=== PATIENT | female | born 1965 | race Caucasian/White ===

== ENCOUNTER 2020-09-29 18:24 | Emergency (ER) | payer MEDICAID, SELFPAY ==
[2020-09-29 18:51] VITALS: BP 117/81; PULSE 90; RESP 16; TEMP 37.1; O2SAT 99; BMI 25.9
--- NOTE | 2020-09-29 19:07 | ED.EXTPRO ---
HPI - Extremity Problem General Chief complaint: Extremity Injury, Upper Stated complaint: HAND PAIN Time Seen by Provider: 09/29/20 18:53 Source: patient Mode of arrival: ambulatory Limitations: no limitations History of Present Illness HPI Narrative: patient has history of arthritis no history of trauma noticed pain in the right wrist since yesterday with slight swelling similar to in the past when she had arthritis flare up Complaint: extremity pain Onset (ago): day(s) Pain Consistency: constant Location: right Severity scale (1-10): 4 Quality: aching Related Data Previous Rx's Medication Instructions Recorded diclofenac sodium 50 mg PO BID #20 tab 09/29/20 prednisone 40 mg PO DAILY #10 tab 09/29/20 Allergies Allergy/AdvReac Type Severity Reaction Status Date / Time Penicillins Allergy Intermediate RASH Unverified 08/12/20 15:12 aspirin [Aspirin] Allergy Mild EYES Unverified 08/12/20 15:12 SWELLING citalopram Allergy Unknown chest pain Verified 07/07/20 00:00 penicillin V Allergy Unknown Verified 07/07/20 00:00 Diltiazem HCl Allergy Unknown Uncoded 07/07/20 00:00 Review of Systems Review of Systems: REVIEW OF SYSTEMS: Pertinent positives and negatives are stated above in the history. GEN: no fevers, chills, fatigue HEENT: no nasal congestion, sore throat, ear pain NEURO: no headache, dizziness, focal weakness PULM: no cough, shortness of breath CV: no chest pain, palpitations, LE edema ABD: no abdominal pain, nausea, vomiting, diarrhea : no dysuria, urgency, frequency SKIN: no rash ROS otherwise negative x 10 PMFSH Past Medical History Medical History Acute anxiety Arthritis Depression Diabetic acidosis, type II GERD (gastroesophageal reflux disease) HTN (hypertension) Right knee injury Social History Social History Alcohol intake: never Smoking Status: Current every day smoker Smoked in Last 30 Days: Yes Use of substances other than those prescribed or required for medical reasons: No Advance Directives: No Advance Directives Information Provided: Yes Physical Exam Vital Signs: Vital Signs: Vital Signs Temp Pulse Resp BP Pulse Ox 09/29/20 18:51 98.7 F 90 16 117/81 99 Body Mass Index 25.9 Appearance: Alert. Oriented X3. No acute distress. Eyes: Pupils equal, round and reactive to light. ENT: Pharynx normal. Neck: Normal inspection. Neck supple. CVS: Normal heart rate and rhythm. Pulses normal. Respiratory: No respiratory distress. Breath sounds normal. Abdomen: Soft and nontender. Skin: Skin warm and dry. N Extremities: right wrist slightly swollen and tender no signs of infection Neuro: Oriented X 3. No motor deficit. No sensory deficit. Course Course Course Narrative: patient with arthritis of right wrist x-ray negative for any significant change. Will apply the wrist pain and give the diclofenec sodium along with prednisone for inflammation Discharge Plan Discharge Clinical Impression: Arthritis of right wrist Patient Disposition: Home, Self-Care Instructions: Arthritis (ED) Additional Instructions: wear the splint for support, take pain medication and prednisone as prescribed. Follow-up with primary care doctor Prescriptions: New prednisone 20 mg tablet 40 mg PO DAILY Qty: 10 RF: 0 diclofenac sodium 50 mg tablet,delayed release (DR/EC) 50 mg PO BID Qty: 20 RF: 0
--- NOTE | 2020-09-29 19:09 | XR_ITS ---
EXAMINATION: RIGHT HAND-WRIST CLINICAL INFORMATION: Severe pain. COMPARISON: None TECHNIQUE: 4 views of the hand and wrist FINDINGS: There is no fracture. No dislocation. No focal bone lesion or abnormal periosteal reaction. Mild degenerative change of the first metacarpal carpal joint of joint narrowing and subchondral osteosclerosis. No soft tissue calcifications. XR/XR hand wrist RT IMPRESSION: 1. No acute abnormality. 2. Degenerative joint disease of the first metacarpal carpal joint.
[2020-09-29] MEDS: predniSONE 20 MG TABLET 40 MG PO (19:19)
[2020-09-29] MEDS: oxyCODONE HCl Immed Release 5 MG TABLET 10 MG PO (19:20)
== END 2020-09-29 20:00 | disposition home or self-care (01) ==
PROVIDERS: Emergency Provider Internal Medicine; PCP Family Medicine
DX: M19.031 Primary osteoarthritis, right wrist (principal); M25.532 Pain in left wrist; M25.531 Pain in right wrist; Z79.899 Other long term (current) drug therapy; F17.210 Nicotine dependence, cigarettes, uncomplicated; Z71.6 Tobacco abuse counseling
CPT/HCPCS: 73110; 73130; 99283; 99284

== ENCOUNTER 2020-10-10 11:17 | Emergency (ER) | payer MEDICAID, SELFPAY ==
--- NOTE | 2020-10-10 | XR_ITS ---
EXAMINATION: XR RIBS, LEFT CLINICAL INFORMATION: Fall with left-sided rib pain COMPARISON: Chest x-ray 12/23/2019 TECHNIQUE: 3 views of the left ribs were obtained. FINDINGS: Cardiac silhouette is normal in size. The lungs are well aerated. No lobar consolidation, pleural effusion or pneumothorax. No left-sided rib fracture. XR/XR ribs LT min 3V w CXR1V IMPRESSION: No left-sided rib fractures.
[2020-10-10 11:23] VITALS: BP 112/79; PULSE 100; RESP 18; TEMP 36.4; O2SAT 100; BMI 25.6
--- NOTE | 2020-10-10 11:51 | ED.BACK ---
HPI - Back Pain/Injury General Chief Complaint: Back Pain/Injury Stated Complaint: FLANK PAIN Time Seen by Provider: 10/10/20 11:51 Source: patient Mode of arrival: ambulatory Limitations: no limitations History of Present Illness HPI Narrative: 55 y/o female presenting with left sided rib pain and middle back pain after a slip and fall on her stairs at home 2 days ago. She states the pain is worse with movement and with deep breaths and is all along her left side. She denies shortness of breath or difficulty breathing. She has not been taking any medications for the pain. MD elicited complaint: fall Pertinent past history: recent trauma Onset (ago): day(s) (2) Timing: constant Severity: moderate Pain scale (0-10): 8 Similar Symptoms Previously: No Quality: sharp and aching Location: left flank Radiation: none Exacerbating factors: movement, deep breaths and coughing/sneezing Relieving factors: immobilization Context: fall Associated symptoms: denies other symptoms Work related injury: No Related Data Previous Rx's Medication Instructions Recorded diclofenac sodium 50 mg PO BID #20 tab 09/29/20 prednisone 40 mg PO DAILY #10 tab 09/29/20 cyclobenzaprine 5 mg PO TID PRN #14 tab 10/10/20 hydrocodone-acetaminophen [[place]] 1 tab PO Q8H PRN #6 tab 10/10/20 lidocaine [Lidoderm] 1 patch TOPICAL DAILY #15 ea 10/10/20 naproxen 500 mg PO BID PRN #20 tab 10/10/20 Allergies Allergy/AdvReac Type Severity Reaction Status Date / Time Penicillins Allergy Intermediate RASH Unverified 08/12/20 15:12 aspirin [Aspirin] Allergy Mild EYES Unverified 08/12/20 15:12 SWELLING citalopram Allergy Unknown chest pain Verified 07/07/20 00:00 penicillin V Allergy Unknown Verified 07/07/20 00:00 Diltiazem HCl Allergy Unknown Uncoded 07/07/20 00:00 Review of Systems Review of Systems: Constitutional: No Fever, No Chills Cardiovascular: No Chest Pain, No SOB, No Orthopnea, No Edema Respiratory: No Cough, No Sputum, No Wheezing, No dyspnea Gastrointestinal: No Nausea, No Vomiting, No Diarrhea, No abdominal Pain Genitourinary: No Dysuria, No Urinary Frequency, No Hematuria Musculoskeletal: + joint pain, + Myalgias Skin: No Skin Lesions, No rash Neuro: No Weakness, No Numbness, No Dizziness, No Headache Psych: No Anxiety/Panic, No Depression Heme/Lymph: No Bruising PMFSH Past Medical History Attestation statement: The following information was validated with the patient. Medical History Acute anxiety Arthritis Depression Diabetic acidosis, type II GERD (gastroesophageal reflux disease) HTN (hypertension) Right knee injury Social History Social History Alcohol intake: never Smoking Status: Current every day smoker Advance Directives: No Advance Directives Information Provided: Yes Physical Exam Vital Signs: Vital Signs: Last Vital Signs Temp 97.6 F 10/10/20 11:23 Pulse 100 10/10/20 11:23 Resp 18 10/10/20 11:23 BP 112/79 10/10/20 11:23 Pulse Ox 100 10/10/20 11:23 Body Mass Index 25.6 Appearance: Alert. Oriented X3. Appears uncomfortable. HEENT: normal inspection CVS: Normal heart rate and rhythm. Pulses normal. Respiratory: No respiratory distress. Lung sounds are clear bilaterally. Skin: Skin warm and dry. Normal skin color. Normal skin turgor. No rashes. Back: no ecchymosis of left flank, significant tenderness to posterior/lateral ribs, soft tissue tenderness of latitimus dorsi and infraspinatous Extremities: normal left shoulder, elbow and wrist inspection and palpation. Full ROM. Neuro: Oriented X 3. No motor deficit. No sensory deficit. Course Course Course Narrative: 55 y/o with left sided lateral/posterior rib pain and middle back pain after she fell down stairs 2 days ago. No deformity or bruising. She is not on anticoagulation, did not hit her head or lose consciousness. XR pending to assess for possible rib fracture. Reevaluation(s) Reevaluation #1: Spoke with [facility] - error in sending results - they were discussed over the phone. No acute abnormality was seen, including no PTX, no rib fractures. Results were discussed with patient. Will treat for contusion. Stable for d/c. Encouraged to f/u with PCP this week. Discharge Plan Discharge Clinical Impression: Contusion of back wall of thorax Qualifiers: Encounter type: initial encounter Thoracic wall location detail: left Qualified Code(s): S20.222A - Contusion of left back wall of thorax, initial encounter Patient Disposition: Home, Self-Care Instructions: Contusion in Adults (ED) Additional Instructions: Rest. Use ice and/or heat to the area several times per day to help with pain and discomfort. Follow up with your doctor this week. Take the medications as prescribed as needed for pain. If you develop shortness of breath, difficulty breathing or chest pain call 911 or come back to the ER for further evaluation. Prescriptions: New lidocaine [Lidoderm] 5 % adhesive patch,medicated 1 patch topical DAILY Qty: 15 RF: 0 naproxen 500 mg tablet 500 mg PO BID PRN (Reason: pain) Qty: 20 RF: 0 cyclobenzaprine 5 mg tablet 5 mg PO TID PRN (Reason: muscle spasm) Qty: 14 RF: 0 hydrocodone-acetaminophen [[place]] 5-325 mg tablet 1 tab PO Q8H PRN (Reason: pain) Qty: 6 RF: 0 No Action prednisone 20 mg tablet 40 mg PO DAILY Qty: 10 RF: 0 diclofenac sodium 50 mg tablet,delayed release (DR/EC) 50 mg PO BID Qty: 20 RF: 0
[2020-10-10] MEDS: Ibuprofen 600 MG TABLET PO (12:07)
[2020-10-10] MEDS: HYDROcodone Bit/Acetam 5/325 TABLET 1 TAB PO (12:08)
== END 2020-10-10 13:30 | disposition home or self-care (01) ==
PROVIDERS: Emergency Provider Emergency Medicine; PCP Family Medicine
DX: S20.222A Contusion of left back wall of thorax, initial encounter (principal); S30.0XXA Contusion of lower back and pelvis, initial encounter; M54.5 Low back pain; F17.200 Nicotine dependence, unspecified, uncomplicated; W10.9XXA Fall (on) (from) unspecified stairs and steps, initial encounter; Y93.9 Activity, unspecified; Y92.9 Unspecified place or not applicable; Y99.9 Unspecified external cause status; Z71.6 Tobacco abuse counseling; Z79.899 Other long term (current) drug therapy
CPT/HCPCS: 71101; 99283

== ENCOUNTER 2020-11-22 11:32 | Outpatient (REF) | payer MEDICAID, SELFPAY | END 2020-11-22 11:33 | disposition home or self-care (01) | LOC: HO.LAB 11:32 | PROVIDERS: Visit Provider Internal Medicine | DX: Z20.828 Contact with and (suspected) exposure to other viral communicable diseases (principal) | CPT/HCPCS: C9803; U0003 ==

== ENCOUNTER 2021-05-03 12:47 | Outpatient (REF) | payer OTHER, SELFPAY ==
--- NOTE | ~2021-05-03 | MM_ITS ---
EXAMINATION: MM SCREENING DIGITAL BREAST TOMOSYNTHESIS, BILATERAL CLINICAL INFORMATION: Screening. Asymptomatic. The lifetime risk of breast cancer based on the Tyrer-Cuzick Model is 7%. COMPARISON: Mammography: 11/04/2015, 08/26/2014 TECHNIQUE: Digital breast tomosynthesis is performed in both the craniocaudal and mediolateral oblique views along with computer-aided detection (CAD). Synthesized 2D images are generated from the tomosynthesis. FINDINGS: There are scattered areas of fibroglandular density (ACR BI-RADS breast composition Category b). Parenchymal pattern is similar to prior studies. There is no significant mass or architectural abnormality or developing density. No abnormal calcifications. The axilla and skin contours are unremarkable. No significant changes. MM/MM tomosynthesis screening BI IMPRESSION: No mammographic evidence of malignancy. ASSESSMENT: BI-RADS 1: Negative RECOMMENDATION: Routine annual mammography screening. This patient's information was entered into a reminder system with a target due date for their next mammogram.
== END 2021-05-03 12:48 | disposition home or self-care (01) ==
LOC: HO.MAMMO 12:47
PROVIDERS: PCP Family Medicine; Visit Provider Family Medicine
DX: Z12.31 Encounter for screening mammogram for malignant neoplasm of breast (principal)
CPT/HCPCS: 77063; 77067

== ENCOUNTER 2021-07-08 19:57 | Emergency (ER) | payer MEDICAID, SELFPAY ==
--- NOTE | ~2021-07-08 | XR_ITS ---
EXAMINATION: XR KNEE, RIGHT CLINICAL INFORMATION: Pain and swelling status post fall COMPARISON: 12/23/2019 TECHNIQUE: Four views of the right knee. FINDINGS: No fracture or subluxation. Moderate lateral compartment joint space narrowing. Tricompartmental marginal osteophytes are present. Moderate joint effusion. XR/XR knee RT 4V IMPRESSION: Moderate joint effusion. Moderate tricompartment degenerative change. No acute fracture
[2021-07-08 20:05] VITALS: BP 123/81; PULSE 104; RESP 16; TEMP 36.5; O2SAT 98; BMI 25.6
--- NOTE | 2021-07-08 22:19 | ED_ITS ---
HPI - Extremity Injury (Lower) General Chief Complaint: Extremity Injury, Lower Stated Complaint: fall Time Seen by Provider: 07/08/21 22:18 Source: patient Mode of arrival: ambulatory History of Present Illness HPI Narrative: 55-year-old female with a past medical history of anxiety, arthritis, depression, diabetes, GERD, hypertension, presenting to the ED complaining of right knee pain and swelling s/p trip and fall on stairs 3 days ago. Reports fell on buttock/twisted knee, denies head trauma or LOC. Reports pain with ambulation/movement. Denies numbness, tingling, weakness MD complaint: knee injury Related Data Previous Rx's Medication Instructions Recorded diclofenac sodium 50 mg 50 mg PO BID #20 tab 09/29/20 tablet,delayed release prednisone 20 mg tablet 40 mg PO DAILY #10 tab 09/29/20 cyclobenzaprine 5 mg tablet 5 mg PO TID PRN #14 tab 10/10/20 hydrocodone 5 mg-acetaminophen 325 1 tab PO Q8H PRN #6 tab 10/10/20 mg tablet ([place]) lidocaine 5 % topical patch 1 patch TOPICAL DAILY #15 ea 10/10/20 (Lidoderm) naproxen 500 mg tablet 500 mg PO BID PRN #20 tab 10/10/20 acetaminophen 500 mg tablet 500 mg PO Q6H PRN #20 tab 07/08/21 (Tylenol Extra Strength) naproxen 500 mg tablet 500 mg PO BID PRN 10 Days #20 tab 07/08/21 Allergies Allergy/AdvReac Type Severity Reaction Status Date / Time Penicillins Allergy Intermediate RASH Unverified 08/12/20 15:12 aspirin [Aspirin] Allergy Mild EYES Unverified 08/12/20 15:12 SWELLING citalopram Allergy Unknown chest pain Verified 07/07/20 00:00 penicillin V Allergy Unknown Verified 07/07/20 00:00 Diltiazem HCl Allergy Unknown Uncoded 07/07/20 00:00 Review of Systems Review of Systems: Constitutional: No Fever, No Chills Musculoskeletal: + joint pain, No Myalgias, + Joint Swelling Skin: No Skin Lesions, No rash Neuro: No Weakness, No Numbness, No Paresthesias, no head trauma, no LOC Yes all other systems are reviewed and are negative PMFSH Past Medical History Attestation statement: The following information was validated with the patient. Medical History Acute anxiety Arthritis Depression Diabetic acidosis, type II GERD (gastroesophageal reflux disease) HTN (hypertension) Right knee injury Social History Social History Alcohol intake: never Advance Directives: No Advance Directives Information Provided: Yes Patient : No Physical Exam Vital Signs: Vital Signs: Last Vital Signs Temp 97.7 F 07/08/21 20:05 Pulse 104 H 07/08/21 20:05 Resp 16 07/08/21 20:05 BP 123/81 07/08/21 20:05 Pulse Ox 98 07/08/21 20:05 Body Mass Index 25.6 Const: General: cooperative and healthy appearing Orientation/consciousness: patient oriented x3 Limitations: no limitations HENMT: Head: Yes normal to inspection and Yes atraumatic Ears: hearing grossly normal bilaterally General nose exam: Normal external nose present Face and sinus: Yes normal facial exam Eyes: General: appearance normal, both eyes and all related structures EOM: EOMs intact bilaterally Neck: Neck: Yes normal visual inspection Resp: Effort & Inspection: normal respiratory effort and no respiratory distress Cardio: Rate: regular rate Peripheral pulses: dorsalis pedis present Skin: Rashes: no rashes Wounds: no wounds Neuro: General: patient oriented x3 and tone normal Extrem: Other: Right knee with notable swelling/effusion > medial aspect. Tender to palpation. Decreased flexion secondary to pain. Sensation intact to light touch. NV intact Course Course Course Narrative: XR knee RT 4V IMPRESSION: Moderate joint effusion. Moderate tricompartment degenerative change. No acute fracture ?>> results discussed with patient. Luis wrap applied. Discussion needs to follow-up with orthopedics/PCP for likely MRI MDM - Extremity Injury (Lower) MDM Narrative Medical decision making narrative: ?55-year-old female with a past medical history of anxiety, arthritis, depression, diabetes, GERD, hypertension, presenting to the ED complaining of right knee pain and swelling s/p trip and fall on stairs 3 days ago. On exam mildly tachycardic likely from pain, physical exam as above. Concern for ligamental/tendon or meniscal injury vs fracture. Will obtain x-rays Medical Records Attestation: I reviewed the patient's medical records. Lab Data Attestation: I reviewed the patient's lab results. Discharge Plan Discharge Clinical Impression: Joint effusion Qualifiers: Effusion of joint location: knee Laterality: right Qualified Code(s): M25.461 - Effusion, right knee Patient Disposition: Home, Self-Care Instructions: Swollen Knee Joint (ED) Additional Instructions: Your x-ray showed a moderate joint effusion, you likely have a ligamental, tendon, or meniscal injury, you will likely need MRI outpatient Follow-up with her primary care doctor or Orthopedics Wear Luis about home for comfort/debility Ice and elevate her knee Naproxen as an anti-inflammatory/pain medication, take with food In addition take Tylenol If pain becomes unbearable return to the ED Prescriptions: New acetaminophen [Tylenol Extra Strength] 500 mg tablet 500 mg PO Q6H PRN (Reason: pain or fever) Qty: 20 RF: 0 naproxen 500 mg tablet 500 mg PO BID PRN (Reason: pain) 10 Days Qty: 20 RF: 0 No Action prednisone 20 mg tablet 40 mg PO DAILY Qty: 10 RF: 0 diclofenac sodium 50 mg tablet,delayed release (DR/EC) 50 mg PO BID Qty: 20 RF: 0 lidocaine [Lidoderm] 5 % adhesive patch,medicated 1 patch topical DAILY Qty: 15 RF: 0 naproxen 500 mg tablet 500 mg PO BID PRN (Reason: pain) Qty: 20 RF: 0 cyclobenzaprine 5 mg tablet 5 mg PO TID PRN (Reason: muscle spasm) Qty: 14 RF: 0 hydrocodone-acetaminophen [[place]] 5-325 mg tablet 1 tab PO Q8H PRN (Reason: pain) Qty: 6 RF: 0 Referrals: Angela Diamond PA-C [[facility]] - 5 days
[2021-07-08] MEDS: Ketorolac Tromethamine 15 MG/ML VIAL 30 MG IM (22:43)
== END 2021-07-08 22:43 | disposition home or self-care (01) ==
PROVIDERS: Emergency Provider Emergency Medicine; PCP Family Medicine
DX: M25.461 Effusion, right knee (principal); M25.561 Pain in right knee; I10 Essential (primary) hypertension; Z79.899 Other long term (current) drug therapy
CPT/HCPCS: 73564; 96372; 99283; 99284; J1885

== ENCOUNTER → 2021-08-03 08:19 | Outpatient (BNVA) | payer MEDICAID, SELFPAY | PROVIDERS: PCP Family Medicine; Referring Provider Family Medicine; Visit Provider Physician Assistant ==

== ENCOUNTER → 2021-09-20 08:10 | Day surgery (SDC) | payer MEDICAID, SELFPAY ==
[2021-09-14 12:09] VITALS: BMI 27.4
--- NOTE | 2021-09-19 08:51 | HO.ANESPROP2 ---
HPI - Anesthesia Eval Consult details Narrative: 09/20/21 - Cx'd d/t cough, tachy, low O2. Pt to go to ED or f/u with PCP 56yo F for Colonoscopy PMFSH Active Problems Active Problems: All Active Problems (Updated 09/14/21 @ 12:15 by Haley Alan, RN) Encounter for screening colonoscopy (Acute) Past Medical History Medical History (Updated 09/14/21 @ 12:15 by Haley Alan, RN) Acute anxiety Arthritis Depression Diabetic acidosis, type II GERD (gastroesophageal reflux disease) HTN (hypertension) Hx of renal calculi Right knee injury Surgical History Surgical History (Updated 09/14/21 @ 12:14 by Haley Alan, RN) History of hysterectomy Hx of arthroscopy of right knee Hx of cystoscopy Social History Social History (Updated 09/14/21 @ 12:09 by Haley Alan, RN) Household Members: Family Patient Tobacco Use Status: Never used Tobacco Are you DNR?: No Advance Directives: No Advance Directives Information Provided: No (mailed info) Advance Directives on File: No Recently lost weight without trying: No Current occupational status: employed Meds Allergies Allergy/AdvReac Type Severity Reaction Status Date / Time aspirin [Aspirin] Allergy Intermediate EYES Verified 09/14/21 12:06 SWELLING Penicillins Allergy Intermediate RASH Verified 09/14/21 12:06 citalopram Allergy Unknown chest pain Verified 09/14/21 12:06 Diltiazem HCl Allergy Unknown Unknown Uncoded 09/14/21 12:06 Home Medications Medication Instructions Recorded Confirmed Last Taken Type amitriptyline 50 mg tablet 50 mg PO DAILY 08/03/21 09/14/21 Unknown History atorvastatin 20 mg tablet 20 mg PO DAILY 08/03/21 09/14/21 Unknown History hydroxyzine HCl 25 mg tablet 25 mg PO BID PRN 08/03/21 09/14/21 Unknown History lisinopril 40 mg tablet 40 mg PO DAILY 08/03/21 09/14/21 Unknown History metformin 500 mg tablet 500 mg PO BID 08/03/21 09/14/21 Unknown History metoprolol succinate 50 mg 50 mg PO DAILY 08/03/21 09/14/21 Unknown History tablet,extended release 24 hr omeprazole 20 mg capsule,delayed 20 mg PO DAILY 08/03/21 09/14/21 Unknown History release sertraline 100 mg tablet 100 mg PO DAILY 08/03/21 09/14/21 Unknown History tramadol 50 mg tablet 50 mg PO DAILY 08/03/21 09/14/21 Unknown History ciclesonide 80 mcg/actuation 1 puff INHALATION BID 09/14/21 09/14/21 Unknown History aerosol inhaler ([place]) levalbuterol tartrate 45 2 puff PO Q6H 09/14/21 09/14/21 Unknown History mcg/actuation aerosol inhaler (Xopenex HFA) Exam Exam Date and Time: September 19, 2021 0851 Height,Weight and Vital Signs: Height 5 ft 2 in Weight 68.039 kg Assessment and Plan Assessment Anesthesia Assessment: Chart Reviewed
--- NOTE | 2021-09-20 08:41 | PC.NURSE ---
patient has nonproductive cough x2days, lungs clear, used inhaler this morning, 02 saturation between 90-94%, tachycardic 101-110. afebrile. poc 380. anesthesia aware.
[2021-09-20 08:52] LABS: Glucose, Whole Blood 357 mg/dL (60-115)
--- NOTE | 2021-09-20 08:55 | PC.NURSE ---
with interpretor, procedure cancelled. patient decided to walk to ED to see if there is a wait. she will go to her pcp today if she doesn't stay in the ED. Dr Hernandez and Dr Selby aware and agrees with plan of care.
--- NOTE | 2021-09-20 09:10 | PC.NURSE ---
patient aware of importance of following up with ED or pcp
[2021-09-20 11:15] LABS: Glucose, Whole Blood 380 mg/dL (60-115)
== END ==
PROVIDERS: PCP Family Medicine; Visit Provider Internal Medicine Gastroenterology
DX: Z12.11 Encounter for screening for malignant neoplasm of colon (principal); Z53.09 Procedure and treatment not carried out because of other contraindication; E11.10 Type 2 diabetes mellitus with ketoacidosis without coma; Z79.84 Long term (current) use of oral hypoglycemic drugs
CPT/HCPCS: 82947

== ENCOUNTER 2021-11-06 16:26 | Emergency (ER) | payer MEDICAID, SELFPAY ==
[2021-11-06 16:32] VITALS: BP 121/82; PULSE 86; RESP 18; TEMP 36.9; O2SAT 98; BMI 27.3
[2021-11-06 16:42] LABS: Glucose, Whole Blood 444 mg/dL (60-115)
--- NOTE | 2021-11-06 19:36 | ED_ITS ---
HPI - General Adult General Chief complaint: General Medical Stated complaint: blood sugar is high Time Seen by Provider: 11/06/21 19:36 Source: patient Mode of arrival: ambulatory Limitations: language barrier History of Present Illness HPI narrative: Patient diabetic for more than 7 years on oral hypoglycemic metf ormin 500 mg twice daily for last few days noted blood sugars running high her usual blood sugar is around 300 range and for last 1 week more than 400 and today was reading high. Patient denied any fever or chills no urinary complaints no cough no shortness of breath no open wounds Related Data Home Medications Medication Instructions Recorded Confirmed amitriptyline 50 mg tablet 50 mg PO DAILY 08/03/21 09/14/21 atorvastatin 20 mg tablet 20 mg PO DAILY 08/03/21 09/14/21 hydroxyzine HCl 25 mg tablet 25 mg PO BID PRN 08/03/21 09/14/21 lisinopril 40 mg tablet 40 mg PO DAILY 08/03/21 09/14/21 metformin 500 mg tablet 500 mg PO BID 08/03/21 09/14/21 metoprolol succinate 50 mg 50 mg PO DAILY 08/03/21 09/14/21 tablet,extended release 24 hr omeprazole 20 mg capsule,delayed 20 mg PO DAILY 08/03/21 09/14/21 release sertraline 100 mg tablet 100 mg PO DAILY 08/03/21 09/14/21 tramadol 50 mg tablet 50 mg PO DAILY 08/03/21 09/14/21 ciclesonide 80 mcg/actuation 1 puff INHALATION BID 09/14/21 09/14/21 aerosol inhaler (Alvesco) levalbuterol tartrate 45 2 puff PO Q6H 09/14/21 09/14/21 mcg/actuation aerosol inhaler (Xopenex HFA) Previous Rx's Medication Instructions Recorded cyclobenzaprine 5 mg tablet 5 mg PO TID PRN #14 tab 10/10/20 lidocaine 5 % topical patch 1 patch TOPICAL DAILY #15 ea 10/10/20 (Lidoderm) acetaminophen 500 mg tablet 500 mg PO Q6H PRN #20 tab 07/08/21 (Tylenol Extra Strength) bisacodyl 5 mg tablet,delayed 10 mg PO ONCE 1 Days #2 tab 09/30/21 release (Dulcolax (bisacodyl)) polyethylene glycol 3350 17 238 g PO ONCE 1 Days #238 g 09/30/21 gram/dose oral powder (Miralax) Allergies Allergy/AdvReac Type Severity Reaction Status Date / Time aspirin [Aspirin] Allergy Intermediate EYES Verified 10/24/21 16:12 SWELLING Penicillins Allergy Intermediate RASH Verified 10/24/21 16:12 citalopram Allergy Unknown chest pain Verified 10/24/21 16:12 Diltiazem HCl Allergy Unknown Unknown Uncoded 10/24/21 16:12 Review of Systems Review of Systems: Yes all other systems are reviewed and are negative [facility] Past Medical History Medical History Acute anxiety Arthritis Depression Diabetic acidosis, type II GERD (gastroesophageal reflux disease) HTN (hypertension) Hx of renal calculi On beta mariaelena at home Right knee injury Surgical History History of hysterectomy Hx of arthroscopy of right knee Hx of cystoscopy Social History Social History Household Members: Family Patient Tobacco Use Status: Never used Tobacco Advance Directives: No Advance Directives Information Provided: Yes Patient : No Current occupational status: employed Physical Exam Vital Signs: Vital Signs: Last Vital Signs Temp 97.8 F 11/06/21 22:24 Pulse 99 11/06/21 22:24 Resp 16 11/06/21 22:24 BP 118/79 11/06/21 22:24 Pulse Ox 98 11/06/21 22:24 BMI result Body Mass Index 27.3 Appearance: Alert. Oriented X3. No acute distress. Eyes: No pallor or icterus ENT: Pharynx normal. Oral Mucosa moist Neck: Normal inspection. Neck supple. CVS: Normal heart rate and rhythm. Pulses normal. Respiratory: No respiratory distress. Equal air entry bilateral, no wheezing/r ales/rhonchi Abdomen: Soft and nontender. Bowel sounds are present, no mass palpable, no CVA tenderness Skin: Skin warm and dry. Normal skin color. Normal skin turgor. Extremities: No lower extremity edema. No calf tenderness Neuro: Oriented X 3. No motor deficit. Medical Decision Making MDM Narrative Medical decision making narrative: Patient diabetic nonketotic improved after insulin will increase the dose of metformin to 1000 mg twice daily advised to follow with PCP Lab Data Result diagrams: 11/06/21 19:39 11/06/21 19:39 Labs: Lab Results 11/06/21 11/06/21 11/06/21 Range/Units 16:39 19:38 19:39 WBC 9.3 (4.8-10.8) X10*3/uL RBC 5.04 (4.20-5.50) X10*6/uL Hgb 12.5 (12.0-16.0) g/dl Hct 39.4 (37.0-47.0) % MCV 78.2 L (80.0-98.0) fL MCH 24.8 L (27.0-33.0) pg MCHC 31.7 (31.0-35.0) g/dl RDW 14.3 (11.0-16.0) % Plt Count 234 (160-400) X10*3/uL MPV 10.0 (9.4-12.3) fL Immature Gran % (Auto) 0.6 H (0.0-0.4) % Neut % (Auto) 71.2 (45-73) % Lymph % (Auto) 19.4 L (20-40) % [place] % (Auto) 4.0 (2-11) % Eos % (Auto) 4.7 H (0-4) % Baso % (Auto) 0.1 (0-2) % Lymph # (Auto) 1.8 (1.2-4.9) X10*3/uL [place] # (Auto) 0.4 (0.1-1.2) X10*3/uL Eos # (Auto) 0.4 (0.0-0.4) X10*3/uL Baso # (Auto) 0.0 (0.0-0.2) X10*3/uL Abs Immat Gran (auto) 0.06 H (0.00-0.03) X10*3/uL Absolute Neuts (auto) 6.6 (2.0-8.3) x10*3/uL Absolute Nucleated RBC 0.000 (0.0-0.012) X10*3/uL Nucleated RBC % (auto) 0.0 (0.0-0.2) /100WBC Sodium (135-145) mmol/L Potassium (3.3-5.1) mmol/L Chloride (96-108) mmol/L Carbon Dioxide (22-29) mmol/L Anion Gap (12-20) BUN (9-16) mg/dL Creatinine (0.5-1.4) mg/dL Estim Creat Clear Calc Estimated GFR POC Glucose 444 H* (60-115) mg/dL Random Glucose (60-115) mg/dL Calcium (8.4-10.2) mg/dL Phosphorus (2.7-4.5) mg/dL Magnesium (1.6-2.6) mg/dL Total Bilirubin (0.0-1.0) mg/dL AST (5-31) U/L ALT (0-31) U/L Alkaline Phosphatase (39-117) U/L Total Protein (6.5-8.0) g/dL Albumin (3.5-5.0) g/dL Urine Color Urine Appearance Urine pH (5.0-8.0) Ur Specific [place] (1.005-1.025) Urine Protein (NEG-TRACE) MG/DL Urine Glucose (UA) (NEG) MG/DL Urine Ketones (NEG) MG/DL Urine Blood (NEG) Urine Nitrite (NEG) Ur Leukocyte Esterase (NEG) Urine RBC (0) /HPF Urine WBC (0-4) /HPF Ur Squamous Epith Cells /LPF Urine Bacteria /LPF Urine Mucus /LPF Ethyl Alcohol < 10 mg/dL Acetone, Qual (Negative) 11/06/21 11/06/21 11/06/21 Range/Units 19:39 19:56 20:36 WBC (4.8-10.8) X10*3/uL RBC (4.20-5.50) X10*6/uL Hgb (12.0-16.0) g/dl Hct (37.0-47.0) % MCV (80.0-98.0) fL MCH (27.0-33.0) pg MCHC (31.0-35.0) g/dl RDW (11.0-16.0) % Plt Count (160-400) X10*3/uL MPV (9.4-12.3) fL Immature Gran % (Auto) (0.0-0.4) % Neut % (Auto) (45-73) % Lymph % (Auto) (20-40) % [place] % (Auto) (2-11) % Eos % (Auto) (0-4) % Baso % (Auto) (0-2) % Lymph # (Auto) (1.2-4.9) X10*3/uL [place] # (Auto) (0.1-1.2) X10*3/uL Eos # (Auto) (0.0-0.4) X10*3/uL Baso # (Auto) (0.0-0.2) X10*3/uL Abs Immat Gran (auto) (0.00-0.03) X10*3/uL Absolute Neuts (auto) (2.0-8.3) x10*3/uL Absolute Nucleated RBC (0.0-0.012) X10*3/uL Nucleated RBC % (auto) (0.0-0.2) /100WBC Sodium 137 (135-145) mmol/L Potassium 4.8 (3.3-5.1) mmol/L Chloride 102 (96-108) mmol/L Carbon Dioxide 25 (22-29) mmol/L Anion Gap 15 (12-20) BUN 15 (9-16) mg/dL Creatinine 1.20 (0.5-1.4) mg/dL Estim Creat Clear Calc 45.9 Estimated GFR 47 POC Glucose 144 H (60-115) mg/dL Random Glucose 292 H (60-115) mg/dL Calcium 9.7 (8.4-10.2) mg/dL Phosphorus 3.0 (2.7-4.5) mg/dL Magnesium 1.6 (1.6-2.6) mg/dL Total Bilirubin 0.6 (0.0-1.0) mg/dL AST 29 (5-31) U/L ALT 30 (0-31) U/L Alkaline Phosphatase 190 H (39-117) U/L Total Protein 7.5 (6.5-8.0) g/dL Albumin 4.1 (3.5-5.0) g/dL Urine Color YELLOW Urine Appearance CLEAR Urine pH 6.0 (5.0-8.0) Ur Specific [place] >= 1.030 H (1.005-1.025) Urine Protein NEG (NEG-TRACE) MG/DL Urine Glucose (UA) >=1000 H (NEG) MG/DL Urine Ketones NEG (NEG) MG/DL Urine Blood NEG (NEG) Urine Nitrite NEG (NEG) Ur Leukocyte Esterase NEG (NEG) Urine RBC 0-2 (0) /HPF Urine WBC 0 (0-4) /HPF Ur Squamous Epith Cells 2+ /LPF Urine Bacteria TRACE /LPF Urine Mucus 1+ /LPF Ethyl Alcohol mg/dL Acetone, Qual Negative (Negative) 11/06/21 11/06/21 Range/Units 21:37 22:04 WBC (4.8-10.8) X10*3/uL RBC (4.20-5.50) X10*6/uL Hgb (12.0-16.0) g/dl Hct (37.0-47.0) % MCV (80.0-98.0) fL MCH (27.0-33.0) pg MCHC (31.0-35.0) g/dl RDW (11.0-16.0) % Plt Count (160-400) X10*3/uL MPV (9.4-12.3) fL Immature Gran % (Auto) (0.0-0.4) % Neut % (Auto) (45-73) % Lymph % (Auto) (20-40) % [place] % (Auto) (2-11) % Eos % (Auto) (0-4) % Baso % (Auto) (0-2) % Lymph # (Auto) (1.2-4.9) X10*3/uL [place] # (Auto) (0.1-1.2) X10*3/uL Eos # (Auto) (0.0-0.4) X10*3/uL Baso # (Auto) (0.0-0.2) X10*3/uL Abs Immat Gran (auto) (0.00-0.03) X10*3/uL Absolute Neuts (auto) (2.0-8.3) x10*3/uL Absolute Nucleated RBC (0.0-0.012) X10*3/uL Nucleated RBC % (auto) (0.0-0.2) /100WBC Sodium (135-145) mmol/L Potassium (3.3-5.1) mmol/L Chloride (96-108) mmol/L Carbon Dioxide (22-29) mmol/L Anion Gap (12-20) BUN (9-16) mg/dL Creatinine (0.5-1.4) mg/dL Estim Creat Clear Calc Estimated GFR POC Glucose 68 102 (60-115) mg/dL Random Glucose (60-115) mg/dL Calcium (8.4-10.2) mg/dL Phosphorus (2.7-4.5) mg/dL Magnesium (1.6-2.6) mg/dL Total Bilirubin (0.0-1.0) mg/dL AST (5-31) U/L ALT (0-31) U/L Alkaline Phosphatase (39-117) U/L Total Protein (6.5-8.0) g/dL Albumin (3.5-5.0) g/dL Urine Color Urine Appearance Urine pH (5.0-8.0) Ur Specific [place] (1.005-1.025) Urine Protein (NEG-TRACE) MG/DL Urine Glucose (UA) (NEG) MG/DL Urine Ketones (NEG) MG/DL Urine Blood (NEG) Urine Nitrite (NEG) Ur Leukocyte Esterase (NEG) Urine RBC (0) /HPF Urine WBC (0-4) /HPF Ur Squamous Epith Cells /LPF Urine Bacteria /LPF Urine Mucus /LPF Ethyl Alcohol mg/dL Acetone, Qual (Negative) Discharge Plan Discharge Clinical Impression: Hyperglycemia due to type 2 diabetes mellitus Patient Disposition: Home, Self-Care Instructions: Diabetic Hyperglycemia (ED) Additional Instructions: Drink plenty of fluids Increase the dose of metformin to 1000 mg twice daily Follow-up with your PCP of further management Check blood sugar daily and report to the ER/PCP with higher than 400 Beber mucho l?quido Aumentar la dosis de metformina a 1000 mg dos veces al d?a. Jonny un seguimiento con peterson PCP para el manejo adicional Controle el az?car en cesilia diariamente e informe al ER / PCP con m?s de 400 Prescriptions: No Action polyethylene glycol 3350 [Miralax] 17 gram/dose powder 238 g PO ONCE 1 Days Qty: 238 RF: 0 bisacodyl [Dulcolax (bisacodyl)] 5 mg tablet,delayed release (DR/EC) 10 mg PO ONCE 1 Days Qty: 2 RF: 0 acetaminophen [Tylenol Extra Strength] 500 mg tablet 500 mg PO Q6H PRN (Reason: pain or fever) Qty: 20 RF: 0 lidocaine [Lidoderm] 5 % adhesive patch,medicated 1 patch topical DAILY Qty: 15 RF: 0 cyclobenzaprine 5 mg tablet 5 mg PO TID PRN (Reason: muscle spasm) Qty: 14 RF: 0 levalbuterol tartrate [Xopenex HFA] 45 mcg/actuation HFA aerosol inhaler 2 puff PO Q6H RF: 0 Alvesco 80 mcg/actuation HFA aerosol inhaler 1 puff inhalation BID RF: 0 lisinopril 40 mg tablet 40 mg PO DAILY RF: 0 metoprolol succinate 50 mg tablet extended release 24 hr 50 mg PO DAILY RF: 0 metformin 500 mg tablet 500 mg PO BID RF: 0 sertraline 100 mg tablet 100 mg PO DAILY RF: 0 hydroxyzine HCl 25 mg tablet 25 mg PO BID PRN (Reason: Anxiety) RF: 0 atorvastatin 20 mg tablet 20 mg PO DAILY RF: 0 amitriptyline 50 mg tablet 50 mg PO DAILY RF: 0 omeprazole 20 mg capsule,delayed release(DR/EC) 20 mg PO DAILY RF: 0 tramadol 50 mg tablet 50 mg PO DAILY RF: 0 Interventions: ED Discharge Assessment Last Done: 11/06/21 22:28 Discharge Date/Time: 11/06/21 22:30
[2021-11-06 19:44] LABS: Basophils Percent Auto 0.1 % (0-2); Eosinophils Absolute Auto 0.4 X10*3/uL (0.0-0.4); Eosinophils Percent Auto 4.7 % (0-4); Hematocrit 39.4 % (37.0-47.0); Hemoglobin 12.5 g/dl (12.0-16.0); Imm Gran Abs Auto 0.06 X10*3/uL (0.00-0.03); Imm Gran Pct Auto 0.6 % (0.0-0.4); Lymphocytes Absolute Auto 1.8 X10*3/uL (1.2-4.9); Lymphocytes Percent Auto 19.4 % (20-40); MANUAL DIFF FLAG NO; Mean Corpuscular HGB Conc 31.7 g/dl (31.0-35.0); Mean Corpuscular Hemoglobin 24.8 pg (27.0-33.0); Mean Corpuscular Volume 78.2 fL (80.0-98.0); Monocytes Absolute Auto 0.4 X10*3/uL (0.1-1.2); Neutrophils Absolute Auto 6.6 x10*3/uL (2.0-8.3); Neutrophils Percent Auto 71.2 % (45-73); Platelet Count 234 X10*3/uL (160-400); Red Blood Count 5.04 X10*6/uL (4.20-5.50); Red Cell Distribution Width 14.3 % (11.0-16.0); White Blood Count 9.3 X10*3/uL (4.8-10.8)
[2021-11-06] MEDS: Insulin Lispro 100 UNIT/ML 3 ML VIAL 14 UNIT SUBCUT (19:46)
[2021-11-06] MEDS: 0.9 % Sodium Chloride 1,000 ML 999 ML IVCONT (19:48)
[2021-11-06 19:53] VITALS: BP 124/79; PULSE 83; RESP 16; O2SAT 96
[2021-11-06 19:58] LABS: Ethanol < 10 mg/dL
[2021-11-06 20:00] LABS: Alanine Aminotransferase 30 U/L (0-31); Albumin Level 4.1 g/dL (3.5-5.0); Alkaline Phosphatase 190 U/L (39-117); Anion Gap 15 (12-20); Aspartate Amino Transferase 29 U/L (5-31); Bilirubin Total 0.6 mg/dL (0.0-1.0); Blood Urea Nitrogen 15 mg/dL (9-16); Calcium 9.7 mg/dL (8.4-10.2); Carbon Dioxide 25 mmol/L (22-29); Chloride 102 mmol/L (96-108); Creatinine Clr Calc Pharmacy 45.9; Estimated Glomerular Filt Rate 47; Glucose Random 292 mg/dL (60-115); Magnesium 1.6 mg/dL (1.6-2.6); Potassium 4.8 mmol/L (3.3-5.1); Sodium 137 mmol/L (135-145); Total Protein 7.5 g/dL (6.5-8.0)
[2021-11-06 20:05] LABS: Appearance Urine CLEAR; Color Urine YELLOW; Glucose Urine UA >=1000 MG/DL (NEG); Leukocyte Esterase Urine NEG (NEG); Nitrite Urine NEG (NEG); Specific Gravity - Urine >= 1.030 (1.005-1.025); Urine Blood NEG (NEG); Urine Ketones NEG (NEG); Urine Protein NEG (NEG-TRACE)
[2021-11-06 20:15] LABS: Mucus Urine 1+ /LPF; RBC Urine 0-2 /HPF (0); Squamous Epithelial Cell Urine 2+ /LPF; WBC Urine 0 /HPF (0-4)
[2021-11-06 20:16] LABS: Bacteria Urine TRACE /LPF
[2021-11-06 20:40] LABS: Glucose, Whole Blood 144 mg/dL (60-115)
[2021-11-06 20:50] LABS: Acetone, serum QL Negative (Negative)
[2021-11-06 21:40] LABS: Glucose, Whole Blood 68 mg/dL (60-115)
[2021-11-06 22:09] LABS: Glucose, Whole Blood 102 mg/dL (60-115)
[2021-11-06 22:24] VITALS: BP 118/79; PULSE 99; RESP 16; TEMP 36.6; O2SAT 98
== END 2021-11-06 22:30 | disposition home or self-care (01) ==
PROVIDERS: Emergency Provider Internal Medicine
DX: E11.65 Type 2 diabetes mellitus with hyperglycemia (principal); I10 Essential (primary) hypertension
CPT/HCPCS: 36415; 80053; 81001; 82009; 82077; 82947; 83735; 84100; 85025; 96360; 99284

== ENCOUNTER 2022-02-15 14:45 | Emergency (ER) | payer MEDICAID, SELFPAY ==
[2022-02-15 15:36] VITALS: BP 113/70; PULSE 80; RESP 16; TEMP 36.3; O2SAT 97; BMI 24.2
--- NOTE | 2022-02-15 15:52 | ED_ITS ---
HPI - Skin/Abscess/Foreign Bdy General Chief complaint: Skin/Abscess/Foreign Body Stated complaint: black lump on back/painful Time Seen by Provider: 02/15/22 15:51 Source: patient Mode of arrival: ambulatory History of Present Illness HPI narrative: 55-year-old female with a past medical history of anxiety, arthritis, depression, diabetes, GERD, hypertension, presenting to the ED complaining of painful abscess to upper back x2 weeks. Reports mild clear drainage. Denies fever, chills Related Data Home Medications Medication Instructions Recorded Confirmed amitriptyline 50 mg tablet 50 mg PO DAILY 08/03/21 09/14/21 atorvastatin 20 mg tablet 20 mg PO DAILY 08/03/21 09/14/21 hydroxyzine HCl 25 mg tablet 25 mg PO BID PRN 08/03/21 09/14/21 lisinopril 40 mg tablet 40 mg PO DAILY 08/03/21 09/14/21 metformin 500 mg tablet 500 mg PO BID 08/03/21 09/14/21 metoprolol succinate 50 mg 50 mg PO DAILY 08/03/21 09/14/21 tablet,extended release 24 hr omeprazole 20 mg capsule,delayed 20 mg PO DAILY 08/03/21 09/14/21 release sertraline 100 mg tablet 100 mg PO DAILY 08/03/21 09/14/21 tramadol 50 mg tablet 50 mg PO DAILY 08/03/21 09/14/21 ciclesonide 80 mcg/actuation 1 puff INHALATION BID 09/14/21 09/14/21 aerosol inhaler (Alvesco) levalbuterol tartrate 45 2 puff PO Q6H 09/14/21 09/14/21 mcg/actuation aerosol inhaler (Xopenex HFA) Previous Rx's Medication Instructions Recorded cyclobenzaprine 5 mg tablet 5 mg PO TID PRN #14 tab 10/10/20 lidocaine 5 % topical patch 1 patch TOPICAL DAILY #15 ea 10/10/20 (Lidoderm) acetaminophen 500 mg tablet 500 mg PO Q6H PRN #20 tab 07/08/21 (Tylenol Extra Strength) bisacodyl 5 mg tablet,delayed 10 mg PO ONCE 1 Days #2 tab 11/11/21 release (Dulcolax (bisacodyl)) polyethylene glycol 3350 17 238 g PO ONCE 1 Days #238 g 11/11/21 gram/dose oral powder (Miralax) cephalexin 500 mg capsule 500 mg PO QID 7 Days #28 cap 02/15/22 sulfamethoxazole 800 1 tab PO Q12H 7 Days #14 tab 02/15/22 mg-trimethoprim 160 mg tablet (Bactrim DS) Allergies Allergy/AdvReac Type Severity Reaction Status Date / Time aspirin [Aspirin] Allergy Intermediate EYES Verified 10/24/21 16:12 SWELLING Penicillins Allergy Intermediate RASH Verified 10/24/21 16:12 citalopram Allergy Unknown chest pain Verified 10/24/21 16:12 Diltiazem HCl Allergy Unknown Unknown Uncoded 10/24/21 16:12 Review of Systems Review of Systems: Constitutional: No Fever, No Chills ENT/Mouth: No Ear Pain, No Nasal Congestion, No sore throat, No Rhinorrhea Cardiovascular: No Chest Pain, No SOB Respiratory: No Cough, No Sputum, No Wheezing Gastrointestinal: No Nausea, No Vomiting, No Abdominal pain Genitourinary: No Hematuria, No Urinary Incontinence, No Flank Pain Musculoskeletal: No joint pain, No Myalgias, No Joint Swelling Skin: + Skin Lesions, No rash Neuro: No Weakness, No Numbness Yes all other systems are reviewed and are negative [facility] Past Medical History Attestation statement: The following information was validated with the patient. Medical History Acute anxiety Arthritis Depression Diabetic acidosis, type II GERD (gastroesophageal reflux disease) HTN (hypertension) Hx of renal calculi On beta mariaelena at home Right knee injury Surgical History History of hysterectomy Hx of arthroscopy of right knee Hx of cystoscopy Social History Social History Household Members: Family Patient Tobacco Use Status: Never used Tobacco Advance Directives: No Advance Directives Information Provided: No Current occupational status: employed Physical Exam Vital Signs: Vital Signs: Last Vital Signs Temp 97.3 F 02/15/22 15:36 Pulse 80 02/15/22 15:36 Resp 16 02/15/22 15:36 BP 113/70 02/15/22 15:36 Pulse Ox 97 02/15/22 15:36 BMI result Body Mass Index 24.2 Const: General: cooperative, healthy appearing, comfortable and no acute distress Orientation/consciousness: patient oriented x3 Limitations: no limitations HEENT: Head: Yes normal to inspection Ears: hearing grossly normal bilaterally General nose exam: Normal external nose present Face and sinus: Yes normal facial exam Eyes: General: appearance normal, both eyes and all related structures EOM: EOMs intact bilaterally Neck: Neck: Yes normal visual inspection and Yes no meningeal signs Resp: Effort & Inspection: normal respiratory effort and no respiratory distress Cardio: Rate: regular rate Heart sounds: S1 normal heart sound present and S2 normal heart sound present GI: Inspection: Yes normal to inspection Palpation (GI): Soft to palpation, nontender, no guarding and not rigid Skin: Other: +fluctuant abscess to right mid/upper back overlying erythema and +ttp. No active drainage or pointing or induration Rashes: no rashes Wounds: no wounds Neuro: General: patient oriented x3 and no meningeal signs Gait exam (Neuro): Normal gait present Extrem: General: Yes normal to inspection MDM - Skin/Abscess/Foreign Bdy MDM Narrative Medical decision making narrative: 55-year-old female with a past medical history of anxiety, arthritis, depression, diabetes, GERD, hypertension, presenting to the ED complaining of painful abscess to upper back x2 weeks. on exam vital signs stable, NAD/ nontoxic, fluctuant abscess noted to right midback without pointing or active drainage. + overlying erythema Plan: I&D Medical Records Attestation: I reviewed the patient's medical records. Lab Data Attestation: I reviewed the patient's lab results. Procedures Abscess I/D Site: back Side (if applicable): right Local Anesthetic: lidocaine 1% Amount of anesthesia used (mL): 5 Technique: incised with blade Sent for culture/gram staining?: No Irrigation: Yes Packing used?: none Discharge Plan Discharge Clinical Impression: Abscess of skin or subcutaneous tissue, Cellulitis Patient Disposition: Home, Self-Care Instructions: Abscess (ED), Abscess Follow-up (ED) Additional Instructions: your abscess was drained today in the emergency department. Keflex and Bactrim are antibiotics please take as prescribed. It is normal for area to drain for the next 24-48 hours, after that if it con tinues to drain, if it recollects, increasingly painful or you develop fever please return to the emergency department peterson absceso fue drenado klever en el departamento de emergencias. Los antibi?ticos Keflex y Bactrim deben tomarse seg?n lo prescrito. Es normal que el ?shiloh drene ema las pr?ximas 24 a 48 horas, despu?s de eso, si contin?a drenando, si se acumula, si aumenta el dolor o si tiene fiebre, regrese al departamento de emergencias. Prescriptions: New sulfamethoxazole-trimethoprim [Bactrim DS] 800-160 mg tablet 1 tab PO Q12H 7 Days Qty: 14 0RF cephalexin 500 mg capsule 500 mg PO QID 7 Days Qty: 28 0RF No Action bisacodyl [Dulcolax (bisacodyl)] 5 mg tablet,delayed release (DR/EC) 10 mg PO ONCE 1 Days Qty: 2 0RF Rx Instructions: Take 2 tablets by mouth at 12:00pm the day before your procedure. polyethylene glycol 3350 [Miralax] 17 gram/dose powder 238 g PO ONCE 1 Days Qty: 238 0RF Rx Instructions: Take as directed by mouth the day before your procedure. acetaminophen [Tylenol Extra Strength] 500 mg tablet 500 mg PO Q6H PRN (Reason: pain or fever) Qty: 20 0RF lidocaine [Lidoderm] 5 % adhesive patch,medicated 1 patch topical DAILY Qty: 15 0RF Rx Instructions: leave on most painful area for up to 12 hrs cyclobenzaprine 5 mg tablet 5 mg PO TID PRN (Reason: muscle spasm) Qty: 14 0RF levalbuterol tartrate [Xopenex HFA] 45 mcg/actuation HFA aerosol inhaler 2 puff PO Q6H 0RF Alvesco 80 mcg/actuation HFA aerosol inhaler 1 puff inhalation BID 0RF lisinopril 40 mg tablet 40 mg PO DAILY 0RF metoprolol succinate 50 mg tablet extended release 24 hr 50 mg PO DAILY 0RF metformin 500 mg tablet 500 mg PO BID 0RF sertraline 100 mg tablet 100 mg PO DAILY 0RF hydroxyzine HCl 25 mg tablet 25 mg PO BID PRN (Reason: Anxiety) 0RF atorvastatin 20 mg tablet 20 mg PO DAILY 0RF amitriptyline 50 mg tablet 50 mg PO DAILY 0RF omeprazole 20 mg capsule,delayed release(DR/EC) 20 mg PO DAILY 0RF tramadol 50 mg tablet 50 mg PO DAILY 0RF Referrals: Elsa Espitia MD [Primary Care Provider] - 3 days (for re-evaluation)
[2022-02-15] MEDS: Lidocaine HCl 1 % MPF 5 ML VIAL SUBCUT (16:47)
== END 2022-02-15 16:54 | disposition home or self-care (01) ==
PROVIDERS: Emergency Provider Emergency Medicine; PCP Family Medicine
DX: L02.212 Cutaneous abscess of back [any part, except buttock and flank] (principal); M54.50 Low back pain, unspecified; Z79.899 Other long term (current) drug therapy
CPT/HCPCS: 10060; 99283; 99284

== ENCOUNTER 2022-03-17 15:01 | Inpatient (IN) | payer MEDICAID, SELFPAY ==
[2022-03-17] VITALS (8 sets, daily range): BP systolic 101–111; BP diastolic 68–73; PULSE 83–109; RESP 16–20; TEMP 36.3–36.8; O2SAT 88–96; BMI 26.5
--- NOTE | 2022-03-17 | ECG_ITS ---
Test Reason : SOB Blood Pressure : / mmHG Vent. Rate : 088 BPM Atrial Rate : 088 BPM P-R Int : 164 ms QRS Dur : 082 ms QT Int : 392 ms P-R-T Axes : 046 -07 056 degrees QTc Int : 474 ms Normal sinus rhythm Normal ECG When compared with ECG of 10-JUL-2019 21:50, No significant change was found Referred By: Generic ED Physician Electronically Signed By:RICHELLE MALDONADO MD
--- NOTE | ~2022-03-17 | XR_ITS ---
EXAMINATION: XR CHEST CLINICAL INFORMATION: Lateral view COMPARISON: Chest x-ray same day earlier frontal TECHNIQUE: Lateral view of the chest was obtained. FINDINGS: Blunting of posterior costophrenic angles suggesting small pleural effusions. Questionable mild infiltrates/atelectasis at lung bases, spondylosis of dorsal spine. XR/XR chest 1V IMPRESSION: Lateral view confirms small pleural effusion obscuring costophrenic angles, probably mild infiltrate/atelectasis at lung base posteriorly.
--- NOTE | ~2022-03-17 | XR_ITS ---
EXAMINATION: XR CHEST CLINICAL INFORMATION: Asthma. COMPARISON: Chest done on 10/10/2020. TECHNIQUE: Frontal view of the chest was obtained. FINDINGS: Bibasilar linear airspace disease is noted, likely represent hypoventilatory, atelectatic changes. Minimal blunting of both lateral CP angle is noted, may represent trace effusion, thickening or combination thereof, new since prior study. The heart size is within normal limits. The visualized upper abdomen is unremarkable. XR/XR chest 1V IMPRESSION: Bibasilar linear airspace disease and bilateral likely trace pleural effusion and/or thickening or combination thereof, new since 10/10/2020.
[2022-03-17] MEDS: predniSONE 20 MG TABLET 40 MG PO (17:16)
[2022-03-17] MEDS: Benzonatate 100 MG CAPSULE 200 MG PO (17:16)
[2022-03-17] MEDS: Albuterol/Iprat 2.5/0.5MG 3 ML AMPUL.NEB INHALE ×2 (17:28→20:18)
[2022-03-17] MEDS: HYDROcodone/Homat 5/1.5/5 ML 5 ML SYRUP PO (17:46)
[2022-03-17 17:53] LABS: Strep A Nucleic Acid Negative (Negative)
[2022-03-17 18:01] LABS: Influenza A Negative (Negative); Influenza B2 Negative (Negative)
[2022-03-17 18:01] LABS: COVID-19 Test Negative (Negative); IDNOW Serial# 16C4AD1C
[2022-03-17 18:14] LABS: MANUAL DIFF FLAG NO
[2022-03-17 18:17] LABS: Basophils Percent Auto 0.1 % (0-2); Eosinophils Absolute Auto 0.4 X10*3/uL (0.0-0.4); Eosinophils Percent Auto 3.8 % (0-4); Hematocrit 40.9 % (37.0-47.0); Hemoglobin 12.7 g/dl (12.0-16.0); Imm Gran Abs Auto 0.04 X10*3/uL (0.00-0.03); Imm Gran Pct Auto 0.4 % (0.0-0.4); Lymphocytes Absolute Auto 2.2 X10*3/uL (1.2-4.9); Lymphocytes Percent Auto 21.5 % (20-40); Mean Corpuscular HGB Conc 31.1 g/dl (31.0-35.0); Mean Corpuscular Hemoglobin 24.3 pg (27.0-33.0); Mean Corpuscular Volume 78.4 fL (80.0-98.0); Mean Platelet Volume 10.1 fL (9.4-12.3); Monocytes Absolute Auto 0.5 X10*3/uL (0.1-1.2); Monocytes Percent Auto 5.3 % (2-11); Neutrophils Percent Auto 68.9 % (45-73); Platelet Count 238 X10*3/uL (160-400); Red Blood Count 5.22 X10*6/uL (4.20-5.50); Red Cell Distribution Width 15.6 % (11.0-16.0); White Blood Count 10.1 X10*3/uL (4.8-10.8)
[2022-03-17] MEDS: Albuterol Sulfate (0.083%) 2.5 MG/3 ML VIAL.NEB INHALE (18:20)
--- NOTE | 2022-03-17 18:26 | ED.ASTHMA ---
HPI - Asthma General Chief Complaint: Asthma <TIFF Moncada - Last Filed: 03/17/22 19:10> Stated Complaint: Asthma <TIFF Moncada Last Filed: 03/17/22 19:10> Time Seen by Provider: 03/17/22 16:42 <TIFF Moncada Last Filed: 03/17/22 19:10> Source: patient <TIFF Moncada Last Filed: 03/17/22 19:10> Mode of arrival: ambulatory <TIFF Moncada Last Filed: 03/17/22 19:10> History of Present Illness HPI Narrative: 56-year-old female with a past medical history anxiety, arthritis, asthma, depression, diabetes, GERD, hypertension, presenting to the ED complaining of asthma exacerbation with dry cough, SOB, and chest discomfort when coughing x1 week. Use albuterol today without relief. Denies fever, chills, pedal edema, calf pain, recent travel, sick contacts, history of blood clots <TIFF Moncada Last Filed: 03/17/22 19:10> MD complaint: asthma attack and shortness of breath <TIFF Moncada Last Filed: 03/17/22 19:10> Onset (ago): week(s) <TIFF Moncada Last Filed: 03/17/22 19:10> Related Data Home Medications: Home Medications Medication Instructions Recorded Confirmed amitriptyline 50 mg tablet 50 mg PO DAILY 08/03/21 03/17/22 lisinopril 40 mg tablet 40 mg PO DAILY 08/03/21 03/17/22 omeprazole 20 mg capsule,delayed 20 mg PO DAILY 08/03/21 03/17/22 release sertraline 100 mg tablet 100 mg PO DAILY 08/03/21 03/17/22 tramadol 50 mg tablet 50 mg PO DAILY 08/03/21 03/17/22 levalbuterol tartrate 45 2 puff PO Q6H 09/14/21 03/17/22 mcg/actuation aerosol inhaler (Xopenex HFA) clonidine HCl 0.1 mg tablet 1 tab PO BEDTIME 03/17/22 03/17/22 cyanocobalamin (vitamin B-12) 1 tab PO DAILY 03/17/22 03/17/22 1,000 mcg tablet dapagliflozin 10 mg tablet 1 tab PO DAILY 03/17/22 03/17/22 (Farxiga) ergocalciferol (vitamin D2) 1,250 1 cap PO OWENS 03/17/22 03/17/22 mcg (50,000 unit) capsule ferrous sulfate 325 mg (65 mg 1 tab PO BID 03/17/22 03/17/22 iron) tablet (FeroSul) hydroxyzine pamoate 50 mg capsule 1 cap PO BEDTIME 03/17/22 03/17/22 metformin 500 mg tablet,extended 1 tab PO BID 03/17/22 03/17/22 release 24 hr metoprolol tartrate 50 mg tablet 1 tab PO BID 03/17/22 03/17/22 Previous Rx's Medication Instructions Recorded albuterol sulfate 2.5 mg/0.5 mL 5 mg INHALATION Q4H PRN #30 ea 03/17/22 solution for nebulization albuterol sulfate 90 mcg/actuation 2 puff INHALATION Q4-6H PRN #6.7 g 03/17/22 aerosol inhaler benzonatate 200 mg capsule 200 mg PO TID PRN #16 cap 03/17/22 fluticasone propionate 50 2 spray INTRANASAL DAILY #16 g 03/17/22 mcg/actuation nasal spray,suspension (Flonase Allergy Relief) prednisone 20 mg tablet 40 mg PO DAILY 5 Days #10 tab 03/17/22 <TIFF Moncada - Last Filed: 03/17/22 19:10> Allergies/Adverse Reactions: Allergies Allergy/AdvReac Type Severity Reaction Status Date / Time aspirin [Aspirin] Allergy Intermediate EYES Verified 03/17/22 16:02 SWELLING Penicillins Allergy Intermediate RASH Verified 03/17/22 16:02 citalopram Allergy Unknown chest pain Verified 03/17/22 16:02 Diltiazem HCl Allergy Unknown Unknown Uncoded 03/17/22 16:02 <TIFF Moncada - Last Filed: 03/17/22 19:10> Review of Systems Review of Systems: Constitutional: No Fever, No Chills, No Fatigue, No Malaise ENT/Mouth: No Ear Pain, No Nasal Congestion, No Sinus Pain, No Hoarseness, No sore throat, No Rhinorrhea, No Swallowing Difficulty Eyes: No Eye Pain, No Swelling, No Redness Cardiovascular: + Chest discomfort when coughing, + SOB, No Dyspnea on Exertion, No Orthopnea, No Edema, No Palpitations Respiratory: + Cough, No Sputum, + Wheezing, No Smoke Exposure, No Dyspnea Gastrointestinal: No Nausea, No Vomiting, No Diarrhea, No Constipation, No Abdominal pain Genitourinary: No Dysuria, No Urinary Frequency, No Urinary Flow Changes Musculoskeletal: No joint pain, No Myalgias, No Joint Swelling Skin: No Skin Lesions, No rash Neuro: No Weakness, No Loss of Consciousness, No Dizziness, No Headache <TIFF Moncada - Last Filed: 03/17/22 19:10> Yes all other systems are reviewed and are negative <TIFF Moncada - Last Filed: 03/17/22 19:10> [facility] Past Medical History Attestation statement: The following information was validated with the patient. <TIFF Moncada - Last Filed: 03/17/22 19:10> Medical History: Medical History Acute anxiety Arthritis Asthma Depression Diabetic acidosis, type II GERD (gastroesophageal reflux disease) HTN (hypertension) Hx of renal calculi On beta mariaelena at home Right knee injury <TIFF Moncada - Last Filed: 03/17/22 19:10> Surgical History: Surgical History History of hysterectomy Hx of arthroscopy of right knee Hx of cystoscopy <TIFF Moncada - Last Filed: 03/17/22 19:10> Social History Social History: Social History Household Members: Family Patient Tobacco Use Status: Never used Tobacco Advance Directives: No Advance Directives Information Provided: No Current occupational status: employed <TIFF Moncada - Last Filed: 03/17/22 19:10> Physical Exam Vital Signs: Vital Signs: Last Vital Signs Temp 98.2 F 03/17/22 21:19 Pulse 102 H 03/17/22 21:48 Resp 18 03/17/22 21:48 BP 103/69 03/17/22 21:19 Pulse Ox 88 L 04/22/22 21:48 BMI result Body Mass Index 26.5 <TIFF Moncada - Last Filed: 03/17/22 19:10> Vital Signs: Last Vital Signs Temp 98.2 F 03/17/22 21:19 Pulse 102 H 03/17/22 21:48 Resp 18 03/17/22 21:48 BP 103/69 03/17/22 21:19 Pulse Ox 88 L 03/17/22 21:48 BMI result Body Mass Index 26.5 <Gabriel Falcon PA - Last Filed: 03/17/22 22:38> Const: General: cooperative, healthy appearing and no acute distress <TIFF Moncada - Last Filed: 03/17/22 19:10> Orientation/consciousness: patient oriented x3 <TIFF Moncada - Last Filed: 03/17/22 19:10> Limitations: no limitations <TIFF Moncada - Last Filed: 03/17/22 19:10> HEENT: Head: Yes normal to inspection and Yes atraumatic <TIFF Moncada - Last Filed: 03/17/22 19:10> Ears: hearing grossly normal bilaterally <TIFF Moncada - Last Filed: 03/17/22 19:10> General nose exam: Normal external nose present <TIFF Moncada - Last Filed: 03/17/22 19:10> Face and sinus: Yes normal facial exam <TIFF Moncada - Last Filed: 03/17/22 19:10> Eyes: General: appearance normal, both eyes and all related structures <TIFF Moncada - Last Filed: 03/17/22 19:10> EOM: EOMs intact bilaterally <TIFF Moncada - Last Filed: 03/17/22 19:10> Neck: Neck: Yes normal visual inspection and Yes no meningeal signs <TIFF Moncada - Last Filed: 03/17/22 19:10> Resp: Other: Coarse lung sounds bibasilarly. Talking in complete sentences <TIFF Moncada - Last Filed: 03/17/22 19:10> Effort & Inspection: normal respiratory effort, no pursed lip breathing, no respiratory distress, no stridor, not tachypneic and no tripod positioning <TIFF Moncada - Last Filed: 03/17/22 19:10> Auscultation: wheezes expiratory wheezes and lower bilaterally <Alayna Chambers PA - Last Filed: 03/17/22 19:10> Cardio: Rate: regular rate <Alayna Chambers PA - Last Filed: 03/17/22 19:10> Heart sounds: S1 normal heart sound present and S2 normal heart sound present <Alayna Chambers PA - Last Filed: 03/17/22 19:10> GI: Inspection: Yes normal to inspection <TIFF Moncada - Last Filed: 03/17/22 19:10> Palpation (GI): Soft to palpation, nontender, no guarding and not rigid <Alayna Chambers PA - Last Filed: 03/17/22 19:10> Skin: Rashes: no rashes <Alayna Chambers PA - Last Filed: 03/17/22 19:10> Wounds: no wounds <Alayna Chambers PA - Last Filed: 03/17/22 19:10> Neuro: General: patient oriented x3, tone normal and no meningeal signs <Alayna Chambers PA - Last Filed: 03/17/22 19:10> Gait exam (Neuro): Normal gait present <Alayna Chambers PA - Last Filed: 03/17/22 19:10> Extrem: General: Yes normal to inspection, Yes no pedal edema and Yes no calf tenderness <Alayna Chambers PA - Last Filed: 03/17/22 19:10> Course Course Course Narrative: -COVID-19 negative, influenza negative, rapid strep negative XR chest 1V IMPRESSION: Bibasilar linear airspace disease and bilateral likely trace pleural effusion and/or thickening or combination thereof, new since 10/10/2020. - 1820-on re-evaluation patient reports symptomatic improvement, lungs CTA. Due to CXR findings we will obtain two view CXR and labs -no leukocytosis. BUN/creatinine with slight elevation, encouraged p.o. fluids. BNP WNL -1900--ED care transferred to night team pending chest x-ray and anticipated DC home <TIFF Moncada Last Filed: 03/17/22 19:10> Reevaluation(s) Reevaluation #1: Patient breath sounds diminished bilaterally, she is saturating 91% on at this time I asked nurse to start an IV and administer magnesium, chest x-ray is concerning for a possible pneumonia for this reason patient will be given doxycycline 100 mg p.o. I will also order of an additional DuoNeb for this patient. If patient does not improve after this DuoNeb it is likely that she will require hospital admission <TIFF Cherry - Last Filed: 03/17/22 22:38> Time: 20:07 <TIFF Cherry - Last Filed: 03/17/22 22:38> Reevaluation #2: I re-evaluated patient still has diminished breath sounds, saturating 88% on room air. Placed on 2 L. At this time patient will be admitted to the hospitalist team for acute asthma exacerbation and pneumonia to <TIFF Cherry - Last Filed: 03/17/22 22:38> Time: 22:38 <TIFF Cherry Last Filed: 03/17/22 22:38> MDM - Asthma MDM Narrative Medical decision making narrative: 56-year-old female with a past medical history anxiety, arthritis, asthma, depression, diabetes, GERD, hypertension, presenting to the ED complaining of asthma exacerbation with dry cough, SOB, and chest discomfort when coughing x1 week. On exam vital signs stable, NAD, bibasilar coarse lung sounds/expiratory wheeze noted. No pedal edema or calf tenderness. Concern for asthma exacerbation vs viral illness vs bronchitis. Rule out pneumonia. Symptoms atypical for ACS/PE Plan: COVID-19/influenza testing, rapid strep, CXR, DuoNeb, p.o. prednisone <TIFF Moncada Last Filed: 03/17/22 19:10> Differential Diagnosis Differential diagnosis: Likely Acute exacerbation and Pneumonia <TIFF Moncada Last Filed: 03/17/22 19:10> Medical Records Attestation: I reviewed the patient's medical records. <TIFF Moncada Last Filed: 03/17/22 19:10> Lab Data Attestation: I reviewed the patient's lab results. <TIFF Moncada - Last Filed: 03/17/22 19:10> Result diagrams: : 03/17/22 18:11 03/17/22 18:11 <TIFF Moncada - Last Filed: 03/17/22 19:10> Labs: Lab Results 03/17/22 03/17/22 03/17/22 Range/Units 17:18 17:19 17:20 WBC (4.8-10.8) X10*3/uL RBC (4.20-5.50) X10*6/uL Hgb (12.0-16.0) g/dl Hct (37.0-47.0) % MCV (80.0-98.0) fL MCH (27.0-33.0) pg MCHC (31.0-35.0) g/dl RDW (11.0-16.0) % Plt Count (160-400) X10*3/uL MPV (9.4-12.3) fL Immature Gran % (Auto) (0.0-0.4) % Neut % (Auto) (45-73) % Lymph % (Auto) (20-40) % Chambers % (Auto) (2-11) % Eos % (Auto) (0-4) % Baso % (Auto) (0-2) % Lymph # (Auto) (1.2-4.9) X10*3/uL Chambers # (Auto) (0.1-1.2) X10*3/uL Eos # (Auto) (0.0-0.4) X10*3/uL Baso # (Auto) (0.0-0.2) X10*3/uL Abs Immat Gran (auto) (0.00-0.03) X10*3/uL Absolute Neuts (auto) (2.0-8.3) x10*3/uL Absolute Nucleated RBC (0.0-0.012) X10*3/uL Nucleated RBC % (auto) (0.0-0.2) /100WBC Sodium (135-145) mmol/L Potassium (3.3-5.1) mmol/L Chloride (96-108) mmol/L Carbon Dioxide (22-29) mmol/L Anion Gap (12-20) BUN (9-16) mg/dL Creatinine (0.5-1.4) mg/dL Estim Creat Clear Calc Estimated GFR Random Glucose (60-115) mg/dL Calcium (8.4-10.2) mg/dL Total Bilirubin (0.0-1.0) mg/dL Direct Bilirubin (0.0-0.5) mg/dL AST (5-31) U/L ALT (0-31) U/L Alkaline Phosphatase (39-117) U/L B-Natriuretic Peptide (<100) pg/mL Total Protein (6.5-8.0) g/dL Albumin (3.5-5.0) g/dL COVID-19 ([facility]CA) Negative (Negative) COVID-19 Clin Com See Note Influenza Type A (LILY) Negative (Negative) Influenza Type B (LILY) Negative (Negative) Influenza A & B Note See Note S. pyogenes GrpA LILY Negative (Negative) 03/17/22 03/17/22 03/17/22 Range/Units 18:11 18:11 18:11 WBC 10.1 (4.8-10.8) X10*3/uL RBC 5.22 (4.20-5.50) X10*6/uL Hgb 12.7 (12.0-16.0) g/dl Hct 40.9 (37.0-47.0) % MCV 78.4 L (80.0-98.0) fL MCH 24.3 L (27.0-33.0) pg MCHC 31.1 (31.0-35.0) g/dl RDW 15.6 (11.0-16.0) % Plt Count 238 (160-400) X10*3/uL MPV 10.1 (9.4-12.3) fL Immature Gran % (Auto) 0.4 (0.0-0.4) % Neut % (Auto) 68.9 (45-73) % Lymph % (Auto) 21.5 (20-40) % Chambers % (Auto) 5.3 (2-11) % Eos % (Auto) 3.8 (0-4) % Baso % (Auto) 0.1 (0-2) % Lymph # (Auto) 2.2 (1.2-4.9) X10*3/uL Chambers # (Auto) 0.5 (0.1-1.2) X10*3/uL Eos # (Auto) 0.4 (0.0-0.4) X10*3/uL Baso # (Auto) 0.0 (0.0-0.2) X10*3/uL Abs Immat Gran (auto) 0.04 H (0.00-0.03) X10*3/uL Absolute Neuts (auto) 7.0 (2.0-8.3) x10*3/uL Absolute Nucleated RBC 0.000 (0.0-0.012) X10*3/uL Nucleated RBC % (auto) 0.0 (0.0-0.2) /100WBC Sodium 136 (135-145) mmol/L Potassium 4.7 (3.3-5.1) mmol/L Chloride 104 (96-108) mmol/L Carbon Dioxide 25 (22-29) mmol/L Anion Gap 12 (12-20) BUN 21 H (9-16) mg/dL Creatinine 1.47 H (0.5-1.4) mg/dL Estim Creat Clear Calc 38.4 Estimated GFR 37 Random Glucose 270 H (60-115) mg/dL Calcium 9.7 (8.4-10.2) mg/dL Total Bilirubin 0.5 (0.0-1.0) mg/dL Direct Bilirubin 0.3 (0.0-0.5) mg/dL AST 19 (5-31) U/L ALT 26 (0-31) U/L Alkaline Phosphatase 162 H (39-117) U/L B-Natriuretic Peptide < 10 (<100) pg/mL Total Protein 7.6 (6.5-8.0) g/dL Albumin 3.9 (3.5-5.0) g/dL COVID-19 ([facility]CA) (Negative) COVID-19 Clin Com Influenza Type A (LILY) (Negative) Influenza Type B (LILY) (Negative) Influenza A & B Note S. pyogenes GrpA LILY (Negative) <TIFF Moncada - Last Filed: 03/17/22 19:10> Lab Results 03/17/22 03/17/22 03/17/22 Range/Units 17:18 17:19 17:20 WBC (4.8-10.8) X10*3/uL RBC (4.20-5.50) X10*6/uL Hgb (12.0-16.0) g/dl Hct (37.0-47.0) % MCV (80.0-98.0) fL MCH (27.0-33.0) pg MCHC (31.0-35.0) g/dl RDW (11.0-16.0) % Plt Count (160-400) X10*3/uL MPV (9.4-12.3) fL Immature Gran % (Auto) (0.0-0.4) % Neut % (Auto) (45-73) % Lymph % (Auto) (20-40) % Chambers % (Auto) (2-11) % Eos % (Auto) (0-4) % Baso % (Auto) (0-2) % Lymph # (Auto) (1.2-4.9) X10*3/uL Chambers # (Auto) (0.1-1.2) X10*3/uL Eos # (Auto) (0.0-0.4) X10*3/uL Baso # (Auto) (0.0-0.2) X10*3/uL Abs Immat Gran (auto) (0.00-0.03) X10*3/uL Absolute Neuts (auto) (2.0-8.3) x10*3/uL Absolute Nucleated RBC (0.0-0.012) X10*3/uL Nucleated RBC % (auto) (0.0-0.2) /100WBC Sodium (135-145) mmol/L Potassium (3.3-5.1) mmol/L Chloride (96-108) mmol/L Carbon Dioxide (22-29) mmol/L Anion Gap (12-20) BUN (9-16) mg/dL Creatinine (0.5-1.4) mg/dL Estim Creat Clear Calc Estimated GFR Random Glucose (60-115) mg/dL Calcium (8.4-10.2) mg/dL Total Bilirubin (0.0-1.0) mg/dL Direct Bilirubin (0.0-0.5) mg/dL AST (5-31) U/L ALT (0-31) U/L Alkaline Phosphatase (39-117) U/L B-Natriuretic Peptide (<100) pg/mL Total Protein (6.5-8.0) g/dL Albumin (3.5-5.0) g/dL COVID-19 ([facility]) Negative (Negative) COVID-19 Clin Com See Note Influenza Type A (LILY) Negative (Negative) Influenza Type B (LILY) Negative (Negative) Influenza A & B Note See Note S. pyogenes GrpA LILY Negative (Negative) 03/17/22 03/17/22 03/17/22 Range/Units 18:11 18:11 18:11 WBC 10.1 (4.8-10.8) X10*3/uL RBC 5.22 (4.20-5.50) X10*6/uL Hgb 12.7 (12.0-16.0) g/dl Hct 40.9 (37.0-47.0) % MCV 78.4 L (80.0-98.0) fL MCH 24.3 L (27.0-33.0) pg MCHC 31.1 (31.0-35.0) g/dl RDW 15.6 (11.0-16.0) % Plt Count 238 (160-400) X10*3/uL MPV 10.1 (9.4-12.3) fL Immature Gran % (Auto) 0.4 (0.0-0.4) % Neut % (Auto) 68.9 (45-73) % Lymph % (Auto) 21.5 (20-40) % Chambers % (Auto) 5.3 (2-11) % Eos % (Auto) 3.8 (0-4) % Baso % (Auto) 0.1 (0-2) % Lymph # (Auto) 2.2 (1.2-4.9) X10*3/uL Chambers # (Auto) 0.5 (0.1-1.2) X10*3/uL Eos # (Auto) 0.4 (0.0-0.4) X10*3/uL Baso # (Auto) 0.0 (0.0-0.2) X10*3/uL Abs Immat Gran (auto) 0.04 H (0.00-0.03) X10*3/uL Absolute Neuts (auto) 7.0 (2.0-8.3) x10*3/uL Absolute Nucleated RBC 0.000 (0.0-0.012) X10*3/uL Nucleated RBC % (auto) 0.0 (0.0-0.2) /100WBC Sodium 136 (135-145) mmol/L Potassium 4.7 (3.3-5.1) mmol/L Chloride 104 (96-108) mmol/L Carbon Dioxide 25 (22-29) mmol/L Anion Gap 12 (12-20) BUN 21 H (9-16) mg/dL Creatinine 1.47 H (0.5-1.4) mg/dL Estim Creat Clear Calc 38.4 Estimated GFR 37 Random Glucose 270 H (60-115) mg/dL Calcium 9.7 (8.4-10.2) mg/dL Total Bilirubin 0.5 (0.0-1.0) mg/dL Direct Bilirubin 0.3 (0.0-0.5) mg/dL AST 19 (5-31) U/L ALT 26 (0-31) U/L Alkaline Phosphatase 162 H (39-117) U/L B-Natriuretic Peptide < 10 (<100) pg/mL Total Protein 7.6 (6.5-8.0) g/dL Albumin 3.9 (3.5-5.0) g/dL COVID-19 ([facility]) (Negative) COVID-19 Clin Com Influenza Type A (LILY) (Negative) Influenza Type B (LILY) (Negative) Influenza A & B Note S. pyogenes GrpA LILY (Negative) <TIFF Cherry - Last Filed: 03/17/22 22:38> Critical Care Time Critical Care Time Critical Care Time: No <TIFF Cherry - Last Filed: 03/17/22 22:38> Discharge Plan Discharge Clinical Impression: Asthma with acute exacerbation, Pneumonia <TIFF Moncada - Last Filed: 03/17/22 19:10> Patient Disposition: Admitted As Inpatient <TIFF Moncada - Last Filed: 03/17/22 19:10> Instructions: Asthma (DC) <TIFF Moncada - Last Filed: 03/17/22 19:10> Additional Instructions: Your blood work does show some evidence of dehydration, encourage p.o. fluids Your chest x-ray showed a small amount of fluid in her lower lungs. Your blood work was reassuring. You need to follow-up with her primary care doctor Use albuterol inhaler and nebulizer machine at home. Flonase as a nasal decongestion, use as needed. In addition prednisone as an oral steroid. Test on Prozac for cough. If symptoms persist or worsen, constant worsening shortness of breath, chest pain, or fever please return to the ED Owens an?lisis de cesilia muestra alguna evidencia de deshidrataci?n, anime a p.o. fluidos Owens radiograf?a de t?rax mostr? vanessa serenity?a cantidad de l?quido en la parte inferior de scout pulmones. Owens an?lisis de cesilia fue tranquilizador. Debe hacer un seguimiento con owens m?dico de atenci?n primaria. Use el inhalador de albuterol y la m?quina nebulizadora en casa. Flonase erich descongestionante nasal, util?celo seg?n sea necesario. Adem?s prednisona erich esteroide oral. Prueba de Prozac para la tos. Si los s?ntomas persisten o empeoran, dificultad para respirar que empeora constantemente, dolor en el pecho o fiebre, regrese al servicio de urgencias. <TIFF Moncada - Last Filed: 03/17/22 19:10> Prescriptions: New prednisone 20 mg tablet 40 mg PO DAILY 5 Days Qty: 10 0RF albuterol sulfate 90 mcg/actuation HFA aerosol inhaler 2 puff inhalation Q4-6H PRN (Reason: shortness of breath or wheezing) Qty: 6.7 0RF fluticasone propionate [Flonase Allergy Relief] 50 mcg/actuation spray,suspension 2 spray intranasal DAILY Qty: 16 0RF Rx Instructions: administer into each nostril albuterol sulfate 2.5 mg/0.5 mL solution for nebulization 5 mg inhalation Q4H PRN (Reason: shortness of breath or wheezing) Qty: 30 0RF benzonatate 200 mg capsule 200 mg PO TID PRN (Reason: cough) Qty: 16 0RF No Action levalbuterol tartrate [Xopenex HFA] 45 mcg/actuation HFA aerosol inhaler 2 puff PO Q6H 0RF clonidine HCl 0.1 mg tablet 1 tab PO BEDTIME 0RF cyanocobalamin (vitamin B-12) 1,000 mcg tablet 1 tab PO DAILY 0RF hydroxyzine pamoate 50 mg capsule 1 cap PO BEDTIME 0RF ferrous sulfate [FeroSul] 325 mg (65 mg iron) tablet 1 tab PO BID 0RF metoprolol tartrate 50 mg tablet 1 tab PO BID 0RF ergocalciferol (vitamin D2) 1,250 mcg (50,000 unit) capsule 1 cap PO OWENS 0RF metformin 500 mg tablet extended release 24 hr 1 tab PO BID 0RF Farxiga 10 mg tablet 1 tab PO DAILY 0RF lisinopril 40 mg tablet 40 mg PO DAILY 0RF sertraline 100 mg tablet 100 mg PO DAILY 0RF amitriptyline 50 mg tablet 50 mg PO DAILY 0RF omeprazole 20 mg capsule,delayed release(DR/EC) 20 mg PO DAILY 0RF tramadol 50 mg tablet 50 mg PO DAILY 0RF <TIFF Moncada - Last Filed: 03/17/22 19:10> Referrals: Elsa Espitia MD [Primary Care Provider] - 2 days <TIFF Moncada - Last Filed: 03/17/22 19:10> Print Language: Georgian <TIFF Moncada - Last Filed: 03/17/22 19:10>
[2022-03-17 18:35] LABS: Alanine Aminotransferase 26 U/L (0-31); Albumin Level 3.9 g/dL (3.5-5.0); Alkaline Phosphatase 162 U/L (39-117); Anion Gap 12 (12-20); Aspartate Amino Transferase 19 U/L (5-31); Bilirubin Direct 0.3 mg/dL (0.0-0.5); Bilirubin Total 0.5 mg/dL (0.0-1.0); Blood Urea Nitrogen 21 mg/dL (9-16); Calcium 9.7 mg/dL (8.4-10.2); Carbon Dioxide 25 mmol/L (22-29); Chloride 104 mmol/L (96-108); Creatinine Clr Calc Pharmacy 38.4; Estimated Glomerular Filt Rate 37; Glucose Random 270 mg/dL (60-115); Potassium 4.7 mmol/L (3.3-5.1); Sodium 136 mmol/L (135-145); Total Protein 7.6 g/dL (6.5-8.0)
[2022-03-17 18:36] LABS: B Type Natriuretic Peptide < 10 pg/mL (<100)
[2022-03-17] MEDS: Magnesium Sulfate/H2O 2 GM/50 ML PIGGYBACK IV (20:28)
--- NOTE | 2022-03-17 21:49 | PHA.MEDREC ---
Pharmacy Consult ? Medication Reconciliation Pharmacy has completed the medication reconciliation. No remarkable issues. Marichuy Adorno, KinD
[2022-03-17] MEDS: methylPREDNISolone Sod Succ 40 MG/ML VIAL IVPUSH (23:57)
[2022-03-17] MEDS: cefTRIAXone sodium 1 GM in 0.9 % Sodium Chloride 50 ML IV (23:57)
[2022-03-17] MEDS: Heparin Sodium,Porcine 5,000 UNIT/ML VIAL 5000 UNIT SUBCUT (23:57)
[2022-03-18] VITALS (10 sets, daily range): BP systolic 112–123; BP diastolic 67–82; PULSE 88–108; RESP 16–26; TEMP 36.1–37.3; O2SAT 93–96; BMI 23.1
--- NOTE | 2022-03-18 | ECG_ITS ---
Test Reason : cp Blood Pressure : / mmHG Vent. Rate : 098 BPM Atrial Rate : 098 BPM P-R Int : 184 ms QRS Dur : 084 ms QT Int : 384 ms P-R-T Axes : 047 -05 064 degrees QTc Int : 490 ms Normal sinus rhythm Prolonged QT Abnormal ECG When compared with ECG of 17-MAR-2022 16:00, No significant change was found Referred By: Federico Andres Electronically Signed By:CECI FINNEY
[2022-03-18] MEDS: Azithromycin 500 MG in 0.9 % Sodium Chloride 250 ML 125 MG IV ×2 (00:40→23:44)
[2022-03-18] MEDS: Acetaminophen 325 MG TABLET 650 MG PO ×3 (00:43→15:18)
--- NOTE | 2022-03-18 01:00 | PC.NURSE ---
Addendum entered by Lashonda Messer 03/18/22 01:01: REPORT GIVEN TO ULI DENNIS Original Note: PT MOVED TO ROOM 21. REPORT GIVEN TO BARNEY DENNIS.
--- NOTE | 2022-03-18 05:03 | P.HPHOSP_ITS ---
History of Present Illness Date of Service: 03/17/22 Chief Complaint: Shortness of breath This is a 56-year-old female with past medical history of diabetes, hypertension, asthma, anxiety and depression, presents the hospital with complaints of shortness of breath for the past 1 week. Patient reports cough, some sputum production, no fever some chills, no chest pain, no abdominal pain, no nausea or vomiting, no diarrhea constipation, no urinary symptoms. She reports that she has been trying to use her rescue inhaler with no relief. On arrival to the ED patient noted to have a slight tachycardia, as well as hypoxic 88% on room air Labs are reviewed showed a creatinine of 1.47 from a baseline of around 1.2, COVID-19 and influenza negative Patient given multiple rounds of breathing treatment as well as IV Solu-Medrol, and magnesium with minimal relief of her symptoms, chest x-ray also showed infiltrate suspicious for pneumonia. Patient will be admitted for further management Review of Systems Review of Systems: Yes all other systems are reviewed and are negative [facility] Medical History Acute anxiety Arthritis Asthma Depression Diabetic acidosis, type II GERD (gastroesophageal reflux disease) HTN (hypertension) Hx of renal calculi On beta mariaelena at home Right knee injury Family History Other No family history of coronary artery disease Surgical History History of hysterectomy Hx of arthroscopy of right knee Hx of cystoscopy Social History Household Members: None Housing: Apartment Patient Tobacco Use Status: Never used Tobacco Tobacco use type: Cigarette Cigarettes Per Day: 4 Smoked in Last 30 Days: Yes Patient Interested in Nicotine Replacement: Yes Patient Given Instructions on How to Stop Smoking: Yes Date Education Initiated: 03/18/22 Second Hand Smoke Exposure: No Use of substances other than those prescribed or required for medical reasons: No Have you been hit, kicked, punched, or otherwise hurt by someone within the past year? If so, by whom?: No Do you feel safe in your current relationship?: No Is there a partner from a previous relationship who is making you feel unsafe now?: No Are you made to feel afraid or neglected: No Advance Directives: No Advance Directives Information Provided: No Do you have thoughts of harming others: None Do you have a plan to hurt others: No Plan Recently lost weight without trying: No Eating poorly because of decreased appetite: No Nutrition Risks: No Nutritional Risk Current occupational status: employed Meds Allergies Allergy/AdvReac Type Severity Reaction Status Date / Time aspirin [Aspirin] Allergy Intermediate EYES Verified 03/17/22 16:02 SWELLING Penicillins Allergy Intermediate RASH Verified 03/17/22 16:02 citalopram Allergy Unknown chest pain Verified 03/17/22 16:02 Diltiazem HCl Allergy Unknown Unknown Uncoded 03/17/22 16:02 Active Medications: Current Medications Acetaminophen (Acetaminophen 325 Mg Tablet) 650 mg PO Q6H PRN PRN Reason: Pain, Mild (Pain Scale 1-3) Last Admin: 03/18/22 00:43 Dose: 650 mg Documented by: Albuterol/Ipratropium (Albuterol/Iprat 2.5/0.5mg 3 Ml Ampul.Neb) 3 ml INHALE RQ4H PRN PRN Reason: Shortness of Breath/Wheezing Albuterol/Ipratropium (Albuterol/Iprat 2.5/0.5mg 3 Ml Ampul.Neb) 3 ml INHALE RQ4H WHILE AWAKE [facility] Docusate Sodium (Docusate Sodium 100 Mg Capsule) 100 mg PO DAILY PRN PRN Reason: Constipation Heparin Sodium (Porcine) (Heparin Sodium,Porcine 5,000 Unit/Ml Vial) 5,000 unit SUBCUT Q12H [facility] Last Admin: 03/17/22 23:57 Dose: 5,000 unit Documented by: Azithromycin 500 mg/ Sodium (Chloride) 250 mls @ 125 mls/hr IV Q24H [facility] Last Admin: 03/18/22 00:40 Dose: 125 mls/hr Documented by: Ceftriaxone Sodium 1 gm/ (Sodium Chloride) 50 mls @ 100 mls/hr IV Q24H [facility] Last Infusion: 03/18/22 00:30 Dose: Infused Documented by: Methylprednisolone Sodium Succinate (Methylprednisolone Sod Succ 40 Mg/Ml Vial) 40 mg IVPUSH Q12H [facility] Last Admin: 03/17/22 23:57 Dose: 40 mg Documented by: Ondansetron HCl (Ondansetron Hcl 4 Mg/2 Ml Vial) 4 mg IVPUSH Q8H PRN PRN Reason: Nausea and Vomiting Pharmacy Consult (Consult Rx Perform Med Rec) 1 each MISCELLANE ONCE PRN PRN Reason: Consult order Sodium Chloride (0.9 % Sodium Chloride Flush 3 Ml Syringe) 3 ml IVFLUSH QSHIFT [facility] Last Admin: 03/18/22 01:04 Dose: Not Given Documented by: Home Medications Medication Instructions Recorded Confirmed Last Taken Type amitriptyline 50 mg tablet 50 mg PO DAILY 08/03/21 03/17/22 03/17/22 History lisinopril 40 mg tablet 40 mg PO DAILY 08/03/21 03/17/22 03/17/22 History omeprazole 20 mg capsule,delayed 20 mg PO DAILY 08/03/21 03/17/22 03/17/22 History release sertraline 100 mg tablet 100 mg PO DAILY 08/03/21 03/17/22 03/17/22 History tramadol 50 mg tablet 50 mg PO DAILY 08/03/21 03/17/22 03/17/22 History levalbuterol tartrate 45 2 puff PO Q6H 09/14/21 03/17/22 03/17/22 History mcg/actuation aerosol inhaler (Xopenex HFA) clonidine HCl 0.1 mg tablet 1 tab PO BEDTIME 03/17/22 03/17/22 03/16/22 History cyanocobalamin (vitamin B-12) 1 tab PO DAILY 03/17/22 03/17/22 03/16/22 History 1,000 mcg tablet dapagliflozin 10 mg tablet 1 tab PO DAILY 03/17/22 03/17/22 03/17/22 History (Farxiga) ergocalciferol (vitamin D2) 1,250 1 cap PO [place] 03/17/22 03/17/22 03/12/22 History mcg (50,000 unit) capsule ferrous sulfate 325 mg (65 mg 1 tab PO BID 03/17/22 03/17/22 03/17/22 History iron) tablet (FeroSul) hydroxyzine pamoate 50 mg capsule 1 cap PO BEDTIME 03/17/22 03/17/22 03/17/22 History metformin 500 mg tablet,extended 1 tab PO BID 03/17/22 03/17/22 03/17/22 History release 24 hr metoprolol tartrate 50 mg tablet 1 tab PO BID 03/17/22 03/17/22 03/17/22 History Physical Exam Vital Signs and Narrative: Vital Signs: Last Vital Signs Temp 98.0 F 03/18/22 01:01 Pulse 108 H 03/18/22 01:01 Resp 26 H 03/18/22 01:01 BP 114/76 03/18/22 01:01 Pulse Ox 94 03/18/22 01:01 BMI result Body Mass Index 26.5 Const: General: cooperative and no acute distress Orientation/consciousness: patient oriented x3 Eyes: General: appearance normal, both eyes and all related structures Pupils: Equal, round and reactive pupils present Resp: Other: Wheezing Effort & Inspection: normal respiratory effort Cardio: Rate: regular rate Rhythm: regular rhythm GI: Palpation (GI): Soft to palpation Auscultation: normal bowel sounds Skin: General skin exam: no rashes or lesions noted Neuro: General: patient oriented x3 Cranial nerves: Yes Equal, round and reactive pupils present Cognition (Neuro): normal cognition Extrem: General: Yes normal to inspection and Yes no pedal edema Results Labs CBC and Chem 7: 03/17/22 18:11 03/17/22 18:11 Labs: Laboratory Results - last 24 hr 03/17/22 03/17/22 03/17/22 17:18 17:19 17:20 MCV MCH MCHC RDW Plt Count MPV Immature Gran % (Auto) Neut % (Auto) Lymph % (Auto) [place] % (Auto) Eos % (Auto) Baso % (Auto) Lymph # (Auto) [place] # (Auto) Eos # (Auto) Baso # (Auto) Abs Immat Gran (auto) Absolute Neuts (auto) Absolute Nucleated RBC Nucleated RBC % (auto) Anion Gap Estim Creat Clear Calc Estimated GFR Random Glucose Calcium Total Bilirubin Direct Bilirubin AST ALT Alkaline Phosphatase B-Natriuretic Peptide Total Protein Albumin COVID-19 (CUCA) Negative COVID-19 Clin Com See Note Influenza Type A (LILY) Negative Influenza Type B (LILY) Negative Influenza A & B Note See Note S. pyogenes GrpA LILY Negative 03/17/22 03/17/22 03/17/22 18:11 18:11 18:11 MCV 78.4 L MCH 24.3 L MCHC 31.1 RDW 15.6 Plt Count 238 MPV 10.1 Immature Gran % (Auto) 0.4 Neut % (Auto) 68.9 Lymph % (Auto) 21.5 [place] % (Auto) 5.3 Eos % (Auto) 3.8 Baso % (Auto) 0.1 Lymph # (Auto) 2.2 [place] # (Auto) 0.5 Eos # (Auto) 0.4 Baso # (Auto) 0.0 Abs Immat Gran (auto) 0.04 H Absolute Neuts (auto) 7.0 Absolute Nucleated RBC 0.000 Nucleated RBC % (auto) 0.0 Anion Gap 12 Estim Creat Clear Calc 38.4 Estimated GFR 37 Random Glucose 270 H Calcium 9.7 Total Bilirubin 0.5 Direct Bilirubin 0.3 AST 19 ALT 26 Alkaline Phosphatase 162 H B-Natriuretic Peptide < 10 Total Protein 7.6 Albumin 3.9 COVID-19 (CUCA) COVID-19 Clin Com Influenza Type A (LILY) Influenza Type B (LILY) Influenza A & B Note S. pyogenes GrpA LILY Imaging Radiologist's Impressions: Impressions Chest X-Ray 03/17/22 16:32 IMPRESSION: Bibasilar linear airspace disease and bilateral likely trace pleural effusion and/or thickening or combination thereof, new since 10/10/2020. Chest X-Ray 03/17/22 18:52 IMPRESSION: Lateral view confirms small pleural effusion obscuring costophrenic angles, probably mild infiltrate/atelectasis at lung base posteriorly. Assessment and Plan (1) Asthma with acute exacerbation: Status: Acute (2) Pneumonia: Status: Acute (3) Acute respiratory failure with hypoxia: Status: Acute (4) THANH (acute kidney injury): Status: Acute Plan 56-year-old female with history of asthma presents to the hospital with asthma exacerbation to have pneumonia and hypoxia # acute hypoxic respiratory failure - secondary to asthma exacerbation as well as community-acquired pneumonia - will treat with O2 as required, - Solu-Medrol, DuoNeb, antibiotics for treatment of pneumonia # acute asthma exacerbation - wheezing, cough, - will treat with IV Solu-Medrol, DuoNeb - titrate oxygen office tolerated # community-acquired pneumonia - as seen on chest x-ray - patient afebrile, no leukocytosis - will treat with IV antibiotics - follow cultures - COVID and influenza negative # THANH - likely secondary to dehydration - start IV fluids - follow BMP # diabetes - hold metformin - low-dose sliding scale insulin - diabetic diet # depression anxiety - continue mood stabilizers DVT prophylaxis: Heparin subQ Patient requires a medically necessary to night admission for management of hypoxia, asthma exacerbation, Quality Stroke Does the patient have a stroke diagnosis?: No VTE Prior VTE?: No VTE Risk Level:: Medical - moderate - high VTE Device Contraindication: Treatment Not Indicated VTE Drug Contraindication: N/A - Med Ordered
[2022-03-18] MEDS: Lactated Ringers 1,000 ML 100 ML IVCONT (05:58)
[2022-03-18 06:19] LABS: Basophils Percent Auto 0.1 % (0-2); Hemoglobin 11.9 g/dl (12.0-16.0); Imm Gran Abs Auto 0.08 X10*3/uL (0.00-0.03); Imm Gran Pct Auto 0.8 % (0.0-0.4); Lymphocytes Absolute Auto 0.6 X10*3/uL (1.2-4.9); Lymphocytes Percent Auto 6.8 % (20-40); MANUAL DIFF FLAG SCAN; Mean Corpuscular HGB Conc 31.3 g/dl (31.0-35.0); Mean Corpuscular Hemoglobin 23.9 pg (27.0-33.0); Mean Corpuscular Volume 76.5 fL (80.0-98.0); Mean Platelet Volume 10.4 fL (9.4-12.3); Monocytes Absolute Auto 0.1 X10*3/uL (0.1-1.2); Monocytes Percent Auto 0.6 % (2-11); Neutrophils Absolute Auto 8.7 x10*3/uL (2.0-8.3); Neutrophils Percent Auto 91.7 % (45-73); Platelet Count 233 X10*3/uL (160-400); Red Blood Count 4.97 X10*6/uL (4.20-5.50); Red Cell Distribution Width 15.3 % (11.0-16.0); SCAN SMEAR FLAG 1; White Blood Count 9.5 X10*3/uL (4.8-10.8)
[2022-03-18 06:54] LABS: SLIDE REVIEW VERIFIED
[2022-03-18 06:56] LABS: Anion Gap 15 (12-20); Blood Urea Nitrogen 30 mg/dL (9-16); Calcium 9.1 mg/dL (8.4-10.2); Carbon Dioxide 19 mmol/L (22-29); Chloride 102 mmol/L (96-108); Creatinine Clr Calc Pharmacy 29.5; Estimated Glomerular Filt Rate 31; Sodium 130 mmol/L (135-145)
[2022-03-18 06:59] LABS: Glucose Random 540 mg/dL (60-115)
[2022-03-18 07:30] LABS: Glucose, Whole Blood 438 mg/dL (60-115)
[2022-03-18] MEDS: Calcium Gluconate/NaCl,Iso-Osm 1 GM/50 ML PLAST..BAG IV (08:18)
[2022-03-18] MEDS: 0.9 % Sodium Chloride Flush 3 ML SYRINGE IVFLUSH ×3 (08:18→19:43)
[2022-03-18] MEDS: Sodium Zirconium Cyclosilicate 10 GM POWD.PACK PO (08:19)
[2022-03-18] MEDS: Amitriptyline HCl 50 MG TABLET PO (08:19)
[2022-03-18] MEDS: 0.9 % Sodium Chloride 500 ML 250 ML IVCONT (08:19)
[2022-03-18] MEDS: Omeprazole 20 MG CAPSULE.DR PO (08:19)
[2022-03-18] MEDS: traMADoL HCL 50 MG TABLET PO (08:19)
[2022-03-18] MEDS: Ferrous Sulfate 324 MG TABLET.DR PO ×2 (08:20→19:42)
[2022-03-18] MEDS: Metoprolol Tartrate 50 MG TABLET PO ×2 (08:20→19:42)
[2022-03-18] MEDS: Sertraline HCL 100 MG TABLET PO (08:20)
[2022-03-18] MEDS: Cyanocobalamin (Vitamin B-12) 1,000 MCG TABLET 1000 MCG PO (08:20)
[2022-03-18 08:34] LABS: Anion Gap 16 (12-20); Blood Urea Nitrogen 30 mg/dL (9-16); Calcium 9.3 mg/dL (8.4-10.2); Carbon Dioxide 19 mmol/L (22-29); Chloride 102 mmol/L (96-108); Creatinine Clr Calc Pharmacy 31.4; Estimated Glomerular Filt Rate 33; Glucose Random 495 mg/dL (60-115); Sodium 131 mmol/L (135-145)
[2022-03-18] MEDS: Insulin Regular, Human 100 UNIT/ML 3 ML VIAL 10 UNIT IVPUSH ×2 (08:38→15:18)
[2022-03-18] MEDS: Albuterol/Iprat 2.5/0.5MG 3 ML AMPUL.NEB INHALE ×4 (08:47→20:27)
[2022-03-18 09:01] LABS: Glucose, Whole Blood 352 mg/dL (60-115)
[2022-03-18 10:22] LABS: Glucose, Whole Blood 290 mg/dL (60-115)
[2022-03-18] MEDS: Heparin Sodium,Porcine 5,000 UNIT/ML VIAL 5000 UNIT SUBCUT ×2 (10:26→22:29)
[2022-03-18] MEDS: methylPREDNISolone Sod Succ 40 MG/ML VIAL IVPUSH ×2 (10:26→22:29)
[2022-03-18 11:10] LABS: Glucose, Whole Blood 356 mg/dL (60-115)
[2022-03-18] MEDS: Insulin Lispro 100 UNIT/ML 3 ML VIAL SUBCUT ×3 (11:32→19:48)
--- NOTE | 2022-03-18 11:38 | HO.PM.IMPN ---
Subjective Subjective Date of Service: 03/18/22 Interval History: No acute issues overnight. States still wheezy with mild productive cough Review of Systems Denies chest pain Admits to shortness of breath worse with exertion Denies nausea vomiting diarrhea Denies fever and chills Denies rashes Physical Exam Vital Signs: Vital Signs: Last Vital Signs Temp 97.6 F 03/18/22 07:11 Pulse 96 03/18/22 11:00 Resp 18 03/18/22 11:00 BP 123/68 03/18/22 07:11 Pulse Ox 93 03/18/22 07:11 BMI result Body Mass Index 23.1 Const: Other: Awake alert in no acute distress. Able to speak in full sentences Chest: Other: No retractions Resp: Other: Diminished throughout with dense expiratory wheezes all [place]. Scattered coarse rhonchi that clear with cough Cardio: Other: No S4; positive S1-S2; no S3 murmurs rubs or gallops GI: Other: Soft nontender nondistended normoactive bowel sounds. No overt peritoneal signs Neuro: Other: Cranial nerves 2-12 grossly intact as tested. Motor is 5/5 all extremities. Sensation is intact. Cognition is appropriate Extrem: Other: No edema bilaterally Objective Data Active Medications Acetaminophen (Acetaminophen 325 Mg Tablet) 650 mg PO Q6H PRN PRN Reason: Pain, Mild (Pain Scale 1-3) Last Admin: 03/18/22 08:20 Dose: 650 mg Documented by: COTEMA Albuterol/Ipratropium (Albuterol/Iprat 2.5/0.5mg 3 Ml Ampul.Neb) 3 ml INHALE RQ4H PRN PRN Reason: Shortness of Breath/Wheezing Albuterol/Ipratropium (Albuterol/Iprat 2.5/0.5mg 3 Ml Ampul.Neb) 3 ml INHALE RQ4H WHILE AWAKE [facility] Last Admin: 03/18/22 10:59 Dose: 3 ml Documented by: BLASCL Amitriptyline HCl (Amitriptyline Hcl 50 Mg Tablet) 50 mg PO DAILY [facility] Last Admin: 03/18/22 08:19 Dose: 50 mg Documented by: COTEMA Clonidine HCl (Clonidine Hcl 0.1 Mg Tablet) 0.1 mg PO BEDTIME [facility]; Protocol Cyanocobalamin (Cyanocobalamin (Vitamin B-12) 1,000 Mcg Tablet) 1,000 mcg PO DAILY [facility] Last Admin: 03/18/22 08:20 Dose: 1,000 mcg Documented by: RUDIEMA Dextrose (Dextrose 50 % 25 Gm/50 Ml Syringe) 25 gm IVPUSH Q15M PRN; Protocol PRN Reason: per Hypoglycemia Standing Ord. Docusate Sodium (Docusate Sodium 100 Mg Capsule) 100 mg PO DAILY PRN PRN Reason: Constipation Ergocalciferol (Ergocalciferol (Vitamin D2) 1,250 Mcg Capsule) 1,250 mcg PO [facility] Ferrous Sulfate (Ferrous Sulfate 324 Mg Tablet.) 324 mg PO BID [facility] Last Admin: 03/18/22 08:20 Dose: 324 mg Documented by: RUDIEMA Glucose (Glucose Gel 15 Gm Gel..Gram.) 15 gm PO Q15M PRN; Protocol PRN Reason: per Hypoglycemia Standing Ord. Heparin Sodium (Porcine) (Heparin Sodium,Porcine 5,000 Unit/Ml Vial) 5,000 unit SUBCUT Q12H [facility] Last Admin: 03/18/22 10:26 Dose: 5,000 unit Documented by: ANCELMO Hydroxyzine HCl (Hydroxyzine Hcl 50 Mg Tablet) 50 mg PO BEDTIME [facility] Azithromycin 500 mg/ Sodium (Chloride) 250 mls @ 125 mls/hr IV Q24H [facility] Last Infusion: 03/18/22 05:24 Dose: 0 mls/hr Documented by: CASTILM Ceftriaxone Sodium 1 gm/ (Sodium Chloride) 50 mls @ 100 mls/hr IV Q24H [facility] Last Infusion: 03/18/22 00:30 Dose: 100 mls/hr Documented by: BROCK-RYANK Insulin Human Lispro (Insulin Lispro 100 Unit/Ml 3 Ml Vial) 0 unit SUBCUT QIDACHS [facility]; Protocol Last Admin: 03/18/22 11:32 Dose: 10 unit Documented by: ANCELMO Levalbuterol HCl (Levalbuterol Hcl 1.25 Mg/0.5 Ml Vial.Neb) 1.25 mg INHALE Q4H PRN PRN Reason: Shortness of Breath Methylprednisolone Sodium Succinate (Methylprednisolone Sod Succ 40 Mg/Ml Vial) 40 mg IVPUSH Q12H [facility] Last Admin: 03/18/22 10:26 Dose: 40 mg Documented by: HO.COTEMA Metoprolol Tartrate (Metoprolol Tartrate 50 Mg Tablet) 50 mg PO BID [facility]; Protocol Last Admin: 03/18/22 08:20 Dose: 50 mg Documented by: COTEMA Omeprazole (Omeprazole 20 Mg Capsule.Dr) 20 mg PO DAILY [facility] Last Admin: 03/18/22 08:19 Dose: 20 mg Documented by: COTEMA Ondansetron HCl (Ondansetron Hcl 4 Mg/2 Ml Vial) 4 mg IVPUSH Q8H PRN PRN Reason: Nausea and Vomiting Pharmacy Consult (Consult Rx Perform Med Rec) 1 each MISCELLANE ONCE PRN PRN Reason: Consult order Sertraline HCl (Sertraline Hcl 100 Mg Tablet) 100 mg PO DAILY [facility] Last Admin: 03/18/22 08:20 Dose: 100 mg Documented by: COTEMA Sodium Chloride (0.9 % Sodium Chloride Flush 3 Ml Syringe) 3 ml IVFLUSH QSHIFT [facility] Last Admin: 03/18/22 08:18 Dose: 3 ml Documented by: COTEMA Tramadol HCl (Tramadol Hcl 50 Mg Tablet) 50 mg PO DAILY [facility] Last Admin: 03/18/22 08:19 Dose: 50 mg Documented by: ANCELMO Labs CBC & Chem 7: 03/18/22 05:14 03/18/22 07:32 Labs: Laboratory Results - last 24 hr 03/17/22 03/17/22 03/17/22 17:18 17:19 17:20 MCV MCH MCHC RDW Plt Count MPV Immature Gran % (Auto) Neut % (Auto) Lymph % (Auto) [place] % (Auto) Eos % (Auto) Baso % (Auto) Lymph # (Auto) [place] # (Auto) Eos # (Auto) Baso # (Auto) Abs Immat Gran (auto) Absolute Neuts (auto) Absolute Nucleated RBC Nucleated RBC % (auto) Smear Tech's Comments Anion Gap Estim Creat Clear Calc Estimated GFR POC Glucose Random Glucose Calcium Total Bilirubin Direct Bilirubin AST ALT Alkaline Phosphatase B-Natriuretic Peptide Total Protein Albumin COVID-19 (CUCA) Negative COVID-19 Clin Com See Note Influenza Type A (LILY) Negative Influenza Type B (LILY) Negative Influenza A & B Note See Note S. pyogenes GrpA LILY Negative 03/17/22 03/17/22 03/17/22 18:11 18:11 18:11 MCV 78.4 L MCH 24.3 L MCHC 31.1 RDW 15.6 Plt Count 238 MPV 10.1 Immature Gran % (Auto) 0.4 Neut % (Auto) 68.9 Lymph % (Auto) 21.5 [place] % (Auto) 5.3 Eos % (Auto) 3.8 Baso % (Auto) 0.1 Lymph # (Auto) 2.2 [place] # (Auto) 0.5 Eos # (Auto) 0.4 Baso # (Auto) 0.0 Abs Immat Gran (auto) 0.04 H Absolute Neuts (auto) 7.0 Absolute Nucleated RBC 0.000 Nucleated RBC % (auto) 0.0 Smear Tech's Comments Anion Gap 12 Estim Creat Clear Calc 38.4 Estimated GFR 37 POC Glucose Random Glucose 270 H Calcium 9.7 Total Bilirubin 0.5 Direct Bilirubin 0.3 AST 19 ALT 26 Alkaline Phosphatase 162 H B-Natriuretic Peptide < 10 Total Protein 7.6 Albumin 3.9 COVID-19 (CUCA) COVID-19 Clin Com Influenza Type A (LILY) Influenza Type B (LILY) Influenza A & B Note S. pyogenes GrpA LILY 03/18/22 03/18/22 03/18/22 05:14 05:14 07:16 MCV 76.5 L MCH 23.9 L MCHC 31.3 RDW 15.3 Plt Count 233 MPV 10.4 Immature Gran % (Auto) 0.8 H Neut % (Auto) 91.7 H Lymph % (Auto) 6.8 L [place] % (Auto) 0.6 L Eos % (Auto) 0.0 Baso % (Auto) 0.1 Lymph # (Auto) 0.6 L [place] # (Auto) 0.1 Eos # (Auto) 0.0 Baso # (Auto) 0.0 Abs Immat Gran (auto) 0.08 H Absolute Neuts (auto) 8.7 H Absolute Nucleated RBC 0.000 Nucleated RBC % (auto) 0.0 Smear Tech's Comments VERIFIED Anion Gap 15 Estim Creat Clear Calc 29.5 Estimated GFR 31 POC Glucose 438 H* Random Glucose 540 H* Calcium 9.1 D Total Bilirubin Direct Bilirubin AST ALT Alkaline Phosphatase B-Natriuretic Peptide Total Protein Albumin COVID-19 (CUCA) COVID-19 Clin Com Influenza Type A (LILY) Influenza Type B (LILY) Influenza A & B Note S. pyogenes GrpA LILY 03/18/22 03/18/22 03/18/22 07:32 08:57 10:18 MCV MCH MCHC RDW Plt Count MPV Immature Gran % (Auto) Neut % (Auto) Lymph % (Auto) [place] % (Auto) Eos % (Auto) Baso % (Auto) Lymph # (Auto) [place] # (Auto) Eos # (Auto) Baso # (Auto) Abs Immat Gran (auto) Absolute Neuts (auto) Absolute Nucleated RBC Nucleated RBC % (auto) Smear Tech's Comments Anion Gap 16 Estim Creat Clear Calc 31.4 Estimated GFR 33 POC Glucose 352 H* 290 H Random Glucose 495 H* Calcium 9.3 Total Bilirubin Direct Bilirubin AST ALT Alkaline Phosphatase B-Natriuretic Peptide Total Protein Albumin COVID-19 (CUCA) COVID-19 Clin Com Influenza Type A (LILY) Influenza Type B (LILY) Influenza A & B Note S. pyogenes GrpA LILY 03/18/22 11:05 MCV MCH MCHC RDW Plt Count MPV Immature Gran % (Auto) Neut % (Auto) Lymph % (Auto) [place] % (Auto) Eos % (Auto) Baso % (Auto) Lymph # (Auto) [place] # (Auto) Eos # (Auto) Baso # (Auto) Abs Immat Gran (auto) Absolute Neuts (auto) Absolute Nucleated RBC Nucleated RBC % (auto) Smear Tech's Comments Anion Gap Estim Creat Clear Calc Estimated GFR POC Glucose 356 H* Random Glucose Calcium Total Bilirubin Direct Bilirubin AST ALT Alkaline Phosphatase B-Natriuretic Peptide Total Protein Albumin COVID-19 (CUCA) COVID-19 Clin Com Influenza Type A (LILY) Influenza Type B (LILY) Influenza A & B Note S. pyogenes GrpA LILY Assessment and Plan (1) Asthma with acute exacerbation: Status: Acute (2) Pneumonia: Status: Acute (3) THANH (acute kidney injury): Status: Acute (4) Diabetes: Status: Acute Plan 56-year-old female with history of asthma presents to the hospital with asthma exacerbation to have pneumonia and hypoxia 1.Acute asthma exacerbation(secondary to CAP) -ceftriaxone/azithromycin -pulse dose steroids -still but next nebs q.4 hours p.r.n. -supplemental O2; titrate for sats greater than equal to 92% -follow-up cultures 2. THANH(w/hyponatremia...hyperkalemia) -volume repletion (hyponatremia; corrects to 137) -insulin/calcium gluconate/nebs (hyperkalemia) -follow renals/divalents 3.Diabetes II(poorly controlled) - hold metformin until creatinine normalizes - lispro correctional scale - diabetic diet 4.Depression anxiety - continue mood stabilizers Heparin subQ Full code Patient requires ongoing hospitalization for treatment of community-acquired pneumonia with IV antibiotics and steroids for asthma exacerbation. Quality Stroke Does the patient have a stroke diagnosis?: No VTE Prior VTE?: No VTE Risk Level:: Medical - moderate - high VTE Device Contraindication: Treatment Not Indicated VTE Drug Contraindication: N/A - Med Ordered
[2022-03-18 14:22] LABS: Anion Gap 13 (12-20); Blood Urea Nitrogen 29 mg/dL (9-16); Carbon Dioxide 20 mmol/L (22-29); Chloride 103 mmol/L (96-108); Creatinine Clr Calc Pharmacy 32.8; Estimated Glomerular Filt Rate 35; Glucose Random 448 mg/dL (60-115); Potassium 5.2 mmol/L (3.3-5.1); Sodium 131 mmol/L (135-145)
[2022-03-18 16:04] LABS: Glucose, Whole Blood 352 mg/dL (60-115)
--- NOTE | 2022-03-18 16:23 | MHC.CM.PN ---
PT REPORTS SHE LIVES ALONE AND IS FULLY INDEPENDENT PT HAS NO DME AND NO HOME SERVICES PT CONFIRMS HER PCP IS BRANDI JUAREZ PT DOES NOT HAVE A HCP, DOCUMENT AND INFORMATION PROVIDED SHE IS AWARE CM CAN ASSIST DURING ADMISSION IF DESIRED PT REPORTS SHE IS COVID-19 VACCINATED DC PLAN, HOME NO SERVICES PT TO ARRANGE TRANSPORT
[2022-03-18 16:25] LABS: Glucose, Whole Blood 313 mg/dL (60-115)
[2022-03-18] MEDS: Butalb/Acetamin/Caff 50/325/40 TABLET 1 TAB PO (16:31)
[2022-03-18] MEDS: hydrOXYzine HCL 50 MG TABLET PO (19:42)
[2022-03-18] MEDS: cloNIDine HCL 0.1 MG TABLET PO (19:42)
[2022-03-18 19:55] LABS: Glucose, Whole Blood 290 mg/dL (60-115)
[2022-03-18] MEDS: Benzonatate 100 MG CAPSULE 200 MG PO (20:01)
[2022-03-18] MEDS: cefTRIAXone sodium 1 GM in 0.9 % Sodium Chloride 50 ML IV (22:28)
[2022-03-19] VITALS (9 sets, daily range): BP systolic 106–135; BP diastolic 62–78; PULSE 65–100; RESP 18–20; TEMP 36.3–36.9; O2SAT 92–95
[2022-03-19 06:23] LABS: MANUAL DIFF FLAG NO
[2022-03-19 06:28] LABS: Basophils Percent Auto 0.1 % (0-2); Hematocrit 37.5 % (37.0-47.0); Hemoglobin 11.7 g/dl (12.0-16.0); Imm Gran Abs Auto 0.19 X10*3/uL (0.00-0.03); Imm Gran Pct Auto 1.5 % (0.0-0.4); Lymphocytes Percent Auto 7.4 % (20-40); Mean Corpuscular HGB Conc 31.2 g/dl (31.0-35.0); Mean Corpuscular Hemoglobin 23.9 pg (27.0-33.0); Mean Corpuscular Volume 76.7 fL (80.0-98.0); Mean Platelet Volume 10.1 fL (9.4-12.3); Monocytes Absolute Auto 0.3 X10*3/uL (0.1-1.2); Monocytes Percent Auto 2.1 % (2-11); Neutrophils Absolute Auto 11.6 x10*3/uL (2.0-8.3); Neutrophils Percent Auto 88.9 % (45-73); Platelet Count 247 X10*3/uL (160-400); Red Blood Count 4.89 X10*6/uL (4.20-5.50); Red Cell Distribution Width 15.6 % (11.0-16.0)
[2022-03-19] MEDS: Ergocalciferol (Vitamin D2) 1,250 MCG CAPSULE 1250 MCG PO (06:33)
[2022-03-19 07:25] LABS: Glucose, Whole Blood 374 mg/dL (60-115)
[2022-03-19] MEDS: Benzonatate 100 MG CAPSULE 200 MG PO ×2 (08:04→16:00)
[2022-03-19] MEDS: Insulin Lispro 100 UNIT/ML 3 ML VIAL SUBCUT ×6 (08:04→21:19)
[2022-03-19] MEDS: 0.9 % Sodium Chloride Flush 3 ML SYRINGE IVFLUSH ×3 (08:04→22:21)
[2022-03-19] MEDS: Amitriptyline HCl 50 MG TABLET PO (08:05)
[2022-03-19] MEDS: Butalb/Acetamin/Caff 50/325/40 TABLET 1 TAB PO ×3 (08:05→23:17)
[2022-03-19] MEDS: Metoprolol Tartrate 50 MG TABLET PO ×2 (08:05→21:17)
[2022-03-19] MEDS: Omeprazole 20 MG CAPSULE.DR PO (08:05)
[2022-03-19] MEDS: Sertraline HCL 100 MG TABLET PO (08:05)
[2022-03-19] MEDS: traMADoL HCL 50 MG TABLET PO (08:06)
[2022-03-19] MEDS: Ferrous Sulfate 324 MG TABLET.DR PO ×2 (08:06→21:17)
[2022-03-19] MEDS: Cyanocobalamin (Vitamin B-12) 1,000 MCG TABLET 1000 MCG PO (08:06)
[2022-03-19 09:07] LABS: Alanine Aminotransferase 24 U/L (0-31); Albumin Level 3.7 g/dL (3.5-5.0); Alkaline Phosphatase 133 U/L (39-117); Anion Gap 12 (12-20); Aspartate Amino Transferase 15 U/L (5-31); Bilirubin Total 0.3 mg/dL (0.0-1.0); Blood Urea Nitrogen 33 mg/dL (9-16); Calcium 9.1 mg/dL (8.4-10.2); Carbon Dioxide 22 mmol/L (22-29); Chloride 104 mmol/L (96-108); Creatinine Clr Calc Pharmacy 29.7; Estimated Glomerular Filt Rate 31; Glucose Fasting 422 mg/dL (60-99); Potassium 5.8 mmol/L (3.3-5.1); Sodium 132 mmol/L (135-145); Total Protein 7.1 g/dL (6.5-8.0)
[2022-03-19] MEDS: Heparin Sodium,Porcine 5,000 UNIT/ML VIAL 5000 UNIT SUBCUT ×2 (10:08→22:15)
[2022-03-19] MEDS: Sodium Zirconium Cyclosilicate 10 GM POWD.PACK PO (10:08)
[2022-03-19] MEDS: methylPREDNISolone Sod Succ 40 MG/ML VIAL IVPUSH ×2 (10:08→22:14)
[2022-03-19 11:54] LABS: Glucose, Whole Blood 186 mg/dL (60-115)
--- NOTE | 2022-03-19 14:40 | HO.PM.IMPN ---
Subjective Subjective Date of Service: 03/19/22 Interval History: Breathing somewhat improved overnight however still has oxygen requirement Review of Systems Denies chest pain Admits to shortness of breath worse with exertion Denies nausea vomiting diarrhea Denies fever and chills Denies rashes Physical Exam Vital Signs: Vital Signs: Last Vital Signs Temp 97.9 F 03/19/22 11:33 Pulse 72 03/19/22 11:33 Resp 18 03/19/22 11:33 BP 128/74 03/19/22 11:33 Pulse Ox 94 03/19/22 11:33 BMI result Body Mass Index 23.1 Const: Other: Awake alert in no acute distress. Able to speak in full sentences Chest: Other: No retractions Resp: Other: Diminished throughout with dense expiratory wheezes all faria. Scattered coarse rhonchi that clear with cough Cardio: Other: No S4; positive S1-S2; no S3 murmurs rubs or gallops GI: Other: Soft nontender nondistended normoactive bowel sounds. No overt peritoneal signs Neuro: Other: Cranial nerves 2-12 grossly intact as tested. Motor is 5/5 all extremities. Sensation is intact. Cognition is appropriate Extrem: Other: No edema bilaterally Objective Data Active Medications Acetaminophen (Acetaminophen 325 Mg Tablet) 650 mg PO Q6H PRN PRN Reason: Pain, Mild (Pain Scale 1-3) Last Admin: 03/18/22 15:18 Dose: 650 mg Documented by: COTEMA Acetaminophen/Butalbital/Caffeine (Butalb/Acetamin/Caff 50/325/40 Tablet) 1 tab PO Q4H PRN PRN Reason: Headache Last Admin: 03/19/22 08:05 Dose: 1 tab Documented by: RUDIEMA Albuterol/Ipratropium (Albuterol/Iprat 2.5/0.5mg 3 Ml Ampul.Neb) 3 ml INHALE RQ4H PRN PRN Reason: Shortness of Breath/Wheezing Albuterol/Ipratropium (Albuterol/Iprat 2.5/0.5mg 3 Ml Ampul.Neb) 3 ml INHALE RQ4H WHILE AWAKE [facility] Last Admin: 03/19/22 11:30 Dose: Not Given Documented by: MAYRA Non-Admin Reason: Patient Refused Amitriptyline HCl (Amitriptyline Hcl 50 Mg Tablet) 50 mg PO DAILY [facility] Last Admin: 03/19/22 08:05 Dose: 50 mg Documented by: COTEMA Benzonatate (Benzonatate 100 Mg Capsule) 200 mg PO TID PRN PRN Reason: cough Last Admin: 03/19/22 08:04 Dose: 200 mg Documented by: COTEMA Clonidine HCl (Clonidine Hcl 0.1 Mg Tablet) 0.1 mg PO BEDTIME [facility]; Protocol Last Admin: 03/18/22 19:42 Dose: 0.1 mg Documented by: VIKY Cyanocobalamin (Cyanocobalamin (Vitamin B-12) 1,000 Mcg Tablet) 1,000 mcg PO DAILY [facility] Last Admin: 03/19/22 08:06 Dose: 1,000 mcg Documented by: RUDIEMA Dextrose (Dextrose 50 % 25 Gm/50 Ml Syringe) 25 gm IVPUSH Q15M PRN; Protocol PRN Reason: per Hypoglycemia Standing Ord. Docusate Sodium (Docusate Sodium 100 Mg Capsule) 100 mg PO DAILY PRN PRN Reason: Constipation Ergocalciferol (Ergocalciferol (Vitamin D2) 1,250 Mcg Capsule) 1,250 mcg PO OWENS [facility] Last Admin: 03/19/22 06:33 Dose: 1,250 mcg Documented by: VIKY Ferrous Sulfate (Ferrous Sulfate 324 Mg Tablet.Dr) 324 mg PO BID [facility] Last Admin: 03/19/22 08:06 Dose: 324 mg Documented by: RUDIEMA Glucose (Glucose Gel 15 Gm Gel..Gram.) 15 gm PO Q15M PRN; Protocol PRN Reason: per Hypoglycemia Standing Ord. Heparin Sodium (Porcine) (Heparin Sodium,Porcine 5,000 Unit/Ml Vial) 5,000 unit SUBCUT Q12H [facility] Last Admin: 03/19/22 10:08 Dose: 5,000 unit Documented by: RUDIEMA Hydroxyzine HCl (Hydroxyzine Hcl 50 Mg Tablet) 50 mg PO BEDTIME [facility] Last Admin: 03/18/22 19:42 Dose: 50 mg Documented by: VIKY Ceftriaxone Sodium 1 gm/ (Sodium Chloride) 50 mls @ 100 mls/hr IV Q24H [facility] Last Infusion: 03/18/22 23:06 Dose: 0 mls/hr Documented by: VIKY Azithromycin 500 mg/ Sodium (Chloride) 250 mls @ 125 mls/hr IV Q24H [facility] Last Infusion: 03/19/22 01:50 Dose: 0 mls/hr Documented by: CASTILM Insulin Human Lispro (Insulin Lispro 100 Unit/Ml 3 Ml Vial) 0 unit SUBCUT QIDACHS [facility]; Protocol Last Admin: 03/19/22 12:13 Dose: 2 unit Documented by: COTEMA Levalbuterol HCl (Levalbuterol Hcl 1.25 Mg/0.5 Ml Vial.Neb) 1.25 mg INHALE Q4H PRN PRN Reason: Shortness of Breath Methylprednisolone Sodium Succinate (Methylprednisolone Sod Succ 40 Mg/Ml Vial) 40 mg IVPUSH Q12H [facility] Last Admin: 03/19/22 10:08 Dose: 40 mg Documented by: COTEMA Metoprolol Tartrate (Metoprolol Tartrate 50 Mg Tablet) 50 mg PO BID [facility]; Protocol Last Admin: 03/19/22 08:05 Dose: 50 mg Documented by: COTEMA Omeprazole (Omeprazole 20 Mg Capsule.) 20 mg PO DAILY [facility] Last Admin: 03/19/22 08:05 Dose: 20 mg Documented by: COTEMA Ondansetron HCl (Ondansetron Hcl 4 Mg/2 Ml Vial) 4 mg IVPUSH Q8H PRN PRN Reason: Nausea and Vomiting Pharmacy Consult (Consult Rx Perform Med Rec) 1 each MISCELLANE ONCE PRN PRN Reason: Consult order Sertraline HCl (Sertraline Hcl 100 Mg Tablet) 100 mg PO DAILY [facility] Last Admin: 03/19/22 08:05 Dose: 100 mg Documented by: RUDIEMA Sodium Chloride (0.9 % Sodium Chloride Flush 3 Ml Syringe) 3 ml IVFLUSH QSHIFT [facility] Last Admin: 03/19/22 08:04 Dose: 3 ml Documented by: COTEMA Tramadol HCl (Tramadol Hcl 50 Mg Tablet) 50 mg PO DAILY [facility] Last Admin: 03/19/22 08:06 Dose: 50 mg Documented by: ANCELMO Labs CBC & Chem 7: 03/19/22 06:07 03/19/22 06:07 Labs: Laboratory Results - last 24 hr 03/18/22 03/18/22 03/18/22 15:29 16:19 19:45 MCV MCH MCHC RDW Plt Count MPV Immature Gran % (Auto) Neut % (Auto) Lymph % (Auto) [place] % (Auto) Eos % (Auto) Baso % (Auto) Lymph # (Auto) [place] # (Auto) Eos # (Auto) Baso # (Auto) Abs Immat Gran (auto) Absolute Neuts (auto) Absolute Nucleated RBC Nucleated RBC % (auto) Anion Gap Estim Creat Clear Calc Estimated GFR POC Glucose 352 H* 313 H 290 H Fasting Glucose Calcium Total Bilirubin AST ALT Alkaline Phosphatase Total Protein Albumin 03/19/22 03/19/22 03/19/22 06:07 06:07 07:11 MCV 76.7 L MCH 23.9 L MCHC 31.2 RDW 15.6 Plt Count 247 MPV 10.1 Immature Gran % (Auto) 1.5 H Neut % (Auto) 88.9 H Lymph % (Auto) 7.4 L [place] % (Auto) 2.1 Eos % (Auto) 0.0 Baso % (Auto) 0.1 Lymph # (Auto) 1.0 L [place] # (Auto) 0.3 Eos # (Auto) 0.0 Baso # (Auto) 0.0 Abs Immat Gran (auto) 0.19 H Absolute Neuts (auto) 11.6 H Absolute Nucleated RBC 0.000 Nucleated RBC % (auto) 0.0 Anion Gap 12 Estim Creat Clear Calc 29.7 Estimated GFR 31 POC Glucose 374 H* Fasting Glucose 422 H* Calcium 9.1 Total Bilirubin 0.3 AST 15 ALT 24 Alkaline Phosphatase 133 H Total Protein 7.1 Albumin 3.7 03/19/22 11:35 MCV MCH MCHC RDW Plt Count MPV Immature Gran % (Auto) Neut % (Auto) Lymph % (Auto) [place] % (Auto) Eos % (Auto) Baso % (Auto) Lymph # (Auto) [place] # (Auto) Eos # (Auto) Baso # (Auto) Abs Immat Gran (auto) Absolute Neuts (auto) Absolute Nucleated RBC Nucleated RBC % (auto) Anion Gap Estim Creat Clear Calc Estimated GFR POC Glucose 186 H Fasting Glucose Calcium Total Bilirubin AST ALT Alkaline Phosphatase Total Protein Albumin Assessment and Plan (1) Asthma with acute exacerbation: Status: Acute (2) THANH (acute kidney injury): Status: Acute (3) Diabetes: Status: Acute Plan 56-year-old female with history of asthma presents to the hospital with asthma exacerbation to have pneumonia and hypoxia 1.Acute asthma exacerbation(secondary to CAP) -ceftriaxone/azithromycin -pulse dose steroids -nebs q.4 hours p.r.n. -supplemental O2; titrate for sats greater than equal to 92% 2. THANH(w/hyponatremia...hyperkalemia) -volume repletion (hyponatremia; corrects to 137) -insulin/calcium gluconate/nebs (hyperkalemia) -follow renals/divalents -renal consult 3.Diabetes II(poorly controlled) - hold metformin until creatinine normalizes - lispro correctional scale - diabetic diet 4.Depression anxiety - continue mood stabilizers Heparin subQ Full code Patient requires ongoing hospitalization for treatment of community-acquired pneumonia with IV antibiotics and steroids for asthma exacerbation. Quality Stroke Does the patient have a stroke diagnosis?: No VTE Prior VTE?: No VTE Risk Level:: Medical - moderate - high VTE Device Contraindication: Treatment Not Indicated VTE Drug Contraindication: N/A - Med Ordered
[2022-03-19] MEDS: Albuterol/Iprat 2.5/0.5MG 3 ML AMPUL.NEB INHALE ×2 (15:14→19:55)
[2022-03-19 16:07] LABS: Glucose, Whole Blood 371 mg/dL (60-115)
--- NOTE | 2022-03-19 17:11 | PM.CNNEP ---
History of Present Illness Reason for Consult Consult date: 03/19/22 Reason for consult: THANH, non-oliguric Chief Complaint Chief complaint: asthma exacerbation, CAP History of Present Illness Narrative: 56-year-old female with past medical history of diabetes, hypertension, asthma, anxiety and depression who presented to [facility] on 03/17 with complaints of shortness of breath for the past 1 week. Patient reports cough, some sputum production, no fever some chills, no chest pain, no abdominal pain, no nausea or vomiting, no diarrhea constipation, no urinary symptoms. She reports that she has been trying to use her rescue inhaler with no relief. On arrival to the ED patient noted to have a slight tachycardia, as well as hypoxic 88% on room air. Labs are reviewed showed a Na = 130, K = 6.0, BUN = 30, creatinine of 1.47 from a baseline of around 1.2, S-glucose = 438, COVID-19 and influenza negative. CXR performed with noted hyypoventilatory /atelectatic changes with suspected trace pleural effusions. Nephrology subsequently consulted for THANH. Review of Systems Review of Systems Yes all other systems are reviewed and are negative Constitutional: Reports as per HPI [facility] Past Medical History Medical History Acute anxiety Arthritis Asthma Depression Diabetic acidosis, type II GERD (gastroesophageal reflux disease) HTN (hypertension) Hx of renal calculi On beta mariaelena at home Right knee injury Family History Family History Other No family history of coronary artery disease Surgical History Surgical History History of hysterectomy Hx of arthroscopy of right knee Hx of cystoscopy Social History Social History Household Members: None Housing: Apartment Patient Tobacco Use Status: Never used Tobacco Tobacco use type: Cigarette Cigarettes Per Day: 4 Smoked in Last 30 Days: Yes Patient Interested in Nicotine Replacement: Yes Patient Given Instructions on How to Stop Smoking: Yes Date Education Initiated: 03/18/22 Second Hand Smoke Exposure: No Use of substances other than those prescribed or required for medical reasons: No Currently Displaying Signs/Symptoms of Drug Intoxication Withdrawal: No Have you been hit, kicked, punched, or otherwise hurt by someone within the past year? If so, by whom?: No Do you feel safe in your current relationship?: No Is there a partner from a previous relationship who is making you feel unsafe now?: No Are you made to feel afraid or neglected: No Advance Directives: No Advance Directives Information Provided: No Do you have thoughts of harming others: None Do you have a plan to hurt others: No Plan Recently lost weight without trying: No Eating poorly because of decreased appetite: No Nutrition Risks: No Nutritional Risk service: No Current occupational status: employed Meds Allergies Allergy/AdvReac Type Severity Reaction Status Date / Time aspirin [Aspirin] Allergy Intermediate EYES Verified 03/17/22 16:02 SWELLING Penicillins Allergy Intermediate RASH Verified 03/17/22 16:02 citalopram Allergy Unknown chest pain Verified 03/17/22 16:02 Diltiazem HCl Allergy Unknown Unknown Uncoded 03/17/22 16:02 Active Medications: Current Medications Acetaminophen (Acetaminophen 325 Mg Tablet) 650 mg PO Q6H PRN PRN Reason: Pain, Mild (Pain Scale 1-3) Last Admin: 03/18/22 15:18 Dose: 650 mg Documented by: Acetaminophen/Butalbital/Caffeine (Butalb/Acetamin/Caff 50/325/40 Tablet) 1 tab PO Q4H PRN PRN Reason: Headache Last Admin: 03/19/22 16:00 Dose: 1 tab Documented by: Albuterol/Ipratropium (Albuterol/Iprat 2.5/0.5mg 3 Ml Ampul.Neb) 3 ml INHALE RQ4H PRN PRN Reason: Shortness of Breath/Wheezing Albuterol/Ipratropium (Albuterol/Iprat 2.5/0.5mg 3 Ml Ampul.Neb) 3 ml INHALE RQ4H WHILE AWAKE [facility] Last Admin: 03/19/22 15:14 Dose: 3 ml Documented by: Amitriptyline HCl (Amitriptyline Hcl 50 Mg Tablet) 50 mg PO DAILY [facility] Last Admin: 03/19/22 08:05 Dose: 50 mg Documented by: Benzonatate (Benzonatate 100 Mg Capsule) 200 mg PO TID PRN PRN Reason: cough Last Admin: 03/19/22 16:00 Dose: 200 mg Documented by: Clonidine HCl (Clonidine Hcl 0.1 Mg Tablet) 0.1 mg PO BEDTIME [facility]; Protocol Last Admin: 03/18/22 19:42 Dose: 0.1 mg Documented by: Cyanocobalamin (Cyanocobalamin (Vitamin B-12) 1,000 Mcg Tablet) 1,000 mcg PO DAILY [facility] Last Admin: 03/19/22 08:06 Dose: 1,000 mcg Documented by: Dextrose (Dextrose 50 % 25 Gm/50 Ml Syringe) 25 gm IVPUSH Q15M PRN; Protocol PRN Reason: per Hypoglycemia Standing Ord. Docusate Sodium (Docusate Sodium 100 Mg Capsule) 100 mg PO DAILY PRN PRN Reason: Constipation Ergocalciferol (Ergocalciferol (Vitamin D2) 1,250 Mcg Capsule) 1,250 mcg PO OWENS [facility] Last Admin: 03/19/22 06:33 Dose: 1,250 mcg Documented by: Ferrous Sulfate (Ferrous Sulfate 324 Mg Tablet.) 324 mg PO BID [facility] Last Admin: 03/19/22 08:06 Dose: 324 mg Documented by: Glucose (Glucose Gel 15 Gm Gel..Gram.) 15 gm PO Q15M PRN; Protocol PRN Reason: per Hypoglycemia Standing Ord. Heparin Sodium (Porcine) (Heparin Sodium,Porcine 5,000 Unit/Ml Vial) 5,000 unit SUBCUT Q12H [facility] Last Admin: 03/19/22 10:08 Dose: 5,000 unit Documented by: Hydroxyzine HCl (Hydroxyzine Hcl 50 Mg Tablet) 50 mg PO BEDTIME [facility] Last Admin: 03/18/22 19:42 Dose: 50 mg Documented by: Ceftriaxone Sodium 1 gm/ (Sodium Chloride) 50 mls @ 100 mls/hr IV Q24H [facility] Last Infusion: 03/18/22 23:06 Dose: Infused Documented by: Azithromycin 500 mg/ Sodium (Chloride) 250 mls @ 125 mls/hr IV Q24H [facility] Last Infusion: 03/19/22 01:50 Dose: Infused Documented by: Insulin Human Lispro (Insulin Lispro 100 Unit/Ml 3 Ml Vial) 0 unit SUBCUT QIDACHS [facility]; Protocol Last Admin: 03/19/22 16:33 Dose: 10 unit Documented by: Levalbuterol HCl (Levalbuterol Hcl 1.25 Mg/0.5 Ml Vial.Neb) 1.25 mg INHALE Q4H PRN PRN Reason: Shortness of Breath Methylprednisolone Sodium Succinate (Methylprednisolone Sod Succ 40 Mg/Ml Vial) 40 mg IVPUSH Q12H [facility] Last Admin: 03/19/22 10:08 Dose: 40 mg Documented by: Metoprolol Tartrate (Metoprolol Tartrate 50 Mg Tablet) 50 mg PO BID [facility]; Protocol Last Admin: 03/19/22 08:05 Dose: 50 mg Documented by: Omeprazole (Omeprazole 20 Mg Capsule.) 20 mg PO DAILY [facility] Last Admin: 03/19/22 08:05 Dose: 20 mg Documented by: Ondansetron HCl (Ondansetron Hcl 4 Mg/2 Ml Vial) 4 mg IVPUSH Q8H PRN PRN Reason: Nausea and Vomiting Pharmacy Consult (Consult Rx Perform Med Rec) 1 each MISCELLANE ONCE PRN PRN Reason: Consult order Sertraline HCl (Sertraline Hcl 100 Mg Tablet) 100 mg PO DAILY [facility] Last Admin: 03/19/22 08:05 Dose: 100 mg Documented by: Sodium Chloride (0.9 % Sodium Chloride Flush 3 Ml Syringe) 3 ml IVFLUSH QSHIFT [facility] Last Admin: 03/19/22 16:00 Dose: 3 ml Documented by: Tramadol HCl (Tramadol Hcl 50 Mg Tablet) 50 mg PO DAILY [facility] Last Admin: 03/19/22 08:06 Dose: 50 mg Documented by: Home Medications Medication Instructions Recorded Confirmed Last Taken Type amitriptyline 50 mg tablet 50 mg PO DAILY 08/03/21 03/17/22 03/17/22 History lisinopril 40 mg tablet 40 mg PO DAILY 08/03/21 03/17/22 03/17/22 History omeprazole 20 mg capsule,delayed 20 mg PO DAILY 08/03/21 03/17/22 03/17/22 History release sertraline 100 mg tablet 100 mg PO DAILY 08/03/21 03/17/22 03/17/22 History tramadol 50 mg tablet 50 mg PO DAILY 08/03/21 03/17/22 03/17/22 History levalbuterol tartrate 45 2 puff PO Q6H 09/14/21 03/17/22 03/17/22 History mcg/actuation aerosol inhaler (Xopenex HFA) clonidine HCl 0.1 mg tablet 1 tab PO BEDTIME 03/17/22 03/17/22 03/16/22 History cyanocobalamin (vitamin B-12) 1 tab PO DAILY 03/17/22 03/17/22 03/16/22 History 1,000 mcg tablet dapagliflozin 10 mg tablet 1 tab PO DAILY 03/17/22 03/17/22 03/17/22 History (Farxiga) ergocalciferol (vitamin D2) 1,250 1 cap PO OWENS 03/17/22 03/17/22 03/12/22 History mcg (50,000 unit) capsule ferrous sulfate 325 mg (65 mg 1 tab PO BID 03/17/22 03/17/22 03/17/22 History iron) tablet (FeroSul) hydroxyzine pamoate 50 mg capsule 1 cap PO BEDTIME 03/17/22 03/17/22 03/17/22 History metformin 500 mg tablet,extended 1 tab PO BID 03/17/22 03/17/22 03/17/22 History release 24 hr metoprolol tartrate 50 mg tablet 1 tab PO BID 03/17/22 03/17/22 03/17/22 History Physical Exam Vital Signs: Last Vital Signs Temp 98.4 F 03/19/22 15:32 Pulse 100 03/19/22 15:32 Resp 20 03/19/22 15:32 BP 125/70 03/19/22 15:32 Pulse Ox 92 03/19/22 15:32 BMI result Body Mass Index 23.1 Const General: no acute distress Orientation/consciousness: patient oriented x3 HEENT Head: Yes normocephalic and Yes atraumatic Neck Neck: Yes no JVD Resp Auscultation: clear to auscultation bilaterally Cardio Jugular venous distension: no JVD Rate: regular rate Rhythm: regular rhythm Heart sounds: S1 normal heart sound present and S2 normal heart sound present GI Auscultation: normal bowel sounds Neuro General: patient oriented x3 Extrem General: Yes no clubbing, cyanosis or edema Results Lab Results Result Diagrams: 03/19/22 06:07 03/19/22 06:07 Lab results: Chemistry 03/17/22 03/18/22 03/18/22 18:11 05:14 07:32 Sodium 136 130 L 131 L Potassium 4.7 6.0 H* D 6.0 H* Carbon Dioxide 25 19 L 19 L Anion Gap 12 15 16 BUN 21 H 30 H 30 H Creatinine 1.47 H 1.70 H 1.60 H Calcium 9.7 9.1 D 9.3 03/18/22 03/19/22 13:16 06:07 Sodium 131 L 132 L Potassium 5.2 H 5.8 H Carbon Dioxide 20 L 22 Anion Gap 13 12 BUN 29 H 33 H Creatinine 1.53 H 1.69 H Calcium 9.0 9.1 Hematology 03/17/22 03/18/22 03/19/22 18:11 05:14 06:07 WBC 10.1 9.5 13.0 H Hgb 12.7 11.9 L 11.7 L Plt Count 238 233 247 Assessment and Plan (1) THANH (acute kidney injury): Status: Acute Plan Problem List: #HTANH, Non-oliguric: #Hyperkalemia #Hyponatremia #HAGMA Plan: THANH in setting of acute asthma exacerbation 2/2 CAP. Noted hyperkelamia likely secondary to hyperglycemia, thanh, home acei use, and diminished distal Na delivery in setting of CAP. Her BS's are elevated. Will add UA. I suspect she has significant glucosuria which is placing her at risk for osmostic diuresis and further volume depletion/pre-renal injury. Her acei use further prevented renal hemodynamic regulation in order to compensate for her diminished intravascular volume. Suggest BS control and IVF's maintenance for volume repletion. Will add lokelma 10G now. Suggest 10 Gm lokelma prn K> 5.0. Monitor I/O's renal US if S-Cr continues to rise. Avoidance of nsaids, acei/arbs, IV contrast, renal dosing abx. Procedures Date of Service Date of Service: 03/19/22
[2022-03-19 19:59] LABS: Glucose, Whole Blood 395 mg/dL (60-115)
[2022-03-19] MEDS: cloNIDine HCL 0.1 MG TABLET PO (21:17)
[2022-03-19] MEDS: hydrOXYzine HCL 50 MG TABLET PO (21:17)
[2022-03-19] MEDS: cefTRIAXone sodium 1 GM in 0.9 % Sodium Chloride 50 ML IV (22:14)
[2022-03-19] MEDS: guaiFENesin DM 100/10/5 ML 5 ML SYRUP PO (23:08)
[2022-03-19] MEDS: Azithromycin 500 MG in 0.9 % Sodium Chloride 250 ML 125 MG IV (23:08)
[2022-03-20] VITALS (9 sets, daily range): BP systolic 122–142; BP diastolic 68–89; PULSE 67–88; RESP 16–20; TEMP 36.2–36.8; O2SAT 91–98
[2022-03-20] MEDS: guaiFENesin DM 100/10/5 ML 5 ML SYRUP PO (03:31)
[2022-03-20 06:08] LABS: Basophils Percent Auto 0.2 % (0-2); Hematocrit 38.9 % (37.0-47.0); Hemoglobin 12.2 g/dl (12.0-16.0); Imm Gran Abs Auto 0.85 X10*3/uL (0.00-0.03); Imm Gran Pct Auto 6.5 % (0.0-0.4); Lymphocytes Percent Auto 7.8 % (20-40); Mean Corpuscular HGB Conc 31.4 g/dl (31.0-35.0); Mean Corpuscular Hemoglobin 24.4 pg (27.0-33.0); Mean Platelet Volume 10.7 fL (9.4-12.3); Monocytes Absolute Auto 0.4 X10*3/uL (0.1-1.2); Monocytes Percent Auto 2.8 % (2-11); Neutrophils Absolute Auto 10.9 x10*3/uL (2.0-8.3); Neutrophils Percent Auto 82.7 % (45-73); Platelet Count 257 X10*3/uL (160-400); Red Blood Count 4.99 X10*6/uL (4.20-5.50); Red Cell Distribution Width 15.7 % (11.0-16.0); SCAN SMEAR FLAG 1; White Blood Count 13.1 X10*3/uL (4.8-10.8)
[2022-03-20 06:29] LABS: Alanine Aminotransferase 19 U/L (0-31); Albumin Level 3.8 g/dL (3.5-5.0); Alkaline Phosphatase 133 U/L (39-117); Anion Gap 14 (12-20); Aspartate Amino Transferase 14 U/L (5-31); Bilirubin Total 0.5 mg/dL (0.0-1.0); Blood Urea Nitrogen 35 mg/dL (9-16); Calcium 9.2 mg/dL (8.4-10.2); Carbon Dioxide 23 mmol/L (22-29); Chloride 101 mmol/L (96-108); Estimated Glomerular Filt Rate 34; Potassium 5.7 mmol/L (3.3-5.1); Sodium 132 mmol/L (135-145); Total Protein 7.3 g/dL (6.5-8.0)
[2022-03-20 06:36] LABS: Glucose Fasting 421 mg/dL (60-99)
[2022-03-20 06:38] LABS: MANUAL DIFF FLAG SCAN
[2022-03-20 06:40] LABS: SLIDE REVIEW VERIFIED
[2022-03-20] MEDS: Albuterol/Iprat 2.5/0.5MG 3 ML AMPUL.NEB INHALE ×4 (07:02→19:14)
[2022-03-20] MEDS: Insulin Lispro 100 UNIT/ML 3 ML VIAL SUBCUT ×5 (07:10→21:39)
[2022-03-20 07:30] LABS: Glucose, Whole Blood 379 mg/dL (60-115)
[2022-03-20] MEDS: Sertraline HCL 100 MG TABLET PO (09:36)
[2022-03-20] MEDS: traMADoL HCL 50 MG TABLET PO (09:36)
[2022-03-20] MEDS: Ferrous Sulfate 324 MG TABLET.DR PO ×2 (09:36→23:14)
[2022-03-20] MEDS: Amitriptyline HCl 50 MG TABLET PO (09:36)
[2022-03-20] MEDS: Omeprazole 20 MG CAPSULE.DR PO (09:36)
[2022-03-20] MEDS: Cyanocobalamin (Vitamin B-12) 1,000 MCG TABLET 1000 MCG PO (09:36)
[2022-03-20] MEDS: Metoprolol Tartrate 50 MG TABLET PO ×2 (09:36→21:38)
[2022-03-20] MEDS: Heparin Sodium,Porcine 5,000 UNIT/ML VIAL 5000 UNIT SUBCUT ×2 (09:37→23:15)
[2022-03-20] MEDS: 0.9 % Sodium Chloride Flush 3 ML SYRINGE IVFLUSH ×2 (09:37→17:07)
[2022-03-20] MEDS: methylPREDNISolone Sod Succ 40 MG/ML VIAL IVPUSH (09:37)
--- NOTE | 2022-03-20 09:41 | P.PNIM_ITS ---
Subjective Subjective Date of Service: 03/20/22 Interval History: Still short of breath with productive cough Review of Systems Denies chest pain Admits to exertional shortness of breath; also shortness of breath at rest Denies nausea vomiting diarrhea Admits headache Denies fever chills Physical Exam Vital Signs: Vital Signs: Last Vital Signs Temp 97.2 F 03/20/22 07:13 Pulse 88 03/20/22 07:13 Resp 20 03/20/22 07:13 BP 122/73 03/20/22 07:13 Pulse Ox 91 L 03/20/22 07:13 BMI result Body Mass Index 23.1 Const: Other: Awake alert in no acute distress. Able to speak in full sentences Chest: Other: No retractions Resp: Other: Diminished throughout with dense expiratory wheezes all [place]. Scattered coarse rhonchi that clear with cough Cardio: Other: No S4; positive S1-S2; no S3 murmurs rubs or gallops GI: Other: Soft nontender nondistended normoactive bowel sounds. No overt peritoneal signs Neuro: Other: Cranial nerves 2-12 grossly intact as tested. Motor is 5/5 all extremities. Sensation is intact. Cognition is appropriate Extrem: Other: No edema bilaterally Objective Data Active Medications Acetaminophen (Acetaminophen 325 Mg Tablet) 650 mg PO Q6H PRN PRN Reason: Pain, Mild (Pain Scale 1-3) Last Admin: 03/18/22 15:18 Dose: 650 mg Documented by: COTEMA Acetaminophen/Butalbital/Caffeine (Butalb/Acetamin/Caff 50/325/40 Tablet) 1 tab PO Q4H PRN PRN Reason: Headache Last Admin: 03/19/22 23:17 Dose: 1 tab Documented by: ARJUN Albuterol/Ipratropium (Albuterol/Iprat 2.5/0.5mg 3 Ml Ampul.Neb) 3 ml INHALE RQ4H PRN PRN Reason: Shortness of Breath/Wheezing Albuterol/Ipratropium (Albuterol/Iprat 2.5/0.5mg 3 Ml Ampul.Neb) 3 ml INHALE RQ4H WHILE AWAKE [facility] Last Admin: 03/20/22 07:02 Dose: 3 ml Documented by: MAYRA Amitriptyline HCl (Amitriptyline Hcl 50 Mg Tablet) 50 mg PO DAILY [facility] Last Admin: 03/19/22 08:05 Dose: 50 mg Documented by: COTEMA Benzonatate (Benzonatate 100 Mg Capsule) 200 mg PO TID PRN PRN Reason: cough Last Admin: 03/19/22 16:00 Dose: 200 mg Documented by: ANCELMO Clonidine HCl (Clonidine Hcl 0.1 Mg Tablet) 0.1 mg PO BEDTIME [facility]; Protocol Last Admin: 03/19/22 21:17 Dose: 0.1 mg Documented by: ARJUN Cyanocobalamin (Cyanocobalamin (Vitamin B-12) 1,000 Mcg Tablet) 1,000 mcg PO DAILY [facility] Last Admin: 03/19/22 08:06 Dose: 1,000 mcg Documented by: ANCELMO Dextrose (Dextrose 50 % 25 Gm/50 Ml Syringe) 25 gm IVPUSH Q15M PRN; Protocol PRN Reason: per Hypoglycemia Standing Ord. Docusate Sodium (Docusate Sodium 100 Mg Capsule) 100 mg PO DAILY PRN PRN Reason: Constipation Ergocalciferol (Ergocalciferol (Vitamin D2) 1,250 Mcg Capsule) 1,250 mcg PO [place] [facility] Last Admin: 03/19/22 06:33 Dose: 1,250 mcg Documented by: CASTILManisha Ferrous Sulfate (Ferrous Sulfate 324 Mg Tablet.Dr) 324 mg PO BID [facility] Last Admin: 03/19/22 21:17 Dose: 324 mg Documented by: ARJUN Glucose (Glucose Gel 15 Gm Gel..Gram.) 15 gm PO Q15M PRN; Protocol PRN Reason: per Hypoglycemia Standing Ord. Guaifenesin/Dextromethorphan (Guaifenesin Dm 100/10/5 Ml 5 Ml Syrup) 5 ml PO Q4H PRN PRN Reason: cough Last Admin: 03/20/22 03:31 Dose: 5 ml Documented by: ARJUN Heparin Sodium (Porcine) (Heparin Sodium,Porcine 5,000 Unit/Ml Vial) 5,000 unit SUBCUT Q12H [facility] Last Admin: 03/19/22 22:15 Dose: 5,000 unit Documented by: ARJUN Hydroxyzine HCl (Hydroxyzine Hcl 50 Mg Tablet) 50 mg PO BEDTIME [facility] Last Admin: 03/19/22 21:17 Dose: 50 mg Documented by: ARJUN Ceftriaxone Sodium 1 gm/ (Sodium Chloride) 50 mls @ 100 mls/hr IV Q24H [facility] Last Infusion: 03/20/22 00:18 Dose: 100 mls/hr Documented by: ARJUN Azithromycin 500 mg/ Sodium (Chloride) 250 mls @ 125 mls/hr IV Q24H [facility] Last Infusion: 03/20/22 01:10 Dose: 125 mls/hr Documented by: ARJUN Insulin Human Lispro (Insulin Lispro 100 Unit/Ml 3 Ml Vial) 0 unit SUBCUT QIDACHS [facility]; Protocol Last Admin: 03/19/22 21:19 Dose: 10 unit Documented by: ARJUN Levalbuterol HCl (Levalbuterol Hcl 1.25 Mg/0.5 Ml Vial.Neb) 1.25 mg INHALE Q4H PRN PRN Reason: Shortness of Breath Methylprednisolone Sodium Succinate (Methylprednisolone Sod Succ 40 Mg/Ml Vial) 40 mg IVPUSH Q12H [facility] Last Admin: 03/19/22 22:14 Dose: 40 mg Documented by: ARJUN Metoprolol Tartrate (Metoprolol Tartrate 50 Mg Tablet) 50 mg PO BID [facility]; Protocol Last Admin: 03/19/22 21:17 Dose: 50 mg Documented by: ARJUN Omeprazole (Omeprazole 20 Mg Capsule.) 20 mg PO DAILY [facility] Last Admin: 03/19/22 08:05 Dose: 20 mg Documented by: ANCELMO Ondansetron HCl (Ondansetron Hcl 4 Mg/2 Ml Vial) 4 mg IVPUSH Q8H PRN PRN Reason: Nausea and Vomiting Pharmacy Consult (Consult Rx Perform Med Rec) 1 each MISCELLANE ONCE PRN PRN Reason: Consult order Sertraline HCl (Sertraline Hcl 100 Mg Tablet) 100 mg PO DAILY [facility] Last Admin: 03/19/22 08:05 Dose: 100 mg Documented by: ANCELMO Sodium Chloride (0.9 % Sodium Chloride Flush 3 Ml Syringe) 3 ml IVFLUSH QSHIFT [facility] Last Admin: 03/19/22 22:21 Dose: 3 ml Documented by: ARJUN Tramadol HCl (Tramadol Hcl 50 Mg Tablet) 50 mg PO DAILY [facility] Last Admin: 03/19/22 08:06 Dose: 50 mg Documented by: HO.COTEMA Labs CBC & Chem 7: 03/20/22 05:14 03/20/22 05:14 Labs: Laboratory Results - last 24 hr 03/17/22 03/18/22 03/18/22 18:11 05:14 07:32 MCV MCH MCHC RDW Plt Count MPV Immature Gran % (Auto) Neut % (Auto) Lymph % (Auto) [place] % (Auto) Eos % (Auto) Baso % (Auto) Lymph # (Auto) [place] # (Auto) Eos # (Auto) Baso # (Auto) Abs Immat Gran (auto) Absolute Neuts (auto) Absolute Nucleated RBC Nucleated RBC % (auto) Smear Tech's Comments Sodium 136 130 L 131 L Anion Gap Estim Creat Clear Calc Estimated GFR POC Glucose Fasting Glucose Calcium Total Bilirubin AST ALT Alkaline Phosphatase Total Protein Albumin 03/18/22 03/19/22 03/19/22 13:16 06:07 11:35 MCV MCH MCHC RDW Plt Count MPV Immature Gran % (Auto) Neut % (Auto) Lymph % (Auto) [place] % (Auto) Eos % (Auto) Baso % (Auto) Lymph # (Auto) [place] # (Auto) Eos # (Auto) Baso # (Auto) Abs Immat Gran (auto) Absolute Neuts (auto) Absolute Nucleated RBC Nucleated RBC % (auto) Smear Tech's Comments Sodium 131 L 132 L Anion Gap Estim Creat Clear Calc Estimated GFR POC Glucose 186 H Fasting Glucose Calcium Total Bilirubin AST ALT Alkaline Phosphatase Total Protein Albumin 03/19/22 03/19/22 03/20/22 15:38 19:40 05:14 MCV 78.0 L MCH 24.4 L MCHC 31.4 RDW 15.7 Plt Count 257 MPV 10.7 Immature Gran % (Auto) 6.5 H Neut % (Auto) 82.7 H Lymph % (Auto) 7.8 L [place] % (Auto) 2.8 Eos % (Auto) 0.0 Baso % (Auto) 0.2 Lymph # (Auto) 1.0 L [place] # (Auto) 0.4 Eos # (Auto) 0.0 Baso # (Auto) 0.0 Abs Immat Gran (auto) 0.85 H Absolute Neuts (auto) 10.9 H Absolute Nucleated RBC 0.000 Nucleated RBC % (auto) 0.0 Smear Tech's Comments VERIFIED Sodium Anion Gap Estim Creat Clear Calc Estimated GFR POC Glucose 371 H* 395 H* Fasting Glucose Calcium Total Bilirubin AST ALT Alkaline Phosphatase Total Protein Albumin 03/20/22 03/20/22 05:14 07:16 MCV MCH MCHC RDW Plt Count MPV Immature Gran % (Auto) Neut % (Auto) Lymph % (Auto) [place] % (Auto) Eos % (Auto) Baso % (Auto) Lymph # (Auto) [place] # (Auto) Eos # (Auto) Baso # (Auto) Abs Immat Gran (auto) Absolute Neuts (auto) Absolute Nucleated RBC Nucleated RBC % (auto) Smear Tech's Comments Sodium 132 L Anion Gap 14 Estim Creat Clear Calc 32.0 Estimated GFR 34 POC Glucose 379 H* Fasting Glucose 421 H* Calcium 9.2 Total Bilirubin 0.5 AST 14 ALT 19 Alkaline Phosphatase 133 H Total Protein 7.3 Albumin 3.8 Assessment and Plan (1) Asthma with acute exacerbation: Status: Acute (2) THANH (acute kidney injury): Status: Acute (3) Diabetes: Status: Acute Plan 56-year-old female with history of asthma presents to the hospital with asthma exacerbation to have pneumonia and hypoxia 1.Acute asthma exacerbation(secondary to CAP) -ceftriaxone/azithromycin -pulse dose steroids -nebs q.4 hours p.r.n. -supplemental O2; titrate for sats greater than equal to 92% -pulmonary consult 2. THANH(w/hyponatremia...hyperkalemia) -volume repletion (hyponatremia; corrects to 137) -insulin/calcium gluconate/nebs (hyperkalemia) -follow renals/divalents -renal consult 3.Diabetes II(poorly controlled) - hold metformin until creatinine normalizes - lispro correctional scale - diabetic diet 4.Depression anxiety - continue mood stabilizers Heparin subQ Full code Patient requires ongoing hospitalization for treatment of community-acquired pneumonia with IV antibiotics and steroids for asthma exacerbation. Quality Stroke Does the patient have a stroke diagnosis?: No VTE Prior VTE?: No VTE Risk Level:: Medical - moderate - high VTE Device Contraindication: Treatment Not Indicated VTE Drug Contraindication: N/A - Med Ordered
[2022-03-20 11:41] LABS: Glucose, Whole Blood 194 mg/dL (60-115)
--- NOTE | 2022-03-20 12:28 | PM.CNPUL ---
History of Present Illness History of Present Illness Consult date: 03/20/22 Chief complaint: asthma exacerbation, CAP Narrative: This is an inpatient pulmonary consultation. This is a 56-year-old female with past medical history of tobacco dependedncy,diabetes, hypertension, asthma, anxiety and depression, presents the hospital with complaints of shortness of breath for the past 1 week.? Patient reports cough, some sputum production, no fever some chills, no chest pain, no abdominal pain, no nausea or vomiting, no diarrhea constipation, no urinary symptoms.? She reports that she has been trying to use her rescue inhaler with no relief. On arrival to the ED patient noted to have a slight tachycardia, as well as hypoxic 88% on room air. COVID-19 and influenza negative. CXR personally reviewed by me with areas of patchy opacities consistent with bronchopneumonia. She has been slow to improve, still on oxygen supplementation. Review of Systems Review of Systems: Constitutional: No Fever, No Chills, No Fatigue, No Malaise ENT/Mouth: No Ear Pain, No Nasal Congestion, No Sinus Pain, No Hoarseness, No sore throat, No Rhinorrhea, No Swallowing Difficulty Eyes: No Eye Pain, No Swelling, No Redness Cardiovascular: + Chest discomfort when coughing, + SOB, No Dyspnea on Exertion, No Orthopnea, No Edema, No Palpitations Respiratory: + Cough, No Sputum, + Wheezing, No Smoke Exposure, No Dyspnea Gastrointestinal: No Nausea, No Vomiting, No Diarrhea, No Constipation, No Abdominal pain Genitourinary: No Dysuria, No Urinary Frequency, No Urinary Flow Changes Musculoskeletal: No joint pain, No Myalgias, No Joint Swelling Skin: No Skin Lesions, No rash Neuro: No Weakness, No Loss of Consciousness, No Dizziness, No Headache Yes all other systems are reviewed and are negative [facility] Past Medical History Medical History (Updated 03/20/22 @ 12:33 by Shree Gallo MD) Acute anxiety Arthritis Asthma Depression Diabetic acidosis, type II GERD (gastroesophageal reflux disease) HTN (hypertension) Hx of renal calculi On beta mariaelena at home Right knee injury Tobacco dependence Family History Family History Other No family history of coronary artery disease Surgical History Surgical History History of hysterectomy Hx of arthroscopy of right knee Hx of cystoscopy Social History Social History Household Members: None Housing: Apartment Patient Tobacco Use Status: Never used Tobacco Tobacco use type: Cigarette Cigarettes Per Day: 4 Smoked in Last 30 Days: Yes Patient Interested in Nicotine Replacement: Yes Patient Given Instructions on How to Stop Smoking: Yes Date Education Initiated: 03/18/22 Second Hand Smoke Exposure: No Use of substances other than those prescribed or required for medical reasons: No Currently Displaying Signs/Symptoms of Drug Intoxication Withdrawal: No Have you been hit, kicked, punched, or otherwise hurt by someone within the past year? If so, by whom?: No Do you feel safe in your current relationship?: No Is there a partner from a previous relationship who is making you feel unsafe now?: No Are you made to feel afraid or neglected: No Advance Directives: No Advance Directives Information Provided: No Do you have thoughts of harming others: None Do you have a plan to hurt others: No Plan Recently lost weight without trying: No Eating poorly because of decreased appetite: No Nutrition Risks: No Nutritional Risk service: No Current occupational status: employed Meds Allergies Allergy/AdvReac Type Severity Reaction Status Date / Time aspirin [Aspirin] Allergy Intermediate EYES Verified 03/17/22 16:02 SWELLING Penicillins Allergy Intermediate RASH Verified 03/17/22 16:02 citalopram Allergy Unknown chest pain Verified 03/17/22 16:02 Diltiazem HCl Allergy Unknown Unknown Uncoded 03/17/22 16:02 Active Medications: Current Medications Acetaminophen (Acetaminophen 325 Mg Tablet) 650 mg PO Q6H PRN PRN Reason: Pain, Mild (Pain Scale 1-3) Last Admin: 03/18/22 15:18 Dose: 650 mg Documented by: Acetaminophen/Butalbital/Caffeine (Butalb/Acetamin/Caff 50/325/40 Tablet) 1 tab PO Q4H PRN PRN Reason: Headache Last Admin: 03/19/22 23:17 Dose: 1 tab Documented by: Albuterol/Ipratropium (Albuterol/Iprat 2.5/0.5mg 3 Ml Ampul.Neb) 3 ml INHALE RQ4H PRN PRN Reason: Shortness of Breath/Wheezing Albuterol/Ipratropium (Albuterol/Iprat 2.5/0.5mg 3 Ml Ampul.Neb) 3 ml INHALE RQ4H WHILE AWAKE [facility] Last Admin: 03/20/22 11:06 Dose: 3 ml Documented by: Amitriptyline HCl (Amitriptyline Hcl 50 Mg Tablet) 50 mg PO DAILY [facility] Last Admin: 03/20/22 09:36 Dose: 50 mg Documented by: Benzonatate (Benzonatate 100 Mg Capsule) 200 mg PO TID PRN PRN Reason: cough Last Admin: 03/19/22 16:00 Dose: 200 mg Documented by: Clonidine HCl (Clonidine Hcl 0.1 Mg Tablet) 0.1 mg PO BEDTIME [facility]; Protocol Last Admin: 03/19/22 21:17 Dose: 0.1 mg Documented by: Cyanocobalamin (Cyanocobalamin (Vitamin B-12) 1,000 Mcg Tablet) 1,000 mcg PO DAILY [facility] Last Admin: 03/20/22 09:36 Dose: 1,000 mcg Documented by: Dextrose (Dextrose 50 % 25 Gm/50 Ml Syringe) 25 gm IVPUSH Q15M PRN; Protocol PRN Reason: per Hypoglycemia Standing Ord. Docusate Sodium (Docusate Sodium 100 Mg Capsule) 100 mg PO DAILY PRN PRN Reason: Constipation Ergocalciferol (Ergocalciferol (Vitamin D2) 1,250 Mcg Capsule) 1,250 mcg PO [place] [facility] Last Admin: 03/19/22 06:33 Dose: 1,250 mcg Documented by: Ferrous Sulfate (Ferrous Sulfate 324 Mg Tablet.Dr) 324 mg PO BID [facility] Last Admin: 03/20/22 09:36 Dose: 324 mg Documented by: Glucose (Glucose Gel 15 Gm Gel..Gram.) 15 gm PO Q15M PRN; Protocol PRN Reason: per Hypoglycemia Standing Ord. Guaifenesin/Dextromethorphan (Guaifenesin Dm 100/10/5 Ml 5 Ml Syrup) 5 ml PO Q4H PRN PRN Reason: cough Last Admin: 03/20/22 03:31 Dose: 5 ml Documented by: Guaifenesin/Dextromethorphan (Guaifenesin Dm 600/30 1 Tab Tab.Er.12h) 2 tab PO BID [facility] Heparin Sodium (Porcine) (Heparin Sodium,Porcine 5,000 Unit/Ml Vial) 5,000 unit SUBCUT Q12H [facility] Last Admin: 03/20/22 09:37 Dose: 5,000 unit Documented by: Hydroxyzine HCl (Hydroxyzine Hcl 50 Mg Tablet) 50 mg PO BEDTIME [facility] Last Admin: 03/19/22 21:17 Dose: 50 mg Documented by: Ceftriaxone Sodium 1 gm/ (Sodium Chloride) 50 mls @ 100 mls/hr IV Q24H [facility] Last Infusion: 03/20/22 00:18 Dose: Infused Documented by: Doxycycline Hyclate 100 mg/ (Sodium Chloride) 250 mls @ 166.67 mls/hr IV Q12H [facility] Insulin Human Lispro (Insulin Lispro 100 Unit/Ml 3 Ml Vial) 0 unit SUBCUT QIDACHS [facility]; Protocol Last Admin: 03/20/22 12:05 Dose: 2 unit Documented by: Levalbuterol HCl (Levalbuterol Hcl 1.25 Mg/0.5 Ml Vial.[place]) 1.25 mg INHALE Q4H PRN PRN Reason: Shortness of Breath Methylprednisolone Sodium Succinate (Methylprednisolone Sod Succ 40 Mg/Ml Vial) 60 mg IVPUSH Q8H [facility] Metoprolol Tartrate (Metoprolol Tartrate 50 Mg Tablet) 50 mg PO BID [facility]; Protocol Last Admin: 03/20/22 09:36 Dose: 50 mg Documented by: Omeprazole (Omeprazole 20 Mg Capsule.) 20 mg PO DAILY [facility] Last Admin: 03/20/22 09:36 Dose: 20 mg Documented by: Ondansetron HCl (Ondansetron Hcl 4 Mg/2 Ml Vial) 4 mg IVPUSH Q8H PRN PRN Reason: Nausea and Vomiting Pharmacy Consult (Consult Rx Perform Med Rec) 1 each MISCELLANE ONCE PRN PRN Reason: Consult order Sertraline HCl (Sertraline Hcl 100 Mg Tablet) 100 mg PO DAILY [facility] Last Admin: 03/20/22 09:36 Dose: 100 mg Documented by: Sodium Chloride (0.9 % Sodium Chloride Flush 3 Ml Syringe) 3 ml IVFLUSH QSHIFT [facility] Last Admin: 03/20/22 09:37 Dose: 3 ml Documented by: Tramadol HCl (Tramadol Hcl 50 Mg Tablet) 50 mg PO DAILY [facility] Last Admin: 03/20/22 09:36 Dose: 50 mg Documented by: Home Medications Medication Instructions Recorded Confirmed Last Taken Type amitriptyline 50 mg tablet 50 mg PO DAILY 08/03/21 03/17/22 03/17/22 History lisinopril 40 mg tablet 40 mg PO DAILY 08/03/21 03/17/22 03/17/22 History omeprazole 20 mg capsule,delayed 20 mg PO DAILY 08/03/21 03/17/22 03/17/22 History release sertraline 100 mg tablet 100 mg PO DAILY 08/03/21 03/17/22 03/17/22 History tramadol 50 mg tablet 50 mg PO DAILY 08/03/21 03/17/22 03/17/22 History levalbuterol tartrate 45 2 puff PO Q6H 09/14/21 03/17/22 03/17/22 History mcg/actuation aerosol inhaler (Xopenex HFA) clonidine HCl 0.1 mg tablet 1 tab PO BEDTIME 03/17/22 03/17/22 03/16/22 History cyanocobalamin (vitamin B-12) 1 tab PO DAILY 03/17/22 03/17/22 03/16/22 History 1,000 mcg tablet dapagliflozin 10 mg tablet 1 tab PO DAILY 03/17/22 03/17/22 03/17/22 History (Farxiga) ergocalciferol (vitamin D2) 1,250 1 cap PO [place] 03/17/22 03/17/22 03/12/22 History mcg (50,000 unit) capsule ferrous sulfate 325 mg (65 mg 1 tab PO BID 03/17/22 03/17/22 03/17/22 History iron) tablet (FeroSul) hydroxyzine pamoate 50 mg capsule 1 cap PO BEDTIME 03/17/22 03/17/22 03/17/22 History metformin 500 mg tablet,extended 1 tab PO BID 03/17/22 03/17/22 03/17/22 History release 24 hr metoprolol tartrate 50 mg tablet 1 tab PO BID 03/17/22 03/17/22 03/17/22 History Physical Exam Vital Signs: Vital Signs: Last Vital Signs Temp 97.9 F 03/20/22 11:27 Pulse 70 03/20/22 11:27 Resp 18 03/20/22 11:27 BP 130/77 03/20/22 11:27 Pulse Ox 94 03/20/22 11:27 BMI result Body Mass Index 23.1 Const: General: alert Neck: Neck: Yes normal visual inspection, Yes full ROM and Yes no lymphadenopathy Chest: Chest palpation & inspection: normal inspection of the chest Resp: Auscultation: rhonchi, wheezes and diminished lung sounds Cardio: Rate: regular rate Rhythm: regular rhythm Heart sounds: S1 normal heart sound present and S2 normal heart sound present GI: Palpation (GI): Soft to palpation and nontender Auscultation: normal bowel sounds Skin: General skin exam: rashes and/or lesions noted Results Laboratory Findings CBC and BMP: 03/20/22 05:14 03/20/22 05:14 Abnormal lab findings: Abnormal Labs 03/17/22 03/17/22 03/18/22 18:11 18:11 05:14 WBC Hgb 11.9 L MCV 78.4 L 76.5 L MCH 24.3 L 23.9 L Immature Gran % (Auto) 0.8 H Neut % (Auto) 91.7 H Lymph % (Auto) 6.8 L [place] % (Auto) 0.6 L Lymph # (Auto) 0.6 L Abs Immat Gran (auto) 0.04 H 0.08 H Absolute Neuts (auto) 8.7 H Sodium Potassium Carbon Dioxide BUN 21 H Creatinine 1.47 H POC Glucose Random Glucose 270 H Fasting Glucose Alkaline Phosphatase 162 H 03/18/22 03/18/22 03/18/22 05:14 07:16 07:32 WBC Hgb MCV MCH Immature Gran % (Auto) Neut % (Auto) Lymph % (Auto) [place] % (Auto) Lymph # (Auto) Abs Immat Gran (auto) Absolute Neuts (auto) Sodium 130 L 131 L Potassium 6.0 H* D 6.0 H* Carbon Dioxide 19 L 19 L BUN 30 H 30 H Creatinine 1.70 H 1.60 H POC Glucose 438 H* Random Glucose 540 H* 495 H* Fasting Glucose Alkaline Phosphatase 03/18/22 03/18/22 03/18/22 08:57 10:18 11:05 WBC Hgb MCV MCH Immature Gran % (Auto) Neut % (Auto) Lymph % (Auto) [place] % (Auto) Lymph # (Auto) Abs Immat Gran (auto) Absolute Neuts (auto) Sodium Potassium Carbon Dioxide BUN Creatinine POC Glucose 352 H* 290 H 356 H* Random Glucose Fasting Glucose Alkaline Phosphatase 03/18/22 03/18/22 03/18/22 13:16 15:29 16:19 WBC Hgb MCV MCH Immature Gran % (Auto) Neut % (Auto) Lymph % (Auto) [place] % (Auto) Lymph # (Auto) Abs Immat Gran (auto) Absolute Neuts (auto) Sodium 131 L Potassium 5.2 H Carbon Dioxide 20 L BUN 29 H Creatinine 1.53 H POC Glucose 352 H* 313 H Random Glucose 448 H* Fasting Glucose Alkaline Phosphatase 03/18/22 03/19/22 03/19/22 19:45 06:07 06:07 WBC 13.0 H Hgb 11.7 L MCV 76.7 L MCH 23.9 L Immature Gran % (Auto) 1.5 H Neut % (Auto) 88.9 H Lymph % (Auto) 7.4 L [place] % (Auto) Lymph # (Auto) 1.0 L Abs Immat Gran (auto) 0.19 H Absolute Neuts (auto) 11.6 H Sodium 132 L Potassium 5.8 H Carbon Dioxide BUN 33 H Creatinine 1.69 H POC Glucose 290 H Random Glucose Fasting Glucose 422 H* Alkaline Phosphatase 133 H 03/19/22 03/19/22 03/19/22 07:11 11:35 15:38 WBC Hgb MCV MCH Immature Gran % (Auto) Neut % (Auto) Lymph % (Auto) [place] % (Auto) Lymph # (Auto) Abs Immat Gran (auto) Absolute Neuts (auto) Sodium Potassium Carbon Dioxide BUN Creatinine POC Glucose 374 H* 186 H 371 H* Random Glucose Fasting Glucose Alkaline Phosphatase 03/19/22 03/20/22 03/20/22 19:40 05:14 05:14 WBC 13.1 H Hgb MCV 78.0 L MCH 24.4 L Immature Gran % (Auto) 6.5 H Neut % (Auto) 82.7 H Lymph % (Auto) 7.8 L [place] % (Auto) Lymph # (Auto) 1.0 L Abs Immat Gran (auto) 0.85 H Absolute Neuts (auto) 10.9 H Sodium 132 L Potassium 5.7 H Carbon Dioxide BUN 35 H Creatinine 1.57 H POC Glucose 395 H* Random Glucose Fasting Glucose 421 H* Alkaline Phosphatase 133 H 03/20/22 03/20/22 07:16 11:29 WBC Hgb MCV MCH Immature Gran % (Auto) Neut % (Auto) Lymph % (Auto) [place] % (Auto) Lymph # (Auto) Abs Immat Gran (auto) Absolute Neuts (auto) Sodium Potassium Carbon Dioxide BUN Creatinine POC Glucose 379 H* 194 H Random Glucose Fasting Glucose Alkaline Phosphatase Assessment and Plan (1) Asthma with acute exacerbation: Status: Acute (2) Bronchopneumonia: Status: Acute (3) Acute respiratory failure with hypoxia: Status: Acute (4) Tobacco dependence: Status: Acute Plan Start CPT with acapella Mucinex DM Continue CTX, start Doxy Increase Solumedrol 60 q8 Oxygen to keep pox >90% Procedures Date of Service Date of Service: 03/20/22
[2022-03-20] MEDS: methylPREDNISolone Sod Succ 40 MG/ML VIAL 60 MG IVPUSH ×2 (14:05→19:50)
[2022-03-20] MEDS: Doxycycline Hyclate 100 MG in 0.9 % Sodium Chloride 250 ML 166.67 MG IV (14:06)
[2022-03-20] MEDS: Butalb/Acetamin/Caff 50/325/40 TABLET 1 TAB PO ×2 (14:17→19:49)
[2022-03-20 16:46] LABS: Glucose, Whole Blood 439 mg/dL (60-115)
[2022-03-20 19:55] LABS: Glucose, Whole Blood 363 mg/dL (60-115)
[2022-03-20] MEDS: cloNIDine HCL 0.1 MG TABLET PO (21:37)
[2022-03-20] MEDS: guaiFENesin DM 600/30 1 TAB TAB.ER.12H 2 TAB PO (21:38)
[2022-03-20] MEDS: hydrOXYzine HCL 50 MG TABLET PO (21:38)
[2022-03-20] MEDS: cefTRIAXone sodium 1 GM in 0.9 % Sodium Chloride 50 ML IV (21:45)
[2022-03-20] MEDS: Benzonatate 100 MG CAPSULE 200 MG PO (23:15)
[2022-03-20 23:24] LABS: Appearance Urine CLEAR; Color Urine YELLOW; Glucose Urine UA >=1000 MG/DL (NEG); Leukocyte Esterase Urine NEG (NEG); Nitrite Urine NEG (NEG); Urine Blood NEG (NEG); Urine Ketones NEG (NEG); Urine Protein NEG (NEG-TRACE)
[2022-03-20 23:39] LABS: Bacteria Urine TRACE /LPF; RBC Urine 0-2 /HPF (0); Squamous Epithelial Cell Urine TRACE /LPF; WBC Urine 0-2 /HPF (0-4)
[2022-03-21] VITALS (11 sets, daily range): BP systolic 118–170; BP diastolic 76–97; PULSE 62–87; RESP 14–18; TEMP 36.1–36.6; O2SAT 92–99
[2022-03-21] MEDS: Doxycycline Hyclate 100 MG in 0.9 % Sodium Chloride 250 ML 166.67 MG IV ×2 (01:09→13:04)
[2022-03-21] MEDS: 0.9 % Sodium Chloride Flush 3 ML SYRINGE IVFLUSH ×4 (01:09→20:12)
[2022-03-21] MEDS: methylPREDNISolone Sod Succ 40 MG/ML VIAL 60 MG IVPUSH ×3 (05:25→20:02)
[2022-03-21 06:05] LABS: Basophils Percent Auto 0.2 % (0-2); Hematocrit 38.8 % (37.0-47.0); Hemoglobin 12.2 g/dl (12.0-16.0); Imm Gran Abs Auto 0.67 X10*3/uL (0.00-0.03); Imm Gran Pct Auto 6.3 % (0.0-0.4); Lymphocytes Absolute Auto 1.3 X10*3/uL (1.2-4.9); Lymphocytes Percent Auto 12.6 % (20-40); Mean Corpuscular HGB Conc 31.4 g/dl (31.0-35.0); Mean Corpuscular Volume 76.4 fL (80.0-98.0); Monocytes Absolute Auto 0.5 X10*3/uL (0.1-1.2); Monocytes Percent Auto 4.7 % (2-11); Neutrophils Absolute Auto 8.1 x10*3/uL (2.0-8.3); Neutrophils Percent Auto 76.2 % (45-73); Platelet Count 242 X10*3/uL (160-400); Red Blood Count 5.08 X10*6/uL (4.20-5.50); Red Cell Distribution Width 15.4 % (11.0-16.0); SCAN SMEAR FLAG 1; White Blood Count 10.6 X10*3/uL (4.8-10.8)
[2022-03-21 06:08] LABS: MANUAL DIFF FLAG SCAN
[2022-03-21 06:23] LABS: Alanine Aminotransferase 20 U/L (0-31); Albumin Level 3.8 g/dL (3.5-5.0); Alkaline Phosphatase 129 U/L (39-117); Anion Gap 13 (12-20); Aspartate Amino Transferase 16 U/L (5-31); Bilirubin Total 0.4 mg/dL (0.0-1.0); Blood Urea Nitrogen 32 mg/dL (9-16); Calcium 9.5 mg/dL (8.4-10.2); Carbon Dioxide 24 mmol/L (22-29); Chloride 100 mmol/L (96-108); Creatinine Clr Calc Pharmacy 34.6; Estimated Glomerular Filt Rate 37; Potassium 5.4 mmol/L (3.3-5.1); Sodium 132 mmol/L (135-145); Total Protein 7.2 g/dL (6.5-8.0)
[2022-03-21 06:25] LABS: SLIDE REVIEW VERIFIED
[2022-03-21 06:36] LABS: Glucose Fasting 391 mg/dL (60-99)
[2022-03-21] MEDS: Insulin Lispro 100 UNIT/ML 3 ML VIAL SUBCUT ×4 (06:41→20:02)
[2022-03-21] MEDS: Albuterol/Iprat 2.5/0.5MG 3 ML AMPUL.NEB INHALE ×4 (07:03→20:03)
[2022-03-21 08:15] LABS: Glucose, Whole Blood 316 mg/dL (60-115)
--- NOTE | 2022-03-21 09:14 | MHC.CDI.CONC ---
CDI Concurrent Query Documentation Clarification: PHYSICIAN'S DOCUMENTATION REQUEST Date of Query: 03/21/22913 Patient Name: Lakshmi Das Admit Date: 03/17/22 Dear Doctor, A review of the medical record indicates additional documentation may be needed. Please review below and update the documentation accordingly. Clinical Indicators: Risk Factors/Clinical Indicators/Treatments H&P: 03/18 - Assessment/plan: Acute hypoxic respiratory failure 2nd to asthma exacerbation/CAP. Treat with O2 as requested, RR Room air to 2 liters NC with pulse ox 94%. Steroids, nebs q. 4 hrs. p.r.n., Supplemental O2. Recognized standard criteria for respiratory failure includes: (Source: [facility] Hospitalist Sep 2013) ABGs (1 or more) Symptoms: ? PO2 <60 or RA SpO2 <91% ? Tachypnea, SOB, dyspnea ? PcO2 >50 and pH <7.35 ? Pallor or cyanosis ? pO2 decrease or pcO2 increase ? Anxiety or restlessness by 10 mm/Hg from baseline if known ? Use of accessory muscles ? Retractions (grunting in newborns) ? Unable to speak in complete sentences P/F ratio < 300 Supplemental O2 requirement of 40% or more Intubation is not required Based on the above information and the recognized standard for respiratory failure could you please verify this diagnoses is still accurate and reflective of the patient?s condition to ensure quality of the medical record. Please clarify in the Progress Notes: Consistency and clarity of documentation within the medical record: Respiratory failure is/was present and is a clinical diagnosis based on (please include this additional support in the medical record) After study respiratory failure has been ruled out Other (please specify) Unable to determine Use of terms such as suspected, likely, concern for, or probable (associated with a specific diagnosis that is being evaluated, monitored, or treated as if it exists) are acceptable and can be coded in the inpatient setting, when documented at the time of discharge. Thank you, Haritha Stoll [facility], CDIS Extension: [phone] Please use your independent medical judgment in providing your response. THIS QUERY IS PART OF THE PERMANENT MEDICAL RECORD Provider Response: Other Other Diagnosis: Acute hypoxic respiratory failure was present based on a clinical diagnosis of pneumonia
--- NOTE | 2022-03-21 09:17 | P.PNPL_ITS ---
Subjective Subjective Date of Service: 03/21/22 Interval history: The patient was seen on exam. Feeling a little better. Still coughing. Continues on the IV antibiotics and also methylprednisone. Open she is feeling better by tomorrow to be able to go home. She still on the oxygen peterson pplementation. She will have to have a titration study done to see if she needs oxygen at home. Objective Data Labs CBC & Chem 7: 03/21/22 05:16 03/21/22 05:16 Labs: Laboratory Results - last 24 hr 03/20/22 03/20/22 03/20/22 11:29 16:42 19:38 WBC RBC Hgb Hct MCV MCH MCHC RDW Plt Count MPV Immature Gran % (Auto) Neut % (Auto) Lymph % (Auto) [place] % (Auto) Eos % (Auto) Baso % (Auto) Lymph # (Auto) [place] # (Auto) Eos # (Auto) Baso # (Auto) Abs Immat Gran (auto) Absolute Neuts (auto) Absolute Nucleated RBC Nucleated RBC % (auto) Smear Tech's Comments Sodium Potassium Chloride Carbon Dioxide Anion Gap BUN Creatinine Estim Creat Clear Calc Estimated GFR POC Glucose 194 H 439 H* 363 H* Fasting Glucose Calcium Total Bilirubin AST ALT Alkaline Phosphatase Total Protein Albumin Urine Color Urine Appearance Urine pH Ur Specific [place] Urine Protein Urine Glucose (UA) Urine Ketones Urine Blood Urine Nitrite Ur Leukocyte Esterase Urine RBC Urine WBC Ur Squamous Epith Cells Urine Bacteria 03/20/22 03/21/22 03/21/22 23:19 05:16 05:16 WBC 10.6 RBC 5.08 Hgb 12.2 Hct 38.8 MCV 76.4 L MCH 24.0 L MCHC 31.4 RDW 15.4 Plt Count 242 MPV 10.0 Immature Gran % (Auto) 6.3 H Neut % (Auto) 76.2 H Lymph % (Auto) 12.6 L [place] % (Auto) 4.7 Eos % (Auto) 0.0 Baso % (Auto) 0.2 Lymph # (Auto) 1.3 [place] # (Auto) 0.5 Eos # (Auto) 0.0 Baso # (Auto) 0.0 Abs Immat Gran (auto) 0.67 H Absolute Neuts (auto) 8.1 Absolute Nucleated RBC 0.000 Nucleated RBC % (auto) 0.0 Smear Tech's Comments VERIFIED Sodium 132 L Potassium 5.4 H Chloride 100 Carbon Dioxide 24 Anion Gap 13 BUN 32 H Creatinine 1.45 H Estim Creat Clear Calc 34.6 Estimated GFR 37 POC Glucose Fasting Glucose 391 H* Calcium 9.5 Total Bilirubin 0.4 AST 16 ALT 20 Alkaline Phosphatase 129 H Total Protein 7.2 Albumin 3.8 Urine Color YELLOW Urine Appearance CLEAR Urine pH 6.0 Ur Specific [place] 1.010 Urine Protein NEG Urine Glucose (UA) >=1000 H Urine Ketones NEG Urine Blood NEG Urine Nitrite NEG Ur Leukocyte Esterase NEG Urine RBC 0-2 Urine WBC 0-2 Ur Squamous Epith Cells TRACE Urine Bacteria TRACE 03/21/22 07:27 WBC RBC Hgb Hct MCV MCH MCHC RDW Plt Count MPV Immature Gran % (Auto) Neut % (Auto) Lymph % (Auto) [place] % (Auto) Eos % (Auto) Baso % (Auto) Lymph # (Auto) [place] # (Auto) Eos # (Auto) Baso # (Auto) Abs Immat Gran (auto) Absolute Neuts (auto) Absolute Nucleated RBC Nucleated RBC % (auto) Smear Tech's Comments Sodium Potassium Chloride Carbon Dioxide Anion Gap BUN Creatinine Estim Creat Clear Calc Estimated GFR POC Glucose 316 H Fasting Glucose Calcium Total Bilirubin AST ALT Alkaline Phosphatase Total Protein Albumin Urine Color Urine Appearance Urine pH Ur Specific [place] Urine Protein Urine Glucose (UA) Urine Ketones Urine Blood Urine Nitrite Ur Leukocyte Esterase Urine RBC Urine WBC Ur Squamous Epith Cells Urine Bacteria Review of Systems Review of Systems Constitutional: No Fever, No Chills, No Fatigue, No Malaise ENT/Mouth: No Ear Pain, No Nasal Congestion, No Sinus Pain, No Hoarseness, No sore throat, No Rhinorrhea, No Swallowing Difficulty Eyes: No Eye Pain, No Swelling, No Redness Cardiovascular: + Chest discomfort when coughing, + SOB, No Dyspnea on Exertion, No Orthopnea, No Edema, No Palpitations Respiratory: + Cough, No Sputum, + Wheezing, No Smoke Exposure, No Dyspnea Gastrointestinal: No Nausea, No Vomiting, No Diarrhea, No Constipation, No Abdominal pain Genitourinary: No Dysuria, No Urinary Frequency, No Urinary Flow Changes Musculoskeletal: No joint pain, No Myalgias, No Joint Swelling Skin: No Skin Lesions, No rash Neuro: No Weakness, No Loss of Consciousness, No Dizziness, No Headache Yes all other systems are reviewed and are negative Physical Exam Vital Signs: Vital Signs: Last Vital Signs Temp 97.8 F 03/21/22 07:29 Pulse 75 03/21/22 07:29 Resp 18 03/21/22 07:29 BP 118/78 03/21/22 07:29 Pulse Ox 93 03/21/22 03:31 BMI result Body Mass Index 23.1 Const: General: alert HEENT: General nose exam: Abnormal external nose present and Nasal discharge present Chest: Chest palpation & inspection: normal inspection of the chest Resp: Auscultation: rhonchi and diminished lung sounds Cardio: Rate: regular rate Rhythm: regular rhythm Heart sounds: S1 normal heart sound present and S2 normal heart sound present GI: Palpation (GI): Soft to palpation and nontender Auscultation: normal bowel sounds Skin: General skin exam: rashes and/or lesions noted Procedures Date of Service Date of Service: 03/21/22 Assessment and Plan Assessment and plan (1) Tobacco dependence: Status: Acute (2) Bronchopneumonia: Status: Acute (3) Acute respiratory failure with hypoxia: Status: Acute (4) Asthma with acute exacerbation: Status: Acute Plan Continue IV antibiotics for 1 more day then hopefully switch over to p.o. to finish regimen at home Continue IV Solu-Medrol today switched over to p.o. tomorrow if doing better CPT with flutter valve. The patient has not had her Acapella valve delivered as of yet. Tobacco cessation Titrate the oxygen to maintain a pulse ox above 90% hopefully the patient can wean off prior to discharge I will arrange follow-up as an outpatient in our pulmonary practice. Time Spent With Patient Time: Total time spent is greater than 50% in coordination of care (as documented) at patient's floor/unit and/or counseling patient: Progress Note: Quality Stroke Does the patient have a stroke diagnosis?: No
[2022-03-21] MEDS: Cyanocobalamin (Vitamin B-12) 1,000 MCG TABLET 1000 MCG PO (09:37)
[2022-03-21] MEDS: traMADoL HCL 50 MG TABLET PO (09:37)
[2022-03-21] MEDS: Sertraline HCL 100 MG TABLET PO (09:37)
[2022-03-21] MEDS: Omeprazole 20 MG CAPSULE.DR PO (09:38)
[2022-03-21] MEDS: Amitriptyline HCl 50 MG TABLET PO (09:38)
[2022-03-21] MEDS: Metoprolol Tartrate 50 MG TABLET PO ×2 (09:38→20:02)
[2022-03-21] MEDS: Ferrous Sulfate 324 MG TABLET.DR PO ×2 (09:38→20:02)
[2022-03-21] MEDS: guaiFENesin DM 600/30 1 TAB TAB.ER.12H 2 TAB PO ×2 (09:39→20:01)
[2022-03-21] MEDS: Butalb/Acetamin/Caff 50/325/40 TABLET 1 TAB PO (10:58)
[2022-03-21] MEDS: Heparin Sodium,Porcine 5,000 UNIT/ML VIAL 5000 UNIT SUBCUT (11:00)
[2022-03-21 11:37] LABS: Glucose, Whole Blood 356 mg/dL (60-115)
--- NOTE | 2022-03-21 12:09 | P.PNIM_ITS ---
Subjective Subjective Date of Service: 03/21/22 Interval History: Still short of breath with productive cough Review of Systems Denies chest pain Admits to exertional shortness of breath; also shortness of breath at rest Denies nausea vomiting diarrhea Admits headache Denies fever chills Physical Exam Vital Signs: Vital Signs: Last Vital Signs Temp 97.2 F 03/21/22 10:51 Pulse 67 03/21/22 10:53 Resp 18 03/21/22 10:53 BP 170/86 H 03/21/22 10:51 Pulse Ox 92 03/21/22 10:51 BMI result Body Mass Index 23.1 Const: Other: Awake alert in no acute distress. Able to speak in full sentences Chest: Other: No retractions Resp: Other: Diminished throughout with dense expiratory wheezes all [place]. Scattered coarse rhonchi that clear with cough Cardio: Other: No S4; positive S1-S2; no S3 murmurs rubs or gallops GI: Other: Soft nontender nondistended normoactive bowel sounds. No overt peritoneal signs Neuro: Other: Cranial nerves 2-12 grossly intact as tested. Motor is 5/5 all extremities. Sensation is intact. Cognition is appropriate Extrem: Other: No edema bilaterally Objective Data Active Medications Acetaminophen (Acetaminophen 325 Mg Tablet) 650 mg PO Q6H PRN PRN Reason: Pain, Mild (Pain Scale 1-3) Last Admin: 03/18/22 15:18 Dose: 650 mg Documented by: COTEMA Acetaminophen/Butalbital/Caffeine (Butalb/Acetamin/Caff 50/325/40 Tablet) 1 tab PO Q4H PRN PRN Reason: Headache Last Admin: 03/21/22 10:58 Dose: 1 tab Documented by: ESTRELLA Albuterol/Ipratropium (Albuterol/Iprat 2.5/0.5mg 3 Ml Ampul.Neb) 3 ml INHALE RQ4H PRN PRN Reason: Shortness of Breath/Wheezing Albuterol/Ipratropium (Albuterol/Iprat 2.5/0.5mg 3 Ml Ampul.Neb) 3 ml INHALE RQ4H WHILE AWAKE [facility] Last Admin: 03/21/22 10:53 Dose: 3 ml Documented by: MAYRA Amitriptyline HCl (Amitriptyline Hcl 50 Mg Tablet) 50 mg PO DAILY [facility] Last Admin: 03/21/22 09:38 Dose: 50 mg Documented by: GEOFFREY Benzonatate (Benzonatate 100 Mg Capsule) 200 mg PO TID PRN PRN Reason: cough Last Admin: 03/20/22 23:15 Dose: 200 mg Documented by: ARJUN Clonidine HCl (Clonidine Hcl 0.1 Mg Tablet) 0.1 mg PO BEDTIME [facility]; Protocol Last Admin: 03/20/22 21:37 Dose: 0.1 mg Documented by: ARJUN Cyanocobalamin (Cyanocobalamin (Vitamin B-12) 1,000 Mcg Tablet) 1,000 mcg PO DAILY [facility] Last Admin: 03/21/22 09:37 Dose: 1,000 mcg Documented by: GEOFFREY Dextrose (Dextrose 50 % 25 Gm/50 Ml Syringe) 25 gm IVPUSH Q15M PRN; Protocol PRN Reason: per Hypoglycemia Standing Ord. Docusate Sodium (Docusate Sodium 100 Mg Capsule) 100 mg PO DAILY PRN PRN Reason: Constipation Ergocalciferol (Ergocalciferol (Vitamin D2) 1,250 Mcg Capsule) 1,250 mcg PO [place] [facility] Last Admin: 03/19/22 06:33 Dose: 1,250 mcg Documented by: VIKY Ferrous Sulfate (Ferrous Sulfate 324 Mg Tablet.Dr) 324 mg PO BID [facility] Last Admin: 03/21/22 09:38 Dose: 324 mg Documented by: GEOFFREY Glucose (Glucose Gel 15 Gm Gel..Gram.) 15 gm PO Q15M PRN; Protocol PRN Reason: per Hypoglycemia Standing Ord. Guaifenesin/Dextromethorphan (Guaifenesin Dm 100/10/5 Ml 5 Ml Syrup) 5 ml PO Q 4H PRN PRN Reason: cough Last Admin: 03/20/22 03:31 Dose: 5 ml Documented by: ARJUN Guaifenesin/Dextromethorphan (Guaifenesin Dm 600/30 1 Tab Tab.Er.12h) 2 tab PO BID [facility] Last Admin: 03/21/22 09:39 Dose: 2 tab Documented by: GEOFFREY Heparin Sodium (Porcine) (Heparin Sodium,Porcine 5,000 Unit/Ml Vial) 5,000 unit SUBCUT Q12H [facility] Last Admin: 03/21/22 11:00 Dose: 5,000 unit Documented by: GEOFFREY Hydroxyzine HCl (Hydroxyzine Hcl 50 Mg Tablet) 50 mg PO BEDTIME [facility] Last Admin: 03/20/22 21:38 Dose: 50 mg Documented by: ARJUN Ceftriaxone Sodium 1 gm/ (Sodium Chloride) 50 mls @ 100 mls/hr IV Q24H [facility] Last Infusion: 03/20/22 23:25 Dose: 100 mls/hr Documented by: ARJUN Doxycycline Hyclate 100 mg/ (Sodium Chloride) 250 mls @ 166.67 mls/hr IV Q12H [facility] Last Infusion: 03/21/22 02:57 Dose: 166.67 mls/hr Documented by: ARJUN Insulin Human Lispro (Insulin Lispro 100 Unit/Ml 3 Ml Vial) 0 unit SUBCUT Q IDACHS [facility]; Protocol Last Admin: 03/21/22 12:01 Dose: 10 unit Documented by: GEOFFREY Levalbuterol HCl (Levalbuterol Hcl 1.25 Mg/0.5 Ml Vial.Neb) 1.25 mg INHALE Q4H PRN PRN Reason: Shortness of Breath Methylprednisolone Sodium Succinate (Methylprednisolone Sod Succ 40 Mg/Ml Vial) 60 mg IVPUSH Q8H [facility] Last Admin: 03/21/22 05:25 Dose: 60 mg Documented by: ARJUN Metoprolol Tartrate (Metoprolol Tartrate 50 Mg Tablet) 50 mg PO BID [facility]; Protocol Last Admin: 03/21/22 09:38 Dose: 50 mg Documented by: GEOFFREY Comments: BP 137/87, HR 80 Omeprazole (Omeprazole 20 Mg Capsule.) 20 mg PO DAILY [facility] Last Admin: 03/21/22 09:38 Dose: 20 mg Documented by: GEOFFREY Ondansetron HCl (Ondansetron Hcl 4 Mg/2 Ml Vial) 4 mg IVPUSH Q8H PRN PRN Reason: Nausea and Vomiting Pharmacy Consult (Consult Rx Perform Med Rec) 1 each MISCELLANE ONCE PRN PRN Reason: Consult order Sertraline HCl (Sertraline Hcl 100 Mg Tablet) 100 mg PO DAILY [facility] Last Admin: 03/21/22 09:37 Dose: 100 mg Documented by: GEOFFREY Sodium Chloride (0.9 % Sodium Chloride Flush 3 Ml Syringe) 3 ml IVFLUSH QSHIFT [facility] Last Admin: 03/21/22 09:39 Dose: 3 ml Documented by: GEOFFREY Tramadol HCl (Tramadol Hcl 50 Mg Tablet) 50 mg PO DAILY [facility] Last Admin: 03/21/22 09:37 Dose: 50 mg Documented by: GEOFFREY Labs CBC & Chem 7: 03/21/22 05:16 03/21/22 05:16 Labs: Laboratory Results - last 24 hr 03/20/22 03/20/22 03/20/22 16:42 19:38 23:19 MCV MCH MCHC RDW Plt Count MPV Immature Gran % (Auto) Neut % (Auto) Lymph % (Auto) [place] % (Auto) Eos % (Auto) Baso % (Auto) Lymph # (Auto) [place] # (Auto) Eos # (Auto) Baso # (Auto) Abs Immat Gran (auto) Absolute Neuts (auto) Absolute Nucleated RBC Nucleated RBC % (auto) Smear Tech's Comments Anion Gap Estim Creat Clear Calc Estimated GFR POC Glucose 439 H* 363 H* Fasting Glucose Calcium Total Bilirubin AST ALT Alkaline Phosphatase Total Protein Albumin Urine Color YELLOW Urine Appearance CLEAR Urine pH 6.0 Ur Specific [place] 1.010 Urine Protein NEG Urine Glucose (UA) >=1000 H Urine Ketones NEG Urine Blood NEG Urine Nitrite NEG Ur Leukocyte Esterase NEG Urine RBC 0-2 Urine WBC 0-2 Ur Squamous Epith Cells TRACE Urine Bacteria TRACE 03/21/22 03/21/22 03/21/22 05:16 05:16 07:27 MCV 76.4 L MCH 24.0 L MCHC 31.4 RDW 15.4 Plt Count 242 MPV 10.0 Immature Gran % (Auto) 6.3 H Neut % (Auto) 76.2 H Lymph % (Auto) 12.6 L [place] % (Auto) 4.7 Eos % (Auto) 0.0 Baso % (Auto) 0.2 Lymph # (Auto) 1.3 [place] # (Auto) 0.5 Eos # (Auto) 0.0 Baso # (Auto) 0.0 Abs Immat Gran (auto) 0.67 H Absolute Neuts (auto) 8.1 Absolute Nucleated RBC 0.000 Nucleated RBC % (auto) 0.0 Smear Tech's Comments VERIFIED Anion Gap 13 Estim Creat Clear Calc 34.6 Estimated GFR 37 POC Glucose 316 H Fasting Glucose 391 H* Calcium 9.5 Total Bilirubin 0.4 AST 16 ALT 20 Alkaline Phosphatase 129 H Total Protein 7.2 Albumin 3.8 Urine Color Urine Appearance Urine pH Ur Specific [place] Urine Protein Urine Glucose (UA) Urine Ketones Urine Blood Urine Nitrite Ur Leukocyte Esterase Urine RBC Urine WBC Ur Squamous Epith Cells Urine Bacteria 03/21/22 10:49 MCV MCH MCHC RDW Plt Count MPV Immature Gran % (Auto) Neut % (Auto) Lymph % (Auto) [place] % (Auto) Eos % (Auto) Baso % (Auto) Lymph # (Auto) [place] # (Auto) Eos # (Auto) Baso # (Auto) Abs Immat Gran (auto) Absolute Neuts (auto) Absolute Nucleated RBC Nucleated RBC % (auto) Smear Tech's Comments Anion Gap Estim Creat Clear Calc Estimated GFR POC Glucose 356 H* Fasting Glucose Calcium Total Bilirubin AST ALT Alkaline Phosphatase Total Protein Albumin Urine Color Urine Appearance Urine pH Ur Specific [place] Urine Protein Urine Glucose (UA) Urine Ketones Urine Blood Urine Nitrite Ur Leukocyte Esterase Urine RBC Urine WBC Ur Squamous Epith Cells Urine Bacteria Assessment and Plan (1) Acute respiratory failure with hypoxia: Status: Acute (2) Asthma with acute exacerbation: Status: Acute (3) Bronchopneumonia: Status: Acute (4) Diabetes: Status: Acute Plan 56-year-old female with history of asthma presents to the hospital with asthma exacerbation to have pneumonia and hypoxia 1.Acute asthma exacerbation(secondary to CAP) -ceftriaxone/doxycycline -pulse dose steroids... Increased to 60 Q 8 -nebs q.4 hours p.r.n. -supplemental O2; titrate for sats greater than equal to 92% 2. THANH(w/hyponatremia...hyperkalemia) -volume repletion (hyponatremia; corrects to 137) -insulin/calcium gluconate/nebs (hyperkalemia) -follow renals/divalents 3.Diabetes II(poorly controlled) - hold metformin until creatinine normalizes - lispro correctional scale - diabetic diet 4.Depression anxiety - continue mood stabilizers Heparin subQ Full code Patient requires ongoing hospitalization for treatment of community-acquired pneumonia with IV antibiotics and steroids for asthma exacerbation. Quality Stroke Does the patient have a stroke diagnosis?: No VTE Prior VTE?: No VTE Risk Level:: Medical - moderate - high VTE Device Contraindication: Treatment Not Indicated VTE Drug Contraindication: N/A - Med Ordered
--- NOTE | 2022-03-21 14:46 | MHC.CM.PN ---
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 CONTINUES WITH IV ABX, IV STEROIDS, NEBULIZER TREATMENTS, AND SUPPLEMENTAL OXYGEN. PATIENT WILL NEED HOME OXYGEN EVALUATION AT DISCHARGE . DISCHARGE PLAN -HOME ANTICIPATED HOME NO SERVICES PCP BRANDI RICHEY TRANSPORTSTION PATIENT TO SELF ARRANGE
[2022-03-21 15:53] LABS: Glucose, Whole Blood 277 mg/dL (60-115)
[2022-03-21] MEDS: cloNIDine HCL 0.1 MG TABLET PO (20:02)
[2022-03-21] MEDS: hydrOXYzine HCL 50 MG TABLET PO (20:02)
[2022-03-21 20:04] LABS: Glucose, Whole Blood 417 mg/dL (60-115)
[2022-03-21] MEDS: Insulin Glargine,Hum.rec.anlog 100 UNIT/ML 10 ML VIAL 15 UNIT SUBCUT (20:07)
[2022-03-21] MEDS: cefTRIAXone sodium 1 GM in 0.9 % Sodium Chloride 50 ML IV (23:35)
[2022-03-22] MEDS: Doxycycline Hyclate 100 MG in 0.9 % Sodium Chloride 250 ML 166.67 MG IV ×2 (00:21→12:01)
[2022-03-22] MEDS: Heparin Sodium,Porcine 5,000 UNIT/ML VIAL 5000 UNIT SUBCUT ×2 (00:23→09:56)
[2022-03-22] MEDS: methylPREDNISolone Sod Succ 40 MG/ML VIAL 60 MG IVPUSH ×2 (03:12→12:01)
[2022-03-22 03:17] VITALS: BP 151/93; PULSE 68; RESP 14; TEMP 36.3; O2SAT 96
[2022-03-22] MEDS: Albuterol/Iprat 2.5/0.5MG 3 ML AMPUL.NEB INHALE (07:12)
[2022-03-22 07:13] VITALS: PULSE 84; RESP 16; O2SAT 98
[2022-03-22 07:29] LABS: Glucose, Whole Blood 374 mg/dL (60-115)
[2022-03-22 07:50] VITALS: BP 124/80; PULSE 77; RESP 17; TEMP 36.4; O2SAT 99
[2022-03-22] MEDS: Metoprolol Tartrate 50 MG TABLET PO (07:56)
[2022-03-22] MEDS: guaiFENesin DM 600/30 1 TAB TAB.ER.12H 2 TAB PO (07:56)
[2022-03-22] MEDS: traMADoL HCL 50 MG TABLET PO (07:56)
[2022-03-22] MEDS: Amitriptyline HCl 50 MG TABLET PO (07:56)
[2022-03-22] MEDS: Omeprazole 20 MG CAPSULE.DR PO (07:56)
[2022-03-22] MEDS: Sertraline HCL 100 MG TABLET PO (07:56)
[2022-03-22] MEDS: 0.9 % Sodium Chloride Flush 3 ML SYRINGE IVFLUSH (07:57)
[2022-03-22] MEDS: Ferrous Sulfate 324 MG TABLET.DR PO (07:57)
[2022-03-22] MEDS: Cyanocobalamin (Vitamin B-12) 1,000 MCG TABLET 1000 MCG PO (07:57)
[2022-03-22] MEDS: Insulin Lispro 100 UNIT/ML 3 ML VIAL SUBCUT ×2 (07:57→12:00)
--- NOTE | 2022-03-22 08:43 | PM.CNPUL ---
History of Present Illness History of Present Illness Consult date: 03/22/22 Chief complaint: asthma exacerbation, CAP Narrative: The patient was see and examined. She is feeling better. Breathing is better. I took her off the oxtgen, should be ok on RA. Will be getting ready to go home. Review of Systems Review of Systems: Constitutional: No Fever, No Chills, No Fatigue, No Malaise ENT/Mouth: No Ear Pain, No Nasal Congestion, No Sinus Pain, No Hoarseness, No sore throat, No Rhinorrhea, No Swallowing Difficulty Eyes: No Eye Pain, No Swelling, No Redness Cardiovascular: + Chest discomfort when coughing, + SOB, No Dyspnea on Exertion, No Orthopnea, No Edema, No Palpitations Respiratory: + Cough, No Sputum, + Wheezing, No Smoke Exposure, No Dyspnea Gastrointestinal: No Nausea, No Vomiting, No Diarrhea, No Constipation, No Abdominal pain Genitourinary: No Dysuria, No Urinary Frequency, No Urinary Flow Changes Musculoskeletal: No joint pain, No Myalgias, No Joint Swelling Skin: No Skin Lesions, No rash Neuro: No Weakness, No Loss of Consciousness, No Dizziness, No Headache Yes all other systems are reviewed and are negative [facility] Past Medical History Medical History (Updated 03/20/22 @ 12:33 by Shree Gallo MD) Acute anxiety Arthritis Asthma Depression Diabetic acidosis, type II GERD (gastroesophageal reflux disease) HTN (hypertension) Hx of renal calculi On beta mariaelena at home Right knee injury Tobacco dependence Family History Family History Other No family history of coronary artery disease Surgical History Surgical History History of hysterectomy Hx of arthroscopy of right knee Hx of cystoscopy Social History Social History Household Members: None Housing: Apartment Patient Tobacco Use Status: Never used Tobacco Tobacco use type: Cigarette Cigarettes Per Day: 4 Smoked in Last 30 Days: Yes Patient Interested in Nicotine Replacement: Yes Patient Given Instructions on How to Stop Smoking: Yes Date Education Initiated: 03/18/22 Second Hand Smoke Exposure: No Use of substances other than those prescribed or required for medical reasons: No Currently Displaying Signs/Symptoms of Drug Intoxication Withdrawal: No Have you been hit, kicked, punched, or otherwise hurt by someone within the past year? If so, by whom?: No Do you feel safe in your current relationship?: No Is there a partner from a previous relationship who is making you feel unsafe now?: No Are you made to feel afraid or neglected: No Advance Directives: No Advance Directives Information Provided: No Do you have thoughts of harming others: None Do you have a plan to hurt others: No Plan Recently lost weight without trying: No Eating poorly because of decreased appetite: No Nutrition Risks: No Nutritional Risk service: No Current occupational status: employed Meds Allergies Allergy/AdvReac Type Severity Reaction Status Date / Time aspirin [Aspirin] Allergy Intermediate EYES Verified 03/17/22 16:02 SWELLING Penicillins Allergy Intermediate RASH Verified 03/17/22 16:02 citalopram Allergy Unknown chest pain Verified 03/17/22 16:02 Diltiazem HCl Allergy Unknown Unknown Uncoded 03/17/22 16:02 Active Medications: Current Medications Acetaminophen (Acetaminophen 325 Mg Tablet) 650 mg PO Q6H PRN PRN Reason: Pain, Mild (Pain Scale 1-3) Last Admin: 03/18/22 15:18 Dose: 650 mg Documented by: Acetaminophen/Butalbital/Caffeine (Butalb/Acetamin/Caff 50/325/40 Tablet) 1 tab PO Q4H PRN PRN Reason: Headache Last Admin: 03/21/22 10:58 Dose: 1 tab Documented by: Albuterol/Ipratropium (Albuterol/Iprat 2.5/0.5mg 3 Ml Ampul.Neb) 3 ml INHALE RQ4H PRN PRN Reason: Shortness of Breath/Wheezing Albuterol/Ipratropium (Albuterol/Iprat 2.5/0.5mg 3 Ml Ampul.Neb) 3 ml INHALE RQ4H WHILE AWAKE [facility] Last Admin: 03/22/22 07:12 Dose: 3 ml Documented by: Amitriptyline HCl (Amitriptyline Hcl 50 Mg Tablet) 50 mg PO DAILY [facility] Last Admin: 03/22/22 07:56 Dose: 50 mg Documented by: Benzonatate (Benzonatate 100 Mg Capsule) 200 mg PO TID PRN PRN Reason: cough Last Admin: 03/20/22 23:15 Dose: 200 mg Documented by: Clonidine HCl (Clonidine Hcl 0.1 Mg Tablet) 0.1 mg PO BEDTIME [facility]; Protocol Last Admin: 03/21/22 20:02 Dose: 0.1 mg Documented by: Cyanocobalamin (Cyanocobalamin (Vitamin B-12) 1,000 Mcg Tablet) 1,000 mcg PO DAILY [facility] Last Admin: 03/22/22 07:57 Dose: 1,000 mcg Documented by: Dextrose (Dextrose 50 % 25 Gm/50 Ml Syringe) 25 gm IVPUSH Q15M PRN; Protocol PRN Reason: per Hypoglycemia Standing Ord. Docusate Sodium (Docusate Sodium 100 Mg Capsule) 100 mg PO DAILY PRN PRN Reason: Constipation Ergocalciferol (Ergocalciferol (Vitamin D2) 1,250 Mcg Capsule) 1,250 mcg PO OWENS [facility] Last Admin: 03/19/22 06:33 Dose: 1,250 mcg Documented by: Ferrous Sulfate (Ferrous Sulfate 324 Mg Tablet.Dr) 324 mg PO BID [facility] Last Admin: 03/22/22 07:57 Dose: 324 mg Documented by: Glucose (Glucose Gel 15 Gm Gel..Gram.) 15 gm PO Q15M PRN; Protocol PRN Reason: per Hypoglycemia Standing Ord. Guaifenesin/Dextromethorphan (Guaifenesin Dm 100/10/5 Ml 5 Ml Syrup) 5 ml PO Q4H PRN PRN Reason: cough Last Admin: 03/20/22 03:31 Dose: 5 ml Documented by: Guaifenesin/Dextromethorphan (Guaifenesin Dm 600/30 1 Tab Tab.Er.12h) 2 tab PO BID [facility] Last Admin: 03/22/22 07:56 Dose: 2 tab Documented by: Heparin Sodium (Porcine) (Heparin Sodium,Porcine 5,000 Unit/Ml Vial) 5,000 unit SUBCUT Q12H [facility] Last Admin: 03/22/22 00:23 Dose: 5,000 unit Documented by: Hydroxyzine HCl (Hydroxyzine Hcl 50 Mg Tablet) 50 mg PO BEDTIME [facility] Last Admin: 03/21/22 20:02 Dose: 50 mg Documented by: Ceftriaxone Sodium 1 gm/ (Sodium Chloride) 50 mls @ 100 mls/hr IV Q24H [facility] Last Infusion: 03/22/22 00:25 Dose: Infused Documented by: Doxycycline Hyclate 100 mg/ (Sodium Chloride) 250 mls @ 166.67 mls/hr IV Q12H [facility] Last Infusion: 03/22/22 01:52 Dose: Infused Documented by: Insulin Glargine (Insulin Glargine,Hum.Rec.Anlog 100 Unit/Ml 10 Ml Vial) 20 unit SUBCUT BEDTIME [facility] Insulin Human Lispro (Insulin Lispro 100 Unit/Ml 3 Ml Vial) 0 unit SUBCUT QIDACHS [facility]; Protocol Last Admin: 03/22/22 07:57 Dose: 18 unit Documented by: Levalbuterol HCl (Levalbuterol Hcl 1.25 Mg/0.5 Ml Vial.Neb) 1.25 mg INHALE Q4H PRN PRN Reason: Shortness of Breath Methylprednisolone Sodium Succinate (Methylprednisolone Sod Succ 40 Mg/Ml Vial) 60 mg IVPUSH Q8H [facility] Last Admin: 03/22/22 03:12 Dose: 60 mg Documented by: Metoprolol Tartrate (Metoprolol Tartrate 50 Mg Tablet) 50 mg PO BID [facility]; Protocol Last Admin: 03/22/22 07:56 Dose: 50 mg Documented by: Omeprazole (Omeprazole 20 Mg Capsule.) 20 mg PO DAILY [facility] Last Admin: 03/22/22 07:56 Dose: 20 mg Documented by: Ondansetron HCl (Ondansetron Hcl 4 Mg/2 Ml Vial) 4 mg IVPUSH Q8H PRN PRN Reason: Nausea and Vomiting Pharmacy Consult (Consult Rx Perform Med Rec) 1 each MISCELLANE ONCE PRN PRN Reason: Consult order Sertraline HCl (Sertraline Hcl 100 Mg Tablet) 100 mg PO DAILY [facility] Last Admin: 03/22/22 07:56 Dose: 100 mg Documented by: Sodium Chloride (0.9 % Sodium Chloride Flush 3 Ml Syringe) 3 ml IVFLUSH QSHIFT [facility] Last Admin: 03/22/22 07:57 Dose: 3 ml Documented by: Tramadol HCl (Tramadol Hcl 50 Mg Tablet) 50 mg PO DAILY [facility] Last Admin: 03/22/22 07:56 Dose: 50 mg Documented by: Home Medications Medication Instructions Recorded Confirmed Last Taken Type amitriptyline 50 mg tablet 50 mg PO DAILY 08/03/21 03/17/22 03/17/22 History lisinopril 40 mg tablet 40 mg PO DAILY 08/03/21 03/17/22 03/17/22 History omeprazole 20 mg capsule,delayed 20 mg PO DAILY 08/03/21 03/17/22 03/17/22 History release sertraline 100 mg tablet 100 mg PO DAILY 08/03/21 03/17/22 03/17/22 History tramadol 50 mg tablet 50 mg PO DAILY 08/03/21 03/17/22 03/17/22 History levalbuterol tartrate 45 2 puff PO Q6H 09/14/21 03/17/22 03/17/22 History mcg/actuation aerosol inhaler (Xopenex HFA) clonidine HCl 0.1 mg tablet 1 tab PO BEDTIME 03/17/22 03/17/22 03/16/22 History cyanocobalamin (vitamin B-12) 1 tab PO DAILY 03/17/22 03/17/22 03/16/22 History 1,000 mcg tablet dapagliflozin 10 mg tablet 1 tab PO DAILY 03/17/22 03/17/22 03/17/22 History (Farxiga) ergocalciferol (vitamin D2) 1,250 1 cap PO OWENS 03/17/22 03/17/22 03/12/22 History mcg (50,000 unit) capsule ferrous sulfate 325 mg (65 mg 1 tab PO BID 03/17/22 03/17/22 03/17/22 History iron) tablet (FeroSul) hydroxyzine pamoate 50 mg capsule 1 cap PO BEDTIME 03/17/22 03/17/22 03/17/22 History metformin 500 mg tablet,extended 1 tab PO BID 03/17/22 03/17/22 03/17/22 History release 24 hr metoprolol tartrate 50 mg tablet 1 tab PO BID 03/17/22 03/17/22 03/17/22 History Physical Exam Vital Signs: Vital Signs: Last Vital Signs Temp 97.6 F 03/22/22 07:50 Pulse 77 03/22/22 07:50 Resp 17 03/22/22 07:50 BP 124/80 03/22/22 07:50 Pulse Ox 99 03/22/22 07:50 BMI result Body Mass Index 23.1 Const: General: alert Neck: Neck: Yes normal visual inspection, Yes full ROM and Yes no lymphadenopathy Chest: Chest palpation & inspection: normal inspection of the chest Resp: Auscultation: diminished lung sounds Cardio: Rate: regular rate Rhythm: regular rhythm Heart sounds: S1 normal heart sound present and S2 normal heart sound present GI: Palpation (GI): Soft to palpation and nontender Auscultation: normal bowel sounds Skin: General skin exam: rashes and/or lesions noted Results Laboratory Findings CBC and BMP: 03/21/22 05:16 03/21/22 05:16 Abnormal lab findings: Abnormal Labs 03/17/22 03/17/22 03/18/22 18:11 18:11 05:14 WBC Hgb 11.9 L MCV 78.4 L 76.5 L MCH 24.3 L 23.9 L Immature Gran % (Auto) 0.8 H Neut % (Auto) 91.7 H Lymph % (Auto) 6.8 L [place] % (Auto) 0.6 L Lymph # (Auto) 0.6 L Abs Immat Gran (auto) 0.04 H 0.08 H Absolute Neuts (auto) 8.7 H Sodium Potassium Carbon Dioxide BUN 21 H Creatinine 1.47 H POC Glucose Random Glucose 270 H Fasting Glucose Alkaline Phosphatase 162 H Urine Glucose (UA) 03/18/22 03/18/22 03/18/22 05:14 07:16 07:32 WBC Hgb MCV MCH Immature Gran % (Auto) Neut % (Auto) Lymph % (Auto) [place] % (Auto) Lymph # (Auto) Abs Immat Gran (auto) Absolute Neuts (auto) Sodium 130 L 131 L Potassium 6.0 H* D 6.0 H* Carbon Dioxide 19 L 19 L BUN 30 H 30 H Creatinine 1.70 H 1.60 H POC Glucose 438 H* Random Glucose 540 H* 495 H* Fasting Glucose Alkaline Phosphatase Urine Glucose (UA) 03/18/22 03/18/22 03/18/22 08:57 10:18 11:05 WBC Hgb MCV MCH Immature Gran % (Auto) Neut % (Auto) Lymph % (Auto) [place] % (Auto) Lymph # (Auto) Abs Immat Gran (auto) Absolute Neuts (auto) Sodium Potassium Carbon Dioxide BUN Creatinine POC Glucose 352 H* 290 H 356 H* Random Glucose Fasting Glucose Alkaline Phosphatase Urine Glucose (UA) 03/18/22 03/18/22 03/18/22 13:16 15:29 16:19 WBC Hgb MCV MCH Immature Gran % (Auto) Neut % (Auto) Lymph % (Auto) [place] % (Auto) Lymph # (Auto) Abs Immat Gran (auto) Absolute Neuts (auto) Sodium 131 L Potassium 5.2 H Carbon Dioxide 20 L BUN 29 H Creatinine 1.53 H POC Glucose 352 H* 313 H Random Glucose 448 H* Fasting Glucose Alkaline Phosphatase Urine Glucose (UA) 03/18/22 03/19/22 03/19/22 19:45 06:07 06:07 WBC 13.0 H Hgb 11.7 L MCV 76.7 L MCH 23.9 L Immature Gran % (Auto) 1.5 H Neut % (Auto) 88.9 H Lymph % (Auto) 7.4 L [place] % (Auto) Lymph # (Auto) 1.0 L Abs Immat Gran (auto) 0.19 H Absolute Neuts (auto) 11.6 H Sodium 132 L Potassium 5.8 H Carbon Dioxide BUN 33 H Creatinine 1.69 H POC Glucose 290 H Random Glucose Fasting Glucose 422 H* Alkaline Phosphatase 133 H Urine Glucose (UA) 03/19/22 03/19/22 03/19/22 07:11 11:35 15:38 WBC Hgb MCV MCH Immature Gran % (Auto) Neut % (Auto) Lymph % (Auto) [place] % (Auto) Lymph # (Auto) Abs Immat Gran (auto) Absolute Neuts (auto) Sodium Potassium Carbon Dioxide BUN Creatinine POC Glucose 374 H* 186 H 371 H* Random Glucose Fasting Glucose Alkaline Phosphatase Urine Glucose (UA) 03/19/22 03/20/22 03/20/22 19:40 05:14 05:14 WBC 13.1 H Hgb MCV 78.0 L MCH 24.4 L Immature Gran % (Auto) 6.5 H Neut % (Auto) 82.7 H Lymph % (Auto) 7.8 L [place] % (Auto) Lymph # (Auto) 1.0 L Abs Immat Gran (auto) 0.85 H Absolute Neuts (auto) 10.9 H Sodium 132 L Potassium 5.7 H Carbon Dioxide BUN 35 H Creatinine 1.57 H POC Glucose 395 H* Random Glucose Fasting Glucose 421 H* Alkaline Phosphatase 133 H Urine Glucose (UA) 03/20/22 03/20/22 03/20/22 07:16 11:29 16:42 WBC Hgb MCV MCH Immature Gran % (Auto) Neut % (Auto) Lymph % (Auto) [place] % (Auto) Lymph # (Auto) Abs Immat Gran (auto) Absolute Neuts (auto) Sodium Potassium Carbon Dioxide BUN Creatinine POC Glucose 379 H* 194 H 439 H* Random Glucose Fasting Glucose Alkaline Phosphatase Urine Glucose (UA) 03/20/22 03/20/22 03/21/22 19:38 23:19 05:16 WBC Hgb MCV 76.4 L MCH 24.0 L Immature Gran % (Auto) 6.3 H Neut % (Auto) 76.2 H Lymph % (Auto) 12.6 L [place] % (Auto) Lymph # (Auto) Abs Immat Gran (auto) 0.67 H Absolute Neuts (auto) Sodium Potassium Carbon Dioxide BUN Creatinine POC Glucose 363 H* Random Glucose Fasting Glucose Alkaline Phosphatase Urine Glucose (UA) >=1000 H 03/21/22 03/21/22 03/21/22 05:16 07:27 10:49 WBC Hgb MCV MCH Immature Gran % (Auto) Neut % (Auto) Lymph % (Auto) [place] % (Auto) Lymph # (Auto) Abs Immat Gran (auto) Absolute Neuts (auto) Sodium 132 L Potassium 5.4 H Carbon Dioxide BUN 32 H Creatinine 1.45 H POC Glucose 316 H 356 H* Random Glucose Fasting Glucose 391 H* Alkaline Phosphatase 129 H Urine Glucose (UA) 03/21/22 03/21/22 03/22/22 15:30 19:46 07:17 WBC Hgb MCV MCH Immature Gran % (Auto) Neut % (Auto) Lymph % (Auto) [place] % (Auto) Lymph # (Auto) Abs Immat Gran (auto) Absolute Neuts (auto) Sodium Potassium Carbon Dioxide BUN Creatinine POC Glucose 277 H 417 H* 374 H* Random Glucose Fasting Glucose Alkaline Phosphatase Urine Glucose (UA) Assessment and Plan (1) Bronchopneumonia: Status: Acute (2) Acute respiratory failure with hypoxia: Status: Acute (3) Tobacco dependence: Status: Acute (4) Asthma with acute exacerbation: Status: Acute Plan Will go into
--- NOTE | 2022-03-22 08:58 | PM.PNPUL ---
Subjective Subjective Date of Service: 03/22/22 Interval history: Seen and examined. Feeling better. Took off oxygen. Objective Data Labs CBC & Chem 7: 03/21/22 05:16 03/21/22 05:16 Labs: Laboratory Results - last 24 hr 03/21/22 03/21/22 03/21/22 10:49 15:30 19:46 POC Glucose 356 H* 277 H 417 H* 03/22/22 07:17 POC Glucose 374 H* Review of Systems Review of Systems Constitutional: No Fever, No Chills, No Fatigue, No Malaise ENT/Mouth: No Ear Pain, No Nasal Congestion, No Sinus Pain, No Hoarseness, No sore throat, No Rhinorrhea, No Swallowing Difficulty Eyes: No Eye Pain, No Swelling, No Redness Cardiovascular: + Chest discomfort when coughing, + SOB, No Dyspnea on Exertion, No Orthopnea, No Edema, No Palpitations Respiratory: + Cough, No Sputum, + Wheezing, No Smoke Exposure, No Dyspnea Gastrointestinal: No Nausea, No Vomiting, No Diarrhea, No Constipation, No Abdominal pain Genitourinary: No Dysuria, No Urinary Frequency, No Urinary Flow Changes Musculoskeletal: No joint pain, No Myalgias, No Joint Swelling Skin: No Skin Lesions, No rash Neuro: No Weakness, No Loss of Consciousness, No Dizziness, No Headache Yes all other systems are reviewed and are negative Physical Exam Vital Signs: Vital Signs: Last Vital Signs Temp 97.6 F 03/22/22 07:50 Pulse 77 03/22/22 07:50 Resp 17 03/22/22 07:50 BP 124/80 03/22/22 07:50 Pulse Ox 99 03/22/22 07:50 BMI result Body Mass Index 23.1 Const: General: alert Neck: Neck: Yes normal visual inspection, Yes full ROM and Yes no lymphadenopathy Chest: Chest palpation & inspection: normal inspection of the chest Resp: Auscultation: diminished lung sounds Cardio: Rate: regular rate Rhythm: regular rhythm Heart sounds: S1 normal heart sound present and S2 normal heart sound present GI: Palpation (GI): Soft to palpation and nontender Auscultation: normal bowel sounds Skin: General skin exam: rashes and/or lesions noted Procedures Date of Service Date of Service: 03/22/22 Assessment and Plan Assessment and plan (1) Acute respiratory failure with hypoxia: Status: Acute (2) Bronchopneumonia: Status: Acute (3) Tobacco dependence: Status: Acute (4) Asthma with acute exacerbation: Status: Acute Plan Walking oximetry tsting complete 8 days abx Prednisone taper CPT with [facility] Will arrange pulmonary outpt f/u tobacco cessation Time Spent With Patient Time: Total time spent is greater than 50% in coordination of care (as documented) at patient's floor/unit and/or counseling patient: Progress Note: Quality Stroke Does the patient have a stroke diagnosis?: No
[2022-03-22] MEDS: Butalb/Acetamin/Caff 50/325/40 TABLET 1 TAB PO (09:56)
[2022-03-22 10:14] VITALS: PULSE 78; PULSE 86; O2SAT 96; O2SAT 97
[2022-03-22 10:14] LABS: Anion Gap 13 (12-20); Blood Urea Nitrogen 39 mg/dL (9-16); Calcium 9.6 mg/dL (8.4-10.2); Carbon Dioxide 19 mmol/L (22-29); Chloride 103 mmol/L (96-108); Creatinine Clr Calc Pharmacy 33.1; Estimated Glomerular Filt Rate 36; Glucose Random 312 mg/dL (60-115); Potassium 4.4 mmol/L (3.3-5.1); Sodium 131 mmol/L (135-145)
[2022-03-22 11:07] LABS: Estimated Average Glucose 312 mg/dL; Hemoglobin A1c % 12.5 %
[2022-03-22 11:08] LABS: Procalcitonin 0.04 ng/mL
--- NOTE | 2022-03-22 11:08 | PM.DS ---
DS: Providers Provider Date of Service: 03/22/22 Date of admission: 03/17/22 22:52 Primary care physician: Elsa Espitia MD Consults: 03/19/22 09:15 Consult to Nephrology Routine Consulting Provider: Horace Barney Reason for consultation: THANH in backdrop of poorly controlled DMII Has provider been notified: No 03/20/22 09:39 Consult to Pulmonology Routine Consulting Provider: Shree Gallo Reason for consultation: Asthma exacerbation Has provider been notified: Yes DS: Diagnosis Discharge Diagnosis (1) Acute respiratory failure with hypoxia: Status: Acute (2) Tobacco dependence: Status: Acute (3) Asthma with acute exacerbation: Status: Acute (4) THANH (acute kidney injury): Status: Acute (5) Hyperkalemia: Status: Acute (6) Pneumonia: Status: Acute (7) Uncontrolled diabetes mellitus with hyperglycemia: Status: Acute DS: Summary Hospital Course Hospital Course: from admission H+P by hospitalist Karen Veloz MD, 03/18/22: This is a 56-year-old female with past medical history of diabetes, hypertension, asthma, anxiety and depression, presents the hospital with complaints of shortness of breath for the past 1 week.? Patient reports cough, some sputum production, no fever some chills, no chest pain, no abdominal pain, no nausea or vomiting, no diarrhea constipation, no urinary symptoms.? She reports that she has been trying to use her rescue inhaler with no relief. On arrival to the ED patient noted to have a slight tachycardia, as well as hypoxic 88% on room air Labs are reviewed showed a creatinine of 1.47 from a baseline of around 1.2, COVID-19 and influenza negative Patient given multiple rounds of breathing treatment as well as IV Solu-Medrol, and magnesium with minimal relief of her symptoms, chest x-ray also showed infiltrate suspicious for pneumonia.? Patient will be admitted for further management This 56-year-old female with history of asthma presented to the hospital with hypoxia due to asthma exacerbation and community-acquired pneumonia. She was treated with IV steroids and antibiotics. She was weaned off of oxygen. Upon discharge, she was prescribed cefuroxime and doxycycline along with prednisone taper. She was also found to have acute kidney injury and hyperkalemia. Potassium normalized with insulin administration and nebulizer treatments, along with discontinuation of lisinopril. Serum creatinine stabilized around 1.5. Metformin was discontinued. Repeat BMP in 1 week was ordered. She was noted to have hyperglycemia and HbA1c of 12.5. She was prescribed Lantus 20 units qhs upon discharge. She was discharged home with VNA services and instructions to follow up with Primary Care and Pulmonology. She was prescribed nicotine gum to help her quit smoking. Time Spent with Patient Time attestation: Total time spent providing and/or coordinating discharge services: Discharge coordination time: Greater than 30 minutes Quality: Safe Use of Opioids Does Pt have an Active Cancer Diagnosis on the Problem List?: No Quality: Stroke Does the patient have a stroke diagnosis?: No Physical Exam Vital Signs: Vital Signs: Last Vital Signs Temp 97.6 F 03/22/22 07:50 Pulse 77 03/22/22 07:50 Resp 17 03/22/22 07:50 BP 124/80 03/22/22 07:50 Pulse Ox 99 03/22/22 07:50 BMI result Body Mass Index 23.1 Gen: in no acute distress HEENT: sclera anicteric, moist mucus membranes Neck: supple Lungs: clear to auscultation bilaterally Heart: regular rate and rhythm, no murmurs Abd: soft, non-tender, non-distended Ext: no edema Skin: warm/well-perfused Neuro: alert and oriented x3, no focal findings Psych: appropriate affect DS: Data Data Completed and Pending Completed studies during hospitalization [Text1]: Laboratory Results WBC 10.6 X10*3/uL (4.8-10.8) 03/21/22 05:16 RBC 5.08 X10*6/uL (4.20-5.50) 03/21/22 05:16 Hgb 12.2 g/dl (12.0-16.0) 03/21/22 05:16 Hct 38.8 % (37.0-47.0) 03/21/22 05:16 MCV 76.4 fL (80.0-98.0) L 03/21/22 05:16 MCH 24.0 pg (27.0-33.0) L 03/21/22 05:16 MCHC 31.4 g/dl (31.0-35.0) 03/21/22 05:16 RDW 15.4 % (11.0-16.0) 03/21/22 05:16 Plt Count 242 X10*3/uL (160-400) 03/21/22 05:16 MPV 10.0 fL (9.4-12.3) 03/21/22 05:16 Immature Gran % (Auto) 6.3 % (0.0-0.4) H 03/21/22 05:16 Neut % (Auto) 76.2 % (45-73) H 03/21/22 05:16 Lymph % (Auto) 12.6 % (20-40) L 03/21/22 05:16 [place] % (Auto) 4.7 % (2-11) 03/21/22 05:16 Eos % (Auto) 0.0 % (0-4) 03/21/22 05:16 Baso % (Auto) 0.2 % (0-2) 03/21/22 05:16 Lymph # (Auto) 1.3 X10*3/uL (1.2-4.9) 03/21/22 05:16 [place] # (Auto) 0.5 X10*3/uL (0.1-1.2) 03/21/22 05:16 Eos # (Auto) 0.0 X10*3/uL (0.0-0.4) 03/21/22 05:16 Baso # (Auto) 0.0 X10*3/uL (0.0-0.2) 03/21/22 05:16 Abs Immat Gran (auto) 0.67 X10*3/uL (0.00-0.03) H 03/21/22 05:16 Absolute Neuts (auto) 8.1 x10*3/uL (2.0-8.3) 03/21/22 05:16 Absolute Nucleated RBC 0.000 X10*3/uL (0.0-0.012) 03/21/22 05:16 Nucleated RBC % (auto) 0.0 /100WBC (0.0-0.2) 03/21/22 05:16 Smear Tech's Comments VERIFIED 03/21/22 05:16 Sodium 131 mmol/L (135-145) L 03/22/22 09:54 Potassium 4.4 mmol/L (3.3-5.1) 03/22/22 09:54 Chloride 103 mmol/L (96-108) 03/22/22 09:54 Carbon Dioxide 19 mmol/L (22-29) L 03/22/22 09:54 Anion Gap 13 (12-20) 03/22/22 09:54 BUN 39 mg/dL (9-16) H 03/22/22 09:54 Creatinine 1.52 mg/dL (0.5-1.4) H 03/22/22 09:54 Estim Creat Clear Calc 33.1 03/22/22 09:54 Estimated GFR 36 03/22/22 09:54 POC Glucose 374 mg/dL (60-115) H* 03/22/22 07:17 Random Glucose 312 mg/dL (60-115) H 03/22/22 09:54 Fasting Glucose 391 mg/dL (60-99) H* 03/21/22 05:16 Estimat Average Glucose 312 mg/dL 03/22/22 09:54 Hemoglobin A1c % 12.5 % 03/22/22 09:54 Calcium 9.6 mg/dL (8.4-10.2) 03/22/22 09:54 Total Bilirubin 0.4 mg/dL (0.0-1.0) 03/21/22 05:16 Direct Bilirubin 0.3 mg/dL (0.0-0.5) 03/17/22 18:11 AST 16 U/L (5-31) 03/21/22 05:16 ALT 20 U/L (0-31) 03/21/22 05:16 Alkaline Phosphatase 129 U/L (39-117) H 03/21/22 05:16 B-Natriuretic Peptide < 10 pg/mL (<100) 03/17/22 18:11 Total Protein 7.2 g/dL (6.5-8.0) 03/21/22 05:16 Albumin 3.8 g/dL (3.5-5.0) 03/21/22 05:16 Procalcitonin 0.04 ng/mL 03/22/22 09:54 Urine Color YELLOW 03/20/22 23:19 Urine Appearance CLEAR 03/20/22 23:19 Urine pH 6.0 (5.0-8.0) 03/20/22 23:19 Ur Specific [place] 1.010 (1.005-1.025) 03/20/22 23:19 Urine Protein NEG MG/DL (NEG-TRACE) 03/20/22 23:19 Urine Glucose (UA) >=1000 MG/DL (NEG) H 03/20/22 23:19 Urine Ketones NEG MG/DL (NEG) 03/20/22 23:19 Urine Blood NEG (NEG) 03/20/22 23:19 Urine Nitrite NEG (NEG) 03/20/22 23:19 Ur Leukocyte Esterase NEG (NEG) 03/20/22 23:19 Urine RBC 0-2 /HPF (0) 03/20/22 23:19 Urine WBC 0-2 /HPF (0-4) 03/20/22 23:19 Ur Squamous Epith Cells TRACE /LPF 03/20/22 23:19 Urine Bacteria TRACE /LPF 03/20/22 23:19 COVID-19 (CUCA) Negative (Negative) 03/17/22 17:19 COVID-19 Clin Com See Note 03/17/22 17:19 Influenza Type A (LILY) Negative (Negative) 03/17/22 17:18 Influenza Type B (LILY) Negative (Negative) 03/17/22 17:18 Influenza A & B Note See Note 03/17/22 17:18 S. pyogenes GrpA LILY Negative (Negative) 03/17/22 17:20 Impressions Chest X-Ray 03/17/22 18:52 IMPRESSION: Lateral view confirms small pleural effusion obscuring costophrenic angles, probably mild infiltrate/atelectasis at lung base posteriorly. Discharge Plan Discharge Patient Disposition: Home Health Service Discharge Diagnosis: pneumonia, asthma exacerbation, hyperkalemia, acute kidney injury, tobacco abuse, uncontrolled diabetes Referrals: Shree Gallo MD [Physician] - 1 Week Elsa Espitia MD [Primary Care Provider] - 2 days Discharge Medications: New albuterol sulfate 90 mcg/actuation HFA aerosol inhaler 2 puff inhalation Q4-6H PRN (Reason: shortness of breath or wheezing) Qty: 6.7 0RF fluticasone propionate [Flonase Allergy Relief] 50 mcg/actuation spray,suspension 2 spray intranasal DAILY Qty: 16 0RF Rx Instructions: administer into each nostril albuterol sulfate 2.5 mg/0.5 mL solution for nebulization 5 mg inhalation Q4H PRN (Reason: shortness of breath or wheezing) Qty: 30 0RF benzonatate 200 mg capsule 200 mg PO TID PRN (Reason: cough) Qty: 16 0RF prednisone 10 mg tablet See Rx Instructions .ROUTE .COMPLEX Qty: 14 0RF Rx Instructions: 40 mg daily x 2 days, then 20 mg daily x 2 days, then 10 mg daily x 2 days cefuroxime axetil 500 mg tablet 500 mg PO BID Qty: 6 0RF doxycycline monohydrate 100 mg tablet 100 mg PO BID Qty: 6 0RF nicotine (polacrilex) 2 mg gum 2 mg buccal Q2H PRN (Reason: nicotine cravings) Qty: 100 0RF insulin glargine 100 unit/mL (3 mL) insulin pen 20 unit subcut QPM Qty: 3 0RF (DME) pen needle, diabetic [Pen Needle] 31 gauge x 3/16 needle See Rx Instructions .Route Qty: 50 0RF Rx Instructions: As directed Continued levalbuterol tartrate [Xopenex HFA] 45 mcg/actuation HFA aerosol inhaler 2 puff PO Q6H 0RF clonidine HCl 0.1 mg tablet 1 tab PO BEDTIME 0RF cyanocobalamin (vitamin B-12) 1,000 mcg tablet 1 tab PO DAILY 0RF hydroxyzine pamoate 50 mg capsule 1 cap PO BEDTIME 0RF ferrous sulfate [FeroSul] 325 mg (65 mg iron) tablet 1 tab PO BID 0RF metoprolol tartrate 50 mg tablet 1 tab PO BID 0RF ergocalciferol (vitamin D2) 1,250 mcg (50,000 unit) capsule 1 cap PO OWENS 0RF Farxiga 10 mg tablet 1 tab PO DAILY 0RF sertraline 100 mg tablet 100 mg PO DAILY 0RF amitriptyline 50 mg tablet 50 mg PO DAILY 0RF omeprazole 20 mg capsule,delayed release(DR/EC) 20 mg PO DAILY 0RF tramadol 50 mg tablet 50 mg PO DAILY 0RF Discontinued metformin 500 mg tablet extended release 24 hr 1 tab PO BID 0RF lisinopril 40 mg tablet 40 mg PO DAILY 0RF Discharge Orders: Discharge Order (Routine); Ordered 03/22/22 Ordered By: Chuyita Duenas Diet: diabetic diet Activity on Discharge: As tolerated Stand Alone Forms: Patient Portal Discharge page Print Language: Trinidadian Other Ambulatory Orders: Basic Metabolic Panel (Routine) Timeframe: 1 Week Facility: [facility] - Location: Laboratory Ordered By: Chuyita Duenas Care Plan Goals: resolution of pneumonia and asthma exacerbation prevention of diabetic complications Health Concerns: pneumonia, asthma exacerbation, hyperkalemia, acute kidney injury, tobacco abuse, uncontrolled diabetes Plan of Treatment: Take antibiotics as prescribed for pneumonia: cefuroxime 500 mg twice daily plus doxycycline 100 mg twice daily for 3 days Take prednisone taper as prescribed for asthma: 40 mg once daily for 2 days, then 20 mg once daily for 2 days, then 10 mg once daily Drink plenty of fluids [not sugary, though] Stop lisinopril due to elevated potassium and acute kidney injury. Recheck BMP [non-fasting] in 1 week Stop metformin due to acute kidney injury. Continue Farxiga. Start Lantus pen 20 units every night. Avoid eating/drinking sugar or simple starches. Stop smoking. Use nicotine gum to help quit. See your primary care doctor in 1 week. See computer salesperson retail Dr Gallo in 1-2 weeks. Assessment: See Discharge Summary Patient Instructions: Asthma (DC)
--- NOTE | 2022-03-22 11:18 | P.F2F_ITS ---
Service Date Service Date: 03/22/22 Encounter Date of encounter: 03/22/22 Reasons for Services Signs and symptoms assessed: hyperglycemia Reason for group home: diabetic teaching, medication management, medication treatment and teach disease management MD Overseeing Care: Elsa Espitia Homebound: Leaving the home is medically contraindicated at this time without the asist of a device and/or another person due th the listed conditions above and below. Reason homebound: shortness of breath with minimal effort and weakness related to hospital stay Certification: Based on the above findings, I certify that this patient is confined to the home and needs intermittent group home care, physical therapy and/or speech therapy, or continues to need occupational therapy. The patient is under my care, and I have initiated the establishment of the plan of care. The patient will be followed by a physician who will periodically review the plan of care.
--- NOTE | 2022-03-22 11:35 | MHC.CM.PN ---
Addendum entered by Urvashi Irwin RN 03/22/22 13:38: cm board of education secretary received call from pcp, pt has been rescheduled for 03/31/22 0900. Addendum entered by Urvashi Irwin RN 03/22/22 12:06: [facility] will see pt for diabetic and new insulin teaching, soc planned for tomorrow 03/23/22. Original Note: pt medically cleared for d/c home w/new vna for uncontrolled diabetes and new to insulin, cm has also requested cm board of education secretary make follow-up w/pcp for pt, pt to arrange transport
[2022-03-22 11:43] LABS: Glucose, Whole Blood 243 mg/dL (60-115)
[2022-03-22 11:58] VITALS: BP 141/92; PULSE 82; RESP 18; TEMP 36.1; O2SAT 97
== END 2022-03-22 14:28 | disposition home health service (06) | DRG 139 ==
LOC: HO.ED 22:38 → HO.EDOVER 23:02 → HO.S3 03-18 03:47
PROVIDERS: Hospitalist; Internal Medicine; Physician Assistant; Admitting Provider Internal Medicine; Emergency Provider Emergency Medicine Emergency Medical Services; PCP Family Medicine; Visit Provider Family Medicine
DX: J18.0 Bronchopneumonia, unspecified organism (principal); J96.01 Acute respiratory failure with hypoxia; N17.9 Acute kidney failure, unspecified; E87.2 Acidosis; J45.901 Unspecified asthma with (acute) exacerbation; E87.1 Hypo-osmolality and hyponatremia; E86.0 Dehydration; F32.A Depression, unspecified; E87.5 Hyperkalemia; F41.9 Anxiety disorder, unspecified; E11.65 Type 2 diabetes mellitus with hyperglycemia; K21.9 Gastro-esophageal reflux disease without esophagitis; F17.200 Nicotine dependence, unspecified, uncomplicated; Z71.6 Tobacco abuse counseling; Z20.822 Contact with and (suspected) exposure to COVID-19; Z79.4 Long term (current) use of insulin; Z87.442 Personal history of urinary calculi; Z88.0 Allergy status to penicillin; Z88.6 Allergy status to analgesic agent; Z88.8 Allergy status to other drugs, medicaments and biological substances; Z79.51 Long term (current) use of inhaled steroids; Z79.52 Long term (current) use of systemic steroids; Z79.891 Long term (current) use of opiate analgesic; Z79.899 Other long term (current) drug therapy
CPT/HCPCS: 36415; 71045; 80048; 80053; 80076; 81001; 82947; 83036; 83880; 84145; 85025; 87502; 87635; 87651; 93005; 94640; 96365; 96366; 99285; J0456; J0610; J0696; J2920; J3475

== ENCOUNTER → 2022-04-04 11:35 | Outpatient (BNVA) | payer MEDICAID, SELFPAY | PROVIDERS: PCP Family Medicine; Visit Provider Internal Medicine Pulmonary Disease | DX: J90 Pleural effusion, not elsewhere classified (principal); J45.909 Unspecified asthma, uncomplicated | CPT/HCPCS: 99202 ==

== ENCOUNTER 2022-05-04 14:49 | Outpatient (REF) | payer MEDICAID, SELFPAY ==
--- NOTE | ~2022-05-04 | MM_ITS ---
EXAMINATION: MM SCREENING DIGITAL BREAST TOMOSYNTHESIS, BILATERAL CLINICAL INFORMATION: Screening. Asymptomatic. The lifetime risk of breast cancer based on the Tyrer-Cuzick Model is 6%. COMPARISON: Mammography: May 03, 2021 and studies dating back to June 28, 2012 TECHNIQUE: Digital breast tomosynthesis is performed in both the craniocaudal and mediolateral oblique views along with computer-aided detection (CAD). Synthesized 2D images are generated from the tomosynthesis. FINDINGS: There are scattered areas of fibroglandular density (ACR BI-RADS breast composition Category b). There are no significant masses, abnormal calcifications, or other abnormalities. MM/MM tomosynthesis screening BI IMPRESSION: There are no significant changes from prior study. ASSESSMENT: BI-RADS 1: Negative RECOMMENDATION: Routine annual mammography screening. This patient's information was entered into a reminder system with a target due date for their next mammogram.
== END 2022-05-04 14:50 | disposition home or self-care (01) ==
LOC: HO.MAMMO 14:49
PROVIDERS: Visit Provider Family Medicine
DX: Z12.31 Encounter for screening mammogram for malignant neoplasm of breast (principal)
CPT/HCPCS: 77063; 77067

== ENCOUNTER 2022-05-24 09:54 | Outpatient (REF) | payer MEDICAID, SELFPAY ==
--- NOTE | 2022-05-24 10:57 | PFT_ITS ---
Forced vital capacity 70%, FEV1 75%. FEV1/FVC ratio is 86. [id number] 89% and MVV 86%. Postbronchodilator therapy, there is no significant change. Total lung capacity 72%. Residual volume 78%. Diffusion capacity 65%. CONCLUSION: 1. There is no evidence of obstructive airway disorder. 2. Mild to moderate degree of restrictive pulmonary disease. 3. No significant response to bronchodilator therapy. MD ANTOLIN Kovacs/LIUDMILA / [id number]
== END 2022-05-24 09:55 | disposition home or self-care (01) ==
LOC: HO.RESP 09:54
PROVIDERS: PCP Family Medicine; Visit Provider Internal Medicine Pulmonary Disease
DX: J45.909 Unspecified asthma, uncomplicated (principal)
CPT/HCPCS: 94060; 94727; 94729

== ENCOUNTER → 2022-05-25 13:00 | Outpatient (BNVA) | payer MEDICAID, SELFPAY | PROVIDERS: PCP Family Medicine; Visit Provider Internal Medicine Pulmonary Disease | DX: J45.909 Unspecified asthma, uncomplicated (principal); J90 Pleural effusion, not elsewhere classified | CPT/HCPCS: 99212 ==

== ENCOUNTER 2022-06-09 13:59 | Emergency (ER) | payer MEDICAID, SELFPAY ==
[2022-06-09 14:31] VITALS: BP 110/76; PULSE 104; RESP 16; TEMP 36.7; O2SAT 95; BMI 27.1
[2022-06-09] MEDS: Acetaminophen 325 MG TABLET 650 MG PO (14:43)
[2022-06-09 15:03] LABS: MANUAL DIFF FLAG NO
[2022-06-09 15:09] LABS: Eosinophils Absolute Auto 0.5 X10*3/uL (0.0-0.4); Eosinophils Percent Auto 5.4 % (0-4); Hematocrit 44.6 % (37.0-47.0); Hemoglobin 13.4 g/dl (12.0-16.0); Imm Gran Abs Auto 0.03 X10*3/uL (0.00-0.03); Imm Gran Pct Auto 0.3 % (0.0-0.4); Lymphocytes Percent Auto 20.3 % (20-40); Mean Corpuscular Hemoglobin 23.8 pg (27.0-33.0); Mean Corpuscular Volume 79.1 fL (80.0-98.0); Mean Platelet Volume 9.3 fL (9.4-12.3); Monocytes Absolute Auto 0.5 X10*3/uL (0.1-1.2); Monocytes Percent Auto 4.9 % (2-11); Neutrophils Percent Auto 69.1 % (45-73); Platelet Count 323 X10*3/uL (160-400); Red Blood Count 5.64 X10*6/uL (4.20-5.50); Red Cell Distribution Width 14.8 % (11.0-16.0); White Blood Count 10.1 X10*3/uL (4.8-10.8)
[2022-06-09 15:28] LABS: Alanine Aminotransferase 28 U/L (0-31); Albumin Level 4.2 g/dL (3.5-5.0); Alkaline Phosphatase 233 U/L (39-117); Anion Gap 14 (12-20); Aspartate Amino Transferase 23 U/L (5-31); Bilirubin Total 0.7 mg/dL (0.0-1.0); Blood Urea Nitrogen 11 mg/dL (9-16); Calcium 9.8 mg/dL (8.4-10.2); Carbon Dioxide 29 mmol/L (22-29); Chloride 101 mmol/L (96-108); Creatinine Clr Calc Pharmacy 52.4; Estimated Glomerular Filt Rate 54; Glucose Random 125 mg/dL (60-115); Lipase 37 U/L (8-78); Potassium 4.9 mmol/L (3.3-5.1); Sodium 139 mmol/L (135-145); Total Protein 7.8 g/dL (6.5-8.0)
[2022-06-09 15:33] LABS: Troponin-I High Sensitivity 4.7 ng/L (<3.5-17.0)
--- NOTE | 2022-06-09 20:57 | ECG_ITS ---
Test Reason : EPIGASTRIC PAIN Blood Pressure : / mmHG Vent. Rate : 099 BPM Atrial Rate : 099 BPM P-R Int : 160 ms QRS Dur : 080 ms QT Int : 386 ms P-R-T Axes : 048 -10 061 degrees QTc Int : 495 ms Normal sinus rhythm Cannot rule out Anterior infarct , age undetermined Abnormal ECG When compared to the previous EKG of No significant changes seen Referred By: Siomara Elizabeth Electronically Signed By:RICHELLE MALDONADO MD
--- NOTE | 2022-06-09 21:16 | ED.ABDPAIN ---
HPI - Abdominal Pain General Chief Complaint: Abdominal Pain Stated Complaint: ABD PAIN Time Seen by Provider: 06/09/22 20:55 Source: patient Mode of arrival: ambulatory Limitations: no limitations History of Present Illness HPI narrative: Patient comes to the emergency room complaining of 3 days of epigastric pain. Patient states that is much worse when she eats, the pain started almost immediately. Patient has been diagnosed with GERD in the past, takes Prilosec daily. Patient has never had an upper endoscopy. Patient denies nausea vomiting or diarrhea, no weight loss, no URI or UTI symptoms Related Data Home Medications Medication Instructions Recorded Confirmed amitriptyline 50 mg tablet 50 mg PO DAILY 08/03/21 03/17/22 omeprazole 20 mg capsule,delayed 20 mg PO DAILY 08/03/21 03/17/22 release sertraline 100 mg tablet 100 mg PO DAILY 08/03/21 03/17/22 tramadol 50 mg tablet 50 mg PO DAILY 08/03/21 03/17/22 levalbuterol tartrate 45 2 puff PO Q6H 09/14/21 03/17/22 mcg/actuation aerosol inhaler (Xopenex HFA) clonidine HCl 0.1 mg tablet 1 tab PO BEDTIME 03/17/22 03/17/22 cyanocobalamin (vitamin B-12) 1 tab PO DAILY 03/17/22 03/17/22 1,000 mcg tablet dapagliflozin 10 mg tablet 1 tab PO DAILY 03/17/22 03/17/22 (Farxiga) ergocalciferol (vitamin D2) 1,250 1 cap PO OWENS 03/17/22 03/17/22 mcg (50,000 unit) capsule ferrous sulfate 325 mg (65 mg 1 tab PO BID 03/17/22 03/17/22 iron) tablet (FeroSul) hydroxyzine pamoate 50 mg capsule 1 cap PO BEDTIME 03/17/22 03/17/22 metoprolol tartrate 50 mg tablet 1 tab PO BID 03/17/22 03/17/22 Previous Rx's Medication Instructions Recorded albuterol sulfate 2.5 mg/0.5 mL 5 mg inhalation Q4H PRN shortness 03/17/22 solution for nebulization of breath or wheezing #30 ea albuterol sulfate 90 mcg/actuation 2 puff inhalation Q4-6H PRN 03/17/22 aerosol inhaler shortness of breath or wheezing #6.7 grams fluticasone propionate 50 2 spray intranasal DAILY #16 grams 03/17/22 mcg/actuation nasal spray,suspension (Flonase Allergy Relief) insulin glargine 100 unit/mL (3 20 unit (0.2 mL) subcut QPM #3 mL 03/22/22 mL) subcutaneous pen nicotine (polacrilex) 2 mg gum 2 mg buccal Q2H PRN nicotine 03/22/22 cravings #100 ea pen needle, diabetic 31 gauge x #50 ea 03/22/22 3/16 (Pen Needle) sucralfate 1 gram tablet 1 g PO BID #60 tabs 06/09/22 Allergies Allergy/AdvReac Type Severity Reaction Status Date / Time aspirin [Aspirin] Allergy Intermediate EYES Verified 06/09/22 14:35 SWELLING Penicillins Allergy Intermediate RASH Verified 06/09/22 14:35 citalopram Allergy Unknown chest pain Verified 06/09/22 14:35 Diltiazem HCl Allergy Unknown Unknown Uncoded 06/09/22 14:35 Review of Systems Review of Systems Constitutional : No Weight loss, No Fever, No Chills, No Night Sweats, No Fatigue, No Malaise ENT/Mouth : No Hearing loss, No Ear Pain, No Nasal Congestion, No Sinus Pain, No Hoarseness, No sore throat, No Rhinorrhea, No Swallowing Difficulty Eyes: No Eye Pain, No Swelling, No Redness, No Foreign Body, No Discharge, No Vision Changes Cardiovascular : No Chest Pain, No SOB, No Dyspnea on Exertion, No Orthopnea, No Edema, No Palpitations Respiratory : No Cough, No Sputum, No Wheezing, No Smoke Exposure, No Dyspnea Gastrointestinal : No Nausea, No Vomiting, No Diarrhea, No Constipation, complaining of epigastric burning sensation after meals Genitourinary : no irregular bleeding, No Dysuria, No Urinary Frequency, No Hematuria, No Urinary Incontinence, No Urgency, No Flank Pain, No Urinary Flow Changes, No Hesitancy Musculoskeletal : No joint pain, No Myalgias, No Joint Swelling Skin : No Skin Lesions, No rash Neuro : No Weakness, No Numbness, No Paresthesias, No Loss of Consciousness, No Dizziness, No Headache Psych : No Anxiety/Panic, No Depression, No SI/HI/AH/VH, No Social Issues, Heme/Lymph: No Bruising, No Bleeding,No Lymphadenopathy Endocrine : No Polyuria, No Polydipsia, No Temperature Intolerance [facility] Past Medical History Medical History Acute anxiety Acute respiratory failure with hypoxia THANH (acute kidney injury) Arthritis Asthma Asthma with acute exacerbation Bronchopneumonia Depression Diabetes Diabetic acidosis, type II GERD (gastroesophageal reflux disease) HTN (hypertension) Hx of renal calculi On beta mariaelena at home Pneumonia Right knee injury Tobacco dependence Surgical History History of hysterectomy Hx of arthroscopy of right knee Hx of cystoscopy Family History Family History Other No family history of coronary artery disease Social History Social History Household Members: None Housing: Apartment Patient Tobacco Use Status: Never used Tobacco Tobacco use type: Cigarette Cigarettes Per Day: 4 Second Hand Smoke Exposure: No Advance Directives: No Advance Directives Information Provided: No service: No Current occupational status: employed Physical Exam ED Vital Signs: Vital Signs - 24 hr 06/09/22 14:31 Temperature 98.1 F Pulse Rate 104 H Respiratory Rate 16 Blood Pressure 110/76 Pulse Oximetry 95 Oxygen Delivery Method Room Air BMI result Body Mass Index 27.1 Const Other: Appearance: Alert. Oriented X3. No acute distress. Eyes: Pupils equal, round and reactive to light. ENT: Pharynx normal. Neck: Normal inspection. Neck supple. No lymph nodes noted. No crepitus CVS: Normal heart rate and rhythm. Pulses normal. Normal S1 and S2 Respiratory: No respiratory distress. Breath sounds normal. No Wheezing. No rales Abdomen: Soft and nontender. No rigidity. No distention. Skin: Skin warm and dry. Normal skin color. Normal skin turgor. Extremities: No lower extremity edema. No Lacerations. No Rash Neuro: Oriented X 3. No motor deficit. No sensory deficit. Moving all extremities. No slurred speech. CN 2 through 12 grossly intact Psych: calm, cooperative, normal affect Course Course Course Narrative: Patient has very mild discomfort to palpation over the epigastric area, negative Wade sign. All discussed the labs with the patient, alk phos is elevated, chronic. I discussed with the patient that it is likely that her symptoms are secondary to GERD versus peptic ulcer versus duodenal ulcer. Patient being given 1 dose of GI cocktail Troponin and EKG within normal limits. Patient had good results with GI cocktail I discussed with the patient that she will likely benefit from an upper endoscopy, patient states she has been ears and on medication for gastritis, never had an endoscopy MDM - Abdominal Pain Lab Data Result diagrams: 06/09/22 14:57 06/09/22 14:57 Labs: Lab Results 06/09/22 06/09/22 06/09/22 Range/Units 14:57 14:57 14:57 WBC 10.1 (4.8-10.8) X10*3/uL RBC 5.64 H (4.20-5.50) X10*6/uL Hgb 13.4 (12.0-16.0) g/dl Hct 44.6 (37.0-47.0) % MCV 79.1 L (80.0-98.0) fL MCH 23.8 L (27.0-33.0) pg MCHC 30.0 L (31.0-35.0) g/dl RDW 14.8 (11.0-16.0) % Plt Count 323 D (160-400) X10*3/uL MPV 9.3 L (9.4-12.3) fL Immature Gran % (Auto) 0.3 (0.0-0.4) % Neut % (Auto) 69.1 (45-73) % Lymph % (Auto) 20.3 (20-40) % [place] % (Auto) 4.9 (2-11) % Eos % (Auto) 5.4 H (0-4) % Baso % (Auto) 0.0 (0-2) % Lymph # (Auto) 2.0 (1.2-4.9) X10*3/uL [place] # (Auto) 0.5 (0.1-1.2) X10*3/uL Eos # (Auto) 0.5 H (0.0-0.4) X10*3/uL Baso # (Auto) 0.0 (0.0-0.2) X10*3/uL Abs Immat Gran (auto) 0.03 (0.00-0.03) X10*3/uL Absolute Neuts (auto) 7.0 (2.0-8.3) x10*3/uL Absolute Nucleated RBC 0.000 (0.0-0.012) X10*3/uL Nucleated RBC % (auto) 0.0 (0.0-0.2) /100WBC Sodium 139 (135-145) mmol/L Potassium 4.9 (3.3-5.1) mmol/L Chloride 101 (96-108) mmol/L Carbon Dioxide 29 (22-29) mmol/L Anion Gap 14 (12-20) BUN 11 D (9-16) mg/dL Creatinine 1.05 (0.5-1.4) mg/dL Estim Creat Clear Calc 52.4 Estimated GFR 54 Random Glucose 125 H (60-115) mg/dL Calcium 9.8 (8.4-10.2) mg/dL Total Bilirubin 0.7 (0.0-1.0) mg/dL AST 23 D (5-31) U/L ALT 28 (0-31) U/L Alkaline Phosphatase 233 H D (39-117) U/L Troponin I High Sens 4.7 (<3.5-17.0) ng/L Total Protein 7.8 (6.5-8.0) g/dL Albumin 4.2 (3.5-5.0) g/dL Lipase 37 (8-78) U/L Discharge Plan Discharge Clinical Impression: Gastritis Patient Disposition: Home, Self-Care Instructions: Gastritis (ED), Diet for Stomach Ulcers and Gastritis (ED) Additional Instructions: Please follow-up with your primary care physician tomorrow. If you have any worsening or new symptoms, please return to the emergency room or call 911 Prescriptions: New sucralfate 1 gram tablet 1 g PO BID Qty: 60 0RF No Action levalbuterol tartrate [Xopenex HFA] 45 mcg/actuation HFA aerosol inhaler 2 puff PO Q6H albuterol sulfate 90 mcg/actuation HFA aerosol inhaler 2 puff inhalation Q4-6H PRN (Reason: shortness of breath or wheezing) Qty: 6.7 0RF fluticasone propionate [Flonase Allergy Relief] 50 mcg/actuation spray,suspension 2 spray intranasal DAILY Qty: 16 0RF Rx Instructions: administer into each nostril albuterol sulfate 2.5 mg/0.5 mL solution for nebulization 5 mg inhalation Q4H PRN (Reason: shortness of breath or wheezing) Qty: 30 0RF clonidine HCl 0.1 mg tablet 1 tab PO BEDTIME cyanocobalamin (vitamin B-12) 1,000 mcg tablet 1 tab PO DAILY hydroxyzine pamoate 50 mg capsule 1 cap PO BEDTIME ferrous sulfate [FeroSul] 325 mg (65 mg iron) tablet 1 tab PO BID metoprolol tartrate 50 mg tablet 1 tab PO BID ergocalciferol (vitamin D2) 1,250 mcg (50,000 unit) capsule 1 cap PO OWENS Farxiga 10 mg tablet 1 tab PO DAILY nicotine (polacrilex) 2 mg gum 2 mg buccal Q2H PRN (Reason: nicotine cravings) Qty: 100 0RF insulin glargine 100 unit/mL (3 mL) insulin pen 20 unit subcut QPM Qty: 3 0RF (DME) pen needle, diabetic [Pen Needle] 31 gauge x 3/16 needle See Rx Instructions .Route Qty: 50 0RF Rx Instructions: As directed sertraline 100 mg tablet 100 mg PO DAILY amitriptyline 50 mg tablet 50 mg PO DAILY omeprazole 20 mg capsule,delayed release(DR/EC) 20 mg PO DAILY tramadol 50 mg tablet 50 mg PO DAILY Referrals: Ailyn Mehta MD [Physician] - 3 days
[2022-06-09] MEDS: Lidocaine HCl Viscous 2 % 15 ML SOLUTION MUCOUS MEM (21:37)
[2022-06-09 22:39] LABS: Appearance Urine CLEAR; Color Urine YELLOW; Glucose Urine UA 500 MG/DL (NEG); Leukocyte Esterase Urine NEG (NEG); Nitrite Urine NEG (NEG); Urine Blood NEG (NEG); Urine Ketones NEG (NEG); Urine Protein NEG (NEG-TRACE)
== END 2022-06-09 22:36 | disposition home or self-care (01) ==
PROVIDERS: Emergency Provider Emergency Medicine; PCP Family Medicine
DX: K29.70 Gastritis, unspecified, without bleeding (principal); R10.13 Epigastric pain; E11.9 Type 2 diabetes mellitus without complications; K21.9 Gastro-esophageal reflux disease without esophagitis; F17.210 Nicotine dependence, cigarettes, uncomplicated; Z79.899 Other long term (current) drug therapy; Z79.4 Long term (current) use of insulin; Z79.02 Long term (current) use of antithrombotics/antiplatelets
CPT/HCPCS: 36415; 80053; 81003; 83690; 84484; 85025; 93005; 99283

== ENCOUNTER 2022-06-14 10:20 | Outpatient (REF) | payer MEDICAID, SELFPAY ==
[2022-06-14 12:03] LABS: Gamma Glutamyl Transpeptidase 547 U/L (7-33); Iron 48 mcg/dL (30-160); Percent Iron Saturation 15 % (15-50); Total Iron Binding Capacity 313 mcg/dL (228-428); Unsaturated Iron Binding 265 ug/dL
[2022-06-14 12:19] LABS: Ferritin 317 ng/mL (10-250)
== END 2022-06-14 10:21 | disposition home or self-care (01) ==
LOC: HO.WFDLDS 10:20
PROVIDERS: Visit Provider Physician Assistant
DX: R10.13 Epigastric pain (principal); Z01.818 Encounter for other preprocedural examination; R77.2 Abnormality of alphafetoprotein; D64.9 Anemia, unspecified; K52.9 Noninfective gastroenteritis and colitis, unspecified; K21.9 Gastro-esophageal reflux disease without esophagitis; R68.81 Early satiety; E11.65 Type 2 diabetes mellitus with hyperglycemia
CPT/HCPCS: 36415; 82728; 82977; 83540; 99212

== ENCOUNTER 2022-07-24 15:18 | Outpatient (REF) | payer MEDICAID, SELFPAY ==
--- NOTE | ~2022-07-24 | XR_ITS ---
EXAMINATION: XR CHEST CLINICAL INFORMATION: Pleural effusion. COMPARISON: Chest radiograph 03/17/2022. TECHNIQUE: 2 views of the chest were obtained. FINDINGS: Normal appearance of the cardiomediastinal silhouette. No focal airspace opacity, pleural effusion or pneumothorax. No acute osseous abnormalities. The imaged upper abdomen is within normal limits. XR/XR chest 2V IMPRESSION: No acute cardiopulmonary findings.
== END 2022-07-24 15:19 | disposition home or self-care (01) ==
LOC: HO.XRAY 15:18
PROVIDERS: PCP Family Medicine; Visit Provider Internal Medicine Pulmonary Disease
DX: J90 Pleural effusion, not elsewhere classified (principal)
CPT/HCPCS: 71046

== ENCOUNTER 2022-08-07 07:49 | Outpatient (REF) | payer MEDICAID, SELFPAY ==
--- NOTE | ~2022-08-07 | US_ITS ---
EXAMINATION: US ABDOMEN COMPLETE CLINICAL INFORMATION: Abnormal alpha-fetoprotein. COMPARISON: CT abdomen/pelvis 09/03/2019. TECHNIQUE: Real-time imaging of the abdominal viscera. FINDINGS: PANCREAS: Normal. ABDOMINAL AORTA: The proximal, mid, and distal segments are normal in caliber. INFERIOR VENA CAVA: Visualized portions are normal. LIVER: The liver is enlarged measuring 19 cm in length and demonstrates increased parenchymal echogenicity. Otherwise, liver contour appears smooth. No discrete focal lesion is noted. GALLBLADDER: The gallbladder wall is thickened measuring up to 0.5 cm and there is an equivocal positive Wade's sign. There is a nonspecific hyperechoic appearance of the gallbladder wall with some degree of posterior shadowing. This could be associated with calcifications or less likely air. There are a couple of polypoid lesions, largest measuring 0.7 cm. COMMON BILE DUCT: Normal in caliber measuring 3 cm in diameter. RIGHT KIDNEY: The kidney measures 11.1 cm in maximum dimension. Mild hydronephrosis. No nephrolithiasis or focal lesions. LEFT KIDNEY: The kidney measures 7.3 cm in maximum dimension. Cortical thinning. Mild hydronephrosis. Simple cyst in the upper pole measuring 1.4 cm for which no imaging follow-up is recommended. SPLEEN: There is a 0.8 cm homogeneously hyperechoic lesion in the spleen. The spleen measures 9.8 cm in maximum dimension. FREE FLUID: None. OTHER FINDINGS: Periportal lymphadenopathy measuring up to 2.4 cm. US/US abdomen complete IMPRESSION: Abnormal appearance of the gallbladder demonstrating several polyps largest measuring 0.7 cm, wall thickening and possible wall calcifications versus less likely air. Recommend clinical correlation for acute cholecystitis and also imaging correlation with a CT or MR of the abdomen to further characterize these findings. Hepatomegaly with increased parenchymal echogenicity, suggesting hepatic steatosis or hepatocellular disease. Atrophic left kidney. Mild bilateral hydronephrosis. Nonaggressive appearing echogenic lesion in the spleen could represent a hemangioma. This could be also characterized with the above recommended CT or MR. Nonspecific periportal lymphadenopathy. This critical result was discussed with Li Singer RN at 08/08/2022 3:48 PM and it was ascertained that the content and urgency of the report was understood at the time of direct communication.
== END 2022-08-07 07:50 | disposition home or self-care (01) ==
LOC: HO.US 07:49
PROVIDERS: Visit Provider Physician Assistant
DX: R77.2 Abnormality of alphafetoprotein (principal)
CPT/HCPCS: 76700

== ENCOUNTER 2022-08-09 18:24 | Emergency (ER) | payer MEDICAID, SELFPAY ==
--- NOTE | ~2022-08-09 | CT_ITS ---
EXAMINATION: CT ABDOMEN AND PELVIS WITHOUT CONTRAST CLINICAL INFORMATION: Right upper quadrant pain COMPARISON: 09/03/2019 TECHNIQUE: Multidetector volumetric imaging was performed from the superior aspect of the liver through the pubic symphysis. Sagittal and coronal reformatted images were obtained on the technologist's workstation. This CT examination was performed using dose optimization techniques as appropriate, variously including the following: *Automated exposure control *Adjustment of mA and/or kV according to patient size (this includes techniques or standardized protocols for targeted exams where dose is matched to indication/reason for exam; i.e. extremities or head) *Use of iterative reconstruction technique DLP: 435 mGy-cm FINDINGS: LUNG BASES: The visualized lung bases are unremarkable. LIVER, GALLBLADDER, AND BILIARY TREE: The liver is normal in size, shape, and attenuation. No focal hepatic lesion or biliary ductal dilatation is present. The gallbladder is contracted with no evidence of radiopaque gallstones, gallbladder wall thickening, or obvious pericholecystic inflammatory changes. PANCREAS: Unremarkable. SPLEEN: Unremarkable. ADRENAL GLANDS: Unremarkable. KIDNEYS AND URETERS: The kidneys are normal in size, shape, and attenuation. No hydronephrosis, hydroureter, or calculi seen. No perinephric stranding. 1.1 cm simple cyst at the upper pole of the left kidney. No follow-up imaging recommended. BLADDER: Unremarkable. GASTROINTESTINAL TRACT: The stomach is unremarkable. Normal caliber small bowel. No obstruction. No colonic wall thickening or inflammatory change. Moderate colonic stool burden. This is greatest in the right hemicolon. Normal appendix. ABDOMINAL WALL: No significant hernia is appreciated. LYMPH NODES: Normal. VASCULAR: Normal caliber aorta. Mild atherosclerotic calcifications. PELVIC VISCERA: Uterus not seen. No adnexal mass. OSSEOUS STRUCTURES: No acute or suspicious osseous abnormality. There is focal sclerosis seen within the L2 vertebral body. This is unchanged. CT/CT abdomen pelvis wo IV con IMPRESSION: No acute finding in the abdomen or pelvis. No inflammatory changes. Contracted gallbladder. Moderate stool burden which is greatest in the right hemicolon. Fleischner guidelines were followed.
[2022-08-09 19:04] VITALS: BP 114/77; PULSE 100; RESP 17; TEMP 36.9; O2SAT 99; BMI 26.5
[2022-08-09 19:24] LABS: MANUAL DIFF FLAG NO
[2022-08-09 19:27] LABS: Basophils Percent Auto 0.1 % (0-2); Eosinophils Absolute Auto 0.4 X10*3/uL (0.0-0.4); Eosinophils Percent Auto 4.2 % (0-4); Hematocrit 42.5 % (37.0-47.0); Hemoglobin 12.6 g/dl (12.0-16.0); Imm Gran Abs Auto 0.03 X10*3/uL (0.00-0.03); Imm Gran Pct Auto 0.3 % (0.0-0.4); Lymphocytes Absolute Auto 2.3 X10*3/uL (1.2-4.9); Lymphocytes Percent Auto 23.3 % (20-40); Mean Corpuscular HGB Conc 29.6 g/dl (31.0-35.0); Mean Corpuscular Hemoglobin 23.1 pg (27.0-33.0); Mean Corpuscular Volume 77.8 fL (80.0-98.0); Mean Platelet Volume 9.7 fL (9.4-12.3); Monocytes Absolute Auto 0.6 X10*3/uL (0.1-1.2); Monocytes Percent Auto 5.5 % (2-11); Neutrophils Absolute Auto 6.6 x10*3/uL (2.0-8.3); Neutrophils Percent Auto 66.6 % (45-73); Platelet Count 307 X10*3/uL (160-400); Red Blood Count 5.46 X10*6/uL (4.20-5.50); Red Cell Distribution Width 15.4 % (11.0-16.0)
[2022-08-09 19:44] LABS: Alanine Aminotransferase 23 U/L (0-31); Alkaline Phosphatase 215 U/L (39-117); Anion Gap 17 (12-20); Aspartate Amino Transferase 22 U/L (5-31); Bilirubin Total 0.4 mg/dL (0.0-1.0); Blood Urea Nitrogen 20 mg/dL (9-16); Calcium 9.5 mg/dL (8.4-10.2); Carbon Dioxide 25 mmol/L (22-29); Chloride 102 mmol/L (96-108); Creatinine Clr Calc Pharmacy 43.1; Estimated Glomerular Filt Rate 42; Glucose Random 126 mg/dL (60-115); Lipase 33 U/L (8-78); Potassium 4.5 mmol/L (3.3-5.1); Sodium 139 mmol/L (135-145); Total Protein 7.7 g/dL (6.5-8.0)
--- NOTE | 2022-08-10 01:41 | ED.ABDPAIN ---
HPI - Abdominal Pain General Chief Complaint: Abdominal Pain Stated Complaint: Stomach & Back Pain Time Seen by Provider: 08/10/22 01:40 Source: patient Mode of arrival: ambulatory Limitations: no limitations History of Present Illness HPI narrative: Patient with pain upper abdomen for long time had ultrasound done on 08/07 which shows several polyps measuring 0.7 cm wall thickening and possible wall calcification possible acute cholecystitis patient was called by PCP to go to the hospital for further evaluation patient has chronic pain for last few months associated with nausea and vomiting off and on no fever no chills no urinary symptoms Related Data Home Medications Medication Instructions Recorded Confirmed amitriptyline 50 mg tablet 50 mg PO DAILY 08/03/21 03/17/22 omeprazole 20 mg capsule,delayed 20 mg PO DAILY 08/03/21 03/17/22 release sertraline 100 mg tablet 100 mg PO DAILY 08/03/21 03/17/22 tramadol 50 mg tablet 50 mg PO DAILY 08/03/21 03/17/22 levalbuterol tartrate 45 2 puff PO Q6H 09/14/21 03/17/22 mcg/actuation aerosol inhaler (Xopenex HFA) clonidine HCl 0.1 mg tablet 1 tab PO BEDTIME 03/17/22 03/17/22 cyanocobalamin (vitamin B-12) 1 tab PO DAILY 03/17/22 03/17/22 1,000 mcg tablet dapagliflozin 10 mg tablet 1 tab PO DAILY 03/17/22 03/17/22 (Farxiga) ergocalciferol (vitamin D2) 1,250 1 cap PO OWENS 03/17/22 03/17/22 mcg (50,000 unit) capsule ferrous sulfate 325 mg (65 mg 1 tab PO BID 03/17/22 03/17/22 iron) tablet (FeroSul) hydroxyzine pamoate 50 mg capsule 1 cap PO BEDTIME 03/17/22 03/17/22 metoprolol tartrate 50 mg tablet 1 tab PO BID 03/17/22 03/17/22 Previous Rx's Medication Instructions Recorded albuterol sulfate 2.5 mg/0.5 mL 5 mg inhalation Q4H PRN shortness 03/17/22 solution for nebulization of breath or wheezing #30 ea albuterol sulfate 90 mcg/actuation 2 puff inhalation Q4-6H PRN 03/17/22 aerosol inhaler shortness of breath or wheezing #6.7 grams fluticasone propionate 50 2 spray intranasal DAILY #16 grams 03/17/22 mcg/actuation nasal spray,suspension (Flonase Allergy Relief) insulin glargine 100 unit/mL (3 20 unit (0.2 mL) subcut QPM #3 mL 03/22/22 mL) subcutaneous pen nicotine (polacrilex) 2 mg gum 2 mg buccal Q2H PRN nicotine 03/22/22 cravings #100 ea pen needle, diabetic 31 gauge x #50 ea 03/22/22 3/16 (Pen Needle) sucralfate 1 gram tablet 1 g PO BID #60 tabs 06/09/22 bisacodyl 5 mg tablet,delayed 10 mg PO ONCE colonoscopy prep 1 06/14/22 release (Dulcolax (bisacodyl)) day #2 tabs polyethylene glycol 3350 17 238 g PO ONCE 1 day #238 grams 06/14/22 gram/dose oral powder (Miralax) dicyclomine 20 mg tablet 20 mg PO QID PRN abdominal pain 08/10/22 #20 tabs Allergies Allergy/AdvReac Type Severity Reaction Status Date / Time aspirin [Aspirin] Allergy Intermediate EYES Verified 08/09/22 19:06 SWELLING Penicillins Allergy Intermediate RASH Verified 08/09/22 19:06 citalopram Allergy Unknown chest pain Verified 08/09/22 19:06 Diltiazem HCl Allergy Unknown Unknown Uncoded 06/09/22 14:35 Review of Systems Review of Systems Yes all other systems are reviewed and are negative [facility] Past Medical History Medical History Acute anxiety Acute respiratory failure with hypoxia THANH (acute kidney injury) Arthritis Asthma Asthma with acute exacerbation Bronchopneumonia Depression Diabetes Diabetic acidosis, type II GERD (gastroesophageal reflux disease) HTN (hypertension) Hx of renal calculi On beta mariaelena at home Pneumonia Right knee injury Tobacco dependence Surgical History History of hysterectomy Hx of arthroscopy of right knee Hx of cystoscopy Family History Family History Other No family history of coronary artery disease Social History Social History Household Members: None Housing: Apartment Patient Tobacco Use Status: Never used Tobacco Tobacco use type: Cigarette Cigarettes Per Day: 4 Second Hand Smoke Exposure: No Advance Directives: No Advance Directives Information Provided: Yes service: No Current occupational status: employed Physical Exam ED Vital Signs: Vital Signs - 24 hr 08/09/22 19:04 08/10/22 01:55 Temperature 98.5 F 98.8 F Pulse Rate 100 86 Respiratory Rate 17 18 Blood Pressure 114/77 114/68 Pulse Oximetry 99 98 Oxygen Delivery Method Room Air Room Air BMI result Body Mass Index 26.5 Appearance: Alert. Oriented X3. No acute distress. Eyes: PERRLA, No Nystagmus ENT: Pharynx normal. Oral Mucosa moist Neck: Normal inspection. Neck supple. CVS: Normal heart rate and rhythm. Pulses normal. Respiratory: No respiratory distress. Equal air entry bilateral, no wheezing/rales/rhonchi Abdomen: Soft , tenderness right upper quadrant no guarding or rebound tenderness Bowel sounds are present, no mass palpable, no CVA tenderness Skin: Skin warm and dry. Normal skin color. Normal skin turgor. Extremities: No lower extremity edema. No calf tenderness Neuro: Oriented X 3. MDM - Abdominal Pain MDM Narrative Medical decision making narrative: Patient has stable labs normal LFTs questionable gallbladder polyp sent here, To rule out cholecystitis , CT scan without any acute inflammatory findings discharge patient home on dicyclomine Medical Records Attestation: I reviewed the patient's medical records. Lab Data Attestation: I reviewed the patient's lab results. Result diagrams: 08/09/22 19:11 08/09/22 19:11 Labs: Lab Results 08/09/22 08/09/22 08/10/22 Range/Units 19:11 19:11 02:01 WBC 10.0 (4.8-10.8) X10*3/uL RBC 5.46 (4.20-5.50) X10*6/uL Hgb 12.6 (12.0-16.0) g/dl Hct 42.5 (37.0-47.0) % MCV 77.8 L (80.0-98.0) fL MCH 23.1 L (27.0-33.0) pg MCHC 29.6 L (31.0-35.0) g/dl RDW 15.4 (11.0-16.0) % Plt Count 307 (160-400) X10*3/uL MPV 9.7 (9.4-12.3) fL Immature Gran % (Auto) 0.3 (0.0-0.4) % Neut % (Auto) 66.6 (45-73) % Lymph % (Auto) 23.3 (20-40) % Mercer % (Auto) 5.5 (2-11) % Eos % (Auto) 4.2 H (0-4) % Baso % (Auto) 0.1 (0-2) % Lymph # (Auto) 2.3 (1.2-4.9) X10*3/uL Mercer # (Auto) 0.6 (0.1-1.2) X10*3/uL Eos # (Auto) 0.4 (0.0-0.4) X10*3/uL Baso # (Auto) 0.0 (0.0-0.2) X10*3/uL Abs Immat Gran (auto) 0.03 (0.00-0.03) X10*3/uL Absolute Neuts (auto) 6.6 (2.0-8.3) x10*3/uL Absolute Nucleated RBC 0.000 (0.0-0.012) X10*3/uL Nucleated RBC % (auto) 0.0 (0.0-0.2) /100WBC Sodium 139 (135-145) mmol/L Potassium 4.5 (3.3-5.1) mmol/L Chloride 102 (96-108) mmol/L Carbon Dioxide 25 (22-29) mmol/L Anion Gap 17 (12-20) BUN 20 H D (9-16) mg/dL Creatinine 1.31 (0.5-1.4) mg/dL Estim Creat Clear Calc 43.1 Estimated GFR 42 Random Glucose 126 H (60-115) mg/dL Calcium 9.5 (8.4-10.2) mg/dL Total Bilirubin 0.4 (0.0-1.0) mg/dL AST 22 (5-31) U/L ALT 23 (0-31) U/L Alkaline Phosphatase 215 H (39-117) U/L Total Protein 7.7 (6.5-8.0) g/dL Albumin 4.0 (3.5-5.0) g/dL Lipase 33 (8-78) U/L Urine Color Yellow Urine Appearance Clear Urine pH 6.0 (5.0-9.0) Ur Specific [place] 1.020 (1.005-1.025) Urine Protein Negative (Neg-Trace) mg/dL Urine Glucose (UA) >=1000 H (Negative) mg/dL Urine Ketones Negative (Negative) mg/dL Urine Blood Negative (Negative) Urine Nitrite Negative (Negative) Ur Leukocyte Esterase Trace H (Negative) Urine RBC 0-2 (0-2) /HPF Urine WBC 0-5 (0-5) /HPF Ur Squamous Epith Cells 0-2 (0-2) /HPF Urine Bacteria None Seen (None Seen) Hyaline Casts 0-2 (0-2) /LPF Discharge Plan Discharge Clinical Impression: Abdominal pain Patient Disposition: Home, Self-Care Instructions: Abdominal Pain (ED) Additional Instructions: No findings of cholecystitis seen in the CT scan take pain medication as advised and follow with PCP / gastroenterology Prescriptions: New dicyclomine 20 mg tablet 20 mg PO QID PRN (Reason: abdominal pain) Qty: 20 0RF No Action levalbuterol tartrate [Xopenex HFA] 45 mcg/actuation HFA aerosol inhaler 2 puff PO Q6H albuterol sulfate 90 mcg/actuation HFA aerosol inhaler 2 puff inhalation Q4-6H PRN (Reason: shortness of breath or wheezing) Qty: 6.7 0RF fluticasone propionate [Flonase Allergy Relief] 50 mcg/actuation spray,suspension 2 spray intranasal DAILY Qty: 16 0RF Rx Instructions: administer into each nostril albuterol sulfate 2.5 mg/0.5 mL solution for nebulization 5 mg inhalation Q4H PRN (Reason: shortness of breath or wheezing) Qty: 30 0RF clonidine HCl 0.1 mg tablet 1 tab PO BEDTIME cyanocobalamin (vitamin B-12) 1,000 mcg tablet 1 tab PO DAILY hydroxyzine pamoate 50 mg capsule 1 cap PO BEDTIME ferrous sulfate [FeroSul] 325 mg (65 mg iron) tablet 1 tab PO BID metoprolol tartrate 50 mg tablet 1 tab PO BID ergocalciferol (vitamin D2) 1,250 mcg (50,000 unit) capsule 1 cap PO OWENS Farxiga 10 mg tablet 1 tab PO DAILY nicotine (polacrilex) 2 mg gum 2 mg buccal Q2H PRN (Reason: nicotine cravings) Qty: 100 0RF insulin glargine 100 unit/mL (3 mL) insulin pen 20 unit subcut QPM Qty: 3 0RF (DME) pen needle, diabetic [Pen Needle] 31 gauge x 3/16 needle See Rx Instructions .Route Qty: 50 0RF Rx Instructions: As directed sucralfate 1 gram tablet 1 g PO BID Qty: 60 0RF sertraline 100 mg tablet 100 mg PO DAILY amitriptyline 50 mg tablet 50 mg PO DAILY omeprazole 20 mg capsule,delayed release(DR/EC) 20 mg PO DAILY tramadol 50 mg tablet 50 mg PO DAILY bisacodyl [Dulcolax (bisacodyl)] 5 mg tablet,delayed release (DR/EC) 10 mg PO ONCE 1 Days Qty: 2 0RF Rx Instructions: Take 2 tablets by mouth at 12:00pm the day before your procedure. polyethylene glycol 3350 [Miralax] 17 gram/dose powder 238 g PO ONCE 1 Days Qty: 238 0RF Rx Instructions: Take as directed by mouth the day before your procedure.
[2022-08-10 01:55] VITALS: BP 114/68; PULSE 86; RESP 18; TEMP 37.1; O2SAT 98
[2022-08-10 02:09] LABS: Appearance Urine Clear; Color Urine Yellow; Glucose Urine UA >=1000 mg/dL (Negative); Leukocyte Esterase Urine Trace (Negative); Nitrite Urine Negative (Negative); UMIC TRIGGER UACC YES; Urine Blood Negative (Negative); Urine Ketones Negative (Negative); Urine Protein Negative (Neg-Trace)
[2022-08-10 02:14] LABS: Bacteria Urine None Seen (None Seen); Hyaline Casts Urine 0-2 /LPF (0-2); RBC Urine 0-2 /HPF (0-2); Squamous Epithelial Cell Urine 0-2 /HPF (0-2); WBC Urine 0-5 /HPF (0-5)
--- NOTE | 2022-08-10 04:45 | PC.NURSE ---
Attempted to medicated and discharge pt. Pt no longer in room . Notified SONNY Geronimo.
== END 2022-08-10 04:46 | disposition home or self-care (01) ==
PROVIDERS: Emergency Provider Internal Medicine; PCP Family Medicine
DX: R10.30 Lower abdominal pain, unspecified (principal); M54.50 Low back pain, unspecified; Z79.899 Other long term (current) drug therapy; F17.210 Nicotine dependence, cigarettes, uncomplicated; Z71.6 Tobacco abuse counseling
CPT/HCPCS: 36415; 74176; 80053; 81001; 83690; 85025; 99283; 99284

== ENCOUNTER → 2022-08-17 13:37 | Outpatient (BNVA) | payer MEDICAID, SELFPAY | PROVIDERS: PCP Family Medicine; Referring Provider Family Medicine; Visit Provider Physician Assistant | DX: R74.8 Abnormal levels of other serum enzymes (principal) | CPT/HCPCS: 99212 ==

== ENCOUNTER → 2022-09-15 08:06 | Outpatient (REF) | payer MEDICAID, SELFPAY ==
--- NOTE | ~2022-09-15 | NM_ITS ---
EXAMINATION: HIDA SCAN CLINICAL INFORMATION: Abnormal levels of serum enzymes. Elevated alkaline phosphatase. Epigastric pain. COMPARISON: None TECHNIQUE: Following intravenous administration of 5 mCi of 99m technetium mebrofenin, imaging over the right upper quadrant was obtained up to 2 hours. Gallbladder is visualized by 2 hours. At 2 hrs 1.3 mcg of CCK was given and imaging over the right upper quadrant was obtained up to 30 minutes. FINDINGS: There is normal hepatic uptake without focal defect. There is prompt CBD visualization by 61 minutes and small bowel by 31 minutes. Post-CCK the gallbladder ejection fraction at 30 minutes is 86%. NM/NM hepatobiliary w pharm IMPRESSION: Normal hepatic uptake. Patent CBD. Delayed visualization of gallbladder by 2 hours. Normal gallbladder ejection fraction post CCK measuring 86% at 30 minutes.
== END ==
LOC: HO.NUCMED 08:06
PROVIDERS: Visit Provider Physician Assistant
DX: R68.81 Early satiety (principal)
CPT/HCPCS: 78227; A9537

== ENCOUNTER 2022-09-29 14:51 | Outpatient (REF) | payer MEDICAID, SELFPAY ==
--- NOTE | ~2022-09-29 | XR_ITS ---
EXAMINATION: XR LUMBOSACRAL SPINE WITH OBLIQUES CLINICAL INFORMATION: Pain COMPARISON: Previous x-ray August [address] of the abdomen and pelvis July 2022 TECHNIQUE: AP, both oblique, and lateral views of the lumbar spine. Lateral view of the lumbosacral junction. FINDINGS: There is curvature of the lower lumbar spine to the right. Mild 2 mm anterior subluxation of L4 with respect L5. Bone alignment is otherwise normal. No fracture or dislocation. Small stable sclerotic focus in the right L2 vertebral body and pedicle similar to previous exam. Degenerative disc disease at L5-S1. Lower lumbar spine facet arthritis. No pars defects seen. Calcification seen on the lateral view anterior to the L3 vertebral body. When compared previous CT this likely represents aortic calcification. XR/XR lumbar spine 4V min IMPRESSION: Degenerative changes and mild scoliosis. Stable sclerotic lesion in the right L2 vertebral body and pedicle.
== END 2022-09-29 14:52 | disposition home or self-care (01) ==
LOC: HO.XRAY 14:51
PROVIDERS: Visit Provider Family Medicine
DX: M54.9 Dorsalgia, unspecified (principal)
CPT/HCPCS: 72110

== ENCOUNTER → 2022-10-26 07:23 | Outpatient (REF) | payer MEDICAID, SELFPAY ==
--- NOTE | ~2022-10-26 | NM_ITS ---
EXAMINATION: [place] RADIONUCLIDE SOLID FOOD GASTRIC EMPTYING 4-HOUR STUDY CLINICAL INFORMATION: Early satiety. COMPARISON: None. TECHNIQUE: A meal consisting of 8 ounces of Ensure-plus Brand tagged with 930 microcuries Tc-99m Sulfur Colloid, was administered orally to the patient. This fatty supplement was used because the patient could not tolerate eggs, and has been shown to closely mimic gastric emptying of labeled eggs. Images were obtained using a dual head gamma camera in the anterior and posterior projections over of the stomach immediately post ingestion and at hourly intervals up to 4 hours post ingestion. The anterior and posterior counts at each time interval were averaged using the geometric mean and expressed as percentage of the immediate post ingestion counts. FINDINGS: There is good visualization of activity in the stomach immediately post ingestion. As the study progresses, there is delayed clearance of activity from the stomach and delayed visualization of small bowel activity. By the end of the study, there is significant retention noted in the stomach. Retention in the stomach at each time interval was: 1 hour 96% (normal 37%-90%) 2 hours 83% (normal 30%-60%) 3 hours 66% 4 hours 49% (normal 0%-10%) AZ/[place] gastric emptying study IMPRESSION: Abnormal delayed 4 hour gastric emptying study. Ensure-plus Brand supplement was used instead of radio-labeled eggs because of the patient's intolerance to eggs. This supplement has been shown to closely mimic gastric emptying of labeled eggs. (For solid meal, rapid gastric emptying is less than 30% at 60 minutes. Delayed gastric emptying criteria is more than 60% remaining at 120 minutes or more than 10% at 240 minutes. The 4-hour value is the best discriminator of a normal or abnormal result).
== END ==
LOC: HO.NUCMED 07:23
PROVIDERS: PCP Family Medicine; Visit Provider Physician Assistant
DX: R11.2 Nausea with vomiting, unspecified (principal); R68.81 Early satiety; E11.65 Type 2 diabetes mellitus with hyperglycemia
CPT/HCPCS: 78264; A9541

== ENCOUNTER 2022-11-02 11:20 | Outpatient (REF) | payer MEDICAID, SELFPAY ==
--- NOTE | 2022-11-02 09:45 | EMG_ITS ---
Right median and ulnar motor and sensory studies were performed. Right radial sensory study was performed and paraspinal muscles were tested with a needle. IMPRESSION: 1. Mild median neuropathy across carpal tunnel. 2. Mild ulnar neuropathy across cubital tunnel. MD RUEL Garces/LIUDMILA / [id number]
== END 2022-11-02 11:21 | disposition home or self-care (01) ==
LOC: HO.NEURO 11:20
PROVIDERS: Visit Provider Family Medicine
DX: G56.93 Unspecified mononeuropathy of bilateral upper limbs (principal); M22.00 Recurrent dislocation of patella, unspecified knee
CPT/HCPCS: 95886; 95909

== ENCOUNTER → 2023-05-22 10:37 | Outpatient (BNVA) | payer MEDICAID, SELFPAY | PROVIDERS: PCP Family Medicine; Visit Provider Orthopaedic Surgery | DX: M18.11 Unilateral primary osteoarthritis of first carpometacarpal joint, right hand (principal); G56.01 Carpal tunnel syndrome, right upper limb; G56.21 Lesion of ulnar nerve, right upper limb; E11.9 Type 2 diabetes mellitus without complications; R20.0 Anesthesia of skin; R20.2 Paresthesia of skin | CPT/HCPCS: 99202 ==

== ENCOUNTER → 2023-05-24 10:54 | Outpatient (BNVA) | payer MEDICAID, SELFPAY | PROVIDERS: PCP Family Medicine; Visit Provider Physician Assistant | DX: R10.13 Epigastric pain (principal); R10.11 Right upper quadrant pain; K21.9 Gastro-esophageal reflux disease without esophagitis; K82.9 Disease of gallbladder, unspecified; K58.9 Irritable bowel syndrome, unspecified; R68.81 Early satiety; R77.2 Abnormality of alphafetoprotein; R74.8 Abnormal levels of other serum enzymes | CPT/HCPCS: 99212 ==

== ENCOUNTER 2023-07-11 09:59 | Outpatient (AMB) | payer MEDICAID, SELFPAY ==
--- NOTE | 2023-07-11 09:59 | A.OFFVIS_ITS ---
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 Clark Driver Required: Yes Clark Driver Language: Radio Program Director Name: Emelina [id number] [employer] I[employer] Accompanied by: Self / Same As Patient Allergies aspirin [Aspirin] Allergy (Intermediate, Verified 07/11/23 10:02) EYES SWELLING Penicillins Allergy (Intermediate, Verified 07/11/23 10:02) RASH citalopram Allergy (Unknown, Verified 07/11/23 10:02) chest pain Diltiazem HCl Allergy (Unknown, Uncoded 07/11/23 10:02) Unknown Medication List - Last Reconciled 07/11/23 by Eduardo Dinh MD albuterol sulfate 5 mg inhalation Q4H PRN albuterol sulfate 90 mcg/actuation 2 puffs inhalation Q4-6H PRN amitriptyline 50 mg PO DAILY atorvastatin 20 mg PO BEDTIME budesonide-formoterol 160-4.5 mcg/actuation (Symbicort) 1 puff inhalation calcium carbonate 500 mg PO clonidine HCl 1 tab PO BEDTIME cyanocobalamin (vitamin B-12) 1 tab PO DAILY dapagliflozin propanediol (Farxiga) 1 tab PO DAILY dicyclomine 20 mg PO QID PRN dulaglutide (Trulicity) mg subcut QWEEK ergocalciferol (vitamin D2) 1 cap PO OWENS ferrous sulfate (FeroSul) 1 tab PO BID fluticasone propionate 50 mcg/actuation (Flonase Allergy Relief) 2 sprays intranasal DAILY gabapentin 0 mg PO hydroxyzine pamoate 1 cap PO BEDTIME insulin glargine 20 units (0.2 mL) subcut QPM lancets (TRUEplus Lancets) As directed levalbuterol tartrate 45 mcg/actuation (Xopenex HFA) 2 puffs PO Q6H lidocaine 5% (Lidoderm) 0 patches topical lisinopril 2.5 mg PO QAM metformin ER 500 mg PO methylcellulose (laxative) (Citrucel Sugar Free oral powder) 2 grams PO DAILY PRN metoclopramide HCl 5 mg PO QID metoprolol tartrate 1 tab PO BID omeprazole 20 mg PO DAILY omeprazole 40 mg (2 x 20 mg) PO DAILY 30 days pantoprazole 40 mg PO DAILY 30 days peg-electrolyte soln 420 gram 240 mL PO ONCE 1 day pen needle, diabetic (Pen Needle) As directed polyethylene glycol 3350 (Miralax) 17 grams PO DAILY sertraline 100 mg PO DAILY sucralfate 1 g PO BID tramadol 50 mg PO DAILY HPI HPI Comments History of Present Illness Details [age] year female referred to us for prolonged QT interval. She had EKG performed at primary care physician's office with QTC was 485. By her description she has carpal tunnel syndrome and will require carpal tunnel release and was being considered for that but after the abnormal during EKG she was advised not to undergo surgery and was referred to us. She has dyspnea on exertion with activities. She has history of asthma. She is a nonsmoker. She also gets some sharp noncardiac sounding chest discomfort. She has history of diabetes and hypertension. Blood pressure is borderline elevated. We performed EKG in our office and the QTC is 464 which is in the normal range at this point. She is saying 1 of her medications was cut to half dose recently. [facility] Medical History Acute anxiety Acute respiratory failure with hypoxia THANH (acute kidney injury) Arthritis Asthma Asthma with acute exacerbation Bronchopneumonia Depression Diabetes Diabetic acidosis, type II GERD (gastroesophageal reflux disease) HTN (hypertension) Hx of renal calculi On beta mariaelena at home Pneumonia Right knee injury Tobacco dependence Surgical History History of hysterectomy Hx of arthroscopy of right knee Hx of cystoscopy Family History Other No family history of coronary artery disease Social History (Updated 07/11/23 @ 10:03 by BIJU Matos) Household Members: None Housing: Apartment Alcohol intake: current Alcohol intake frequency: holidays/special occasions only Patient Tobacco Use Status: Former Tobacco user Quit Date: 2022 Years Smoked: 20 +/- Second Hand Smoke Exposure: No service: No Current occupational status: disabled Current occupation: right hand dominant Review of Systems Const Denies chills, Denies daytime sleepiness, Denies fatigue, Denies fever(s), Denies frequent falls, Denies night sweats, Denies snoring, Denies weakness, Denies weight gain and Denies weight loss Eyes Denies loss of vision ENT Denies dizziness and Denies hearing loss Card Denies chest pain, Denies chest pain with activity, Denies syncope, Denies rapid heart rate, Denies edema, Denies claudication, Denies leg edema, Denies lightheadedness, Denies palpitations, Denies dyspnea, Denies dyspnea on exertion and Denies orthopnea Resp Denies cough, Denies excessive phlegm production, Denies dyspnea, Denies dyspnea on exertion, Denies snoring and Denies wheezing GI Denies abdominal pain, Denies hematochezia, Denies change in bowel habits, Denies change in stool character, Denies heartburn, Denies nausea and Denies vomiting Denies hematuria, Denies urinary frequency and Denies dysuria Musc Denies arthralgias, Denies muscle weakness, Denies numbness and Denies tingling Skin/Breast Denies nail changes and Denies rash Neuro Denies Abnormal speech present, Denies dizziness, Denies syncope, Denies frequent falls, Denies loss of vision, Denies memory loss, Denies numbness, Denies tingling and Denies weakness Psych Denies depression and Denies memory loss Endo Denies fatigue and Denies palpitations Aller/Immun Denies wheezing Physical Exam Vital Signs: Last Vital Signs Pulse 86 07/11/23 10:01 BP 128/90 H 07/11/23 10:01 BMI result Body Mass Index 26.5 GENERAL APPEARANCE: in no acute distress, pleasant. NECK: no carotid bruit, no jugular venous distention. SKIN: no suspicious lesions, warm and dry. HEART: no murmurs, regular rate and rhythm. LUNGS: clear to auscultation bilaterally. ABDOMEN: soft, nontender. EXTREMITIES: no edema. PERIPHERAL PULSES: equal. NEUROLOGIC: No gross deficits, AAO X 3 Neuro Speech: No Abnormal speech present Office Procedures EKG Details: Sinus rhythm 86 beats per minute, normal axis, normal ECG, QTC 464 milliseconds. [id number], Complete Assessment & Plan Assessment & Plan (1) Dyspnea on exertion: Code(s): R06.09 - Other forms of dyspnea (2) Prolonged QT interval: Code(s): R94.31 - Abnormal electrocardiogram [ECG] [EKG] Plan 57-year-old female who is here for assessment of prolonged QT interval. She was due to get carpal tunnel surgery but this was canceled. Her QT interval is normal. She is on metoclopramide and hydroxyzine which can prolong the QT interval. Generally the effect on the QT prolongation is additive by multiple medications. I think Reglan should be substituted if there is concern for QT prolongation the future. I think she should have exercise stress tests before she proceeds with surgery because she has dyspnea on exertion and has risk factors for coronary disease. Continue same medications otherwise. Please substitute regular and if possible. If she goes for surgery certain inhaled anesthetic agents should be avoided as they can prolong QT interval. We will also assess how her QT interval response to exercise on treadmill. She should have once a year fasting lipid panel and being a diabetic her LDL target is less than 70. Thank you for allowing me to participate in the care of your patient. Please feel free to contact me if you have any questions. Orders: Orders CA stress test Today R06.09 - Other forms of dyspnea Coding Level of Care Code New Pt Level 4 (95689) Diagnoses Dyspnea on exertion R06.09 Prolonged QT interval R94.31 CPT Codes EKG - CPT: 17728-[id number], Complete ([id number])
[2023-07-11 10:01] VITALS: BP 128/90; PULSE 86; BMI 26.5
== END 2023-07-11 10:42 | disposition home or self-care (01) ==
LOC: HO.HCSM 10:00
PROVIDERS: PCP Family Medicine; Referring Provider Family Medicine; Visit Provider Internal Medicine Cardiovascular Disease
DX: R06.09 Other forms of dyspnea (principal); R94.31 Abnormal electrocardiogram [ECG] [EKG]
CPT/HCPCS: 93010; 99204

== ENCOUNTER → 2023-07-11 09:59 | Outpatient (BNVA) | payer MEDICAID, SELFPAY | PROVIDERS: PCP Family Medicine; Referring Provider Family Medicine; Visit Provider Internal Medicine Cardiovascular Disease | DX: R06.09 Other forms of dyspnea (principal); R94.31 Abnormal electrocardiogram [ECG] [EKG] | CPT/HCPCS: 93005; 99202 ==

== ENCOUNTER → 2023-07-23 10:37 | Outpatient (REF) | payer MEDICAID, SELFPAY ==
--- NOTE | 2023-07-23 10:39 | CA_ITS ---
Acquisition Time: 2023-07-23 10:46:42 Total Exercise Time: 00:05:01 Test Indications: CHEST PAIN Medications: SEE H Protocol: SHANEL Max HR: 146 BPM 89% of Pred: 164 BPM Max BP: 134/070 mmHG Max Work Load: 7.0 METS Exercise stress test exercise 5 min 1 sec of Shanel protocol achieving 89% of Shanel protocol with mild to moderate SOB, no chest discomfort, with isolated PVCs, with normotensive response to exercise, without EKG changes. Test reviewed with Dr. Dinh/ Referred By: Eduardo Dinh Overread By: Samara Ware
== END ==
LOC: HO.CARD 10:37
PROVIDERS: PCP Family Medicine; Visit Provider Internal Medicine Cardiovascular Disease
DX: R06.09 Other forms of dyspnea (principal)
CPT/HCPCS: 93017

== ENCOUNTER → 2023-07-23 10:39 | Outpatient (BNV) | payer MEDICAID, SELFPAY | PROVIDERS: PCP Family Medicine; Visit Provider Nurse Practitioner | DX: R07.9 Chest pain, unspecified (principal); R06.02 Shortness of breath | CPT/HCPCS: 93016; 93018 ==

== ENCOUNTER 2023-07-31 12:52 | Outpatient (REF) | payer MEDICAID, SELFPAY ==
--- NOTE | ~2023-07-31 | XR_ITS ---
EXAMINATION: XR CHEST CLINICAL INFORMATION: Unspecified asthma, uncomplicated COMPARISON: June 2022. TECHNIQUE: 2 views of the chest were obtained. FINDINGS: No airspace infiltrate or vascular congestion observed. Cardiac size appears within normal limits. There is small linear atelectatic change in the left costophrenic angle. Pleural surfaces appear to be clear. There are small thoracic spondylosis. XR/XR chest 2V IMPRESSION: Small linear atelectatic change in the left costophrenic angle. No dominant consolidations or vascular congestion.
== END 2023-07-31 12:53 | disposition home or self-care (01) ==
LOC: HO.XRAY 12:52
PROVIDERS: PCP Family Medicine; Visit Provider Internal Medicine Pulmonary Disease
DX: J45.909 Unspecified asthma, uncomplicated (principal); J90 Pleural effusion, not elsewhere classified
CPT/HCPCS: 71046; 99212

== ENCOUNTER 2023-07-31 12:52 | Outpatient (AMB) | payer MEDICAID, SELFPAY ==
--- NOTE | 2023-07-31 12:53 | A.OFFVIS_ITS ---
Intake Vital Signs 07/31/23 12:54 Height 5 ft 2 in Weight 149 lb 14.629 oz BMI 27.4 BP 110/62 Blood Pressure Location Lt brachial Position Sitting Pulse 95 Pulse Source Doppler Pulse Oximetry (%) 97 Oxygen Delivery Method Room Air Intake Visit Reasons: Asthma Allergies aspirin [Aspirin] Allergy (Intermediate, Verified 07/31/23 12:56) EYES SWELLING Penicillins Allergy (Intermediate, Verified 07/31/23 12:56) RASH citalopram Allergy (Unknown, Verified 07/31/23 12:56) chest pain Diltiazem HCl Allergy (Unknown, Uncoded 07/11/23 10:02) Unknown HPI Asthma HPI Details 57-year-old lady, former approximately 10 pack-year smoker, quit 2020, now followed for mild intermittent asthma, environmental allergies, and pleural effusion.? Patient has not completed her chest x-ray to document resolution of her prior parapneumonic effusion still.? She is minute Symbicort and albuterol MDI/nebs with suboptimal control of his symptoms today she also complains of discomfort in the area of right lower lobe. [facility] Medical History Acute anxiety Acute respiratory failure with hypoxia THANH (acute kidney injury) Arthritis Asthma Asthma with acute exacerbation Bronchopneumonia Depression Diabetes Diabetic acidosis, type II GERD (gastroesophageal reflux disease) HTN (hypertension) Hx of renal calculi On beta mariaelena at home Pneumonia Right knee injury Tobacco dependence Surgical History History of hysterectomy Hx of arthroscopy of right knee Hx of cystoscopy Family History Other No family history of coronary artery disease Social History Household Members: None Housing: Apartment Alcohol intake: current Alcohol intake frequency: holidays/special occasions only Patient Tobacco Use Status: Former Tobacco user Quit Date: 2022 Years Smoked: 20 +/- Second Hand Smoke Exposure: No service: No Current occupational status: disabled Current occupation: right hand dominant Review of Systems Const Denies daytime sleepiness, Denies excessive sweating, Denies fatigue, Denies fever(s), Denies lethargy, Denies malaise, Denies night sweats, Denies snoring and Denies weight loss Eyes Denies blurry vision and Denies itchy eyes ENT Denies nasal congestion, Denies post nasal drip, Denies sinus pain, Denies sinus pressure and Denies other ( Thrush) Card Denies chest pain, Denies pedal edema, Denies dyspnea, Reports dyspnea on exe rtion, Denies orthopnea and Denies paroxysmal nocturnal dyspnea Resp Denies cough, Denies hemoptysis, Denies excessive phlegm production, Denies dyspnea, Reports dyspnea on exertion, Denies snoring and Reports wheezing GI Denies abdominal pain and Denies heartburn Musc Denies myalgias, Denies arthralgias and Denies joint swelling Skin/Breast Denies rash Neuro Denies memory loss and Denies seizure-like activity Psych Denies abnormal sleep pattern, Denies anxiety and Denies memory loss Endo Denies excessive sweating, Denies fatigue and Denies heat intolerance Rogelio/Lymph Denies easy bruising Aller/Immun Denies itchy eyes, Denies seasonal rhinorrhea and Reports wheezing Physical Exam Vital Signs: Last Vital Signs Pulse 95 07/31/23 12:54 BP 110/62 07/31/23 12:54 Pulse Ox 97 07/31/23 12:54 Oxygen Delivery Method Room Air 07/31/23 12:54 BMI result Body Mass Index 27.4 Const General: no acute distress and alert Nutritional Appearance: not obese Orientation/consciousness: Other orientation findings ( oriented) HEENT Head: Yes atraumatic Eyes General: appearance normal, both eyes and all related structures Sclerae: sclerae normal EOM: EOMs intact bilaterally Neck Neck: Yes supple Lymphatic: no lymphadenopathy noted Resp Effort & Inspection: normal respiratory effort and no use of accessory muscles Auscultation: clear to auscultation bilaterally Cardio Rate: regular rate Rhythm: regular rhythm Heart sounds: no gallops, no murmurs and no rubs Skin General skin exam: other ( warm) Extrem General: No clubbing, No cyanosis and No edema Assessment & Plan Assessment & Plan (1) Asthma: Code(s): J45.909 - Unspecified asthma, uncomplicated Plan: Suboptimal control on Symbicort, will change to Trelegy. Continue albuterol MDI/nebs. (2) Pleural effusion: Code(s): J90 - Pleural effusion, not elsewhere classified Plan: Will obtain chest x-ray to document resolution of prior parapneumonic effusion. Orders: Orders XR chest 2V Today J45.909 - Unspecified asthma, uncomplicated Medications: New opomyvuvjpo-qzjealvxi-tdpbtkkw 200-62.5-25 mcg (Trelegy Ellipta) 1 inh inhalati on DAILY 30 days 1 ea 6RF J45.909 - Unspecified asthma, uncomplicated Coding Level of Care Code Est Pt Level 4 (19431) Diagnoses Asthma J45.909 Pleural effusion J90
[2023-07-31 12:54] VITALS: BP 110/62; PULSE 95; O2SAT 97; BMI 27.4
== END 2023-07-31 13:33 | disposition home or self-care (01) ==
PROVIDERS: PCP Family Medicine; Visit Provider Internal Medicine Pulmonary Disease
DX: J45.909 Unspecified asthma, uncomplicated (principal); J90 Pleural effusion, not elsewhere classified
CPT/HCPCS: 99214

== ENCOUNTER → 2023-08-14 19:30 | Outpatient (REF) | payer MEDICAID, SELFPAY | LOC: HO.SL 19:30 | PROVIDERS: PCP Family Medicine; Visit Provider Family Medicine | DX: G47.9 Sleep disorder, unspecified (principal); G47.61 Periodic limb movement disorder | CPT/HCPCS: 95810 ==

== ENCOUNTER → 2023-08-14 19:30 | Outpatient (BNV) | payer MEDICAID, SELFPAY | PROVIDERS: PCP Family Medicine; Visit Provider Internal Medicine | DX: G47.61 Periodic limb movement disorder (principal) | CPT/HCPCS: 95810 ==

== ENCOUNTER 2023-11-08 10:49 | Outpatient (AMB) | payer MEDICAID, SELFPAY ==
[2023-11-08 10:52] VITALS: BP 110/62; PULSE 95; O2SAT 99; BMI 25.3
--- NOTE | 2023-11-08 10:52 | MHC.OFFVIS ---
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 Patient has completed her chest x-ray that demonstrated resolution of her prior parapneumonic effusion.? She has been using Symbicort and albuterol MDI, still with suboptimal control of her symptoms as she has not received Trelegy. [facility] Medical History (Updated 11/08/23 @ 11:23 by Payam Saavedra MD) Pleural effusion Tobacco dependence Bronchopneumonia Diabetes THANH (acute kidney injury) Acute respiratory failure with hypoxia Pneumonia Asthma with acute exacerbation Asthma On beta mariaelena at home Hx of renal calculi Right knee injury Acute anxiety Depression GERD (gastroesophageal reflux disease) HTN (hypertension) Diabetic acidosis, type II Arthritis Surgical History History of hysterectomy Hx of arthroscopy of right knee Hx of cystoscopy Family History Other No family history of coronary artery disease Social History Household Members: None Housing: Apartment Alcohol intake: current Alcohol intake frequency: holidays/special occasions only Patient Tobacco Use Status: Former Tobacco user Quit Date: 2022 Years Smoked: 20 +/- Second Hand Smoke Exposure: No service: No Current occupational status: disabled Current occupation: right hand dominant Review of Systems Const Denies daytime sleepiness, Denies excessive sweating, Denies fatigue, Denies fever(s), Denies lethargy, Denies malaise, Denies night sweats, Denies snoring and Denies weight loss Eyes Denies blurry vision and Denies itchy eyes ENT Denies nasal congestion, Denies post nasal drip, Denies sinus pain, Denies sinus pressure and Denies other ( Thrush) Card Denies chest pain, Denies pedal edema, Denies dyspnea, Reports dyspnea on exertion, Denies orthopnea and Denies paroxysmal nocturnal dyspnea Resp Denies cough, Denies hemoptysis, Denies excessive phlegm production, Denies dyspnea, Reports dyspnea on exertion, Denies snoring and Reports wheezing GI Denies abdominal pain and Denies heartburn Musc Denies myalgias, Denies arthralgias and Denies joint swelling Skin/Breast Denies rash Neuro Denies memory loss and Denies seizure-like activity Psych Denies abnormal sleep pattern, Denies anxiety and Denies memory loss Endo Denies excessive sweating, Denies fatigue and Denies heat intolerance Rogelio/Lymph Denies easy bruising Aller/Immun Denies itchy eyes, Denies seasonal rhinorrhea and Reports wheezing Physical Exam Vital Signs: Last Vital Signs Pulse 95 11/08/23 10:52 BP 110/62 11/08/23 10:52 Pulse Ox 99 11/08/23 10:52 Oxygen Delivery Method Room Air 11/08/23 10:52 BMI result Body Mass Index 25.3 Const General: no acute distress and alert Nutritional Appearance: not obese Orientation/consciousness: Other orientation findings ( oriented) HEENT Head: Yes atraumatic Eyes General: appearance normal, both eyes and all related structures Sclerae: sclerae normal EOM: EOMs intact bilaterally Neck Neck: Yes supple Lymphatic: no lymphadenopathy noted Resp Effort & Inspection: normal respiratory effort and no use of accessory muscles Auscultation: clear to auscultation bilaterally Cardio Rate: regular rate Rhythm: regular rhythm Heart sounds: no gallops, no murmurs and no rubs Skin General skin exam: other ( warm) Extrem General: No clubbing, No cyanosis and No edema Assessment & Plan Assessment & Plan (1) Asthma: Code(s): J45.909 - Unspecified asthma, uncomplicated Plan: Suboptimally controlled on Symbicort, change to Trelegy. Continue albuterol MDI, if not improving, may consider immunologic therapy. Medications: Refilled nqeoxbfvfjm-aoptmwipy-gfeinykx 200-62.5-25 mcg (Trelegy Ellipta) 1 inh inhalation DAILY 1 ea 6RF 30 days J45.909 - Unspecified asthma, uncomplicated Coding Level of Care Code Est Pt Level 3 (72232) Diagnoses Asthma J45.909
== END 2023-11-08 11:28 | disposition home or self-care (01) ==
PROVIDERS: PCP Family Medicine; Visit Provider Internal Medicine Pulmonary Disease
DX: J45.909 Unspecified asthma, uncomplicated (principal)
CPT/HCPCS: 99213

== ENCOUNTER → 2023-11-08 10:49 | Outpatient (BNVA) | payer MEDICAID, SELFPAY | PROVIDERS: PCP Family Medicine; Visit Provider Internal Medicine Pulmonary Disease | DX: J45.909 Unspecified asthma, uncomplicated (principal) | CPT/HCPCS: 99212 ==

== ENCOUNTER 2023-11-16 14:38 | Outpatient (REF) | payer MEDICAID, SELFPAY ==
--- NOTE | ~2023-11-16 | US_ITS ---
EXAMINATION: US RETROPERITONEAL LIMITED (RENAL ONLY) CLINICAL INFORMATION: Right flank pain. History of kidney stone. COMPARISON: CT abdomen and pelvis 08/10/2022 and 09/03/2019. Ultrasound abdomen complete 08/07/2022. TECHNIQUE: Real-time imaging of the kidneys. FINDINGS: RIGHT KIDNEY: 11.0 x 3.7 x 4.4 cm (SAG x AP x TRV). The kidney is normal in size, contour, and echogenicity. Renal cortical thickness is normal. Cystic structure in right renal pelvis most likely a parapelvic cyst which needs no additional imaging or follow-up. Less likely isolated dilated lower pole calyx. No calculi or focal solid parenchymal lesions. No hydronephrosis. LEFT KIDNEY: 8.0 x 3.1 x 3.7 cm (SAG x AP x TRV). Kidney is small and atrophic with cortical thinning, similar to prior imaging. Renal cortical thickness is normal. No renal calculi or hydronephrosis. A benign 1.4 cm Bosniak class I renal cyst is noted which requires no additional imaging or follow up. No solid renal masses are seen. US/US renal BI IMPRESSION: 1. A cause for the patient's right flank pain has not been found. 2. Small atrophic left kidney with cortical thinning similar to prior imaging.
== END 2023-11-16 14:39 | disposition home or self-care (01) ==
LOC: HO.US 14:38
PROVIDERS: PCP Family Medicine; Visit Provider Family Medicine
DX: M54.9 Dorsalgia, unspecified (principal); Z87.442 Personal history of urinary calculi
CPT/HCPCS: 76775

== ENCOUNTER 2023-11-28 11:59 | Outpatient (AMB) | payer MEDICAID, SELFPAY ==
--- NOTE | 2023-11-28 12:12 | MHC.OFFVIS ---
Intake Vital Signs 11/28/23 12:17 Height 5 ft 2 in Weight 139 lb BMI 25.4 BP 105/63 Blood Pressure Location Lt brachial Position Sitting Pulse 88 Intake Visit Reasons: pt req follow up Intake Note: Patient follow up for constipation. Patient cc: constipation and bloating. Medical Authorization Specialist Required: Yes Medical Authorization Specialist Name: [facility] Accompanied by: Self / Same As Patient Allergies aspirin [Aspirin] Allergy (Intermediate, Verified 11/28/23 12:12) EYES SWELLING Penicillins Allergy (Intermediate, Verified 11/28/23 12:12) RASH citalopram Allergy (Unknown, Verified 11/28/23 12:12) chest pain Diltiazem HCl Allergy (Unknown, Uncoded 07/11/23 10:02) Unknown Medication List - Last Reconciled 11/28/23 by Ramandeep Sandhu PA-C albuterol sulfate 5 mg inhalation Q4H PRN albuterol sulfate 90 mcg/actuation 2 puffs inhalation Q4-6H PRN amitriptyline 50 mg PO DAILY atorvastatin 20 mg PO BEDTIME calcium carbonate 500 mg PO clonidine HCl 1 tab PO BEDTIME cyanocobalamin (vitamin B-12) 1 tab PO DAILY dapagliflozin propanediol (Farxiga) 1 tab PO DAILY dicyclomine 20 mg PO QID PRN dulaglutide (Trulicity) mg subcut QWEEK ergocalciferol (vitamin D2) 1 cap PO OWENS ferrous sulfate (FeroSul) 1 tab PO BID fluticasone propionate 50 mcg/actuation (Flonase Allergy Relief) 2 sprays intranasal DAILY [id number]-iqeuhnzjk-[id number] 200-62.5-25 mcg (Trelegy Ellipta) 1 inh inhalation DAILY 30 days gabapentin 0 mg PO hydroxyzine pamoate 1 cap PO BEDTIME insulin glargine 20 units (0.2 mL) subcut QPM lancets (TRUEplus Lancets) As directed levalbuterol tartrate 45 mcg/actuation (Xopenex HFA) 2 puffs PO Q6H lidocaine 5% (Lidoderm) 0 patches topical lisinopril 2.5 mg PO QAM metformin ER 500 mg PO methylcellulose (laxative) (Citrucel Sugar Free oral powder) 2 grams PO DAILY PRN metoclopramide HCl 5 mg PO QID metoprolol tartrate 1 tab PO BID omeprazole 40 mg (2 x 20 mg) PO DAILY 30 days peg-electrolyte soln 420 gram 240 mL PO ONCE 1 day pen needle, diabetic (Pen Needle) As directed polyethylene glycol 3350 (Miralax) 17 grams PO DAILY sertraline 100 mg PO DAILY sucralfate 1 g PO BID tramadol 50 mg PO DAILY HPI HPI Comments History of Present Illness Details A 58 y/o female seen - scheduled for EGD and colonoscopy [facility] Medical History (Updated 11/29/23 @ 14:57 by ALANNAH CookC) Elevated AFP Pleural effusion Tobacco dependence Bronchopneumonia Diabetes THANH (acute kidney injury) Acute respiratory failure with hypoxia Pneumonia Asthma with acute exacerbation Asthma On beta mariaelena at home Hx of renal calculi Right knee injury Acute anxiety Depression GERD (gastroesophageal reflux disease) HTN (hypertension) Diabetic acidosis, type II Arthritis Surgical History History of hysterectomy Hx of arthroscopy of right knee Hx of cystoscopy Family History Other No family history of coronary artery disease Social History Household Members: None Housing: Apartment Alcohol intake: current Alcohol intake frequency: holidays/special occasions only Patient Tobacco Use Status: Former Tobacco user Quit Date: 2022 Years Smoked: 20 +/- Second Hand Smoke Exposure: No service: No Current occupational status: disabled Current occupation: right hand dominant Physical Exam Vital Signs: Last Vital Signs Pulse 88 11/28/23 12:17 BP 105/63 11/28/23 12:17 BMI result Body Mass Index 25.4 Const General: cooperative and comfortable Orientation/consciousness: patient oriented x3 Resp Effort & Inspection: normal respiratory effort and able to speak in complete sentences Auscultation: clear to auscultation bilaterally, no rales, no rhonchi and no wheezes Cardio Rate: regular rate Rhythm: regular rhythm Heart sounds: S1 normal heart sound present and S2 normal heart sound present GI Palpation (GI): Soft to palpation and nontender Auscultation: normal bowel sounds Neuro General: patient oriented x3 Extrem General: Yes full ROM Psych Mental Status: mental status grossly normal Speech and movement: Clear speech present Affect: Labile affect present Attitude: cooperative Thought process: Normal thought process present Thought content: Normal thought content present Assessment & Plan Assessment & Plan (1) Diabetes: Comment: Reviewed medications Code(s): E11.9 - Type 2 diabetes mellitus without complications (2) GERD (gastroesophageal reflux disease): Comment: Compliance is questionable Code(s): K21.9 - Gastro-esophageal reflux disease without esophagitis Plan: Reflux precautions reviewed (3) Elevated alkaline phosphatase level: Code(s): R74.8 - Abnormal levels of other serum enzymes Plan: Update ultrasound Plan EGD/ colon- anesthesia consult-see Cardiology/pulmonary Discuss meds -reinforced importance of accurate medication insulin metformin Trulicity- take differrent days-!! Be sure to follow through with manager balance as schedule Orders: Orders EGD/[place] Combo - GI Use Only 11/28/23 E11.9 - Type 2 diabetes mellitus without complications, K21.9 - Gastro-esophageal reflux disease without esophagitis, R06.09 - Other forms of dyspnea, R94.31 - Abnormal electrocardiogram [ECG] [EKG], Z12.11 - Encounter for screening for malignant neoplasm of colon US abdomen complete 11/28/23 R77.2 - Abnormality of alphafetoprotein Medications: New bisacodyl (Dulcolax (bisacodyl)) Day before procedure, prep day Take 4 tablets by mouth upon awakening followed by large glass of water 20 mg (4 x 5 mg) PO ONCE 1 day 4 tabs 0RF colonoscopy prep Z12.11 - Encounter for screening for malignant neoplasm of colon polyethylene glycol 3350 (Miralax) Take as directed by mouth the day before your procedure. 238 grams PO ONCE 1 day PRN 238 grams 0RF laxative effect Discontinued swlcacduhzo-ktrfaunce-khmoxuyt 200-62.5-25 mcg (Trelegy Ellipta) Discontinued Reason: Doctor's Order 1 inh inhalation DAILY 30 days 1 ea 6RF J45.909 - Unspecified asthma, uncomplicated Patient Instructions: 58-year-old female multiple comorbidities, she is not a great historian. She is not follow-up through previously with endoscopy Schedule EGD colonoscopy Reviewed medications Discussed importance of discontinuing Trulicity does 1 week prior to procedure Evening before half dose insulin only as well as omit metformin, day of procedures no diabetes medications. Reviewed labs will get abdominal ultrasound Coding Level of Care Code Est Pt Level 4 (80050) Diagnoses Diabetes E11.9 GERD (gastroesophageal reflux disease) K21.9 Elevated alkaline phosphatase level R74.8 Time Spent (min) 35
[2023-11-28 12:17] VITALS: BP 105/63; PULSE 88; BMI 25.4
== END 2023-11-28 12:44 | disposition home or self-care (01) ==
PROVIDERS: PCP Family Medicine; Visit Provider Physician Assistant
DX: K21.9 Gastro-esophageal reflux disease without esophagitis (principal); E11.9 Type 2 diabetes mellitus without complications; R74.8 Abnormal levels of other serum enzymes
CPT/HCPCS: 99214

== ENCOUNTER → 2023-11-28 11:59 | Outpatient (BNVA) | payer MEDICAID, SELFPAY | PROVIDERS: PCP Family Medicine; Visit Provider Physician Assistant | DX: K21.9 Gastro-esophageal reflux disease without esophagitis (principal); E11.9 Type 2 diabetes mellitus without complications; R74.8 Abnormal levels of other serum enzymes | CPT/HCPCS: 99212 ==

== ENCOUNTER → 2023-12-14 13:44 | Outpatient (BNVA) | payer MEDICAID, SELFPAY | PROVIDERS: PCP Family Medicine; Visit Provider Urology ==

== ENCOUNTER 2023-12-21 08:55 | Outpatient (AMB) | payer MEDICAID, SELFPAY ==
--- NOTE | 2023-12-21 08:59 | A.OFFVIS_ITS ---
Intake Intake Visit Reasons: kidney stones Intake Note: NEW Patient presents today to established treatment for Kidney Stones: Meds- None Allergies to Antibiotic- Penicillins Blood Thinner- None Director Of Convention Services Required: Yes Director Of Convention Services Language: Photographic Plate Maker Name: BIJU Win/ALEXUS OVALLES Information Interpreted: non-clinical & clinical Accompanied by: Self / Same As Patient Allergies aspirin [Aspirin] Allergy (Intermediate, Verified 02/11/24 13:00) EYES SWELLING Penicillins Allergy (Intermediate, Verified 02/11/24 13:00) RASH citalopram Allergy (Unknown, Verified 02/11/24 13:00) chest pain Diltiazem HCl Allergy (Unknown, Uncoded 02/11/24 13:00) Unknown Medication List - Last Reconciled 12/21/23 by Foster Avendano MD albuterol sulfate 5 mg inhalation Q4H PRN albuterol sulfate 90 mcg/actuation 2 puffs inhalation Q4-6H PRN amitriptyline 50 mg PO DAILY atorvastatin 20 mg PO BEDTIME bisacodyl (Dulcolax (bisacodyl)) 20 mg (4 x 5 mg) PO ONCE 1 day calcium carbonate 500 mg PO clonidine HCl 1 tab PO BEDTIME cyanocobalamin (vitamin B-12) 1 tab PO DAILY dapagliflozin propanediol (Farxiga) 1 tab PO DAILY dicyclomine 20 mg PO QID PRN dulaglutide (Trulicity) mg subcut QWEEK ergocalciferol (vitamin D2) 1 cap PO OWENS ferrous sulfate (FeroSul) 1 tab PO BID fluticasone furoate-vilanterol 200-25 mcg/dose (Breo Ellipta) 1 inh inhalation DAILY 30 days fluticasone propionate 50 mcg/actuation (Flonase Allergy Relief) 2 sprays intranasal DAILY gabapentin 0 mg PO hydroxyzine pamoate 1 cap PO BEDTIME insulin glargine 20 units (0.2 mL) subcut QPM lancets (TRUEplus Lancets) As directed levalbuterol tartrate 45 mcg/actuation (Xopenex HFA) 2 puffs PO Q6H lidocaine 5% (Lidoderm) 0 patches topical lisinopril 2.5 mg PO QAM metformin ER 500 mg PO methylcellulose (laxative) (Citrucel Sugar Free oral powder) 2 grams PO DAILY PRN metoclopramide HCl 5 mg PO QID metoprolol tartrate 1 tab PO BID omeprazole 40 mg (2 x 20 mg) PO DAILY 30 days peg-electrolyte soln 420 gram 240 mL PO ONCE 1 day pen needle, diabetic (Pen Needle) As directed polyethylene glycol 3350 (Miralax) 17 grams PO DAILY polyethylene glycol 3350 (Miralax) 238 grams PO ONCE PRN 1 day sertraline 100 mg PO DAILY sucralfate 1 g PO BID tramadol 50 mg PO DAILY umeclidinium 62.5 mcg/actuation (Incruse Ellipta) 1 inh inhalation DAILY 30 days HPI HPI Comments History of Present Illness Details 58-year-old Czech-speaking female is h ere for evaluation complaining right flank pain. Certified pulmonary specialist present. She thinks she may have a kidney stone. The patient a renal ultrasound in October. In review the results, no calculi hydronephrosis noted. I discussed further evaluation with CT kidney stone protocol. Urinalysis no signs of infection PFSH Medical History Gallbladder polyp Elevated AFP Pleural effusion Tobacco dependence Bronchopneumonia Diabetes THANH (acute kidney injury) Acute respiratory failure with hypoxia Pneumonia Asthma with acute exacerbation Asthma On beta mariaelena at home Hx of renal calculi Right knee injury Acute anxiety Depression GERD (gastroesophageal reflux disease) HTN (hypertension) Diabetic acidosis, type II Arthritis Surgical History History of hysterectomy Hx of arthroscopy of right knee Hx of cystoscopy Family History Father No problems noted. Mother No problems noted. Other No family history of coronary artery disease Social History Household Members: None Housing: Apartment Alcohol intake: current Alcohol intake frequency: holidays/special occasions only Patient Tobacco Use Status: Former Tobacco user Quit Date: 2022 Years Smoked: 20 +/- Second Hand Smoke Exposure: No service: No Current occupational status: disabled Current occupation: right hand dominant Review of Systems Const All systems reviewed & are unremarkable except as noted in HPI and below Reports no additional complaints Eyes Reports no additional complaints ENT Reports no additional complaints Card Denies dyspnea Resp Denies cough and Denies dyspnea GI Reports no additional complaints Reports no additional complaints Musc Reports no additional complaints Skin/Breast Denies rash and Denies unusual bruising Neuro Reports no additional complaints Psych Reports no additional complaints Endo Reports no additional complaints Rogelio/Lymph Reports no additional complaints Aller/Immun Reports no additional complaints Physical Exam Const General: cooperative, healthy appearing and no acute distress Orientation/consciousness: patient oriented x3 HEENT Head: Yes normal to inspection, Yes normocephalic and Yes atraumatic Eyes Conjunctivae: conjunctivae normal Neck Neck: Yes normal visual inspection and Yes trachea midline Chest Chest palpation & inspection: normal inspection of the chest Resp Effort & Inspection: normal respiratory effort Cardio Rate: regular rate GI Inspection: Yes normal to inspection Palpation (GI): Soft to palpation Skin General skin exam: no rashes or lesions noted Neuro General: patient oriented x3 Extrem General: No edema Psych Appearance: grossly normal Results AMB Urinalysis, Automated UA Leukoctes 0 Haim/uL Last Edit by BIJU Win on 12/21/23 09:14 UA Nitrite Negative Last Edit by BIJU Win on 12/21/23 09:14 UA Urobilinogen 0.2 mg/dL Last Edit by BIJU Win on 12/21/23 09:1 4 UA Protein 0 mg/dL Last Edit by BIJU Win on 12/21/23 09:14 UA pH 0 Last Edit by BIJU Win on 12/21/23 09:14 UA Blood 6.0 Surya/uL Last Edit by BIJU Win on 12/21/23 09:14 UA Specific [place] 1.010 Last Edit by BIJU Win on 12/21/23 09: 14 UA Ketone Negative Last Edit by BIJU Win on 12/21/23 09:14 UA Bilirubin 0 mg/dL Last Edit by BIJU Win on 12/21/23 09:14 UA Glucose 100 mg/dL Last Edit by BIJU Win on 12/21/23 09:14 Results Reviewed Results Reviewed: Laboratory Last Values Urine pH (Auto) 0 12/21/23 09:12 Specific [place] (Auto) 1.010 12/21/23 09:12 Urine Protein (Auto) 0 mg/dL 12/21/23 09:12 Glucose (UA)(Auto) 100 mg/dL 12/21/23 09:12 Urine Ketones (Auto) Negative 12/21/23 09:12 Urine Blood (Auto) 6.0 Surya/uL 12/21/23 09:12 Urine Nitrite (Auto) Negative 12/21/23 09:12 Urine Bilirubin (Auto) 0 mg/dL 12/21/23 09:12 Urine Urobilinogen (Auto) 0.2 mg/dL 12/21/23 09:12 Leukocyte Esterase (Auto) 0 Haim/uL 12/21/23 09:12 Date of Service: 11/16/23 EXAMINATION: US RETROPERITONEAL LIMITED (RENAL ONLY) CLINICAL INFORMATION: Right flank pain. History of kidney stone. COMPARISON: CT abdomen and pelvis 08/10/2022 and 09/03/2019. Ultrasound abdomen complete 08/07/2022. TECHNIQUE: Real-time imaging of the kidneys. FINDINGS: RIGHT KIDNEY: 11.0 x 3.7 x 4.4 cm (SAG x AP x TRV). The kidney is normal in size, contour, and echogenicity. Renal cortical thickness is normal. Cystic structure in right renal pelvis most likely a parapelvic cyst which needs no additional imaging or follow-up. Less likely isolated dilated lower pole calyx. No calculi or focal solid parenchymal lesions. No hydronephrosis. LEFT KIDNEY: 8.0 x 3.1 x 3.7 cm (SAG x AP x TRV). Kidney is small and atrophic with cortical thinning, similar to prior imaging. Renal cortical thickness is normal. No renal calculi or hydronephrosis. A benign 1.4 cm Bosniak class I renal cyst is noted which requires no additional imaging or follow up. No solid renal masses are seen. IMPRESSION: 1. A cause for the patient's right flank pain has not been found. 2. Small atrophic left kidney with cortical thinning similar to prior imaging. Assessment & Plan Assessment & Plan (1) Kidney stones: Code(s): N20.0 - Calculus of kidney (2) Flank pain: Code(s): R10.9 - Unspecified abdominal pain Plan CT kidney stone protocol Orders: Orders CT abdomen pelvis wo IV con 12/21/23 R10.9 - Unspecified abdominal pain, N20.0 - Calculus of kidney Patient Instructions: The patient had an opportunity to ask questions regarding treatment plan. All questions were answered. Imaging, Laboratory studies and physical exam results were discussed and reviewed in detail. No major barriers to understanding were identified. The patient expressed understanding and agreement with the above treatment plan. The patient is aware they should contact our office by phone for worsening of their current condition or the appearance of new symptoms. Compliance is encouraged with any medications and followup testing that is ordered. It is a privilege to be allowed the opportunity to participate in the urologic care of your patient. If you have any questions or concerns regarding treatment for the above conditions please do not hesitate to contact me. The office telephone contact is [phone]. This note is constructed in part using voice recognition software. While every effort has been made to ensure accuracy cost accounting clerk errors may have been included. Yours sincerely, Foster Avendano MD Coding Level of Care Code New Pt Level 3 (26754) Diagnoses Kidney stones N20.0 Flank pain R10.9
== END 2023-12-21 09:29 | disposition home or self-care (01) ==
PROVIDERS: PCP Family Medicine; Visit Provider Urology
DX: N20.0 Calculus of kidney (principal); R10.9 Unspecified abdominal pain
CPT/HCPCS: 99203

== ENCOUNTER → 2023-12-21 08:55 | Outpatient (BNVA) | payer MEDICAID, SELFPAY | PROVIDERS: PCP Family Medicine; Visit Provider Urology | DX: R10.9 Unspecified abdominal pain (principal); Z87.442 Personal history of urinary calculi | CPT/HCPCS: 81003; 99202 ==

== ENCOUNTER 2023-12-26 09:26 | Outpatient (REF) | payer MEDICAID, SELFPAY ==
--- NOTE | ~2023-12-26 | US_ITS ---
EXAMINATION: US ABDOMEN COMPLETE CLINICAL INFORMATION: Abnormality of alpha-fetoprotein. COMPARISON: Renal ultrasound 11/16/2023. CT abdomen and pelvis without contrast 08/10/2022. CT abdomen and pelvis 09/03/2019 TECHNIQUE: Real-time imaging of the abdominal viscera. FINDINGS: PANCREAS: Pancreatic echotexture is mildly heterogeneous, a nonspecific finding. ABDOMINAL AORTA: Visualized aorta is normal in caliber however portions are obscured by bowel gas. INFERIOR VENA CAVA: Visualized portions are normal. LIVER: The liver is normal in size. The liver contour is normal. Moderately increased hepatic echogenicity which can be seen in the setting of hepatic steatosis or underlying liver disease. No focal hepatic lesion. There is no intrahepatic biliary duct dilatation seen. GALLBLADDER: Gallbladder polyps measuring up to 5 mm. The gallbladder is physiologically distended without evidence of stones, sludge, wall thickening or pericholecystic fluid. COMMON BILE DUCT: Normal in caliber measuring 0.3 cm in diameter. RIGHT KIDNEY: Benign-appearing renal cyst measuring 0.7 cm. No follow up imaging is recommended. No hydronephrosis or renal calculi. The kidney measures 10.9 cm in maximum dimension. LEFT KIDNEY: Benign-appearing renal cyst measuring 1.4 cm. No follow up imaging is recommended. No hydronephrosis or renal calculi. The kidney measures 7.4 cm in maximum dimension which is asymmetrically atrophic with mildly increased parenchymal echogenicity suggesting chronic medical renal disease. SPLEEN: A 6 mm hyperechoic lesion in the spleen without internal vascularity possibly a tiny hemangioma. The spleen measures 10.1 cm in maximum dimension. FREE FLUID: None. ADDITIONAL FINDINGS: A 1.3 x 0.6 x 0.8 cm jace hepatic node with normal hilar architecture not enlarged or otherwise abnormal in morphology. US/US abdomen complete IMPRESSION: * A 6 mm hyperechoic lesion in the spleen without internal vascularity, possibly a tiny hemangioma. * The right kidney is asymmetrically atrophic with mildly increased parenchymal echogenicity suggesting chronic medical renal disease. * Gallbladder polyps measuring up to 5 mm. Recommend 6 month follow-up ultrasound and annual ultrasound to document 5 years stability. * Moderately increased hepatic echogenicity which can be seen in the setting of hepatic steatosis or underlying liver disease. * Pancreatic echotexture is mildly heterogeneous, nonspecific finding.
== END 2023-12-26 09:27 | disposition home or self-care (01) ==
LOC: HO.US 09:26
PROVIDERS: PCP Family Medicine; Visit Provider Physician Assistant
DX: R77.2 Abnormality of alphafetoprotein (principal)
CPT/HCPCS: 76700

== ENCOUNTER 2024-02-01 14:48 | Outpatient (REF) | payer MEDICAID, SELFPAY ==
--- NOTE | ~2024-02-01 | CT_ITS ---
EXAMINATION: CT ABDOMEN AND PELVIS WITHOUT CONTRAST CLINICAL INFORMATION: Abdominal pain with history of kidney stones. COMPARISON: Ultrasound abdomen 12/26/2023, CT abdomen and pelvis 08/10/2022. TECHNIQUE: Multidetector volumetric imaging was performed from the superior aspect of the liver through the pubic symphysis. Sagittal and coronal reformatted images were obtained on the technologist's workstation. This CT examination was performed using dose optimization techniques as appropriate, variously including the following: *Automated exposure control *Adjustment of mA and/or kV according to patient size (this includes techniques or standardized protocols for targeted exams where dose is matched to indication/reason for exam; i.e. extremities or head) *Use of iterative reconstruction technique DLP: 303 mGy-cm FINDINGS: LUNG BASES: The visualized lung bases are unremarkable. LIVER, GALLBLADDER, AND BILIARY TREE: The liver is enlarged measuring 20.7 cm in cephalocaudad dimension. At the time of the previous study the liver was also enlarged at 22 cm. Attenuation remains normal. No focal hepatic lesion or biliary ductal dilatation is present. The gallbladder is contracted but otherwise unremarkable with no evidence of radiopaque gallstones, gallbladder wall thickening, or obvious pericholecystic inflammatory changes. PANCREAS: Unremarkable. SPLEEN: Unremarkable. ADRENAL GLANDS: Unremarkable. KIDNEYS AND URETERS: The left kidney is mildly atrophic compared with the right. No hydronephrosis, hydroureter, or calculi seen. A benign left upper pole 1.3 cm Bosniak class I renal cyst is noted which requires no additional imaging or followup. No solid renal masses are seen. BLADDER: Unremarkable. GASTROINTESTINAL TRACT: The small and large bowel are unremarkable. The appendix is unremarkable. ABDOMINAL WALL: No significant hernia is appreciated. LYMPH NODES: No retroperitoneal lymphadenopathy. VASCULAR: Calcific atherosclerotic changes are present in the aorta and iliac vessels. There is no evidence of an abdominal aortic aneurysm. PELVIC VISCERA: Uterus is not seen. In the right iliac region against the pelvic sidewall there is a 2.0 x 1.2 x 1.9 cm soft tissue mass seen which most likely represents the left ovary (3:58 and 5:61) and is unchanged when compared to the 08/10/2022 study (3:66). OSSEOUS STRUCTURES: Mild degenerative changes are present in the spine. No bony destructive lesions. CT/CT abdomen pelvis wo IV con IMPRESSION: 1. A cause for the patient's abdominal pain has not been found. 2. Incidental note made of an enlarged liver and mildly atrophic left kidney. 3. Other incidental findings as described above. Fleischner guidelines were followed.
== END 2024-02-01 14:49 | disposition home or self-care (01) ==
LOC: HO.CT 14:48
PROVIDERS: PCP Family Medicine; Visit Provider Urology
DX: R10.9 Unspecified abdominal pain (principal); N20.0 Calculus of kidney
CPT/HCPCS: 74176

== ENCOUNTER 2024-02-11 12:56 | Outpatient (AMB) | payer MEDICAID, SELFPAY ==
--- NOTE | 2024-02-11 12:57 | A.OFFVIS_ITS ---
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 The patient continues to complain of right-sided back pain. I have discussed with her that the CT abdomen and pelvis does not show any stones in either kidney. Right-sided pain may be musculoskeletal related, I have discussed that she should follow-up with her PCP regarding these symptoms. Will have her follow-up with our office. 12/21/2023-- 58-year-old Guatemalan-speaking female is here for evaluation complaining right flank pain. Certified translator and interpreter present. She thinks she may have a kidney stone. The patient a renal ultrasound in October. In review the results, no calculi hydronephrosis noted. I discussed further evaluation with CT kidney stone protocol. Urinalysis no signs of infection. 02/11/2024--PLAN: Follow-up p.r.n. [facility] Medical History Gallbladder polyp Elevated AFP Pleural effusion Tobacco dependence Bronchopneumonia Diabetes THANH (acute kidney injury) Acute respiratory failure with hypoxia Pneumonia Asthma with acute exacerbation Asthma On beta mariaelena at home Hx of renal calculi Right knee injury Acute anxiety Depression GERD (gastroesophageal reflux disease) HTN (hypertension) Diabetic acidosis, type II Arthritis Surgical History History of hysterectomy Hx of arthroscopy of right knee Hx of cystoscopy Family History Father No problems noted. Mother No problems noted. Other No family history of coronary artery disease Social History Household Members: None Housing: Apartment Alcohol intake: current Alcohol intake frequency: holidays/special occasions only Patient Tobacco Use Status: Former Tobacco user Quit Date: 2022 Years Smoked: 20 +/- Second Hand Smoke Exposure: No service: No Current occupational status: disabled Current occupation: right hand dominant Review of Systems Const All systems reviewed & are unremarkable except as noted in HPI and below Reports no additional complaints Eyes Reports no additional complaints ENT Reports no additional complaints Card Denies dyspnea Resp Denies cough and Denies dyspnea GI Reports no additional complaints Reports no additional complaints Musc Reports no additional complaints Skin/Breast Reports system reviewed and no additional complaints, except as documented Neuro Reports no additional complaints Psych Reports no additional complaints Endo Reports no additional complaints Rogelio/Lymph Reports no additional complaints Aller/Immun Reports no additional complaints Results Reviewed Results Reviewed: Date of Service: 02/01/24 EXAMINATION: CT ABDOMEN AND PELVIS WITHOUT CONTRAST CLINICAL INFORMATION: Abdominal pain with history of kidney stones. COMPARISON: Ultrasound abdomen 12/26/2023, CT abdomen and pelvis 08/10/2022. TECHNIQUE: Multidetector volumetric imaging was performed from the superior aspect of the liver through the pubic symphysis. Sagittal and coronal reformatted images were obtained on the technologist's workstation. This CT examination was performed using dose optimization techniques as appropriate, variously including the following: *Automated exposure control *Adjustment of mA and/or kV according to patient size (this includes techniques or standardized protocols for targeted exams where dose is matched to indication/reason for exam; i.e. extremities or head) *Use of iterative reconstruction technique DLP: 303 mGy-cm FINDINGS: LUNG BASES: The visualized lung bases are unremarkable. LIVER, GALLBLADDER, AND BILIARY TREE: The liver is enlarged measuring 20.7 cm in cephalocaudad dimension. At the time of the previous study the liver was also enlarged at 22 cm. Attenuation remains normal. No focal hepatic lesion or biliary ductal dilatation is present. The gallbladder is contracted but otherwise unremarkable with no evidence of radiopaque gallstones, gallbladder wall thickening, or obvious pericholecystic inflammatory changes. PANCREAS: Unremarkable. SPLEEN: Unremarkable. ADRENAL GLANDS: Unremarkable. KIDNEYS AND URETERS: The left kidney is mildly atrophic compared with the right. No hydronephrosis, hydroureter, or calculi seen. A benign left upper pole 1.3 cm Bosniak class I renal cyst is noted which requires no additional imaging or followup. No solid renal masses are seen. BLADDER: Unremarkable. GASTROINTESTINAL TRACT: The small and large bowel are unremarkable. The appendix is unremarkable. ABDOMINAL WALL: No significant hernia is appreciated. LYMPH NODES: No retroperitoneal lymphadenopathy. VASCULAR: Calcific atherosclerotic changes are present in the aorta and iliac vessels. There is no evidence of an abdominal aortic aneurysm. PELVIC VISCERA: Uterus is not seen. In the right iliac region against the pelvic sidewall there is a 2.0 x 1.2 x 1.9 cm soft tissue mass seen which most likely represents the left ovary (3:58 and 5:61) and is unchanged when compared to the 08/10/2022 study (3:66). OSSEOUS STRUCTURES: Mild degenerative changes are present in the spine. No bony destructive lesions. IMPRESSION: 1. A cause for the patient's abdominal pain has not been found. 2. Incidental note made of an enlarged liver and mildly atrophic left kidney. 3. Other incidental findings as described above. Assessment & Plan Assessment & Plan (1) Flank pain: Comment: may be musculoskeletal Code(s): R10.9 - Unspecified abdominal pain Plan prn Follow up Patient Instructions: The patient had an opportunity to ask questions regarding treatment plan. All questions were answered. Imaging, was discussed and reviewed in detail. No major barriers to understanding were identified. The patient expressed understanding and agreement with the above treatment plan. The patient is aware they should contact our office by phone for worsening of their current condition or the appearance of new symptoms. Compliance is enco uraged with any medications and followup testing that is ordered. It is a privilege to be allowed the opportunity to participate in the urologic care of your patient. If you have any questions or concerns regarding treatment for the above conditions please do not hesitate to contact me. The office telephone contact is [phone]. This note is constructed in part using voice recognition software. While every effort has been made to ensure accuracy material carrier errors may have been included. Yours sincerely, Foster Avendano MD Telehealth Telehealth Location of provider rendering services: practice address Location of patient: address on file Patient Identification confirmed using: Name, : Yes Telehealth method: voice only Patient verbally consented to treatment: Yes Patient verbally consented to billing insurance company: Yes Patient informed of any privacy concerns related to visit: Yes Minutes spent on Phone/Video with Pt.: 15 Coding Level of Care Code Tele Est Pt Level 3 (45291) Diagnoses Flank pain R10.9
== END 2024-02-11 15:32 | disposition home or self-care (01) ==
LOC: HO.HUSH 12:56
PROVIDERS: PCP Family Medicine; Visit Provider Urology
DX: R10.9 Unspecified abdominal pain (principal)
CPT/HCPCS: 99213

== ENCOUNTER → 2024-02-11 12:56 | Outpatient (BNVA) | payer MEDICAID, SELFPAY | PROVIDERS: PCP Family Medicine; Visit Provider Urology ==

== ENCOUNTER 2024-03-06 14:06 | Outpatient (REF) | payer MEDICAID, SELFPAY ==
--- NOTE | ~2024-03-06 | MM_ITS ---
EXAMINATION: MM SCREENING DIGITAL BREAST TOMOSYNTHESIS, BILATERAL CLINICAL INFORMATION: Screening. Asymptomatic. COMPARISON: Mammography: This study is compared with prior exams dating back to 2015. TECHNIQUE: Digital breast tomosynthesis is performed in both the craniocaudal and mediolateral oblique views along with computer-aided detection (CAD). Synthesized 2D images are generated from the tomosynthesis. FINDINGS: There are scattered areas of fibroglandular density (ACR BI-RADS breast composition Category b). There are no significant masses, abnormal calcifications, or other abnormalities. MM/MM tomosynthesis screening BI IMPRESSION: No mammographic evidence of malignancy. ASSESSMENT: BI-RADS BI-RADS 1 - Negative RECOMMENDATION: Routine annual mammography screening. 1 year F/U This examination should not preclude the clinical evaluation of a suspicious palpable abnormality. This patient's information was entered into a reminder system with a target due date for their next mammogram.
== END 2024-03-06 14:07 | disposition home or self-care (01) ==
LOC: HO.MAMMO 14:06
PROVIDERS: PCP Family Medicine; Visit Provider Family Medicine
DX: Z12.31 Encounter for screening mammogram for malignant neoplasm of breast (principal)
CPT/HCPCS: 77063; 77067

== ENCOUNTER → 2024-03-06 14:07 | Outpatient (BNV) | payer MEDICAID, SELFPAY | PROVIDERS: PCP Family Medicine; Visit Provider Radiology Diagnostic Radiology | DX: Z12.31 Encounter for screening mammogram for malignant neoplasm of breast (principal) | CPT/HCPCS: 77063; 77067 ==

== ENCOUNTER 2024-03-24 14:52 | Outpatient (AMB) | payer MEDICAID, SELFPAY ==
[2024-03-24 14:54] VITALS: BP 122/78; PULSE 84; O2SAT 96; BMI 25.2
--- NOTE | 2024-03-24 14:54 | A.OFFVIS_ITS ---
Vital Signs 03/24/24 14:54 Height 5 ft 2 in Weight 138 lb BMI 25.2 BP 122/78 Blood Pressure Location Lt brachial Position Sitting Pulse 84 Pulse Source Doppler Pulse Oximetry (%) 96 Oxygen Delivery Method Room Air Intake Visit Reasons: Asthma Manager Case Management Required: Yes Manager Case Management Name: Rain FitzpatrickGailSirishaGailManisha Allergies aspirin [Aspirin] Allergy (Intermediate, Verified 03/24/24 15:00) EYES SWELLING Penicillins Allergy (Intermediate, Verified 03/24/24 15:00) RASH citalopram Allergy (Unknown, Verified 03/24/24 15:00) chest pain Diltiazem HCl Allergy (Unknown, Uncoded 02/11/24 13:00) Unknown HPI HPI Asthma: Details: 58-year-old lady, former approximately 10 pack-year smoker, quit 2020, now followed for moderate to severe persistent asthma and environmental allergies. Patient has completed her chest x-ray that demonstrated resolution of her prior parapneumonic effusion.? At the last office visit she was switched to Breo/Incruse with good control of her symptoms. She also uses albuterol MDI/nebs. Today patient has complain of worsening environmental allergies secondary to seasonal exacerbation. [facility] Medical History Gallbladder polyp Elevated AFP Pleural effusion Tobacco dependence Bronchopneumonia Diabetes THANH (acute kidney injury) Acute respiratory failure with hypoxia Pneumonia Asthma with acute exacerbation Asthma On beta mariaelena at home Hx of renal calculi Right knee injury Acute anxiety Depression GERD (gastroesophageal reflux disease) HTN (hypertension) Diabetic acidosis, type II Arthritis Surgical History History of hysterectomy Hx of arthroscopy of right knee Hx of cystoscopy Family History Father No problems noted. Mother No problems noted. Other No family history of coronary artery disease Social History Household Members: None Housing: Apartment Alcohol intake: current Alcohol intake frequency: holidays/special occasions only Patient Tobacco Use Status: Former Tobacco user Quit Date: 2022 Years Smoked: 20 +/- Second Hand Smoke Exposure: No service: No Current occupational status: disabled Current occupation: right hand dominant Review of Systems Const Denies daytime sleepiness, Denies excessive sweating, Denies fatigue, Denies fever(s), Denies lethargy, Denies malaise, Denies night sweats, Denies snoring and Denies weight loss Eyes Denies blurry vision and Denies itchy eyes ENT Denies nasal congestion, Denies post nasal drip, Denies sinus pain, Denies sinus pressure and Denies other ( Thrush) Card Denies chest pain, Denies pedal edema, Denies dyspnea, Denies orthopnea and Denies paroxysmal nocturnal dyspnea Resp Denies cough, Denies hemoptysis, Denies excessive phlegm production, Denies dyspnea, Denies snoring and Denies wheezing GI Denies abdominal pain and Denies heartburn Musc Denies myalgias, Denies arthralgias and Denies joint swelling Skin/Breast Denies rash Neuro Denies memory loss and Denies seizure-like activity Psych Denies abnormal sleep pattern, Denies anxiety and Denies memory loss Endo Denies excessive sweating, Denies fatigue and Denies heat intolerance Rogelio/Lymph Denies easy bruising Aller/Immun Denies itchy eyes, Reports seasonal rhinorrhea and Denies wheezing Physical Exam Vital Signs: Last Vital Signs Pulse 84 03/24/24 14:54 BP 122/78 03/24/24 14:54 Pulse Ox 96 03/24/24 14:54 Oxygen Delivery Method Room Air 03/24/24 14:54 BMI result Body Mass Index 25.2 Const General: no acute distress and alert Nutritional Appearance: not obese Orientation/consciousness: Other orientation findings ( oriented) HEENT Head: Yes atraumatic Eyes General: appearance normal, both eyes and all related structures Sclerae: sclerae normal EOM: EOMs intact bilaterally Neck Neck: Yes supple Lymphatic: no lymphadenopathy noted Resp Effort & Inspection: normal respiratory effort and no use of accessory muscles Auscultation: clear to auscultation bilaterally Cardio Rate: regular rate Rhythm: regular rhythm Heart sounds: no gallops, no murmurs and no rubs Skin General skin exam: other ( warm) Extrem General: No clubbing, No cyanosis and No edema Assessment & Plan Assessment & Plan (1) Asthma: Code(s): J45.909 - Unspecified asthma, uncomplicated Category: Medical Plan: Well controlled on current regimen of Breo, Incruse, albuterol MDI, and albuterol neb. Continue current regimen. (2) Environmental allergies: Code(s): Z91.09 - Other allergy status, other than to drugs and biological substances Category: Medical Plan: Now with seasonal exacerbation of underlying environmental allergies. Will start on Zyrtec. Medications: New cetirizine (Zyrtec) 10 mg PO DAILY 30 tabs 4RF Coding Level of Care Code Est Pt Level 4 (09517) Diagnoses Asthma J45.909 Environmental allergies Z91.09
== END 2024-03-24 15:09 | disposition home or self-care (01) ==
PROVIDERS: PCP Family Medicine; Referring Provider Family Medicine; Visit Provider Internal Medicine Pulmonary Disease
DX: J45.909 Unspecified asthma, uncomplicated (principal); Z91.09 Other allergy status, other than to drugs and biological substances
CPT/HCPCS: 99214

== ENCOUNTER → 2024-03-24 14:52 | Outpatient (BNVA) | payer MEDICAID, SELFPAY | PROVIDERS: PCP Family Medicine; Visit Provider Internal Medicine Pulmonary Disease | DX: J45.909 Unspecified asthma, uncomplicated (principal); Z91.09 Other allergy status, other than to drugs and biological substances; Z87.891 Personal history of nicotine dependence | CPT/HCPCS: 99212 ==

== ENCOUNTER 2024-09-24 11:14 | Outpatient (AMB) | payer MEDICAID, SELFPAY ==
[2024-09-24 11:28] VITALS: BP 102/62; PULSE 91; O2SAT 96; BMI 26.9
--- NOTE | 2024-09-24 11:28 | MHC.OFFVIS ---
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 She continues on Breo, Incruse, albuterol MDI, and albuterol nebs with good baseline control of his symptoms. Today she complains of mild bronchitic exacerbation. She continues to use Zyrtec for her environmental allergies with reasonable control. [facility] Medical History Gallbladder polyp Elevated AFP Pleural effusion Tobacco dependence Bronchopneumonia Diabetes THANH (acute kidney injury) Acute respiratory failure with hypoxia Pneumonia Asthma with acute exacerbation Asthma On beta mariaelena at home Hx of renal calculi Right knee injury Acute anxiety Depression GERD (gastroesophageal reflux disease) HTN (hypertension) Diabetic acidosis, type II Arthritis Surgical History History of hysterectomy Hx of arthroscopy of right knee Hx of cystoscopy Family History Father No problems noted. Mother No problems noted. Other No family history of coronary artery disease Social History Household Members: None Housing: Apartment Alcohol intake: current Alcohol intake frequency: holidays/special occasions only Patient Tobacco Use Status: Former Tobacco user Years Smoked: 20 +/- Second Hand Smoke Exposure: No service: No Current occupational status: disabled Current occupation: right hand dominant Review of Systems Const Denies daytime sleepiness, Denies excessive sweating, Denies fatigue, Denies fever(s), Denies lethargy, Denies malaise, Denies night sweats, Denies snoring and Denies weight loss Eyes Denies blurry vision and Denies itchy eyes ENT Denies nasal congestion, Denies post nasal drip, Denies sinus pain, Denies sinus pressure and Denies other ( Thrush) Card Denies chest pain, Denies pedal edema, Denies dyspnea, Denies orthopnea and Denies paroxysmal nocturnal dyspnea Resp Denies cough, Denies hemoptysis, Denies excessive phlegm production, Denies dyspnea, Denies snoring and Denies wheezing GI Denies abdominal pain and Denies heartburn Musc Denies myalgias, Denies arthralgias and Denies joint swelling Skin/Breast Denies rash Neuro Denies memory loss and Denies seizure-like activity Psych Denies abnormal sleep pattern, Denies anxiety and Denies memory loss Endo Denies excessive sweating, Denies fatigue and Denies heat intolerance Rogelio/Lymph Denies easy bruising Aller/Immun Denies itchy eyes, Denies seasonal rhinorrhea and Denies wheezing Physical Exam Vital Signs: Last Vital Signs Pulse 91 09/24/24 11:28 BP 102/62 09/24/24 11:28 Pulse Ox 96 09/24/24 11:28 Oxygen Delivery Method Room Air 09/24/24 11:28 BMI result Body Mass Index 26.9 Const General: no acute distress and alert Nutritional Appearance: not obese Orientation/consciousness: Other orientation findings ( oriented) HEENT Head: Yes atraumatic Eyes General: appearance normal, both eyes and all related structures Sclerae: sclerae normal EOM: EOMs intact bilaterally Neck Neck: Yes supple Lymphatic: no lymphadenopathy noted Resp Effort & Inspection: normal respiratory effort and no use of accessory muscles Auscultation: clear to auscultation bilaterally Cardio Rate: regular rate Rhythm: regular rhythm Heart sounds: no gallops, no murmurs and no rubs Skin General skin exam: other ( warm) Extrem General: No clubbing, No cyanosis and No edema Assessment & Plan Assessment & Plan (1) Environmental allergies: Code(s): Z91.09 - Other allergy status, other than to drugs and biological substances Category: Medical Plan: Well controlled on Zyrtec and Flonase. Continue current regimen. (2) Asthma: Code(s): J45.909 - Unspecified asthma, uncomplicated Category: Medical Plan: Baseline well controlled on Breo, Incruse, and albuterol MDI/nebs. Continue current regimen. Will treat bronchitic exacerbation with a course of prednisone and azithromycin. Medications: New prednisone 40 mg (2 x 20 mg) PO DAILY 10 tabs 0RF azithromycin For 250 mg dose pack: take 500 mg today (day 1), then 250 mg for 4 days (days 2-5) PO 6 tabs 0RF Coding Level of Care Code Est Pt Level 4 (17955) Complex EM visit Add On G2211 Diagnoses Environmental allergies Z91.09 Asthma J45.909
== END 2024-09-24 11:47 | disposition home or self-care (01) ==
LOC: HO.HPS 11:15
PROVIDERS: PCP Family Medicine; Visit Provider Internal Medicine Pulmonary Disease
DX: Z91.09 Other allergy status, other than to drugs and biological substances (principal); J45.909 Unspecified asthma, uncomplicated
CPT/HCPCS: 99214

== ENCOUNTER → 2024-09-24 11:14 | Outpatient (BNVA) | payer MEDICAID, SELFPAY | PROVIDERS: PCP Family Medicine; Visit Provider Internal Medicine Pulmonary Disease | DX: J45.909 Unspecified asthma, uncomplicated (principal); Z91.09 Other allergy status, other than to drugs and biological substances; Z87.891 Personal history of nicotine dependence | CPT/HCPCS: 99212 ==

== ENCOUNTER 2024-10-17 08:19 | Outpatient (REF) | payer MEDICAID, SELFPAY ==
--- NOTE | ~2024-10-17 | US_ITS ---
EXAMINATION: US ABDOMEN COMPLETE CLINICAL INFORMATION: Abnormal levels of other serum enzymes. COMPARISON: CT abdomen and pelvis 02/01/2024. Ultrasound abdomen 12/26/2023. Renal ultrasound 11/16/2023. TECHNIQUE: Real-time imaging of the abdominal viscera. FINDINGS: PANCREAS: Prominent, enlarged peripancreatic lymph nodes measuring up to 1.6 cm and 1.3 cm. The visualized portion of the pancreas head and body are normal, portion of the pancreatic body and tail, not visualized are obscured by bowel gas. ABDOMINAL AORTA: The proximal, mid, and distal segments are normal in caliber. INFERIOR VENA CAVA: Visualized portions are normal. LIVER: Enlarged measuring up to 20 cm right lobe. The liver contour is normal. Increased echogenicity of the liver parenchyma, this can be seen in the setting of hepatic steatosis or liver parenchymal disease. Hypoechoic area in the liver adjacent to the gallbladder, the location is common for focal fat sparing. There is no intrahepatic biliary duct dilatation seen. GALLBLADDER: There are multiple gallstones, there are multiple echogenic structure adherent to the gallbladder wall probably polyps measuring up to 5 mm. The gallbladder is physiologically distended without evidence of pericholecystic fluid. COMMON BILE DUCT: Normal in caliber measuring 0.3 cm in diameter. RIGHT KIDNEY: Mild fullness of renal pelvis without caprice hydronephrosis. No hydronephrosis. No renal calculi or focal parenchymal lesions. The kidney measures 10.4 cm in maximum dimension. LEFT KIDNEY: Simple cyst upper pole 1 x 1 x 0.9 cm. No hydronephrosis or renal calculi. The kidney measures 11.8 cm in maximum dimension. SPLEEN: Echogenic structure in the spleen could be a hemangioma measure up to 4 x 5 x 6 mm The spleen measures 10.3 cm in maximum dimension. FREE FLUID: None. US/US abdomen complete IMPRESSION: 1. Hepatomegaly. Increased echogenicity of the liver parenchyma, this can be seen in the setting of hepatic steatosis or liver parenchymal disease. 2. Hypoechoic area in the liver adjacent to the gallbladder, the location is common for focal fat sparing. 3. Cholelithiasis without ultrasound evidence of acute cholecystitis. Multiple echogenic structures adherent to the gallbladder wall probably small polyps measuring 5 mm each. Attention to follow-up ultrasound in 6 months recommended. 4. There are 2 enlarged peripancreatic lymph nodes. Consider correlation with follow-up cross-sectional imaging CT scan or MRI, if not performed short-term follow-up ultrasound in 3 months advised.. 5. Fullness of right renal pelvis without caprice hydronephrosis. 6. Echogenic structure in the spleen 6 mm probably hemangioma. (Referring physician staff is being called, by physician staff assistance, to be alerted of the above critical findings and recommendations.) [employer] communication system 11/16/2024 11:10 AM RETAIL CUSTODIAL ASSOCIATE Electronically signed by: Wilson Blanca MD 11/16/2024 12:10 PM CHELE TIDWELL
== END 2024-10-17 08:20 | disposition home or self-care (01) ==
LOC: HO.US 08:19
PROVIDERS: PCP Family Medicine; Visit Provider Physician Assistant
DX: R74.8 Abnormal levels of other serum enzymes (principal); K82.4 Cholesterolosis of gallbladder
CPT/HCPCS: 76700

== ENCOUNTER 2024-12-23 14:49 | Outpatient (REF) | payer MEDICAID, SELFPAY ==
--- OUTSIDE RECORDS SUMMARY | 2024-12-23 15:47 | XMS_ITS | Encounter Summary ---
Author Organization [employer] Address [address] [facility] [address] 7[address] [place] [address] Care Team Providers Care Rv Servicer Name Role Phone Elsa Espitia MD Primary Care Provider [phone] Reason for Visit * Reason Comments Med Refill Encounter Details Date Type Department Care Team ([facility] st Contact Info) Description 12/08/2024 Refill [facility] [address] [place], [place] [phone] Elsa Espitia MD 230 [place], [place] [phone] Type 2 diabetes mellitus with other specified complication, with long-term current use of insulin ([facility]) Social History Tobacco Use Types Packs/Day Years Used Date Smoking Tobacco: Former Cigarettes Passive Smoke Exposure: Past Smokeless Tobacco: Never Alcohol Answer Date Recorded Frequency of Alcohol Consumption Not on file 09/18/2024 Average Number of Drinks Not on file 024 Frequency of Binge Drinking Not on file 08/27 Score 0 09/18/2024 Depression Answer Date Recorded Patient Health Questionnaire-9 Score 0 09/18/2024 Patient Health Questionnaire-9 Score 0 09/18/2024 Last PHQ-9: Questionnaire Data Not on file 1 Housing Stability Answer Date Recorded What is your housing situation today? I have amy panda 09/26/[address] you li ve. Do you have problems with any of the following? None of the above 09/26/2023 Food Insecurity Answer Date Recorded Within the past 12 months, y ou worried that your food would run out before you got money to buy more: Never True 09/18/2024 Within the past 12 months,th e food you bought just didn't last and you didn't have enough money to get more: Never True Transportation Answer Date Recorded In the past 12 months, has l ack of transportation kept you from medical appts, meetings, work or from getting things needed for daily living? No 09/18/2024 Utilities Answer Date Recorded In the past 12 months, has t he electric, gas, oil or water company threatened to shut off services in your home? No 09/26/2023 Depression Answer Date Recorded Patient Health Questionnaire-2 Score 0 09/18/2024 Internet Access Answer Date Recorded Internet Access Q1 Yes 07/28/2024 Internet Access Q2 Not on file 07/28/2024 Comments Unknown Sex and Gender Information Value Date Recorded Sex Assigned at Female 09/25/2022 10:18 AM EDT Legal Sex Female 10:18 AM EDT Gender Identity Female 09/25/2022 10:18 AM EDT Sexual Orientation Straight 09/25/2022 10 :18 AM EDT documented as of this encounter Plan of Treatment Not on file documented as of this encounter Visit Diagnoses Diagnosis Type 2 diabetes mellitus with other specified complication, with long-term current use of insulin ([facility]) documented in this encounter Additional Health Concerns Assessment Noted Time PHQ-9 Depression Total Score: 0 09/18/20 10:38 AM EDT documented as of this encounter Care Teams Rv Servicer Relationship Specialty Start Date End Date Elsa Espitia MD [address] [place] [address] PCP - General Family Medicine 04/04/19 Kath White Solar Hot Water InstallerProfessional Driver 03/06/24 documented as of this encounter
--- OUTSIDE RECORDS SUMMARY | 2024-12-23 15:47 | XMS_ITS | Clinical Summary ---
Author Organization [facility] Facility Address [address] [address] Care Team Providers Care Helicopter Dispatcher Name Role Phone Elsa Espitia MD Primary Care Provider [phone] Social History Tobacco Use Types Packs/Day Years Used Date Smoking Tobacco: Never Assessed Comments Unknown Sex and Gender Information Value Date Recorded Sex Assigned at Not on file Legal Sex Female 9:18 AM EDT Gender Identity Not on file Sexual Orientation Not on file Plan of Treatment Health Maintenance Due Date Last Done Comments Breast Cancer Screening 1966 Hepatitis B Vaccine (1 of 3 - 19+ 3-dose series) 1985 Colorectal Cancer Screening: Annual FOBT 2015 Colorectal Cancer Screening: Colonoscopy 2015 Colorectal Cancer Screening: Sigmoidoscopy 2015 Influenza Vaccine (#1) 2024 Pneumococcal Vaccine: Pediat rics (0 to 5 Years) and At-Risk Patients (6 to 64 Years) Aged Out No longer eligible b ased on patient's age to complete this topic Insurance [place] Care Teams Helicopter Dispatcher Relationship Specialty Start Date End Date Elsa Espitia MD PCP - General Family Medicine 03/20/22
--- OUTSIDE RECORDS SUMMARY | 2024-12-23 15:47 | XMS_ITS | Encounter Summary ---
Author Organization [employer] Address [address] [address] [place] [address] Care Team Providers Care Plywood Layup Line Back Feeder Name Role Phone Elsa Espitia MD Primary Care Provider [phone] Reason for Visit * Reason Comments Med Refill Encounter Details Date Type Department Care Team ([facility] st Contact Info) Description 12/10/2024 Refill [facility] MED[facility]INE 230 [place], [place] [phone] Elsa Espitia MD [address] [place], [place] [phone] Social History Tobacco Use Types Packs/Day Years [...] documented as of this encounter Visit Diagnoses Not on filedocumented in this encounter Additional Health Concerns Assessment Noted Time PHQ-9 Depression Total Score: 0 09/18/20 10:38 AM EDT documented as of this encounter Care Teams Plywood Layup Line Back Feeder Relationship Specialty Start Date End Date Elsa Espitia MD [address] [place] [address] PCP - General Family Medicine 04/04/19 Kath White Internet ArchitectChart Snatcher 03/06/24 documented as of this encounter
--- OUTSIDE RECORDS SUMMARY | 2024-12-23 15:47 | XMS_ITS | Encounter Summary ---
Author Organization [employer] Address [address] 7[address] [place] [address] Care Team Providers Care Ash Conveyor Operator Name Role Phone Elsa Espitia MD Primary Care Provider [phone] Reason for Visit * Reason Comments Med Refill Encounter Details Date Type Department Care Team ([facility] st Contact Info) Description 12/14/2024 Refill [facility] MEDICINE 230 [place], [place] [phone] Elsa Espitia MD [address] [place], [place] [phone] Type 2 diabetes mellitus with other specified complication, with long-term current use of insulin ([facility]) Social History Tobacco Use Types Packs/Day Years [...] complication, with long-term current use of insulin ([facility]) documented in this encounter Additional Health Concerns Assessment Noted Time PHQ-9 Depression Total Score: 0 09/18/20 10:38 AM EDT documented as of this encounter Care Teams Ash Conveyor Operator Relationship Specialty Start Date End Date Elsa Espitia MD [address] [place] [address] PCP - General Family Medicine 04/04/19 Kath White Sandwich Board CarrierPoiser Balance 03/06/24 documented as of this encounter
--- OUTSIDE RECORDS SUMMARY | 2024-12-23 15:47 | XMS_ITS | Encounter Summary ---
Author Organization [employer] Address [address] [facility] [address] [facility] [address] [place] [address] Care Team Providers Care Drug Discovery Informatics Specialist Name Role Phone Elsa Espitia MD Primary Care Provider [phone] Reason for Visit * Reason Onset Date Comments Med Refill 07/22/2024 Encounter Details Date Type Department Care Team ([facility] st Contact Info) Description 07/22/2024 Telephone [facility] MEDICINE 230 [place], [place] [phone] Elsa Espitia MD 230 [place], [place] [phone] Med Refill Social History Tobacco Use Types Packs/Day Years Used Date Smoking Tobacco: Former Cigarettes Passive Smoke Exposure: Past Smokeless Tobacco: Never Depression Answer Date Recorded Patient Health Questionnaire-9 Score 0 06/01/2023 Housing Stability Answer Date Recorded What is your housing situation today? I have amy panda 09/26/[address] you li ve. Do you have problems with any of the following? None of the above 09/26/2023 Food Insecurity Answer Date Recorded Within the past 12 months, y ou worried that your food would run out before you got money to buy more: Sometimes True 2023 Within the past 12 months,th e food you bought just didn't last and you didn't have enough money to get more: Sometimes True 03/06/2024 Transportation Answer Date Recorded In the past 12 months, has l ack of transportation kept you from medical appts, meetings, work or from getting things needed for daily living? Yes, it has kept me from medical appointments or getting medications. 03/06/2024 Utilities Answer Date Recorded In the past 12 months, has t he electric, gas, oil or water company threatened to shut off services in your home? No 09/26/2023 Depression Answer Date Recorded Patient Health Questionnaire-2 Score 0 06/01/2023 Comments Unknown Sex and Gender Information Value Date Recorded Sex Assigned at Female 09/25/2022 10:18 AM EDT Legal Sex Female 10:18 AM EDT Gender Identity Female 09/25/2022 10:18 AM EDT Sexual Orientation Straight 09/25/2022 10 :18 AM EDT documented as of this encounter Miscellaneous Notes * Telephone Encounter - Angel Sabino - 07/22/2024 1:43 PM EDT TC from pt requesting medication refill. Medications needing refill: traMADol (Ultram) 50 MG tablet To be sent to: [facility] documented in this encounter Plan of Treatment Not on file documented as of this encounter Visit Diagnoses Not on filedocumented in this encounter Additional Health Concerns Assessment Noted Time PHQ-9 Depression Total Score: 0 06/01/20 23 10:46 AM EDT documented as of this encounter Care Teams Drug Discovery Informatics Specialist Relationship Specialty Start Date End Date Elsa Espitia MD 230 [place] [address] PCP - General Family Medicine 04/04/19 Kath White Furnace MaintenanceCollar Tacker 03/06/24 documented as of this encounter
--- OUTSIDE RECORDS SUMMARY | 2024-12-23 15:47 | XMS_ITS | Encounter Summary ---
Author Organization [employer] Address [address] [facility] [address] [place] [address] Care Team Providers Care Ekg/Ecg Technician Name Role Phone Elsa Espitia MD Primary Care Provider [phone] Encounter Details Date Type Department Care Team (Late st Contact Info) Description 12/23/2024 3:15 PM EST Office Visit [facility] MED[facility]INE 230 [place], [place] [phone] Elsa Espitia MD 230 [place], [place] [phone] Asthma with COPD (CMS/HCC) (Primary Dx); Nocturnal hypoxemia; Essential hypertension; Type 2 diabetes mellitus with stage 3b chronic kidney disease, with long-term current use of insulin (CMS/HCC); Type 2 diabetes mellitus with stage 3 chronic kidney disease, with long-term current use of insulin, unspecified whether stage 3a or 3b CKD (CMS/HCC); Chronic low back pain, unspecified back pain laterality, unspecified whether sciatica present Social History Tobacco Use Types Packs/Day Years [...] AM EDT documented as of this encounter Last Filed Vital Signs Vital Sign Reading Time Taken Comments Blood Pressure 112/74 12/23/2024 3:16 PM EST Pulse 84 12/23/2024 3:16 PM EST Temperature 36.3 ??C (97.3 ??F) 12/23/2024 3:16 PM ES T Respiratory Rate 17 12/23/2024 3:16 PM EST Oxygen Saturation 98% 12/23/2024 3:16 PM EST Inhaled Oxygen Concentration - - Weight 64.2 kg (141 lb 9.6 oz) 12/23/2024 3:16 P M EST Height 154.4 cm (5' 0.8 ) 12/23/2024 3:16 PM EST Body Mass Index 26.94 12/23/2024 3:16 PM EST documented in this encounter Plan of Treatment Not on file documented as of this encounter Procedures Procedure Name Priority Date/Time Associated Diagnosis Comments POCT GLYCOSYLATED HEMOGLOBIN (HGB A1C) Routine 12/23/2024 3:19 PM EST Type 2 diabetes mellitus with stage 3b chronic kidney disease, with long-term current use of insulin ([facility]) POCT GLUCOSE Routine 12/23/2024 3:17 PM EST Type 2 diabetes mellitus with stage 3b chronic kidney disease, with long-term current use of insulin ([facility]) documented in this encounter Results * (ABNORMAL) POCT glycosylated hemoglobin (Hgb A1c) (12/23/2024 3:19 PM EST) Hemoglobin A1C 7.0(A) 4.0 - 6.0 % QC Media Lot # [id number] Lot# Expiration Date Blood Capillary blood specimen / Unknown 12/23/2024 3:19 PM EST Elsa Espitia MD POINT OF CARE TEST ENTER/EDIT OR DERABLES Final Result * POCT glucose manually resulted (12/23/2024 3:17 PM EST) Glucose Blood, POC 104 60 - 200 mg/dL QC Media Lot # [id number] Lot# Expiration Date Blood Capillary blood specimen / Unknown 12/23/2024 3:17 PM EST Elsa Espitia MD POINT OF CARE TEST ENTER/EDIT OR DERABLES Final Result documented in this encounter Visit Diagnoses Diagnosis Asthma with COPD ([facility])- Primary Nocturnal hypoxemia Essential hypertension Unspecified essential hypertension Type 2 diabetes mellitus with stage 3 chronic kidney disease, with long-term current use of insulin, unspecified whether stage 3a or 3b CKD ([facility]) Chronic low back pain, unspecified back pain laterality, unspecified whether sciatica present documented in this encounter Additional Health Concerns Assessment Noted Time PHQ-9 Depression Total Score: 0 09/18/ 24 10:38 AM EDT documented as of this encounter Care Teams Ekg/Ecg Technician Relationship Specialty Start Date End Date Elsa Espitia MD [address] [place] [id number] PCP - General Family Medicine 04/04/19 Kath White Propeller Layout WorkerMeat Department Manager 03/06/24 documented as of this encounter
--- OUTSIDE RECORDS SUMMARY | 2024-12-23 15:47 | XMS_ITS | Encounter Summary ---
Author Organization [employer] Address [address] [facility] [place] [address] Care Team Providers Care Crimping Machine Operator Name Role Phone Elsa Espitia MD Primary Care Provider [phone] Reason for Visit * Reason Comments Med Refill Encounter Details Date Type Department Care Team ([facility] st Contact Info) Description 12/10/2024 Refill [facility] MEDICINE 230 [place], [place] [phone] Natalie Flores MD 230 [place], [place] [phone] Gastroesophageal reflux disease, unspecified whether esophagitis present Social History Tobacco Use Types Packs/Day [...] as of this encounter Visit Diagnoses Diagnosis Gastroesophageal reflux disease, unspecified whether esophagitis present documented in this encounter Additional Health Concerns Assessment Noted Time PHQ-9 Depression Total Score: 0 09/18/20 10:38 AM EDT documented as of this encounter Care Teams Crimping Machine Operator Relationship Specialty Start Date End Date Elsa Espitia MD 230 [place] [address] PCP - General Family Medicine 04/04/19 Kath White Shelf Drier OperatorTheatre Professor 03/06/24 documented as of this encounter
--- OUTSIDE RECORDS SUMMARY | 2024-12-23 15:47 | XMS_ITS | Encounter Summary ---
Author Organization [employer] Address [address] [facility] [address] [facility] [address] 7[address] [place] [address] Care Team Providers Care Rotor Winder Name Role Phone Elsa Espitia MD Primary Care Provider [phone] Reason for Visit * Reason Onset Date Comments Medication Question 07/22/2024 Encounter Details Date Type Department Care Team ([facility] Contact Info) Description 07/22/2024 Telephone [facility] MEDICINE 230 [place], [place] [phone] Elsa Espitia MD 230 [place], [place] [phone] Medication Question Social History Tobacco Use Types Packs/Day Years Used Date Smoking Tobacco: Former Cigarettes Passive Smoke Exposure: Past Smokeless Tobacco: Never Depression Answer Date Recorded Patient Health Questionnaire-9 Score 0 06/01/2023 Housing Stability Answer Date Recorded What is your housing situation today? I have amyzoie panda 09/26/[address] you [...] encounter Miscellaneous Notes * Telephone Encounter - Dee Lawrence RN - 07/23/2024 10:50 AM EDT TC placed to pt with a Lake spinneret cleaner to inquire which prescription pt needs a refill on. Per pt, the insulin pen needle (Pentips) 32G X 4 mm is needed. Medication queued to PCP for review * Telephone Encounter - Angel Gallo - 07/22/2024 1:44 PM EDT Tc from pt requesting needles for checking blood sugar. If any questions you can contact pt at [phone]. (Malay Speaker) documented in this encounter Plan of Treatment Not on file documented as of this encounter Visit Diagnoses Not on filedocumented in this encounter Additional Health Concerns Assessment Noted Time PHQ-9 Depression Total Score: 0 06/01/20 23 10:46 AM EDT documented as of this encounter Care Teams Rotor Winder Relationship Specialty Start Date End Date Elsa Espitia MD 230 [place] [address] PCP - General Family Medicine 04/04/19 Kath White Levers Lace Machine OperatorStatement Services Representative 03/06/24 documented as of this encounter
--- OUTSIDE RECORDS SUMMARY | 2024-12-23 15:47 | XMS_ITS | Encounter Summary ---
Author Organization [employer] Address [address] [facility] [address] [place] [address] Care Team Providers Care Polisher And Buffer Name Role Phone Elsa Espitia MD Primary Care Provider [phone] Encounter Details Date Type Department Care Team (Latest Contact Info) Description 12/23/2024 Travel Social History Tobacco Use Types Packs/Day Years [...] documented as of this encounter Care Teams Polisher And Buffer Relationship Specialty Start Date End Date Elsa Espitia MD [address] [place] [address] PCP - General Family Medicine 04/04/19 Kath White Maintenance And Engineering ManagerReal Estate Processor 03/06/24 documented as of this encounter
--- OUTSIDE RECORDS SUMMARY | 2024-12-23 15:47 | XMS_ITS | Encounter Summary ---
Author Organization [employer] Address [address] [facility] [address] 7[address] [place] [address] Care Team Providers Care Recreation Therapy Teacher Name Role Phone Elsa Espitia MD Primary Care Provider [phone] Encounter Details Date Type Department Care Team ([facility] st Contact Info) Description 07/22/2024 Orders Only [facility] MEDICINE 230 [place], [place] [phone] Elsa Espitia MD [address] [place], [place] [phone] Social History Tobacco Use Types Packs/Day Years [...] documented as of this encounter Care Teams Recreation Therapy Teacher Relationship Specialty Start Date End Date Elsa Espitia MD [address] [place] [address] PCP - General Family Medicine 04/04/19 Kath White Extension ProfessorMixing Plant Dumper 03/06/24 documented as of this encounter
--- OUTSIDE RECORDS SUMMARY | 2024-12-23 15:47 | XMS_ITS | Encounter Summary ---
Author Organization [employer] Address [address] [facility] [address] 7t [place] [address] Care Team Providers Care Building Code Administrator Name Role Phone Elsa Espitia MD Primary Care Provider [phone] Reason for Visit * Reason Comments Med Refill Encounter Details Date Type Department Care Team ([facility] st Contact Info) Description 09/27/2023 Refill [facility] MEDICINE 230 [place], [place] [phone] Curt Carnes MD [address] [place], [place] [phone] Gastroesophageal reflux disease, unspecified whether esophagitis present [...] got money to buy more: Never True 09/26/2023 Within the past 12 months,th e food you bought just didn't last and you didn't have enough money to get more: Never True 11/2022 Transportation Answer Date Recorded In the past 12 months, has l ack of transportation kept you from medical appts, meetings, work or from getting things needed for daily living? No 09/26/2023 Utilities Answer Date Recorded In the past 12 months, has t he electric, gas, oil or water [email or web address] threatened to shut off services in your [...] documented as of this encounter Care Teams Building Code Administrator Relationship Specialty Start Date End Date Elsa Espitia MD 230 [place] [address] PCP - General Family Medicine 04/04/19 Kath White Cloth WasherData Collection Associate 03/06/24 documented as of this encounter
--- OUTSIDE RECORDS SUMMARY | 2024-12-23 15:47 | XMS_ITS | Encounter Summary ---
Author Organization [employer] [facility] Address [address] [facility] [address] [address] 7[address] [place] [address] Care Team Providers Care Supervisor Accounts Receivable Name Role Phone Elsa Espitia MD Primary Care Provider [phone] Reason for Visit * Reason Onset Date Comments Referral 06/15/2023 Encounter Details Date Type Department Care Team ([facility] st Contact Info) Description 06/15/2023 Telephone [facility] MEDICINE 230 [place], [place] [phone] Elsa Espitia MD 230 [place], [place] [phone] Referral Social History Tobacco Use Types Packs/Day Years Used Date Smoking Tobacco: Former Cigarettes Depression Answer Date Recorded Patient Health Questionnaire-9 Score 0 06/01/2023 Depression Answer Date Recorded Patient Health Questionnaire-2 Score 0 06/01/2023 Comments Unknown Sex and Gender Information Value Date Recorded Sex Assigned at Female 09/25/2022 10:18 AM EDT Legal Sex Female 10:18 AM EDT Gender Identity Female 09/25/2022 10:18 AM EDT Sexual Orientation Straight 09/25/2022 10 :18 AM EDT COVID-19 Exposure Response Date Recorded In the last 10 days, have yo u been in contact with someone who was confirmed or suspected to have Coronavirus/COVID-19? No / Unsure 06/01/2023 10:28 AM EDT documented as of this encounter Miscellaneous Notes * Telephone Encounter - Shala Madi - 06/15/2023 2:59 PM EDT Tc from liyah requesting for PCP to speak with pt about a referral to a kidney specialist next appointment in case pt forgets. documented in this encounter Plan of Treatment Not on file documented as of this encounter Visit Diagnoses Not on filedocumented in this encounter Additional Health Concerns Assessment Noted Time PHQ-9 Depression Total Score: 0 06/01/20 23 10:46 AM EDT documented as of this encounter Care Teams Supervisor Accounts Receivable Relationship Specialty Start Date End Date Elsa Espitia MD 230 [place] [address] PCP - General Family Medicine 04/04/19 Kath White Auto Wheel Alignment SpecialistHigh School Foreign Language Tutor 03/06/24 documented as of this encounter
--- OUTSIDE RECORDS SUMMARY | 2024-12-23 15:47 | XMS_ITS | Encounter Summary ---
Author Organization [employer] Address [address] [facility] [address] [place] [address] Care Team Providers Care Small Lot Operator Name Role Phone Elsa Espitia MD Primary Care Provider [phone] Reason for Visit * Reason Comments Med Refill Encounter Details Date Type Department Care Team ([facility] st Contact Info) Description 12/18/2024 Refill [facility] MEDICINE 230 [place], [place] [phone] Emmanuelle Miranda, ANP 230 [place] [address] Chronic low back pain, unspecified back pain [...] encounter Miscellaneous Notes * Telephone Encounter - Katie Romero RN - 12/18/2024 4:09 PM EST CLIENT SERVICES DIRECTOR checked. Pt last picked up 10 day supply of Tramadol 10/31/24. Scheduled to see PCP 12/23/24. Refill appropriate. Queued. documented in this encounter Plan of Treatment Not on file documented as of this encounter Visit Diagnoses Diagnosis Chronic low back pain, unspecified back pain laterality, unspecified whether sciatica present documented in this encounter Additional Health Concerns Assessment Noted Time PHQ-9 Depression Total Score: 0 09/18/20 10:38 AM EDT documented as of this encounter Care Teams Small Lot Operator Relationship Specialty Start Date End Date Elsa Espitia MD 230 [place] [address] PCP - General Family Medicine 04/04/19 Kath White Advanced DeveloperNutrition Services Associate 03/06/24 documented as of this encounter
--- OUTSIDE RECORDS SUMMARY | 2024-12-23 15:47 | XMS_ITS | Encounter Summary ---
Author Organization [employer] Address [address] [place] [address] Care Team Providers Care Anesthesia Attending Name Role Phone Elsa Espitia MD Primary Care Provider [phone] Reason for Visit * Reason Comments Med Refill Encounter Details Date Type Department Care Team ([facility] st Contact Info) Description 11/29/2024 Refill [facility] [address] [place], [place] [phone] Elsa Espitia MD [address] [place], [place] [phone] Social History Tobacco Use Types Packs/Day Years [...] documented as of this encounter Care Teams Anesthesia Attending Relationship Specialty Start Date End Date Elas Espitia MD [address] [place] [id number] PCP - General Family Medicine 04/04/19 Kath White [facility] [employer] 03/06/24 documented as of this encounter
--- OUTSIDE RECORDS SUMMARY | 2024-12-23 15:47 | XMS_ITS | Encounter Summary ---
Author Organization [employer] Address [address] [place] [address] Care Team Providers Care Care Manager Cna Name Role Phone Elsa Espitia MD Primary Care Provider [phone] Reason for Visit * Reason Comments Med Refill Encounter Details Date Type Department Care Team ([facility] st Contact Info) Description 10/29/2024 Refill [facility] [address] [place], [place] [phone] Elsa Espitia MD [address] [place], [place] [phone] Chronic low back pain, unspecified back pain [...] documented as of this encounter Care Teams Care Manager Cna Relationship Specialty Start Date End Date Elsa Espitia MD [address] [place] [address] PCP - General Family Medicine 04/04/19 Kath White [employer] 03/06/24 documented as of this encounter
--- OUTSIDE RECORDS SUMMARY | 2024-12-23 15:47 | XMS_ITS | Clinical Summary ---
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 gas. ABDOMINAL AORTA: The proximal, mid, and distal segments are normal in caliber. INFERIOR VENA CAVA: Visualized portions are normal. LIVER: Enlarged measuring up to 20 cm right lobe. The liver contour is normal. Increased echogenicity of the liver parenchyma, this can be seen in the setting of hepatic steatosis or liver parenchymal disease. Hypoechoic area in the liver adjacent to the gallbladder, the location is common for focal fat sparing. There is no intrahepatic biliary duct dilatation seen. GALLBLADDER: There are multiple gallstones, there are multiple echogenic structure adherent to the gallbladder wall probably polyps measuring up to 5 mm. The gallbladder is physiologically distended without evidence of pericholecystic fluid. COMMON BILE DUCT: Normal in caliber measuring 0.3 cm in diameter. RIGHT KIDNEY: Mild fullness of renal pelvis without caprice hydronephrosis. No hydronephrosis. No renal calculi or focal parenchymal lesions. The kidney measures 10.4 cm in maximum dimension. LEFT KIDNEY: Simple cyst upper pole 1 x 1 x 0.9 cm. No hydronephrosis or renal calculi. The kidney measures 11.8 cm in maximum dimension. SPLEEN: Echogenic structure in the spleen could be a hemangioma measure up to 4 x 5 x 6 mm The spleen measures 10.3 cm in maximum dimension. FREE FLUID: None. US/US abdomen complete IMPRESSION: 1. Hepatomegaly. Increased echogenicity of the liver parenchyma, this can be seen in the setting of hepatic steatosis or liver parenchymal disease. 2. Hypoechoic area in the liver adjacent to the gallbladder, the location is common for focal fat sparing. 3. Cholelithiasis without ultrasound evidence of acute cholecystitis. Multiple echogenic structures adherent to the gallbladder wall probably small polyps measuring 5 mm each. Attention to follow-up ultrasound in 6 months recommended. 4. There are 2 enlarged peripancreatic lymph nodes. Consider correlation with follow-up cross-sectional imaging CT scan or MRI, if not performed short-term follow-up ultrasound in 3 months advised.. 5. Fullness of right renal pelvis without caprice hydronephrosis. 6. Echogenic structure in the spleen 6 mm probably hemangioma. (Referring physician staff is being called, by physician staff assistance, to be alerted of the above critical findings and recommendations.) [employer] communication system 11/16/2024 11:10 AM CRITICAL CARE NURSE PRACTITIONER Electronically signed by: Wilson Blanca MD 11/16/2024 12:10 PM EST Dictated By: Wilson Blanca MD Signed By: <Electronically signed by Wilson Blanca MD in OV> 11/16/24 1210 DD/ 0902 TD/TT: 10/17/24 0935 Policy Service Coordinator: JUAN us [facility] External Provider IMG US PROCEDURES Edited Result - Final * BI Mammogram Screening Tomosynthesis Bilateral (03/06/2024 2:35 PM EDT) Anatomical Region Laterality Modality Breast Bilateral Mammography 03/06/2024 2:35 PM EDT Narrative 04/03/2024 10:00 PM EDT ? [facility] [place] ? [address] ?[place] [address] ? Mammography Report ? Signed ? Patient: Thiago Das,Lakshmi ? MR#: [id number] ? : 1965 ?Acct:[id number] ? Age/Sex: 58 / F ?ADM Date: 04/11/24 ? Loc: HO.MAMMO ? Attending Dr: Elsa Juarez MD ? Ordering Physician: Elsa Juarez MD ?Results: 1Negative ? Date of Service: 03/06/24 ?Follow Up: 1 Year From Orig ?? inal Mammogram ? Procedure(s): MM tomosynthesis screening BI ?? Accession Number(s): [id number] ? cc: Elsa Juarez MD ? EXAMINATION: ?? MM SCREENING DIGITAL BREAST TOMOSYNTHESIS, BILATERAL ? CLINICAL INFORMATION: ? Screening. Asymptomatic. ? COMPARISON: ?? Mammography: This study is compared with prior exams dating back to ?? 2014. ? TECHNIQUE: ?? Digital breast tomosynthesis is performed in both the craniocaudal and ?? mediolateral oblique views along with computer-aided detection (CAD). ?? Synthesized 2D images are generated from the tomosynthesis. ? FINDINGS: ?? There are scattered areas of fibroglandular density (ACR BI-RADS breast ?? composition Category b). ? There are no significant masses, abnormal calcifications, or other ?? abnormalities. ? MM/MM tomosynthesis screening BI ?? IMPRESSION: ?? No mammographic evidence of malignancy. ? ASSESSMENT: ? BI-RADS BI-RADS 1 - Negative ? RECOMMENDATION: ?? Routine annual mammography screening. ? 1 year F/U ? This examination should not preclude the clinical evaluation of a ?? suspicious palpable abnormality. ? This patient's information was entered into a reminder system with a ?? target due date for their next mammogram. ? Dictated By: ?Heike Ashley MD ? Signed By: ?<Electronically signed by Heike Ashley MD in OV> ? 04/03/242156 ? DD/ ? TD/TT: ? Policy Service Coordinator: ? Procedure Note Leo Chang - 04/03/2024 [facility] [address] [place] [address] Mammography Report Signed Patient: Lakshmi Avalos MR#: [id number] : 1965Acct:[id number] Age/Sex: 58 / FADM Date: 03/06/24 Loc: HO.MAMMO Attending Dr: Elsa Juarez MD Ordering Physician: Elsa Juarez MDResults: 1Negative Date of Service: 03/06/24Follow Up: 1 Year From Orig inal Mammogram Procedure(s): MM tomosynthesis screening BI Accession Number(s): [id number] cc: Elsa Juarez MD EXAMINATION: MM SCREENING DIGITAL BREAST TOMOSYNTHESIS, BILATERAL CLINICAL INFORMATION: Screening. Asymptomatic. COMPARISON: Mammography: This study is compared with prior exams dating back to 2014. TECHNIQUE: Digital breast tomosynthesis is performed in both the craniocaudal and mediolateral oblique views along with computer-aided detection (CAD). Synthesized 2D images are generated from the tomosynthesis. FINDINGS: There are scattered areas of fibroglandular density (ACR BI-RADS breast composition Category b). There are no significant masses, abnormal calcifications, or other abnormalities. MM/MM tomosynthesis screening BI IMPRESSION: No mammographic evidence of malignancy. ASSESSMENT: BI-RADS BI-RADS 1 - Negative RECOMMENDATION: Routine annual mammography screening. 1 year F/U This examination should not preclude the clinical evaluation of a suspicious palpable abnormality. This patient's information was entered into a reminder system with a target due date for their next mammogram. Dictated By: Heike Ashley MD Signed By: <Electronically signed by Heike Ashley MD in OV> 04/03/247 DD/ 1435 TD/TT: Policy Service Coordinator: Elsa Juarez MD [facility] BI PROCEDURES Edited Result - Final * (ABNORMAL) Lipid Panel with Reflex to Direct LDL (04/04/2023 1:59 PM EDT) Cholesterol, Total 181 <200 mg/dL [facility] HDL Cholesterol 61 > OR = 50 mg/dL [facility] Triglycerides 223(H) <150 mg/dL [facility] Comment: If a non-fasting specimen was collected, consider repeat triglyceride testing on a fasting specimen if clinically indicated. Ange et al. J. of Clin. Lipidol. 2015;9:129-169. LDL Cholesterol 89 mg/dL (calc) [facility] Comment: Reference range: <100 Desirable range <100 mg/dL for primary prevention; ?? <70 mg/dL for patients with CHD or diabetic patients with > or = 2 CHD risk factors. LDL-C is now calculated using the Mervin-Gabrielle calculation, which is a validated novel method providing better accuracy than the Friedewald equation in the estimation of LDL-C. Mervni SS et al. DISHA. 2013;310(19): 4032-4646 (http://education.Ynvisible/faq/OTJ541) Chol/HDLC Ratio 3.0 <5.0 (calc) [facility] Non-HDL Cholesterol 120 <130 mg/dL (calc) [facility] Comment: For patients with diabetes plus 1 major ASCVD risk factor, treating to a non-HDL-C goal of <100 mg/dL (LDL-C of <70 mg/dL) is considered a therapeutic option. 04/04/2023 1:59 PM EDT 04/04/2023 2:00 PM EDT Narrative [facility] - 04/05/2023 9:16 AM EDT FASTING:NO FASTING: NO us Elsa Juarez MD LAB BLOOD ORDERABLES Final Resul t [facility] [address], [place] [address] [facility] [address] [place] [address] * HEPATITIS C AB W/REFL TO HCV RNA, QN, PCR (03/30/2021 9:31 AM EDT) HEPATITIS C ANTIBODY NON-REACT ANA NON-REACT ANA [facility] INDEX 0.01 <1.00 [facility] Comment: ?? HCV antibody was non-reactive. There is no laboratory ?? evidence of HCV infection. ?? In most cases, no further action is required. However, if recent HCV exposure is suspected, a test for HCV RNA (test code 07451) is suggested. ?? For additional information please refer to http://TouchPal.Penguin Computing/faq/MJJ72r2 (This link is being provided for informational/ educational purposes only.) ?? 03/30/2021 9:31 AM EDT Elsa Juarez MD HISTORICAL/NON ORDERABLE LABS Fi nal Result Performing Organization Address [facility] Phone Number [facility] [address] * HIV 1/2 ANTIGEN/ANTIBODY,FOURTH GENERATION W/RFL (03/30/2021 9:31 AM EDT) HIV-1/2 ANTIGEN AND ANTIBODIES, 4TH GENERATION W/ REFLEX NON-REACT ANA NON-REACT ANA [facility] Comment: HIV-1 antigen and HIV-1/HIV-2 antibodies were not detected. There is no laboratory evidence of HIV infection. ?? PLEASE NOTE: This information has been disclosed to you from records whose confidentiality may be protected by state law. ??If your state requires such protection, then the state law prohibits you from making any further disclosure of the information without the specific written consent of the person to whom it pertains, or as otherwise permitted by law. A general authorization for the release of medical or other information is NOT sufficient for this purpose. ? For additional information please refer to http://TouchPal.Penguin Computing/faq/BFP773 (This link is being provided for informational/ educational purposes only.) ? The performance of this assay has not been clinically validated in patients less than 2 years old. ?? 03/30/2021 9:31 AM EDT Elsa Juarez MD LAB BLOOD ORDERABLES Final Resul t Performing Organization Address [facility] Co va Phone Number [facility] [address] from Last 3 Months or Most Recently Relevant to Health Maintenance Insurance [facility] Care Teams Elevator Operator Relationship Specialty Start Date End Date Elsa Juarez MD [address] [place] [address] PCP - General Family Medicine 04/04/19 Kath White Print Project ManagerPassenger Rate Clerk 03/06/24
[2024-12-23 16:40] LABS: Estimated Average Glucose 146 mg/dL; Hemoglobin A1C 166.5215 umol/L; Hemoglobin A1c % 6.7 % (<6.0); Total Hemoglobin (HGBA1C) 3379.1676 umol/L
[2024-12-23 17:01] LABS: Alanine Aminotransferase 18 U/L (0-31); Albumin Level 3.8 g/dL (3.5-5.0); Alkaline Phosphatase 114 U/L (39-117); Anion Gap 12 (12-20); Aspartate Amino Transferase 18 U/L (5-31); Bilirubin Total 0.6 mg/dL (0.0-1.0); Blood Urea Nitrogen 9 mg/dL (9-16); Calcium 9.8 mg/dL (8.4-10.2); Carbon Dioxide 30 mmol/L (22-29); Chloride 102 mmol/L (96-108); Creatinine Urine 95.12 mg/dL; Estimated Glomerular Filt Rate 60; Glucose Random 75 mg/dL (60-115); Lipase 21 U/L (8-78); Microalbumin Urine < 5.0 mg/L; Potassium 3.9 mmol/L (3.3-5.1); Sodium 140 mmol/L (135-145); Total Protein 7.7 g/dL (6.5-8.0)
[2024-12-23 17:18] LABS: TSH reflex Free T4 1.15 uIU/mL (0.32-4.0)
[2024-12-23 17:24] LABS: Folate 8.5 ng/mL (> or = 4.0); Vitamin B12 > 2000 pg/mL (200-900)
[2024-12-26 09:33] LABS: Cholesterol 174 mg/dL (<200); HDL Cholesterol 43 mg/dL (>40); LDL Cholesterol Calculated 79 mg/dL (<100); Triglycerides 263 mg/dL (<150)
[2024-12-26 10:39] LABS: Reflex LDLD? No
== END 2024-12-23 14:50 | disposition home or self-care (01) ==
LOC: HO.HHCL 14:49
PROVIDERS: Visit Provider Family Medicine
DX: R10.84 Generalized abdominal pain (principal); E11.22 Type 2 diabetes mellitus with diabetic chronic kidney disease; N18.30 Chronic kidney disease, stage 3 unspecified; Z79.4 Long term (current) use of insulin
CPT/HCPCS: 36415; 80053; 80061; 82043; 82570; 82607; 82746; 83036; 83690; 84443

== ENCOUNTER 2024-12-25 12:23 | Outpatient (REF) | payer MEDICAID, SELFPAY ==
--- NOTE | ~2024-12-25 | CT_ITS ---
EXAMINATION: CT ABDOMEN PELVIS WITH IV CONTRAST HISTORY: R59.0 - Localized enlarged lymph nodes COMPARISON: Comparison is made with the prior examination dated 02/01/2024. Correlation is also made with an abdominal ultrasound dated 10/17/2024. TECHNIQUE: CT scan of the abdomen and pelvis was performed following administration of 85 mL Omnipaque 350 using standard departmental protocol. Coronal and sagittal reformatted images were generated and reviewed. Oral contrast material was not administered at the request of the referring physician. This CT exam was performed with one or more of the following dose reduction techniques: automated exposure control, adjustment of the mA and/or kV according to patient size, use of iterative reconstruction technique. DLP: 58 mGy-cm FINDINGS: LOWER CHEST: The visualized lung bases are clear. There is no pleural effusion. CARDIOVASCULATURE: The heart is normal in size. There is no pericardial effusion. LIVER: The liver remains enlarged. No liver mass is identified. The hepatic and portal veins are patent. GALLBLADDER / BILE DUCTS: There is focal wall thickening and hyperemia of the fundus of the gallbladder. The appearance is unchanged dating back to a CT of the abdomen performed 09/03/2019. There is no intra or extrahepatic biliary ductal dilatation. SPLEEN: The spleen is normal in size. No focal splenic lesion is identified. PANCREAS: The pancreas is unremarkable in appearance. ADRENAL GLANDS: Within normal limits. KIDNEYS/RETROPERITONEUM: The left kidney is scarred and atrophic. No renal calculi are identified. There is no hydronephrosis. There is a 1.3 cm cyst at the upper pole of the left kidney. LYMPH NODES: There is a 2.2 cm jace hepatis/peripancreatic lymph node. There is no para-aortic lymphadenopathy. VASCULATURE: The abdominal aorta is normal in caliber. MESENTERY/PERITONEUM: No free fluid. No masses. There is no free intraperitoneal gas. STOMACH: The stomach is collapsed, limiting evaluation. SMALL BOWEL: The small bowel is normal in caliber. COLON: There is a moderate to large amount of stool throughout the colon. APPENDIX: Normal. URINARY BLADDER/PELVIC ORGANS: The urinary bladder is collapsed, limiting evaluation. The patient is status post hysterectomy. BONES / SOFT TISSUES: There is degenerative disc disease at the L5-S1 level. CT/CT abdomen pelvis w IV con IMPRESSION: 1. 2.2 cm jace hepatis/peripancreatic lymph node. No additional enlarged lymph nodes are identified. 2. Hepatomegaly. Focal thickening of the fundus of the gallbladder without change since 09/03/2019, which may represent adenomyomatosis. 3. Scarred and atrophic left kidney. Electronically signed by: Medhat Felix MD 12/25/2024 01:51 PM EST
[2024-12-25] MEDS: iohexoL 350 MG/ML 100 ML INFUS..BTL IV (13:32)
--- OUTSIDE RECORDS SUMMARY | 2024-12-25 16:11 | XMS_ITS | Encounter Summary ---
Author Organization [employer] Address [address] 7[address] [place] [address] Care Team Providers Care Pipe Setter Name Role Phone Elsa Espitia MD Primary Care Provider [phone] Reason for Visit * Reason Comments Med Refill Encounter Details Date Type Department Care Team ([facility] st Contact Info) Description 12/08/2024 Refill [facility] [address] [place], [place] [phone] Elsa Espitia MD 230 [place], [place] [phone] Type 2 diabetes mellitus with other specified complication, with long-term current use of insulin ([facility]) Social History Tobacco Use Types [...] complication, with long-term current use of insulin ([facility]) documented in this encounter Additional Health Concerns Assessment Noted Time PHQ-9 Depression Total Score: 0 09/18/20 10:38 AM EDT documented as of this encounter Care Teams Pipe Setter Relationship Specialty Start Date End Date Elsa Espitia MD [address] [place] [address] PCP - General Family Medicine 04/04/19 Kath White Window Shade Cloth SewerMilitary Administrative Technician 03/06/24 documented as of this encounter
--- OUTSIDE RECORDS SUMMARY | 2024-12-25 16:11 | XMS_ITS | Encounter Summary ---
Author Organization [employer] Address [address] 7[address] [place] [address] Care Team Providers Care Trapeze Artist Name Role Phone Elsa Espitia MD Primary Care Provider [phone] Reason for Visit * Reason Comments Med Refill Encounter Details Date Type Department Care Team ([facility] st Contact Info) Description 10/29/2024 Refill [facility] 230 [place], [place] [phone] Elsa Espitia MD 230 [place], [place] [phone] Chronic low back pain, unspecified back pain [...] documented as of this encounter Care Teams Trapeze Artist Relationship Specialty Start Date End Date Elsa Espitia MD [address] [place] [address] PCP - General Family Medicine 04/04/19 Kath White Sweeper Cleaner IndustrialInvasive Physician 03/06/24 documented as of this encounter
--- OUTSIDE RECORDS SUMMARY | 2024-12-25 16:11 | XMS_ITS | Clinical Summary ---
Author Organization [facility] Facility Address [address] [address] Care Team Providers Care Food Service Order Clerk Name Role Phone Elsa Espitia MD Primary Care Provider [phone] Social History Tobacco Use Types Packs/Day Years [...] age to complete this topic [place] Care Teams Food Service Order Clerk Relationship Specialty Start Date End Date Elsa Espitia MD PCP - General Family Medicine 03/20/22
--- OUTSIDE RECORDS SUMMARY | 2024-12-25 16:11 | XMS_ITS | Encounter Summary ---
Author Organization [employer] Address [address] [place] [address] Care Team Providers Care Transportation Logistics Internship Name Role Phone Elsa Espitia MD Primary Care Provider [phone] Encounter Details Date Type Department Care Team (Late st Contact Info) Description 12/23/2024 3:15 PM EST Office Visit [facility] 230 [place], [place] [phone] Elsa Espitia MD 230 [place], [place] [phone] Asthma with COPD (CMS/HCC) (Primary Dx); Nocturnal [...] disease, with long-term current use of insulin ([facility]) POCT GLUCOSE Routine 12/23/2024 3:17 PM EST Type 2 diabetes mellitus with stage 3b chronic kidney disease, with long-term current use of insulin ([facility]) documented in this encounter Results * (ABNORMAL) [...] encounter Visit Diagnoses Diagnosis Asthma with COPD ([facility])- Primary Nocturnal hypoxemia Essential hypertension Unspecified essential hypertension Type 2 diabetes mellitus with stage 3 chronic kidney disease, with long-term current use of insulin, unspecified whether stage 3a or 3b CKD ([facility]) Chronic low back pain, unspecified back pain laterality, unspecified whether sciatica present documented in this encounter Additional Health Concerns Assessment Noted Time PHQ-9 Depression Total Score: 0 09/18/ 24 10:38 AM EDT documented as of this encounter Care Teams Transportation Logistics Internship Relationship Specialty Start Date End Date Elsa Espitia MD [address] [place] [address] PCP - General Family Medicine 04/04/19 Kath White Chronic ManagerMilk Hauler 03/06/24 documented as of this encounter
--- OUTSIDE RECORDS SUMMARY | 2024-12-25 16:11 | XMS_ITS | Encounter Summary ---
Author Organization [employer] Address [address] [place] [address] Care Team Providers Care Drying Unit Felting Machine Operator Name Role Phone Elsa Espitia MD Primary Care Provider [phone] Reason for Visit * Reason Comments Med Refill Encounter Details Date Type Department Care Team ([facility] st Contact Info) Description 12/14/2024 Refill [facility]INE 230 [place], [place] [phone] Elsa Espitia MD 230 [place], [place] [phone] Type 2 diabetes mellitus with other specified complication, with long-term current use of insulin ([facility]) Social History Tobacco Use Types Packs/Day Years [...] complication, with long-term current use of insulin ([facility]) documented in this encounter Additional Health Concerns Assessment Noted Time PHQ-9 Depression Total Score: 0 09/18/20 10:38 AM EDT documented as of this encounter Care Teams Drying Unit Felting Machine Operator Relationship Specialty Start Date End Date Elsa Espitia MD [address] [place] [address] PCP - General Family Medicine 04/04/19 aKth White Steam Pipe FitterCar Retarder Operator 03/06/24 documented as of this encounter
--- OUTSIDE RECORDS SUMMARY | 2024-12-25 16:11 | XMS_ITS | Encounter Summary ---
Author Organization [employer] Address [address] [place] [address] Care Team Providers Care Executive Compensation Analyst Name Role Phone Elsa Espitia MD Primary Care Provider Reason for Visit * Reason Comments Med Refill Encounter Details Date Type Department Care Team ([facility] st Contact Info) Description 12/10/2024 Refill [facility]INE 230 [place], [place] [phone] Natalie Flores MD 230 [place], [place] [phone] Gastroesophageal reflux disease, unspecified whether esophagitis present [...] documented as of this encounter Care Teams Executive Compensation Analyst Relationship Specialty Start Date End Date Elsa Espitia MD [address] [place] [address] PCP - General Family Medicine 04/04/19 Kath White Wallboard WorkerBush And Vine Fruit Crop Farmer 03/06/24 documented as of this encounter
--- OUTSIDE RECORDS SUMMARY | 2024-12-25 16:11 | XMS_ITS | Encounter Summary ---
Author Organization [employer] Address [address] [place] [address] Care Team Providers Care Merchandise Buyer Name Role Phone Elsa Espitia MD Primary Care Provider [phone] Reason for Visit * Reason Comments Med Refill Encounter Details Date Type Department Care Team ([facility] st Contact Info) Description 11/29/2024 Refill [facility]INE 230 [place], [place] [phone] Elsa Espitia MD 230 [place], [place] [phone] Social History Tobacco Use Types Packs/Day Years [...] documented as of this encounter Care Teams Merchandise Buyer Relationship Specialty Start Date End Date Elsa Espitia MD [address] [place] [address] PCP - General Family Medicine 04/04/19 Kath White Distribution Operations ManagerEarth Science Teacher 03/06/24 documented as of this encounter
--- OUTSIDE RECORDS SUMMARY | 2024-12-25 16:11 | XMS_ITS | Encounter Summary ---
Author Organization [employer] Address [address] [place] [address] Care Team Providers Care Maxillofacial Prosthetics Dentist Name Role Phone Elsa Espitia MD Primary Care Provider [phone] Reason for Visit * Reason Comments Med Refill Encounter Details Date Type Department Care Team ([facility] st Contact Info) Description 09/27/2023 Refill [facility] 230 [place], [place] [phone] Curt Carnes MD 230 [place], [place] [phone] Gastroesophageal reflux disease, unspecified whether esophagitis present Social History Tobacco Use Types Packs/Day Years Used Date Smoking Tobacco: Former Cigarettes Passive Smoke Exposure: Past Smokeless Tobacco: Never Depression Answer Date Recorded Patient Health Questionnaire-9 Score 0 06/01/2023 Housing Stability Answer Date Recorded What is your housing situation today? I have aymzoie panda 09/26/[address] you [...] t he electric, gas, oil or water [employer] threatened to shut off services in your [...] documented as of this encounter Care Teams Maxillofacial Prosthetics Dentist Relationship Specialty Start Date End Date Elsa Espitia MD 230 [place] [address] PCP - General Family Medicine 04/04/19 Kath White Nursing SpecialistQuality Assurance Clerk 03/06/24 documented as of this encounter
--- OUTSIDE RECORDS SUMMARY | 2024-12-25 16:11 | XMS_ITS | Encounter Summary ---
Author Organization [employer] Address [address] [place] [address] Care Team Providers Care Consultant Luxury And Auto. Vice President [employer]ar Brand (Ex ) Name Role Phone Elsa Espitia MD Primary Care Provider Reason for Visit * Reason Onset Date Comments Med Refill 07/22/2024 Encounter Details Date Type Department Care Team ([facility] st Contact Info) Description 07/22/2024 Telephone [facility] MED[facility]INE 230 [place], [place] [phone] Elsa Espitia MD 230 [place], [place] [phone] Med Refill Social History Tobacco Use Types [...] 50 MG tablet To be sent to: [facility] documented in this encounter Plan of Treatment Not on file documented as of this encounter Visit Diagnoses Not on filedocumented in this encounter Additional Health Concerns Assessment Noted Time PHQ-9 Depression Total Score: 0 06/01/20 23 10:46 AM EDT documented as of this encounter Care Teams Consultant Luxury And Auto. Vice President [employer] (Ex ) Relationship Specialty Start Date End Date Elsa Espitia MD 230 [place] [address] PCP - General Family Medicine 04/04/19 Kath White Cost Recovery TechnicianAncient Art Curator 03/06/24 documented as of this encounter
--- OUTSIDE RECORDS SUMMARY | 2024-12-25 16:11 | XMS_ITS | Encounter Summary ---
Author Organization [employer] Address [address] [place] [address] Care Team Providers Care County Court Judge Name Role Phone Elsa Espitia MD Primary Care Provider [phone] Reason for Visit * Reason Comments Med Refill Encounter Details Date Type Department Care Team ([facility] st Contact Info) Description 12/18/[address] [facility] 230 [place], [place] [phone] Emmanuelle Miranda, ANP 230 [place] [address] Chronic low back pain, unspecified back pain [...] Romero RN - 12/18/2024 4:09 PM EST EXECUTIVE SECRETARY SOCIAL WELFARE checked. Pt last picked up 10 day [...] documented as of this encounter Care Teams County Court Judge Relationship Specialty Start Date End Date Elsa Espitia MD 230 [place] [address] PCP - General Family Medicine 04/04/19 Kath White Site ForemanDrapery Examiner 03/06/24 documented as of this encounter
--- OUTSIDE RECORDS SUMMARY | 2024-12-25 16:11 | XMS_ITS | Encounter Summary ---
Author Organization [employer] Address [address] [place] [address] Care Team Providers Care Supervisor Electronic Testing Name Role Phone Elsa Espitia MD Primary Care Provider [phone] Reason for Visit * Reason Onset Date Comments Medication Question 07/22/2024 Encounter Details Date Type Department Care Team ([facility] Contact Info) Description 07/22/2024 Telephone [facility] MEDICINE [address] [place], [place] [phone] Elsa Espitia MD [address] [place], [place] [phone] Medication Question Social History Tobacco Use Types [...] EDT TC placed to pt with a [employer] flake miller wheat and oats to inquire which prescription pt needs a refill on. Per pt, the insulin pen needle (Pentips) 32G X 4 mm is needed. Medication queued to PCP for review * Telephone Encounter - Angel Gallo - 07/22/2024 1:44 PM EDT Tc from pt requesting needles for checking blood sugar. If any questions you can contact pt at [phone]. (Slovenian Speaker) documented in this encounter Plan of Treatment Not on file documented as of this encounter Visit Diagnoses Not on filedocumented in this encounter Additional Health Concerns Assessment Noted Time PHQ-9 Depression Total Score: 0 06/01/20 23 10:46 AM EDT documented as of this encounter Care Teams Supervisor Electronic Testing Relationship Specialty Start Date End Date Elsa Espitia MD [address] [place] [address] PCP - General Family Medicine 04/04/19 Kath White Diabetes PhysicianElectro Optics Engineer 03/06/24 documented as of this encounter
--- OUTSIDE RECORDS SUMMARY | 2024-12-25 16:11 | XMS_ITS | Encounter Summary ---
Author Organization [employer] Address [address] [place] [address] Care Team Providers Care Gas Combustion Engineer Name Role Phone Elsa Espitia MD Primary Care Provider [phone] Encounter Details Date Type Department Care Team [...] documented as of this encounter Care Teams Gas Combustion Engineer Relationship Specialty Start Date End Date Elsa Espitia MD [address] [place] [id number] PCP - General Family Medicine 04/04/19 Kath White Geospatial Program Management OfficerAmmunition Officer 03/06/24 documented as of this encounter
--- OUTSIDE RECORDS SUMMARY | 2024-12-25 16:11 | XMS_ITS | Encounter Summary ---
Author Organization [employer] Address [address] [place] [address] Care Team Providers Care Farm Tractor Operator Name Role Phone Elsa Espitia MD Primary Care Provider [phone] Encounter Details Date Type Department Care Team ([facility] st Contact Info) Description 12/18/2024 1:30 PM EST Office Visit [facility] [address] [place] [address] [place], [place], OD [address] [place] [address] Presbyopia (Primary Dx) Social History Tobacco Use Types Packs/Day Years [...] AM EDT documented as of this encounter Progress Notes * [place] Christine OD - 12/18/2024 1:30 PM EST MH glasses were dispensed. documented in this encounter Plan of Treatment Not on file documented as of this encounter Visit Diagnoses Diagnosis Presbyopia- Primary documented in this encounter Additional Health Concerns Assessment Noted Time PHQ-9 Depression Total Score: 0 09/18/20 10:38 AM EDT documented as of this encounter Care Teams Farm Tractor Operator Relationship Specialty Start Date End Date Elsa Espitia MD [address] [place] [id number] PCP - General Family Medicine 04/04/19 Kath White Weatherization InstallerWarehouse Picker 03/06/24 documented as of this encounter
--- OUTSIDE RECORDS SUMMARY | 2024-12-25 16:11 | XMS_ITS | Encounter Summary ---
Author Organization [employer] Address [address] [place] [address] Care Team Providers Care Scientific Programmer Analyst Name Role Phone Elsa Espitia MD Primary Care Provider [phone] Encounter Details Date Type Department Care Team ([facility] st Contact Info) Description 07/22/2024 Orders Only [facility] MEDICINE [address] [place], [place] [phone] Elsa Espitia MD [address] [place], [place] [phone] Social History Tobacco Use Types Packs/Day Years [...] documented as of this encounter Care Teams Scientific Programmer Analyst Relationship Specialty Start Date End Date Elsa Espitia MD [address] [place] [address] PCP - General Family Medicine 04/04/19 Kath White 5Th Grade TeacherChronic Disease Manager 03/06/24 documented as of this encounter
--- OUTSIDE RECORDS SUMMARY | 2024-12-25 16:11 | XMS_ITS | Clinical Summary ---
Author Organization [employer] Address [address] [place] [address] Care Team Providers Care Third Cook Name Role Phone Elsa Juarez MD Primary Care Provider [phone] Allergies Active Allergy Reactions Criticality Noted Date [...] 1 Active ergocalciferol (Vitamin D2) 1.25 MG (97170 UT) capsuleIndicati ons:Vitamin D deficiency TAKE 1 CAPSULE BY MOUTH ONCE WEEKLY ON SUNDAY MORNING 12 capsule 1 Active Continuous Glucose Delimber Operator (FreeStyle Teja 2 Rogerson) device Scan sensor every 8 hours 1 [...] complication, with long-term current use of insulin (CMS/[facility]) INJECT ONE PEN (=0.75MG) SUBCUTANEOUSLY ONCE A [...] & Plan (09/18/2024 12:31 PM EDT): -current [facility] provider: [facility] -current medications: clonidine; hydroxyzine; sertraline; amitriptyline -will add trazodone 50mg at bed time for insomnia -hydroxyzine was decreased due to prolonged QT -she was able to contract her safety today Assessment & Plan (02/08/2024 5:53 PM EDT): -current [facility] provider: [facility] -current medications: clonidine; hydroxyzine; sertraline; amitriptyline -hydroxyzine was decreased due to prolonged QT -she was able to contract her safety today Assessment & Plan (07/21/2023 7:09 AM EDT): -current [facility] provider: [facility] -current medications: clonidine; hydroxyzine; sertraline; amitriptyline -hydroxyzine was decreased due to prolonged QT -she was able to contract her safety today Assessment & Plan (04/05/2023 6:21 PM EDT): -current S provider: [facility] -current medications: clonidine; hydroxyzine; sertraline; amitriptyline -incease amitriptyline to 50 mg qhs for insomnia -she was able to contract her safety today Chronic pain of right knee 04/05/2023 Assessment & Plan (09/18/2024 12:30 PM EDT): -s/p right knee arthroscopy and partial lateral meniscectomy [place] [address] Cole -Seen by [facility] in Aug 2019 -Waiting for hyaluronate [...] Nov [address] Cole -Seen by [facility] in Aug 2019 -Waiting for hyaluronate [...] Nov [address] Cole -Seen by [facility] in Aug 2019 -Waiting for hyaluronate [...] Nov [address] Cole -Seen by [facility] in Aug 2019 -Waiting for hyaluronate [...] tunnel release surgery; patient was seen for artist representative for clearance. 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 -Last exacerbation in February 2022, acute respiratory failure with pneumonia, hospitalized in [facility] -Maintenance medication: fluticasone furonate / vilanterol (Breo) and umeclidinium (Incruse) -Treatment Hx: Previously Alvesco and budesonide / formoterol (Symbicort) -Rescue medication: albuterol HFA and nebulizer -Congratulated on smoking cessation effort, encourage to continue Assessment & Plan (07/21/2023 6:58 AM EDT): Pt is following w/ sailing instructor, last seen on 05/25/22. -Last exacerbation in February 2022, acute respiratory failure with pneumonia, hospitalized in [facility] -Maintenance medication: Symbicort -Treatment Hx: Previously Alvesco -Rescue medication: albuterol HFA and nebulizer -Congratulated on smoking cessation effort, encourage to continue Assessment & Plan (04/05/2023 6:11 PM EDT): Pt is following w/ sailing instructor, last seen on 05/25/22. -Last exacerbation in February 2022, acute respiratory failure with pneumonia, hospitalized in [facility] -Maintenance medication: Previously Alvesco, but she has not had one for a while. Start Symbicort. 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 -Last exacerbation in February 2022, acute respiratory failure with pneumonia, hospitalized in [facility] -Maintenance medication: Symbicort -Rescue medication: albuterol HFA [...] - Rx Lidoderm Patch -Referred to a agriculture extension specialist in Sep 2022 Assessment & Plan [...] - Rx Lidoderm Patch -Referred to a agriculture extension specialist; consider referring her to suction roller Assessment & Plan (09/21/2024 5:28 AM EDT): [...] - Evaluated by both pain management and agriculture extension specialist, recommending injection treatment which patient no longer desires. - Currently prescribed lidocaine patch, gabapentin (for both chronic pain of knee, carpal tunnel syndrome, and chronic back pain), and tramadol. - Reviewed judicious use of medications. -Referred to a agriculture extension specialist; consider referring her to suction roller - Patient declined injection treatment referral again [...] Nov [address] Cole -Seen by [facility] orth[facility] in Aug 2019 -Waiting for hyaluronate [...] w QTC prolongation( hydroxyzine) -referred today to artist representative to further eval QTC prolongation -I called today her previous artist representative who was not concern w prolongation for surgery but last eval pt 2 years ago -I would rather have a new evaluation to confirm there are no cardiac risk associated for this nor urgent surgery.-requested referral to fabrication specialist to be done as soon as [...] Encounters Date Type Department Care Team Description 12/25/2024 Orders Only [facility] External Provider, [facility] 12/23/2024 3:15 PM EST Office Visit [facility] [address] [place] [address] Elsa Juarez MD Asthma with COPD ([facility]) (Primary Dx); Nocturnal hypoxemia; Essential hypertension; Type 2 diabetes mellitus with stage 3b chronic kidney disease, with long-term current use of insulin ([facility]); Type 2 diabetes mellitus with stage 3 chronic kidney disease, with long-term current use of insulin, unspecified whether stage 3a or 3b CKD ([facility]); Chronic low back pain, unspecified back pain laterality, unspecified whether sciatica present 12/23/2024 Travel 12/18/2024 1:30 PM EST Office Visit [facility] [address] [place] [address] Emmett, [place], OD Presbyopia (Primary Dx) 12/18/2024 Refill [facility] [address] [place] [address] Emmanuelle Miranda ANP Chronic low back pain, unspecified back pain laterality, unspecified whether sciatica present 12/14/2024 Refill [facility] [address] [place] [address] Elsa Juarez MD Type 2 diabetes mellitus with other specified complication, with long-term current use of insulin ([facility]) 12/10/2024 Refill [facility] [address] [place] [address] Natalie Flores MD Gastroesophageal reflux disease, unspecified whether esophagitis present 12/10/2024 Refill [facility] [address] [place] [address] Elsa Juarez MD 12/08/2024 Refill [facility] [address] [place] [address] Elsa Juarez MD Type 2 diabetes mellitus with other specified complication, with long-term current use of insulin (CMS/HCC) 11/29/2024 Refill [facility] [address] [place] [address] Elsa Juarez MD 11/17/2024 Refill [facility] [address] [place] [address] Elsa Juarez MD 10/29/2024 Refill [facility] [address] [place] [address] Elsa Juarez MD Chronic low back pain, unspecified back pain laterality, unspecified whether sciatica present 10/29/2024 Refill [facility] [address] [place] [address] Elsa Juarez MD Chronic low back pain, unspecified back pain laterality, unspecified whether sciatica present 10/27/2024 1:00 PM EST Office Visit [facility] [address] [place] [address] Pooja Castillo, ANNAMARIA Type 2 diabetes mellitus without complication, with long-term current use of insulin (CMS/[facility]) (Primary Dx); Combined forms of age-related cataract of both eyes; Hyperopia of both eyes 10/27/2024 Travel 10/20/2024 Telephone [facility] [address] [place] [address] Ramandeep Anthony [employer] 10/20/2024 Refill [facility] [address] [place] [address] Elsa Juarez MD Depression, unspecified depression type; Insomnia, unspecified type; Chronic pain due to trauma 10/17/2024 Orders Only [facility] External Provider, [facility] 10/15/2024 Refill [facility] [address] [place] [address] Elsa Juarez MD Depression, unspecified depression type; Insomnia, unspecified type; Chronic pain due to trauma; Gastroesophageal reflux disease, unspecified whether esophagitis present 10/09/2024 Telephone [facility] [address] [place] [address] Elsa Juarez MD 10/07/2024 2:00 PM EST Clinical Support [facility] [address] [place] [address] Lisa Medley, RN Type 2 diabetes mellitus with stage 3b chronic kidney disease, with long-term current use of insulin ([facility]) 10/07/2024 Travel 10/06/2024 Travel 09/25/2024 Telephone [facility] [address] [place] [address] Roma Barraza [employer] dme 02 09/24/2024 Telephone [facility] [address] [place] [address] Katie Romero, undercar specialist from Last 3 Months Immunizations Name Administration [...] history exists Diabetes: Hemoglobin A1C 03/23/2025 025, 12/23/2024, 09/18/2024, Additional history exists Alcohol/Substance Use Screening 09/18/2025 09/18/2024 Depression Screening 09/18/2025 09/18/2024, 09/18/20 SDOH Screening 09/18/2025 09/18/2024 Tobacco Screening 12/23/2025 12/23/2024 Mammogram 03/06/2026 03/06/2024, 06/0 07/2022, 05/03/2021 DTaP/Tdap/Td Vaccines (3 - Td or Tdap) 05/17/2026 05/17/2016, 09/25/2012, 08/11/2009 Eye Exam 10/27/2026 10/27/2024, 120 12/2023, 10/27/2024, Additional history exists RSV Patients and Patients Aged 60 years or older (1 - 1-dose 75+ series) 2041 Hepatitis B Vaccines Completed 05/17/2016, 12/21/2015, 08/18/2014 Zoster Vaccines Completed 10/11/2020, 07/19/2020 HIV Screening Completed 03/30/2021 Hepatitis C Screening Completed 03/30/2021 Influenza Vaccine Completed 09/18/2024, , 08/28/2022, Additional history exists Pneumococcal Vaccine: 50+ Years Completed 12/23/2024, 05/17/2016, 03/14/2011 Cervical Cancer Screening [...] Procedure Name Priority Date/Time Associated Diagnosis Comments CT ABDOMEN PELVIS W CONTRAST Routine 12/25/2024 1:09 PM EST POCT GLYCOSYLATED HEMOGLOBIN (HGB A1C) Routine 12/23/2024 3:19 PM EST Type 2 diabetes mellitus with stage 3b chronic kidney disease, with long-term current use of insulin (CMS/HCC) POCT GLUCOSE Routine 12/23/2024 3:17 PM EST Type 2 diabetes mellitus with stage 3b chronic kidney disease, with long-term current use of insulin (CMS/HCC) LIPASE Routine 12/23/2024 2:54 PM EST Generalized abdominal pain TSH W/REFLEX TO FT4 Routine 12/23/2024 2 :54 PM EST Type 2 diabetes mellitus with stage 3 chronic kidney disease, with long-term current use of insulin, unspecified whether stage 3a or 3b CKD (CMS/HCC) COMPREHENSIVE METABOLIC PANEL Routine 12/23/2024 2:54 PM EST Type 2 diabetes mellitus with stage 3 chronic kidney disease, with long-term current use of insulin, unspecified whether stage 3a or 3b CKD (CMS/HCC) HEMOGLOBIN A1C Routine 12/23/2024 2:54 PM EST Type 2 diabetes mellitus with stage 3 chronic kidney disease, with long-term current use of insulin, unspecified whether stage 3a or 3b CKD (CMS/HCC) ALBUMIN, RANDOM URINE W/CREATININE Routine 12/23/2024 2:54 PM EST Type 2 diabetes mellitus with stage 3 chronic kidney disease, with long-term current use of insulin, unspecified whether stage 3a or 3b CKD (CMS/HCC) VITAMIN B12/FOLATE, SERUM PANEL Routine 12/23/2024 2:54 PM EST Type 2 diabetes mellitus with stage 3 chronic kidney disease, with long-term current use of insulin, unspecified whether stage 3a or 3b CKD (CMS/HCC) US ABDOMEN COMPLETE Routine 10/17/2024 9 [...] Recently Relevant to Health Maintenance Results * CT Abdomen Pelvis w/ Contrast (12/25/2024 1:09 PM EST) Anatomical Region Laterality Modality Body, Pelvis, Abdomen Computed T omography 12/25/2024 1:09 PM EST Narrative 12/25/2024 1:53 PM EST ? [facility] ?[address] ?[place] [address] ? CT Scan Report ? Signed ? Patient: Robbie,Evangelia ? MR#: [id number] ? : 1965 ?Acct:[id number] ? Age/Sex: 59 / F ?ADM Date: 12/25/24 ? Loc: HO.CT ? Attending Dr: Nubia Mtz MD ? Ordering Physician: Nubia Mtz MD ?? Date of Service: 12/25/24 ?? Procedure(s): CT abdomen pelvis w IV con ?? Accession Number(s): [id number] ? cc: Elsa Juarez MD; Nubia Mtz MD ? Report Number: ?? [id number]: Total DLP = ??258.00 mGy-cm ?? EXAMINATION: ??CT ABDOMEN PELVIS WITH IV CONTRAST ? HISTORY: R59.0 - Localized enlarged lymph nodes ? COMPARISON: Comparison is made with the prior examination dated ?? 02/01/2024. Correlation is also made with an abdominal ultrasound dated ?? 10/17/2024. ? TECHNIQUE: CT scan of the abdomen and pelvis was performed following ?? administration of 85 mL Omnipaque 350 using standard departmental ?? protocol. ?? Coronal and sagittal reformatted images were generated and ?? reviewed. ??Oral contrast material was not administered at the request ?? of the referring physician. ? This CT exam was performed with one or more of the following dose ?? reduction techniques: automated exposure control, adjustment of the mA ?? and/or kV according to patient size, use of iterative reconstruction ?? technique. ? DLP: 58 mGy-cm ? FINDINGS: ? LOWER CHEST: The visualized lung bases are clear. There is no pleural ?? effusion. ? CARDIOVASCULATURE: The heart is normal in size. ??There is no ?? pericardial effusion. ? LIVER: ??The liver remains enlarged. ??No liver mass is identified. ??The ?? hepatic and portal veins are patent. ? GALLBLADDER / BILE DUCTS: ??There is focal wall thickening and hyperemia ?? of the fundus of the gallbladder. The appearance is unchanged dating ?? back to a CT of the abdomen performed 09/03/2019. There is no intra or ?? extrahepatic biliary ductal dilatation. ? SPLEEN: The spleen is normal in size. No focal splenic lesion is ?? identified. ? PANCREAS: The pancreas is unremarkable in appearance. ? ADRENAL GLANDS: Within normal limits. ? KIDNEYS/RETROPERITONEUM: The left kidney is scarred and atrophic. No ?? renal calculi are identified. There is no hydronephrosis. ??There is a ?? 1.3 cm cyst at the upper pole of the left kidney. ? LYMPH NODES: ??There is a 2.2 cm jace hepatis/peripancreatic lymph ?? node. There is no para-aortic lymphadenopathy. ? VASCULATURE: ??The abdominal aorta is normal in caliber. ? MESENTERY/PERITONEUM: No free fluid. No masses. ??There is no free ?? intraperitoneal gas. ? STOMACH: ??The stomach is collapsed, limiting evaluation. ? SMALL BOWEL: ?? The small bowel is normal in caliber. ? COLON: ??There is a moderate to large amount of stool throughout the ?? colon. ? APPENDIX: ??Normal. ? URINARY BLADDER/PELVIC ORGANS: The urinary bladder is collapsed, ?? limiting evaluation. ??The patient is status post hysterectomy. ? BONES / SOFT TISSUES: ??There is degenerative disc disease at the L5-S1 ?? level. ? CT/CT abdomen pelvis w IV con ?? IMPRESSION: ? 1. 2.2 cm jace hepatis/peripancreatic lymph node. No additional ?? enlarged lymph nodes are identified. ? 2. Hepatomegaly. Focal thickening of the fundus of the gallbladder ?? without change since 09/03/2019, which may represent adenomyomatosis. ? 3. Scarred and atrophic left kidney. ? Electronically signed by: ??Medhat Felix MD ??12/25/2024 01:51 PM EST ?? RP ? Dictated By: ?Medhat Felix MD ? Signed By: ?<Electronically signed by Medhat Felix MD in OV> ?12/25/ 1351 ? DD/ 1309 ? TD/TT: 12/25/ 1330 ? Turning Machine Set Up Operator: ? Procedure Note Bernardo, Image - 12/25/[address] [address] [address] Scan Report Signed Patient: Lakshmi Avalos MR#: [id number] : 1965Acct:[id number] Age/Sex: 59 / FADM Date: 12/25/24 Loc: HO.CT Attending Dr: Nubia Mtz MD Ordering Physician: Nubia Mtz MD Date of Service: 12/25/24 Procedure(s): CT abdomen pelvis w IV con Accession Number(s): [id number] cc: Elsa Juarez MD; Nubia Mtz MD Report Number: [id number]: Total DLP = 258.00 mGy-cm EXAMINATION: CT ABDOMEN PELVIS WITH IV CONTRAST HISTORY: R59.0 - Localized enlarged lymph nodes COMPARISON: Comparison is made with the prior examination dated 02/01/2024. Correlation is also made with an abdominal ultrasound dated 10/17/2024. TECHNIQUE: CT scan of the abdomen and pelvis was performed following administration of 85 mL Omnipaque 350 using standard departmental protocol. Coronal and sagittal reformatted images were generated and reviewed. Oral contrast material was not administered at the request of the referring physician. This CT exam was performed with one or more of the following dose reduction techniques: automated exposure control, adjustment of the mA and/or kV according to patient size, use of iterative reconstruction technique. DLP: 58 mGy-cm FINDINGS: LOWER CHEST: The visualized lung bases are clear. There is no pleural effusion. CARDIOVASCULATURE: The heart is normal in size. There is no pericardial effusion. LIVER: The liver remains enlarged. No liver mass is identified. The hepatic and portal veins are patent. GALLBLADDER / BILE DUCTS: There is focal wall thickening and hyperemia of the fundus of the gallbladder. The appearance is unchanged dating back to a CT of the abdomen performed 09/03/2019. There is no intra or extrahepatic biliary ductal dilatation. SPLEEN: The spleen is normal in size. No focal splenic lesion is identified. PANCREAS: The pancreas is unremarkable in appearance. ADRENAL GLANDS: Within normal limits. KIDNEYS/RETROPERITONEUM: The left kidney is scarred and atrophic. No renal calculi are identified. There is no hydronephrosis. There is a 1.3 cm cyst at the upper pole of the left kidney. LYMPH NODES: There is a 2.2 cm jace hepatis/peripancreatic lymph node. There is no para-aortic lymphadenopathy. VASCULATURE: The abdominal aorta is normal in caliber. MESENTERY/PERITONEUM: No free fluid. No masses. There is no free intraperitoneal gas. STOMACH: The stomach is collapsed, limiting evaluation. SMALL BOWEL: The small bowel is normal in caliber. COLON: There is a moderate to large amount of stool throughout the colon. APPENDIX: Normal. URINARY BLADDER/PELVIC ORGANS: The urinary bladder is collapsed, limiting evaluation. The patient is status post hysterectomy. BONES / SOFT TISSUES: There is degenerative disc disease at the L5-S1 level. CT/CT abdomen pelvis w IV con IMPRESSION: 1. 2.2 cm jace hepatis/peripancreatic lymph node. No additional enlarged lymph nodes are identified. 2. Hepatomegaly. Focal thickening of the fundus of the gallbladder without change since 09/03/2019, which may represent adenomyomatosis. 3. Scarred and atrophic left kidney. Electronically signed by: Medhat Felix MD 12/25/2024 01:51 PM EST Dictated By: Medhat Felix MD Signed By: <Electronically signed by Medhat Felix MD in OV> 12/25/24 1351 DD/ 1309 TD/TT: 12/25/24 1330 Turning Machine Set Up Operator: [facility] External Provider IMG CT PROCEDURES Final Result * (ABNORMAL) POCT glycosylated hemoglobin (Hgb A1c) (12/23/2024 3:19 PM EST) Hemoglobin A1C 7.0(A) 4.0 - 6.0 % QC Media Lot # [id number] Lot# Expiration Date ,764 Blood Capillary blood specimen / Unknown 12/23/2024 3:19 PM EST Elsa Juarez MD POINT OF CARE TEST ENTER/EDIT OR DERABLES Final Result * POCT glucose manually resulted (12/23/2024 3:17 PM EST) Glucose Blood, POC 104 60 - 200 mg/dL QC Media Lot # [id number] Lot# Expiration Date 450121 Blood Capillary blood specimen / Unknown 12/23/2024 3:17 PM EST Elsa Juarez MD POINT OF CARE TEST ENTER/EDIT OR DERABLES Final Result * (ABNORMAL) Vitamin B12/Folate, Serum Panel (12/23/2024 2:54 PM EST) Pathologist [facility] Vitamin B12 >2,000(H ) 200 - 900 pg/mL [facility] Comment:NORMAL 200-900 PG/ML INDETERMINATE 160-199 PG/ML DEFICIENT < 160 PG/ML Folate 8.5 > or = 4.0 ng/mL [facility] Comment:Reference Values:> o r = 4.0 ng/mL< 4.0 ng/mL suggests folate deficiency Methotrexate, aminopterin and folinic acid(leucovorin) are chemotherapeutic agents whose molecularstructures are similar to folate; therefore, the Architectfolate assay cannot be used for patients using these drugs. 12/23/2024 2:54 PM EST 12/23/2024 4:16 PM EST Elsa Juarez MD LAB BLOOD ORDERABLES Final Resul t [facility] [address] [place] [phone] * TSH with Reflex to Free T4 (12/23/2024 2:54 PM EST) Pathologist [facility] TSH reflex Free T4 1.15 0.32 - 4.0 uIU/mL [facility] Blood 12/23/2024 2:54 PM EST 12/23/2024 4:13 PM EST us Elsa Juarez MD LAB BLOOD ORDERABLES Final Resul t Performing Organization Address [facility] Co de Phone Number [facility] [address] [place] [phone] * Albumin, Random Urine W/Creatinine (12/23/2024 2:54 PM EST) Creatinine, Urine 95.12 mg/dL [facility] Microalbumin Urine <5.0 mg/L [facility] Microalbum Creatinine Ratio Ur TNP <30 ug/mg cr [facility] Comment:Unable to calculate albumin/creatinine ratio due to lowmicroalbumin or creatinine result. Urine 12/23/2024 2:54 PM EST 12/23/2024 4:00 PM EST us Elsa Juarez MD LAB URINE ORDERABLES Final Resul t Performing Organization Address [facility] Co de Phone Number [facility] [address] [place] [phone] * Lipase (12/23/2024 2:54 PM EST) Pathologist [facility] Lipase 21 8 - 78 U/L [facility] Blood Venous blood specimen / Unknown 12/23/2024 2:54 PM EST 12/23/2024 4:13 PM EST us Elsa Juarez MD LAB BLOOD ORDERABLES Final Resul t Performing Organization Address [facility] Co de Phone Number [facility] [address] [place] [phone] * (ABNORMAL) Hemoglobin A1c (12/23/2024 2:54 PM EST) Hemoglobin A1c 6.7(H) <6.0 % [facility] Comment:Hemoglobin A1C Refer ence Range Adults: 4.8 - 6.0 % Non diabetic: < 6.0 % Goal: < 7.0 %Additional Action Suggested: > 8.0 %Note: Hemoglobin A1c results are invalid for patients with abnormal amounts of HbF. Blood transfusions may impact the HbA1c concentration in the patient sample. Estimated Average Glucose 146 mg/dL [facility] Comment:eAG = Estimated ave rage glucose which is %A1C expressed asaverage glucose, using the formula of the V3K-XhyrhiiFfrfjnb Glucose study (ADAG), Diabetes Care, Vol.31,#8,Jun. 2007 Blood Venous blood specimen / Unknown 12/23/2024 2:54 PM EST 12/23/2024 4:13 PM EST us Elsa Juarez MD LAB BLOOD ORDERABLES Final Resul t [facility] [address] [place] [phone] * (ABNORMAL) Comprehensive Metabolic Panel (12/23/2024 2:54 PM EST) Sodium 140 135 - 145 mmol/L [facility] Potassium 3.9 3.3 - 5.1 mmol/L [facility] Chloride 102 96 - 108 mmol/L [facility] Carbon Dioxide 30(H) 22 - 29 mmol/L [facility] Anion Gap 12 12 - 20 [facility] Urea Nitrogen (BUN) 9 9 - 16 mg/dL [facility] Creatinine, Serum 0.96 0.5 - 1.4 mg/dL [facility] Estimated Glomerular Filt Rate 60 [facility] Comment:Chronic Kidney Disea se: Estimated GFR < 60 mL/min/1.55f3Azbygs Kidney Disease: Estimated GFR < 15 mL/min/1.73m2 Glucose 75 60 - 115 mg/dL [facility] Calcium 9.8 8.4 - 10.2 mg/dL [facility] Bilirubin, Total 0.6 0.0 - 1.0 mg/dL [facility] Aspartate Amino Transferase 18 5 - 31 U/L [facility] Alanine Aminotransferase 18 0 - 31 U/L [facility] Total Protein 7.7 6.5 - 8.0 g/dL [facility] Albumin Level 3.8 3.5 - 5.0 g/dL [facility] Alkaline Phosphatase 114 39 - 117 U/L [facility] Blood Venous blood specimen / Unknown 12/23/2024 2:54 PM EST 12/23/2024 4:13 PM EST us Elsa Juarez MD LAB BLOOD ORDERABLES Final Resul t [facility] [address] [place] [address] [phone] * US Abdomen Complete (10/17/2024 9:02 AM EST) Anatomical Region Laterality Modality Abdomen Ultrasound 10/17/2024 9:02 AM EST Narrative 11/16/2024 12:13 PM EST ? [facility] ?[address] ?[place] [address] ? Ultrasound Report ? Signed ? Patient: Marisol Avalosleonardokiran ? MR#: [id number] ? : 1965 ?Acct:[id number] ? Age/Sex: 59 / F ?ADM Date: 10/17/24 ? Loc: HO.US ? Attending Dr: Ramandeep Sandhu PA-C ? Ordering Physician: Ramandeep Sandhu PA-C ?? Date of Service: 10/17/24 ?? Procedure(s): US abdomen complete ?? Accession Number(s): [id number] ? cc: Ramandeep Sandhu PA-C; Elsa Juarez [...] PSA communication system ? 11/16/2024 11:10 AM CAR SWEEPER ? Electronically signed by: ??Wilson Blanca MD ??11/16/2024 12:10 PM EST ?? RP ? Dictated By: ?Wilson Blanca MD ? Signed By: ?<Electronically signed by Wilson Blanca MD in OV> ?11/16/24 1210 ? DD/ 0902 ? TD/TT: 10/17/24 0935 ? Turning Machine Set Up Operator: HS ? Procedure Note Leo Chang - 11/16/2024 [place] [address] Ultrasound Report Signed Patient: Lakshmi Avalos MR#: [id number] : 1965Acct:[id number] Age/Sex: 59 / FADM Date: 10/17/24 Loc: HO.US Attending Dr: Ramandeep Sandhu PA-C Ordering Physician: Ramandeep Sandhu PA-C Date of Service: 10/17/24 Procedure(s): US abdomen complete Accession Number(s): [id number] cc: Ramandeep Sandhu PA-C; Elsa Juarez MD [...] of the above critical findings and recommendations.) [employer] communication system 11/16/2024 11:10 AM CAR SWEEPER Electronically signed by: Wilson Blanca MD 11/16/2024 12:10 PM EST RP Dictated By: Wilson Blanca MD Signed By: <Electronically signed by Wilson Blanca MD in OV> 11/16/24 1210 DD/ 0902 TD/TT: 10/17/24 0935 Turning Machine Set Up Operator: HS [facility] External Provider IMG PROCEDURES Edited Result - Final * BI Mammogram Screening Tomosynthesis Bilateral (03/06/2024 2:35 PM EDT) Anatomical Region Laterality Modality Breast Bilateral Mammography 03/06/2024 2:35 PM EDT Narrative 04/03/2024 10:00 PM EDT ? [facility] ? [address] ?[place] [address] ? Mammography Report ? Signed ? Patient: Thiago Das,Lakshmi ? MR#: [id number] ? : 1965 ?Acct:[id number] ? Age/Sex: 58 / F ?ADM Date: 04//24 ? Loc: HO.MAMMO ? Attending Dr: Elsa Juarez MD ? Ordering Physician: Elsa Juarez MD ?Results: 1Negative ? Date of Service: 03/06/ ?Follow Up: 1 Year From Orig ?? inal Mammogram ? Procedure(s): MM tomosynthesis screening BI ?? Accession Number(s): [id number] ? cc: Elsa Juarez MD ? EXAMINATION: [...] by Heike Ashley MD in OV> ? 04/03/24 2157 ? DD/ 1435 ? TD/TT: ? Turning Machine Set Up Operator: ? Procedure Note Bernardo, Leo - 04/03/2024 [facility] [address] [place] [address] Dr. [place], [place] [address] Mammography Report Signed Patient: Lakshmi Avalos MR#: [id number] : 1965Acct:[id number] Age/Sex: 58 / FADM Date: 03/06/24 Loc: HO.MAMMO Attending Dr: Elsa Juarez MD Ordering Physician: Elsa Juarez MDResults: 1Negative Date of Service: 03/06/24Follow Up: 1 Year From Orig ina Mammogram Procedure(s): MM tomosynthesis screening BI Accession Number(s): [id number] cc: Elsa Juarez MD EXAMINATION: MM SCREENING DIGITAL BREAST TOMOSYNTHESIS, BILATERAL CLINICAL INFORMATION: Screening. Asymptomatic. COMPARISON: Mammography: This study is compared with prior exams dating back to 2015. TECHNIQUE: Digital breast tomosynthesis is performed in [...] MD in OV> 04/03/247 DD/ 1435 TD/TT: Turning Machine Set Up Operator: Elsa Juarez MD [facility] PROCEDURES Edited Result - Final * (ABNORMAL) Lipid Panel with Reflex to Direct LDL (04/04/2023 1:59 PM EDT) Cholesterol, Total 181 <200 mg/dL [facility] HDL Cholesterol 61 > OR = 50 mg/dL [employer] [facility] Triglycerides 223(H) <150 mg/dL [employer] [facility] Comment: If a non-fasting specimen was collected, consider repeat triglyceride testing on a fasting specimen if clinically indicated. Ange et al. J. of Clin. Lipidol. 2015;9:129-169. LDL Cholesterol 89 mg/dL (calc) [employer] Comment: Reference range: <100 Desirable range <100 mg/dL for primary prevention; ?? <70 mg/dL for patients with CHD or diabetic patients with > or = 2 CHD risk factors. LDL-C is now calculated using the Nikunj calculation, which is a validated novel method providing better accuracy than the Friedewald equation in the estimation of LDL-C. Mervin SS et al. DISHA. 2013;310(19): 8538-0470 (http://education.Outernet/faq/JNP963) Chol/HDLC Ratio 3.0 <5.0 (calc) [employer] Non-HDL Cholesterol 120 <130 mg/dL (calc) [employer] Comment: For patients with diabetes plus 1 major ASCVD risk factor, treating to a non-HDL-C goal of <100 mg/dL (LDL-C of <70 mg/dL) is considered a therapeutic option. 04/04/2023 1:59 PM EDT 04/04/2023 2:00 PM EDT Narrative [facility] - 04/05/2023 9:16 AM EDT FASTING:NO FASTING: NO Elsa Juarez MD LAB BLOOD ORDERABLES Final Resul t [facility] [address], [place] [address] [employer] [facility] [address] [place] [address] * HEPATITIS C AB W/REFL TO HCV RNA, QN, PCR (03/30/2021 9:31 AM EDT) HEPATITIS C ANTIBODY NON-REACT ANA NON-REACT ANA [facility] INDEX 0.01 <1.00 [facility] Comment: ?? HCV antibody was non-reactive. There is no laboratory ?? evidence of HCV infection. ?? In most cases, no further action is required. However, if recent HCV exposure is suspected, a test for HCV RNA (test code 73944) is suggested. ?? For additional information please refer to http://education.Osteogenix/faq/QLY95h5 (This link is being provided for informational/ educational purposes only.) ?? 03/30/2021 9:31 AM EDT Elsa Juarez MD HISTORICAL/NON ORDERABLE LABS Fi nal Result Performing Organization Address [facility] de Phone Number [facility] [address] * HIV 1/2 ANTIGEN/ANTIBODY,FOURTH GENERATION W/RFL (03/30/2021 9:31 AM EDT) HIV-1/2 ANTIGEN AND ANTIBODIES, 4TH GENERATION W/ REFLEX NON-REACT ANA NON-REACT ANA [facility] Comment: HIV-1 antigen [...] ? For additional information please refer to http://education.Osteogenix/faq/UNM513 (This link is being provided for informational/ educational purposes only.) ? The performance of this assay has not been clinically validated in patients less than 2 years old. ?? 03/30/2021 9:31 AM EDT Elsa Juarez MD LAB BLOOD ORDERABLES Final Resul t Performing Organization Address [facility] de Phone Number [facility] [address] from Last 3 Months or Most Recently Relevant to Health Maintenance Insurance [facility] C3 HSN FULL Care Teams Third Cook Relationship Specialty Start Date End Date Elsa Juarez MD [address] [place] [address] PCP - General Family Medicine 04/04/19 Kath White Assignment EditorFlare Man 03/06/24
--- OUTSIDE RECORDS SUMMARY | 2024-12-25 16:11 | XMS_ITS | Encounter Summary ---
Author Organization [employer] Address [address] [place] [address] Care Team Providers Care Clubhouse Attendant Name Role Phone Elsa Espitia MD Primary Care Provider [phone] Reason for Visit * Reason Comments Med Refill Encounter Details Date Type Department Care Team ([facility] st Contact Info) Description 12/10/2024 Refill [facility] [address] [place], [place] [phone] Elsa Espitia MD [address] [place], [place] [phone] Social History Tobacco Use Types Packs/Day Years [...] documented as of this encounter Care Teams Clubhouse Attendant Relationship Specialty Start Date End Date Elsa Espitia MD [address] [place] [address] PCP - General Family Medicine 04/04/19 Kath White Individual Pension AdviserDredge Deckhand 03/06/24 documented as of this encounter
--- OUTSIDE RECORDS SUMMARY | 2024-12-25 16:11 | XMS_ITS | Encounter Summary ---
Author Organization [facility] [facility] Address [address] [place] [address] Care Team Providers Care Java Lead Name Role Phone Elsa Espitia MD Primary Care Provider [phone] Reason for Visit * Reason Onset Date Comments Referral 06/15/2023 Encounter Details Date Type Department Care Team ([facility] st Contact Info) Description 06/15/2023 Telephone [facility] [address] [place], [place] [phone] Elsa Espitia MD [address] [place], [place] [phone] Referral Social History Tobacco Use Types Packs/Day [...] documented as of this encounter Care Teams Java Lead Relationship Specialty Start Date End Date Elsa Espitia MD [address] [place] [address] PCP - General Family Medicine 04/04/19 Kath White Fire Claims AdjusterLibrary Technology Instructor 03/06/24 documented as of this encounter
== END 2024-12-25 12:24 | disposition home or self-care (01) ==
LOC: HO.CT 12:23
PROVIDERS: PCP Family Medicine; Visit Provider Internal Medicine
DX: R59.0 Localized enlarged lymph nodes (principal)
CPT/HCPCS: 74177; Q9967

== ENCOUNTER → 2024-12-25 12:25 | Outpatient (BNV) | payer MEDICAID, SELFPAY | PROVIDERS: PCP Family Medicine; Visit Provider Radiology Diagnostic Radiology | DX: N26.1 Atrophy of kidney (terminal) (principal); R16.0 Hepatomegaly, not elsewhere classified | CPT/HCPCS: 74177 ==

== ENCOUNTER 2025-03-20 12:58 | Outpatient (AMB) | payer MEDICAID, SELFPAY ==
--- NOTE | 2025-03-20 13:05 | MHC.OFFVIS ---
Vital Signs 03/20/25 13:06 Height 5 ft 2 in Weight 143 lb 4.807 oz BMI 26.2 BP 102/70 Blood Pressure Location Lt brachial Position Sitting Pulse 85 Pulse Source Pulse Oximeter Pulse Oximetry (%) 97 Oxygen Delivery Method Room Air Intake Visit Reasons: Asthma Ambulatory Care Coordinator Required: Yes Ambulatory Care Coordinator Name: [id number] Allergies aspirin [Aspirin] Allergy (Intermediate, Verified 03/20/25 13:09) EYES SWELLING Penicillins Allergy (Intermediate, Verified 03/20/25 13:09) RASH citalopram Allergy (Unknown, Verified 03/20/25 13:09) chest pain Diltiazem HCl Allergy (Unknown, Uncoded 03/20/25 13:09) Unknown HPI HPI Asthma: Details: 59-year-old lady, former approximately 10 pack-year smoker, quit 2020, now followed for moderate to severe persistent asthma and environmental allergies. She continues on Breo, Incruse, albuterol MDI, and albuterol nebs with good baseline control of her symptoms. Patient had recent exacerbation treated with a course of prednisone. She also continues on Zyrtec and Flonase for underlying environmental allergies. [facility] Medical History Gallbladder polyp Elevated AFP Pleural effusion Tobacco dependence Bronchopneumonia Diabetes THANH (acute kidney injury) Acute respiratory failure with hypoxia Pneumonia Asthma with acute exacerbation Asthma On beta mariaelena at home Hx of renal calculi Right knee injury Acute anxiety Depression GERD (gastroesophageal reflux disease) HTN (hypertension) Diabetic acidosis, type II Arthritis Surgical History History of hysterectomy Hx of arthroscopy of right knee Hx of cystoscopy Family History Father No problems noted. Mother No problems noted. Other No family history of coronary artery disease Social History Household Members: None Housing: Apartment Alcohol intake: current Alcohol intake frequency: holidays/special occasions only Patient Tobacco Use Status: Former Tobacco user Years Smoked: 20 +/- Second Hand Smoke Exposure: No service: No Current occupational status: disabled Current occupation: right hand dominant Review of Systems Const Denies daytime sleepiness, Denies excessive sweating, Denies fatigue, Denies fever(s), Denies lethargy, Denies malaise, Denies night sweats, Denies snoring and Denies weight loss Eyes Denies blurry vision and Denies itchy eyes ENT Denies nasal congestion, Denies post nasal drip, Denies sinus pain, Denies sinus pressure and Denies other ( Thrush) Card Denies chest pain, Denies pedal edema, Denies dyspnea, Denies orthopnea and Denies paroxysmal nocturnal dyspnea Resp Denies cough, Denies hemoptysis, Denies excessive phlegm production, Denies dyspnea, Denies snoring and Denies wheezing GI Denies abdominal pain and Denies heartburn Musc Denies myalgias, Denies arthralgias and Denies joint swelling Skin/Breast Denies rash Neuro Denies memory loss and Denies seizure-like activity Psych Denies abnormal sleep pattern, Denies anxiety and Denies memory loss Endo Denies excessive sweating, Denies fatigue and Denies heat intolerance Rogelio/Lymph Denies easy bruising Aller/Immun Denies itchy eyes, Denies seasonal rhinorrhea and Denies wheezing Physical Exam Vital Signs: Last Vital Signs Pulse 85 03/20/25 13:06 BP 102/70 03/20/25 13:06 Pulse Ox 97 03/20/25 13:06 Oxygen Delivery Method Room Air 03/20/25 13:06 BMI result Body Mass Index 26.2 Const General: no acute distress and alert Nutritional Appearance: not obese Orientation/consciousness: Other orientation findings ( oriented) HEENT Head: Yes atraumatic Eyes General: appearance normal, both eyes and all related structures Sclerae: sclerae normal EOM: EOMs intact bilaterally Neck Neck: Yes supple Lymphatic: no lymphadenopathy noted Resp Effort & Inspection: normal respiratory effort and no use of accessory muscles Auscultation: clear to auscultation bilaterally Cardio Rate: regular rate Rhythm: regular rhythm Heart sounds: no gallops, no murmurs and no rubs Skin General skin exam: other ( warm) Extrem General: No clubbing, No cyanosis and No edema Assessment & Plan Assessment & Plan (1) Asthma: Code(s): J45.909 - Unspecified asthma, uncomplicated Category: Medical Plan: Well controlled on Incruse, Breo, albuterol MDI/nebs. Continue current regimen. (2) Environmental allergies: Code(s): Z91.09 - Other allergy status, other than to drugs and biological substances Category: Medical Plan: Well controlled on Zyrtec/Flonase. Continue current regimen. Coding Level of Care Code Est Pt Level 4 (02088) Diagnoses Asthma J45.909 Environmental allergies Z91.09
[2025-03-20 13:06] VITALS: BP 102/70; PULSE 85; O2SAT 97; BMI 26.2
--- OUTSIDE RECORDS SUMMARY | 2025-03-20 13:42 | XMS_ITS | Encounter Summary ---
Author Organization [employer] Address [address] [place] [address] Care Team Providers Care Icer Machine Name Role Phone Elsa Espitia MD Primary Care Provider [phone] Reason for Visit * Reason Onset Date Comments Medication Question 07/22/2024 Encounter Details Date Type Department Care Team ([facility] st Contact Info) Description 07/22/2024 Telephone [facility] MED[facility]INE [address] [place], [place] [phone] Elsa Espitia MD [address] [place], [place] [phone] Medication Question Social History Tobacco Use Types [...] EDT TC placed to pt with a [place] security systems administrator to inquire which prescription pt needs a refill on. Per pt, the insulin pen needle (Pentips) 32G X 4 mm is needed. Medication queued to PCP for review * Telephone Encounter - Angel Gallo - 07/22/2024 1:44 PM EDT Tc from pt requesting needles for checking blood sugar. If any questions you can contact pt at [phone]. (Japanese Speaker) documented in this encounter Plan of Treatment Upcoming Encounters Date Type Department Care Team (Late st Contact Info) Description 03/31/2025 1:00 PM EDT Office Visit [facility] [address] [place] [address] Elsa Espitia MD [address] [place] [address] documented as of this encounter Visit Diagnoses Not on filedocumented in this encounter Additional Health Concerns Assessment Noted Time PHQ-9 Depression Total Score: 0 06/01/20 23 10:46 AM EDT documented as of this encounter Care Teams Icer Machine Relationship Specialty Start Date End Date Elsa Espitia MD [address] [place] [address] PCP - General Family Medicine 04/04/19 Kath White Infant CaregiverFlare Stitcher 03/06/24 documented as of this encounter
--- OUTSIDE RECORDS SUMMARY | 2025-03-20 13:42 | XMS_ITS | Encounter Summary ---
Author Organization [employer] Address [address] [place] [address] Care Team Providers Care Senior Sql Server Database Developer Name Role Phone Elsa Espitia MD Primary Care Provider [phone] Reason for Visit * Reason Comments Med Refill Encounter Details Date Type Department Care Team ([facility] st Contact Info) Description 09/27/2023 Refill [facility] MEDICINE [address] [place], [place] [phone] Curt Carnes MD [address] [place] [address] Gastroesophageal reflux disease, unspecified whether esophagitis present Social History Tobacco Use Types Packs/Day Years Used Date Smoking Tobacco: Former Cigarettes Passive Smoke Exposure: Past Smokeless Tobacco: Never Depression Answer Date Recorded Patient Health Questionnaire-9 Score 0 06/01/2023 Housing Stability Answer Date Recorded What is your housing situation today? I have amy amarilys 09/26/[address] you li [...] as of this encounter Plan of Treatment Upcoming Encounters Date Type Department Care Team (Late st Contact Info) Description 03/31/2025 1:00 PM EDT Office Visit [facility] MEDICINE [address] [place] [address] Elsa Espitia MD [address] [place] [address] documented as of this encounter Visit Diagnoses Diagnosis Gastroesophageal reflux disease, unspecified whether esophagitis present documented in this encounter Additional Health Concerns Assessment Noted Time PHQ-9 Depression Total Score: 0 06/01/20 23 10:46 AM EDT documented as of this encounter Care Teams Senior Sql Server Database Developer Relationship Specialty Start Date End Date Elsa Espitia MD [address] [place] [address] PCP - General Family Medicine 04/04/19 Kath White Business SpecialistGeriatric Social Worker 03/06/24 documented as of this encounter
--- OUTSIDE RECORDS SUMMARY | 2025-03-20 13:42 | XMS_ITS | Encounter Summary ---
Author Organization [facility] Address [address] [place] [address] Care Team Providers Care Manager Wellness Name Role Phone Elsa Espitia MD Primary Care Provider [phone] Reason for Visit * Reason Onset Date Comments Referral 06/15/2023 Encounter Details Date Type Department Care Team ([facility] st Contact Info) Description 06/15/2023 Telephone [facility] MEDICINE [address] [place], [place] [phone] Elsa Espitia MD [address] [place], [place] [phone] Referral Social History Tobacco Use Types Packs/Day [...] Description 03/31/2025 1:00 PM EDT Office Visit [facility] MED[facility]INE [address] [place], [place] [phone] Elsa Espitia MD [address] [place], [place] [phone] documented as of this encounter Visit Diagnoses Not on filedocumented in this encounter Additional Health Concerns Assessment Noted Time PHQ-9 Depression Total Score: 0 06/01/20 23 10:46 AM EDT documented as of this encounter Care Teams Manager Wellness Relationship Specialty Start Date End Date Elsa Espitia MD [address] [place], [place] [phone] PCP - General Family Medicine 04/04/19 Kath White Sergeant At ArmsFood Production Manager 03/06/24 documented as of this encounter
--- OUTSIDE RECORDS SUMMARY | 2025-03-20 13:42 | XMS_ITS | Encounter Summary ---
Author Organization [employer] Address [address] [facility] [place] [address] Care Team Providers Care Medical Scientific Officer Name Role Phone Elsa Espitia MD Primary Care Provider [phone] Reason for Visit * Reason Onset Date Comments Med Refill 07/22/2024 Encounter Details Date Type Department Care Team ([facility] st Contact Info) Description 07/22/2024 Telephone [facility] MEDICINE [address] [place], [place] [phone] Elsa Espitia MD [address] [place], [place] [phone] Med Refill Social History Tobacco Use Types [...] 50 MG tablet To be sent to: [facility] Pharmacy documented in this encounter Plan of Treatment Upcoming Encounters Date Type Department Care Team (Late st Contact Info) Description 03/31/2025 1:00 PM EDT Office Visit [facility] MEDICINE [address] [place] [phone] Elsa Espitia MD [address] [place] [address] documented as of this encounter Visit Diagnoses Not on filedocumented in this encounter Additional Health Concerns Assessment Noted Time PHQ-9 Depression Total Score: 0 06/01/20 23 10:46 AM EDT documented as of this encounter Care Teams Medical Scientific Officer Relationship Specialty Start Date End Date Elsa Espitia MD [address] [place] [address] PCP - General Family Medicine 04/04/19 Kath White Animal TrapperDude Wrangler 03/06/24 documented as of this encounter
--- OUTSIDE RECORDS SUMMARY | 2025-03-20 13:42 | XMS_ITS | Encounter Summary ---
Author Organization [employer] Address [address] [place] [address] Care Team Providers Care Business Services Tech Name Role Phone Elsa Espitia MD Primary Care Provider [phone] Encounter Details Date Type Department Care Team (Late st Contact Info) Description 07/22/2024 Orders Only [facility] [address] [place], [place] [phone] Elsa Espitia MD [address] [place], [place] [phone] Social History Tobacco Use Types Packs/Day Years [...] the past 12 months, has t he [employer], [employer], oil or water bunkersofa threatened to shut off services in your [...] Description 03/31/2025 1:00 PM EDT Office Visit [facility] [address] [place] [address] Elsa Espitia MD [address] [place] [address] documented as of this encounter Visit Diagnoses Not on filedocumented in this encounter Additional Health Concerns Assessment Noted Time PHQ-9 Depression Total Score: 0 06/01/20 23 10:46 AM EDT documented as of this encounter Care Teams Business Services Tech Relationship Specialty Start Date End Date Elsa Espitia MD [address] [place] [address] PCP - General Family Medicine 04/04/19 Kath White Room Service WaiterConformal Pad Former 03/06/24 documented as of this encounter
--- OUTSIDE RECORDS SUMMARY | 2025-03-20 13:42 | XMS_ITS | Clinical Summary ---
Author Organization [facility] Facility Address [address] [address] Care Team Providers Care Quality Assurance Monitor Name Role Phone Elsa Espitia MD Primary Care Provider [phone] Social History Tobacco Use Types Packs/Day Years [...] (1 of 3 - 19+ 3-dose series) 08/21 Colorectal Cancer Screening: Annual FOBT 2015 Colorectal Cancer Screening: Colonoscopy 2015 Colorectal Cancer Screening: Sigmoidoscopy 2015 Pneumococcal Vaccine: 50+ Years (1 of 1 - PCV) 016 Influenza Vaccine (Season Ended) 2025 Insurance Medicaid [place] Care Teams Quality Assurance Monitor Relationship Specialty Start Date End Date Elsa Espitia MD PCP - General Family Medicine 03/20/22
--- OUTSIDE RECORDS SUMMARY | 2025-03-20 13:43 | XMS_ITS | Encounter Summary ---
Author Organization [employer] Address [address] [place] [address] Care Team Providers Care Head Refrigeration Engineer Name Role Phone Elsa Espitia MD Primary Care Provider [phone] Reason for Referral * Consultation (Routine) - Closed Specialty Diagnoses / Procedures Referred By Contac t Referred To Contact Behavioral Health Diagnoses Major depressive disorder, remission status unspecified, unspecified whether recurrent Anxiety Elsa Espitia MD [address] [place] [address] Phone: tel: fax: Referral ID Status Reason Start Date Expiration Date V isits Requested Visits Authorized [id number] Closed Specialty Services Required 02/12/2025 02/12/2026 1 1 Encounter Details Date Type Department Care Team (Late st Contact Info) Description 02/12/2025 Orders Only [facility] MEDICINE [address] [place] [address] [phone] Elsa Espitia MD [address] [place] [address] [phone] Major depressive disorder, remission status unspecified, unspecified whether recurrent (Primary Dx); Anxiety Social History Tobacco Use Types Packs/Day Years [...] Description 03/31/2025 1:00 PM EDT Office Visit [facility] MEDICINE [address] [place] [phone] Elsa Espitia MD [address] [place] [address] Scheduled Referrals Name Type Priority Associated Diagnoses Orde r Schedule Referral to Behavioral Health Outpatient Referral Routine Major depressive disorder, remission status unspecified, unspecified whether recurrent Anxiety Expected: 02/12/2025 (Approximate), Expires: 02/12/2026 documented as of this encounter Visit Diagnoses Diagnosis Major depressive disorder, remission status unspecified, unspecified whether recurrent- Primary Anxiety Anxiety state, unspecified documented in this encounter Additional Health Concerns Assessment Noted Time PHQ-9 Depression Total Score: 0 09/18/20 10:38 AM EDT documented as of this encounter Care Teams Head Refrigeration Engineer Relationship Specialty Start Date End Date Elsa Espitia MD [address] [place] [phone] PCP - General Family Medicine 04/04/19 Kath White Regulatory ManagerData Warehouse Administrator 03/06/24 documented as of this encounter
--- OUTSIDE RECORDS SUMMARY | 2025-03-20 13:43 | XMS_ITS | Encounter Summary ---
Author Organization [employer] Address [address] [place] [address] Care Team Providers Care Probate Paralegal Name Role Phone Elsa Espitia MD Primary Care Provider [phone] Reason for Visit * Reason Comments Med Refill Encounter Details Date Type Department Care Team ([facility] st Contact Info) Description 10/29/2024 Refill [facility] MEDICINE [address] [place], [place] [phone] Elsa Espitia MD [address] [place], [place] [phone] Chronic low back pain, unspecified back pain [...] Description 03/31/2025 1:00 PM EDT Office Visit [facility] [address] [place] [phone] Elsa Espitia MD [address] [place] [phone] documented as of this encounter Visit Diagnoses Diagnosis Chronic low back pain, unspecified back pain laterality, unspecified whether sciatica present documented in this encounter Additional Health Concerns Assessment Noted Time PHQ-9 Depression Total Score: 0 09/18/20 10:38 AM EDT documented as of this encounter Care Teams Probate Paralegal Relationship Specialty Start Date End Date Elsa Espitia MD [address] [place] [phone] PCP - General Family Medicine 04/04/19 Kath White Rougher Machine OperatorMake Ready Worker 03/06/24 documented as of this encounter
--- OUTSIDE RECORDS SUMMARY | 2025-03-20 13:43 | XMS_ITS | Clinical Summary ---
Author Organization [employer] Address [address] [place] [address] Care Team Providers Care Special Procedure Tech Name Role Phone Elsa Espitia MD Primary Care Provider [phone] Allergies Active Allergy Reactions Criticality Noted Date Comments Aspirin 06/23/2013 Citalopram 06/23/2013 Other reaction(s): Chest pain Diltiazem 06/23/2013 Iodinated Contrast Media Itching,Rash Low 5 Nsaids 06/23/2013 Penicillins 06/23/2013 Medications * This [...] BLOOD SUGAR TWICE DAILY 100 strip 11 023 Active insulin pen needle (Pentips) 32G x 4 mm misc USE DAILY WITH INSULIN 100 each 3 024 Active Breo Ellipta 200-25 MCG/ACT aerosol powder TAKE 1 PUFF BY MOUTH EVERY DAY FOR 30 DAYS Active Incruse Ellipta 62.5 MCG/ACT aerosol powder TAKE 1 PUFF BY MOUTH EVERY DAY Active gabapentin (Neurontin) 300 MG capsule TAKE 1 CAPSULE BY MOUTH AT BEDTIME. MAY INCREASE TO 2 CAPSULES AT BEDTIME AFTER DE 1 WEEK 60 capsule 11 Active cyanocobalamin (Vitamin B-12) 1000 MCG tablet TAKE 1 TABLET BY MOUTH EVERY MORNING 90 tablet 3 Active metoprolol tartrate (Lopressor) 50 MG tablet TAKE 1 TABLET BY MOUTH TWICE DAILY IN THE MORNING AND IN THE EVENING WITH MEALS 180 tablet 3 Active lisinopril 2.5 MG tablet TAKE 1 TABLET BY MOUTH EVERY MORNING 90 tablet 3 Active FeroSul 325 (65 Fe) MG tablet TAKE 1 TABLET BY MOUTH TWICE DAILY IN THE MORNING AND IN THE EVENING WITH ORANGE JUICE 180 tablet 3 Active cloNIDine (Catapres) 0.1 MG tablet TAKE 1 TABLET BY MOUTH AT BEDTIME 90 tablet 3 Active atorvastatin (Lipitor) 20 MG tablet TAKE 1 TABLET BY MOUTH AT BEDTIME 90 tablet 3 Active Oyster Shell Calcium 500 MG tabletIndicatio ns:Other specified personal risk factors, not elsewhere classified TAKE 1 TABLET BY MOUTH TWICE DAILY IN THE MORNING AND IN THE EVENING 180 tablet 2 Active albuterol (2.5 MG/3ML) 0.083% nebulizer solution INHALE 1 AMPULE USING A NEBULIZER THREE TIMES DAILY 90 mL 1 Active ergocalciferol (Vitamin D2) 1.25 MG (33603 UT) capsuleIndicati ons:Vitamin D deficiency TAKE 1 CAPSULE BY MOUTH ONCE WEEKLY ON SUNDAY MORNING 12 capsule 1 Active Continuous Glucose Tariff Counsel (FreeStyle Teja 2 [place]well) device Scan sensor every 8 hours 1 each Active Continuous Glucose Sensor (FreeStyle Teja 2 Sensor) misc Apply 1 sensor every 14 days 2 each Active glucose blood (FreeStyle Precision Joaquim Test) test strip Use to test blood sugar 3 times daily and as needed 100 each 024 2024 Active omeprazole (PriLOSEC) [address] capsule TAKE 1 CAPSULE BY MOUTH EVERY MORNING BEFORE BREAKFAST DO NOT BREAK, CRUSH, DISSOLVE OR CHEW 90 capsule 3 024 Active Lantus SoloStar 100 UNIT/ML pen INJECT 18 UNITS SUBCUTANEOUSLY EVERY EVENING DIRECTED 15 mL 11 025 Active Trulicity 0.75 MG/0.5ML solution auto-injectorIn dications:Type 2 diabetes mellitus with other specified complication, with long-term current use of insulin (CMS/[facility]) INJECT ONE PEN (=0.75MG) SUBCUTANEOUSLY ONCE A WEEK DIRECTED 2 mL 025 Active TRUEplus Lancets 33G [facility] TEST BLOOD SUGAR TWICE A DAY 100 each 025 Active metFORMIN XR (Glucophage-XR) 500 MG [...] 8 (eight) hours. 30 tablet 025 Active predniSONE (Deltasone) 20 MG tabletIndicatio ns:Allergic reaction, subsequent encounter 2 tabs po daily for 5 days 10 tablet 025 Active sertraline (Zoloft) 100 MG tabletIndicatio ns:Depression, unspecified depression type TAKE 1 TABLET BY MOUTH AT BEDTIME 90 tablet 3 025 Active sucralfate (Carafate) 1 g tabletIndicatio ns:Gastroesopha geal reflux disease, unspecified whether esophagitis present TAKE 1 TABLET BY MOUTH FOUR TIMES DAILY ON AN EMPTY STOMACH BEFORE MEALS AND AT BEDTIME 120 tablet 3 025 Active melatonin 3 MG tablet TAKE 1 TO 2 TABLETS BY MOUTH 2 HOURS BEFORE BEDTIME NEEDED FOR SLEEP 60 tablet 3 025 Active famotidine (Pepcid) 20 MG tablet TAKE 1 TABLET BY MOUTH AT BEDTIME 90 tablet 3 025 Active diphenhydrAMINE (Dacia-Dryl) 25 MG tabletIndicatio ns:Allergic reaction, subsequent encounter TAKE 1 OR 2 TABLETS BY MOUTH AT BEDTIME IF NEEDED FOR ITCHING OR FOR ALLERGIES 60 tablet 025 Active hydrOXYzine pamoate (Vistaril) 25 MG capsule TAKE 1 CAPSULE BY MOUTH AT BEDTIME 30 capsule 025 Active traZODone (Desyrel) 50 MG tablet TAKE 1 TABLET BY MOUTH AT BEDTIME 30 tablet 025 Active Farxiga 10 MG TAKE 1 TABLET BY MOUTH EVERY MORNING 90 tablet 025 Active amitriptyline (Elavil) 50 MG tabletIndicatio ns:Depression, unspecified depression type,Insomnia, unspecified type,Chronic pain due to trauma TAKE 1 TABLET BY MOUTH AT BEDTIME 30 tablet 025 Active hydrOXYzine pamoate (Vistaril) 25 MG capsule TAKE 1 CAPSULE BY MOUTH AT BEDTIME 90 capsule 2024 Discontinued(R eorder (will not trigger notification to Pharmacy)) Farxiga 10 MG TAKE 1 TABLET BY MOUTH EVERY MORNING 90 tablet 024 2024 Discontinued traZODone (Desyrel) 50 MG tablet TAKE 1 TABLET BY MOUTH AT BEDTIME 90 tablet 024 2024 Discontinued(R eorder (will not trigger notification to Pharmacy)) amitriptyline (Elavil) 50 MG tabletIndicatio ns:Depression, unspecified depression type,Insomnia, unspecified type,Chronic pain due to trauma TAKE 1 TABLET BY MOUTH AT BEDTIME 90 tablet 024 2024 Discontinued diphenhydrAMINE (BENADryl) 25 MG tabletIndicatio ns:Allergic reaction, subsequent encounter Take 1-2 tablets (25-50 mg) by mouth if needed at bedtime (itching or allergies). 60 tablet 1 025 2024 Discontinued Active Problems Problem Noted Date Diagnosed Date Chronic liver disease 12/29/2024 Assessment & Plan (12/29/2024 11:02 PM EST): - following with [facility] - hepatomegaly noted on US - likely MASLD - work on healthy diet - upcoming appointment for CT scan Intra-abdominal lymphadenopathy 12/29/2024 Assessment & Plan (12/29/2024 11:03 PM EST): - incidental finding on US - scheduled for CT scan Nocturnal hypoxemia 02/08/2024 Assessment & Plan (12/25/2024 11:07 PM EST): - 08/14/23 Sleep study was negative for MELANY, but patient had nocturnal hypoxemia and 1L oxygen via NC was given - patient is prescribed supplemental oxygen at nighttime Assessment & Plan (09/18/2024 12:29 PM EDT): [...] & Plan (09/18/2024 12:31 PM EDT): -current [facility] provider: [facility] -current medications: clonidine; hydroxyzine; sertraline; amitriptyline -will add trazodone 50mg at bed time for insomnia -hydroxyzine was decreased due to prolonged QT -she was able to contract her safety today Assessment & Plan (02/08/2024 5:53 PM EDT): -current [facility] provider: [facility] -current medications: clonidine; hydroxyzine; sertraline; amitriptyline -hydroxyzine was decreased due to prolonged QT -she was able to contract her safety today Assessment & Plan (07/21/2023 7:09 AM EDT): -current [facility] provider: [facility] -current medications: clonidine; hydroxyzine; sertraline; amitriptyline -hydroxyzine was decreased due to prolonged QT -she was able to contract her safety today Assessment & Plan (04/05/2023 6:21 PM EDT): -current [facility] provider: [facility] -current medications: clonidine; hydroxyzine; sertraline; amitriptyline -incease amitriptyline to 50 mg qhs for insomnia -she was able to contract her safety today Chronic pain of right knee 04/05/2023 Assessment & Plan (12/29/2024 11:03 PM EST): -s/p right knee arthroscopy and partial lateral meniscectomy [place] [address] Cole -Seen by [facility] ortho in Aug 2019 -Waiting for hyaluronate derivative injection -Limited analgesic options due to ASA allergy and Hx substance use d/o -Continue APAP prn -Judicious use of tramadol -seen by [facility] in Jul 2021, pt is expected to have total knee replacement of right knee Assessment & Plan (09/18/2024 12:30 PM EDT): -s/p right knee arthroscopy and partial lateral meniscectomy [place] [address] Cole -Seen by [facility] ortho in Aug 2019 -Waiting for hyaluronate [...] Nov [address] Cole -Seen by [facility] in Aug 2019 -Waiting for hyaluronate [...] Nov [address] Cole -Seen by [facility] ortho in Aug 2019 -Waiting for hyaluronate [...] Nov [address] Cole -Seen by [facility] ortho in Aug 2019 -Waiting for hyaluronate derivative injection -Limited analgesic options due to ASA allergy and Hx substance use d/o -Continue APAP prn -Judicious use of tramadol -seen by [facility] in Jul 2021, pt is expected to have total knee replacement of right knee Type 2 diabetes mellitus wit h kidney complication, with long-term current use of insulin 04/05/2023 Assessment & Plan (12/29/2024 11:07 PM EST): - A1C 7.0% on 12/23/24 - Continue Metformin 500 mg bid with [...] on lifestyle modifications - Last eye exam: 10/27/24 no diabetic retinopathy - Last foot exam: 12/23/24 tinea pedis -Last microalbumin test: 04/04/23 UACR nml. -Last Lipid profile: 04/04/23 TC 181; TG 223; HDL 61; LDL 89 Assessment & Plan (09/18/2024 1:48 PM EDT): [...] kidney disease (CKD) 04/05/2023 Assessment & Plan (12/29/2024 10:59 PM EST): - avoid nephrotoxic drugs - renal dose medications Assessment & Plan (09/18/2024 12:29 PM EDT): [...] tunnel release surgery; patient was seen for tissue inserter for clearance. Patient states she has not [...] Asthma with COPD 02/20/2023 Assessment & Plan (12/29/2024 11:00 PM EST): Pt is following w/ feather boner, last seen on 11/18/23. -Last exacerbation in February 2022, acute respiratory failure with pneumonia, hospitalized in [facility] -Maintenance medication: fluticasone furonate / vilanterol (Breo) and umeclidinium (Incruse) -Treatment Hx: Previously Alvesco and budesonide / formoterol (Symbicort) -Rescue medication: albuterol HFA and nebulizer -Congratulated on smoking cessation effort, encourage to continue Assessment & Plan (09/18/2024 12:28 PM EDT): Pt is following w/ feather boner, last seen on 11/18/23. -Last exacerbation in February 2022, acute respiratory failure with pneumonia, hospitalized in [facility] -Maintenance medication: fluticasone furonate / vilanterol (Breo) and umeclidinium (Incruse) -Treatment Hx: Previously Alvesco and budesonide / formoterol (Symbicort) -Rescue medication: albuterol HFA and nebulizer -Congratulated on smoking cessation effort, encourage to continue Assessment & Plan (02/08/2024 5:58 PM EDT): Pt is following w/ feather boner, last seen on 11/18/23. -Last exacerbation in February 2022, acute respiratory failure with pneumonia, hospitalized in [facility] -Maintenance medication: fluticasone furonate / vilanterol (Breo) and umeclidinium (Incruse) -Treatment Hx: Previously Alvesco and budesonide / formoterol (Symbicort) -Rescue medication: albuterol HFA and nebulizer -Congratulated on smoking cessation effort, encourage to continue Assessment & Plan (07/21/2023 6:58 AM EDT): Pt is following w/ feather boner, last seen on 05/25/22. -Last exacerbation in February 2022, acute respiratory failure with pneumonia, hospitalized in [facility] -Maintenance medication: Symbicort -Treatment Hx: Previously Alvesco -Rescue medication: albuterol HFA and nebulizer -Congratulated on smoking cessation effort, encourage to continue Assessment & Plan (04/05/2023 6:11 PM EDT): Pt is following w/ feather boner, last seen on 05/25/22. -Last exacerbation in February 2022, acute respiratory failure with pneumonia, hospitalized in [facility] -Maintenance medication: Previously Alvesco, but she has not had one for a while. Start Symbicort. -Rescue medication: albuterol HFA and nebulizer -Congratulated on smoking cessation effort, encourage to continue Assessment & Plan (02/20/2023 5:31 AM EDT): Pt is following w/ feather boner, last seen on 05/25/22. -Last exacerbation in February 2022, acute respiratory failure with pneumonia, hospitalized in [facility] -Maintenance medication: Symbicort -Rescue medication: albuterol HFA [...] recurrence Essential hypertension 09/06/2015 Assessment & Plan (12/25/2024 11:07 PM EST): -Goal BP < 140/90 per JNC-8, < [...] if any problem arises Assessment & Plan (09/18/2024 12:29 PM EDT): [...] Chronic back pain 07/17/2012 Assessment & Plan (12/25/2024 11:07 PM EST): -mainly right side, history of kidney stone, [...] - Evaluated by both pain management and cardiovascular specialist, recommending injection treatment which patient no longer desires. - Currently prescribed lidocaine patch, gabapentin (for both chronic pain of knee, carpal tunnel syndrome, and chronic back pain), and tramadol. - Reviewed judicious use of medications. -Referred to a cardiovascular specialist; consider referring her to cutter in - Patient declined injection treatment referral again and agreed to be referred to PT. Assessment & Plan (09/21/2024 5:21 AM EDT): >>ASSESSMENT AND PLAN FOR CHRONIC LOW BACK PAIN WRITTEN ON 02/20/2023 5:36 AM BY ELSA ESPITIA MD - 09/29/22 X-ray of LS spine [...] WRITTEN ON 04/05/2023 6:14 PM BY ELSA ESPITIA MD Pt had car accidnet in 2003, [...] - Rx Lidoderm Patch -Referred to a cardiovascular specialist in Sep 2022 Assessment & Plan (09/21/2024 5:21 AM EDT): >>ASSESSMENT AND PLAN FOR CHRONIC LOW BACK PAIN WRITTEN ON 02/08/2024 5:53 PM BY ELSA ESPITIA MD Pt had car accidnet in 2003, [...] - Rx Lidoderm Patch -Referred to a cardiovascular specialist; consider referring her to cutter in Assessment & Plan (09/21/2024 5:28 AM EDT): [...] - Evaluated by both pain management and cardiovascular specialist, recommending injection treatment which patient no longer desires. - Currently prescribed lidocaine patch, gabapentin (for both chronic pain of knee, carpal tunnel syndrome, and chronic back pain), and tramadol. - Reviewed judicious use of medications. -Referred to a cardiovascular specialist; consider referring her to cutter in - Patient declined injection treatment referral again and agreed to be referred to PT. Diabetes mellitus, type 2 07/17/2012 Assessment & Plan (12/29/2024 11:07 PM EST): - A1C 7.0% on 12/23/24 - Continue Metformin 500 mg bid with [...] on lifestyle modifications - Last eye exam: 10/27/24 no diabetic retinopathy - Last foot exam: 12/23/24 tinea pedis -Last microalbumin test: 04/04/23 UACR nml. -Last Lipid profile: 04/04/23 TC 181; TG 223; HDL 61; LDL 89 Assessment & Plan (09/18/2024 12:33 PM EDT): [...] Nov [address] Cole -Seen by [facility] ortho in Aug 2019 -Waiting for hyaluronate [...] w QTC prolongation( hydroxyzine) -referred today to tissue inserter to further eval QTC prolongation -I called today her previous tissue inserter who was not concern w prolongation for surgery but last eval pt 2 years ago -I would rather have a new evaluation to confirm there are no cardiac risk associated for this nor urgent surgery.-requested referral to diabetes specialist to be done as soon as [...] or persists Cannabis abuse 07/17/2012 02/20/2023 Encounters * This document contains information received from the source organization and may not represent a complete record from that organization. Date Type Department Care Team Description 03/12/2025 Refill [facility] [address] [place] [address] Natalie Flores MD Depression, unspecified depression type; Insomnia, unspecified type; Chronic pain due to trauma 03/04/2025 Refill [facility] [address], [place] [phone] Natalie Flores MD 03/04/2025 Refill [facility] [address] [place] [address] Nadja Shaffer, KALINA Allergic reaction, subsequent encounter 02/12/2025 Orders Only [facility] [address] [place] [address] Elsa Espitia MD Major depressive disorder, remission status unspecified, unspecified whether recurrent (Primary Dx); Anxiety 02/11/2025 Telephone [facility] [address] [facility] [place] [phone] Elsa Espitia MD Behavioral Health Request 02/09/2025 Refill [facility] [address] [place] [address] Elsa Espitia MD 02/06/2025 Population Health Risk Score [facility] ([facility] Department [address] [place] [phone] Provider, Population Health Generic 01/11/2025 Refill [facility] [address] [place] [address] Elsa Espitia MD Depression, unspecified depression type; Gastroesophageal reflux disease, unspecified whether esophagitis present 12/31/2024 6:20 PM EST Office Visit [facility] [address] [place] [phone] Nadja Shaffer FNP Allergic reaction, subsequent encounter (Primary Dx) 12/31/2024 Telephone [facility] [address] [place] [phone] Elsa Espitia MD Nurse Triage 12/26/[address] [phone] Katie Romero, structural analyst Orders 12/25/2024 Orders Only [facility] External Provider, [facility] 12/23/2024 3:15 PM EST Office Visit [facility] [address] [place] [phone] Elsa Espitia MD Asthma with COPD ([facility]/HCC) (Primary Dx); Nocturnal hypoxemia; Essential hypertension; Type 2 diabetes mellitus with stage 3b chronic kidney disease, with long-term current use of insulin ([facility]/HCC); Type 2 diabetes mellitus with stage 3 chronic kidney disease, with long-term current use of insulin, unspecified whether stage 3a or 3b CKD ([facility]/HCC); Chronic low back pain, unspecified back pain laterality, unspecified whether sciatica present; Stage 3a chronic kidney disease ([facility]/HCC); Chronic liver disease; Intra-abdominal lymphadenopathy; Chronic pain of right knee; Osteoarthritis of both knees, unspecified osteoarthritis type; Dietary counseling; Exercise counseling; Overweight 12/23/2024 Travel from Last 3 Months Immunizations Name Administration [...] Sign Reading Time Taken Comments Blood Pressure 143/91 12/31/2024 6:46 PM EST Pulse 80 12/31/2024 6:46 PM EST Temperature 36.8 ??C (98.2 ??F) 12/31/2024 6:46 PM ES T Respiratory Rate 20 12/31/2024 6:46 PM EST Oxygen Saturation 99% 12/31/2024 6:46 PM EST Inhaled Oxygen Concentration - - Weight 65.6 kg (144 lb 9.6 oz) 12/31/2024 6:46 P M EST Height 152.4 cm (5') 12/31/2024 6:46 PM EST Body Mass Index 28.24 12/31/2024 6:46 PM EST Plan of Treatment Upcoming Encounters Date Type Department Care Team (Late st Contact Info) Description 03/31/2025 1:00 PM EDT Office Visit [facility] [address] [place] [phone] Elsa Espitia MD [address] [place] [address] Health Maintenance Due Date Last Done Comments CT Colonography 1966 Colonoscopy 1966 Colorectal Cancer Screening 1966 FIT DNA/Cologuard 1966 FIT 1966 FOBT 1966 Sigmoidoscopy 1966 Pap Smear 1987 HPV/Cotest 1996 Hepatitis A Vaccines (2 of 3 - Hep A Twinrix risk 3-dose series) 06/14/2016 05/17/2016 COVID-19 Vaccine ( season) 2024 12/16/2021, 06/14/2021, 05/23/2021 Diabetes: Hemoglobin A1C 03/23/2025 025, 12/23/2024, 09/18/2024, Additional history exists Alcohol/Substance Use Screening 09/18/2025 09/18/2024 Depression Screening 09/18/2025 09/18/2024, 09/18/20 SDOH Screening 09/18/2025 09/18/2024 Diabetes: Foot Exam 12/23/2025 12/23/2024, 10/17/2023, 10/17/2023, Additional history exists Lipid Panel 12/23/2025 12/23/2024, 03/26, 06/27/2022, Additional history exists Tobacco Screening 12/31/2025 12/31/2024 Mammogram 03/06/2026 03/06/2024, 0607/2022, 05/03/2021 DTaP/Tdap/Td Vaccines (3 - Td or Tdap) 05/17/2026 05/17/2016, 09/25/2012, 08/11/2009 Eye Exam 10/27/2026 10/27/2024, 12/2023, 10/27/2024, Additional history exists RSV Patients [...] whether stage 3a or 3b CKD (CMS/HCC) LIPID PANEL WITH REFLEX TO DIRECT LDL Routine 12/23/2024 2:54 PM EST Type 2 [...] whether stage 3a or 3b CKD (CMS/HCC) BI MAMMOGRAM SCREENING TOMOSYNTHESIS BILATERAL Routine 03/06/2024 2:35 PM EDT Breast cancer screening by mammogram ZZZ HISTORICAL HEPATITIS C AB W/REFL TO [...] EST Narrative 12/25/2024 1:53 PM EST ? [facility] ?[address] ?[place] [address] ? CT Scan Report ? Signed ? Patient: Thiago Das,Lakshmi ? MR#: [id number] ? : 1965 ?Acct:[id number] ? Age/Sex: 59 / F ?ADM Date: /30/25 ? Loc: HO.CT ? Attending Dr: Nubia Mtz MD ? Ordering Physician: Nubia Mtz MD ?? Date of Service: 12/25/24 ?? Procedure(s): CT abdomen pelvis w IV con ?? Accession Number(s): [id number] ? cc: Elsa Espitia MD; Nubia Mtz MD ? Report Number: ?? [id number]: Total DLP = ??258.00 mGy-cm ?? EXAMINATION: [...] signed by Medhat Felix MD in OV> ?12/25/24 1351 ? DD/ 1309 ? TD/TT: 12/25/24 1330 ? Refrigerated Company Driver: ? Procedure Note Bernardo, Image - 12/25/[address] [address] [address] Scan Report Signed Patient: Lakshmi Avalos MR#: [id number] : 1965Acct:[id number] Age/Sex: 59 / FADM Date: 12/25/24 Loc: HO.CT Attending Dr: Nubia Mtz MD Ordering Physician: Nubia Mtz MD Date of Service: 12/25/24 Procedure(s): CT abdomen pelvis w IV con Accession Number(s): [id number] cc: Elsa Espitia MD; Nubia Mtz MD Report Number: [id number]: Total DLP = 258.00 mGy-cm EXAMINATION: CT [...] 12/25/24 1351 DD/ 1309 TD/TT: 12/25/24 1330 Refrigerated Company Driver: [facility] External Provider IMG CT PROCEDURES Final Result [...] Media Lot # [id number] Lot# Expiration Date 025 Blood Capillary blood specimen / Unknown 12/23/2024 3:17 PM EST Elsa Espitia MD POINT OF CARE TEST ENTER/EDIT OR DERABLES Final Result * (ABNORMAL) Vitamin B12/Folate, Serum Panel (12/23/2024 2:54 PM EST) Vitamin B12 >2,000(H ) 200 - 900 pg/mL [facility] Comment:NORMAL 200-900 PG/ML INDETERMINATE 160-199 PG/ML DEFICIENT < 160 PG/ML Folate 8.5 > or = 4.0 ng/mL [facility] Comment:Reference Values:> o r = 4.0 ng/mL< 4.0 ng/mL suggests folate deficiency Methotrexate, aminopterin and folinic acid(leucovorin) are chemotherapeutic agents whose molecularstructures are similar to folate; therefore, the Architectfolate assay cannot be used for patients using these drugs. 12/23/2024 2:54 PM EST 12/23/2024 4:16 PM EST Elsa Espitia MD LAB BLOOD ORDERABLES Final Resul t Performing Organization Address [facility]/ZIP Co de Phone Number [facility] [address] [place] [phone] * TSH with Reflex to Free T4 (12/23/2024 2:54 PM EST) TSH reflex Free T4 1.15 0.32 - 4.0 uIU/mL [facility] Blood 12/23/2024 2:54 PM EST 12/23/2024 4:13 PM EST Elsa Espitia MD LAB BLOOD ORDERABLES Final Resul t Performing Organization Address City/[facility]/ZIP Co de Phone Number [facility] [address] [place] [phone] * (ABNORMAL) Lipid Panel with Reflex to Direct LDL (12/23/2024 2:54 PM EST) Triglycerides 263(H) <150 mg/dL [facility] Comment:Desirable Triglyceri de: less than 150 mg/dLBorderline High Triglyceride 150-199 mg/dLHigh Triglyceride: 200-499 mg/dLVery High Triglyceride: greater than or equal to 5OO mg/dL Cholesterol 174 <200 mg/dL [facility] Comment:Desirable Cholestero l: less than 200 mg/dLBorderline High Cholesterol: 200-239 mg/dLHigh Cholesterol: greater than 239 mg/dL LDL Cholesterol Calculated 79 <100 mg/dL [facility] Comment:Desirable LDL: less than 100 mg/dLNear Optimal/Above Optimal LDL: 110- 129 mg/dLBorderline High LDL: 130-159 mg/dLHigh LDL: 160-189 mg/dLVery High LDL: greater than or equal to 190 mg/dL HDL Cholesterol 43 >40 mg/dL [facility] Comment:Desirable HDL: great er than 40 mg/dL Note: This HDL assay may give artificially low results in patients with liver disease. Blood 12/23/2024 2:54 PM EST 12/26/2024 9:18 AM EST Elsa Espitia MD LAB BLOOD ORDERABLES Final Resul t Performing Organization Address City/[facility]/ZIP Co de Phone Number [facility] [address] [place] [phone] * Albumin, Random Urine W/Creatinine (12/23/2024 2:54 PM EST) Creatinine, Urine 95.12 mg/dL [facility] Microalbumin Urine <5.0 mg/L [facility] Microalbum Creatinine Ratio Ur TNP <30 ug/mg cr [facility] Comment:Unable to calculate albumin/creatinine ratio due to lowmicroalbumin or creatinine result. Urine 12/23/2024 2:54 PM EST 12/23/2024 4:00 PM EST Elsa Espitia MD LAB URINE ORDERABLES Final Resul t Performing Organization Address City/[facility]/ZIP Co de Phone Number [facility] [address] [place] [phone] * Lipase (12/23/2024 2:54 PM EST) Lipase 21 8 - 78 U/L [facility] Blood Venous blood specimen / Unknown 12/23/2024 2:54 PM EST 12/23/2024 4:13 PM EST Elsa Espitia MD LAB BLOOD ORDERABLES Final Resul t Performing Organization Address [facility]/ZIP Co de Phone Number [facility] [address] [place] [phone] * (ABNORMAL) Hemoglobin A1c (12/23/2024 2:54 PM EST) Hemoglobin A1c 6.7(H) <6.0 % [facility] Comment:Hemoglobin A1C Refer ence Range Adults: 4.8 - 6.0 % Non diabetic: < 6.0 % Goal: < 7.0 %Additional Action Suggested: > 8.0 %Note: Hemoglobin A1c results are invalid for patients with abnormal amounts of HbF. Blood transfusions may impact the HbA1c concentration in the patient sample. Estimated Average Glucose 146 mg/dL [facility] Comment:eAG = Estimated ave rage glucose which is %A1C expressed asaverage glucose, using the formula of the Q7V-UmjyyybYmoupnn Glucose study (ADAG), Diabetes Care, Vol.31,#8,Aug. 2007 Blood Venous blood specimen / Unknown 12/23/2024 2:54 PM EST 12/23/2024 4:13 PM EST Elsa Espitia MD LAB BLOOD ORDERABLES Final Resul t Performing Organization Address City/[facility]/ZIP Co de Phone Number [facility] [address] [place] [phone] * (ABNORMAL) Comprehensive Metabolic Panel (12/23/2024 2:54 PM EST) Sodium 140 135 - 145 mmol/L [facility] Potassium 3.9 3.3 - 5.1 mmol/L [facility] Chloride 102 96 - 108 mmol/L [facility] Carbon Dioxide 30(H) 22 - 29 mmol/L [facility] Anion Gap 12 12 - 20 [facility] Urea Nitrogen (BUN) 9 9 - 16 mg/dL [facility] Creatinine, Serum 0.96 0.5 - 1.4 mg/dL [facility] Estimated Glomerular Filt Rate 60 [facility] Comment:Chronic Kidney Disea se: Estimated GFR < 60 mL/min/[id number] Kidney Disease: Estimated GFR < 15 mL/min/1.73m2 Glucose 75 60 - 115 mg/dL [facility] Calcium 9.8 8.4 - 10.2 mg/dL [facility] Bilirubin, Total 0.6 0.0 - 1.0 mg/dL [facility] Aspartate Amino Transferase 18 5 - 31 U/L [facility] Alanine Aminotransferase 18 0 - 31 U/L [facility] Total Protein 7.7 6.5 - 8.0 g/dL [facility] Albumin Level 3.8 3.5 - 5.0 g/dL [facility] Alkaline Phosphatase 114 39 - 117 U/L [facility] Blood Venous blood specimen / Unknown 12/23/2024 2:54 PM EST 12/23/2024 4:13 PM EST us Elsa Espitia MD LAB BLOOD ORDERABLES Final Resul t [facility] [address] [place], [place] [phone] * BI Mammogram Screening Tomosynthesis Bilateral (03/06/2024 2:35 PM EDT) Anatomical Region Laterality Modality Breast Bilateral Mammography 03/06/2024 2:35 PM EDT Narrative 04/03/2024 10:00 PM EDT ? [facility] ? [address] ?[place] [address] ? Mammography Report ? Signed ? Patient: Robbie,Evangelia ? MR#: [id number] ? : 1965 ?Acct:[id number] ? Age/Sex: 58 / F ?ADM Date: 04/11/24 ? Loc: HO.MAMMO ? Attending Dr: Elsa Espitia MD ? Ordering Physician: Elsa Espitia MD ?Results: 1Negative ? Date of Service: 03/06/24 ?Follow Up: 1 Year From Orig ?? inal Mammogram ? Procedure(s): MM tomosynthesis screening BI ?? Accession Number(s): [id number] ? cc: Elsa Espitia MD ? EXAMINATION: ?? MM SCREENING DIGITAL [...] MD in OV> ? 04/03/242156 ? DD/ 1435 ? TD/TT: ? Refrigerated Company Driver: ? Procedure Note Donotlennyinterpreter, Image - 04/03/2024 [facility] [address] [place], [place] [address] Mammography Report Signed Patient: Lakshmi Avalos MR#: [id number] : 1965Acct:[id number] Age/Sex: 58 / FADM Date: 03/06/24 Loc: [facility] Attending Dr: Elsa Espitia MD Ordering Physician: Elsa Espitia MDResults: 1Negative Date of Service: 03/06/24Follow Up: 1 Year From Orig inal Mammogram Procedure(s): MM tomosynthesis screening BI Accession Number(s): [id number] cc: Elsa Espitia MD EXAMINATION: MM SCREENING DIGITAL BREAST TOMOSYNTHESIS, [...] MD Signed By: <Electronically signed by Heike Aslhey MD in OV> 04/03/24 2157 DD/ 1435 TD/TT: Refrigerated Company Driver: Elsa Espitia MD IMG BI PROCEDURES Edited Result - Final * HEPATITIS C AB W/REFL TO HCV RNA, QN, PCR (03/30/2021 9:31 AM EDT) HEPATITIS C ANTIBODY NON-REACT ANA NON-REACT [facility] INDEX 0.01 <1.00 [facility] Comment: ?? HCV antibody was non-reactive. There is no laboratory ?? evidence of HCV infection. ?? In most cases, no further action is required. However, if recent HCV exposure is suspected, a test for HCV RNA (test code 19761) is suggested. ?? For additional information please refer to http://education.CleanSlate/faq/QUB39a3 (This link is being provided for informational/ educational purposes only.) ?? 03/30/2021 9:31 AM EDT Elsa Espitia MD HISTORICAL/NON ORDERABLE LABS Fi nal Result [facility] [address] * HIV 1/2 ANTIGEN/ANTIBODY,FOURTH GENERATION W/RFL (03/30/2021 9:31 AM EDT) HIV-1/2 ANTIGEN AND ANTIBODIES, 4TH GENERATION W/ REFLEX NON-REACT ANA NON-REACT ANA [facility] Comment: HIV-1 antigen and HIV-1/HIV-2 [...] ? For additional information please refer to http://education.CleanSlate/faq/LOK834 (This link is being provided for informational/ educational purposes only.) ? The performance of this assay has not been clinically validated in patients less than 2 years old. ?? 03/30/2021 9:31 AM EDT us Elsa Espitia MD LAB BLOOD ORDERABLES Final Resul t [facility] from Last 3 Months or Most Recently Relevant to Health Maintenance Insurance [facility] C3 HSN FULL Care Teams Special Procedure Tech Relationship Specialty Start Date End Date Elsa Espitia MD [address] [place] [phone] PCP - General Family Medicine 04/04/19 Kath White Rice Dryer MechanicEmbedded Linux Developer 03/06/24
== END 2025-03-20 13:31 | disposition home or self-care (01) ==
LOC: HO.HPS 12:59
PROVIDERS: PCP Family Medicine; Visit Provider Internal Medicine Pulmonary Disease
DX: J45.909 Unspecified asthma, uncomplicated (principal); Z91.09 Other allergy status, other than to drugs and biological substances
CPT/HCPCS: 99214

== ENCOUNTER → 2025-03-20 12:58 | Outpatient (BNVA) | payer MEDICAID, SELFPAY | PROVIDERS: PCP Family Medicine; Visit Provider Internal Medicine Pulmonary Disease | DX: J45.909 Unspecified asthma, uncomplicated (principal); Z91.09 Other allergy status, other than to drugs and biological substances; Z87.891 Personal history of nicotine dependence | CPT/HCPCS: 99212 ==

== ENCOUNTER 2025-04-06 12:00 | Outpatient (REF) | payer MEDICAID, SELFPAY ==
--- OUTSIDE RECORDS SUMMARY | 2025-04-06 12:35 | XMS_ITS | Encounter Summary ---
Author Organization [employer] Address [address] [place] [address] Care Team Providers Care Manufacturing Laborer Name Role Phone Elsa Espitia MD Primary Care Provider [phone] Reason for Visit * Reason Onset Date Comments Medication Question 07/22/2024 Encounter Details Date Type Department Care Team ([facility] Contact Info) Description 07/22/2024 Telephone [facility] [address] [place], [place] [phone] Elsa Espitia MD [address] [place], [place] [phone] Medication Question Social History Tobacco Use Types [...] EDT TC placed to pt with a [place] spanish interpreter to inquire which prescription pt needs a refill on. Per pt, the insulin pen needle (Pentips) 32G X 4 mm is needed. Medication queued to PCP for review * Telephone Encounter - Angel Gallo - 07/22/2024 1:44 PM EDT Tc from pt requesting needles for checking blood sugar. If any questions you can contact pt at [phone]. (Welsh Speaker) documented in this encounter Plan of Treatment Not on file documented as of this encounter Visit Diagnoses Not on filedocumented in this encounter Additional Health Concerns Assessment Noted Time PHQ-9 Depression Total Score: 0 06/01/20 23 10:46 AM EDT documented as of this encounter Care Teams Manufacturing Laborer Relationship Specialty Start Date End Date Elsa Espitia MD [address] [place] [address] PCP - General Family Medicine 04/04/19 Kath White Upholstery RepairerSenior Sas Programmer 03/06/24 documented as of this encounter"
--- OUTSIDE RECORDS SUMMARY | 2025-04-06 12:35 | XMS_ITS | Encounter Summary ---
Author Organization [employer] Address [address] [place] [address] Care Team Providers Care White Washer Piler Name Role Phone Elsa Espitia MD Primary Care Provider Reason for Visit * Reason Onset Date Comments Referral 06/15/2023 Encounter Details Date Type Department Care Team ([facility] st Contact Info) Description 06/15/2023 Telephone [facility] MED[facility]INE [address] [place], [place] [phone] Elsa Espitia MD [address] [place], [place] [phone] Referral Social History Tobacco Use Types Packs/Day [...] documented as of this encounter Care Teams White Washer Piler Relationship Specialty Start Date End Date Elsa Espitia MD [address] [place] [address] PCP - General Family Medicine 04/04/19 Kath White Machine Feeder Raw StockBus Mechanic 03/06/24 documented as of this encounter
--- OUTSIDE RECORDS SUMMARY | 2025-04-06 12:35 | XMS_ITS | Encounter Summary ---
Author Organization [employer] Address [address] [facility] 7t [place] [address] Care Team Providers Care Agricultural Labor Camp Manager Name Role Phone Elsa Espitia MD Primary Care Provider [phone] Reason for Referral * Consultation (Routine) - Closed Specialty Diagnoses / Procedures Referred By Contac t Referred To Contact Behavioral Health Diagnoses Major depressive disorder, remission status unspecified, unspecified whether recurrent Anxiety Elsa Espitia MD [address] [place] [phone] Phone: tel: fax: Referral ID Status Reason Start Date Expiration Date V isits Requested Visits Authorized [id number] Closed Specialty Services Required 02/12/2025 02/12/2026 1 1 Encounter Details Date Type Department Care Team (Late st Contact Info) Description 02/12/2025 Orders Only [facility] MEDICINE [address] [place] [address] [phone] Elsa Espitia MD [address] [place] [address] [phone] Major depressive disorder, remission status unspecified, unspecified [...] as of this encounter Plan of Treatment Scheduled Referrals Name Type Priority Associated Diagnoses [...] documented as of this encounter Care Teams Agricultural Labor Camp Manager Relationship Specialty Start Date End Date Elsa Espitia MD [address] [place] [address] PCP - General Family Medicine 04/04/19 Kath White Wire Communications EngineerFurniture Shampooer 03/06/24 documented as of this encounter
--- OUTSIDE RECORDS SUMMARY | 2025-04-06 12:35 | XMS_ITS | Encounter Summary ---
Author Organization [employer] Address [address] 7[address] [place] [address] Care Team Providers Care Metal Engraver Name Role Phone Elsa Espitia MD Primary Care Provider [phone] Reason for Visit * Reason Comments Med Refill Encounter Details Date Type Department Care Team ([facility] st Contact Info) Description 10/29/2024 Refill [facility] MED[facility]INE [address] [place], [place] [phone] Elsa Espitia MD [address] [place], [place] [phone] Chronic low back pain, unspecified back pain [...] documented as of this encounter Care Teams Metal Engraver Relationship Specialty Start Date End Date Elsa Espitia MD [address] [place] [address] PCP - General Family Medicine 04/04/19 Kath Whiet Government Operations ConsultantBooks Binder 03/06/24 documented as of this encounter
--- OUTSIDE RECORDS SUMMARY | 2025-04-06 12:35 | XMS_ITS | Encounter Summary ---
Author Organization [employer] Address [address] [place] [address] Care Team Providers Care Financial Center Manager Name Role Phone Elsa Espitia MD Primary Care Provider [phone] Encounter Details Date Type Department Care Team ([facility] st Contact Info) Description 07/22/2024 Orders Only [facility] MEDICINE [address] [place] [address] Elsa Espitia MD [address] [place], [place] [phone] Social History Tobacco Use Types Packs/Day Years [...] documented as of this encounter Care Teams Financial Center Manager Relationship Specialty Start Date End Date Elsa Espitia MD [address] [place] [address] PCP - General Family Medicine 04/04/19 Kath White Radial Router OperatorSolderer Electronic 03/06/24 documented as of this encounter
--- OUTSIDE RECORDS SUMMARY | 2025-04-06 12:35 | XMS_ITS | Encounter Summary ---
Author Organization [employer] Address [address] [place] [address] Care Team Providers Care Senior Sql Server Developer Name Role Phone Elsa Espitia MD Primary Care Provider [phone] Reason for Visit * Reason Comments Med Refill Encounter Details Date Type Department Care Team ([facility] st Contact Info) Description 09/27/2023 Refill [facility] MEDICINE [address] [place], [place] [phone] Curt Carnes MD [address] [place], [place] [phone] Gastroesophageal reflux disease, unspecified whether esophagitis present [...] this encounter Care Teams Senior Sql Server Developer Relationship Specialty Start Date End Date Elsa Espitia MD [address] [place] [address] PCP - General Family Medicine 04/04/19 Kath White Wheat Combine DriverTrouble Lineman 03/06/24 documented as of this encounter
--- OUTSIDE RECORDS SUMMARY | 2025-04-06 12:35 | XMS_ITS | Encounter Summary ---
Author Organization [employer] Address [address] [place] [address] Care Team Providers Care Director Specialty Name Role Phone Elsa Espitia MD Primary Care Provider [phone] Reason for Visit * Reason Onset Date Comments Med Refill 07/22/2024 Encounter Details Date Type Department Care Team ([facility] st Contact Info) Description 07/22/2024 Telephone [facility] MEDICINE [address] [place], [place] [phone] Elsa Espitia MD [address] [place], [place] [phone] Med Refill Social History Tobacco Use Types [...] 50 MG tablet To be sent to: [facility] documented in this encounter Plan of Treatment Not on file documented as of this encounter Visit Diagnoses Not on filedocumented in this encounter Additional Health Concerns Assessment Noted Time PHQ-9 Depression Total Score: 0 06/01/20 23 10:46 AM EDT documented as of this encounter Care Teams Director Specialty Relationship Specialty Start Date End Date Elsa Espitia MD [address] [place] [address] PCP - General Family Medicine 04/04/19 Kath White Metal Cabinet FinisherImmigration Specialist 03/06/24 documented as of this encounter
--- OUTSIDE RECORDS SUMMARY | 2025-04-06 12:35 | XMS_ITS | Clinical Summary ---
Author Organization [facility] Address [address] [address] Care Team Providers Care Personal Banking Advisor Name Role Phone Elsa Espitia MD Primary Care Provider [phone] Social History Tobacco Use Types Packs/Day Years [...] Insurance Medicaid [place] Medicaid [place] Care Teams Personal Banking Advisor Relationship Specialty Start Date End Date Elsa Espitia MD PCP - General Family Medicine 03/20/22
--- OUTSIDE RECORDS SUMMARY | 2025-04-06 12:35 | XMS_ITS | Clinical Summary ---
Author Organization [employer] Address [address] [facility] [address] [address] [place] [address] Care Team Providers Care Chief Diversity Officer Name Role Phone Elsa Espitia MD Primary Care Provider [phone] Allergies Active Allergy Reactions Criticality Noted Date [...] AFFECTED AREA(S) AND SURROUNDING SKIN 30 g 023 Active Breo Ellipta 200-25 MCG/ACT aerosol powder TAKE 1 PUFF BY MOUTH EVERY DAY FOR 30 DAYS Active Incruse Ellipta 62.5 MCG/ACT aerosol powder TAKE 1 PUFF BY MOUTH EVERY DAY Active gabapentin (Neurontin) 300 MG capsule TAKE 1 CAPSULE BY MOUTH AT BEDTIME. MAY INCREASE TO 2 CAPSULES AT BEDTIME AFTER DE 1 WEEK 60 capsule 11 Active lisinopril 2.5 MG tablet TAKE 1 TABLET BY MOUTH EVERY MORNING 90 tablet 3 024 Active albuterol (2.5 MG/3ML) 0.083% nebulizer solution INHALE 1 AMPULE USING A NEBULIZER THREE TIMES DAILY 90 mL 1 024 Active omeprazole (PriLOSEC) [address] capsule TAKE 1 CAPSULE BY MOUTH EVERY MORNING BEFORE BREAKFAST DO NOT BREAK, CRUSH, DISSOLVE OR CHEW 90 capsule 3 024 Active Lantus SoloStar 100 UNIT/ML pen INJECT 18 UNITS SUBCUTANEOUSLY EVERY EVENING DIRECTED 15 mL 025 Active Trulicity 0.75 MG/0.5ML solution auto-injectorIn dications:Type 2 diabetes mellitus with other specified complication, with long-term current use of insulin (CMS/HCC) INJECT ONE PEN (=0.75MG) SUBCUTANEOUSLY ONCE A WEEK DIRECTED 2 mL 11 025 Active metFORMIN XR (Glucophage-XR) 500 MG 24 hr tabletIndicatio ns:Type 2 diabetes mellitus with other specified complication, with long-term current use of insulin (CMS/HCC) TAKE 1 TABLET BY MOUTH TWICE DAILY IN THE MORNING AND IN THE EVENING WITH MEALS 180 tablet 3 025 Active predniSONE (Deltasone) 20 MG tabletIndicatio [...] FOR ITCHING OR FOR ALLERGIES 60 tablet Active hydrOXYzine pamoate (Vistaril) 25 MG capsule TAKE 1 CAPSULE BY MOUTH AT BEDTIME 30 capsule 025 Active traZODone (Desyrel) 50 MG tablet TAKE 1 TABLET BY MOUTH AT BEDTIME 30 tablet 025 Active Farxiga 10 MG TAKE 1 TABLET BY MOUTH EVERY MORNING 90 tablet Active amitriptyline (Elavil) 50 MG tabletIndicatio ns:Depression, unspecified depression type,Insomnia, unspecified type,Chronic pain due to trauma TAKE 1 TABLET BY MOUTH AT BEDTIME 30 tablet 025 Active atorvastatin (Lipitor) 20 MG tablet TAKE 1 TABLET BY MOUTH AT BEDTIME 90 tablet 3 025 Active cloNIDine (Catapres) 0.1 MG tablet TAKE 1 TABLET BY MOUTH AT BEDTIME 90 tablet 3 025 Active Ferrous Sulfate (iron) 325 (65 Fe) MG tablet TAKE 1 TABLET BY MOUTH TWICE DAILY IN THE MORNING AND IN THE EVENING WITH ORANGE JUICE 180 tablet 3 Active metoprolol tartrate (Lopressor) 50 MG tablet TAKE 1 TABLET BY MOUTH TWICE DAILY IN THE MORNING AND IN THE EVENING WITH MEALS 180 tablet 3 025 Active Oyster Shell Calcium 500 MG tabletIndicatio ns:Other specified personal risk factors, not elsewhere classified TAKE 1 TABLET BY MOUTH TWICE DAILY IN THE MORNING AND IN THE EVENING 180 tablet 2 Active Pentips Generic Pen [place] 32G X 4 MM misc USE ONCE DAILY DIRECTED 100 each 3 Active cyanocobalamin (Vitamin B-12) 1000 MCG tablet TAKE 1 TABLET BY MOUTH EVERY MORNING 90 tablet 3 Active ergocalciferol (Vitamin D2) 1.25 MG (55768 UT) capsuleIndicati ons:Vitamin D deficiency TAKE 1 CAPSULE BY MOUTH ONCE WEEKLY ON Sunday 12 capsule 1 Active traMADol (Ultram) 50 MG tabletIndicatio ns:Chronic low back pain, unspecified back pain laterality, unspecified whether sciatica present Take 1 tablet (50 mg) by mouth every 8 (eight) hours. 30 tablet Active insulin pen needle (Pentips) 32G x 4 mm misc USE DAILY WITH INSULIN 100 each 3 Active TRUEplus Lancets 33G misc TEST BLOOD SUGAR TWICE A DAY 100 each 11 Active FREESTYLE LITE test strip Check blood glucose three times daily and as needed 100 strip 11 025 Active FREESTYLE LITE test strip TEST BLOOD SUGAR TWICE DAILY 100 strip 11 023 2024 Discontinued(R eorder (will not trigger notification to Pharmacy)) insulin pen needle (Pentips) 32G x 4 mm misc USE DAILY WITH INSULIN 100 each 3 024 2024 Discontinued(R eorder (will not trigger notification to Pharmacy)) cyanocobalamin (Vitamin B-12) 1000 MCG tablet TAKE 1 TABLET BY MOUTH EVERY MORNING 90 tablet 3 024 2024 Discontinued metoprolol tartrate (Lopressor) 50 MG tablet TAKE 1 TABLET BY MOUTH TWICE DAILY IN THE MORNING AND IN THE EVENING WITH MEALS 180 tablet 3 024 2024 Discontinued FeroSul 325 (65 Fe) MG tablet TAKE 1 TABLET BY MOUTH TWICE DAILY IN THE MORNING AND IN THE EVENING WITH ORANGE JUICE 180 tablet 3 024 2024 Discontinued cloNIDine (Catapres) 0.1 MG tablet TAKE 1 TABLET BY MOUTH AT BEDTIME 90 tablet 3 024 2024 Discontinued atorvastatin (Lipitor) 20 MG tablet TAKE 1 TABLET BY MOUTH AT BEDTIME 90 tablet 3 024 2024 Discontinued Oyster Shell Calcium 500 MG tabletIndicatio ns:Other specified personal risk factors, not elsewhere classified TAKE 1 TABLET BY MOUTH TWICE DAILY IN THE MORNING AND IN THE EVENING 180 tablet 2 024 2024 Discontinued ergocalciferol (Vitamin D2) 1.25 MG (42750 UT) capsuleIndicati ons:Vitamin D deficiency TAKE 1 CAPSULE BY MOUTH ONCE WEEKLY ON SUNDAY MORNING 12 capsule 1 024 2024 Discontinued Continuous Glucose Aircraft Delivery Checker (FreeStyle Teja 2 [place]) device Scan sensor every 8 hours 1 each 2024 Discontinued(O ther) Continuous Glucose Sensor (FreeStyle Teja 2 Sensor) misc Apply 1 sensor every 14 days 2 each 11 2024 Discontinued(O ther) glucose blood (FreeStyle Precision Joaquim Test) test strip Use to test blood sugar 3 times daily and as needed 100 each 11 024 2024 Discontinued(P atient refused) Farxiga 10 MG TAKE 1 TABLET BY MOUTH EVERY MORNING 90 tablet 2024 Discontinued amitriptyline (Elavil) 50 MG tabletIndicatio ns:Depression, unspecified depression type,Insomnia, unspecified type,Chronic pain due to trauma TAKE 1 TABLET BY MOUTH AT BEDTIME 90 tablet 024 2024 Discontinued TRUEplus Lancets 33G misc TEST BLOOD SUGAR TWICE A DAY 100 each 11 025 2024 Discontinued(R eorder (will not trigger notification to Pharmacy)) traMADol (Ultram) 50 MG tabletIndicatio ns:Chronic low back pain, unspecified back pain laterality, unspecified whether sciatica present Take 1 tablet (50 mg) by mouth every 8 (eight) hours. 30 tablet 025 2024 Discontinued(R eorder (will not trigger notification to Pharmacy)) Active Problems Problem Noted Date Diagnosed Date Chronic liver disease 12/29/2024 Assessment & Plan (03/31/2025 12:56 PM EDT): - following with [facility] - hepatomegaly noted on US - likely MASLD - work on healthy diet - upcoming appointment for CT scan Assessment & Plan (12/29/2024 11:02 PM EST): - following with [facility] - hepatomegaly noted on US - [...] Major depressive disorder 04/05/2023 Assessment & Plan (03/31/2025 1:09 PM EDT): -current S provider: [facility] -current medications: clonidine; hydroxyzine; sertraline; amitriptyline -will add trazodone 50mg at bed time for insomnia -hydroxyzine was decreased due to prolonged QT -she was able to contract her safety today Assessment & Plan (09/18/2024 12:31 PM EDT): -current S provider: [facility] -current medications: clonidine; hydroxyzine; sertraline; amitriptyline -will add trazodone 50mg at bed time for insomnia -hydroxyzine was decreased due to prolonged QT -she was able to contract her safety today Assessment & Plan (02/08/2024 5:53 PM EDT): -current [facility] provider: [facility] -current medications: clonidine; hydroxyzine; sertraline; amitriptyline -hydroxyzine was decreased due to prolonged QT -she was able to contract her safety today Assessment & Plan (07/21/2023 7:09 AM EDT): -current [facility] provider: [facility] -current medications: clonidine; hydroxyzine; sertraline; amitriptyline -hydroxyzine was decreased due to prolonged QT -she was able to contract her safety today Assessment & Plan (04/05/2023 6:21 PM EDT): -current [facility] provider: [facility] -current medications: clonidine; hydroxyzine; sertraline; amitriptyline -incease amitriptyline to 50 mg qhs for insomnia -she was able to contract her safety today Chronic pain of right knee 04/05/2023 Assessment & Plan (04/06/2025 9:09 AM EDT): -s/p right knee arthroscopy and partial lateral meniscectomy [place] [address] Cole -Seen by [facility] ortho in Aug 2019 -Waiting for hyaluronate derivative injection -Limited analgesic options due to ASA allergy and Hx substance use d/o -Continue APAP prn -Judicious use of tramadol -seen by [facility] in Jul 2021, pt was suggested to have total knee replacement of right knee. -refer back to ortho Assessment & Plan (12/29/2024 11:03 PM EST): -s/p right knee arthroscopy and partial lateral meniscectomy [place] [address] Cole -Seen by [facility] ortho in Aug 2019 -Waiting for hyaluronate [...] Nov [address] Cole -Seen by [facility] orth[facility] in Aug 2019 -Waiting for hyaluronate [...] Nov [address] Cole -Seen by [facility] in Aug 2019 -Waiting for hyaluronate [...] Nov [address] Cole -Seen by [facility] ortho in Aug 2019 -Waiting for hyaluronate [...] Nov [address] Cole -Seen by [facility] ortho in Aug 2019 -Waiting for hyaluronate derivative injection -Limited analgesic options due to ASA allergy and Hx substance use d/o -Continue APAP prn -Judicious use of tramadol -seen by [facility] in Jul 2021, pt is expected to have total knee replacement of right knee Type 2 diabetes mellitus wit h kidney complication, with long-term current use of insulin 04/05/2023 Assessment & Plan (03/31/2025 1:43 PM EDT): - A1c is 7.1% on 03/31/25, slight increase from A1C 7.0% on 12/23/24 - Continue Metformin [...] exam: 12/23/24 tinea pedis -Last microalbumin test: 12/23/24 UACR nml. -Last Lipid profile: 12/23/24 Assessment & Plan (12/29/2024 11:07 PM EST): [...] kidney disease (CKD) 04/05/2023 Assessment & Plan (04/01/2025 9:57 PM EDT): - avoid nephrotoxic drugs - renal dose medications - Referral to Nephrology 03/31/25 Assessment & Plan (12/29/2024 10:59 PM EST): [...] tunnel release surgery; patient was seen for platen grinder for clearance. Patient states she has not [...] Asthma with COPD 02/20/2023 Assessment & Plan (03/31/2025 12:56 PM EDT): Pt is following w/ [facility], last seen on 11/18/23. -Last exacerbation in February 2022, acute respiratory failure with pneumonia, hospitalized in [facility] -Maintenance medication: fluticasone furonate / vilanterol (Breo) and umeclidinium (Incruse) -Treatment Hx: Previously Alvesco and budesonide / formoterol (Symbicort) -Rescue medication: albuterol HFA and nebulizer -Congratulated on smoking cessation effort, encourage to continue Assessment & Plan (12/29/2024 11:00 PM EST): Pt is following w/ [facility], last seen on 11/18/23. -Last exacerbation in February 2022, acute respiratory failure with pneumonia, hospitalized in [facility] -Maintenance medication: fluticasone furonate / vilanterol (Breo) and umeclidinium (Incruse) -Treatment Hx: Previously Alvesco and budesonide / formoterol (Symbicort) -Rescue medication: albuterol HFA and nebulizer -Congratulated on smoking cessation effort, encourage to continue Assessment & Plan (09/18/2024 12:28 PM EDT): Pt is following w/ [facility], last seen on 11/18/23. -Last exacerbation in February 2022, acute respiratory failure with pneumonia, hospitalized in [facility] -Maintenance medication: fluticasone furonate / vilanterol (Breo) and umeclidinium (Incruse) -Treatment Hx: Previously Alvesco and budesonide / formoterol (Symbicort) -Rescue medication: albuterol HFA and nebulizer -Congratulated on smoking cessation effort, encourage to continue Assessment & Plan (02/08/2024 5:58 PM EDT): Pt is following w/ [facility], last seen on 11/18/23. -Last exacerbation in February 2022, acute respiratory failure with pneumonia, hospitalized in [facility] -Maintenance medication: fluticasone furonate / vilanterol (Breo) and umeclidinium (Incruse) -Treatment Hx: Previously Alvesco and budesonide / formoterol (Symbicort) -Rescue medication: albuterol HFA and nebulizer -Congratulated on smoking cessation effort, encourage to continue Assessment & Plan (07/21/2023 6:58 AM EDT): Pt is following w/ [facility], last seen on 05/25/22. -Last exacerbation in February 2022, acute respiratory failure with pneumonia, hospitalized in [facility] -Maintenance medication: Symbicort -Treatment Hx: Previously Alvesco -Rescue medication: albuterol HFA and nebulizer -Congratulated on smoking cessation effort, encourage to continue Assessment & Plan (04/05/2023 6:11 PM EDT): Pt is following w/ [facility], last seen on 05/25/22. -Last exacerbation in February 2022, acute respiratory failure with pneumonia, hospitalized in [facility] -Maintenance medication: Previously Alvesco, but she has not had one for a while. Start Symbicort. -Rescue medication: albuterol HFA and nebulizer -Congratulated on smoking cessation effort, encourage to continue Assessment & Plan (02/20/2023 5:31 AM EDT): Pt is following w/ [facility], last seen on 05/25/22. -Last exacerbation in February 2022, acute respiratory failure with pneumonia, hospitalized in [facility] -Maintenance medication: Symbicort -Rescue medication: albuterol HFA [...] recurrence Essential hypertension 09/06/2015 Assessment & Plan (03/31/2025 12:56 PM EDT): -Goal BP < 140/90 per [...] if any problem arises Assessment & Plan (12/25/2024 11:07 PM EST): [...] Chronic back pain 07/17/2012 Assessment & Plan (03/31/2025 1:08 PM EDT): -mainly right side, history of kidney [...] - Evaluated by both pain management and mgmt specialist, recommending injection treatment which patient no longer desires. - Currently prescribed lidocaine patch, gabapentin (for both chronic pain of knee, carpal tunnel syndrome, and chronic back pain), and tramadol. - Reviewed judicious use of medications. -Referred to a mgmt specialist; consider referring her to literary agent - Patient declined injection treatment referral again and agreed to be referred to PT. Assessment & Plan (12/25/2024 11:07 PM EST): [...] - Evaluated by both pain management and mgmt specialist, recommending injection treatment which patient no longer desires. - Currently prescribed lidocaine patch, gabapentin (for both chronic pain of knee, carpal tunnel syndrome, and chronic back pain), and tramadol. - Reviewed judicious use of medications. -Referred to a mgmt specialist; consider referring her to literary agent - Patient declined injection treatment referral again [...] - Rx Lidoderm Patch -Referred to a mgmt specialist in Sep 2022 Assessment & Plan [...] - Rx Lidoderm Patch -Referred to a mgmt specialist; consider referring her to literary agent Assessment & Plan (09/21/2024 5:28 AM EDT): [...] - Evaluated by both pain management and mgmt specialist, recommending injection treatment which patient no longer desires. - Currently prescribed lidocaine patch, gabapentin (for both chronic pain of knee, carpal tunnel syndrome, and chronic back pain), and tramadol. - Reviewed judicious use of medications. -Referred to a mgmt specialist; consider referring her to literary agent - Patient declined injection treatment referral again and agreed to be referred to PT. Diabetes mellitus, type 2 07/17/2012 Assessment & Plan (04/06/2025 9:12 AM EDT): - A1c is 7.1% on 03/31/25, slight increase from A1C 7.0% on 12/23/24 - Continue Metformin [...] exam: 12/23/24 tinea pedis -Last microalbumin test: 12/23/24 UACR nml. -Last Lipid profile: 12/23/24 Assessment & Plan (12/29/2024 11:07 PM EST): [...] are up-to-date Dyslipidemia 07/17/2012 Assessment & Plan (04/06/2025 9:12 AM EDT): - current medication: atorvastatin 20 mg at bedtime - last lipid profile 12/23/24 - continue working on lifestyle modification - continue medication Assessment & Plan (09/18/2024 12:31 PM EDT): [...] Nov [address] Cole -Seen by [facility] ortho in Aug 2019 -Waiting for hyaluronate [...] w QTC prolongation( hydroxyzine) -referred today to platen grinder to further eval QTC prolongation -I called today her previous platen grinder who was not concern w prolongation for surgery but last eval pt 2 years ago -I would rather have a new evaluation to confirm there are no cardiac risk associated for this nor urgent surgery.-requested referral to consumer electronic retail specialist to be done as soon as [...] organization. Date Type Department Care Team Description 03/31/2025 1:00 PM EDT Office Visit [facility] [address] [place] [phone] Elsa Espitia MD Asthma with COPD ([facility]) (Primary Dx); Essential hypertension; Chronic liver disease; Type 2 diabetes mellitus with stage 3b chronic kidney disease, with long-term current use of insulin ([facility]); Type 2 diabetes mellitus with stage 3 chronic kidney disease, with long-term current use of insulin, unspecified whether stage 3a or 3b CKD ([facility]); Dyslipidemia; Major depressive disorder, remission status unspecified, unspecified whether recurrent; Chronic low back pain, unspecified back pain laterality, unspecified whether sciatica present; Chest pain, unspecified type; Chronic pain of right knee; Pain in right leg; Stage 3a chronic kidney disease ([facility]) 03/31/2025 Travel 03/31/2025 Refill [facility] [address] [place] [phone] Elsa Espitia MD Other specified personal risk factors, not elsewhere classified; Vitamin D deficiency 03/27/2025 Telephone [facility] [address] [place] [phone] Elsa Espitia MD chartprep 03/12/2025 Refill [facility] [address] [place] [phone] Natalie Flores MD Depression, unspecified depression type; Insomnia, unspecified type; Chronic pain due to trauma 03/04/2025 Refill [facility] [address] [place] [phone] Natalie Flores MD 03/04/2025 Refill [facility] [address] [place] [phone] Nadja Shaffer FNP Allergic reaction, subsequent encounter 02/12/2025 Orders Only [facility] [address] [place] [phone] Elsa Espitia MD Major depressive disorder, remission status unspecified, unspecified whether recurrent (Primary Dx); Anxiety 02/11/2025 Telephone [facility] [address] [place] [address] [place] [phone] Elsa Espitia MD Behavioral Health Request 02/09/2025 Refill [facility] [address] [place] [address] Elsa Espitia MD 02/06/2025 Population Health Risk Score [facility] () Department [address] [place] [phone] Provider, Population Health Generic 01/11/2025 Refill [facility] [address] [place] [address] Elsa Espitia MD Depression, unspecified depression type; Gastroesophageal reflux disease, unspecified whether esophagitis present from Last 3 Months Immunizations Name Administration [...] Sign Reading Time Taken Comments Blood Pressure 137/87 03/31/2025 1:23 PM EDT Pulse 97 03/31/2025 1:23 PM EDT Temperature 36.3 ??C (97.3 ??F) 03/31/2025 1:23 PM ED T Respiratory Rate 17 03/31/2025 1:23 PM EDT Oxygen Saturation 96% 03/31/2025 1:23 PM EDT Inhaled Oxygen Concentration - - Weight 64 kg (141 lb) 03/31/2025 1:23 PM EDT Height 152.4 cm (5') 03/31/2025 1:23 PM EDT Body Mass Index 27.54 03/31/2025 1:23 PM EDT Plan of Treatment Health Maintenance Due Date Last Done Comments CT Colonography 1966 Colonoscopy 1966 Colorectal Cancer Screening 1965 FIT DNA/Cologuard 1966 FIT 1966 FOBT 1966 Sigmoidoscopy 1966 Pap Smear 1987 HPV/Cotest 1996 Hepatitis A Vaccines (2 of 3 - Hep A Twinrix risk 3-dose series) 06/14/2016 05/17/2016 COVID-19 Vaccine ( - season) 2024 12/16/2021, 06/14/2021, 05/23/2021 Diabetes: Hemoglobin A1C 07/01/2025 025, 12/23/2024, 12/23/2024, Additional history exists Alcohol/Substance Use Screening 09/18/2025 09/18/2024 Depression Screening 09/18/2025 09/18/2024, 09/18/20 SDOH Screening 09/18/2025 09/18/2024 Diabetes: Foot Exam 12/23/2025 12/23/2024, 10/17/2023, 10/17/2023, Additional history exists Lipid Panel 12/23/2025 12/23/2024, 05/1 , 06/27/2022, Additional history exists Mammogram 03/06/2026 03/06/2024, 06/0 07/2022, 05/03/2021 Tobacco Screening 03/31/2026 03/31/2025 DTaP/Tdap/Td Vaccines (3 - Td or Tdap) [...] Name Priority Date/Time Associated Diagnosis Comments POCT GLYCATED HEMOGLOBIN, TOTAL Routine 03/31/2025 1:26 PM EDT Type 2 diabetes mellitus with stage 3b chronic kidney disease, with long-term current use of insulin (CMS/HCC) POCT GLUCOSE Routine 03/31/2025 1:25 PM EDT Type 2 diabetes mellitus with stage 3b chronic kidney disease, with long-term current use of insulin (CMS/HCC) LIPID PANEL WITH REFLEX TO DIRECT [...] to Health Maintenance Results * (ABNORMAL) POCT HGB A1C (03/31/2025 1:26 PM EDT) Hemoglobin A1C 7.1(A) 4.0 - 6.0 % QC Media Lot # [id number] Lot# Expiration Date Blood 03/31/2025 1:26 PM EDT us Elsa Espitia MD POINT OF CARE TEST ENTER/EDIT OR DERABLES Final Result * POCT Glucose (03/31/2025 1:25 PM EDT) Glucose Blood, POC 187 60 - 200 mg/dL QC Media Lot # [id number] Lot# Expiration Date Blood Capillary blood specimen / Unknown 03/31/2025 1:25 PM EDT Elsa Espitia MD POINT OF CARE TEST ENTER/EDIT OR DERABLES Final Result * (ABNORMAL) Lipid Panel with Reflex to Direct LDL (12/23/2024 2:54 PM EST) Triglycerides 263(H) <150 mg/dL [facility] Comment:Desirable Triglyceri de: less than 150 mg/dLBorderline High Triglyceride 150-199 mg/dLHigh Triglyceride: 200-499 mg/dLVery High Triglyceride: greater than or equal to 5OO mg/dL Cholesterol 174 <200 mg/dL [facility] Comment:Desirable Cholestero l: less than 200 mg/dLBorderline High Cholesterol: 200-239 mg/dLHigh Cholesterol: greater than 239 mg/dL LDL Cholesterol Calculated 79 <100 mg/dL [facility] Comment:Desirable LDL: less than 100 mg/dLNear Optimal/Above Optimal LDL: 110- 129 mg/dLBorderline High LDL: 130-159 mg/dLHigh LDL: 160-189 mg/dLVery High LDL: greater than or equal to 190 mg/dL HDL Cholesterol 43 >40 mg/dL [facility] Comment:Desirable HDL: great er than 40 mg/dL Note: This HDL assay may give artificially low results in patients with liver disease. Blood 12/23/2024 2:54 PM EST 12/26/2024 9:18 AM EST us Elsa Espitia MD LAB BLOOD ORDERABLES Final Resul t Performing Organization Address [facility]/State/ZIP Co de Phone Number [facility] [address] [place] [address] [phone] * BI Mammogram Screening Tomosynthesis Bilateral (03/06/2024 2:35 PM EDT) Anatomical Region Laterality Modality Breast Bilateral Mammography 03/06/2024 2:35 PM EDT Narrative 04/03/2024 10:00 PM EDT ? [facility] ? [address] ?[place] [id number] ? Mammography Report ? Signed ? Patient: Thiago Das,Lakshmi ? MR#: [id number] ? : 1965 ?Acct:[id number] ? Age/Sex: 58 / F ?ADM Date: 03/06/24 ? Loc: HO.MAMMO ? Attending Dr: Elsa Espitia MD ? Ordering Physician: Elsa Espitia MD ?Results: 1Negative ? Date of Service: 03/06/24 ?Follow Up: 1 Year From Orig ?? inal Mammogram ? Procedure(s): MM tomosynthesis screening BI ?? Accession Number(s): [id number] ? cc: Elsa Espitia MD ? EXAMINATION: [...] 04/03/242156 ? DD/ 1435 ? TD/TT: ? Continuity Clerk: ? Procedure Note Leo Chang - 04/03/2024 [facility] [address] [place] [address] Dr. [place], [place] [phone] Mammography Report Signed Patient: Lakshmi Avalos MR#: [id number] : 1965Acct:[id number] Age/Sex: 58 / FADM Date: 03/06/24 Loc: [facility] Attending Dr: Elsa Espitia MD Ordering Physician: Elsa Espitia MDResults: 1Negative Date of Service: 03/06/24Follow Up: 1 Year From Orig inal Mammogram Procedure(s): MM tomosynthesis screening BI Accession Number(s): [id number] cc: Elsa Espitia MD EXAMINATION: MM SCREENING [...] signed by Heike Ashley MD in OV> 04/03/24 2157 DD/ 1435 TD/TT: Continuity Clerk: Elsa Espitia MD [facility] [place] BI PROCEDURES Edited Result - Final * HEPATITIS C AB W/REFL TO HCV RNA, QN, PCR (03/30/2021 9:31 AM EDT) HEPATITIS C ANTIBODY NON-REACT [facility] NON-[facility] INDEX 0.01 <1.00 [facility] Comment: ?? HCV antibody was non-reactive. There is no laboratory ?? evidence of HCV infection. ?? In most cases, no further action is required. However, if recent HCV exposure is suspected, a test for HCV RNA (test code 57988) is suggested. ?? For additional information please refer to http://education.[employer]/faq/RNG27f9 (This link is being provided for informational/ educational purposes only.) ?? 03/30/2021 9:31 AM EDT Elsa Espitia MD HISTORICAL/NON ORDERABLE LABS Fi nal Result Performing Organization Address [facility] de Phone Number [facility] [address] * HIV 1/2 ANTIGEN/ANTIBODY,FOURTH GENERATION W/RFL [...] ? For additional information please refer to http://education.[employer]/faq/LDU093 (This link is being provided for informational/ educational purposes only.) ? The performance of this assay has not been clinically validated in patients less than 2 years old. ?? 03/30/2021 9:31 AM EDT Elsa Espitia MD LAB BLOOD ORDERABLES Final Resul t Performing Organization Address [facility] Phone Number [facility] [address] from Last 3 Months or Most Recently Relevant to Health Maintenance Insurance [facility] C3 HSN FULL Care Teams Chief Diversity Officer Relationship Specialty Start Date End Date Elsa Espitia MD [address] [place] [id number] PCP - General Family Medicine 04/04/19 Kath White Electrical Electronics EngineersNeedle Punch Machine Operator Helper 03/06/24
== END 2025-04-06 12:01 | disposition home or self-care (01) ==
LOC: HO.MAMMO 12:00
PROVIDERS: PCP Family Medicine; Visit Provider Family Medicine
DX: Z12.31 Encounter for screening mammogram for malignant neoplasm of breast (principal)
CPT/HCPCS: 77063; 77067

== ENCOUNTER → 2025-04-06 12:15 | Outpatient (BNV) | payer MEDICAID, SELFPAY | PROVIDERS: PCP Family Medicine; Visit Provider Internal Medicine | DX: Z12.31 Encounter for screening mammogram for malignant neoplasm of breast (principal) | CPT/HCPCS: 77063; 77067 ==

== ENCOUNTER 2025-04-14 13:40 | Outpatient (AMB) | payer MEDICAID, SELFPAY ==
--- NOTE | 2025-04-14 13:45 | MHC.OFFVIS ---
Vital Signs 04/14/25 13:46 Height 5 ft 2 in Weight 142 lb BMI 26.0 BP 110/69 Blood Pressure Location Lt brachial Position Sitting Pulse 90 Pulse Oximetry (%) 97 Oxygen Delivery Method Room Air Intake Visit Reasons: ramandeep pt Intake Note: Patient complex followup/Ramandeep alfredo 11/28/2023 for diarrhea. SHe was order an abdomen US on 10/19/[address] Mtz order an abdomen and pelvis CT scan on 12/25/2024 and the results are in file. Patient cc: abdominal pain with bloating on and off with constipation. Denies any other GI issues for today. Scaffold Erector Required: Yes Scaffold Erector Name: [facility] Accompanied by: Self / Same As Patient Allergies aspirin [Aspirin] Allergy (Intermediate, Verified 04/14/25 13:44) EYES SWELLING Penicillins Allergy (Intermediate, Verified 04/14/25 13:44) RASH citalopram Allergy (Unknown, Verified 04/14/25 13:44) chest pain Diltiazem HCl Allergy (Unknown, Uncoded 03/20/25 13:09) Unknown Medication List - Last Reconciled 04/14/25 by Tiana Betancourt, JENNIFER albuterol sulfate 5 mg inhalation Q4H PRN albuterol sulfate 90 mcg/actuation 2 puffs inhalation Q4-6H PRN amitriptyline 50 mg PO DAILY atorvastatin 20 mg PO BEDTIME bisacodyl (Dulcolax (bisacodyl)) 20 mg (4 x 5 mg) PO ONCE 1 day calcium carbonate 500 mg PO cetirizine (Zyrtec) 10 mg PO DAILY clonidine HCl 1 tab PO BEDTIME cyanocobalamin (vitamin B-12) 1 tab PO DAILY dapagliflozin propanediol (Farxiga) 1 tab PO DAILY dulaglutide (Trulicity) mg subcut QWEEK ergocalciferol (vitamin D2) 1 cap PO OWENS ferrous sulfate (FeroSul) 1 tab PO BID fluticasone furoate-vilanterol 200-25 mcg/dose (Breo Ellipta) 1 inh inhalation DAILY 30 days fluticasone propionate 50 mcg/actuation (Flonase Allergy Relief) 2 sprays intranasal DAILY gabapentin 0 mg PO hydroxyzine pamoate 1 cap PO BEDTIME insulin glargine 20 units (0.2 mL) subcut QPM lancets (TRUEplus Lancets) As directed lidocaine 5% (Lidoderm) 0 patches topical lisinopril 2.5 mg PO QAM metformin ER 500 mg PO metoclopramide HCl 5 mg PO QID metoprolol tartrate 1 tab PO BID omeprazole 40 mg (2 x 20 mg) PO DAILY 30 days pen needle, diabetic (Pen Needle) As directed sertraline 100 mg PO DAILY sucralfate 1 g PO BID tramadol 50 mg PO DAILY umeclidinium 62.5 mcg/actuation (Incruse Ellipta) 1 inh inhalation DAILY 30 days HPI HPI ramandeep pt: Details: Patient is a 59-year-old Angolan-speaking female with PMH of diabetes, hypertension, arthritis, asthma, depression and GERD. Last visit with TIFF Rutledge 11/28/2023 for pre endoscopy screening. The patient had difficulty with the prep for the previous upper endoscopy and colonoscopy, feeling too full to complete the required intake. They were unable to finish the prep solution, which led to the procedures not being completed. She had not any previous colon cancer screening or endoscopy. She reports ongoing abdominal bloating and constipation for the past two years. Symptoms initially started without a clear onset trigger and are primarily located in the abdomen. The bloating causes a full feeling, described as appearing almost , and sometimes involves mild to severe pain characterized by a twisting sensation. Symptoms are episodic, occurring about once a week, and can vary in severity from mild to severe. She is currently rating pain as mild . Constipation is marked by infrequent bowel movements, approximately once a week, with hard stools and the need for straining. The patient does not recall any food or drink triggers and states a decreased appetite. State she is taking the sucralfate although unsure the frequency. She is not taking the miralax due to powder formulation. She would prefer a pill. There are no hemorrhoids or blood in stools. Additionally, the patient experiences pyrosis once a week. Patient denies: fever/chills, dysphasia, unintentional wt loss or melena/hematochezia. Social History - Diet: Patient consumes meat, rice, and small plate servings, avoids vegetables and high-fiber foods. - Alcohol/Tobacco/Drug Use: Social alcohol use, stopped smoking three years ago. Exposed to secondhand marijuana smoke. - Occupation: Unspecified, no relevant occupational exposures mentioned. - family hx as below -denies personal hx of CA -tolerated anesthesia in the past without difficulty. [facility] Medical History (Updated 04/14/25 @ 16:05 by Tiana Betancourt CNP) Former smoker Colon cancer screening Gallbladder polyp Elevated AFP Pleural effusion Bronchopneumonia Diabetes THANH (acute kidney injury) Acute respiratory failure with hypoxia Pneumonia Asthma with acute exacerbation Asthma On beta mariaelena at home Hx of renal calculi Right knee injury Acute anxiety Depression GERD (gastroesophageal reflux disease) HTN (hypertension) Diabetic acidosis, type II Arthritis Surgical History History of hysterectomy Hx of arthroscopy of right knee Hx of cystoscopy Family History (Updated 04/14/25 @ 14:33 by Tiana Betancourt CNP) Father No problems noted. Mother No problems noted. Maternal Grandmother Cancer Other No family history of coronary artery disease Social History Household Members: None Housing: Apartment Alcohol intake: current Alcohol intake frequency: holidays/special occasions only Patient Tobacco Use Status: Former Tobacco user Years Smoked: 20 +/- Second Hand Smoke Exposure: No service: No Current occupational status: disabled Current occupation: right hand dominant Review of Systems Const Reports as per HPI ENT Reports as per HPI Card Reports as per HPI Resp Reports as per HPI GI Reports as per HPI Reports as per HPI Physical Exam Vital Signs: Oxygen Delivery Method Room Air 04/14/25 13:46 BMI result Body Mass Index 26.0 Const General: healthy appearing, no acute distress and well developed Nutritional Appearance: well nourished Orientation/consciousness: patient oriented x3 HEENT Head: Yes normal to inspection, Yes normocephalic and Yes atraumatic Face and sinus: Yes normal facial exam Eyes General: appearance normal, both eyes and all related structures Neck Neck: Yes normal visual inspection Resp Effort & Inspection: normal respiratory effort, able to speak in complete sentences, no tracheal deviation and symmetric chest movement Auscultation: wheezes (Otherwise CTA ) inspiratory wheezes and upper bilaterally Cardio Jugular venous distension: no JVD Rate: regular rate Rhythm: regular rhythm Heart sounds: S1 normal heart sound present, S2 normal heart sound present, no gallops and no murmurs GI Inspection: Yes normal to inspection, No distended and Yes obesity Palpation (GI): Soft to palpation, not firm, nontender and No hepatosplenomegaly present Auscultation: normal bowel sounds Neuro General: patient oriented x3 Gait exam (Neuro): Normal gait present Psych Appearance: grossly normal Mental Status: mental status grossly normal Speech and movement: Normal speech and movement present Affect: normal affect Attitude: cooperative Thought process: Normal thought process present Thought content: Normal thought content present Insight: Good insight present (Psych) Judgement: Good judgement present (Psych) Results Reviewed Results Reviewed: Date of Service: 12/25/24 Procedure(s): CT abdomen pelvis w IV con Accession Number(s): [id number] cc: Elsa Espitia MD; Nubia Mtz MD~ Report Number: [id number]: Total DLP = 258.00 mGy-cm EXAMINATION: CT ABDOMEN PELVIS WITH IV CONTRAST HISTORY: R59.0 - Localized enlarged lymph nodes COMPARISON: Comparison is made with the prior examination dated 02/01/2024. Correlation is also made with an abdominal ultrasound dated 10/17/2024. TECHNIQUE: CT scan of the abdomen and pelvis was performed following administration of 85 mL Omnipaque 350 using standard departmental protocol. Coronal and sagittal reformatted images were generated and reviewed. Oral contrast material was not administered at the request of the referring physician. This CT exam was performed with one or more of the following dose reduction techniques: automated exposure control, adjustment of the mA and/or kV according to patient size, use of iterative reconstruction technique. DLP: 58 mGy-cm FINDINGS: LOWER CHEST: The visualized lung bases are clear. There is no pleural effusion. CARDIOVASCULATURE: The heart is normal in size. There is no pericardial effusion. LIVER: The liver remains enlarged. No liver mass is identified. The hepatic and portal veins are patent. GALLBLADDER / BILE DUCTS: There is focal wall thickening and hyperemia of the fundus of the gallbladder. The appearance is unchanged dating back to a CT of the abdomen performed 09/03/2019. There is no intra or extrahepatic biliary ductal dilatation. SPLEEN: The spleen is normal in size. No focal splenic lesion is identified. PANCREAS: The pancreas is unremarkable in appearance. ADRENAL GLANDS: Within normal limits. KIDNEYS/RETROPERITONEUM: The left kidney is scarred and atrophic. No renal calculi are identified. There is no hydronephrosis. There is a 1.3 cm cyst at the upper pole of the left kidney. LYMPH NODES: There is a 2.2 cm jace hepatis/peripancreatic lymph node. There is no para-aortic lymphadenopathy. VASCULATURE: The abdominal aorta is normal in caliber. MESENTERY/PERITONEUM: No free fluid. No masses. There is no free intraperitoneal gas. STOMACH: The stomach is collapsed, limiting evaluation. SMALL BOWEL: The small bowel is normal in caliber. COLON: There is a moderate to large amount of stool throughout the colon. APPENDIX: Normal. URINARY BLADDER/PELVIC ORGANS: The urinary bladder is collapsed, limiting evaluation. The patient is status post hysterectomy. BONES / SOFT TISSUES: There is degenerative disc disease at the L5-S1 level. CT/CT abdomen pelvis w IV con IMPRESSION: 1. 2.2 cm jace hepatis/peripancreatic lymph node. No additional enlarged lymph nodes are identified. 2. Hepatomegaly. Focal thickening of the fundus of the gallbladder without change since 09/03/2019, which may represent adenomyomatosis. 3. Scarred and atrophic left kidney. Date of Service: 10/17/24 Procedure(s): US abdomen complete Accession Number(s): [id number] cc: Ramandeep Sandhu PA-C; Elsa Espitia MD~ EXAMINATION: US ABDOMEN COMPLETE CLINICAL INFORMATION: Abnormal levels of other serum enzymes. COMPARISON: CT abdomen and pelvis 02/01/2024. Ultrasound abdomen 12/26/2023. Renal ultrasound 11/16/2023. TECHNIQUE: Real-time imaging of the abdominal viscera. FINDINGS: PANCREAS: Prominent, enlarged peripancreatic lymph nodes measuring up to 1.6 cm and 1.3 cm. The visualized portion of the pancreas head and body are normal, portion of the pancreatic body and tail, not visualized are obscured by bowel gas. ABDOMINAL AORTA: The proximal, mid, and distal segments are normal in caliber. INFERIOR VENA CAVA: Visualized portions are normal. LIVER: Enlarged measuring up to 20 cm right lobe. The liver contour is normal. Increased echogenicity of the liver parenchyma, this can be seen in the setting of hepatic steatosis or liver parenchymal disease. Hypoechoic area in the liver adjacent to the gallbladder, the location is common for focal fat sparing. There is no intrahepatic biliary duct dilatation seen. GALLBLADDER: There are multiple gallstones, there are multiple echogenic structure adherent to the gallbladder wall probably polyps measuring up to 5 mm. The gallbladder is physiologically distended without evidence of pericholecystic fluid. COMMON BILE DUCT: Normal in caliber measuring 0.3 cm in diameter. RIGHT KIDNEY: Mild fullness of renal pelvis without caprice hydronephrosis. No hydronephrosis. No renal calculi or focal parenchymal lesions. The kidney measures 10.4 cm in maximum dimension. LEFT KIDNEY: Simple cyst upper pole 1 x 1 x 0.9 cm. No hydronephrosis or renal calculi. The kidney measures 11.8 cm in maximum dimension. SPLEEN: Echogenic structure in the spleen could be a hemangioma measure up to 4 x 5 x 6 mm The spleen measures 10.3 cm in maximum dimension. FREE FLUID: None. US/US abdomen complete IMPRESSION: 1. Hepatomegaly. Increased echogenicity of the liver parenchyma, this can be seen in the setting of hepatic steatosis or liver parenchymal disease. 2. Hypoechoic area in the liver adjacent to the gallbladder, the location is common for focal fat sparing. 3. Cholelithiasis without ultrasound evidence of acute cholecystitis. Multiple echogenic structures adherent to the gallbladder wall probably small polyps measuring 5 mm each. Attention to follow-up ultrasound in 6 months recommended. 4. There are 2 enlarged peripancreatic lymph nodes. Consider correlation with follow-up cross-sectional imaging CT scan or MRI, if not performed short-term follow-up ultrasound in 3 months advised.. 5. Fullness of right renal pelvis without caprice hydronephrosis. 6. Echogenic structure in the spleen 6 mm probably hemangioma. (Referring physician staff is being called, by physician staff assistance, to be alerted of the above critical findings and recommendations.) 9+ system 11/16/2024 11:10 AM BOND RUNNER Assessment & Plan Assessment & Plan (1) Epigastric pain: Code(s): R10.13 - Epigastric pain Category: Medical Plan: DDX include GERD VS constipation VS Hepatopancreatobiliary involvement. Reviewed abdominal pelvis CT from November 2024 with findings of focal thickening of gallbladder fundus and jace hepatis/peripancreatic lymph node without additional lymphadenopathy. Reassured there are no alarm symptoms. We will proceed with HIDA scan and management for constipation/GERD as below (2) Elevated alkaline phosphatase level: Code(s): R74.8 - Abnormal levels of other serum enzymes Category: Medical Plan: Consistently elevated since 2019. Repeat levels collected 12/23/2024 WNL. However, we will obtain fasting and additional screening labs given imaging findings as above. (3) GERD (gastroesophageal reflux disease): Code(s): K21.9 - Gastro-esophageal reflux disease without esophagitis Category: Medical Qualifiers: Esophagitis presence: esophagitis presence not specified Qualified Code(s): K21.9 - Gastro-esophageal reflux disease without esophagitis Plan: Chronic. Would like to complete upper endoscopy for further evaluation. However, plans to complete at time of colonoscopy. We will continue current management with the addition of breakthrough therapy as below. Medications: Continue omeprazole, consider adding famtoidine for breakthrough symptoms. Education on GERD prevention : -Advised against heavy meals; encouraged small, frequent meals instead of large ones. - Instructed to remain upright for 2?3 hours after eating. - Advised to avoid late-night meals, spicy foods, caffeine, alcohol, known dietary triggers, and tight-fitting clothing. - Emphasis placed on gradual implementation of lifestyle changes to improve adherence and symptom control. (4) Constipation: Code(s): K59.00 - Constipation, unspecified Category: Medical Qualifiers: Constipation type: unspecified constipation type Qualified Code(s): K59.00 - Constipation, unspecified Plan: Suspect drug-induced given Trulicity and amitriptyline on board. We will trial pharmacological management of senna S and fiber tablet. Reinforced lifestyle modifications to promote regularity: -higher fiber diet, examples provided -adequate hydration with water -150 minutes of moderate intensity exercise per week (5) Colon cancer screening: Code(s): Z12.11 - Encounter for screening for malignant neoplasm of colon Category: Medical Plan: Overdue for screening. She is not keen on repeating prep. However, extensive education on importance of screening. We would like constipation to improve given previous difficulty with prep before proceeding. We will discuss further at follow-up. Plan Follow-up in 4 weeks or sooner as needed Time: I spent a total of 45 minutes on the date of encounter which includes: Preparing to see the patient (reviewed previous documentation, test results and medical history) Performing a medically appropriate exam and/or evaluation Ordering medications, tests, and procedures Documenting clinical information in the health record Orders: Orders Complete Blood Count Auto Diff Today R10.13 - Epigastric pain, R74.8 - Abnormal levels of other serum enzymes DALILA Reflex Titer and Pattern Today R10.13 - Epigastric pain, R74.8 - Abnormal levels of other serum enzymes NM hepatobiliary w pharm Today R10.13 - Epigastric pain, R74.8 - Abnormal levels of other serum enzymes Comprehensive Met. Panel Today R10.13 - Epigastric pain, R74.8 - Abnormal levels of other serum enzymes Lipase Today R10.13 - Epigastric pain, R74.8 - Abnormal levels of other serum enzymes Hepatitis A,B,C Profile Today R10.13 - Epigastric pain, R74.8 - Abnormal levels of other serum enzymes Mitochondrial Antibody Today R10.13 - Epigastric pain, R74.8 - Abnormal levels of other serum enzymes Smooth Muscle Antibody Today R10.13 - Epigastric pain, R74.8 - Abnormal levels of other serum enzymes Ferritin Today R10.13 - Epigastric pain, R74.8 - Abnormal levels of other serum enzymes Prothrombin Time INR Today R10.13 - Epigastric pain, R74.8 - Abnormal levels of other serum enzymes Medications: New famotidine Take one tablet as needed for acid reflux 20 mg PO DAILY PRN 90 tabs 1RF GERD sennosides-docusate sodium 8.6-50 mg (Senna Plus) Take two tablets at bedtime 2 tab-caps (2 x 8.6-50 mg) PO BEDTIME 180 caps 1RF methylcellulose (laxative) (Citrucel) 500 mg PO DAILY 90 tabs 1RF Discontinued polyethylene glycol 3350 (Miralax) Take as directed by mouth the day before your procedure. Discontinued Reason: Patient Refused 238 grams PO ONCE 1 day 238 grams 0RF Coding Level of Care Code Established Pt Est Pt Level 4 (19783) Patient Type Established Diagnoses Epigastric pain R10.13 Elevated alkaline phosphatase level R74.8 Gastroesophageal reflux disease, unspecified whether esophagitis present K21.9 Esophagitis presence: esophagitis presence not specified Constipation, unspecified constipation type K59.00 Constipation type: unspecified constipation type Colon cancer screening Z12.11
[2025-04-14 13:46] VITALS: BP 110/69; PULSE 90; O2SAT 97; BMI 26.0
--- OUTSIDE RECORDS SUMMARY | 2025-04-14 14:53 | XMS_ITS | Encounter Summary ---
Author Organization [employer] Address [address] [facility] [place] [address] Care Team Providers Care Coke Wheeler Name Role Phone Elsa Espitia MD Primary Care Provider [phone] Reason for Referral * Consultation (Routine) - Closed Specialty Diagnoses / Procedures Referred By Contac t Referred To Contact Behavioral Health Diagnoses Major depressive disorder, remission status unspecified, unspecified whether recurrent Anxiety Elsa Espitia MD [address] [place] [phone] Phone: tel: fax: Referral ID Status Reason Start Date Expiration Date V isits Requested Visits Authorized [id number] Closed Specialty Services Required 02/12/2025 02/12/2026 1 1 Encounter Details Date Type Department Care Team (Late st Contact Info) Description 02/12/2025 Orders Only [facility] MEDICINE [address] [place] [phone] Elsa Espitia MD [address] [place] [address] [phone] Major depressive disorder, remission status unspecified, unspecified [...] documented as of this encounter Care Teams Coke Wheeler Relationship Specialty Start Date End Date Elsa Espitia MD [address] [place] [address] PCP - General Family Medicine 04/04/19 Kath White Director Medical SurgicalAssistant Vice President 03/06/24 documented as of this encounter
--- OUTSIDE RECORDS SUMMARY | 2025-04-14 14:53 | XMS_ITS | Encounter Summary ---
Author Organization [employer] Address [address] [place] [address] Care Team Providers Care Clerical Adjudicator Name Role Phone Elsa Espitia MD Primary Care Provider [phone] Reason for Visit * Reason Onset Date Comments Referral 06/15/2023 Encounter Details Date Type Department Care Team ([facility] st Contact Info) Description 06/15/[address] [facility] [address] [place], [place] [phone] Elsa Espitia MD [address] [place], [place] [phone] Referral Social History Tobacco Use Types Packs/Day [...] documented as of this encounter Care Teams Clerical Adjudicator Relationship Specialty Start Date End Date Elsa Espitia MD [address] [place] [phone] PCP - General Family Medicine 04/04/19 Kath White Genetic ScientistDirector It Project 03/06/24 documented as of this encounter
--- OUTSIDE RECORDS SUMMARY | 2025-04-14 14:53 | XMS_ITS | Encounter Summary ---
Author Organization [employer] Address [address] [place] [address] Care Team Providers Care Unemployment Specialist Name Role Phone Elsa Espitia MD Primary Care Provider [phone] Reason for Visit * Reason Onset Date Comments Medication Question 07/22/2024 Encounter Details Date Type Department Care Team ([facility] st Contact Info) Description 07/22/2024 Telephone [facility] MEDICINE [address] [place], [place] [phone] Elsa Espitia MD [address] [place], [place] [phone] Medication Question Social History Tobacco Use Types [...] EDT TC placed to pt with a [place] police [employer] precinct to inquire which prescription pt needs a refill on. Per pt, the insulin pen needle (Pentips) 32G X 4 mm is needed. Medication queued to PCP for review * Telephone Encounter - Angel Gallo - 07/22/2024 1:44 PM EDT Tc from pt requesting needles for checking blood sugar. If any questions you can contact pt at [phone]. (Tristanian Speaker) documented in this encounter Plan of Treatment Not on file documented as of this encounter Visit Diagnoses Not on filedocumented in this encounter Additional Health Concerns Assessment Noted Time PHQ-9 Depression Total Score: 0 06/01/20 23 10:46 AM EDT documented as of this encounter Care Teams Unemployment Specialist Relationship Specialty Start Date End Date Elsa Espitia MD [address] [place] [address] PCP - General Family Medicine 04/04/19 Kath White Air And Water TesterTire And Tube Repairer 03/06/24 documented as of this encounter
--- OUTSIDE RECORDS SUMMARY | 2025-04-14 14:53 | XMS_ITS | Encounter Summary ---
Author Organization [employer] Address [address] [place] [address] Care Team Providers Care Sales Representative [employer] Name Role Phone Elsa Espitia MD Primary Care Provider [phone] Reason for Visit * Reason Comments Med Refill Encounter Details Date Type Department Care Team ([facility] st Contact Info) Description 09/27/2023 Refill [facility] MEDICINE [address] [place], [place] [phone] Curt Carnes MD [address] [place], [place] [phone] Gastroesophageal reflux disease, unspecified whether esophagitis present [...] documented as of this encounter Care Teams Sales Representative [employer] Relationship Specialty Start Date End Date Elsa Espitia MD [address] [place] [id number] PCP - General Family Medicine 04/04/19 Kath White Aco CoordinatorEdge Bander Hand 03/06/24 documented as of this encounter
--- OUTSIDE RECORDS SUMMARY | 2025-04-14 14:53 | XMS_ITS | Encounter Summary ---
Author Organization [facility] [employer] [facility] Address [address] [place] [address] Care Team Providers Care Car Sales Consultant Name Role Phone Elsa Espitia MD Primary Care Provider [phone] Encounter Details Date Type Department Care Team ([facility] st Contact Info) Description 04/06/2025 Orders Only [facility] MEDICINE [address] [place] [address] Elsa Espitia MD [address] [place], [place] [phone] Social History Tobacco Use Types Packs/Day Years [...] Procedure Name Priority Date/Time Associated Diagnosis Comments BI MAMMOGRAM SCREENING TOMOSYNTHESIS BILATERAL Routine 04/06/2025 12:15 PM EDT documented in this encounter Results * BI Mammogram Screening Tomosynthesis Bilateral (04/06/2025 12:15 PM EDT) Anatomical Region Laterality Modality Breast Bilateral Mammography 04/06/2025 12:1 5 PM EDT Narrative 04/12/2025 5:29 PM EDT ? [facility] [place] ? [address] ?[place] [address] ?[phone] ? Mammography Report ? Signed ? Patient: Thiago Das,Lakshmi ? MR#: [id number] ? : 1965 ?Acct:[id number] ? Age/Sex: 59 / F ?ADM Date: 05/12/25 ? Loc: HO.MAMMO ? Attending Dr: Elsa Espitia MD ? Ordering Physician: Elsa Espitia MD ?Results: 1Negative ? Date of Service: 04/06/25 ?Follow Up: 1 Year From Orig ?? inal Mammogram ? Procedure(s): MM tomosynthesis screening BI ?? Accession Number(s): [id number] ? cc: Elsa Espitia MD ? EXAMINATION: ?? MM SCREENING DIGITAL BREAST TOMOSYNTHESIS, BILATERAL ? CLINICAL INFORMATION: ? Screening. Asymptomatic. ? COMPARISON: ?? Mammography: Comparison is made with available priors ? TECHNIQUE: ?? Digital breast mammography with tomosynthesis is performed in both the ?? craniocaudal and mediolateral oblique views along with computer-aided ?? detection (CAD). ? FINDINGS: ?? There are scattered areas [...] due date for their next mammogram. ? Electronically signed by: ??Arleen Rizvi DO ??04/12/2025 05:27 PM EDT ?? RP ? Dictated By: ?Arleen Rizvi DO ? Signed By: ?<Electronically signed by Arleen Rizvi, DO in OV> ? 04/12/25 1727 ? DD/ 1215 ? TD/TT: 04/06/25 1231 ? Laborer Rags: ? Procedure Note Donotuseinterpreter, Image - 04/13/2025 [facility] [address] [place], [place] [address] Mammography Report Signed Patient: Lakshmi Avalos MR#: [id number] : 1965Acct:[id number] Age/Sex: 59 / FADM Date: 04/06/25 Loc: HO.MAMMO Attending Dr: Elsa Espitia MD Ordering Physician: Elsa Espitia MDResults: 1Negative Date of Service: 04/06/25Follow Up: 1 Year From Orig inal Mammogram Procedure(s): MM tomosynthesis screening BI Accession Number(s): [id number] cc: Elsa Espitia MD EXAMINATION: MM SCREENING DIGITAL BREAST TOMOSYNTHESIS, BILATERAL CLINICAL INFORMATION: Screening. Asymptomatic. COMPARISON: Mammography: Comparison is made with available priors TECHNIQUE: Digital breast mammography with tomosynthesis is performed in both the craniocaudal and mediolateral oblique views along with computer-aided detection (CAD). FINDINGS: There are scattered areas of fibroglandular [...] target due date for their next mammogram. Electronically signed by: Arleen Rizvi DO 04/12/2025 05:27 PM EDT Dictated By: Arleen Rizvi DO Signed By: <Electronically signed by Arleen Rizvi DO in OV> 04/12/25 3434 DD/ 1215 TD/TT: 04/06/25 1231 Laborer Rags: Elsa Espitia MD IMG BI PROCEDURES Edited Result - Final documented in this encounter Visit Diagnoses Not on filedocumented in this encounter Additional Health Concerns Assessment Noted Time PHQ-9 Depression Total Score: 0 09/18/20 10:38 AM EDT documented as of this encounter Care Teams Car Sales Consultant Relationship Specialty Start Date End Date Elsa Espitia MD [address] [place] [phone] PCP - General Family Medicine 04/04/19 Kath White Fish CulturistService Clerk 03/06/24 documented as of this encounter
--- OUTSIDE RECORDS SUMMARY | 2025-04-14 14:53 | XMS_ITS | Clinical Summary ---
Author Organization [facility] Address [address] [address] Care Team Providers Care Scrap Handler Name Role Phone Elsa Espitia MD Primary Care Provider [phone] Social History Tobacco Use Types Packs/Day Years [...] Insurance Medicaid [place] Medicaid [place] Care Teams Scrap Handler Relationship Specialty Start Date End Date Elsa Espitia MD PCP - General Family Medicine 03/20/22
--- OUTSIDE RECORDS SUMMARY | 2025-04-14 14:53 | XMS_ITS | Clinical Summary ---
Author Organization [employer] Address [address] [facility] [address] [place] [address] Care Team Providers Care Feller Seam Operator Name Role Phone Elsa Espitia MD Primary Care Provider [phone] Allergies Active Allergy Reactions Criticality Noted Date [...] TAKE 1 PUFF BY MOUTH EVERY DAY 024 Active lisinopril 2.5 MG tablet TAKE 1 [...] MEALS AND AT BEDTIME 120 tablet 3 Active melatonin 3 MG tablet TAKE 1 TO 2 TABLETS BY MOUTH 2 HOURS BEFORE BEDTIME NEEDED FOR SLEEP 60 tablet 3 Active famotidine (Pepcid) 20 MG tablet TAKE 1 TABLET BY MOUTH AT BEDTIME 90 tablet 3 Active Farxiga 10 MG TAKE 1 TABLET BY MOUTH EVERY MORNING 90 tablet Active atorvastatin (Lipitor) 20 MG tablet TAKE 1 TABLET BY MOUTH AT BEDTIME 90 tablet 3 Active cloNIDine (Catapres) 0.1 MG tablet TAKE 1 TABLET BY MOUTH AT BEDTIME 90 tablet 3 Active Ferrous Sulfate (iron) 325 (65 Fe) MG tablet TAKE 1 TABLET BY MOUTH TWICE DAILY IN THE MORNING AND IN THE EVENING WITH ORANGE JUICE 180 tablet 3 Active metoprolol tartrate (Lopressor) 50 MG tablet TAKE 1 TABLET BY MOUTH TWICE DAILY IN THE MORNING AND IN THE EVENING WITH MEALS 180 tablet 3 Active Oyster Shell Calcium 500 MG tabletIndicatio ns:Other specified personal risk factors, not elsewhere classified TAKE 1 TABLET BY MOUTH TWICE DAILY IN THE MORNING AND IN THE EVENING 180 tablet 2 Active Pentips Generic Pen [place] 32G X 4 MM misc USE ONCE DAILY DIRECTED 100 each 3 Active cyanocobalamin (Vitamin B-12) 1000 MCG tablet TAKE 1 TABLET BY MOUTH EVERY MORNING 90 tablet 3 Active ergocalciferol (Vitamin D2) 1.25 MG (39885 UT) capsuleIndicati ons:Vitamin D deficiency TAKE 1 CAPSULE BY MOUTH ONCE WEEKLY ON SUNDAY MORNING 12 capsule 1 Active traMADol (Ultram) 50 [...] A DAY 100 each 11 025 Active FREESTYLE LITE test strip Check blood glucose three times daily and as needed 100 strip 11 025 Active gabapentin (Neurontin) 300 MG capsule TAKE 1 CAPSULE BY MOUTH AT BEDTIME. MAY INCREASE TO 2 CAPSULES AT BEDTIME AFTER 1 WEEK. 60 capsule 11 025 Active amitriptyline (Elavil) 50 MG tabletIndicatio ns:Depression, unspecified depression type,Insomnia, unspecified type,Chronic pain due to trauma Take 1 tablet (50 mg) by mouth at bedtime. 30 tablet 025 Active diphenhydrAMINE (Dacia-Dryl) 25 MG tabletIndicatio [...] MOUTH AT BEDTIME 30 tablet 025 Active FREESTYLE LITE test strip TEST BLOOD SUGAR TWICE DAILY 100 strip 11 023 2024 Discontinued(R eorder (will not trigger notification to Pharmacy)) insulin pen needle (Pentips) 32G x 4 mm misc USE DAILY WITH INSULIN 100 each 3 024 2024 Discontinued(R eorder (will not trigger notification to Pharmacy)) gabapentin (Neurontin) 300 MG capsule TAKE 1 CAPSULE BY MOUTH AT BEDTIME. MAY INCREASE TO 2 CAPSULES AT BEDTIME AFTER DE 1 WEEK 60 capsule 11 024 2024 Discontinued cyanocobalamin (Vitamin B-12) 1000 MCG tablet TAKE [...] AND IN THE EVENING 180 tablet 2 2024 Discontinued ergocalciferol (Vitamin D2) 1.25 MG (71042 UT) capsuleIndicati ons:Vitamin D deficiency TAKE 1 CAPSULE BY MOUTH ONCE WEEKLY ON SUNDAY MORNING 12 capsule 1 2024 Discontinued Continuous Glucose Director Of Brand Marketing (FreeStyle Teja 2 [place]) device Scan sensor every 8 hours 1 each 2024 Discontinued(O ther) Continuous Glucose Sensor (FreeStyle Teja 2 Sensor) [facility] [place] 1 sensor every 14 days 2 each 11 024 2024 Discontinued(O ther) glucose blood (FreeStyle Precision Joaquim Test) test strip Use to test blood sugar 3 times daily and as needed 100 each 11 024 2024 Discontinued(P atient refused) TRUEplus Lancets 33G [facility] [place] BLOOD SUGAR TWICE A DAY 100 each 11 025 2024 Discontinued(R eorder (will not trigger notification to Pharmacy)) traMADol (Ultram) 50 MG tabletIndicatio ns:Chronic low back pain, unspecified back pain laterality, unspecified whether sciatica present Take 1 tablet (50 mg) by mouth every 8 (eight) hours. 30 tablet 025 2024 Discontinued(R eorder (will not trigger notification to Pharmacy)) diphenhydrAMINE (Dacia-Dryl) 25 MG tabletIndicatio ns:Allergic reaction, subsequent encounter TAKE 1 OR 2 TABLETS BY MOUTH AT BEDTIME IF NEEDED FOR ITCHING OR FOR ALLERGIES 60 tablet 025 2024 Discontinued(R eorder (will not trigger notification to Pharmacy)) hydrOXYzine pamoate (Vistaril) 25 MG capsule TAKE 1 CAPSULE BY MOUTH AT BEDTIME 30 capsule 025 2024 Discontinued(R eorder (will not trigger notification to Pharmacy)) traZODone (Desyrel) 50 MG tablet TAKE 1 TABLET BY MOUTH AT BEDTIME 30 tablet 025 2024 Discontinued(R eorder (will not trigger notification to Pharmacy)) amitriptyline (Elavil) 50 MG tabletIndicatio ns:Depression, unspecified depression type,Insomnia, unspecified type,Chronic pain due to trauma TAKE 1 TABLET BY MOUTH AT BEDTIME 30 tablet 025 2024 Discontinued(R eorder (will not trigger notification to Pharmacy)) Active Problems Problem Noted Date Diagnosed Date Chronic liver disease 12/29/2024 Assessment & Plan (03/31/2025 12:56 PM EDT): - following with [facility] - hepatomegaly noted on US - likely MASLD - work on healthy diet - upcoming appointment for CT scan Assessment & Plan (12/29/2024 11:02 PM EST): - following with [facility] - hepatomegaly noted on US - [...] & Plan (03/31/2025 1:09 PM EDT): -current [facility] provider: [facility] -current medications: clonidine; hydroxyzine; sertraline; amitriptyline -will add trazodone 50mg at bed time for insomnia -hydroxyzine was decreased due to prolonged QT -she was able to contract her safety today Assessment & Plan (09/18/2024 12:31 PM EDT): -current [facility] provider: [facility] -current medications: clonidine; hydroxyzine; sertraline; amitriptyline -will add trazodone 50mg at bed time for insomnia -hydroxyzine was decreased due to prolonged QT -she was able to contract her safety today Assessment & Plan (02/08/2024 5:53 PM EDT): -current [facility] provider: [facility] -current medications: clonidine; hydroxyzine; sertraline; amitriptyline -hydroxyzine was decreased due to prolonged QT -she was able to contract her safety today Assessment & Plan (07/21/2023 7:09 AM EDT): -current [facility] provider: [facility] -current medications: clonidine; hydroxyzine; sertraline; amitriptyline -hydroxyzine was decreased due to prolonged QT -she was able to contract her safety today Assessment & Plan (04/05/2023 6:21 PM EDT): -current [facility] provider: [facility] -current medications: clonidine; hydroxyzine; sertraline; amitriptyline -incease amitriptyline to 50 mg qhs for insomnia -she was able to contract her safety today Chronic pain of right knee 04/05/2023 Assessment & Plan (04/06/2025 9:09 AM EDT): -s/p right knee arthroscopy and partial lateral meniscectomy [place] [address] Cole -Seen by [facility] in Aug 2019 -Waiting for hyaluronate [...] Nov [address] Cole -Seen by [facility] in Aug 2019 -Waiting for hyaluronate [...] Nov [address] Cole -Seen by [facility] in Aug 2019 -Waiting for hyaluronate [...] Nov [address] Cole -Seen by [facility] in Aug 2019 -Waiting for hyaluronate [...] Nov [address] Cole -Seen by [facility] in Aug 2019 -Waiting for hyaluronate [...] Nov [address] Cole -Seen by [facility] in Aug 2019 -Waiting for hyaluronate [...] tunnel release surgery; patient was seen for flour mixer for clearance. Patient states she has not [...] 12:56 PM EDT): Pt is following w/ coke drawer, last seen on 11/18/23. -Last exacerbation in February 2022, acute respiratory failure with pneumonia, hospitalized in [facility] -Maintenance medication: fluticasone furonate / vilanterol (Breo) and umeclidinium (Incruse) -Treatment Hx: Previously Alvesco and budesonide / formoterol (Symbicort) -Rescue medication: albuterol HFA and nebulizer -Congratulated on smoking cessation effort, encourage to continue Assessment & Plan (12/29/2024 11:00 PM EST): Pt is following w/ coke drawer, last seen on 11/18/23. -Last exacerbation in February 2022, acute respiratory failure with pneumonia, hospitalized in [facility] -Maintenance medication: fluticasone furonate / vilanterol (Breo) and umeclidinium (Incruse) -Treatment Hx: Previously Alvesco and budesonide / formoterol (Symbicort) -Rescue medication: albuterol HFA and nebulizer -Congratulated on smoking cessation effort, encourage to continue Assessment & Plan (09/18/2024 12:28 PM EDT): Pt is following w/ coke drawer, last seen on 11/18/23. -Last exacerbation in February 2022, acute respiratory failure with pneumonia, hospitalized in [facility] -Maintenance medication: fluticasone furonate / vilanterol (Breo) and umeclidinium (Incruse) -Treatment Hx: Previously Alvesco and budesonide / formoterol (Symbicort) -Rescue medication: albuterol HFA and nebulizer -Congratulated on smoking cessation effort, encourage to continue Assessment & Plan (02/08/2024 5:58 PM EDT): Pt is following w/ coke drawer, last seen on 11/18/23. -Last exacerbation in February 2022, acute respiratory failure with pneumonia, hospitalized in [facility] -Maintenance medication: fluticasone furonate / vilanterol (Breo) and umeclidinium (Incruse) -Treatment Hx: Previously Alvesco and budesonide / formoterol (Symbicort) -Rescue medication: albuterol HFA and nebulizer -Congratulated on smoking cessation effort, encourage to continue Assessment & Plan (07/21/2023 6:58 AM EDT): Pt is following w/ coke drawer, last seen on 05/25/22. -Last exacerbation in February 2022, acute respiratory failure with pneumonia, hospitalized in [facility] -Maintenance medication: Symbicort -Treatment Hx: Previously Alvesco -Rescue medication: albuterol HFA and nebulizer -Congratulated on smoking cessation effort, encourage to continue Assessment & Plan (04/05/2023 6:11 PM EDT): Pt is following w/ coke drawer, last seen on 05/25/22. -Last exacerbation in February 2022, acute respiratory failure with pneumonia, hospitalized in [facility] -Maintenance medication: Previously Alvesco, but she has not had one for a while. Start Symbicort. -Rescue medication: albuterol HFA and nebulizer -Congratulated on smoking cessation effort, encourage to continue Assessment & Plan (02/20/2023 5:31 AM EDT): Pt is following w/ coke drawer, last seen on 05/25/22. -Last exacerbation in February 2022, acute respiratory failure with pneumonia, hospitalized in [facility] -Maintenance medication: Symbicort -Rescue medication: albuterol HFA [...] - Evaluated by both pain management and grievance and appeals specialist, recommending injection treatment which patient no longer desires. - Currently prescribed lidocaine patch, gabapentin (for both chronic pain of knee, carpal tunnel syndrome, and chronic back pain), and tramadol. - Reviewed judicious use of medications. -Referred to a grievance and appeals specialist; consider referring her to community service technician - Patient declined injection treatment referral again [...] - Evaluated by both pain management and grievance and appeals specialist, recommending injection treatment which patient no longer desires. - Currently prescribed lidocaine patch, gabapentin (for both chronic pain of knee, carpal tunnel syndrome, and chronic back pain), and tramadol. - Reviewed judicious use of medications. -Referred to a grievance and appeals specialist; consider referring her to community service technician - Patient declined injection treatment referral again [...] - Rx Lidoderm Patch -Referred to a grievance and appeals specialist in Sep 2022 Assessment & Plan [...] - Rx Lidoderm Patch -Referred to a grievance and appeals specialist; consider referring her to community service technician Assessment & Plan (09/21/2024 5:28 AM EDT): [...] - Evaluated by both pain management and grievance and appeals specialist, recommending injection treatment which patient no longer desires. - Currently prescribed lidocaine patch, gabapentin (for both chronic pain of knee, carpal tunnel syndrome, and chronic back pain), and tramadol. - Reviewed judicious use of medications. -Referred to a grievance and appeals specialist; consider referring her to community service technician - Patient declined injection treatment referral again [...] Nov [address] Cole -Seen by [facility] ortho in Aug 2019 -Waiting for hyaluronate [...] w QTC prolongation( hydroxyzine) -referred today to flour mixer to further eval QTC prolongation -I called today her previous flour mixer who was not concern w prolongation for surgery but last eval pt 2 years ago -I would rather have a new evaluation to confirm there are no cardiac risk associated for this nor urgent surgery.-requested referral to patent law specialist to be done as soon as [...] organization. Date Type Department Care Team Description 04/07/2025 Refill [facility] [address] [place] [phone] Curt Carnes MD Depression, unspecified depression type; Insomnia, unspecified type; Chronic pain due to trauma 04/07/2025 Refill [facility] [address] [place] [address] Nadja Shaffer, KALINA Allergic reaction, subsequent encounter 04/07/2025 Refill [facility] [address] [place] [address] Elsa Espitia MD Depression, unspecified depression type; Insomnia, unspecified type; Chronic pain due to trauma; Allergic reaction, subsequent encounter 04/06/2025 Orders Only [facility] [address] [place] [address] Elsa Espitia MD 03/31/2025 1:00 PM EDT Office Visit [facility] [address] [place] [phone] Elsa Espitia MD Asthma with COPD (CMS/HCC) (Primary Dx); Essential hypertension; Chronic liver disease; Type 2 diabetes mellitus with stage 3b chronic kidney disease, with long-term current use of insulin ([facility]); Type 2 diabetes mellitus with stage 3 chronic kidney disease, with long-term current use of insulin, unspecified whether stage 3a or 3b CKD ([facility]); Dyslipidemia; Major depressive disorder, remission status unspecified, unspecified whether recurrent; Chronic low back pain, unspecified back pain laterality, unspecified whether sciatica present; Chest pain, unspecified type; Chronic pain of right knee; Pain in right leg; Stage 3a chronic kidney disease ([facility]) 03/31/2025 Travel 03/31/2025 Refill [facility] [address] [place] [address] Elsa Espitia MD Other specified personal risk factors, not elsewhere classified; Vitamin D deficiency 03/27/2025 Telephone [facility] [address] [place] [address] Elsa Espitia MD chartprep 03/12/2025 Refill [facility] [address] [place] [address] Natalie Flores MD Depression, unspecified depression type; Insomnia, unspecified type; Chronic pain due to trauma 03/04/2025 Refill [facility] [address] [place] [address] Natalie Flores MD 03/04/2025 Refill [facility] [address] [place] [phone] Nadja Shaffer FNP Allergic reaction, subsequent encounter 02/12/2025 Orders Only [facility] [address] [place] [address] Elsa Espitia MD Major depressive disorder, remission status unspecified, unspecified whether recurrent (Primary Dx); Anxiety 02/11/2025 Telephone [facility] [address] [place] [address] Elsa Espitia MD Behavioral Health Request 02/09/2025 Refill [facility] [address] [place] [phone] Elsa Espitia MD 02/06/2025 Population Health Risk Score Community [facility] () [address] [phone] Provider, Population Health Generic from Last 3 Months Immunizations Immunization Administration Dates Next Due Hep A / [...] 1966 FIT 1966 FOBT 1966 Sigmoidoscopy 1966 Disability Screening 1966 Pap Smear 1987 HPV/Cotest 1996 Hepatitis [...] 03/26, 06/27/2022, Additional history exists Tobacco Screening 03/31/2026 03/31/2025 DTaP/Tdap/Td Vaccines (3 - Td or Tdap) 05/17/2026 05/17/2016, 09/25/2012, 08/11/2009 Eye Exam 10/27/2026 10/27/2024, 12/2023, 10/27/2024, Additional history exists Mammogram 04/06/2027 04/06/2025, 0411/2023, 05/04/2022, Additional history exists RSV Patients and Patients [...] patient's age to complete this topic Meningococcal B Vaccine Aged Out No l onger eligible based on patient's age to complete [...] TOMOSYNTHESIS BILATERAL Routine 04/06/2025 12:15 PM EDT POCT GLYCATED HEMOGLOBIN, TOTAL Routine 03/31/2025 1:26 [...] Recently Relevant to Health Maintenance Results * BI Mammogram Screening Tomosynthesis Bilateral (04/06/2025 12:15 PM EDT) Anatomical Region Laterality Modality Breast Bilateral Mammography 04/06/2025 12:1 5 PM EDT Narrative 04/12/2025 5:29 PM EDT ? [facility] ? [address] ?[place] [address] ?[phone] ? Mammography Report ? Signed ? Patient: Robbie,Lakshmi ? MR#: [id number] ? : 1965 ?Acct:[id number] ? Age/Sex: 59 / F ?ADM Date: 05/12/25 ? Loc: HO.MAMMO ? Attending Dr: Elsa Espitia MD ? Ordering Physician: Elsa Espitia MD ?Results: 1Negative ? Date of Service: 04/06/25 ?Follow Up: 1 Year From Orig ?? inal Mammogram ? Procedure(s): MM tomosynthesis screening BI ?? Accession Number(s): [id number] ? cc: Elsa Espitia MD ? EXAMINATION: [...] Arleen Rizvi, DO in OV> ? 04/12/25 172 ? DD/ 1215 ? TD/TT: 04/06/25 1231 ? Wind Tunnel Technician: ? Procedure Note Donotlennyinterpreter, Image - 04/13/2025 [facility] [address] [place] [address] Mammography Report Signed Patient: Lakshmi Avalos MR#: [id number] : 1965Acct:[id number] Age/Sex: 59 / FADM Date: 04/06/25 Loc: [facility] Attending Dr: Elsa Espitia MD Ordering Physician: Elsa Espitia MDResults: 1Negative Date of Service: 04/06/25Follow Up: 1 Year From Orig inal Mammogram Procedure(s): MM tomosynthesis screening BI Accession Number(s): [id number] cc: Elsa Espitia MD EXAMINATION: MM SCREENING [...] Arleen Rizvi DO 04/12/2025 05:27 PM EDT RP Dictated By: Arleen Rizvi DO Signed By: <Electronically signed by Arleen Rizvi DO in OV> 04/12/25 1727 DD/ 1215 TD/TT: 04/06/25 1231 Wind Tunnel Technician: Elsa Espitia MD IMG BI PROCEDURES Edited Result - Final * (ABNORMAL) POCT HGB A1C (03/31/2025 1:26 PM EDT) Hemoglobin A1C 7.1(A) 4.0 - 6.0 % QC Media Lot # [id number] Lot# Expiration Date Blood 03/31/2025 1:26 PM EDT Elsa Espitia MD POINT OF [...] 2:54 PM EST) Triglycerides 263(H) <150 mg/dL [facility] Comment:Desirable Triglyceri de: less than 150 mg/dLBorderline High Triglyceride 150-199 mg/dLHigh Triglyceride: 200-499 mg/dLVery High Triglyceride: greater than or equal to 5OO mg/dL Cholesterol 174 <200 mg/dL [facility] Comment:Desirable Cholestero l: less than 200 mg/dLBorderline High Cholesterol: 200-239 mg/dLHigh Cholesterol: greater than 239 mg/dL LDL Cholesterol Calculated 79 <100 mg/dL [facility] Comment:Desirable LDL: less than 100 mg/dLNear Optimal/Above Optimal LDL: 110- 129 mg/dLBorderline High LDL: 130-159 mg/dLHigh LDL: 160-189 mg/dLVery High LDL: greater than or equal to 190 mg/dL HDL Cholesterol 43 >40 mg/dL [facility] Comment:Desirable HDL: great er than 40 mg/dL Note: This HDL assay may give artificially low results in patients with liver disease. Blood 12/23/2024 2:54 PM EST 12/26/2024 9:18 AM EST Elsa Espitia MD LAB BLOOD ORDERABLES Final Resul t Performing Organization Address City/[facility] Co de Phone Number [facility] [address] [place] [phone] * HEPATITIS C AB W/REFL TO HCV RNA, QN, PCR (03/30/2021 9:31 AM EDT) HEPATITIS C ANTIBODY NON-REACT ANA NON-REACT ANA [facility] INDEX 0.01 <1.00 [facility] Comment: ?? HCV antibody was non-reactive. There is no laboratory ?? evidence of HCV infection. ?? In most cases, no further action is required. However, if recent HCV exposure is suspected, a test for HCV RNA (test code 82896) is suggested. ?? For additional information please refer to http://education.[employer]OREM.[employer]/faq/YBZ80n5 (This link is being provided for informational/ educational purposes only.) ?? 03/30/2021 9:31 AM EDT Elsa Espitia MD HISTORICAL/NON ORDERABLE LABS Fi nal Result Performing Organization Address City/[facility]/ZIP Co de Phone Number [facility] [address] * HIV 1/2 ANTIGEN/ANTIBODY,FOURTH GENERATION W/RFL (03/30/2021 9:31 AM EDT) HIV-1/2 ANTIGEN AND ANTIBODIES, 4TH GENERATION W/ REFLEX NON-REACT ANA NON-REACT ANA [facility] Comment: HIV-1 antigen and HIV-1/HIV-2 [...] ? For additional information please refer to http://Spotwise.WigWag/faq/IVT317 (This link is being provided for informational/ educational purposes only.) ? The performance of this assay has not been clinically validated in patients less than 2 years old. ?? 03/30/2021 9:31 AM EDT us Elsa Espitia MD LAB BLOOD ORDERABLES Final Resul t Performing Organization Address City/State/[facility] Co de Phone Number [facility] [address] from Last 3 Months or Most Recently Relevant to Health Maintenance Insurance [facility] C3 HSN FULL Care Teams Feller Seam Operator Relationship Specialty Start Date End Date Elsa Espitia MD [address] [place] [phone] PCP - General Family Medicine 04/04/19 Kath White Rabbit DresserNewscast Producer 03/06/24
--- OUTSIDE RECORDS SUMMARY | 2025-04-14 14:53 | XMS_ITS | Encounter Summary ---
Author Organization [employer] Address [address] [facility] [facility] [address] [place] [address] Care Team Providers Care Tool And Die Inspector Name Role Phone Elsa Espitia MD Primary Care Provider [phone] Reason for Visit * Reason Onset Date Comments Med Refill 07/22/2024 Encounter Details Date Type Department Care Team ([facility] st Contact Info) Description 07/22/2024 Telephone [facility] [address] [place], [place] [phone] Elsa Espitia MD [address] [place], [place] [phone] Med Refill Social History Tobacco Use Types [...] 50 MG tablet To be sent to: [facility] Pharmacy documented in this encounter Plan of Treatment Not on file documented as of this encounter Visit Diagnoses Not on filedocumented in this encounter Additional Health Concerns Assessment Noted Time PHQ-9 Depression Total Score: 0 06/01/20 23 10:46 AM EDT documented as of this encounter Care Teams Tool And Die Inspector Relationship Specialty Start Date End Date Elsa Espitia MD [address] [place] [address] PCP - General Family Medicine 04/04/19 Kath White Hand SalterLaw Tutor 03/06/24 documented as of this encounter
--- OUTSIDE RECORDS SUMMARY | 2025-04-14 14:53 | XMS_ITS | Encounter Summary ---
Author Organization [employer] Address [address] [facility] [place] [address] Care Team Providers Care Circuit Breaker Mechanic Name Role Phone Elsa Espitia MD Primary Care Provider [phone] Reason for Visit * Reason Comments Med Refill Encounter Details Date Type Department Care Team ([facility] st Contact Info) Description 10/29/2024 Refill [facility] [address] [place], [place] [phone] Elsa Espitia MD [address] [place], [place] [phone] Chronic low back pain, unspecified back pain [...] documented as of this encounter Care Teams Circuit Breaker Mechanic Relationship Specialty Start Date End Date Elsa Espitia MD [address] [place] [address] PCP - General Family Medicine 04/04/19 Kath White Manager MulticulturalClient Delivery Manager 03/06/24 documented as of this encounter
--- OUTSIDE RECORDS SUMMARY | 2025-04-14 14:53 | XMS_ITS | Encounter Summary ---
Author Organization [employer] Address [address] [facility] [address] [place] [address] Care Team Providers Care Tmd Teacher Assistant Name Role Phone Elsa Espitia MD Primary Care Provider [phone] Encounter Details Date Type Department Care Team ([facility] st Contact Info) Description 07/22/2024 Orders Only [facility] [address] [place], [place] [phone] Elsa Espitia MD [address] [place], [place] [phone] Social History Tobacco Use Types Packs/Day Years [...] t he electric, gas, oil or water Robin threatened to shut off services in your [...] documented as of this encounter Care Teams Tmd Teacher Assistant Relationship Specialty Start Date End Date Elsa Espitia MD [address] [place] [address] PCP - General Family Medicine 04/04/19 Kath White Russian Language ProfessorScript Developer 03/06/24 documented as of this encounter
== END 2025-04-14 14:40 | disposition home or self-care (01) ==
LOC: HO.HGI 13:41
PROVIDERS: PCP Family Medicine; Visit Provider Nurse Practitioner Family
DX: R10.13 Epigastric pain (principal); R74.8 Abnormal levels of other serum enzymes; K21.9 Gastro-esophageal reflux disease without esophagitis; K59.00 Constipation, unspecified
CPT/HCPCS: 99214

== ENCOUNTER → 2025-04-14 13:40 | Outpatient (BNVA) | payer MEDICAID, SELFPAY | PROVIDERS: PCP Family Medicine; Visit Provider Nurse Practitioner Family | DX: K21.9 Gastro-esophageal reflux disease without esophagitis (principal); R10.13 Epigastric pain; R74.8 Abnormal levels of other serum enzymes; K59.00 Constipation, unspecified | CPT/HCPCS: 99212 ==

== ENCOUNTER 2025-04-17 10:30 | Outpatient (AMB) | payer MEDICAID, SELFPAY ==
--- OUTSIDE RECORDS SUMMARY | 2025-04-17 10:36 | XMS_ITS | Clinical Summary ---
Author Organization [facility] Address [address] [address] Care Team Providers Care Accounting Associate Name Role Phone Elsa Espitia MD Primary Care Provider [phone] Social History Tobacco Use Types Packs/Day Years [...] Insurance Medicaid [place] Care Teams Accounting Associate Relationship Specialty Start Date End Date Elsa Espitia MD PCP - General Family Medicine 03/20/22
--- NOTE | 2025-04-17 10:41 | HO.NEPHOV ---
Vital Signs 04/17/25 10:42 Height 5 ft 2 in Weight 143 lb BMI 26.2 BP 110/74 Blood Pressure Location Rt brachial Position Sitting Pulse 92 Pulse Source Pulse Oximeter Pulse Oximetry (%) 95 Oxygen Delivery Method Room Air Intake Visit Reasons: ENP: CKD/ Conf Feather Curling Machine Operator Required: Yes Feather Curling Machine Operator Name: [id number] Drew Accompanied by: Self / Same As Patient Allergies aspirin [Aspirin] Allergy (Intermediate, Verified 04/17/25 10:44) EYES SWELLING Penicillins Allergy (Intermediate, Verified 04/17/25 10:44) RASH citalopram Allergy (Unknown, Verified 04/17/25 10:44) chest pain Diltiazem HCl Allergy (Unknown, Uncoded 03/20/25 13:09) Unknown HPI Comments Details: 59-year-old lady with past medical history of hypertension, diabetes mellitus, COPD with CKD stage 3 is here to establish care Her blood pressures are very well controlled on lisinopril and clonidine along with metoprolol 50 mg b.i.d. Her blood sugars are well-controlled 2, HbA1c 7.1 on insulin Lantus, Trulicity and Farxiga She has a history of renal stone but not sure which side, CT abdomen and pelvis showed atrophic left kidney She complains of pain in the right flank, dull aching, no exacerbating or relieving factors, going on for some time now, pain not worse with urination. [facility] Medical History (Updated 04/17/25 @ 11:06 by Alexey Jack MD) Former smoker Colon cancer screening Gallbladder polyp Elevated AFP Pleural effusion Bronchopneumonia Diabetes THANH (acute kidney injury) Acute respiratory failure with hypoxia Pneumonia Asthma with acute exacerbation Asthma On beta mariaelena at home Hx of renal calculi Right knee injury Acute anxiety Depression GERD (gastroesophageal reflux disease) HTN (hypertension) Diabetic acidosis, type II Arthritis Surgical History History of hysterectomy Hx of arthroscopy of right knee Hx of cystoscopy Family History (Updated 04/14/25 @ 14:33 by Tiana Betancourt CNP) Father No problems noted. Mother No problems noted. Maternal Grandmother Cancer Other No family history of coronary artery disease Social History Household Members: None Housing: Apartment Alcohol intake: current Alcohol intake frequency: holidays/special occasions only Patient Tobacco Use Status: Former Tobacco user Years Smoked: 20 +/- Second Hand Smoke Exposure: No service: No Current occupational status: disabled Current occupation: right hand dominant Review of Systems Const Details: Const Denies body aches, Denies chills, Denies excessive sweating and Denies fatigue Eyes Denies blurry vision and Denies change in vision ENT Denies bleeding gums and Denies change in voice Card Denies chest pain and Denies leg ulcers Resp Denies cough and Denies excessive phlegm production GI Denies abdominal pain and Denies bloating Denies hematuria, Denies urinary frequency and Denies difficulty voiding Musc Denies abnormal gait Neuro Denies Neuro-related abnormal movements, Denies abnormal gait and Denies behavioral changes Psych Denies behavioral changes and Denies change in appetite Endo Denies change in body appearance, Denies cold intolerance, Denies excessive sweating and Denies fatigue Physical Exam General: Not in any acute distress, comfortable, sitting on the chair Nutritional Appearance: well nourished and overweight Eyes: appearance normal, both eyes and all related structures; Alignment and Position: alignment normal and position normal Neck: No lymphadenopathy, no thyromegaly Resp: bilateral air entry equal, no added sounds present Cardio: Regular rate, regular rhythm; Heart sounds: S1 normal heart sound present and S2 normal heart sound present, no edema GI: soft, nontender, no guarding, no hepatosplenomegaly : bladder normal to inspection, bladder normal to palpation, no renal angle tenderness Skin: no rashes or lesions noted and elasticity normal Neuro: oriented to person, oriented to place, oriented to time and moves all extremities Results Reviewed Nephrology Results: Sodium 140 mmol/L (135-145) 12/23/24 Potassium 3.9 mmol/L (3.3-5.1) 12/23/24 Chloride 102 mmol/L (96-108) 12/23/24 Carbon Dioxide 30 mmol/L (22-29) H 12/23/24 BUN 9 mg/dL (9-16) 12/23/24 Creatinine 0.96 mg/dL (0.5-1.4) 12/23/24 Calcium 9.8 mg/dL (8.4-10.2) 12/23/24 Urine Creatinine 95.12 mg/dL 12/23/24 Assessment & Plan Assessment & Plan (1) CKD (chronic kidney disease): Code(s): N18.9 - Chronic kidney disease, unspecified Category: Medical Plan: See below (2) Flank pain: Comment: may be musculoskeletal Code(s): R10.9 - Unspecified abdominal pain Category: Medical Plan: See below (3) Kidney stones: Code(s): N20.0 - Calculus of kidney Category: Medical Plan: See below Plan Chronic kidney disease stage III - creatinine 0.96 , GFR close to 60 , - urine protein creatinine ratio: <5 - CT kidneys showed atrophic left kidney, possibly patient is single functional kidney is currently - avoid nephrotoxic medications not limited to NSAIDs, contrast etc. - importance of diet, weight loss, adequate blood pressure control, stopped smoking we will explained to patient - continue Farxiga, lisinopril that would decrease the risk for renal disease Diabetes mellitus: - well controlled, HbA1c 7.1 - continue Lantus, Trulicity, Farxiga; can continue metformin if needed until the GFR is about 30 Hypertension: - blood pressures are well controlled - target blood pressures less than 130 systolic - continue clonidine, metoprolol, lisinopril History of renal stone: - Patient has a history of renal stone, CT showing atrophic left kidney - although the current pain does not seem like from renal stones we will get renal ultrasound to rule out nephrocalcinosis given her single kidney status. We will also get a urinalysis, previous urinalysis clean no RBCs - advised her for low-salt intake, fluid intake for at least 2-3 L, can take alot of lemonade with no sugar, advised her for weight loss. Patient has been very excellently managed by primary care Thanks for your consultation. Orders: Orders US renal BI 1 Week N20.0 - Calculus of kidney AMB Urinalysis Auto Microscop. Today N20.0 - Calculus of kidney Coding Level of Care Code New Pt Level 4 (00171) Diagnoses CKD (chronic kidney disease) N18.9 Flank pain R10.9 Kidney stones N20.0
[2025-04-17 10:42] VITALS: BP 110/74; PULSE 92; O2SAT 95; BMI 26.2
== END 2025-04-17 11:01 | disposition home or self-care (01) ==
LOC: HO.HKA 10:31
PROVIDERS: PCP Family Medicine; Referring Provider Family Medicine; Visit Provider Internal Medicine Critical Care Medicine
DX: N18.9 Chronic kidney disease, unspecified (principal); R10.9 Unspecified abdominal pain; N20.0 Calculus of kidney
CPT/HCPCS: 99204

== ENCOUNTER → 2025-04-17 10:30 | Outpatient (BNVA) | payer MEDICAID, SELFPAY | PROVIDERS: PCP Family Medicine; Referring Provider Family Medicine; Visit Provider Internal Medicine Critical Care Medicine | DX: I12.9 Hypertensive chronic kidney disease with stage 1 through stage 4 chronic kidney disease, or unspecified chronic kidney disease (principal); E11.22 Type 2 diabetes mellitus with diabetic chronic kidney disease; N18.30 Chronic kidney disease, stage 3 unspecified; R10.9 Unspecified abdominal pain; N20.0 Calculus of kidney; Z79.4 Long term (current) use of insulin | CPT/HCPCS: 99202 ==

== ENCOUNTER 2025-04-27 10:16 | Outpatient (REF) | payer MEDICAID, SELFPAY ==
--- OUTSIDE RECORDS SUMMARY | 2025-04-27 11:13 | XMS_ITS | Clinical Summary ---
Author Organization [facility] Facility Address [address] [address] Care Team Providers Care Solar Engineer Name Role Phone Elsa Espitia MD Primary Care Provider [phone] Social History Tobacco Use Types Packs/Day Years [...] Insurance Medicaid [place] Care Teams Solar Engineer Relationship Specialty Start Date End Date Elsa Espitia MD PCP - General Family Medicine 03/20/22
[2025-04-27 12:03] LABS: MANUAL DIFF FLAG NO
[2025-04-27 12:18] LABS: Basophils Percent Auto 0.1 % (0-2); Eosinophils Absolute Auto 0.4 X10*3/uL (0.0-0.4); Hematocrit 43.6 % (37.0-47.0); Hemoglobin 13.2 g/dl (12.0-16.0); Imm Gran Abs Auto 0.03 X10*3/uL (0.00-0.03); Imm Gran Pct Auto 0.3 % (0.0-0.4); Lymphocytes Absolute Auto 1.7 X10*3/uL (1.2-4.9); Lymphocytes Percent Auto 19.4 % (20-40); Mean Corpuscular HGB Conc 30.3 g/dl (31.0-35.0); Mean Corpuscular Hemoglobin 24.1 pg (27.0-33.0); Mean Corpuscular Volume 79.7 fL (80.0-98.0); Mean Platelet Volume 10.1 fL (9.4-12.3); Monocytes Absolute Auto 0.4 X10*3/uL (0.1-1.2); Monocytes Percent Auto 4.8 % (2-11); Neutrophils Absolute Auto 6.1 x10*3/uL (2.0-8.3); Neutrophils Percent Auto 70.4 % (45-73); Platelet Count 284 X10*3/uL (160-400); Red Blood Count 5.47 X10*6/uL (4.20-5.50); Red Cell Distribution Width 15.4 % (11.0-16.0); White Blood Count 8.7 X10*3/uL (4.8-10.8)
[2025-04-27 12:25] LABS: INTERNATIONAL NORM RATIO 0.9 (0.9-1.1); Prothrombin Time 10.6 SEC (10.9-12.4)
[2025-04-27 13:00] LABS: Alanine Aminotransferase 32 U/L (0-31); Albumin Level 4.2 g/dL (3.5-5.0); Alkaline Phosphatase 180 U/L (39-117); Anion Gap 13 (12-20); Aspartate Amino Transferase 27 U/L (5-31); Bilirubin Total 0.5 mg/dL (0.0-1.0); Blood Urea Nitrogen 11 mg/dL (9-16); Calcium 9.9 mg/dL (8.4-10.2); Carbon Dioxide 27 mmol/L (22-29); Chloride 104 mmol/L (96-108); Estimated Glomerular Filt Rate 50; Glucose Random 136 mg/dL (60-115); Lipase 28 U/L (8-78); Potassium 4.5 mmol/L (3.3-5.1); Sodium 139 mmol/L (135-145); Total Protein 7.7 g/dL (6.5-8.0)
[2025-04-27 13:15] LABS: Ferritin 256 ng/mL (10-250)
[2025-04-28 08:13] LABS: HBS Num1 0.72 mIU/mL (0-7.99); HBc Num1 0.18 S/CO (0.00-0.79); HBsAGNum1 0.31 S/CO (0.00-0.99); Hepatitis A Antibody IgM 0.42 Index (0-0.79); Hepatitis B Core Antibody Nonreactive (Nonreactive); Hepatitis B Surface Antigen Negative (Negative); ~HepC Num1 0.08 S/CO (0.00-0.79); ~Hepatitis A Antibody IgM Nonreactive (Nonreactive); ~Hepatitis B Surface Antibody NONREACTIVE (Nonreactive); ~Hepatitis C Antibody Nonreactive (Nonreactive)
[2025-04-30 00:17] LABS: Smooth Muscle Antibody <20 U (<20)
[2025-05-01 11:38] LABS: Mitochondrial Antibodies POSITIVE (NEGATIVE)
[2025-05-04 12:28] LABS: Anti Nuclear Antibody Screen POSITIVE (NEGATIVE)
== END 2025-04-27 10:17 | disposition home or self-care (01) ==
LOC: HO.10HDL 10:16
PROVIDERS: Visit Provider Nurse Practitioner Family
DX: Z13.89 Encounter for screening for other disorder (principal)
CPT/HCPCS: 36415; 80053; 82728; 83690; 85025; 85610; 86015; 86038; 86039; 86381; 86704; 86706; 86709; 86803; 87340

== ENCOUNTER → 2025-04-27 10:26 | Outpatient (REF) | payer MEDICAID, SELFPAY ==
--- NOTE | ~2025-04-27 | NM_ITS ---
EXAMINATION: NM HEPATOBILIARY WITH PHARM HISTORY: R74.8 - Abnormal levels of other serum enzymes. TECHNIQUE: An hepatobiliary scan was performed following the intravenous administration of 5 mCi technetium 99m-mebrofenin. Sequential images were obtained over 90 minutes. Subsequently, the patient received 1.3 microgram of IV CCK over 30 minutes and additional imaging was performed. COMPARISON: Prior abdominal CT and ultrasound examinations are not available for comparison at this time. FINDINGS: There is normal uptake and excretion of the radiopharmaceutical by the liver. Gallbladder activity is noted at 30 minutes. Common bile duct activity is seen at 44 minutes. Small bowel activity is noted at 40 minutes. After the administration of intravenous CCK, the estimated gallbladder ejection fraction is 79%, which is within normal limits (normal 35-80%). NM/NM hepatobiliary w pharm IMPRESSION: Normal hepatobiliary scan with normal gallbladder ejection fraction. Electronically signed by: Medhat Felix MD 04/27/2025 01:36 PM EDT
== END ==
LOC: HO.NUCMED 10:26
PROVIDERS: PCP Family Medicine; Visit Provider Nurse Practitioner Family
DX: R74.8 Abnormal levels of other serum enzymes (principal); R10.13 Epigastric pain
CPT/HCPCS: 78227; A9537; J2805

== ENCOUNTER → 2025-04-27 10:28 | Outpatient (BNV) | payer MEDICAID, SELFPAY | PROVIDERS: PCP Family Medicine; Visit Provider Radiology Diagnostic Radiology | DX: R74.8 Abnormal levels of other serum enzymes (principal) | CPT/HCPCS: 78227 ==

== ENCOUNTER 2025-05-19 10:00 | Outpatient (AMB) | payer MEDICAID, SELFPAY ==
--- NOTE | 2025-05-19 10:14 | MHC.OFFVIS ---
Vital Signs 05/19/25 10:17 Height 5 ft 2 in Weight 138 lb 14.259 oz BMI 25.4 BP 109/67 Pulse 89 Intake Visit Reasons: 4 wks f/u constipation, lab review Intake Note: Lakshmi presents in the office as a 4 week follow up for constipation and review labs. CC: She states that she is still having pains in her stomach and the constipation at times. Traveling Passenger Agent Required: Yes Traveling Passenger Agent Name: [id number] Allergies aspirin (Aspirin) Allergy (Intermediate, Verified 05/19/25 10:18) EYES SWELLING Penicillins Allergy (Intermediate, Verified 05/19/25 10:18) RASH citalopram Allergy (Unknown, Verified 05/19/25 10:18) chest pain Diltiazem HCl Allergy (Unknown, Uncoded 05/19/25 10:18) Unknown HPI HPI 4 wks f/u constipation, lab review: Details: Patient is a 59-year-old Bhutanese-speaking female with PMH of diabetes, hypertension, arthritis, asthma, depression and GERD. The patient presents for follow up on labs. Workup continued following elevated liver levels. Recent labs showed positive autoimmune markers. An ultrasound-guided liver biopsy has been recommended but not yet scheduled. There was indication from a HIDA scan, which returned normal results. The patient reports persistent constipation with dark stools, occasional bowel movements, and related epigastric pain. Heartburn is noted and is being managed with omeprazole, which the patient takes daily but sometimes only when symptoms are expected. The patient has not had an upper endoscopy before. There has been significant discomfort leading to vomiting, and a past incident of heavy rectal bleeding reported. The patient also describes bloating and abdominal distension, occasionally suspecting a hernia. The patient was previously on a fiber and combo laxative regimen but still experiences constipation. Patient denies: fever/chills, appetite changes, dysphasia or unintentional wt loss -tolerated anesthesia in the past without difficulty. . [facility] Medical History (Updated 05/19/25 @ 16:57 by Tiana Betancourt CNP) Constipation Former smoker Colon cancer screening Gallbladder polyp Elevated AFP Pleural effusion Bronchopneumonia Diabetes THANH (acute kidney injury) Acute respiratory failure with hypoxia Pneumonia Asthma with acute exacerbation Asthma On beta mariaelena at home Hx of renal calculi Right knee injury Acute anxiety Depression GERD (gastroesophageal reflux disease) HTN (hypertension) Diabetic acidosis, type II Arthritis Surgical History History of hysterectomy Hx of arthroscopy of right knee Hx of cystoscopy Family History Father No problems noted. Mother No problems noted. Maternal Grandmother Cancer Other No family history of coronary artery disease Social History Household Members: None Housing: Apartment Alcohol intake: current Alcohol intake frequency: holidays/special occasions only Patient Tobacco Use Status: Former Tobacco user Years Smoked: 20 +/- Second Hand Smoke Exposure: No service: No Current occupational status: disabled Current occupation: right hand dominant Review of Systems Const Reports as per HPI ENT Reports as per HPI Card Reports as per HPI Resp Reports as per HPI GI Reports as per HPI Reports as per HPI Physical Exam Vital Signs: Last Vital Signs Pulse 89 05/19/25 10:17 BP 109/67 05/19/25 10:17 BMI result Body Mass Index 25.4 Const General: healthy appearing, no acute distress and well developed Nutritional Appearance: average body habitus Orientation/consciousness: patient oriented x3 HEENT Head: Yes normal to inspection, Yes normocephalic and Yes atraumatic Face and sinus: Yes normal facial exam Eyes General: appearance normal, both eyes and all related structures Neck Neck: Yes normal visual inspection Resp Effort & Inspection: normal respiratory effort, able to speak in complete sentences, no tracheal deviation and symmetric chest movement Auscultation: clear to auscultation bilaterally Cardio Jugular venous distension: no JVD Rate: regular rate Rhythm: regular rhythm Heart sounds: S1 normal heart sound present, S2 normal heart sound present, no gallops and no murmurs GI Inspection: Yes normal to inspection, No distended and Yes obesity Palpation (GI): Soft to palpation, not firm, Tenderness to palpation present (GI) in the epigastrum and No hepatosplenomegaly present Auscultation: normal bowel sounds Neuro General: patient oriented x3 Gait exam (Neuro): Normal gait present Psych Appearance: grossly normal Mental Status: mental status grossly normal Speech and movement: Normal speech and movement present Affect: normal affect Attitude: cooperative Thought process: Normal thought process present Thought content: Normal thought content present Insight: Good insight present (Psych) Judgement: Good judgement present (Psych) Assessment & Plan Assessment & Plan (1) Elevated alkaline phosphatase level: Code(s): R74.8 - Abnormal levels of other serum enzymes Category: Medical Plan: After further review and discussed with collaborating physician diagnosis of PBC can be made given elevated alkaline phos and positive AMA with a titer of 1.32. She also has a fib 4 score of 0.91 indicating fibrosis stage of 0 -1 making advance fibrosis less likely. Therefore, we will hold on any further diagnostics including liver biopsy. We will reach out to patient to schedule a sooner follow-up to discuss diagnosis and treatment options. (2) Constipation: Code(s): K59.00 - Constipation, unspecified Category: Medical Qualifiers: Constipation type: slow transit constipation Qualified Code(s): K59.01 - Slow transit constipation Plan: Persistent constipation contributing to abdominal discomfort and distension. Medications: Add Miralax oral daily. Reinforced lifestyle modifications to promote regularity: -higher fiber diet, examples provided -adequate hydration with water -150 minutes of moderate intensity exercise per week (3) GERD (gastroesophageal reflux disease): Code(s): K21.9 - Gastro-esophageal reflux disease without esophagitis Category: Medical Qualifiers: Esophagitis presence: esophagitis presence not specified Qualified Code(s): K21.9 - Gastro-esophageal reflux disease without esophagitis Plan: Symptoms consistent with GERD, control with acid suppression therapy. 11/2024 CT did show evidence of lymphadenopathy with the jace hepatis/peripancreatic lymph measuring 2.2 cm. There is was no evidence of para-aortic lymphadenopathy. Additional Tests: Upper endoscopy to rule out further pathology. Medications: Continue Omeprazole 40mg oral daily, Famotidine PRN for breakthrough symptoms. Encouraged to take omeprazole as prescribed, taken at least 30-60 minutes before a meal. Education on GERD prevention : -Advised against heavy meals; encouraged small, frequent meals instead of large ones. - Instructed to remain upright for 2?3 hours after eating. - Advised to avoid late-night meals, spicy foods, caffeine, alcohol, known dietary triggers, and tight-fitting clothing. - Emphasis placed on gradual implementation of lifestyle changes to improve adherence and symptom control. Plan Team to reach out for sooner follow up. Time: I spent a total of 40 minutes on the date of encounter which includes: Preparing to see the patient (reviewed previous documentation, test results and medical history) Performing a medically appropriate exam and/or evaluation Ordering medications, tests, and procedures Documenting clinical information in the health record Orders: Orders Alkaline Phosphatase Isoenzyme 05/19/25 R74.8 - Abnormal levels of other serum enzymes Gamma Glutamyl Transpeptidase 05/19/25 R74.8 - Abnormal levels of other serum enzymes Immunoglobulins,IgG IgA IgM 05/19/25 R74.8 - Abnormal levels of other serum enzymes Medications: New bisacodyl Take four tablets once for 1 day per colonoscopy instructions 5 mg PO ONCE 4 tabs 0RF 1 day polyethylene glycol 3350 (Miralax) Take 17G (one cap full) daily with 8oz of water 17 grams PO DAILY 510 grams 2RF constipation 30 days polyethylene glycol 3350 (Miralax) per colonoscopy prep instructions 238 grams PO ONCE 238 grams 0RF Refilled omeprazole 40 mg (2 x 20 mg) PO DAILY 60 caps 5RF 30 days Coding Level of Care Code Established Pt Est Pt Level 4 (24862) Patient Type Established Diagnoses Elevated alkaline phosphatase level R74.8 Slow transit constipation K59.01 Constipation type: slow transit constipation Gastroesophageal reflux disease, unspecified whether esophagitis present K21.9 Esophagitis presence: esophagitis presence not specified
[2025-05-19 10:17] VITALS: BP 109/67; PULSE 89; BMI 25.4
--- OUTSIDE RECORDS SUMMARY | 2025-05-19 11:00 | XMS_ITS | Encounter Summary ---
Author Organization [employer] Address [address] [facility] [address] [place] [address] Care Team Providers Care Land Developer Name Role Phone Elsa Espitia MD Primary Care Provider [phone] Reason for Visit * Reason Comments Med Refill Encounter Details Date Type Department Care Team ([facility] st Contact Info) Description 09/27/2023 Refill [facility] [address] [place], [place] [phone] Curt Carnes MD [address] [place], [place] [phone] Gastroesophageal reflux disease, unspecified whether esophagitis present [...] Care Team (Late st Contact Info) Description 06/19/2025 11:30 AM EDT Clinical Support [facility] [address] [place] [phone] Cha Gonzalez RN [address] [place] [address] 07/06/2025 1:15 PM EDT Office Visit [facility] [address] [place] [phone] Elsa Espitia MD [address] [place] [phone] documented as of this encounter Visit Diagnoses Diagnosis Gastroesophageal reflux disease, unspecified whether esophagitis present documented in this encounter Additional Health Concerns Assessment Noted Time PHQ-9 Depression Total Score: 0 06/01/20 23 10:46 AM EDT documented as of this encounter Care Teams Land Developer Relationship Specialty Start Date End Date Elsa Espitia MD [address] [place] [id number] PCP - General Family Medicine 04/04/19 Kath White Cable Tv InstallerPolisher Numeral 03/06/24 documented as of this encounter
== END 2025-05-19 11:32 | disposition home or self-care (01) ==
LOC: HO.HGI 10:00
PROVIDERS: PCP Family Medicine; Visit Provider Nurse Practitioner Family
DX: R74.8 Abnormal levels of other serum enzymes (principal); K59.01 Slow transit constipation; K21.9 Gastro-esophageal reflux disease without esophagitis
CPT/HCPCS: 99214

== ENCOUNTER → 2025-05-19 10:00 | Outpatient (BNVA) | payer MEDICAID, SELFPAY | PROVIDERS: PCP Family Medicine; Visit Provider Nurse Practitioner Family | DX: K21.9 Gastro-esophageal reflux disease without esophagitis (principal); R74.8 Abnormal levels of other serum enzymes; K59.01 Slow transit constipation | CPT/HCPCS: 99212 ==

== ENCOUNTER 2025-06-11 10:22 | Outpatient (REF) | payer MEDICAID, SELFPAY ==
--- NOTE | ~2025-06-11 | US_ITS ---
CLINICAL HISTORY: N20.0 - Calculus of kidney US renal Comparison: 11/16/2023 Findings: Right kidney 11.3 cm length. No significant focal abnormality. Left kidney 7.8 cm length. Increased echogenicity consistent with chronic disease. No significant focal abnormality is identified. Incidental 1.4 cm upper pole cyst. No bilateral hydronephrosis. Impression: Small echogenic left kidney consistent with chronic disease No other significant abnormality This document has been electronically signed by: Adolfo Flores MD on 06/11/2025 21:11:22
--- OUTSIDE RECORDS SUMMARY | 2025-06-11 10:53 | XMS_ITS | Encounter Summary ---
Author Organization [employer] Address [address] [facility] [address] [place] [address] Care Team Providers Care Fuel Efficient Aircraft Designer Name Role Phone Elsa Espitia MD Primary Care Provider [phone] Reason for Visit * Reason Comments Med Refill Encounter Details Date Type Department Care Team ([facility] st Contact Info) Description 06/08/2025 Refill [facility]INE [address] [place], [place] [phone] Curt Carnes MD [address] [place] [address] Social History Tobacco Use Types Packs/Day Years [...] Description 06/19/2025 11:30 AM EDT Clinical Support [facility] [address] [place] [phone] Cha Gonzalez RN [address] [place] [address] 07/06/2025 1:15 PM EDT Office Visit [facility] [address] [place] [phone] Elsa Espitia MD [address] [place] [phone] documented as of this encounter Visit Diagnoses Not on filedocumented in this encounter Additional Health Concerns Assessment Noted Time PHQ-9 Depression Total Score: 0 09/18/20 10:38 AM EDT documented as of this encounter Care Teams Fuel Efficient Aircraft Designer Relationship Specialty Start Date End Date Elsa Espitia MD [address] [place] [phone] PCP - General Family Medicine 04/04/19 Kath White Personal Support WorkerEarly Learning Teacher 03/06/24 documented as of this encounter
--- OUTSIDE RECORDS SUMMARY | 2025-06-11 10:53 | XMS_ITS | Clinical Summary ---
Author Organization [facility] Facility Address [address] [address] Care Team Providers Care Snow Technician Name Role Phone Elsa Espitia MD Primary Care Provider [phone] Social History Tobacco Use Types Packs/Day Years [...] of 1 - PCV) 016 Influenza Vaccine (#1) 2025 Insurance Medicaid [place] Medicaid [place] Care Teams Snow Technician Relationship Specialty Start Date End Date Elsa Espitia MD PCP - General Family Medicine 03/20/22
== END 2025-06-11 10:23 | disposition home or self-care (01) ==
LOC: HO.US 10:22
PROVIDERS: PCP Family Medicine; Visit Provider Internal Medicine Critical Care Medicine
DX: N20.0 Calculus of kidney (principal); M25.569 Pain in unspecified knee
CPT/HCPCS: 76775

== ENCOUNTER 2025-06-11 10:32 | Outpatient (REF) | payer MEDICAID, SELFPAY ==
--- NOTE | ~2025-06-11 | XR_ITS ---
EXAMINATION: XR KNEE 3 VIEWS RIGHT HISTORY: M25.569 - Pain in unspecified knee COMPARISON: Comparison is made with the prior examination dated 07/08/2021. FINDINGS: Standing AP views of both knees and additional lateral and sunrise patellar views of the right knee are submitted. Osseous mineralization is normal. There is no fracture or dislocation. There is severe osteoarthritis of the lateral compartment and moderate osteoarthritis of the medial patellofemoral compartments, with joint space narrowing and osteophyte formation. The soft tissues are unremarkable. There is no joint effusion. XR/XR knee RT 3V IMPRESSION: Osteoarthritis of the right knee as described. Electronically signed by: Medhat Felix MD 06/11/2025 12:57 PM EDT
--- OUTSIDE RECORDS SUMMARY | 2025-06-12 11:02 | XMS_ITS | Encounter Summary ---
Author Organization [employer] Address [address] [place] [address] Care Team Providers Care First Leveler Name Role Phone Elsa Espitia MD Primary Care Provider [phone] Reason for Visit * Reason Comments Med Refill Encounter Details Date Type Department Care Team ([facility] st Contact Info) Description 06/08/2025 Refill [facility] [address] [place], [place] [phone] Curt Carnes MD [address] [place] [address] Social History Tobacco Use Types Packs/Day Years [...] Description 06/19/2025 11:30 AM EDT Clinical Support [facility] [address] [place] [address] Cha Gonzalez RN [address] [place] [address] 07/06/2025 1:15 PM EDT Office Visit [facility] [address] [place] [address] Elsa Espitia MD [address] [place] [address] documented as of this encounter Visit Diagnoses Not on filedocumented in this encounter Additional Health Concerns Assessment Noted Time PHQ-9 Depression Total Score: 0 09/18/20 10:38 AM EDT documented as of this encounter Care Teams First Leveler Relationship Specialty Start Date End Date Elsa Espitia MD [address] [place] [address] PCP - General Family Medicine 04/04/19 Kath White Dryerman/WomanSenior Infrastructure Architect 03/06/24 documented as of this encounter
--- OUTSIDE RECORDS SUMMARY | 2025-06-12 11:03 | XMS_ITS | Clinical Summary ---
Author Organization [facility] Facility Address [address] [address] Care Team Providers Care Forest Management Teacher Name Role Phone Elsa Espitia MD Primary Care Provider [phone] Social History Tobacco Use Types Packs/Day Years [...] Insurance Medicaid [place] Care Teams Forest Management Teacher Relationship Specialty Start Date End Date Elsa Espitia MD PCP - General Family Medicine 03/20/22
--- OUTSIDE RECORDS SUMMARY | 2025-06-12 11:03 | XMS_ITS | Clinical Summary ---
Author Organization [facility] Address [address] [place] [address] Phone Care Team Providers Care Digital Producer Name Role Phone Unavailable Primary Care Provider Unavailabl e Social History Tobacco Use Types Packs/Day Years Used Date Smoking Tobacco: Never Assessed Education Answer Date Recorded Are you interested in more education? Not on gabe e 03/24/2023 Are you concerned about learning? Not on file 03/24/2023 No 03/24/2023 No 03/24/2023 Digital Access Answer Date Recorded No 04/24/2023 No 04/24/2023 Reliable internet access at home? Not on file 04/24/2023 Device with a working camera? Not on file Comments Unknown Sex and Gender Information Value Date Recorded Sex Assigned at Not on file Legal Sex Female 11:58 AM EDT Gender Identity Not on file Sexual Orientation Not on file Plan of Treatment Not on file Medical Devices Not on file Additional Source Comments The information contained in this document represents components of the legal health record. It is not the complete legal health record.[facility]
== END 2025-06-11 10:33 | disposition home or self-care (01) ==
LOC: HO.HOSX 10:32
PROVIDERS: Visit Provider Physician Assistant
DX: M17.11 Unilateral primary osteoarthritis, right knee (principal); M25.561 Pain in right knee
CPT/HCPCS: 73562; 99212

== ENCOUNTER 2025-06-11 12:38 | Outpatient (AMB) | payer MEDICAID, SELFPAY ==
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
[2025-06-11 13:04] VITALS: BMI 25.2
== END 2025-06-11 14:09 | disposition home or self-care (01) ==
LOC: HO.HOS 12:39
PROVIDERS: PCP Family Medicine; Visit Provider Physician Assistant
DX: M17.11 Unilateral primary osteoarthritis, right knee (principal)
CPT/HCPCS: 99214

== ENCOUNTER → 2025-06-11 12:44 | Outpatient (BNV) | payer MEDICAID, SELFPAY | PROVIDERS: Visit Provider Radiology Diagnostic Radiology | DX: N20.0 Calculus of kidney (principal); M17.11 Unilateral primary osteoarthritis, right knee | CPT/HCPCS: 73562; 76775 ==

== ENCOUNTER 2025-06-19 10:25 | Outpatient (REF) | payer MEDICAID, SELFPAY ==
--- OUTSIDE RECORDS SUMMARY | 2025-06-20 10:27 | XMS_ITS | Clinical Summary ---
Author Organization [facility] Address [address] [place] [address] Phone Care Team Providers Care Sensor Operator Name Role Phone Unavailable Primary Care Provider [...] It is not the complete legal health record.[facility]
--- OUTSIDE RECORDS SUMMARY | 2025-06-20 10:27 | XMS_ITS | Clinical Summary ---
Author Organization [facility] Facility Address [address] [address] Care Team Providers Care Door Hanger Name Role Phone Elsa Espitia MD Primary Care Provider [phone] Social History Tobacco Use Types Packs/Day Years [...] Insurance Medicaid [place] Care Teams Door Hanger Relationship Specialty Start Date End Date Elsa Espitia MD PCP - General Family Medicine 03/20/22
--- OUTSIDE RECORDS SUMMARY | 2025-06-20 10:27 | XMS_ITS | Encounter Summary ---
Author Organization [employer] Address [address] [place] [address] Care Team Providers Care Freight Elevator Operator Name Role Phone Elsa Espitia MD Primary Care Provider [phone] Reason for Visit * Reason Comments Med Refill Encounter Details Date Type Department Care Team ([facility] st Contact Info) Description 09/27/2023 Refill [facility] [address] [place], [place] [phone] Curt Carnes MD [address] [place], [place] [phone] Gastroesophageal reflux disease, unspecified whether esophagitis present [...] Care Team (Late st Contact Info) Description 07/06/2025 1:15 PM EDT Office Visit [facility] [address] [place] [address] Elsa Espitia MD [address] [place] [address] 08/06/2025 2:30 PM EDT Clinical Support [facility] [address] [place] [address] Cha Gonzalez, RN [address] [place] [address] documented as of this encounter Visit Diagnoses Diagnosis Gastroesophageal reflux disease, unspecified whether esophagitis present documented in this encounter Additional Health Concerns Assessment Noted Time PHQ-9 Depression Total Score: 0 06/01/20 23 10:46 AM EDT documented as of this encounter Care Teams Freight Elevator Operator Relationship Specialty Start Date End Date Elsa Espitia MD [address] [place] [id number] PCP - General Family Medicine 04/04/19 Kath White Boxing PromoterPediatric Geneticist 03/06/24 documented as of this encounter
== END 2025-06-19 10:26 | disposition home or self-care (01) ==
LOC: HO.HOSX 10:25
PROVIDERS: Visit Provider Physician Assistant
DX: Z13.89 Encounter for screening for other disorder (principal)

== ENCOUNTER → 2025-06-24 12:22 | Day surgery (SDC) | payer MEDICAID, SELFPAY ==
[2025-06-24 12:35] VITALS: BMI 25.2
[2025-06-24 13:04] VITALS: BP 125/73; PULSE 81; RESP 16; TEMP 36.8; O2SAT 97
[2025-06-24 13:05] LABS: MANUAL DIFF FLAG NO
[2025-06-24 13:06] LABS: Glucose, Whole Blood 127 mg/dL (60-115)
[2025-06-24 13:14] LABS: Hematocrit 39.6 % (37.0-47.0); Hemoglobin 12.7 g/dl (12.0-16.0); Imm Gran Abs Auto 0.03 X10*3/uL (0.00-0.03); Imm Gran Pct Auto 0.4 % (0.0-0.4); Lymphocytes Absolute Auto 1.7 X10*3/uL (1.2-4.9); Mean Corpuscular HGB Conc 32.1 g/dl (31.0-35.0); Mean Corpuscular Hemoglobin 24.3 pg (27.0-33.0); Mean Corpuscular Volume 75.7 fL (80.0-98.0); NRBC Abs Auto 0.000 X10*3/uL (0.0-0.012); NRBC Pct Auto 0.0 /100WBC (0.0-0.2); Platelet Count 224 X10*3/uL (160-400); Red Blood Count 5.23 X10*6/uL (4.20-5.50); White Blood Count 7.2 X10*3/uL (4.8-10.8)
[2025-06-24 13:15] LABS: INTERNATIONAL NORM RATIO 0.9 (0.9-1.1); Prothrombin Time 10.5 SEC (10.9-12.4)
[2025-06-24 13:18] LABS: Partial Thromboplastin Time 31.0 SEC (26.7-34.1)
[2025-06-24 13:20] LABS: Anion Gap 11 (12-20); Blood Urea Nitrogen 9 mg/dL (9-16); Calcium 9.0 mg/dL (8.4-10.2); Carbon Dioxide 24 mmol/L (22-29); Chloride 108 mmol/L (96-108); Creatinine Clr Calc Pharmacy 66.6; Estimated Glomerular Filt Rate > 60; Potassium 4.3 mmol/L (3.3-5.1); Sodium 139 mmol/L (135-145)
--- NOTE | 2025-06-24 14:52 | PC.NURSE ---
medical interpreter at bedside to help explain to patient that procedure is cancelled today. Patient has an appointment in [facility] for 3pm to follow up regarding this procedure. patient understands. IV removed and intact. patient sent to GI office.
== END ==
LOC: HO.SSS 12:23
PROVIDERS: Radiology Diagnostic Radiology; PCP Family Medicine; Visit Provider Nurse Practitioner Family
DX: R76.0 Raised antibody titer (principal); Z53.8 Procedure and treatment not carried out for other reasons; K74.3 Primary biliary cirrhosis; R53.83 Other fatigue; R79.1 Abnormal coagulation profile; R79.89 Other specified abnormal findings of blood chemistry; I10 Essential (primary) hypertension; E11.10 Type 2 diabetes mellitus with ketoacidosis without coma; K21.9 Gastro-esophageal reflux disease without esophagitis; J45.909 Unspecified asthma, uncomplicated; Z79.899 Other long term (current) drug therapy; Z88.0 Allergy status to penicillin; Z88.6 Allergy status to analgesic agent; Z88.8 Allergy status to other drugs, medicaments and biological substances; Z87.891 Personal history of nicotine dependence; Z98.890 Other specified postprocedural states
CPT/HCPCS: 36415; 80048; 82947; 85025; 85610; 85730; 86850; 86900; 86901; 99212; J2003; J2250; J3010

== ENCOUNTER 2025-06-24 15:05 | Outpatient (AMB) | payer MEDICAID, SELFPAY ==
--- NOTE | 2025-06-24 15:09 | A.OFFVIS_ITS ---
Vital Signs 06/24/25 15:11 Height 5 ft 2 in Weight 140 lb BMI 25.6 BP 136/77 Blood Pressure Location Lt brachial Position Sitting Pulse 82 Intake Visit Reasons: Manage Meds & symptoms, Intake Note: Patient follow up for med management and symptoms Patient leilani any GI issues. Director Meetings Required: Yes Director Meetings Name: [facility] Information Interpreted: non-clinical & clinical Accompanied by: Self / Same As Patient Allergies aspirin (Aspirin) Allergy (Intermediate, Verified 06/24/25 15:09) EYES SWELLING Penicillins Allergy (Intermediate, Verified 06/24/25 15:09) RASH citalopram Allergy (Unknown, Verified 06/24/25 15:09) chest pain Diltiazem HCl Allergy (Unknown, Uncoded 05/19/25 10:18) Unknown HPI HPI Manage Meds & symptoms,: Details: Patient is a 59-year-old Bulgarian-speaking female with PMH of diabetes, hype rtension, arthritis, asthma, depression and GERD. Presented today for liver biopsy despite cancellation of order. Shares she was unaware of in-office appt scheduled today for 12:30. Shares frustration about fasting requirements for today followed by reports of limited oral intake, stating I don't eat a lot, . She also reports continued fatigue, impacting daily function. Denies pruritus, jaundice or any new GI sx. No interim hospitalizations or urgent care visits. Pt expresses concern about the seriousness of the diagnosis, asks about prognosis and treatment. [facility] Medical History (Updated 06/24/25 @ 15:48 by Tiana Betancourt CNP) Primary biliary cholangitis Constipation Former smoker Colon cancer screening Gallbladder polyp Elevated AFP Pleural effusion Bronchopneumonia Diabetes THANH (acute kidney injury) Acute respiratory failure with hypoxia Pneumonia Asthma with acute exacerbation Asthma On beta mariaelena at home Hx of renal calculi Right knee injury Acute anxiety Depression GERD (gastroesophageal reflux disease) HTN (hypertension) Diabetic acidosis, type II Arthritis Surgical History History of hysterectomy Hx of arthroscopy of right knee Hx of cystoscopy Family History Father No problems noted. Mother No problems noted. Maternal Grandmother Cancer Other No family history of coronary artery disease Social History Household Members: None Housing: Apartment Are you a primary inpatient care manager rn to a significant other at home: No Do you presently have visiting nurse or other home services: No Alcohol intake: current Alcohol intake frequency: does not drink Patient Tobacco Use Status: Former Tobacco user Years Smoked: 20 +/- Second Hand Smoke Exposure: No service: No Current occupational status: disabled Current occupation: right hand dominant Review of Systems Const Reports as per HPI ENT Reports as per HPI Card Reports as per HPI Resp Reports as per HPI GI Reports as per HPI Reports as per HPI Physical Exam Vital Signs: Last Vital Signs Pulse 82 06/24/25 15:11 BP 136/77 06/24/25 15:11 BMI result Body Mass Index 25.6 Const General: healthy appearing, no acute distress and well developed Nutritional Appearance: average body habitus Orientation/consciousness: patient oriented x3 HEENT Head: Yes normal to inspection, Yes normocephalic and Yes atraumatic Face and sinus: Yes normal facial exam Eyes General: appearance normal, both eyes and all related structures Neck Neck: Yes normal visual inspection Resp Effort & Inspection: normal respiratory effort, able to speak in complete sentences, no tracheal deviation and symmetric chest movement Cardio Jugular venous distension: no JVD Neuro General: patient oriented x3 Gait exam (Neuro): Normal gait present Psych Appearance: grossly normal Mental Status: mental status grossly normal Speech and movement: Normal speech and movement present Affect: normal affect Attitude: cooperative Thought process: Normal thought process present Thought content: Normal thought content present Insight: Good insight present (Psych) Judgement: Good judgement present (Psych) Assessment & Plan Assessment & Plan (1) Primary biliary cholangitis: Code(s): K74.3 - Primary biliary cirrhosis Category: Medical Plan: New diagnosis of Primary biliary cholangitis (PBC) based on serologic and clinical findings, extensive education provided. Symptomatic with fatigue, no pruritus or jaundice. Awaiting additional labs and bone scan. liver biopsy not required. Additional Testing: -Bone scan: Assess for osteoporosis risk due to PBC. -Baseline labs prior to med initiation. Medications: -Plan to initiate weight-based ursodeoxycholic acid (UDCA) after labs and bone scan completed. Lifestyle Recommendations: -Encourage balanced diet as tolerated; monitor for sx of malnutrition. -Provided educational handout on PBC and tx overview. -Instructed pt to monitor for pruritus, jaundice, and report any new sx. Follow-Up Plan: -F/u in 4 wks or sooner if bone scan completed. -Review labs, bone scan, and initiate UDCA at next visit. -Pt instructed to write down questions for next appt. Plan Unclear how the patient was scheduled for a liver biopsy after the original order was canceled on 05/19/2025. An office visit was instead scheduled with the patient for today at 12:30 PM. Acknowledged and validated the patient?s frustration related to fasting for a procedure that was no longer indicated. Apologized for the confusion and any inconvenience this caused Follow-up in 4 weeks or sooner as needed Time: I spent a total of 40 minutes on the date of encounter which includes: Preparing to see the patient (reviewed previous documentation, test results and medical history) Performing a medically appropriate exam and/or evaluation Ordering medications, tests, and procedures Documenting clinical information in the health record Orders: Orders Vitamin D 1,25 dihydroxy 06/24/25 K74.3 - Primary biliary cirrhosis Comprehensive Douglas. Panel Fast 06/24/25 K74.3 - Primary biliary cirrhosis XR DEXA axial skeleton 06/24/25 K74.3 - Primary biliary cirrhosis Vitamin A 06/24/25 K74.3 - Primary biliary cirrhosis Vitamin E 06/24/25 K74.3 - Primary biliary cirrhosis Vitamin K1 06/24/25 K74.3 - Primary biliary cirrhosis Coding Level of Care Code Established Pt Est Pt Level 5 (02576) Patient Type Established Diagnoses Primary biliary cholangitis K74.3
[2025-06-24 15:11] VITALS: BP 136/77; PULSE 82; BMI 25.6
--- OUTSIDE RECORDS SUMMARY | 2025-06-24 15:48 | XMS_ITS | Encounter Summary ---
Author Organization [employer] Address [address] [place] [address] Care Team Providers Care Iron Handler Name Role Phone Elsa Espitia MD Primary Care Provider [phone] Encounter Details Date Type Department Care Team (Latest Contact Info) Description 06/19/2025 Travel Social History Tobacco Use Types Packs/Day [...] Description 07/06/2025 1:15 PM EDT Office Visit [facility] [address] [place] [address] Elsa Espitia MD [address] [place] [address] 08/06/2025 2:30 PM EDT Clinical Support [facility] [address] [place] [address] Cha Gonzalez, RN [address] [place] [address] documented as of this encounter Visit Diagnoses Not on filedocumented in this encounter Additional Health Concerns Assessment Noted Time PHQ-9 Depression Total Score: 0 09/18/20 10:38 AM EDT documented as of this encounter Care Teams Iron Handler Relationship Specialty Start Date End Date Elsa Espitia MD [address] [place] [address] PCP - General Family Medicine 04/04/19 Kath White American Indian Policy SpecialistGuitar Player 03/06/24 documented as of this encounter
--- OUTSIDE RECORDS SUMMARY | 2025-06-24 15:48 | XMS_ITS | Clinical Summary ---
Author Organization [facility] Facility Address [address] [address] Care Team Providers Care Clearing Distribution Clerk Name Role Phone Elsa Espitia MD Primary Care Provider Social History Tobacco Use Types Packs/Day Years [...] Insurance [place] Care Teams Clearing Distribution Clerk Relationship Specialty Start Date End Date Elsa Espitia MD PCP - General Family Medicine 03/20/22
--- OUTSIDE RECORDS SUMMARY | 2025-06-24 15:48 | XMS_ITS | Clinical Summary ---
Author Organization [facility] Address [address] [place] [address] Phone Care Team Providers Care Airflight Attendants Supervisor Name Role Phone Unavailable Primary Care Provider [...] It is not the complete legal health record.[facility]
== END 2025-06-24 16:35 | disposition home or self-care (01) ==
LOC: HO.HGI 15:05
PROVIDERS: PCP Family Medicine; Visit Provider Nurse Practitioner Family
DX: K74.3 Primary biliary cirrhosis (principal)
CPT/HCPCS: 99215

== ENCOUNTER 2025-06-24 15:49 | Outpatient (REF) | payer MEDICAID, SELFPAY ==
[2025-06-24 17:26] LABS: Alanine Aminotransferase 55 U/L (0-31); Albumin Level 4.1 g/dL (3.5-5.0); Alkaline Phosphatase 163 U/L (39-117); Anion Gap 13 (12-20); Aspartate Amino Transferase 31 U/L (5-31); Blood Urea Nitrogen 9 mg/dL (9-16); Calcium 9.4 mg/dL (8.4-10.2); Carbon Dioxide 26 mmol/L (22-29); Chloride 106 mmol/L (96-108); Estimated Glomerular Filt Rate > 60; Gamma Glutamyl Transpeptidase 324 U/L (7-33); Potassium 4.5 mmol/L (3.3-5.1); Sodium 140 mmol/L (135-145); Total Protein 7.2 g/dL (6.5-8.0)
[2025-06-27 20:44] LABS: VITAMIN D (1,25 OH) D3 <8 pg/mL; Vit D (1,25-Dihydroxy) Total 60 pg/mL (18-72); Vitamin D (1,25 OH) D2 60 pg/mL
[2025-06-28 23:29] LABS: Alk.Phos Iso. Macrohepatic 0 % (<=0); Alk.Phos Isoenzymes Bone 32 % (28-66); Alk.Phos Isoenzymes Intest 9 % (1-24); Alk.Phos Isoenzymes Liver 60 % (25-69); Alk.Phos Isoenzymes Placental 0 % (<=0); Alk.Phos Isoenzymes Total 155 U/L (37-153)
== END 2025-06-24 15:50 | disposition home or self-care (01) ==
LOC: HO.LAB 15:49
PROVIDERS: PCP Family Medicine; Visit Provider Nurse Practitioner Family
DX: Z13.89 Encounter for screening for other disorder (principal)
CPT/HCPCS: 36415; 80053; 82652; 82784; 82977; 84080; 84446; 84590; 84597

== ENCOUNTER 2025-06-29 13:53 | Outpatient (REF) | payer MEDICAID, SELFPAY ==
--- NOTE | ~2025-06-29 | MM_ITS ---
EXAMINATION: DXA BONE DENSITY AXIAL HISTORY: K74.3 - Primary biliary cirrhosis TECHNIQUE: Gravie Dual energy absorptiometry (DEXA) of the lumbar spine, total left hip, and femoral neck was performed. COMPARISON: There are no prior studies for comparison. FINDINGS: The bone mineral density of the lumbar spine is 1.131 g/cm2, corresponding to a T-score of -0.4, and a Z-score of 0.7. This is indicative of normal bone mineral density. The bone mineral density of the left total hip is 0.844 g/cm2, corresponding to a T-score of -1.3, and a Z-score of -0.4. This is indicative of osteopenia. The bone mineral density of the left femoral neck is 0.734 g/cm2, corresponding to a T-score of -2.2, and a Z-score of -1.0. This is indicative of osteopenia. MM/XR DEXA axial skeleton IMPRESSION: Based on bone mineral density, and according to World Health Organization (WHO) criteria, the diagnosis is consistent with osteopenia. Statistically, 68% of repeat scans fall within 1 SD (+/- 0.010 g/cm2 for AP spine L1-L4) and 1 SD (+/- 0.012 g/cm2 for femur total) FRAX is a trademark of the [employer] [place] for Metabolic Bone Disease, a World Health Organization (WHO) Collaborating Center. Electronically signed by: Medhat Felix MD 06/29/2025 02:43 PM EDT
--- OUTSIDE RECORDS SUMMARY | 2025-06-29 14:05 | XMS_ITS | Clinical Summary ---
Author Organization [facility] Facility Address [address] [address] Care Team Providers Care Neck Band Setter Name Role Phone Elsa Espitia MD Primary Care Provider [phone] Social History Tobacco Use Types Packs/Day Years [...] Insurance [place] Care Teams Neck Band Setter Relationship Specialty Start Date End Date Elsa Espitia MD PCP - General Family Medicine 03/20/22
--- OUTSIDE RECORDS SUMMARY | 2025-06-29 14:05 | XMS_ITS | Clinical Summary ---
Author Organization [facility] Address [address] [place] [address] Phone Care Team Providers Care Bench Chemist Name Role Phone Unavailable Primary Care Provider [...] It is not the complete legal health record.[facility]
== END 2025-06-29 13:54 | disposition home or self-care (01) ==
LOC: HO.MAMMO 13:53
PROVIDERS: Visit Provider Nurse Practitioner Family
DX: Z13.820 Encounter for screening for osteoporosis (principal); K74.3 Primary biliary cirrhosis; M85.89 Other specified disorders of bone density and structure, multiple sites
CPT/HCPCS: 77080

== ENCOUNTER → 2025-06-29 14:30 | Outpatient (BNV) | payer MEDICAID, SELFPAY | PROVIDERS: Visit Provider Radiology Diagnostic Radiology | DX: E28.39 Other primary ovarian failure (principal) | CPT/HCPCS: 77080 ==

== ENCOUNTER 2025-07-01 11:04 | Outpatient (AMB) | payer MEDICAID, SELFPAY ==
--- NOTE | 2025-07-01 11:08 | HO.NEPHOV ---
Vital Signs 07/01/25 11:09 Height 5 ft 2 in Weight 141 lb 8 oz BMI 25.9 BP 96/60 Blood Pressure Location Lt brachial Position Sitting Pulse 88 Pulse Source Pulse Oximeter Pulse Oximetry (%) 92 Oxygen Delivery Method Room Air Intake Visit Reasons: 1 MO FU-Conf Needle Punch Operator Required: Yes Needle Punch Operator Language: Labor And Employment Paralegal Services: Needle Punch Operator Present Needle Punch Operator Name: Bairon [id number] Information Interpreted: clinical only Accompanied by: Self / Same As Patient Allergies aspirin (Aspirin) Allergy (Intermediate, Verified 07/01/25 11:09) EYES SWELLING Penicillins Allergy (Intermediate, Verified 07/01/25 11:09) RASH citalopram Allergy (Unknown, Verified 07/01/25 11:09) chest pain Diltiazem HCl Allergy (Unknown, Uncoded 05/19/25 10:18) Unknown HPI Comments Details: 59-year-old lady with past medical history of hypertension, diabetes mellitus, COPD with CKD stage 3 is here to followup visit. Interpretor Curt. Her blood pressures are very well controlled on lisinopril and clonidine along with metoprolol 50 mg b.i.d. Her blood sugars are well-controlled 2, HbA1c 7.1 on insulin Lantus, Trulicity and Farxiga She has a history of renal stone US kidneys, CT abdomen and pelvis showed atrophic left kidney in 10/2023. US in 2021 showed normal kidneys. [facility] Medical History (Updated 06/24/25 @ 15:48 by Tiana Betancourt CNP) Primary biliary cholangitis Constipation Former smoker Colon cancer screening Gallbladder polyp Elevated AFP Pleural effusion Bronchopneumonia Diabetes THANH (acute kidney injury) Acute respiratory failure with hypoxia Pneumonia Asthma with acute exacerbation Asthma On beta mariaelena at home Hx of renal calculi Right knee injury Acute anxiety Depression GERD (gastroesophageal reflux disease) HTN (hypertension) Diabetic acidosis, type II Arthritis Surgical History History of hysterectomy Hx of arthroscopy of right knee Hx of cystoscopy Family History Father No problems noted. Mother No problems noted. Maternal Grandmother Cancer Other No family history of coronary artery disease Social History Household Members: None Housing: Apartment Are you a primary home care music therapist to a significant other at home: No Do you presently have visiting nurse or other home services: No Alcohol intake: current Alcohol intake frequency: does not drink Patient Tobacco Use Status: Former Tobacco user Years Smoked: 20 +/- Second Hand Smoke Exposure: No service: No Current occupational status: disabled Current occupation: right hand dominant Review of Systems Const Details: Const : no body aches, no chills, no excessive sweating and no fatigue Eyes: no blurry vision and no change in vision ENT: no bleeding gums and no change in voice, no dizziness Card: no chest pain, no shortness of breath, no orthopnea, no PND Resp: no cough, no excessive phlegm production, no SOB GI: no abdominal pain and no nausea, no vomiting : no hematuria, no urinary frequency and no difficulty voiding Musc: no abnormal gait, no bone pain Neuro: no abnormal movements, no weakness, denies, dizziness Denies abnormal gait and no behavioral changes Psych: no behavioral changes and no change in appetite Endo: no change in body appearance, no cold intolerance, no excessive sweating and no fatigue Physical Exam Vital Signs: Last Vital Signs Pulse 88 07/01/25 11:09 BP 90/64 07/01/25 11:09 Pulse Ox 92 07/01/25 11:09 Oxygen Delivery Method Room Air 07/01/25 11:09 BMI result Body Mass Index 25.9 General: not in any acute distress, comfortable, sitting on the chair Nutritional Appearance: well nourished and overweight Eyes: normal position, no icterus Neck: No lymphadenopathy, no thyromegaly Resp: bilateral air entry equal, no added sounds present Cardio: normal S1, S2 heard, no murmur heard, no edema GI: soft, nontender, no guarding, no hepatosplenomegaly : bladder normal to inspection, bladder normal to palpation, no renal angle tenderness Skin: no rashes or lesions noted and elasticity normal Neuro: oriented to person, oriented to place, oriented to time and moves all extremities Results Reviewed Nephrology Results: Hgb, (12.0-16.0) 12.7 g/dl 06/24/25 WBC, (4.8-10.8) 7.2 X10*3/uL 06/24/25 Plt Count, (160-400) 224 X10*3/uL 06/24/25 Sodium, (135-145) 140 mmol/L 06/24/25 Potassium, (3.3-5.1) 4.5 mmol/L 06/24/25 Chloride, (96-108) 106 mmol/L 06/24/25 Carbon Dioxide, (22-29) 26 mmol/L 06/24/25 BUN, (9-16) 9 mg/dL 06/24/25 Creatinine, (0.5-1.4) 0.89 mg/dL 06/24/25 Calcium, (8.4-10.2) 9.4 mg/dL 06/24/25 Renal US 06/11/25 Assessment & Plan Assessment & Plan (1) Kidney stones: Code(s): N20.0 - Calculus of kidney Category: Medical (2) CKD (chronic kidney disease): Code(s): N18.9 - Chronic kidney disease, unspecified Category: Medical Plan Chronic kidney disease stage III - creatinine 0.96 , GFR close to 60 , - urine protein creatinine ratio: <5 - CT kidneys showed atrophic left kidney, possibly patient is single functional kidney is currently - avoid nephrotoxic medications not limited to NSAIDs, contrast etc. - importance of diet, weight loss, adequate blood pressure control, well explained to patient. Non smoker. - continue Farxiga, lisinopril that would decrease the risk for renal disease Diabetes mellitus: - well controlled, HbA1c 7.1 - continue Lantus, Trulicity, Farxiga; can continue metformin if needed until the GFR is about 30 Hypertension: - blood pressures are well controlled, on lower side today - target blood pressures less than 130 systolic - continue clonidine PM, metoprolol, lisinopril 2.5mg in AM. - since her blood pressures are on lower side will stop lisinopril, will follow her up. History of renal stone: - Patient has a history of renal stone, CT showing atrophic left kidney - no evidence of calculi in the US kidneys or ureter. Right kidney 11.3 cms - advised her for low-salt intake, fluid intake for at least 2-3 L, can take alot of lemonade with no sugar, advised her for weight loss. Patient has been very excellently managed by primary care Coding Level of Care Code Est Pt Level 4 (61358) Diagnoses Kidney stones N20.0 CKD (chronic kidney disease) N18.9
[2025-07-01 11:09] VITALS: BP 96/60; PULSE 88; O2SAT 92; BMI 25.9
--- OUTSIDE RECORDS SUMMARY | 2025-07-01 11:52 | XMS_ITS | Encounter Summary ---
Author Organization [employer] Address [address] [place] [address] Care Team Providers Care Low Pressure Boiler Tender Name Role Phone Elsa Espitia MD Primary Care Provider [phone] Reason for Visit * Reason Onset Date Comments historiography professor appt no show 06/11/2025 Encounter Details Date Type Department Care Team (Late st Contact Info) Description 06/11/2025 Telephone C [facility] [address] [place] [address] Elsa Espitia MD [address] [place] [address] historiography professor appt no show Social History Tobacco Use Types Packs/Day Years [...] encounter Miscellaneous Notes * Telephone Encounter - Elsa Espitia MD - 06/19/2025 4:14 PM EDT Noted * Telephone Encounter - Cha Gonzalez RN - 06/19/2025 11:52 AM EDT Pt NCNS to initial ANALYTICAL TECH NV. TC to pt via PI ID# [id number]. Appt r/s to 08/06/25 @ 2;30pm at [facility]. documented in this encounter Plan of Treatment Upcoming Encounters Date Type Department Care Team (Late st Contact Info) Description 07/06/2025 1:15 PM EDT Office Visit [facility] [address] [place] [address] Elsa Espitia MD [address] [place] [address] 08/06/2025 2:30 PM EDT Clinical Support [facility] [address] [place] [address] Cha Gonzalez, RN [address] [place] [address] documented as of this encounter Visit Diagnoses Not on filedocumented in this encounter Additional Health Concerns Assessment Noted Time PHQ-9 Depression Total Score: 0 09/18/20 10:38 AM EDT documented as of this encounter Care Teams Low Pressure Boiler Tender Relationship Specialty Start Date End Date Elsa Espitia MD [address] [place] [address] PCP - General Family Medicine 04/04/19 Kath White Restaurant Line CookMusic Minister 03/06/24 documented as of this encounter
--- OUTSIDE RECORDS SUMMARY | 2025-07-01 11:52 | XMS_ITS | Clinical Summary ---
Author Organization [facility] Address [address] [place] [address] Phone Care Team Providers Care Machine Woodworking Sander Name Role Phone Unavailable Primary Care Provider [...] It is not the complete legal health record.[facility]
--- OUTSIDE RECORDS SUMMARY | 2025-07-01 11:52 | XMS_ITS | Clinical Summary ---
Author Organization [facility] Address [address] [address] Care Team Providers Care Senior Engineering Technician Name Role Phone Elsa Espitia MD Primary Care Provider [phone] Social History Tobacco Use Types Packs/Day Years [...] Insurance Medicaid [place] Care Teams Senior Engineering Technician Relationship Specialty Start Date End Date Elsa Espitia MD PCP - General Family Medicine 03/20/22
== END 2025-07-01 11:26 | disposition home or self-care (01) ==
LOC: HO.HKA 11:05
PROVIDERS: PCP Family Medicine; Visit Provider Internal Medicine Critical Care Medicine
DX: N20.0 Calculus of kidney (principal); N18.9 Chronic kidney disease, unspecified
CPT/HCPCS: 99214

== ENCOUNTER → 2025-07-01 11:04 | Outpatient (BNVA) | payer MEDICAID, SELFPAY | PROVIDERS: PCP Family Medicine; Visit Provider Internal Medicine Critical Care Medicine | DX: N20.0 Calculus of kidney (principal); I12.9 Hypertensive chronic kidney disease with stage 1 through stage 4 chronic kidney disease, or unspecified chronic kidney disease; E11.22 Type 2 diabetes mellitus with diabetic chronic kidney disease; E11.10 Type 2 diabetes mellitus with ketoacidosis without coma; N18.30 Chronic kidney disease, stage 3 unspecified; Z79.85 Long-term (current) use of injectable non-insulin antidiabetic drugs | CPT/HCPCS: 99212 ==

== ENCOUNTER 2025-07-02 13:01 | Outpatient (REF) | payer MEDICAID, SELFPAY ==
--- OUTSIDE RECORDS SUMMARY | 2025-07-02 13:06 | XMS_ITS | Clinical Summary ---
Author Organization [facility] Address [address] [place] [address] Phone Care Team Providers Care Water Technician Name Role Phone Unavailable Primary Care Provider [...] It is not the complete legal health record.[facility]
--- OUTSIDE RECORDS SUMMARY | 2025-07-02 13:06 | XMS_ITS | Encounter Summary ---
Author Organization [employer] Address [address] [place] [address] Care Team Providers Care Foot Miter Operator Name Role Phone Elsa Espitia MD Primary Care Provider [phone] Reason for Visit * Reason Onset Date Comments bite block maker appt no show 06/11/2025 Encounter Details Date Type Department Care Team (Late st Contact Info) Description 06/11/2025 Telephone C [facility] [address] [place] [address] Elsa Espitia MD [address] [place] [address] bite block maker appt no show Social History Tobacco Use [...] 11:52 AM EDT Pt NCNS to initial YIELD IMPROVEMENT ENGINEER NV. TC to pt via PI ID# [id number]. Appt r/s to 08/06/25 @ 2;30pm at [facility]. documented in this encounter Plan of Treatment Upcoming Encounters Date Type Department Care Team (Late st Contact Info) Description 07/06/2025 1:15 PM EDT Office Visit [facility] [address] [place] [address] Elsa Espitia MD [address] [place] [address] 08/06/2025 2:30 PM EDT Clinical Support [facility] [address] [place] [address] Cha Gonzalez, RN [address] [place] [address] documented as of this encounter Visit Diagnoses Not on filedocumented in this encounter Additional Health Concerns Assessment Noted Time PHQ-9 Depression Total Score: 0 09/18/20 10:38 AM EDT documented as of this encounter Care Teams Foot Miter Operator Relationship Specialty Start Date End Date Elsa Espitia MD [address] [place] [address] PCP - General Family Medicine 04/04/19 Kath White Bell ClerkMobile Tester 03/06/24 documented as of this encounter
--- OUTSIDE RECORDS SUMMARY | 2025-07-02 13:06 | XMS_ITS | Clinical Summary ---
Author Organization [facility] Address [address] [address] Care Team Providers Care Insurance And Benefits Clerk Name Role Phone Elsa Espitia MD Primary Care Provider [phone] Social History Tobacco Use Types Packs/Day Years [...] Insurance Medicaid [place] Care Teams Insurance And Benefits Clerk Relationship Specialty Start Date End Date Elsa Espitia MD PCP - General Family Medicine 03/20/22
[2025-07-02 16:09] LABS: MANUAL DIFF FLAG NO
[2025-07-02 16:11] LABS: Hematocrit 40.1 % (37.0-47.0); Hemoglobin 12.4 g/dl (12.0-16.0); Imm Gran Abs Auto 0.02 X10*3/uL (0.00-0.03); Imm Gran Pct Auto 0.3 % (0.0-0.4); Lymphocytes Absolute Auto 1.6 X10*3/uL (1.2-4.9); Mean Corpuscular HGB Conc 30.9 g/dl (31.0-35.0); Mean Corpuscular Hemoglobin 24.4 pg (27.0-33.0); Mean Corpuscular Volume 78.9 fL (80.0-98.0); NRBC Abs Auto 0.000 X10*3/uL (0.0-0.012); NRBC Pct Auto 0.0 /100WBC (0.0-0.2); Platelet Count 255 X10*3/uL (160-400); Red Blood Count 5.08 X10*6/uL (4.20-5.50); White Blood Count 6.9 X10*3/uL (4.8-10.8)
[2025-07-02 16:43] LABS: Alanine Aminotransferase 23 U/L (0-31); Albumin Level 4.1 g/dL (3.5-5.0); Alkaline Phosphatase 151 U/L (39-117); Anion Gap 13 (12-20); Aspartate Amino Transferase 29 U/L (5-31); Blood Urea Nitrogen 11 mg/dL (9-16); Calcium 9.2 mg/dL (8.4-10.2); Carbon Dioxide 25 mmol/L (22-29); Chloride 104 mmol/L (96-108); Cholesterol 149 mg/dL (<200); Estimated Glomerular Filt Rate 50; HDL Cholesterol 42 mg/dL (>40); Potassium 4.0 mmol/L (3.3-5.1); Sodium 138 mmol/L (135-145); Total Protein 7.3 g/dL (6.5-8.0); Triglycerides 243 mg/dL (<150)
[2025-07-02 17:01] LABS: Thyroid Stimulating Hormone 0.46 uIU/mL (0.32-4.0)
== END 2025-07-02 13:02 | disposition home or self-care (01) ==
LOC: HO.HHCL 13:01
PROVIDERS: PCP Family Medicine; Visit Provider Registered Nurse Psychiatric/Mental Health
DX: Z79.899 Other long term (current) drug therapy (principal)
CPT/HCPCS: 36415; 80053; 80061; 82248; 84436; 84443; 85025

== ENCOUNTER 2025-07-22 13:10 | Outpatient (AMB) | payer MEDICAID, SELFPAY ==
--- NOTE | 2025-07-22 13:21 | MHC.OFFVIS ---
Vital Signs 07/22/25 13:23 Height 5 ft 2 in Weight 139 lb BMI 25.4 BP 104/64 Blood Pressure Location Lt brachial Position Sitting Pulse 95 Pulse Oximetry (%) 98 Oxygen Delivery Method Room Air Intake Visit Reasons: Primary biliary cholangitis Intake Note: Patient follow up for Primary biliary cholangitis, lab and Dexa scan results. Patient cc: middle abdominal pain and bloating, acid refflux on and off, constipation and denies any other GI issues. Carroting Machine Offbearer Required: Yes Carroting Machine Offbearer Name: [id number] Accompanied by: Self / Same As Patient Allergies aspirin (Aspirin) Allergy (Intermediate, Verified 07/22/25 13:20) EYES SWELLING Penicillins Allergy (Intermediate, Verified 07/22/25 13:20) RASH citalopram Allergy (Unknown, Verified 07/22/25 13:20) chest pain Diltiazem HCl Allergy (Unknown, Uncoded 05/19/25 10:18) Unknown HPI HPI Primary biliary cholangitis: Details: Patient is a 59-year-old Arabic-speaking female with PMH of diabetes, hypertension, arthritis, asthma, depression and GERD. She presents for follow up for PBC treatment. The patient reports no new concerns or questions about the PBC diagnosis since the last visit. Recent labs revealed normal vitamin levels, except for mild vitamin A deficiency, which can be corrected through dietary measures. A bone scan performed as part of the workup showed osteopenia. The patient confirmed compliance with vitamin D and calcium supplementation. Chronic constipation was reported as stable on the current regimen (fiber tablets, daily Miralax, and senna at bedtime). The patient denies any worsening GI symptoms or new symptoms. No interim hospitalizations, urgent care visits, or significant events were noted. [facility] Medical History (Updated 07/22/25 @ 16:23 by Tiana Betancourt CNP) Abscess Osteopenia determined by dual energy x-ray photon absorptiometry (DEXA) scan of forearm Primary biliary cholangitis Constipation Former smoker Colon cancer screening Gallbladder polyp Elevated AFP Pleural effusion Bronchopneumonia Diabetes THANH (acute kidney injury) Acute respiratory failure with hypoxia Pneumonia Asthma with acute exacerbation Asthma On beta mariaelena at home Hx of renal calculi Right knee injury Acute anxiety Depression GERD (gastroesophageal reflux disease) HTN (hypertension) Diabetic acidosis, type II Arthritis Surgical History History of hysterectomy Hx of arthroscopy of right knee Hx of cystoscopy Family History Father No problems noted. Mother No problems noted. Maternal Grandmother Cancer Other No family history of coronary artery disease Social History Household Members: None Housing: Apartment Are you a primary senior care provider to a significant other at home: No Do you presently have visiting nurse or other home services: No Alcohol intake: current Alcohol intake frequency: does not drink Patient Tobacco Use Status: Former Tobacco user Years Smoked: 20 +/- Second Hand Smoke Exposure: No service: No Current occupational status: disabled Current occupation: right hand dominant Review of Systems Const Reports as per HPI ENT Reports as per HPI Card Reports as per HPI Resp Reports as per HPI GI Reports as per HPI Reports as per HPI Physical Exam Const General: healthy appearing, no acute distress and well developed Nutritional Appearance: average body habitus Orientation/consciousness: patient oriented x3 HEENT Head: Yes normal to inspection, Yes normocephalic and Yes atraumatic Face and sinus: Yes normal facial exam Eyes General: appearance normal, both eyes and all related structures Neck Neck: Yes normal visual inspection Resp Effort & Inspection: normal respiratory effort, able to speak in complete sentences, no tracheal deviation and symmetric chest movement Auscultation: clear to auscultation bilaterally Cardio Jugular venous distension: no JVD Rate: regular rate Rhythm: regular rhythm Heart sounds: S1 normal heart sound present, S2 normal heart sound present, no gallops and no murmurs GI Inspection: Yes normal to inspection, No distended and Yes obesity Palpation (GI): Soft to palpation, not firm, nontender and No hepatosplenomegaly present Auscultation: normal bowel sounds Neuro General: patient oriented x3 Gait exam (Neuro): Normal gait present Psych Appearance: grossly normal Mental Status: mental status grossly normal Speech and movement: Normal speech and movement present Affect: normal affect Attitude: cooperative Thought process: Normal thought process present Thought content: Normal thought content present Insight: Good insight present (Psych) Judgement: Good judgement present (Psych) Assessment & Plan Assessment & Plan (1) Primary biliary cholangitis: Code(s): K74.3 - Primary biliary cirrhosis Category: Medical Plan: Newly diagnosed, initiation of treatment pending. Test results confirm diagnosis, requiring bile acid therapy to improve bile flow and reduce inflammation. Multiple monthly lab monitoring will assess therapeutic efficacy and safety. Additional Testing: one month repeat labs to include GGT, AST, ALT, bilirubin, and alkaline phosphatase Medications: Initiate bile acid therapy (ursodeoxycholic acid) 400 mg BID (twice daily) based on weight-based calculations. Monitor for GI symptoms as potential side effects ? include diarrhea, constipation, nausea, or bloating as early indicators. Adjust dose if tolerance issues occur. Lifestyle Recommendations: Encouraged patient to set reminders for monthly labs over the first three months and every six months thereafter. Educate on adhering to regular bowel movement monitoring. Follow-Up Plan: In-office visit in six weeks post-treatment initiation; monthly labs for medication monitoring and further scheduling to secure upper endoscopy and colonoscopy appointments. (2) Constipation: Code(s): K59.00 - Constipation, unspecified Category: Medical Qualifiers: Constipation type: slow transit constipation Qualified Code(s): K59.01 - Slow transit constipation Plan: Stable on current regimen. No new/worsening sx; regimen effective. Additional Testing: None indicated. Medications: Continue fiber tabs, Miralax daily, senna qhs. Lifestyle: Maintain adequate dietary fiber/hydration. Referrals/Coordination: None. F/u: Monitor for changes; reassess at next GI visit. (3) Osteopenia determined by dual energy x-ray photon absorptiometry (DEXA) scan of forearm: Code(s): M85.839 - Other specified disorders of bone density and structure, unspecified forearm Category: Medical Plan: Stable. No active changes; continue calcium and vitamin D supplementation. Bone scan follow-up recommended in two years. Additional Testing: None at this time, unless symptoms or fracture risk elevates. Medications: Maintain current regimen of vitamin D and calcium supplements. Lifestyle Recommendations: Recommend avoidance of alcohol and tobacco, continuation of weight-bearing exercises such as walking (option of weighted vest). Discuss fall prevention strategies (secure rugs, clutter-free areas, adequate lighting). Referrals / Coordination of Care: None required. Follow-Up Plan: Re-evaluate osteopenia at next routine visit and ensure compliance with preventative measures. (4) Abscess: Code(s): L02.91 - Cutaneous abscess, unspecified Category: Medical Plan: Affecting right mid back. Drained abscess requiring urgent evaluation. Further assessment is required to ensure the core of the abscess is extracted and appropriate antibiotic therapy initiated. Additional Testing: Primary care or urgent care follow-up needed for immediate management. Medications: Initiate antibiotics, as deemed appropriate by urgent care evaluation for infection control. Lifestyle Recommendations: None specific; patient to monitor healing of lesion after clinical assessment. Referrals / Coordination of Care: Refer to primary care or urgent care for immediate evaluation. Follow-Up Plan: None scheduled under gastroenterology, as concern falls outside department scope. Plan Follow-up 6 weeks or sooner as needed Time: I spent a total of 40 minutes on the date of encounter which includes: Preparing to see the patient (reviewed previous documentation, test results and medical history) Performing a medically appropriate exam and/or evaluation Ordering medications, tests, and procedures Documenting clinical information in the health record Orders: Orders Vitamin A 1 Month K74.3 - Primary biliary cirrhosis Comprehensive Kathryn. Panel Fast 1 Month K74.3 - Primary biliary cirrhosis Gamma Glutamyl Transpeptidase 1 Month K74.3 - Primary biliary cirrhosis Medications: New ursodiol Take one tablet twice daily with food. Avoid aluminum-based antacids. 400 mg PO BID 60 caps 1RF Coding Level of Care Code Established Pt Est Pt Level 5 (00414) Patient Type Established Diagnoses Primary biliary cholangitis K74.3 Slow transit constipation K59.01 Constipation type: slow transit constipation Osteopenia determined by dual energy x-ray photon absorptiometry (DEXA) scan of forearm M85.839 Abscess L02.91
[2025-07-22 13:23] VITALS: BP 104/64; PULSE 95; O2SAT 98; BMI 25.4
--- OUTSIDE RECORDS SUMMARY | 2025-07-22 13:49 | XMS_ITS | Encounter Summary ---
Author Organization [employer] Address [address] [place] [address] Care Team Providers Care Egg Pasteurizer Name Role Phone Elsa Espitia MD Primary Care Provider [phone] Reason for Visit * Reason Onset Date Comments spd manager appt no show 06/11/2025 Encounter Details Date Type Department Care Team (Late st Contact Info) Description 06/11/2025 Telephone C [facility] [address] [place] [address] Esla Espitia MD [address] [place] [address] spd manager appt no show Social History Tobacco Use [...] 11:52 AM EDT Pt NCNS to initial FREE LANCE MODEL NV. TC to pt via PI ID# [id number]. Appt r/s to 08/06/25 @ 2;30pm at [facility]. documented in this encounter Plan of Treatment Upcoming Encounters Date Type Department Care Team (Late st Contact Info) Description 08/06/2025 2:30 PM EDT Clinical Support [facility] [address] [place] [address] Cha Gonzalez RN [address] [facility] [place] [address] documented as of this encounter Visit Diagnoses Not on filedocumented in this encounter Additional Health Concerns Assessment Noted Time PHQ-9 Depression Total Score: 0 09/18/20 10:38 AM EDT documented as of this encounter Care Teams Egg Pasteurizer Relationship Specialty Start Date End Date Elsa Espitia MD [address] [place] [address] PCP - General Family Medicine 04/04/19 Kaht White Hydraulic Controls TechnicianHeel Top Lift Splitter 03/06/24 documented as of this encounter
--- OUTSIDE RECORDS SUMMARY | 2025-07-22 13:49 | XMS_ITS | Clinical Summary ---
Author Organization [facility] Address [address] [place] [address] Phone Care Team Providers Care Turntable Man Name Role Phone Unavailable Primary Care Provider [...] It is not the complete legal health record.[facility]
--- OUTSIDE RECORDS SUMMARY | 2025-07-22 13:49 | XMS_ITS | Encounter Summary ---
Author Organization [employer] Address [address] [place] [address] Care Team Providers Care Director Of Undergraduate Admissions Name Role Phone Elsa Espitia MD Primary Care Provider [phone] Encounter Details Date Type Department Care Team ([facility] st Contact Info) Description 07/22/2024 Orders Only [facility] MEDICINE [address] [place], [place] [phone] Elsa Espitia MD [address] [place], [place] [phone] Social History Tobacco Use Types Packs/Day Years [...] t he electric, gas, oil or water [employer] threatened to shut off services in your [...] Description 08/06/2025 2:30 PM EDT Clinical Support [facility] MED & PEDS [address] [place] [address] Cha Gonzalez, SONNY [address] [place] [address] documented as of this encounter Visit Diagnoses Not on filedocumented in this encounter Additional Health Concerns Assessment Noted Time PHQ-9 Depression Total Score: 0 06/01/20 23 10:46 AM EDT documented as of this encounter Care Teams Director Of Undergraduate Admissions Relationship Specialty Start Date End Date Elsa Espitia MD [address] [place] [address] PCP - General Family Medicine 04/04/19 Kath White Punch Press Operator HelperTag Clerk 03/06/24 documented as of this encounter
--- OUTSIDE RECORDS SUMMARY | 2025-07-22 13:49 | XMS_ITS | Clinical Summary ---
Author Organization [facility] Facility Address [address] [address] Care Team Providers Care Fruit Or Nut Farm Worker Name Role Phone Elsa Espitia MD Primary Care Provider [phone] Social History Tobacco Use Types Packs/Day Years [...] Insurance Medicaid [place] Care Teams Fruit Or Nut Farm Worker Relationship Specialty Start Date End Date Elsa Espitia MD PCP - General Family Medicine 03/20/22
--- OUTSIDE RECORDS SUMMARY | 2025-07-22 13:49 | XMS_ITS | Encounter Summary ---
Author Organization [employer] Address [address] [place] [address] Care Team Providers Care Division Traffic Superintendent Name Role Phone Elsa Espitia MD Primary Care Provider [phone] Reason for Visit * Reason Onset Date Comments Medication Question 07/22/2024 Encounter Details Date Type Department Care Team ([facility] st Contact Info) Description 07/22/[address] [facility] MEDICINE [address] [place], [place] [phone] Elsa Espitia MD [address] [place], [place] [phone] Medication Question Social History Tobacco Use Types [...] EDT TC placed to pt with a [place] supervisor gate services to inquire which prescription pt needs a refill on. Per pt, the insulin pen needle (Pentips) 32G X 4 mm is needed. Medication queued to PCP for review * Telephone Encounter - Angel Gallo - 07/22/2024 1:44 PM EDT Tc from pt requesting needles for checking blood sugar. If any questions you can contact pt at [phone]. (Setswana Speaker) documented in this encounter Plan of Treatment Upcoming Encounters Date Type Department Care Team (Late st Contact Info) Description 08/06/2025 2:30 PM EDT Clinical Support [facility] [address] [place] [address] Cha Gonzalez, SONNY [address] [place] [address] documented as of this encounter Visit Diagnoses Not on filedocumented in this encounter Additional Health Concerns Assessment Noted Time PHQ-9 Depression Total Score: 0 06/01/20 23 10:46 AM EDT documented as of this encounter Care Teams Division Traffic Superintendent Relationship Specialty Start Date End Date Elsa Espitia MD [address] [place] [address] PCP - General Family Medicine 04/04/19 Kath White Batching OperatorPlumber Gasfitter 03/06/24 documented as of this encounter
--- OUTSIDE RECORDS SUMMARY | 2025-07-22 13:49 | XMS_ITS | Encounter Summary ---
Author Organization [employer] Address [address] [place] [address] Care Team Providers Care Image Archivist Name Role Phone Elsa Espitia MD Primary Care Provider [phone] Reason for Visit * Reason Onset Date Comments Med Refill 07/22/2024 Encounter Details Date Type Department Care Team ([facility] st Contact Info) Description 07/22/[address] [facility] MEDICINE [address] [place], [place] [phone] Elsa Espitia MD [address] [place], [place] [phone] Med Refill Social History Tobacco Use Types [...] Miscellaneous Notes * Telephone Encounter - Angel Gallo - 07/22/2024 1:43 PM EDT TC from pt requesting medication refill. Medications needing refill: traMADol (Ultram) 50 MG tablet To be sent to: [facility] Pharmacy documented in this encounter Plan of Treatment Upcoming Encounters Date Type Department Care Team (Late st Contact Info) Description 08/06/2025 2:30 PM EDT Clinical Support [facility] MED & PEDS [address] [place] [address] Cha Gonzalez, RN [address] [place] [address] documented as of this encounter Visit Diagnoses Not on filedocumented in this encounter Additional Health Concerns Assessment Noted Time PHQ-9 Depression Total Score: 0 06/01/20 23 10:46 AM EDT documented as of this encounter Care Teams Image Archivist Relationship Specialty Start Date End Date Elsa Espitia MD [address] [place] [id number] PCP - General Family Medicine 04/04/19 Kath White Steam Pipe FitterTypesetters Printer 03/06/24 documented as of this encounter
--- OUTSIDE RECORDS SUMMARY | 2025-07-22 13:50 | XMS_ITS | Encounter Summary ---
Author Organization [employer] Address [address] [place] [address] Care Team Providers Care Financial Director Name Role Phone Elsa Espitia MD Primary Care Provider [phone] Reason for Visit * Reason Comments Med Refill Encounter Details Date Type Department Care Team ([facility] st Contact Info) Description 09/27/2023 Refill [facility] MEDICINE [address] [place], [place] [phone] Curt Carnes MD [address] [place], [place] [phone] Gastroesophageal reflux disease, unspecified whether esophagitis present [...] Description 08/06/2025 2:30 PM EDT Clinical Support [facility] MED & PEDS [address] [place] [address] Cha Gonzalez, RN [address] [place] [address] documented as of this encounter Visit Diagnoses Diagnosis Gastroesophageal reflux disease, unspecified whether esophagitis present documented in this encounter Additional Health Concerns Assessment Noted Time PHQ-9 Depression Total Score: 0 06/01/20 23 10:46 AM EDT documented as of this encounter Care Teams Financial Director Relationship Specialty Start Date End Date Elsa Espitia MD [address] [place] [address] PCP - General Family Medicine 04/04/19 Kath White Food Science ProfessorField Specialist 03/06/24 documented as of this encounter
--- OUTSIDE RECORDS SUMMARY | 2025-07-22 13:50 | XMS_ITS | Clinical Summary ---
Author Organization [employer] Address [address] [place] [address] Care Team Providers Care Registered Nurse Fetal Name Role Phone Elsa Juarez MD Primary Care Provider [phone] Allergies Active Allergy Reactions Criticality Noted Date Comments Aspirin 06/23/2013 Citalopram 06/23/2013 Other reaction(s): Chest pain Diltiazem 06/23/2013 Iodinated Contrast Media Itching,Rash Low 5 Nsaids 06/23/2013 Penicillins 06/23/2013 Medications * This document contains information received from the source organization and may not represent a complete record from that organization. Proventil HFA 108 (90 Base) MCG/ACT inhaler [...] BY MOUTH EVERY DAY FOR 30 DAYS 024 Active Incruse Ellipta 62.5 MCG/ACT aerosol powder TAKE 1 PUFF BY MOUTH EVERY DAY 024 Active albuterol (2.5 MG/3ML) 0.083% nebulizer [...] A WEEK DIRECTED 2 mL 025 Active metFORMIN XR (Glucophage-XR) 500 MG 24 hr tabletIndicatio ns:Type 2 diabetes mellitus with other specified complication, with long-term current use of insulin (CMS/HCC) TAKE 1 TABLET BY MOUTH TWICE DAILY IN THE MORNING AND IN THE EVENING WITH MEALS 180 tablet 3 025 Active sertraline (Zoloft) 100 MG tabletIndicatio ns:Depression, unspecified depression type TAKE 1 TABLET BY MOUTH AT BEDTIME 90 tablet 3 025 Active famotidine (Pepcid) 20 MG tablet TAKE 1 TABLET BY MOUTH AT BEDTIME 90 tablet 3 025 Active atorvastatin (Lipitor) 20 MG tablet [...] EVENING WITH ORANGE JUICE 180 tablet 3 025 Active metoprolol tartrate (Lopressor) 50 MG tablet TAKE 1 TABLET BY MOUTH TWICE DAILY IN THE MORNING AND IN THE EVENING WITH MEALS 180 tablet 3 Active Oyster Shell Calcium 500 MG tabletIndicatio ns:Other specified personal risk factors, not elsewhere classified TAKE 1 TABLET BY MOUTH TWICE DAILY IN THE MORNING AND IN THE EVENING 180 tablet 2 Active Pentips Generic Pen Morning View 32G X 4 MM misc USE ONCE DAILY DIRECTED 100 each 3 Active cyanocobalamin (Vitamin B-12) 1000 MCG tablet TAKE 1 TABLET BY MOUTH EVERY MORNING 90 tablet 3 Active ergocalciferol (Vitamin D2) 1.25 MG (29449 UT) capsuleIndicati ons:Vitamin D deficiency TAKE 1 CAPSULE BY MOUTH ONCE WEEKLY ON SUNDAY MORNING 12 capsule 1 Active insulin pen needle (Pentips) 32G x 4 mm misc USE DAILY WITH INSULIN 100 each 3 Active TRUEplus Lancets 33G misc TEST BLOOD SUGAR TWICE A DAY 100 each 11 Active FREESTYLE LITE test strip Check blood glucose three times daily and as needed 100 strip 11 Active diphenhydrAMINE (Dacia-Dryl) 25 MG tabletIndicatio ns:Allergic reaction, subsequent encounter TAKE 1 OR 2 TABLETS BY MOUTH AT BEDTIME IF NEEDED FOR ITCHING OR FOR ALLERGIES 60 tablet 025 Active melatonin 3 MG tablet TAKE 1 TO 2 TABLETS BY MOUTH 2 HOURS BEFORE BEDTIME 60 tablet 3 025 Active sucralfate (Carafate) 1 g tabletIndicatio ns:Gastroesopha geal reflux disease, unspecified whether esophagitis present TAKE 1 TABLET BY MOUTH FOUR TIMES DAILY ON AN EMPTY STOMACH BEFORE MEALS AND AT BEDTIME 120 tablet 3 025 Active Farxiga 10 MG TAKE 1 TABLET BY MOUTH EVERY MORNING 90 tablet 025 Active hydrOXYzine pamoate (Vistaril) 25 MG capsule Take 1 capsule (25 mg) by mouth at bedtime. 30 capsule 025 Active amitriptyline (Elavil) 50 MG tabletIndicatio ns:Depression, unspecified depression type,Insomnia, unspecified type,Chronic pain due to trauma TAKE 1 TABLET BY MOUTH AT BEDTIME 30 tablet 1 025 Active traZODone (Desyrel) 50 MG tablet TAKE 1 TABLET BY MOUTH AT BEDTIME 30 tablet 1 025 Active hydrOXYzine pamoate (Vistaril) 25 MG capsule TAKE 1 CAPSULE BY MOUTH AT BEDTIME 30 capsule 1 025 Active traMADol (Ultram) 50 MG tabletIndicatio ns:Chronic low back pain, unspecified back pain laterality, unspecified whether sciatica present Take 1 tablet (50 mg) by mouth every 8 (eight) hours. 30 tablet 025 Active calcium carbonate (Os-Alberto) 1250 (500 Ca) MG tabletIndicatio ns:At high risk for osteoporosis Take 1 tablet by mouth twice daily in the morning and in the evening 180 tablet 2 023 2024 Discontinued(M ed list cleanup (will not trigger notification to Pharmacy)) predniSONE (Deltasone) 20 MG tabletIndicatio ns:Allergic reaction, subsequent encounter 2 tabs po daily for 5 days 10 tablet 025 2024 Discontinued(M ed list cleanup (will not trigger notification to Pharmacy)) gabapentin (Neurontin) 300 MG capsule TAKE 1 CAPSULE BY MOUTH AT BEDTIME. MAY INCREASE TO 2 CAPSULES AT BEDTIME AFTER 1 WEEK. 60 capsule 11 025 2024 Discontinued(M ed list cleanup (will not trigger notification to Pharmacy)) lisinopril 2.5 MG tablet TAKE 1 TABLET BY MOUTH EVERY MORNING 90 tablet 3 025 2024 Discontinued(D iscontinued by another clinician) traZODone (Desyrel) 50 MG tablet TAKE 1 TABLET AT BEDTIME 30 tablet 1 025 2024 Discontinued amitriptyline (Elavil) 50 MG tabletIndicatio ns:Depression, unspecified depression type,Insomnia, unspecified type,Chronic pain due to trauma TAKE 1 TABLET AT BEDTIME 30 tablet 1 025 2024 Discontinued traMADol (Ultram) 50 MG tabletIndicatio ns:Chronic low back pain, unspecified back pain laterality, unspecified whether sciatica present TAKE 1 TABLET BY MOUTH EVERY 8 HOURS 30 tablet 06/13/01 Discontinued(R eorder (will not trigger notification to Pharmacy)) hydrOXYzine pamoate (Vistaril) 25 MG capsule TAKE 1 CAPSULE BY MOUTH AT BEDTIME 30 capsule 025 2024 Discontinued doxycycline (Vibra-Tabs) 100 MG tablet Take 1 tablet (100 mg) by mouth 2 times daily for 10 days. Take with a full glass of water and do not lie down for at least 30 minutes after. 20 tablet 025 2024 Active Problems Problem Noted Date Diagnosed Date Primary biliary cholangitis 07/12/2025 Assessment & Plan (07/12/2025 7:02 PM EDT): - [facility], Dx in May 2025 - continue following recommendations per GI Chronic liver disease 12/29/2024 Assessment & Plan (03/31/2025 12:56 PM EDT): - following with [facility] - hepatomegaly noted on US - likely MASLD - work on healthy diet - upcoming appointment for CT scan Assessment & Plan (12/29/2024 11:02 PM EST): - following with [facility] - hepatomegaly noted on US - [...] & Plan (03/31/2025 1:09 PM EDT): -current [facility] provider: [facility] -current medications: clonidine; hydroxyzine; sertraline; amitriptyline -will add trazodone 50mg at bed time for insomnia -hydroxyzine was decreased due to prolonged QT -she was able to contract her safety today Assessment & Plan (09/18/2024 12:31 PM EDT): -current [facility] provider: [facility] -current medications: clonidine; hydroxyzine; sertraline; amitriptyline -will add trazodone 50mg at bed time for insomnia -hydroxyzine was decreased due to prolonged QT -she was able to contract her safety today Assessment & Plan (02/08/2024 5:53 PM EDT): -current [facility] provider: [facility] -current medications: clonidine; hydroxyzine; sertraline; amitriptyline -hydroxyzine was decreased due to prolonged QT -she was able to contract her safety today Assessment & Plan (07/21/2023 7:09 AM EDT): -current [facility] provider: [facility] -current medications: clonidine; hydroxyzine; sertraline; amitriptyline -hydroxyzine was decreased due to prolonged QT -she was able to contract her safety today Assessment & Plan (04/05/2023 6:21 PM EDT): -current [facility] provider: [facility] -current medications: clonidine; hydroxyzine; sertraline; amitriptyline -incease amitriptyline to 50 mg qhs for insomnia -she was able to contract her safety today Chronic pain of right knee 04/05/2023 Assessment & Plan (07/12/2025 7:06 PM EDT): -s/p right knee arthroscopy and partial lateral meniscectomy [place] [address] Cole -following with [facility] in May 2025 -s/p hyaluronate derivative injection -seen by [facility] in Jul 2021, pt was suggested to have total knee replacement of right knee. -Limited analgesic options due to ASA allergy and Hx substance use d/o -Continue APAP prn -Judicious use of tramadol Assessment & Plan (04/06/2025 9:09 AM EDT): -s/p right knee arthroscopy and partial lateral meniscectomy in [place] [address] Cole -Seen by [facility] in Aug 2019 -Waiting for hyaluronate [...] Nov [address] Cole -Seen by [facility] in Aug 2019 -Waiting for hyaluronate [...] Nov [address] Cole -Seen by [facility] in Aug 2019 -Waiting for hyaluronate [...] Nov [address] Cole -Seen by [facility] in Aug 2019 -Waiting for hyaluronate [...] Nov [address] Cole -Seen by [facility] in Aug 2019 -Waiting for hyaluronate [...] Nov [address] Cole -Seen by [facility] in Aug 2019 -Waiting for hyaluronate derivative injection -Limited analgesic options due to ASA allergy and Hx substance use d/o -Continue APAP prn -Judicious use of tramadol -seen by [facility] in Jul 2021, pt is expected to have total knee replacement of right knee Type 2 diabetes mellitus wit h kidney complication, with long-term current use of insulin 04/05/2023 Assessment & Plan (07/12/2025 6:58 PM EDT): - A1c is 7.3% on 07/06/25, slight increase from 7.1% on 03/31/25 - Continue Metformin 500 mg bid with [...] on lifestyle modifications - Last eye exam: Nov 2024, [facility], no diabetic retinopathy - Last foot exam: 12/23/24 tinea pedis -Last microalbumin test: 12/23/24 UACR nml. -Last Lipid profile: 12/23/24 Assessment & Plan (03/31/2025 1:43 PM EDT): [...] kidney disease (CKD) 04/05/2023 Assessment & Plan (07/12/2025 7:00 PM EDT): - following with commissions analyst - likely prerenal component since her renal function improved from CKD3 to CKD2 after tapering down her antihypertensives - avoid nephrotoxic drugs Assessment & Plan (04/01/2025 9:57 PM EDT): [...] tunnel release surgery; patient was seen for bottling attendant for clearance. Patient states she has not [...] 12:56 PM EDT): Pt is following w/ associate professor of management, last seen on 11/18/23. -Last exacerbation in February 2022, acute respiratory failure with pneumonia, hospitalized in [facility] -Maintenance medication: fluticasone furonate / vilanterol (Breo) and umeclidinium (Incruse) -Treatment Hx: Previously Alvesco and budesonide / formoterol (Symbicort) -Rescue medication: albuterol HFA and nebulizer -Congratulated on smoking cessation effort, encourage to continue Assessment & Plan (12/29/2024 11:00 PM EST): Pt is following w/ associate professor of management, last seen on 11/18/23. -Last exacerbation in February 2022, acute respiratory failure with pneumonia, hospitalized in [facility] -Maintenance medication: fluticasone furonate / vilanterol (Breo) and umeclidinium (Incruse) -Treatment Hx: Previously Alvesco and budesonide / formoterol (Symbicort) -Rescue medication: albuterol HFA and nebulizer -Congratulated on smoking cessation effort, encourage to continue Assessment & Plan (09/18/2024 12:28 PM EDT): Pt is following w/ associate professor of management, last seen on 11/18/23. -Last exacerbation in February 2022, acute respiratory failure with pneumonia, hospitalized in [facility] -Maintenance medication: fluticasone furonate / vilanterol (Breo) and umeclidinium (Incruse) -Treatment Hx: Previously Alvesco and budesonide / formoterol (Symbicort) -Rescue medication: albuterol HFA and nebulizer -Congratulated on smoking cessation effort, encourage to continue Assessment & Plan (02/08/2024 5:58 PM EDT): Pt is following w/ associate professor of management, last seen on 11/18/23. -Last exacerbation in February 2022, acute respiratory failure with pneumonia, hospitalized in [facility] -Maintenance medication: fluticasone furonate / vilanterol (Breo) and umeclidinium (Incruse) -Treatment Hx: Previously Alvesco and budesonide / formoterol (Symbicort) -Rescue medication: albuterol HFA and nebulizer -Congratulated on smoking cessation effort, encourage to continue Assessment & Plan (07/21/2023 6:58 AM EDT): Pt is following w/ associate professor of management, last seen on 05/25/22. -Last exacerbation in February 2022, acute respiratory failure with pneumonia, hospitalized in [facility] -Maintenance medication: Symbicort -Treatment Hx: Previously Alvesco -Rescue medication: albuterol HFA and nebulizer -Congratulated on smoking cessation effort, encourage to continue Assessment & Plan (04/05/2023 6:11 PM EDT): Pt is following w/ associate professor of management, last seen on 05/25/22. -Last exacerbation in February 2022, acute respiratory failure with pneumonia, hospitalized in [facility] -Maintenance medication: Previously Alvesco, but she has not had one for a while. Start Symbicort. -Rescue medication: albuterol HFA and nebulizer -Congratulated on smoking cessation effort, encourage to continue Assessment & Plan (02/20/2023 5:31 AM EDT): Pt is following w/ associate professor of management, last seen on 05/25/22. -Last exacerbation in February 2022, acute respiratory failure with pneumonia, hospitalized in [facility] -Maintenance medication: Symbicort -Rescue medication: albuterol HFA [...] recurrence Essential hypertension 09/06/2015 Assessment & Plan (07/12/2025 6:55 PM EDT): -Goal BP < 130/80 per ACC/AHA. BP within acceptable range today, low BP lately -Encouraged to work on life style modifications. -Continue checking BP at home -Continue clonidine 0.1 mg qhs (for both insomnia and HTN) -Discontinue lisinopril 2.5 mg daily due to soft BP -Continue metoprolol tartrate 50 mg bid. -Follow up in 3-6 mo or sooner if any problem arises Assessment & Plan (03/31/2025 12:56 PM EDT): [...] - Evaluated by both pain management and demolition specialist, recommending injection treatment which patient no longer desires. - Currently prescribed lidocaine patch, gabapentin (for both chronic pain of knee, carpal tunnel syndrome, and chronic back pain), and tramadol. - Reviewed judicious use of medications. -Referred to a demolition specialist; consider referring her to staff trainer - Patient declined injection treatment referral again [...] - Evaluated by both pain management and demolition specialist, recommending injection treatment which patient no longer desires. - Currently prescribed lidocaine patch, gabapentin (for both chronic pain of knee, carpal tunnel syndrome, and chronic back pain), and tramadol. - Reviewed judicious use of medications. -Referred to a demolition specialist; consider referring her to staff trainer - Patient declined injection treatment referral again [...] - Rx Lidoderm Patch -Referred to a demolition specialist in Sep 2022 Assessment & Plan [...] - Rx Lidoderm Patch -Referred to a demolition specialist; consider referring her to staff trainer Assessment & Plan (09/21/2024 5:28 AM EDT): [...] - Evaluated by both pain management and demolition specialist, recommending injection treatment which patient no longer desires. - Currently prescribed lidocaine patch, gabapentin (for both chronic pain of knee, carpal tunnel syndrome, and chronic back pain), and tramadol. - Reviewed judicious use of medications. -Referred to a demolition specialist; consider referring her to staff trainer - Patient declined injection treatment referral again and agreed to be referred to PT. Diabetes mellitus, type 2 07/17/2012 Assessment & Plan (07/10/2025 10:55 PM EDT): - A1c 7.3% on 07/06/2025, increase from 7.1% on 03/31/25 - Continue Metformin 500 mg bid with [...] -Last Lipid profile: 12/23/24 Assessment & Plan (04/06/2025 9:12 AM EDT): [...] are up-to-date Dyslipidemia 07/17/2012 Assessment & Plan (07/12/2025 6:55 PM EDT): - current medication: atorvastatin 20 mg at bedtime - last lipid profile 12/23/24 - continue working on lifestyle modification Assessment & Plan (04/06/2025 9:12 AM EDT): [...] B12 deficiency 07/17/2012 Osteoarthritis of knee 07/17/2012 Assessment & Plan (07/12/2025 7:03 PM EDT): - following with [facility] Pain in right leg 07/17/2012 Assessment & Plan (02/20/2023 5:40 AM EDT): -s/p right knee arthroscopy and partial lateral meniscectomy in [place] [address] Cole -Seen by [facility] in Aug 2019 -Waiting for hyaluronate [...] w QTC prolongation( hydroxyzine) -referred today to bottling attendant to further eval QTC prolongation -I called today her previous bottling attendant who was not concern w prolongation for surgery but last eval pt 2 years ago -I would rather have a new evaluation to confirm there are no cardiac risk associated for this nor urgent surgery.-requested referral to print support specialist to be done as soon as [...] Encounters Date Type Department Care Team Description 07/10/2025 Orders Only [facility] [place] [address] Elsa Juarez MD 07/09/2025 Telephone [facility] [place] [address] Elsa Juarez MD Medication Question 07/09/2025 Refill [facility] [place] [address] Elsa Juarez MD Chronic low back pain, unspecified back pain laterality, unspecified whether sciatica present 07/06/2025 1:15 PM EDT Office Visit [facility] [place] [address] Elsa Juarez MD Type 2 diabetes mellitus with stage 3 chronic kidney disease, with long-term current use of insulin, unspecified whether stage 3a or 3b CKD (CMS/HCC) (Primary Dx); Essential hypertension; Stage 3a chronic kidney disease (CMS/HCC); Dyslipidemia; Type 2 diabetes mellitus with stage 3b chronic kidney disease, with long-term current use of insulin (CMS/HCC); Primary biliary cholangitis (CMS/HCC); Chronic pain of right knee; Osteoarthritis of both knees, unspecified osteoarthritis type; Mass of skin of back 07/06/2025 Travel 07/06/2025 Refill [facility] [place] [address] Elsa Juarze MD 07/03/2025 Telephone [facility] [place] [address] Elsa Juarez MD chart prep 07/01/2025 Refill [facility] [place] [address] Elsa Juarez MD Depression, unspecified depression type; Insomnia, unspecified type; Chronic pain due to trauma 06/24/2025 Orders Only GENERIC EXTERNAL DATA DEPARTMENT Provider, Generic External Data 06/19/2025 Travel 06/11/2025 Orders Only [facility] External Provider, [facility] 06/11/2025 Refill [facility] [address] [place] [address] Elsa Juarez MD 06/11/2025 Telephone [facility] [address] [place] [address] Elsa Juarez MD 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 appt no show 06/11/2025 Refill [facility] [address] [place] [address] Elsa Juarez MD 06/08/2025 Refill [facility] [address] [place] [address] Curt Carnes MD 05/13/2025 Travel 05/13/2025 Telephone [facility] [address] [place] [address] Cha Gonzalez RN 05/13/2025 Telephone [facility] [address] [place] [address] Cha Gonzalez RN 05/13/2025 Refill [facility] [address] [place] [address] Elsa Juarez MD Chronic low back pain, unspecified back pain laterality, unspecified whether sciatica present 05/12/2025 Telephone [facility] [address] [place] [address] Elsa Juarez MD June05/11/2025 Refill [facility] [address] [place] [address] Elsa Juarez MD 05/06/2025 Refill [facility] [address] [place] [address] Elsa Juarez MD Depression, unspecified depression type; Insomnia, unspecified type; Chronic pain due to trauma 05/04/2025 Refill [facility] [address] [place] [address] Elsa Juarez MD 04/30/2025 Refill [facility] [address] [place] [address] Elsa Juarez MD Gastroesophageal reflux disease, unspecified whether esophagitis present from Last 3 Months Immunizations Immunization Administration [...] Access Q2 Not on file 07/28/2024 Comments No Sex and Gender Information Value Date Recorded Sex Assigned at Female 09/25/2022 10:18 AM EDT Legal Sex Female 10:18 AM EDT Gender Identity Female 09/25/2022 10:18 AM EDT Sexual Orientation Straight 09/25/2022 10 :18 AM EDT Last Filed Vital Signs Vital Sign Reading Time Taken Comments Blood Pressure 108/70 07/06/2025 1:31 PM EDT Pulse 92 07/06/2025 1:12 PM EDT Temperature 36.1 C (96.9 F) 07/06/2025 1:12 PM EDT Respiratory Rate 16 07/06/2025 1:12 PM EDT Oxygen Saturation 98% 07/06/2025 1:12 PM EDT Inhaled Oxygen Concentration - - Weight 64.4 kg (142 lb) 07/06/2025 1:12 PM EDT Height 152.4 cm (5') 07/06/2025 1:12 PM EDT Body Mass Index 27.73 07/06/2025 1:12 PM EDT Plan of Treatment Upcoming Encounters Date Type Department Care Team (Late st Contact Info) Description 08/06/2025 2:30 PM EDT Clinical Support [facility] [address] [place] [address] Cha Gonzalez, SONNY [address] [place] [address] Health Maintenance Due Date Last Done Comments CT Colonography 1966 Colonoscopy 1966 Colorectal Cancer Screening 1966 FIT DNA/Cologuard 1966 FIT 1966 FOBT 1966 Sigmoidoscopy 1966 Pap Smear 1987 HPV/Cotest 1996 Hepatitis A Vaccines (2 of 3 - Hep A Twinrix risk 3-dose series) 06/14/2016 05/17/2016 COVID-19 Vaccine (4 - season) 2024 12/16/2021, 06/14/2021, 05/23/2021 Influenza Vaccine (#1) 2025 , 10/17/2023, 08/28/2022, Additional history exists Alcohol/Substance Use Screening 09/18/2025 09/18/2024 Depression Screening 09/18/2025 09/18/2024, 09/18/20 SDOH Screening 09/18/2025 09/18/2024 Diabetes: Hemoglobin A1C 10/06/2025 025, 03/31/2025, 12/23/2024, Additional history exists Diabetes: Foot Exam 12/23/2025 12/23/2024, 10/17/2023, 10/17/2023, Additional history exists Lipid Panel 12/23/2025 12/23/2024, 03/26, 06/27/2022, Additional history exists DTaP/Tdap/Td Vaccines (3 - Td or Tdap) 05/17/2026 05/17/2016, 09/25/2012, 08/11/2009 Disability Screening 07/06/2026 07/06/2025 Tobacco Screening 07/12/2026 07/12/2025 Eye Exam 10/27/2026 10/27/2024, 12/0 12/2023, 10/27/2024, Additional history exists Mammogram 04/06/2027 04/06/2025, 04/1 11/2023, 05/04/2022, Additional history exists RSV Patients and Patients Aged 60 years or older (1 - 1-dose 75+ series) 2041 Hepatitis B Vaccines Completed 05/17/2016, 12/21/2015, 08/18/2014 Zoster Vaccines Completed 10/11/2020, 07/19/2020 HIV Screening Completed 03/30/2021 Hepatitis C Screening Completed 03/30/2021 Pneumococcal Vaccine: 50+ Years Completed 12/23/2024, 05/17/2016, [...] Comments POCT GLYCOSYLATED HEMOGLOBIN (HGB A1C) Routine 07/06/2025 1:14 PM EDT Type 2 diabetes mellitus with stage 3 chronic kidney disease, with long-term current use of insulin, unspecified whether stage 3a or 3b CKD (CMS/HCC) POCT GLUCOSE Routine 07/06/2025 1:11 PM EDT Type 2 diabetes mellitus with stage 3 chronic kidney disease, with long-term current use of insulin, unspecified whether stage 3a or 3b CKD (CMS/HCC) ECG 12-LEAD Routine 06/30/2025 3:28 PM EDT Chest pain, unspecified type VITAMIN A Routine 06/24/2025 4:00 PM EDT VITAMIN E (TOCOPHEROL) Routine 4:00 PM EDT ALKALINE PHOSPHATASE, ISOENZYMES Routine 06/24/2025 4:00 PM EDT VITAMIN K1 Routine 06/24/2025 4:00 PM EDT VITAMIN D 1,25 DIHYDROXY Routine 06/24/2025 4:00 PM EDT IMMUNOGLOBULINS, QUANTITATIVE, IGA, IGG, IGM Routine 06/24/2025 4:00 PM EDT GGT Routine 06/24/2025 4:00 PM EDT COMPREHENSIVE METABOLIC PANEL, FASTING Routine 06/24/2025 4:00 PM EDT GLUCOSE, WHOLE BLOOD Routine 06/24/2025 1:03 PM EDT TYPE AND SCREEN Routine 06/24/2025 12:58 PM EDT BASIC METABOLIC PANEL Routine 06/24/2025 12:58 PM EDT APTT Routine 06/24/2025 12:58 PM EDT PROTHROMBIN TIME-INR Routine 06/24/2025 12:58 PM EDT CBC WITH AUTO DIFFERENTIAL Routine 06/24/2025 12:58 PM EDT US RENAL COMPLETE Routine 06/11/2025 9:1 1 PM EDT NM HEPATOBILIARY W PHARM Routine 04/27/2025 10:28 AM EDT BI MAMMOGRAM SCREENING TOMOSYNTHESIS BILATERAL Routine 04/06/2025 12:15 PM EDT LIPID PANEL WITH REFLEX TO DIRECT LDL [...] * (ABNORMAL) POCT glycosylated hemoglobin (Hgb A1c) (07/06/2025 1:14 PM EDT) [facility] Hemoglobin A1C 7.3(A) 4.0 - 5.7 % QC Media Lot # [id number] Lot# Expiration Date Blood Capillary blood specimen / Unknown 07/06/2025 1:14 PM EDT Elsa Juarez MD POINT OF CARE TEST ENTER/EDIT OR DERABLES Final Result * POCT glucose manually resulted (07/06/2025 1:11 PM EDT) [facility] Glucose Blood, POC 169 60 - 200 mg/dL QC Media Lot # [id number] Lot# Expiration Date Blood Capillary blood specimen / Unknown 07/06/2025 1:11 PM EDT Elsa Juarez MD POINT OF CARE TEST ENTER/EDIT OR DERABLES Final Result * ECG 12 lead (06/30/2025 3:28 PM EDT) Narrative Elsa Juarez MD - 06/30/2025 3:28 PM EDT Rate 95, sinus, normal CA, QRS, and QTc. Normal axis. No acute ischemic ST-T changes. Elsa Juarez MD ECG ORDERABLES Final Result * (ABNORMAL) Comprehensive Metabolic Panel, Fasting (06/24/2025 4:00 PM EDT) [facility] Sodium 140 135 - 145 mmol/L [facility] Potassium 4.5 3.3 - 5.1 mmol/L [facility] Chloride 106 96 - 108 mmol/L [facility] Carbon Dioxide 26 22 - 29 mmol/L [facility] Anion Gap 13 12 - 20 [facility] Urea Nitrogen (BUN) 9 9 - 16 mg/dL [facility] Creatinine, Serum 0.89 0.5 - 1.4 mg/dL [facility] Estimated Glomerular Filt Rate >60 [facility] Comment:Chronic Kidney Disea se: Estimated GFR < 60 mL/min/1.14s9Rucvsc Kidney Disease: Estimated GFR < 15 mL/min/1.73m2 Glucose Fasting 107(H) 60 - 99 mg/dL [facility] Comment:A fasting glucose fr om 100-125 mg/dl is considered impaired(pre-diabetes). Calcium 9.4 8.4 - 10.2 mg/dL [facility] Bilirubin, Total 0.9 0.0 - 1.0 mg/dL [facility] Aspartate Amino Transferase 31 5 - 31 U/L [facility] Alanine Aminotransferase 55(H) 0 - 31 U/L [facility] Total Protein 7.2 6.5 - 8.0 g/dL [facility] Albumin Level 4.1 3.5 - 5.0 g/dL [facility] Alkaline Phosphatase 163(H) 39 - 117 U/L [facility] 06/24/2025 4:00 PM EDT 06/24/2025 4:00 PM EDT us Generic External Data Provider LAB BLOOD ORDERAB LES Final Result [facility] [address] [place] [phone] * Vitamin K1 (06/24/2025 4:00 PM EDT) Vitamin K1 139 130 - 1500 pg/mL [facility] Comment:This test was develo ped and its analytical performancecharacteristics have been determined by [employer] [place], [place]. It hasnot been cleared or approved by the U.S. Food and DrugAdministration. This assay has been validated pursuantto the CLIA regulations and is used for clinicalpurposes.THIS TEST WAS PERFORMED AT:[id number] [place] [address]ZCQWVXQGLENNY PARTIDA MD,PHD 06/24/2025 4:00 PM EDT 06/24/2025 4:00 PM EDT us Generic External Data Provider LAB BLOOD ORDERAB LES Final Result Performing Organization Address [facility] Co de Phone Number [facility] [address] [place] [phone] * (ABNORMAL) Alkaline phosphatase, isoenzymes (06/24/2025 4:00 PM EDT) Alkaline Phosphatase 155(A) 37 - 153 U/L [facility] Intestinal Isoenzymes 9 1 - 24 % [facility] Bone Isoenzymes 32 28 - 66 % [facility] Liver Isoenzymes 60 25 - 69 % [facility] Placental Isoenzymes 0 <=0 % [facility] Macrohepatic Isoenzymes 0 <=0 % [facility] Comment:THIS TEST WAS PERFOR MED AT:[employer]/[facility] [place] [address]INHJRCVGLENNY PARTIDA MD,PHD Interpretation [facility] 06/24/2025 4:00 PM EDT 06/24/2025 4:00 PM EDT Generic External Data Provider LAB BLOOD ORDERAB LES Final Result Performing Organization Address [facility] Co de Phone Number [facility] [address] [place] [phone] * (ABNORMAL) Vitamin A (06/24/2025 4:00 PM EDT) Vitamin A (Retinol) 28(A) 38 - 98 mcg/dL [facility] Comment:Vitamin supplementat ion within 24 hours prior toblood draw may affect the accuracy of the results.This test was developed and its analytical performancecharacteristics have been determined by [employer] [place]. It hasnot been cleared or approved by the U.S. Food and DrugAdministration. This assay has been validated pursuantto the CLIA regulations and is used for clinicalpurposes.THIS TEST WAS PERFORMED AT:[employer] [id number] [place] [address]TOQAGFPGLENNY PARTIDA MD,PHD 06/24/2025 4:00 PM EDT 06/24/2025 4:00 PM EDT Generic External Data Provider LAB BLOOD ORDERAB LES Final Result Performing Organization Address [facility] Co de Phone Number [facility] [address] [place] [address] [phone] * Vitamin D 1,25 dihydroxy (06/24/2025 4:00 PM EDT) Vit D (1,25-Dihydroxy) Total 60 18 - 72 pg/mL [facility] VITAMIN D (1,25 OH) D3 <8 pg/mL [facility] Vitamin D (1,25 OH) D2 60 pg/mL [facility] Comment:Vitamin D3, 1,25(OH) 2 indicates both endogenousproduction and supplementation. Vitamin D2, 1,25(OH)2is an indicator of exogenous sources, such as diet orsupplementation. Interpretation and therapy are basedon measurement of Vitamin D,1,25(OH)2, Total.This test was developed and its analyticalperformance characteristics have been determinedby [employer] [place], [place].It has not been cleared or approved by the FDA. Thisassay has been validated pursuant to the CLIAregulations and is used for clinical purposes.THIS TEST WAS PERFORMED AT:[employer] [id number] [place] [address]IODGVCGGLENNY PARTIDA MD,PHD 06/24/2025 4:00 PM EDT 06/24/2025 4:00 PM EDT us Generic External Data Provider LAB BLOOD ORDERAB LES Final Result Performing Organization Address [facility]/ZIP Co de Phone Number [facility] [address] [place] [phone] * Immunoglobulins, Quantitative, IgA, IgG, IgM (06/24/2025 4:00 PM EDT) IMMUNOGLOBULIN G 998 600 - 1640 mg/dL [facility] IMMUNOGLOBULIN A 258 47 - 310 mg/dL [facility] Immunoglobulin M 162 50 - 300 mg/dL [facility] Comment:THIS TEST WAS PERFOR MED AT:[employer] [address] [address]PGKHJNANDO SNIDER MD 06/24/2025 4:00 PM EDT 06/24/2025 4:00 PM EDT us Generic External Data Provider LAB BLOOD ORDERAB LES Final Result [facility] [address] [place] [phone] * Vitamin E (Tocopherol) (06/24/2025 4:00 PM EDT) Vitamin E, Alpha-Tocopherol 18.8 5.7 - 19.9 mg/L [facility] Comment:Levels of alpha-toco pherol <5 mg/L are consistentwith Vitamin E deficiency in adults. Vitamin E, Rnec-Faxmo-Ykqpbkpaxe 1.5 <=4.3 mg/L [facility] Comment:Vitamin supplementat ion within 24 hours prior toblood draw may affect the accuracy of the results.This test was developed and its analytical performancecharacteristics have been determined by [employer] [place], [place]. It hasnot been cleared or approved by the U.S. Food and DrugAdministration. This assay has been validated pursuantto the CLIA regulations and is used for clinicalpurposes.THIS TEST WAS PERFORMED AT:[employer]/[facility] [place] [address]ZJJWSSWGLENNY PARTIDA MD,PHD 06/24/2025 4:00 PM EDT 06/24/2025 4:00 PM EDT Generic External Data Provider LAB BLOOD ORDERAB LES Final Result Performing Organization Address [facility] Co de Phone Number [facility] [address] [place] [phone] * (ABNORMAL) Gamma Glutamyl Transferase (GGT) (06/24/2025 4:00 PM EDT) Pathologist [facility] Gamma Glutamyl Transpeptidase 324(H) 7 - 33 U/L [facility] 06/24/2025 4:00 PM EDT 06/24/2025 4:00 PM EDT Generic External Data Provider LAB BLOOD ORDERAB LES Final Result Performing Organization Address [facility] Co de Phone Number [facility] [address] [place] [address] [phone] * (ABNORMAL) Glucose, Whole Blood (06/24/2025 1:03 PM EDT) [facility] Glucose, Whole Blood 127(H) 60 - 115 mg/dL [facility] Comment:METER #: [id number] 06/24/2025 1:03 PM EDT 06/24/2025 1:06 PM EDT Generic External Data Provider LAB BLOOD ORDERAB LES Final Result Performing Organization Address [facility] Co de Phone Number [facility] [address] [place] [phone] * (ABNORMAL) CBC auto differential (06/24/2025 12:58 PM EDT) [facility] White Blood Count 7.2 4.8 - 10.8 X10*3/uL [facility] Red Blood Count 5.23 4.20 - 5.50 X10*6/uL [facility] Hemoglobin 12.7 12.0 - 16.0 g/dl [facility] Hematocrit 39.6 37.0 - 47.0 % [facility] Mean Corpuscular Volume 75.7(L) 80.0 - 98.0 fL [facility] Mean Corpuscular Hemoglobin 24.3(L) 27.0 - 33.0 pg [facility] Mean Corpuscular HGB Conc 32.1 31.0 - 35.0 g/dl [facility] Red Cell Distribution Width 16.5(H) 11.0 - 16.0 % [facility] Platelet Count 224 160 - 400 X10*3/uL [facility] Mean Platelet Volume 9.7 9.4 - 12.3 fL [facility] Neutrophils Percent Auto 65.8 45 - 73 % [facility] Imm Gran Pct Auto 0.4 0.0 - 0.4 % [facility] Lymphocytes Percent Auto 23.0 20 - 40 % [facility] Monocytes Percent Auto 5.3 2 - 11 % [facility] Eosinophils Percent Auto 5.4(H) 0 - 4 % [facility] Basophils Percent Auto 0.1 0 - 2 % [facility] NRBC Pct Auto 0.0 0.0 - 0.2 /100WBC [facility] Neutrophils Absolute Auto 4.8 2.0 - 8.3 x10*3/uL [facility] Imm Gran Abs Auto 0.03 0.00 - 0.03 X10*3/uL [facility] Lymphocytes Absolute Auto 1.7 1.2 - 4.9 X10*3/uL [facility] Monocytes Absolute Auto 0.4 0.1 - 1.2 X10*3/uL [facility] Eosinophils Absolute Auto 0.4 0.0 - 0.4 X10*3/uL [facility] Basophils Absolute Auto 0.0 0.0 - 0.2 X10*3/uL [facility] NRBC Abs Auto 0.000 0.0 - 0.012 X10*3/uL [facility] 06/24/2025 12:5 8 PM EDT 06/24/2025 1:04 PM EDT Generic External Data Provider LAB BLOOD ORDERAB LES Final Result Performing Organization Address [facility] Co de Phone Number [facility] [address] [place] [phone] * Partial Thromboplastin Time, Activated (APTT) (06/24/2025 12:58 PM EDT) Partial Thromboplastin Time 31.0 26.7 - 34.1 SEC [facility] 06/24/2025 12:5 8 PM EDT 06/24/2025 1:04 PM EDT Generic External Data Provider LAB BLOOD ORDERAB LES Final Result Performing Organization Address [facility] Phone Number [facility] [address] [place] [address] [phone] * (ABNORMAL) Prothrombin Time-INR (06/24/2025 12:58 PM EDT) Prothrombin Time 10.5(L) 10.9 - 12.4 SEC [facility] INTERNATIONAL NORM RATIO 0.9 0.9 - 1.1 [facility] Comment:INTERNATIONAL NORMAL IZED RATIO (INR) REFERENCE RANGES Reference RangeFor patients not on anticoagulant therapy: 0.9 - 1.1INR ranges for oral anticoagulanttherapy:For prevention and treatment of venous thrombosis and pulmonary embolism: 2.0 - 3.0For acute myocardial infarction with aspirin therapy: 2.0 - 3.0For acute myocardial infarction without aspirin therapy: 3.0 - 4.0For patients with mechanical prosthetic heart valves: 2.5 - 3.5 06/24/2025 12:5 8 PM EDT 06/24/2025 1:04 PM EDT Generic External Data Provider LAB BLOOD ORDERAB LES Final Result Performing Organization Address [facility] de Phone Number [facility] [address] [place] [address] [phone] * Type and screen (06/24/2025 12:58 PM EDT) Blood Type ON [facility] Antibody Screen NEGATIVE [facility] 06/24/2025 12:5 8 PM EDT 06/24/2025 1:07 PM EDT us Generic External Data Provider LAB BLOOD BANK TE ST ORDERABLES Final Result [facility] [address] [place] [phone] * (ABNORMAL) Basic Metabolic Panel (06/24/2025 12:58 PM EDT) Sodium 139 135 - 145 mmol/L [facility] Potassium 4.3 3.3 - 5.1 mmol/L [facility] Chloride 108 96 - 108 mmol/L [facility] Carbon Dioxide 24 22 - 29 mmol/L [facility] Anion Gap 11(L) 12 - 20 [facility] Urea Nitrogen (BUN) 9 9 - 16 mg/dL [facility] Creatinine, Serum 0.80 0.5 - 1.4 mg/dL [facility] Creatinine Clr Calc Pharmacy 66.6 [facility] Comment:Provided height and weight: 157.48 cm,62.596 kg.eGFR (calculated from the MDRD study equation) and eCrCl(calculated from the Cockcroft-Gault equation) are based ondifferent parameters and may not yield comparable results.If eCrCl result is absurd, please check patient'sheight/weight. Estimated Glomerular Filt Rate >60 [facility] Comment:Chronic Kidney Disea se: Estimated GFR < 60 mL/min/1.58x7Qjqght Kidney Disease: Estimated GFR < 15 mL/min/1.73m2 Glucose 127(H) 60 - 115 mg/dL [facility] Calcium 9.0 8.4 - 10.2 mg/dL [facility] 06/24/2025 12:5 8 PM EDT 06/24/2025 1:04 PM EDT us Generic External Data Provider LAB BLOOD ORDERAB LES Final Result [facility] [address] [place] [address] [phone] * US Renal Complete (06/11/2025 9:11 PM EDT) Anatomical Region Laterality Modality Kidney Ultrasound 06/11/2025 9:11 PM EDT Narrative 06/11/2025 9:12 PM EDT [place] [address] Ultrasound Report Signed Patient: Lakshmi Avalos MR#: [id number] : 1965 Acct:[id number] Age/Sex: 59 / F ADM Date: 06/11/25 Loc: HO.US Attending Dr: Ordering Physician: Alexey Jack MD Date of Service: 06/11/25 Procedure(s): US renal BI Accession Number(s): [id number] cc: Alexey Jack MD; Elsa Juarez MD CLINICAL HISTORY: N20.0 - Calculus of kidney US renal Comparison: 11/16/2023 Findings: Right kidney 11.3 cm length. No significant focal abnormality. Left kidney 7.8 cm length. Increased echogenicity consistent with chronic disease. No significant focal abnormality is identified. Incidental 1.4 cm upper pole cyst. No bilateral hydronephrosis. Impression: Small echogenic left kidney consistent with chronic disease No other significant abnormality This document has been electronically signed by: Adolfo Flores MD on 06/11/2025 21:11:22 Dictated By: Adolfo Flores MD Signed By: <Electronically signed by Adolfo Flores MD in OV> 06/11/252111 DD/ 10 TD/TT: 06/11/252110 Press Set Up Person: Procedure Note Donotuseinterpreter, Image - 06/11/[address] [address] Ultrasound Report Signed Patient: Lakshmi Avalos MR#: [id number] : 1965Acct:[id number] Age/Sex: 59 / FADM Date: 06/11/25 Loc: HO.US Attending Dr: Ordering Physician: Alexey Jack MD Date of Service: 06/11/25 Procedure(s): US renal BI Accession Number(s): [id number] cc: Alexey Jack MD; Elsa Juarez MD CLINICAL HISTORY: N20.0 - Calculus of kidney US renal Comparison: 11/16/2023 Findings: Right kidney 11.3 cm length. No significant focal abnormality. Left kidney 7.8 cm length. Increased echogenicity consistent with chronic disease. No significant focal abnormality is identified. Incidental 1.4 cm upper pole cyst. No bilateral hydronephrosis. Impression: Small echogenic left kidney consistent with chronic disease No other significant abnormality This document has been electronically signed by: Adolfo Flores MD on 06/11/2025 21:11:22 Dictated By: Adolfo Flores MD Signed By: <Electronically signed by Adolfo Flores MD in OV> 06/11/252111 DD/ 10 TD/TT: 06/11/252110 Press Set Up Person: us [facility] External Provider IMG US PROCEDURES Edited Result - Final * NM Hepatobiliary w Pharm (04/27/2025 10:28 AM EDT) Anatomical Region Laterality Modality Body Nuclear Medicine 04/27/2025 10:2 8 AM EDT Narrative 04/27/2025 1:39 PM EDT [place] [address] Nuclear Medicine Report Signed Patient: Lakshmi Avalos MR#: [id number] : 1965 Acct:[id number] Age/Sex: 59 / F ADM Date: 04/27/25 Loc: HO.NUCMED Attending Dr: Tiana Betancourt CNP Ordering Physician: Tiana Betancourt CNP Date of Service: 04/27/25 Procedure(s): NM hepatobiliary w pharm Accession Number(s): [id number] cc: Elsa Juarez MD; Tiana Betancourt CNP EXAMINATION: NM HEPATOBILIARY WITH PHARM HISTORY: R74.8 - Abnormal levels of other serum enzymes. TECHNIQUE: An hepatobiliary scan was performed following the intravenous administration of 5 mCi technetium 99m-mebrofenin. Sequential images were obtained over 90 minutes. Subsequently, the patient received 1.3 microgram of IV CCK over 30 minutes and additional imaging was performed. COMPARISON: Prior abdominal CT and ultrasound examinations are not available for comparison at this time. FINDINGS: There is normal uptake and excretion of the radiopharmaceutical by the liver. Gallbladder activity is noted at 30 minutes. Common bile duct activity is seen at 44 minutes. Small bowel activity is noted at 40 minutes. After the administration of intravenous CCK, the estimated gallbladder ejection fraction is 79%, which is within normal limits (normal 35-80%). NM/NM hepatobiliary w pharm IMPRESSION: Normal hepatobiliary scan with normal gallbladder ejection fraction. Electronically signed by: Medhat Felix MD 04/27/2025 01:36 PM EDT Dictated By: Medhat Felix MD Signed By: <Electronically signed by Medhat Felix MD in OV> 04/27/25 1336 DD/ 1028 TD/TT: 04/27/25 1315 Press Set Up Person: Procedure Note Donotuseinterpreter, Image - 04/27/[address] [address] Nuclear Medicine Report Signed Patient: Lakshmi Avalos MR#: [id number] : 1965Acct:[id number] Age/Sex: 59 / FADM Date: 04/27/25 Loc: DAVID Attending Dr: Tiana Betancourt CNP Ordering Physician: Tiana Betancourt CNP Date of Service: 04/27/25 Procedure(s): NM hepatobiliary w pharm Accession Number(s): [id number] cc: Elsa Juarez MD; Tiana Betancourt MACHINE TOOL OPERATOR EXAMINATION: NM HEPATOBILIARY WITH PHARM HISTORY: R74.8 - Abnormal levels of other serum enzymes. TECHNIQUE: An hepatobiliary scan was performed following the intravenous administration of 5 mCi technetium 99m-mebrofenin. Sequential images were obtained over 90 minutes. Subsequently, the patient received 1.3 microgram of IV CCK over 30 minutes and additional imaging was performed. COMPARISON: Prior abdominal CT and ultrasound examinations are not available for comparison at this time. FINDINGS: There is normal uptake and excretion of the radiopharmaceutical by the liver. Gallbladder activity is noted at 30 minutes. Common bile duct activity is seen at 44 minutes. Small bowel activity is noted at 40 minutes. After the administration of intravenous CCK, the estimated gallbladder ejection fraction is 79%, which is within normal limits (normal 35-80%). NM/NM hepatobiliary w pharm IMPRESSION: Normal hepatobiliary scan with normal gallbladder ejection fraction. Electronically signed by: Medhat Felix MD 04/27/2025 01:36 PM EDT Dictated By: Medhat Felix MD Signed By: <Electronically signed by Medhat Felix MD in OV> 04/27/25 1336 DD/ 1028 TD/TT: 04/27/25 1315 Press Set Up Person: [facility] External Provider IMG NM PROCEDURES Edited Result - Final * BI Mammogram Screening Tomosynthesis Bilateral (04/06/2025 12:15 PM EDT) Anatomical Region Laterality Modality Breast Bilateral Mammography 04/06/2025 12:1 5 PM EDT Narrative 04/12/2025 5:29 PM EDT [facility] [address] [place] [address] Mammography Report Signed Patient: Lakshmi Avalos MR#: [id number] : 1965 Acct:[id number] Age/Sex: 59 / F ADM Date: 04/06/25 Loc: JOAQUINO Attending Dr: Elsa Juarez MD Ordering Physician: Elsa Juarez MD Results: 1Negative Date of Service: 04/06/25 Follow Up: 1 Year From Orig ina Mammogram Procedure(s): MM tomosynthesis screening BI Accession Number(s): [id number] cc: Elsa Juarez MD EXAMINATION: MM SCREENING [...] 04/12/25 1727 DD/ 1215 TD/TT: 04/06/25 1231 Press Set Up Person: Procedure Note Donotuseinterpreter, Image - 04/13/2025 [facility] [address] [place] [address] Dr. [place], [place] [address] Mammography Report Signed Patient: Lakshmi Avalos MR#: [id number] : 1965Acct:[id number] Age/Sex: 59 / FADM Date: 04/06/25 Loc: HO.MAMMO Attending Dr: Elsa Juarez MD Ordering Physician: Elsa Juarez MDResults: 1Negative Date of Service: 04/06/25Follow Up: 1 Year From Orig ina Mammogram Procedure(s): MM tomosynthesis screening BI Accession Number(s): [id number] cc: Elsa Juarez MD EXAMINATION: MM SCREENING [...] 04/12/25 1727 DD/ 1215 TD/TT: 04/06/25 1231 Press Set Up Person: Elsa Juarez MD [facility] BI PROCEDURES Edited Result - Final * (ABNORMAL) Lipid Panel with Reflex to Direct LDL (12/23/2024 2:54 PM EST) Triglycerides 263(H) <150 mg/dL [facility] Comment:Desirable Triglyceri de: less than 150 mg/dLBorderline High Triglyceride 150-199 mg/dLHigh Triglyceride: 200-499 mg/dLVery High Triglyceride: greater than or equal to 5OO mg/dL Cholesterol 174 <200 mg/dL [facility] Comment:Desirable Cholestero l: less than 200 mg/dLBorderline High Cholesterol: 200-239 mg/dLHigh Cholesterol: greater than 239 mg/dL LDL Cholesterol Calculated 79 <100 mg/dL [facility] Comment:Desirable LDL: less than 100 mg/dLNear Optimal/Above Optimal LDL: 110- 129 mg/dLBorderline High LDL: 130-159 mg/dLHigh LDL: 160-189 mg/dLVery High LDL: greater than or equal to 190 mg/dL HDL Cholesterol 43 >40 mg/dL [facility] Comment:Desirable HDL: great er than 40 mg/dL Note: This HDL assay may give artificially low results in patients with liver disease. Blood 12/23/2024 2:54 PM EST 12/26/2024 9:18 AM EST Elsa Juarez MD LAB BLOOD ORDERABLES Final Resul t Performing Organization Address City/[facility]/ZIP Co de Phone Number [facility] [address] [place] [phone] * HEPATITIS C AB W/REFL TO HCV RNA, QN, PCR (03/30/2021 9:31 AM EDT) HEPATITIS C ANTIBODY NON-REACT ANA NON-REACT ANA [facility] INDEX 0.01 <1.00 [facility] Comment: HCV antibody was non-reactive. There is no laboratory evidence of HCV infection. In most cases, no further action is required. However, if recent HCV exposure is suspected, a test for HCV RNA (test code 35389) is suggested. For additional information please refer to [email or web address]/ZCT49w5 (This link is being provided for informational/ educational purposes only.) 03/30/2021 9:31 AM EDT Elsa Juarez MD HISTORICAL/NON ORDERABLE LABS Fi nal Result Performing Organization Address City/[facility]/ZIP Co de Phone Number [facility] [address] [place], [place] [address] * HIV 1/2 ANTIGEN/ANTIBODY,FOURTH GENERATION W/RFL (03/30/2021 9:31 AM EDT) HIV-1/2 ANTIGEN AND ANTIBODIES, 4TH GENERATION W/ REFLEX NON-REACT ANA NON-REACT ANA [facility] Comment: HIV-1 antigen and HIV-1/HIV-2 antibodies were not detected. There is no laboratory evidence of HIV infection. PLEASE NOTE: This information has been disclosed to you from records whose confidentiality may be protected by state law. If your state requires such protection, then the state law prohibits you from making any further disclosure of the information without the specific written consent of the person to whom it pertains, or as otherwise permitted by law. A general authorization for the release of medical or other information is NOT sufficient for this purpose. For additional information please refer to http://education.PanelClaw/faq/HIU894 (This link is being provided for informational/ educational purposes only.) The performance of this assay has not been clinically validated in patients less than 2 years old. 03/30/2021 9:31 AM EDT us Elsa Juarez MD LAB BLOOD ORDERABLES Final Resul t [facility] [address] from Last 3 Months or Most Recently Relevant to Health Maintenance Insurance [facility] C3 Care Teams Registered Nurse Fetal Relationship Specialty Start Date End Date Elsa Juarez MD [address] [place] [address] PCP - General Family Medicine 04/04/19 Kath White Mash Processing OperatorAudio/Visual Manager 03/06/24
--- OUTSIDE RECORDS SUMMARY | 2025-07-22 13:50 | XMS_ITS | Encounter Summary ---
Author Organization [employer] Address [address] 7t [place] [address] Care Team Providers Care Chief Operator Name Role Phone Elsa Espitia MD Primary Care Provider [phone] Encounter Details Date Type Department Care Team ([facility] st Contact Info) Description 07/10/2025 Orders Only [facility] MEDICINE 230 [place] [address] Elsa Espitia MD [address] [place], [place] [phone] Social History Tobacco Use Types Packs/Day Years [...] PM EDT Clinical Support [facility] MED & PEDS 505 [place] [address] Cha Gonzalez RN 505 [place] [address] documented as of this encounter Visit Diagnoses Not on filedocumented in this encounter Additional Health Concerns Assessment Noted Time PHQ-9 Depression Total Score: 0 09/18/20 10:38 AM EDT documented as of this encounter Care Teams Chief Operator Relationship Specialty Start Date End Date Elsa Espitia MD 230 [place] [address] PCP - General Family Medicine 04/04/19 Kath White Quilter FixerBuyer Liaison 03/06/24 documented as of this encounter
--- OUTSIDE RECORDS SUMMARY | 2025-07-22 13:50 | XMS_ITS | Encounter Summary ---
Author Organization [employer] Address [address] 7t [place] [address] Care Team Providers Care Viscosity Worker Name Role Phone Elsa Espitia MD Primary Care Provider [phone] Reason for Visit * Reason Onset Date Comments Referral 06/15/2023 Encounter Details Date Type Department Care Team ([facility] st Contact Info) Description 06/15/2023 Telephone [facility] MEDICINE 230 [place], [place] [phone] Elsa Espitia MD 230 [place], [place] [phone] Referral Social History Tobacco Use Types Packs/Day [...] Description 08/06/2025 2:30 PM EDT Clinical Support [facility] MED & PEDS 505 [place] [address] Cha Gonzalez, RN 505 [place] [address] documented as of this encounter Visit Diagnoses Not on filedocumented in this encounter Additional Health Concerns Assessment Noted Time PHQ-9 Depression Total Score: 0 06/01/20 23 10:46 AM EDT documented as of this encounter Care Teams Viscosity Worker Relationship Specialty Start Date End Date Elsa Espitia MD [address] [place] [address] PCP - General Family Medicine 04/04/19 Kath White Manuscript ReaderStrategic Debriefing Specialist 03/06/24 documented as of this encounter
--- OUTSIDE RECORDS SUMMARY | 2025-07-22 13:50 | XMS_ITS | Encounter Summary ---
Author Organization [employer] Address [address] 7t [place] [address] Care Team Providers Care Spinner Continuous Name Role Phone Elsa Espitia MD Primary Care Provider [phone] Reason for Referral * Consultation (Routine) - Closed Specialty Diagnoses / Procedures Referred By Contac t Referred To Contact Behavioral Health Diagnoses Major depressive disorder, remission status unspecified, unspecified whether recurrent Anxiety Elsa Espitia MD [address] [place] [address] Phone: tel: fax: Referral ID Status Reason Start Date Expiration Date V isits Requested Visits Authorized [id number] Closed Specialty Services Required 02/12/2025 02/12/2026 1 1 Encounter Details Date Type Department Care Team (Late st Contact Info) Description 02/12/2025 Orders Only [facility] MEDICINE [address] [place] [phone] Elsa Espitia MD [address] [place] [address] [phone] Major depressive disorder, remission status unspecified, unspecified [...] Description 08/06/2025 2:30 PM EDT Clinical Support [facility] MED & PEDS 505 [place] [address] Cha Gonzalez, SONNY 505 [place] [address] Scheduled Referrals Name Type Priority Associated Diagnoses [...] documented as of this encounter Care Teams Spinner Continuous Relationship Specialty Start Date End Date Elsa Espitia MD [address] [place] [address] PCP - General Family Medicine 04/04/19 Kath White Director Of PsychologyOss Architect 03/06/24 documented as of this encounter
--- OUTSIDE RECORDS SUMMARY | 2025-07-22 13:50 | XMS_ITS | Encounter Summary ---
Author Organization [employer] Address [address] 7t [place] [address] Care Team Providers Care Auto Clocks Repairer Name Role Phone Elsa Espitia MD Primary Care Provider [phone] Reason for Visit * Reason Comments Med Refill Encounter Details Date Type Department Care Team ([facility] st Contact Info) Description 10/29/2024 Refill [facility] MEDICINE 230 [place], [place] [phone] Elsa Espitia MD 230 [place], [place] [phone] Chronic low back pain, unspecified back pain [...] Description 08/06/2025 2:30 PM EDT Clinical Support [facility] MED & PEDS 505 [place] [address] Cha oGnzalez, SONNY 505 [place] [address] documented as of this encounter Visit Diagnoses Diagnosis Chronic low back pain, unspecified back pain laterality, unspecified whether sciatica present documented in this encounter Additional Health Concerns Assessment Noted Time PHQ-9 Depression Total Score: 0 09/18/20 10:38 AM EDT documented as of this encounter Care Teams Auto Clocks Repairer Relationship Specialty Start Date End Date Elsa Espitia MD 230 [place] [address] PCP - General Family Medicine 04/04/19 Kath White Herb CounselorStave Grader 03/06/24 documented as of this encounter
--- OUTSIDE RECORDS SUMMARY | 2025-07-22 13:50 | XMS_ITS | Encounter Summary ---
Author Organization [employer] Address [address] [facility] [address]t [place] [address] Care Team Providers Care Product Craftsman Name Role Phone Elsa Espitia MD Primary Care Provider [phone] Reason for Visit * Reason Onset Date Comments Medication Question 07/09/2025 Encounter Details Date Type Department Care Team ([facility] st Contact Info) Description 07/09/2025 Telephone [facility] MEDICINE 230 [place] [address] Elsa Espitia MD 230 [place], [place] [phone] Medication Question Social History Tobacco Use Types [...] Telephone Encounter - Elsa Espitia MD - 07/10/2025 9:55 AM EDT Sent doxycycline. * Telephone Encounter - Lisa Nichols RN - 07/09/2025 3:54 PM EDT Note from 07/06/25 visit unsigned but does not mention antibiotics. Telephone call to pt via [facility] supervisor core shop Curt #[phone]. Pt reports that she discussed antibiotics with PCP Dr Espitia during 07/06/25 visit for pimple on her back. Advised her will send message to PCP to clarify, pt verbalized understanding. * Telephone Encounter - Chasidy Caputo - 07/09/2025 2:00 PM EDT TC from pt requesting a call back regarding 07/06 visit. Pt stated PCP was going to send antibiotics, but prescription was never sent. Contact pt at [phone] documented in this encounter Plan of Treatment Upcoming Encounters Date Type Department Care Team (Late st Contact Info) Description 08/06/2025 2:30 PM EDT Clinical Support [facility] MED & PEDS [address] [place] [address] Cha Gonzalez, RN 505 [place] [address] documented as of this encounter Visit Diagnoses Not on filedocumented in this encounter Additional Health Concerns Assessment Noted Time PHQ-9 Depression Total Score: 0 09/18/20 10:38 AM EDT documented as of this encounter Care Teams Product Craftsman Relationship Specialty Start Date End Date Elsa Espitia MD [address] [place] [address] PCP - General Family Medicine 04/04/19 Kath White Body Shop MechanicCandy Bar Attendant 03/06/24 documented as of this encounter
== END 2025-07-22 14:38 | disposition home or self-care (01) ==
LOC: HO.HGI 13:11
PROVIDERS: PCP Family Medicine; Visit Provider Nurse Practitioner Family
DX: K74.3 Primary biliary cirrhosis (principal); K59.01 Slow transit constipation; M85.839 Other specified disorders of bone density and structure, unspecified forearm; L02.91 Cutaneous abscess, unspecified
CPT/HCPCS: 99215

== ENCOUNTER → 2025-07-22 13:10 | Outpatient (BNVA) | payer MEDICAID, SELFPAY | PROVIDERS: PCP Family Medicine; Visit Provider Nurse Practitioner Family | DX: K74.3 Primary biliary cirrhosis (principal); K21.9 Gastro-esophageal reflux disease without esophagitis; K59.01 Slow transit constipation; M85.839 Other specified disorders of bone density and structure, unspecified forearm; L02.91 Cutaneous abscess, unspecified | CPT/HCPCS: 99212 ==

== ENCOUNTER 2025-10-05 13:49 | Outpatient (AMB) | payer MEDICAID, SELFPAY ==
[2025-10-05 14:22] VITALS: BP 110/72; PULSE 83; BMI 26.4
--- NOTE | 2025-10-05 14:22 | A.OFFVIS_ITS ---
Vital Signs 10/05/25 14:22 Height 5 ft 2 in Weight 144 lb 2.917 oz BMI 26.4 BP 110/72 Blood Pressure Location Rt brachial Position Sitting Pulse 83 Pulse Source Monitor Intake Visit Reasons: r/s 09/11/25 followup/dr. xiong/zohreh km pt Leadership Development Manager Required: Yes Leadership Development Manager Language: Termite Control Representative Name: kb light [id number] Allergies aspirin (Aspirin) Allergy (Intermediate, Verified 10/05/25 14:25) EYES SWELLING Penicillins Allergy (Intermediate, Verified 10/05/25 14:25) RASH citalopram Allergy (Unknown, Verified 10/05/25 14:25) chest pain Diltiazem HCl Allergy (Unknown, Uncoded 10/05/25 14:25) Unknown Medication List - Last Reconciled 10/05/25 by CHRISTOPHER MagañaC albuterol sulfate 5 mg inhalation Q4H PRN albuterol sulfate 90 mcg/actuation 2 puffs inhalation Q4-6H PRN amitriptyline 50 mg PO DAILY atorvastatin 20 mg PO BEDTIME bisacodyl 5 mg PO ONCE 1 day calcium carbonate 500 mg PO cetirizine (Zyrtec) 10 mg PO DAILY clonidine HCl 1 tab PO BEDTIME cyanocobalamin (vitamin B-12) 1 tab PO DAILY dapagliflozin propanediol (Farxiga) 1 tab PO DAILY diphenhydramine HCl (Dacia-Dryl) 25 - 50 mg PO BEDTIME PRN dulaglutide (Trulicity) per instructions ergocalciferol (vitamin D2) 1 cap PO OWENS famotidine 20 mg PO DAILY PRN ferrous sulfate (FeroSul) 1 tab PO BID fluticasone furoate-vilanterol 200-25 mcg/dose (Breo Ellipta) 1 inh inhalation DAILY 30 days fluticasone propionate 50 mcg/actuation (Flonase Allergy Relief) 2 sprays intranasal DAILY gabapentin 0 mg PO hydroxyzine pamoate mg PO BEDTIME insulin glargine 20 units (0.2 mL) subcut QPM lancets (TRUEplus Lancets) As directed metformin ER 500 mg PO CONT. PER PROTOCOL methylcellulose (laxative) (Citrucel) 500 mg PO DAILY metoclopramide HCl 5 mg PO QID metoprolol tartrate 1 tab PO BID omeprazole 40 mg (2 x 20 mg) PO DAILY 30 days pen needle, diabetic (Pen Needle) As directed polyethylene glycol 3350 (Miralax) 17 grams PO DAILY 30 days polyethylene glycol 3350 (Miralax) 238 grams PO ONCE prednisone 40 mg (2 x 20 mg) PO DAILY sennosides-docusate sodium 8.6-50 mg (Senexon-S) 2 tabs PO BEDTIME sertraline 100 mg PO DAILY sucralfate 1 g PO BID tramadol 50 mg PO DAILY trazodone 50 mg PO BEDTIME umeclidinium 62.5 mcg/actuation (Incruse Ellipta) 1 inh inhalation DAILY 30 days ursodiol 500 mg PO BEDTIME ursodiol 300 mg PO DAILY HPI HPI r/s 09/11/25 followup/dr. xiong/cp km pt: Details: Lakshmi is a 60-year-old female with past medical history of diabetes, hypertension, hyperlipidemia, prior long QT, asthma who presents for follow-up. Her last prior visit was 07/11/2023. Today she reports she has been getting random stabbing pains in her anterior chest and left side for the last few months. The pain can last up to 2 minutes before resolving. There is no pattern to when it occurs. No associated symptoms. Mostly happens when at rest. Has some shortness of breath with exertion which she relates to her asthma. No chest discomfort clearly brought on by walking or stair climbing. No heart palpitations, lightheadedness, presyncope, syncope, falls. No PND, orthopnea or edema. Tells me her diabetes is controlled sometimes. Compliant with her meds. Tells me she has been having issues with her liver. She is not sure if she would be able to walk on a treadmill for a stress test. [facility] Medical History (Updated 10/05/25 @ 17:14 by CYNTHIA Magaña) Abscess Osteopenia determined by dual energy x-ray photon absorptiometry (DEXA) scan of forearm Primary biliary cholangitis Constipation Former smoker Colon cancer screening Gallbladder polyp Elevated AFP Pleural effusion Bronchopneumonia Diabetes THANH (acute kidney injury) Acute respiratory failure with hypoxia Pneumonia Asthma with acute exacerbation Asthma On beta mariaelena at home Hx of renal calculi Right knee injury Acute anxiety Depression GERD (gastroesophageal reflux disease) HTN (hypertension) Diabetic acidosis, type II Arthritis Surgical History History of hysterectomy Hx of arthroscopy of right knee Hx of cystoscopy Family History Father No problems noted. Mother No problems noted. Maternal Grandmother Cancer Other No family history of coronary artery disease Social History Household Members: None Housing: Apartment Are you a primary hospice patient care secretary to a significant other at home: No Do you presently have visiting nurse or other home services: No Alcohol intake: current Alcohol intake frequency: does not drink Patient Tobacco Use Status: Former Tobacco user Years Smoked: 20 +/- Second Hand Smoke Exposure: No service: No Current occupational status: disabled Current occupation: right hand dominant Review of Systems Const All systems reviewed & are unremarkable except as noted in HPI and below ENT Denies dizziness Card Details: has asthma Reports chest pain, Reports chest pain at rest, Denies chest pain with activity, Denies rapid heart rate, Denies pedal edema, Denies edema, Denies leg edema, Denies lightheadedness, Denies palpitations, Denies dyspnea, Reports dyspnea on exertion and Denies orthopnea Resp Denies cough, Denies dyspnea and Reports dyspnea on exertion GI Denies hematochezia and Denies change in stool character Musc Denies abnormal gait, Denies limited range of motion, Denies muscle cramps, Denies muscle weakness, Denies numbness, Denies radiating pain into limb, Denies stiffness and Denies tingling Neuro Denies abnormal gait, Denies dizziness, Denies numbness and Denies tingling Endo Denies palpitations Physical Exam Vital Signs: Last Vital Signs Pulse 83 10/05/25 14:22 BP 110/72 10/05/25 14:22 BMI result Body Mass Index 26.4 Const General: cooperative, healthy appearing, comfortable and no acute distress Orientation/consciousness: patient oriented x3 Neck Neck: Yes normal visual inspection Resp Effort & Inspection: normal respiratory effort Auscultation: clear to auscultation bilaterally, no crackles, no rales, no rhonchi and no wheezes Cardio Rate: regular rate Rhythm: regular rhythm Heart sounds: S1 normal heart sound present, S2 normal heart sound present, no gallops, no murmurs and no rubs Neuro General: patient oriented x3 Extrem General: Yes normal to inspection and No no pedal edema Psych Appearance: grossly normal Mental Status: mental status grossly normal Speech and movement: Normal speech and movement present Office Procedures EKG Details: Today, read by me, normal sinus rhythm, QTC 434 milliseconds, rate 83 [id number], Complete Assessment & Plan Assessment & Plan (1) Chest discomfort: Code(s): R07.89 - Other chest pain Category: Medical Plan: Atypical sounding chest discomfort. She does have cardiac risk factors of diabetes, hypertension, hyperlipidemia. Will check check exercise nuclear stress test. If not able to exercise then Lexiscan can be used. Will check echocardiogram to assess for structural disease. Continue with risk factor modification. Signs and symptoms of angina reviewed. Cardiology follow-up 2 months, sooner if needed. (2) Dyspnea on exertion: Code(s): R06.09 - Other forms of dyspnea Category: Medical Plan: Shortness of breath with exertion which she relates to asthma. She is not fluid overloaded on exam. Cardiac testing as above. (3) HTN (hypertension): Code(s): I10 - Essential (primary) hypertension Category: Medical Plan: Blood pressure goal less than 130/80. Well controlled at this time. Continue metoprolol. (4) Prolonged QT interval: Code(s): R94.31 - Abnormal electrocardiogram [ECG] [EKG] Category: Medical Plan: History of medication induced prolonged QT interval. EKG today is showing normal QTc. Plan Time spent on chart review, documentation, interview and assessment Orders: Orders CA echo transthoracic complete Today I10 - Essential (primary) hypertension, R06.09 - Other forms of dyspnea, R07.89 - Other chest pain CA stress test Today I10 - Essential (primary) hypertension, R06.09 - Other forms of dyspnea, R07.89 - Other chest pain NM cardiolite stress test Today I10 - Essential (primary) hypertension, R06.09 - Other forms of dyspnea, R07.89 - Other chest pain Coding Level of Care Code Est Pt Level 4 (09868) Complex EM visit Add On G2211 Diagnoses Chest discomfort R07.89 Dyspnea on exertion R06.09 HTN (hypertension) I10 Prolonged QT interval R94.31 CPT Codes EKG - CPT: [id number], Complete ([id number]) Time Spent (min) 28
--- OUTSIDE RECORDS SUMMARY | 2025-10-05 16:03 | XMS_ITS | Encounter Summary ---
Author Organization [facility] [employer] Address [address] 7t [place] [address] Care Team Providers Care Digital Forensic Examiner Name Role Phone Elsa Espitia MD Primary Care Provider [phone] Reason for Visit * Reason Comments Med Refill Encounter Details Date Type Department Care Team ([facility] st Contact Info) Description 10/29/2024 Refill [facility] MEDICINE 230 [place], [place] [phone] Elsa Espitia MD 230 [place], [place] [phone] Chronic low back pain, unspecified back pain [...] Care Team (Late st Contact Info) Description 12/07/2025 1:00 PM EST Office Visit [facility] [address] [place] [address] Pooja Castillo OD [address] [place] [address] documented as of this encounter Visit Diagnoses Diagnosis Chronic low back pain, unspecified back pain laterality, unspecified whether sciatica present documented in this encounter Additional Health Concerns Assessment Noted Time PHQ-9 Depression Total Score: 0 09/18/20 24 10:38 AM EDT documented as of this encounter Care Teams Digital Forensic Examiner Relationship Specialty Start Date End Date Elsa Espitia MD [address] [place] [address] PCP - General Family Medicine 04/04/19 Kath White First Officer And Flight InstructorMetal Painter 03/06/24 documented as of this encounter
--- OUTSIDE RECORDS SUMMARY | 2025-10-05 16:03 | XMS_ITS | Encounter Summary ---
Author Organization [employer] Address [address] [facility] 7t [place] [address] Care Team Providers Care Sheetmetal Patternmaker Name Role Phone Elsa Espitia MD Primary Care Provider [phone] Reason for Referral * Consultation (Routine) - Closed Specialty Diagnoses / Procedures Referred By Contac t Referred To Contact Behavioral Health Diagnoses Major depressive disorder, remission status unspecified, unspecified whether recurrent Anxiety Elsa Espitia MD [address] [place] [address] Phone: tel: fax: Referral ID Status Reason Start Date Expiration Date V isits Requested Visits Authorized [id number] Closed Specialty Services Required 02/12/2025 02/12/2026 1 1 Encounter Details Date Type Department Care Team (Late st Contact Info) Description 02/12/2025 Orders Only [facility] MEDICINE [address] [place] [address] Elsa Espitia MD [address] [place] [address] [phone] Major depressive disorder, remission status unspecified, unspecified [...] Description 12/07/2025 1:00 PM EST Office Visit [facility] [address] [place] [address] Pooja Castillo, ANNAMARIA [address] [place] [address] Scheduled Referrals Name Type Priority Associated Diagnoses [...] documented as of this encounter Care Teams Sheetmetal Patternmaker Relationship Specialty Start Date End Date Elsa Espitia MD [address] [place] [address] PCP - General Family Medicine 04/04/19 Kath White Social Media DesignerMeeting/Event Planner 03/06/24 documented as of this encounter
--- OUTSIDE RECORDS SUMMARY | 2025-10-05 16:03 | XMS_ITS | Encounter Summary ---
Author Organization [employer] Address [address] [place] [address] Care Team Providers Care Rv Parts And Service Director Name Role Phone Elsa Espitia MD Primary Care Provider [phone] Reason for Visit * Reason Onset Date Comments Medication Question 07/22/2024 Encounter Details Date Type Department Care Team ([facility] st Contact Info) Description 07/22/2024 Telephone [facility] MEDICINE 230 [place], [place] [phone] Elsa Espitia MD 230 [place], [place] [phone] Medication Question Social History Tobacco Use Types [...] EDT TC placed to pt with a Manning design checker to inquire which prescription pt needs a refill on. Per pt, the insulin pen needle (Pentips) 32G X 4 mm is needed. Medication queued to PCP for review * Telephone Encounter - Angel Gallo - 07/22/2024 1:44 PM EDT Tc from pt requesting needles for checking blood sugar. If any questions you can contact pt at [phone]. (Guinean Speaker) documented in this encounter Plan of Treatment Upcoming Encounters Date Type Department Care Team (Late st Contact Info) Description 12/07/2025 1:00 PM EST Office Visit [facility] [address] [place] [address] TarkaPooja, OD [address] [place] [address] documented as of this encounter Visit Diagnoses Not on filedocumented in this encounter Additional Health Concerns Assessment Noted Time PHQ-9 Depression Total Score: 0 06/01/20 23 10:46 AM EDT documented as of this encounter Care Teams Rv Parts And Service Director Relationship Specialty Start Date End Date Elsa Espitia MD [address] [place] [address] PCP - General Family Medicine 04/04/19 Kath White Medical Director/Head Team PhysicianPipeline Inspector 03/06/24 documented as of this encounter
--- OUTSIDE RECORDS SUMMARY | 2025-10-05 16:03 | XMS_ITS | Encounter Summary ---
Author Organization [employer] Address [address] 7t [place] [address] Care Team Providers Care Medical Professionals Name Role Phone Elsa Espitia MD Primary Care Provider [phone] Encounter Details Date Type Department Care Team ([facility] st Contact Info) Description 07/22/2024 Orders Only [facility] 230 [place], [place] [phone] Elsa Espitia MD 230 [place], [place] [phone] Social History Tobacco Use Types Packs/Day Years [...] t he electric, gas, oil or water [employer] threatened to shut off services in your [...] Description 12/07/2025 1:00 PM EST Office Visit [facility] [address] [place] [address] Pooja Castillo, OD [address] [place] [address] documented as of this encounter Visit Diagnoses Not on filedocumented in this encounter Additional Health Concerns Assessment Noted Time PHQ-9 Depression Total Score: 0 06/01/20 23 10:46 AM EDT documented as of this encounter Care Teams Medical Professionals Relationship Specialty Start Date End Date Elsa Espitia MD [address] [place] [address] PCP - General Family Medicine 04/04/19 Kath White Reprographics AssociateProduct Manufacturing Professional 03/06/24 documented as of this encounter
--- OUTSIDE RECORDS SUMMARY | 2025-10-05 16:03 | XMS_ITS | Encounter Summary ---
Author Organization [employer] Address [address] [place] [address] Care Team Providers Care Stockroom Helper Name Role Phone Elsa Espitia MD Primary Care Provider [phone] Encounter Details Date Type Department Care Team ([facility] st Contact Info) Description 07/10/2025 Orders Only [facility] MEDICINE [address] [place] [address] Elsa Espitia MD [address] [place], [place] [phone] Social History Tobacco Use Types Packs/Day Years [...] Description 12/07/2025 1:00 PM EST Office Visit [facility] OPTOMETRY [address] [place] [address] Tarka, Pooja, OD [address] [place] [address] documented as of this encounter Visit Diagnoses Not on filedocumented in this encounter Additional Health Concerns Assessment Noted Time PHQ-9 Depression Total Score: 0 09/18/20 10:38 AM EDT documented as of this encounter Care Teams Stockroom Helper Relationship Specialty Start Date End Date Elsa Espitia MD [address] [place] [address] PCP - General Family Medicine 04/04/19 Kath White Adaptive Physical EducatorCoal Tower Operator 03/06/24 documented as of this encounter
--- OUTSIDE RECORDS SUMMARY | 2025-10-05 16:03 | XMS_ITS | Encounter Summary ---
Author Organization [employer] Address [address] [place] [address] Care Team Providers Care Inside Sales Engineer Name Role Phone Elsa Espitia MD Primary Care Provider [phone] Reason for Visit * Reason Onset Date Comments Med Refill 07/22/2024 Encounter Details Date Type Department Care Team ([facility] st Contact Info) Description 07/22/2024 Telephone [facility] MEDICINE [address] [place], [place] [phone] Elsa Espitia MD [address] [place], [place] [phone] Med Refill Social History Tobacco Use Types [...] 50 MG tablet To be sent to: [facility] Pharm[facility] documented in this encounter Plan of Treatment Upcoming Encounters Date Type Department Care Team (Late st Contact Info) Description 12/07/2025 1:00 PM EST Office Visit [facility] OPTOMETRY [address] [place] [address] TarkaPooja, OD [address] [place] [address] documented as of this encounter Visit Diagnoses Not on filedocumented in this encounter Additional Health Concerns Assessment Noted Time PHQ-9 Depression Total Score: 0 06/01/20 23 10:46 AM EDT documented as of this encounter Care Teams Inside Sales Engineer Relationship Specialty Start Date End Date Elsa Espitia MD [address] [place] [address] PCP - General Family Medicine 04/04/19 Kath White Manager PresentationPhysician Relations Representative 03/06/24 documented as of this encounter
--- OUTSIDE RECORDS SUMMARY | 2025-10-05 16:03 | XMS_ITS | Clinical Summary ---
Author Organization [employer] Address [address] [place] [address] Care Team Providers Care Timber Packer Name Role Phone Elsa Espitia MD Primary Care Provider [phone] Allergies Active Allergy Reactions Criticality Noted Date [...] 11 025 Active Trulicity 0.75 MG/0.5ML solution auto-injectorI ndications:Typ e 2 diabetes mellitus with other specified complication, with long-term current use of insulin (HCC) INJECT ONE PEN (=0.75MG) SUBCUTANEOUSLY ONCE A WEEK DIRECTED 2 mL 11 025 Active metFORMIN XR (Glucophage-XR ) 500 MG 24 hr tabletIndicati ons:Type 2 diabetes mellitus with other specified complication, with long-term current use of insulin (HCC) TAKE 1 TABLET BY MOUTH TWICE DAILY IN THE MORNING AND IN THE EVENING WITH MEALS 180 tablet 3 025 Active sertraline (Zoloft) 100 MG tabletIndicati ons:Depression , unspecified depression type TAKE 1 TABLET BY [...] 025 Active Oyster Shell Calcium 500 MG tabletIndicati ons:Other specified personal risk factors, not elsewhere classified TAKE 1 TABLET BY MOUTH TWICE DAILY IN THE MORNING AND IN THE EVENING 180 tablet 2 025 Active Pentips Generic Pen [place] 32G X 4 MM misc USE ONCE DAILY DIRECTED 100 each 3 025 Active cyanocobalamin (Vitamin B-12) 1000 MCG tablet TAKE 1 TABLET BY MOUTH EVERY MORNING 90 tablet 3 025 Active insulin pen needle (Pentips) 32G x 4 mm misc USE DAILY WITH INSULIN 100 each 3 Active TRUEplus Lancets 33G misc TEST BLOOD SUGAR TWICE A DAY 100 each 11 Active FREESTYLE LITE test strip Check blood glucose three times daily and as needed 100 strip 11 025 Active diphenhydrAMIN E (Dacia-Dryl) 25 MG tabletIndicati ons:Allergic reaction, subsequent encounter TAKE 1 OR 2 TABLETS BY MOUTH AT BEDTIME IF NEEDED FOR ITCHING OR FOR ALLERGIES 60 tablet 025 Active melatonin 3 MG tablet TAKE 1 TO 2 TABLETS BY MOUTH 2 HOURS BEFORE BEDTIME 60 tablet 3 025 Active hydrOXYzine pamoate (Vistaril) 25 MG capsule Take 1 capsule (25 mg) by mouth at bedtime. 30 capsule 025 Active traMADol (Ultram) 50 MG tabletIndicati ons:Chronic low back pain, unspecified back pain laterality, unspecified whether sciatica present Take 1 tablet (50 mg) by mouth every 8 (eight) hours. Do not start before August 07, 2025. 30 tablet 025 Active hydrOXYzine pamoate (Vistaril) 25 MG capsule TAKE 1 CAPSULE BY MOUTH AT BEDTIME 30 capsule 1 025 Active sucralfate (Carafate) 1 g tabletIndicati ons:Gastroesop hageal reflux disease, unspecified whether esophagitis present TAKE 1 TABLET BY MOUTH FOUR TIMES DAILY ON AN EMPTY STOMACH BEFORE MEALS AND AT BEDTIME 120 tablet 3 025 Active amitriptyline (Elavil) 50 MG tabletIndicati ons:Depression , unspecified depression type,Insomnia, unspecified type,Chronic pain due to trauma TAKE 1 TABLET BY MOUTH AT BEDTIME 30 tablet 1 Active Farxiga 10 MG TAKE 1 TABLET BY MOUTH EVERY MORNING 90 tablet 025 Active traZODone (Desyrel) 50 MG tablet TAKE 1 TABLET BY MOUTH AT BEDTIME 30 tablet 3 025 Active ergocalciferol (Vitamin D2) 1.25 MG (79854 UT) capsuleIndicat ions:Vitamin D deficiency TAKE 1 CAPSULE BY MOUTH ONCE WEEKLY ON Sunday 12 capsule 1 025 Active ergocalciferol (Vitamin D2) 1.25 MG (11040 UT) capsuleIndicat ions:Vitamin D deficiency TAKE 1 CAPSULE BY MOUTH ONCE WEEKLY ON Sunday 12 capsule 1 025 2024 Discontinued Active Problems Problem Noted Date Diagnosed Date Primary biliary cholangitis (CMS/HCC) 07/12/2025 Assessment & Plan (07/12/2025 7:02 PM EDT): - [facility], Dx in May 2025 - continue following recommendations per GI Chronic liver disease 12/29/2024 Assessment & Plan (03/31/2025 12:56 PM EDT): - following with [facility] - hepatomegaly noted on US - likely MASLD - work on healthy diet - upcoming appointment for CT scan Assessment & Plan (12/29/2024 11:02 PM EST): - following with [facility] - hepatomegaly noted on US - [...] & Plan (03/31/2025 1:09 PM EDT): -current [facility] provider: [facility] -current medications: clonidine; hydroxyzine; sertraline; amitriptyline -will add trazodone 50mg at bed time for insomnia -hydroxyzine was decreased due to prolonged QT -she was able to contract her safety today Assessment & Plan (09/18/2024 12:31 PM EDT): -current [facility] provider: [facility] -current medications: clonidine; hydroxyzine; sertraline; amitriptyline -will add trazodone 50mg at bed time for insomnia -hydroxyzine was decreased due to prolonged QT -she was able to contract her safety today Assessment & Plan (02/08/2024 5:53 PM EDT): -current [facility] provider: [facility] -current medications: clonidine; hydroxyzine; sertraline; amitriptyline -hydroxyzine was decreased due to prolonged QT -she was able to contract her safety today Assessment & Plan (07/21/2023 7:09 AM EDT): -current [facility] provider: [facility] -current medications: clonidine; hydroxyzine; sertraline; amitriptyline -hydroxyzine was decreased due to prolonged QT -she was able to contract her safety today Assessment & Plan (04/05/2023 6:21 PM EDT): -current [facility] provider: [facility] -current medications: clonidine; hydroxyzine; sertraline; amitriptyline -incease amitriptyline to 50 mg qhs for insomnia -she was able to contract her safety today Chronic pain of right knee 04/05/2023 Assessment & Plan (07/12/2025 7:06 PM EDT): -s/p right knee arthroscopy and partial lateral meniscectomy [place] [address] Cole -following with [facility] in May 2025 -s/p hyaluronate derivative [...] Nov [address] Cole -Seen by [facility] in Aug 2019 -Waiting for hyaluronate [...] Nov [address] Cole -Seen by [facility] in Aug 2019 -Waiting for hyaluronate [...] Nov [address] Cole -Seen by [facility] in Aug 2019 -Waiting for hyaluronate [...] Nov [address] Cole -Seen by [facility] in Aug 2019 -Waiting for hyaluronate [...] Nov [address] Cole -Seen by [facility] in Aug 2019 -Waiting for hyaluronate [...] Nov [address] Cole -Seen by [facility] in Aug 2019 -Waiting for hyaluronate [...] modifications - Last eye exam: Nov 2024, [facility], no diabetic retinopathy - Last foot [...] (07/12/2025 7:00 PM EDT): - following with clinical cytogeneticist scientist - likely prerenal component since her renal [...] tunnel release surgery; patient was seen for salesperson hearing aids for clearance. Patient states she has not [...] - continue metoclopramide prn Asthma with COPD ([facility]) 02/20/2023 Assessment & Plan (03/31/2025 12:56 PM EDT): Pt is following w/ director database, last seen on 11/18/23. -Last exacerbation in February 2022, acute respiratory failure with pneumonia, hospitalized in [facility] -Maintenance medication: fluticasone furonate / vilanterol (Breo) and umeclidinium (Incruse) -Treatment Hx: Previously Alvesco and budesonide / formoterol (Symbicort) -Rescue medication: albuterol HFA and nebulizer -Congratulated on smoking cessation effort, encourage to continue Assessment & Plan (12/29/2024 11:00 PM EST): Pt is following w/ director database, last seen on 11/18/23. -Last exacerbation in February 2022, acute respiratory failure with pneumonia, hospitalized in [facility] -Maintenance medication: fluticasone furonate / vilanterol (Breo) and umeclidinium (Incruse) -Treatment Hx: Previously Alvesco and budesonide / formoterol (Symbicort) -Rescue medication: albuterol HFA and nebulizer -Congratulated on smoking cessation effort, encourage to continue Assessment & Plan (09/18/2024 12:28 PM EDT): Pt is following w/ director database, last seen on 11/18/23. -Last exacerbation in February 2022, acute respiratory failure with pneumonia, hospitalized in [facility] -Maintenance medication: fluticasone furonate / vilanterol (Breo) and umeclidinium (Incruse) -Treatment Hx: Previously Alvesco and budesonide / formoterol (Symbicort) -Rescue medication: albuterol HFA and nebulizer -Congratulated on smoking cessation effort, encourage to continue Assessment & Plan (02/08/2024 5:58 PM EDT): Pt is following w/ director database, last seen on 11/18/23. -Last exacerbation in February 2022, acute respiratory failure with pneumonia, hospitalized in [facility] -Maintenance medication: fluticasone furonate / vilanterol (Breo) and umeclidinium (Incruse) -Treatment Hx: Previously Alvesco and budesonide / formoterol (Symbicort) -Rescue medication: albuterol HFA and nebulizer -Congratulated on smoking cessation effort, encourage to continue Assessment & Plan (07/21/2023 6:58 AM EDT): Pt is following w/ director database, last seen on 05/25/22. -Last exacerbation in February 2022, acute respiratory failure with pneumonia, hospitalized in [facility] -Maintenance medication: Symbicort -Treatment Hx: Previously Alvesco -Rescue medication: albuterol HFA and nebulizer -Congratulated on smoking cessation effort, encourage to continue Assessment & Plan (04/05/2023 6:11 PM EDT): Pt is following w/ director database, last seen on 05/25/22. -Last exacerbation in February 2022, acute respiratory failure with pneumonia, hospitalized in [facility] -Maintenance medication: Previously Alvesco, but she has not had one for a while. Start Symbicort. -Rescue medication: albuterol HFA and nebulizer -Congratulated on smoking cessation effort, encourage to continue Assessment & Plan (02/20/2023 5:31 AM EDT): Pt is following w/ director database, last seen on 05/25/22. -Last exacerbation in February 2022, acute respiratory failure with pneumonia, hospitalized in [facility] -Maintenance medication: Symbicort -Rescue medication: albuterol HFA [...] - Evaluated by both pain management and tooling specialist, recommending injection treatment which patient no longer desires. - Currently prescribed lidocaine patch, gabapentin (for both chronic pain of knee, carpal tunnel syndrome, and chronic back pain), and tramadol. - Reviewed judicious use of medications. -Referred to a tooling specialist; consider referring her to captain of guards - Patient declined injection treatment referral again [...] - Evaluated by both pain management and tooling specialist, recommending injection treatment which patient no longer desires. - Currently prescribed lidocaine patch, gabapentin (for both chronic pain of knee, carpal tunnel syndrome, and chronic back pain), and tramadol. - Reviewed judicious use of medications. -Referred to a tooling specialist; consider referring her to captain of guards - Patient declined injection treatment referral again [...] - Rx Lidoderm Patch -Referred to a tooling specialist in Sep 2022 Assessment & Plan [...] - Rx Lidoderm Patch -Referred to a tooling specialist; consider referring her to captain of guards Assessment & Plan (09/21/2024 5:28 AM EDT): [...] - Evaluated by both pain management and tooling specialist, recommending injection treatment which patient no longer desires. - Currently prescribed lidocaine patch, gabapentin (for both chronic pain of knee, carpal tunnel syndrome, and chronic back pain), and tramadol. - Reviewed judicious use of medications. -Referred to a tooling specialist; consider referring her to captain of guards - Patient declined injection treatment referral again [...] (07/12/2025 7:03 PM EDT): - following with [facility] Pain in right leg 07/17/2012 Assessment & Plan (02/20/2023 5:40 AM EDT): -s/p right knee arthroscopy and partial lateral meniscectomy [place] [address] Cole -Seen by [facility] in Aug 2019 -Waiting for hyaluronate derivative injection -Limited analgesic options due to ASA allergy and Hx substance use d/o -Continue APAP prn -Judicious use of tramadol -seen by Monse in Jul 2021, pt is expected to [...] w QTC prolongation( hydroxyzine) -referred today to salesperson hearing aids to further eval QTC prolongation -I called today her previous salesperson hearing aids who was not concern w prolongation for surgery but last eval pt 2 years ago -I would rather have a new evaluation to confirm there are no cardiac risk associated for this nor urgent surgery.-requested referral to coding specialist home health to be done as soon as possible. [...] Encounters Date Type Department Care Team Description 09/21/2025 Refill [facility] [address] [place] [address] Elsa Espitia MD Vitamin D deficiency 08/31/2025 Refill [facility] [address] [place] [address] Elsa Espitia MD 08/27/2025 Refill [facility] [address] [place] [address] Sugey Tyler NP Depression, unspecified depression type; Insomnia, unspecified type; Chronic pain due to trauma 08/27/2025 Refill [facility] [address] [place] [address] Elsa Espitia MD Gastroesophageal reflux disease, unspecified whether esophagitis present; Depression, unspecified depression type; Insomnia, unspecified type; Chronic pain due to trauma 08/06/2025 Telephone [facility] [address] [place], [place] [phone] Cha Gonzalez RN 08/05/2025 Telephone [facility] [address], [place] [phone] Elsa Espitia MD september08/03/2025 Refill [facility] [address] [place] [address] Elsa Espitia MD Chronic low back pain, unspecified back pain laterality, unspecified whether sciatica present 07/10/2025 Orders Only [facility] [address] [place] [phone] Elsa Espitia MD 07/09/2025 Telephone [facility] [address] [place] [phone] Elsa Espitia MD Medication Question 07/09/2025 Refill [facility] [address] [place] [address] Elsa Espitia MD Chronic low back pain, unspecified back pain laterality, unspecified whether sciatica present 07/06/2025 1:15 PM EDT Office Visit [facility] [address] [place] [address] Elsa Espitia MD Type 2 diabetes mellitus with stage [...] skin of back 07/06/2025 Travel 07/06/2025 Refill [facility] [address], [place] [phone] Elsa Espitia MD from Last 3 Months Immunizations Immunization Administration [...] Description 12/07/2025 1:00 PM EST Office Visit [facility] [address] [place], [place] [phone] Pooja Castillo, OD [address] [place] [address] Health Maintenance Due Date Last Done Comments CT Colonography 1966 Colonoscopy 1966 Colorectal Cancer Screening 1966 FIT DNA/Cologuard 1966 FIT 1966 FOBT 1966 Sigmoidoscopy 1966 Alcohol/Substance Use Screening 1978 Pap Smear 1987 HPV/Cotest 1996 Hepatitis A Vaccines (2 of 3 - Hep A Twinrix risk 3-dose series) 06/14/2016 05/17/2016 COVID-19 Vaccine ( - season) 2025 12/16/2021, 06/14/2021, 05/23/2021 Influenza Vaccine (#1) 2025 , 10/17/2023, 08/28/2022, Additional history exists Depression Screening 09/18/2025 09/18/2024, 09/18/20 SDOH Screening 09/18/2025 09/18/2024 Diabetes: Hemoglobin A1C 10/06/2025 025, 03/31/2025, 12/23/2024, Additional history exists Diabetes: Foot Exam 12/23/2025 12/23/2024, 10/17/2023, 10/17/2023, Additional history exists Lipid Panel 12/23/2025 12/23/2024, 03/26, 06/27/2022, Additional history exists DTaP/Tdap/Td Vaccines (3 - Td or Tdap) 05/17/2026 05/17/2016, 09/25/2012, 08/11/2009 Disability Screening 07/06/2026 07/06/2025 Tobacco Screening 07/12/2026 07/12/2025 Eye Exam 10/27/2026 10/27/2024, 12/2023, 10/27/2024, Additional history exists Mammogram 04/06/2027 04/06/2025, 02/24, 05/04/2022, Additional history exists RSV Patients and [...] (CMS/HCC) BI MAMMOGRAM SCREENING TOMOSYNTHESIS BILATERAL Routine 04/06/2025 [...] hemoglobin (Hgb A1c) (07/06/2025 1:14 PM EDT) Hemoglobin A1C 7.3(A) 4.0 - 5.7 % QC Media Lot # [id number] Lot# Expiration Date Blood Capillary blood specimen / Unknown 07/06/2025 1:14 PM EDT us Elsa Espitia MD POINT OF CARE TEST ENTER/EDIT OR DERABLES Final Result * POCT glucose manually resulted (07/06/2025 1:11 PM EDT) Glucose Blood, POC 169 60 - 200 mg/dL QC Media Lot # [id number] Lot# Expiration Date Blood Capillary blood specimen / Unknown 07/06/2025 1:11 PM EDT us Elsa Espitia MD POINT OF CARE TEST ENTER/EDIT OR DERABLES Final Result * BI Mammogram Screening Tomosynthesis Bilateral (04/06/2025 12:15 PM EDT) Anatomical Region Laterality Modality Breast Bilateral Mammography 04/06/2025 12:1 5 PM EDT Narrative 04/12/2025 5:29 PM EDT [facility] [address] [place] [address] Mammography Report Signed Patient: Lakshmi Avalos MR#: [id number] : 1965 Acct:[id number] Age/Sex: 59 / F ADM Date: 04/06/25 Loc: HOGailMAMMKentrell Attending Dr: Elsa Espitia MD Ordering Physician: Elsa Espitia MD Results: 1Negative Date of Service: 04/06/25 Follow Up: 1 Year From Orig ina Mammogram Procedure(s): MM tomosynthesis screening BI Accession Number(s): [id number] cc: Elsa Espitia MD EXAMINATION: MM SCREENING [...] 04/12/25 1727 DD/ 1215 TD/TT: 04/06/25 1231 Industrial Engineering: Procedure Note Donotuseinterpreter, Image - 04/13/2025 [facility] [address] [place] [address] Mammography Report Signed Patient: Lakshmi Avalos MR#: [id number] : 1965Acct:[id number] Age/Sex: 59 / FADM Date: 04/06/25 Loc: HO.MAMMO Attending Dr: Elsa Espitia MD Ordering Physician: Elsa Espitia MDResults: 1Negative Date of Service: 04/06/25Follow Up: 1 Year From Orig inal Mammogram Procedure(s): MM tomosynthesis screening BI Accession Number(s): [id number] cc: Elsa Espitia MD EXAMINATION: MM SCREENING [...] 04/12/25 1727 DD/ 1215 TD/TT: 04/06/25 1231 Industrial Engineering: us Elsa Espitia MD IMG BI PROCEDURES Edited Result - Final * (ABNORMAL) Lipid Panel with Reflex to Direct LDL (12/23/2024 2:54 PM EST) Triglycerides 263(H) <150 mg/dL [facility] Comment:Desirable Triglyceri de: less than 150 mg/dLBorderline High Triglyceride 150-199 mg/dLHigh Triglyceride: 200-499 mg/dLVery High Triglyceride: greater than or equal to 5OO mg/dL Cholesterol 174 <200 mg/dL [facility] Comment:Desirable Cholestero l: less than 200 mg/dLBorderline High Cholesterol: 200-239 mg/dLHigh Cholesterol: greater than 239 mg/dL LDL Cholesterol Calculated 79 <100 mg/dL [facility] Comment:Desirable LDL: less than 100 mg/dLNear Optimal/Above Optimal LDL: 110- 129 mg/dLBorderline High LDL: 130-159 mg/dLHigh LDL: 160-189 mg/dLVery High LDL: greater than or equal to 190 mg/dL HDL Cholesterol 43 >40 mg/dL [facility] Comment:Desirable HDL: great er than 40 mg/dL Note: This HDL assay may give artificially low results in patients with liver disease. Blood 12/23/2024 2:54 PM EST 12/26/2024 9:18 AM EST Elsa Espitia MD LAB BLOOD ORDERABLES Final Resul t [facility] [address] [place] [phone] * HEPATITIS C AB W/REFL TO HCV RNA, QN, PCR (03/30/2021 9:31 AM EDT) HEPATITIS C ANTIBODY NON-REACT ANA NON-REACT ANA [facility] INDEX 0.01 <1.00 [facility] Comment: HCV antibody was non-reactive. There is no laboratory evidence of HCV infection. In most cases, no further action is required. However, if recent HCV exposure is suspected, a test for HCV RNA (test code 74766) is suggested. For additional information please refer to [email or web address] [email or web address]/faq/[email or web address] (This link is being provided for informational/ educational purposes only.) 03/30/2021 9:31 AM EDT Elsa Espitia MD HISTORICAL/NON ORDERABLE LABS Fi nal Result Performing Organization Address [facility] Co de Phone Number [facility] [address] * HIV 1/2 ANTIGEN/ANTIBODY,FOURTH GENERATION W/RFL (03/30/2021 9:31 AM EDT) HIV-1/2 ANTIGEN AND ANTIBODIES, 4TH GENERATION W/ REFLEX NON-REACT ANA NON-REACT ANA [facility] Comment: HIV-1 antigen and HIV-1/HIV-2 [...] purpose. For additional information please refer to [email or web address] MedSystems/faq/COP734 (This link is being provided for informational/ educational purposes only.) The performance of this assay has not been clinically validated in patients less than 2 years old. 03/30/2021 9:31 AM EDT Elsa Espitia MD LAB BLOOD ORDERABLES Final Resul t Performing Organization Address [facility] Co de Phone Number [facility] [address] from Last 3 Months or Most Recently Relevant to Health Maintenance Insurance [facility] C3 Care Teams Timber Packer Relationship Specialty Start Date End Date Elsa Espitia MD [address] [place] [phone] PCP - General Family Medicine 04/04/19 Kath White Technical Writing Lead/MgrField Education Coordinator 03/06/24
--- OUTSIDE RECORDS SUMMARY | 2025-10-05 16:03 | XMS_ITS | Encounter Summary ---
Author Organization [employer] Address [address] [place] [address] Care Team Providers Care Wood Crew Supervisor Name Role Phone Elsa Espitia MD Primary Care Provider [phone] Reason for Visit * Reason Onset Date Comments Referral 06/15/2023 Encounter Details Date Type Department Care Team ([facility] st Contact Info) Description 06/15/2023 Telephone [facility] [address] [place], [place] [phone] Elsa Espitia MD [address] [place], [place] [phone] Referral Social History Tobacco Use Types Packs/Day [...] Description 12/07/2025 1:00 PM EST Office Visit [facility] [address] [place], [place] [phone] Pooja Castillo, OD [address] [place] [address] documented as of this encounter Visit Diagnoses Not on filedocumented in this encounter Additional Health Concerns Assessment Noted Time PHQ-9 Depression Total Score: 0 06/01/20 23 10:46 AM EDT documented as of this encounter Care Teams Wood Crew Supervisor Relationship Specialty Start Date End Date Elsa Espitia MD [address] [place], [place] [phone] PCP - General Family Medicine 04/04/19 Kath White Aircraft Life Support FitterShampoo Technician 03/06/24 documented as of this encounter
--- OUTSIDE RECORDS SUMMARY | 2025-10-05 16:03 | XMS_ITS | Encounter Summary ---
Author Organization [employer] Address [address] [address] [facility] [address] [address] [place] [address] Care Team Providers Care Marinator Name Role Phone Elsa Espitia MD Primary Care Provider [phone] Reason for Visit * Reason Onset Date Comments medical accounting clerk appt no show 06/11/2025 Encounter Details Date Type Department Care Team (Late st Contact Info) Description 06/11/2025 Telephone [facility] [address] [place] [address] Elsa Espitia MD [address] [place] [address] medical accounting clerk appt no show Social History Tobacco Use [...] 11:52 AM EDT Pt NCNS to initial INSTRUCTOR INDUSTRIAL DESIGN [place]. TC to pt via PI ID# [id number]. Appt r/s to 08/06/25 @ 2;30pm at [facility]. documented in this encounter Plan of Treatment Upcoming Encounters Date Type Department Care Team (Late st Contact Info) Description 12/07/2025 1:00 PM EST Office Visit [facility] OPTOMETRY [address] [place] [address] Pooja Castillo, OD [address] [place] [address] documented as of this encounter Visit Diagnoses Not on filedocumented in this encounter Additional Health Concerns Assessment Noted Time PHQ-9 Depression Total Score: 0 09/18/20 10:38 AM EDT documented as of this encounter Care Teams Marinator Relationship Specialty Start Date End Date Elsa Espitia MD [address] [place] [address] PCP - General Family Medicine 04/04/19 Kath White Saas ArchitectJava Programming Professor 03/06/24 documented as of this encounter
--- OUTSIDE RECORDS SUMMARY | 2025-10-05 16:03 | XMS_ITS | Clinical Summary ---
Author Organization [facility] Address [address] [place] [id number] Phone Care Team Providers Care Splicing Machine Operator Name Role Phone Unavailable Primary Care [...] It is not the complete legal health record.[facility]
--- OUTSIDE RECORDS SUMMARY | 2025-10-05 16:03 | XMS_ITS | Encounter Summary ---
Author Organization [employer] Address [address] [facility] [address] [place] [address] Care Team Providers Care Night Manager Name Role Phone Elsa Espitia MD Primary Care Provider [phone] Reason for Visit * Reason Comments Med Refill Encounter Details Date Type Department Care Team ([facility] st Contact Info) Description 09/27/[address] [facility] MEDICINE [address] [place], [place] [phone] Curt Canres MD [address] [place], [place] [phone] Gastroesophageal reflux disease, unspecified whether esophagitis present [...] Description 12/07/2025 1:00 PM EST Office Visit [facility] OPTOMETRY [address] [place], [place] [phone] Pooja Castillo, OD [address] [place] [address] documented as of this encounter Visit Diagnoses Diagnosis Gastroesophageal reflux disease, unspecified whether esophagitis present documented in this encounter Additional Health Concerns Assessment Noted Time PHQ-9 Depression Total Score: 0 06/01/20 23 10:46 AM EDT documented as of this encounter Care Teams Night Manager Relationship Specialty Start Date End Date Elsa Espitia MD [address] [place] [address] PCP - General Family Medicine 04/04/19 Kath White Duty ManagerBusiness Development Consultant 03/06/24 documented as of this encounter
== END 2025-10-05 14:57 | disposition home or self-care (01) ==
LOC: HO.HCS 13:50
PROVIDERS: PCP Family Medicine; Visit Provider Nurse Practitioner Family
DX: R07.89 Other chest pain (principal); R06.09 Other forms of dyspnea; I10 Essential (primary) hypertension; R94.31 Abnormal electrocardiogram [ECG] [EKG]
CPT/HCPCS: 93010; 99214

== ENCOUNTER 2025-10-05 13:49 | Outpatient (REF) | payer MEDICAID, SELFPAY ==
[2025-10-05 16:29] LABS: Alanine Aminotransferase 25 U/L (0-31); Albumin Level 4.2 g/dL (3.5-5.0); Alkaline Phosphatase 136 U/L (39-117); Anion Gap 10 (12-20); Aspartate Amino Transferase 27 U/L (5-31); Blood Urea Nitrogen 12 mg/dL (9-16); Calcium 9.7 mg/dL (8.4-10.2); Carbon Dioxide 31 mmol/L (22-29); Chloride 106 mmol/L (96-108); Estimated Glomerular Filt Rate 58; Gamma Glutamyl Transpeptidase 124 U/L (7-33); Potassium 4.3 mmol/L (3.3-5.1); Sodium 143 mmol/L (135-145); Total Protein 7.4 g/dL (6.5-8.0)
--- OUTSIDE RECORDS SUMMARY | 2025-10-05 17:13 | XMS_ITS | Clinical Summary ---
Author Organization [facility] Address [address] [address] Care Team Providers Care Mule Rider Name Role Phone Elsa Espitia MD Primary Care Provider [phone] Social History Tobacco Use Types Packs/Day Years [...] Insurance Medicaid [place] Medicaid [place] Care Teams Mule Rider Relationship Specialty Start Date End Date Elsa Espitia MD PCP - General Family Medicine 03/20/22
== END 2025-10-05 13:50 | disposition home or self-care (01) ==
LOC: HO.LAB 13:49
PROVIDERS: Absent Provider Nurse Practitioner Family; PCP Family Medicine; Visit Provider Nurse Practitioner Family
DX: K74.3 Primary biliary cirrhosis (principal); I10 Essential (primary) hypertension; R07.89 Other chest pain; R06.09 Other forms of dyspnea; R94.31 Abnormal electrocardiogram [ECG] [EKG]
CPT/HCPCS: 36415; 80053; 82977; 84590; 93005; 99212

== ENCOUNTER 2025-10-06 12:51 | Outpatient (AMB) | payer MEDICAID, SELFPAY ==
--- NOTE | 2025-10-06 12:58 | A.OFFVIS_ITS ---
Vital Signs 10/06/25 12:59 Height 5 ft 2 in Weight 144 lb BMI 26.3 BP 115/73 Blood Pressure Location Lt brachial Position Sitting Pulse 76 Intake Visit Reasons: follow up Intake Note: Patient follow up for Patient follow up for Abscess/lab results. Patient denies any GI issues for today visit. Physician Relations Specialist Required: Yes Physician Relations Specialist Name: [facility] Interpeter Accompanied by: Self / Same As Patient Allergies aspirin (Aspirin) Allergy (Intermediate, Verified 10/06/25 12:57) EYES SWELLING Penicillins Allergy (Intermediate, Verified 10/06/25 12:57) RASH citalopram Allergy (Unknown, Verified 10/06/25 12:57) chest pain Diltiazem HCl Allergy (Unknown, Uncoded 10/05/25 14:25) Unknown HPI HPI follow up: Details: Patient is a 59-year-old Hebrew-speaking female with PMH of diabetes, hypertension, arthritis, asthma, depression and GERD. f/u for PBC management and Rx refill; assess response to ursodiol and monitor liver function. Pt remains compliant with ursodiol, last dose taken on Sunday. Tolerates med well, denies new GI or cutaneous s/s directly related to Rx. Constipation persists, often going 4?5d w/o BM; not using Miralax daily as previously advised, unsure about avail. supply. Vague fatigue and ? bony pain since last visit. Denies skin changes, non-vaginal pruritus, or acute flares. No recent hospitalizations or urgent care visits noted. [facility] Medical History (Updated 10/06/25 @ 15:53 by Tiana Betancourt CNP) Osteopenia Abscess Osteopenia determined by dual energy x-ray photon absorptiometry (DEXA) scan of forearm Primary biliary cholangitis Constipation Former smoker Colon cancer screening Gallbladder polyp Elevated AFP Pleural effusion Bronchopneumonia Diabetes THANH (acute kidney injury) Acute respiratory failure with hypoxia Pneumonia Asthma with acute exacerbation Asthma On beta mariaelena at home Hx of renal calculi Right knee injury Acute anxiety Depression GERD (gastroesophageal reflux disease) HTN (hypertension) Diabetic acidosis, type II Arthritis Surgical History History of hysterectomy Hx of arthroscopy of right knee Hx of cystoscopy Family History Father No problems noted. Mother No problems noted. Maternal Grandmother Cancer Other No family history of coronary artery disease Social History Household Members: None Housing: Apartment Are you a primary care connector to a significant other at home: No Do you presently have visiting nurse or other home services: No Alcohol intake: current Alcohol intake frequency: does not drink Patient Tobacco Use Status: Former Tobacco user Years Smoked: 20 +/- Second Hand Smoke Exposure: No service: No Current occupational status: disabled Current occupation: right hand dominant Review of Systems Const Reports as per HPI ENT Reports as per HPI Card Reports as per HPI Resp Reports as per HPI GI Reports as per HPI Reports as per HPI Physical Exam Vital Signs: Last Vital Signs Pulse 76 10/06/25 12:59 BP 115/73 10/06/25 12:59 BMI result Body Mass Index 26.3 Const General: healthy appearing, no acute distress and well developed Nutritional Appearance: average body habitus Orientation/consciousness: patient oriented x3 HEENT Head: Yes normal to inspection, Yes normocephalic and Yes atraumatic Face and sinus: Yes normal facial exam Eyes General: appearance normal, both eyes and all related structures Neck Neck: Yes normal visual inspection Resp Effort & Inspection: normal respiratory effort, able to speak in complete sentences, no tracheal deviation and symmetric chest movement Cardio Jugular venous distension: no JVD Skin General skin exam: no jaundice Neuro General: patient oriented x3 Gait exam (Neuro): Normal gait present Psych Appearance: grossly normal Mental Status: mental status grossly normal Speech and movement: Normal speech and movement present Affect: normal affect Attitude: cooperative Thought process: Normal thought process present Thought content: Normal thought content present Insight: Good insight present (Psych) Judgement: Good judgement present (Psych) Results Reviewed Results Reviewed: Date of Service: 06/29/25 Follow Up: Procedure(s): XR DEXA axial skeleton Accession Number(s): [id number] cc: Tiana Betancourt CNP~ EXAMINATION: DXA BONE DENSITY AXIAL HISTORY: K74.3 - Primary biliary cirrhosis TECHNIQUE: Cap That Dual energy absorptiometry (DEXA) of the lumbar spine, total left hip, and femoral neck was performed. COMPARISON: There are no prior studies for comparison. FINDINGS: The bone mineral density of the lumbar spine is 1.131 g/cm2, corresponding to a T-score of -0.4, and a Z-score of 0.7. This is indicative of normal bone mineral density. The bone mineral density of the left total hip is 0.844 g/cm2, corresponding to a T-score of -1.3, and a Z-score of -0.4. This is indicative of osteopenia. The bone mineral density of the left femoral neck is 0.734 g/cm2, corresponding to a T-score of -2.2, and a Z-score of -1.0. This is indicative of osteopenia. MM/XR DEXA axial skeleton IMPRESSION: Based on bone mineral density, and according to World Health Organization (WHO) criteria, the diagnosis is consistent with osteopenia. Assessment & Plan Assessment & Plan (1) Primary biliary cholangitis: Code(s): K74.3 - Primary biliary cirrhosis Category: Medical Plan: Improving?Alk phos and GGT decreased, pt stable hepatic standpoint, compliant w/ ursodiol. Continue current dose given lab/clinical response; monitor for Rx tolerance and dz progression. Additional Testing: - Repeat LFTs, GGT prior to next f/u. - repeat Vitamin A pending Medications: - Ursodiol 300 mg qAM + 500 mg qHS PO; renew Rx, continue current dosing. Lifestyle: - Reinforce hydration. Referrals: - Place rheum referral to assess for associated/overlapping autoimmune dz (d/t persistent bony pain, fatigue). F/u: - 6wks, after labs drawn 1wk in advance; review LFTs, vitamin panel, rheum input. (2) Constipation: Code(s): K59.00 - Constipation, unspecified Category: Medical Qualifiers: Constipation type: slow transit constipation Qualified Code(s): K59.01 - Slow transit constipation Plan: Persistent, poorly controlled; pt not adhering to daily Miralax + Ongoing low fiber intake. not worsened by Urosodiol Rx. Additional Testing: - None at this time; pending adequacy of conservative mgmt. Medications: - Reinstate daily Miralax (polyethylene glycol) one heaping capful qd; combination lax/stool softener 2 tabs qHS. Lifestyle: - Senior Trial Attorney increased fiber via preferred foods, encourage trial of beans, legumes if tolerated; increase daily water intake. - Examples of high-fiber dietary options. Referrals: - n/a at this point. F/u: - Reassess stooling pattern at next visit; reinforce compliance. (3) Osteopenia: Code(s): M85.80 - Other specified disorders of bone density and structure, unspecified site Category: Medical Qualifiers: Osteopenia location: multiple sites Qualified Code(s): M85.89 - Other specified disorders of bone density and structure, multiple sites Plan: Affecting left total hip and femoral neck per 06/29/25 DEXA scan. Recommendations for repeat in 2 years (2026) Medication: continue vitamin D and calcium lifestyle modification: weight bearing activity as tolerated. Plan Follow-up 6 weeks or sooner as needed Time: I spent a total of 23 minutes on the date of encounter which includes: Preparing to see the patient (reviewed previous documentation, test results and medical history) Performing a medically appropriate exam and/or evaluation Ordering medications, tests, and procedures Documenting clinical information in the health record Orders: Orders Gamma Glutamyl Transpeptidase 4 Weeks K74.3 - Primary biliary cirrhosis Comprehensive [place]. Panel Fast 4 Weeks K74.3 - Primary biliary cirrhosis Referrals Rheumatology Referral K74.3 - Primary biliary cirrhosis Medications: Changed From ursodiol Take one tablet at bedtime with food. Avoid aluminum-based antacids. 500 mg PO BEDTIME 30 tabs 0RF To ursodiol Take one tablet at bedtime with food. Total daily dose 800 mg. Avoid aluminum-based antacids. 500 mg PO BEDTIME 60 tabs 0RF From ursodiol Take one tablet in the AM with food. Avoid aluminum-based antacids. 300 mg PO DAILY 30 caps 0RF To ursodiol Take one tablet in the AM with food. Total daily dose 800mg. Avoid aluminum- based antacids. 300 mg PO DAILY 60 caps 0RF Refilled polyethylene glycol 3350 (Miralax) Take 17G (one cap full) daily with 8oz of water 17 grams PO DAILY 510 grams 2RF constipation 30 days Coding Level of Care Code Established Pt Est Pt Level 3 (55531) Patient Type Established Diagnoses Primary biliary cholangitis K74.3 Slow transit constipation K59.01 Constipation type: slow transit constipation Osteopenia of multiple sites M85.89 Osteopenia location: multiple sites
[2025-10-06 12:59] VITALS: BP 115/73; PULSE 76; BMI 26.3
--- OUTSIDE RECORDS SUMMARY | 2025-10-06 14:35 | XMS_ITS | Encounter Summary ---
Author Organization [employer] Address [address] [place] [address] [place] [address] Care Team Providers Care Hydrological Technical Officer Name Role Phone Elsa Espitia MD Primary Care Provider [phone] Reason for Visit * Reason Onset Date Comments buyers' agent appt no show 06/11/2025 Encounter Details Date Type Department Care Team (Late st Contact Info) Description 06/11/2025 Telephone [facility] [address] [place] [address] Elsa Espitia MD [address] [place] [address] buyers' agent appt no show Social History Tobacco Use [...] 11:52 AM EDT Pt NCNS to initial ELECTION SUPERVISOR [place]. TC to pt via PI ID# [id number]. Appt r/s to 08/06/25 @ 2;30pm at [facility]. documented in this encounter Plan of Treatment Upcoming Encounters Date Type Department Care Team (Late st Contact Info) Description 12/07/2025 1:00 PM EST Office Visit [facility] OPTOMETRY [address] [place] [address] Pooja Castillo, OD [address] [place] [address] documented as of this encounter Visit Diagnoses Not on filedocumented in this encounter Additional Health Concerns Assessment Noted Time PHQ-9 Depression Total Score: 0 09/18/20 10:38 AM EDT documented as of this encounter Care Teams Hydrological Technical Officer Relationship Specialty Start Date End Date Elsa Espitia MD [address] [place] [address] PCP - General Family Medicine 04/04/[address] Sql DeveloperWeb Content Executive 03/06/24 documented as of this encounter
--- OUTSIDE RECORDS SUMMARY | 2025-10-06 14:36 | XMS_ITS | Encounter Summary ---
Author Organization [employer] Address [address] [place] [address] Care Team Providers Care Glazier Artist Name Role Phone Elsa Espitia MD Primary Care Provider [phone] Reason for Visit * Reason Onset Date Comments Med Refill 07/22/2024 Encounter Details Date Type Department Care Team ([facility] st Contact Info) Description 07/22/2024 Telephone [facility] MEDICINE [address] [place], [place] [phone] Elsa Espitia MD [address] [place], [place] [phone] Med Refill Social History Tobacco Use Types [...] 50 MG tablet To be sent to: [facility] Pharmacy documented in this encounter Plan of Treatment Upcoming Encounters Date Type Department Care Team (Late st Contact Info) Description 12/07/2025 1:00 PM EST Office Visit [facility] OPTOMETRY [address] [place] [address] TarkaPooja, OD [address] [place] [address] documented as of this encounter Visit Diagnoses Not on filedocumented in this encounter Additional Health Concerns Assessment Noted Time PHQ-9 Depression Total Score: 0 06/01/20 23 10:46 AM EDT documented as of this encounter Care Teams Glazier Artist Relationship Specialty Start Date End Date Elsa Espitia MD [address] [place] [address] PCP - General Family Medicine 04/04/19 Kath White Grease And Tallow PumperMetal Fitter 03/06/24 documented as of this encounter
--- OUTSIDE RECORDS SUMMARY | 2025-10-06 14:36 | XMS_ITS | Encounter Summary ---
Author Organization [employer] Address [address] [facility] [address] [address] [place] [address] Care Team Providers Care Melt House Supervisor Name Role Phone Elsa Espitia MD Primary Care Provider [phone] Reason for Visit * Reason Onset Date Comments Referral 06/15/2023 Encounter Details Date Type Department Care Team ([facility] st Contact Info) Description 06/15/2023 Telephone [facility] MEDICINE [address] [place], [place] [phone] Elsa Espitia MD [address] [place], [place] [phone] Referral Social History Tobacco Use Types Packs/Day [...] Description 12/07/2025 1:00 PM EST Office Visit [facility] OPTOMETRY [address] [place], [place] [phone] Pooja Castillo, OD [address] [place] [address] documented as of this encounter Visit Diagnoses Not on filedocumented in this encounter Additional Health Concerns Assessment Noted Time PHQ-9 Depression Total Score: 0 06/01/20 23 10:46 AM EDT documented as of this encounter Care Teams Melt House Supervisor Relationship Specialty Start Date End Date Elsa Espitia MD [address] [place], [place] [phone] PCP - General Family Medicine 04/04/19 Kath White Candle Wrapping Machine OperatorClicker Operator 03/06/24 documented as of this encounter
--- OUTSIDE RECORDS SUMMARY | 2025-10-06 14:36 | XMS_ITS | Clinical Summary ---
Author Organization [employer] Address [address] [facility] [address] [place] [address] Care Team Providers Care Air Launch Weapons Technician Name Role Phone lEsa Espitia MD Primary Care Provider [phone] Allergies Active Allergy Reactions Criticality Noted Date [...] tablet 2 025 Active Pentips Generic Pen [place] 32G X 4 MM misc USE ONCE [...] 025 Active ergocalciferol (Vitamin D2) 1.25 MG (34029 UT) capsuleIndicat ions:Vitamin D deficiency TAKE 1 CAPSULE BY MOUTH ONCE WEEKLY ON Sunday 12 capsule 1 025 Active ergocalciferol (Vitamin D2) 1.25 MG (46330 UT) capsuleIndicat ions:Vitamin D deficiency TAKE 1 CAPSULE BY MOUTH ONCE WEEKLY ON Sunday 12 capsule 1 025 2024 Discontinued Active Problems Problem Noted Date Diagnosed Date Primary biliary cholangitis (CMS/HCC) 07/12/2025 Assessment & Plan (07/12/2025 7:02 PM EDT): - [facility], Dx in May 2025 - continue following recommendations per GI Chronic liver disease 12/29/2024 Assessment & Plan (03/31/2025 12:56 PM EDT): - following with [facility] - hepatomegaly noted on US - likely MASLD - work on healthy diet - upcoming appointment for CT scan Assessment & Plan (12/29/2024 11:02 PM EST): - following with [facility] - hepatomegaly noted on US - [...] & Plan (03/31/2025 1:09 PM EDT): -current [facility] provider: [facility] -current medications: clonidine; hydroxyzine; sertraline; amitriptyline -will add trazodone 50mg at bed time for insomnia -hydroxyzine was decreased due to prolonged QT -she was able to contract her safety today Assessment & Plan (09/18/2024 12:31 PM EDT): -current [facility] provider: [facility] -current medications: clonidine; hydroxyzine; sertraline; amitriptyline -will add trazodone 50mg at bed time for insomnia -hydroxyzine was decreased due to prolonged QT -she was able to contract her safety today Assessment & Plan (02/08/2024 5:53 PM EDT): -current [facility] provider: [facility] -current medications: clonidine; hydroxyzine; sertraline; amitriptyline -hydroxyzine was decreased due to prolonged QT -she was able to contract her safety today Assessment & Plan (07/21/2023 7:09 AM EDT): -current [facility] provider: [facility] -current medications: clonidine; hydroxyzine; sertraline; amitriptyline -hydroxyzine was decreased due to prolonged QT -she was able to contract her safety today Assessment & Plan (04/05/2023 6:21 PM EDT): -current [facility] provider: [facility] -current medications: clonidine; hydroxyzine; sertraline; amitriptyline -incease amitriptyline to 50 mg qhs for insomnia -she was able to contract her safety today Chronic pain of right knee 04/05/2023 Assessment & Plan (07/12/2025 7:06 PM EDT): -s/p right knee arthroscopy and partial lateral meniscectomy [place] [address] Cole -following with [facility] in May 2025 -s/p hyaluronate derivative [...] Nov [address] Cole -Seen by [facility] in Aug 2019 -Waiting for hyaluronate [...] Nov [address] Cole -Seen by [facility] in Aug 2019 -Waiting for hyaluronate [...] Nov [address] Cole -Seen by [facility] in Aug 2019 -Waiting for hyaluronate [...] Nov [address] Cole -Seen by [facility] in Aug 2019 -Waiting for hyaluronate [...] Nov [address] Cole -Seen by [facility] in Aug 2019 -Waiting for hyaluronate [...] Nov [address] Cole -Seen by [facility] in Aug 2019 -Waiting for hyaluronate [...] modifications - Last eye exam: Nov 2024, [facility], no diabetic retinopathy - Last foot exam: [...] (07/12/2025 7:00 PM EDT): - following with pediatric immunologist - likely prerenal component since her renal [...] tunnel release surgery; patient was seen for quill cleaner for clearance. Patient states she has not [...] - continue metoclopramide prn Asthma with COPD ([facility]) 02/20/2023 Assessment & Plan (03/31/2025 12:56 PM EDT): Pt is following w/ surgery assistant, last seen on 11/18/23. -Last exacerbation in February 2022, acute respiratory failure with pneumonia, hospitalized in [facility] -Maintenance medication: fluticasone furonate / vilanterol (Breo) and umeclidinium (Incruse) -Treatment Hx: Previously Alvesco and budesonide / formoterol (Symbicort) -Rescue medication: albuterol HFA and nebulizer -Congratulated on smoking cessation effort, encourage to continue Assessment & Plan (12/29/2024 11:00 PM EST): Pt is following w/ surgery assistant, last seen on 11/18/23. -Last exacerbation in February 2022, acute respiratory failure with pneumonia, hospitalized in [facility] -Maintenance medication: fluticasone furonate / vilanterol (Breo) and umeclidinium (Incruse) -Treatment Hx: Previously Alvesco and budesonide / formoterol (Symbicort) -Rescue medication: albuterol HFA and nebulizer -Congratulated on smoking cessation effort, encourage to continue Assessment & Plan (09/18/2024 12:28 PM EDT): Pt is following w/ surgery assistant, last seen on 11/18/23. -Last exacerbation in February 2022, acute respiratory failure with pneumonia, hospitalized in [facility] -Maintenance medication: fluticasone furonate / vilanterol (Breo) and umeclidinium (Incruse) -Treatment Hx: Previously Alvesco and budesonide / formoterol (Symbicort) -Rescue medication: albuterol HFA and nebulizer -Congratulated on smoking cessation effort, encourage to continue Assessment & Plan (02/08/2024 5:58 PM EDT): Pt is following w/ surgery assistant, last seen on 11/18/23. -Last exacerbation in February 2022, acute respiratory failure with pneumonia, hospitalized in [facility] -Maintenance medication: fluticasone furonate / vilanterol (Breo) and umeclidinium (Incruse) -Treatment Hx: Previously Alvesco and budesonide / formoterol (Symbicort) -Rescue medication: albuterol HFA and nebulizer -Congratulated on smoking cessation effort, encourage to continue Assessment & Plan (07/21/2023 6:58 AM EDT): Pt is following w/ surgery assistant, last seen on 05/25/22. -Last exacerbation in February 2022, acute respiratory failure with pneumonia, hospitalized in [facility] -Maintenance medication: Symbicort -Treatment Hx: Previously Alvesco -Rescue medication: albuterol HFA and nebulizer -Congratulated on smoking cessation effort, encourage to continue Assessment & Plan (04/05/2023 6:11 PM EDT): Pt is following w/ surgery assistant, last seen on 05/25/22. -Last exacerbation in February 2022, acute respiratory failure with pneumonia, hospitalized in [facility] -Maintenance medication: Previously Alvesco, but she has not had one for a while. Start Symbicort. -Rescue medication: albuterol HFA and nebulizer -Congratulated on smoking cessation effort, encourage to continue Assessment & Plan (02/20/2023 5:31 AM EDT): Pt is following w/ surgery assistant, last seen on 05/25/22. -Last exacerbation in February 2022, acute respiratory failure with pneumonia, hospitalized in [facility] -Maintenance medication: Symbicort -Rescue medication: albuterol HFA [...] - Evaluated by both pain management and geoscience specialist, recommending injection treatment which patient no longer desires. - Currently prescribed lidocaine patch, gabapentin (for both chronic pain of knee, carpal tunnel syndrome, and chronic back pain), and tramadol. - Reviewed judicious use of medications. -Referred to a geoscience specialist; consider referring her to stock hanger - Patient declined injection treatment referral again [...] - Evaluated by both pain management and geoscience specialist, recommending injection treatment which patient no longer desires. - Currently prescribed lidocaine patch, gabapentin (for both chronic pain of knee, carpal tunnel syndrome, and chronic back pain), and tramadol. - Reviewed judicious use of medications. -Referred to a geoscience specialist; consider referring her to stock hanger - Patient declined injection treatment referral again [...] - Rx Lidoderm Patch -Referred to a geoscience specialist in Sep 2022 Assessment & Plan [...] - Rx Lidoderm Patch -Referred to a geoscience specialist; consider referring her to stock hanger Assessment & Plan (09/21/2024 5:28 AM EDT): [...] - Evaluated by both pain management and geoscience specialist, recommending injection treatment which patient no longer desires. - Currently prescribed lidocaine patch, gabapentin (for both chronic pain of knee, carpal tunnel syndrome, and chronic back pain), and tramadol. - Reviewed judicious use of medications. -Referred to a geoscience specialist; consider referring her to stock hanger - Patient declined injection treatment referral again [...] (07/12/2025 7:03 PM EDT): - following with [facility] Pain in right leg 07/17/2012 Assessment & Plan (02/20/2023 5:40 AM EDT): -s/p right knee arthroscopy and partial lateral meniscectomy [place] [address] Cole -Seen by [facility] ortho in Aug 2019 -Waiting for hyaluronate [...] w QTC prolongation( hydroxyzine) -referred today to quill cleaner to further eval QTC prolongation -I called today her previous quill cleaner who was not concern w prolongation for surgery but last eval pt 2 years ago -I would rather have a new evaluation to confirm there are no cardiac risk associated for this nor urgent surgery.-requested referral to pacs specialist to be done as soon as [...] Type Department Care Team Description 09/21/2025 Refill [facility] [address] [place] [address] Elsa Espitia MD Vitamin D deficiency 08/31/2025 Refill [facility] [address] [place] [address] Elsa Espitia MD 08/27/2025 Refill [facility] [address] [place] [address] Sugey Tyler NP Depression, unspecified depression type; Insomnia, unspecified type; Chronic pain due to trauma 08/27/2025 Refill [facility] [address] [place] [address] Elsa Espitia MD Gastroesophageal reflux disease, unspecified whether esophagitis present; Depression, unspecified depression type; Insomnia, unspecified type; Chronic pain due to trauma 08/06/2025 Telephone [facility] [address] [place], [place] [phone] Cha Gonzalez RN 08/05/2025 Telephone [facility] [address] [place], [place] [phone] Elsa Espitia MD september08/03/2025 Refill [facility] [address] [place] [address] Elsa Espitia MD Chronic low back pain, unspecified back pain laterality, unspecified whether sciatica present 07/10/2025 Orders Only [facility] [address] [place] [address] [phone] Elsa Espitia MD 07/09/2025 Telephone [facility] [address] [place] [phone] Elsa Espitia MD Medication Question 07/09/2025 Refill [facility] [address] [place] [address] Elsa Espitia MD Chronic low back pain, unspecified back pain laterality, unspecified whether sciatica present 07/06/2025 1:15 PM EDT Office Visit [facility] [address] [place] [address] Elsa Espitia MD Type 2 diabetes mellitus [...] skin of back 07/06/2025 Travel 07/06/2025 Refill [facility] [address] [place], [place] [phone] Elsa Espitia MD from Last 3 Months [...] Description 12/07/2025 1:00 PM EST Office Visit [facility] [address] [place], [place] [phone] Pooja Castillo, OD [address] [place] [address] Health Maintenance Due Date Last Done Comments [...] EDT Narrative 04/12/2025 5:29 PM EDT [facility] [address] [place] [address] Mammography Report Signed Patient: Lakshmi Avalos MR#: [id number] : 1965 Acct:[id number] Age/Sex: 59 / F ADM Date: 04/06/25 Loc: HOGail[facility]AM[facility] Attending Dr: Elsa Espitia MD Ordering Physician: Esla Espitia MD Results: 1Negative Date of Service: 04/06/25 Follow Up: 1 Year From Orig ina Mammogram Procedure(s): MM tomosynthesis screening BI Accession Number(s): [id number] cc: Elsa Espitia MD EXAMINATION: MM SCREENING [...] 04/12/25 1727 DD/ 1215 TD/TT: 04/06/25 1231 Television Agent: Procedure Note Donotuseinterpreter, Image - 04/13/2025 [facility] [address] [place] [address] Mammography Report Signed Patient: Lakshmi Avalos MR#: [id number] : 1965Acct:[id number] Age/Sex: 59 / FADM Date: 04/06/25 Loc: HO.MAMMO Attending Dr: Elsa Espitia MD Ordering Physician: Elsa Espitia MDResults: 1Negative Date of Service: 04/06/25Follow Up: 1 Year From Orig inal Mammogram Procedure(s): MM tomosynthesis screening BI Accession Number(s): [id number] cc: Elsa Espitia MD EXAMINATION: MM SCREENING [...] 04/12/25 1727 DD/ 1215 TD/TT: 04/06/25 1231 Television Agent: us Elsa Espitia MD IMG BI PROCEDURES Edited Result - Final * (ABNORMAL) Lipid Panel with Reflex to Direct LDL (12/23/2024 2:54 PM EST) Triglycerides 263(H) <150 mg/dL [facility] Comment:Desirable Triglyceri de: less than 150 mg/dLBorderline High Triglyceride 150-199 mg/dLHigh Triglyceride: 200-499 mg/dLVery High Triglyceride: greater than or equal to 5OO mg/dL Cholesterol 174 <200 mg/dL [facility] Comment:Desirable Cholestero l: less than 200 mg/dLBorderline High Cholesterol: 200-239 mg/dLHigh Cholesterol: greater than 239 mg/dL LDL Cholesterol Calculated 79 <100 mg/dL [facility] Comment:Desirable LDL: less than 100 mg/dLNear Optimal/Above Optimal LDL: 110- 129 mg/dLBorderline High LDL: 130-159 mg/dLHigh LDL: 160-189 mg/dLVery High LDL: greater than or equal to 190 mg/dL HDL Cholesterol 43 >40 mg/dL [facility] Comment:Desirable HDL: great er than 40 mg/dL Note: This HDL assay may give artificially low results in patients with liver disease. Blood 12/23/2024 2:54 PM EST 12/26/2024 9:18 AM EST Elsa Espitia MD LAB BLOOD ORDERABLES Final Resul t [facility] [address] [place] [phone] * HEPATITIS C AB W/REFL TO [...] a test for HCV RNA (test code 18618) is suggested. For additional information please refer to http://education.[employer].FinanzCheck/faq/NOV90n3 (This link is being provided for informational/ educational purposes only.) 03/30/2021 9:31 AM EDT Elsa Espitia MD HISTORICAL/NON ORDERABLE LABS Fi nal Result Performing Organization Address [facility] Co de Phone Number [facility] [address] * HIV 1/2 ANTIGEN/ANTIBODY,FOURTH GENERATION W/RFL [...] purpose. For additional information please refer to http://[employer].FinanzCheck/faq/NRA382 (This link is being provided for informational/ educational purposes only.) The performance of this assay has not been clinically validated in patients less than 2 years old. 03/30/2021 9:31 AM EDT Elsa Espitia MD LAB BLOOD ORDERABLES Final Resul t Performing Organization Address [facility] Co de Phone Number [facility] [address] from Last 3 Months or Most Recently Relevant to Health Maintenance Insurance [facility] C3 Care Teams Air Launch Weapons Technician Relationship Specialty Start Date End Date Elsa Espitia MD [address] [place] [phone] PCP - General Family Medicine 04/04/19 Kath White Waterworks Pump Station OperatorElectrical Engineering Director 03/06/24
--- OUTSIDE RECORDS SUMMARY | 2025-10-06 14:36 | XMS_ITS | Clinical Summary ---
Author Organization [facility] Facility Address [address] [address] Care Team Providers Care Loading Dock Hand Name Role Phone Elsa Espitia MD Primary Care Provider [phone] Social History Tobacco Use Types Packs/Day Years [...] Insurance Medicaid [place] Care Teams Loading Dock Hand Relationship Specialty Start Date End Date Elsa Espitia MD PCP - General Family Medicine 03/20/22
--- OUTSIDE RECORDS SUMMARY | 2025-10-06 14:36 | XMS_ITS | Clinical Summary ---
Author Organization [facility] Address [address] [place] [phone] Phone Care Team Providers Care Sales And Service Agent Name Role Phone Unavailable Primary Care Provider [...] It is not the complete legal health record.[facility]
--- OUTSIDE RECORDS SUMMARY | 2025-10-06 14:36 | XMS_ITS | Encounter Summary ---
Author Organization [employer] Address [address] [facility] 7t [place] [address] Care Team Providers Care Cooker Chip Name Role Phone Elsa Espitia MD Primary Care Provider [phone] Reason for Referral * Consultation (Routine) - Closed Specialty Diagnoses / Procedures Referred By Contac t Referred To Contact Behavioral Health Diagnoses Major depressive disorder, remission status unspecified, unspecified whether recurrent Anxiety Elsa Espitia MD [address] [place] [phone] Phone: tel: fax: Referral ID Status Reason Start Date Expiration Date V isits Requested Visits Authorized [id number] Closed Specialty Services Required 02/12/2025 02/12/2026 1 1 Encounter Details Date Type Department Care Team (Late st Contact Info) Description 02/12/2025 Orders Only [facility] [address] [place] [phone] Elsa Espitia MD [address] [place] [address] [phone] Major depressive disorder, remission status unspecified, unspecified [...] Description 12/07/2025 1:00 PM EST Office Visit [facility] [address] [place] [address] Pooja Castillo, ANNAMARIA [address] [place] [address] Scheduled Referrals Name Type Priority Associated Diagnoses [...] documented as of this encounter Care Teams Cooker Chip Relationship Specialty Start Date End Date Elsa Espitia MD [address] [place] [phone] PCP - General Family Medicine 04/04/19 Kath White Boner MeatCollege Director 03/06/24 documented as of this encounter
--- OUTSIDE RECORDS SUMMARY | 2025-10-06 14:36 | XMS_ITS | Encounter Summary ---
Author Organization [employer] Address [address] [place] [address] Care Team Providers Care Slot Floor Attendant Name Role Phone Elsa Espitia MD Primary Care Provider [phone] Reason for Visit * Reason Onset Date Comments Medication Question 07/22/2024 Encounter Details Date Type Department Care Team ([facility] st Contact Info) Description 07/22/2024 Telephone [facility] [address] [place], [place] [phone] Elsa Espitia MD [address] [place], [place] [phone] Medication Question Social History Tobacco Use Types [...] EDT TC placed to pt with a [place] cat scan technologist to inquire which prescription pt needs a refill on. Per pt, the insulin pen needle (Pentips) 32G X 4 mm is needed. Medication queued to PCP for review * Telephone Encounter - Angel Gallo - 07/22/2024 1:44 PM EDT Tc from pt requesting needles for checking blood sugar. If any questions you can contact pt at [phone]. (Norwegian Speaker) documented in this encounter Plan of Treatment Upcoming Encounters Date Type Department Care Team (Late st Contact Info) Description 12/07/2025 1:00 PM EST Office Visit [facility] [address] [place] [address] TarkaPooja, OD [address] [place] [address] documented as of this encounter Visit Diagnoses Not on filedocumented in this encounter Additional Health Concerns Assessment Noted Time PHQ-9 Depression Total Score: 0 06/01/20 23 10:46 AM EDT documented as of this encounter Care Teams Slot Floor Attendant Relationship Specialty Start Date End Date Elsa Espitia MD [address] [place] [address] PCP - General Family Medicine 04/04/19 Kath White Plumber CubPump Attendant 03/06/24 documented as of this encounter
--- OUTSIDE RECORDS SUMMARY | 2025-10-06 14:36 | XMS_ITS | Encounter Summary ---
Author Organization [employer] Address [address] [facility] [address] [facility] [address] [place] [address] Care Team Providers Care Sas Administrator Name Role Phone Elsa Espitia MD Primary Care Provider [phone] Reason for Visit * Reason Comments Med Refill Encounter Details Date Type Department Care Team ([facility] st Contact Info) Description 09/27/2023 Refill [facility] [address] [place], [place] [phone] Curt Carnes MD [address] [place], [place] [phone] Gastroesophageal reflux disease, unspecified whether esophagitis present [...] Description 12/07/2025 1:00 PM EST Office Visit [facility] [address] [place], [place] [phone] Pooja Castillo, OD [address] [place] [address] documented as of this encounter Visit Diagnoses Diagnosis Gastroesophageal reflux disease, unspecified whether esophagitis present documented in this encounter Additional Health Concerns Assessment Noted Time PHQ-9 Depression Total Score: 0 06/01/20 23 10:46 AM EDT documented as of this encounter Care Teams Sas Administrator Relationship Specialty Start Date End Date Elsa Espitia MD [address] [place] [address] PCP - General Family Medicine 04/04/19 Kath White Combustion AnalystGreen Jobs Trainer 03/06/24 documented as of this encounter
--- OUTSIDE RECORDS SUMMARY | 2025-10-06 14:36 | XMS_ITS | Encounter Summary ---
Author Organization [employer] Address [address] [place] [address] Care Team Providers Care Scientific Programmer Name Role Phone Elsa Espitia MD Primary Care Provider [phone] Encounter Details Date Type Department Care Team ([facility] st Contact Info) Description 07/22/2024 Orders Only [facility] [address] [place], [place] [phone] Elsa Espitia MD [address] [place], [place] [phone] Social History Tobacco Use Types Packs/Day Years [...] t he electric, gas, oil or water Insightera threatened to shut off services in your [...] Description 12/07/2025 1:00 PM EST Office Visit [facility] [address] [place] [address] Pooja Castillo, OD [address] [place] [address] documented as of this encounter Visit Diagnoses Not on filedocumented in this encounter Additional Health Concerns Assessment Noted Time PHQ-9 Depression Total Score: 0 06/01/20 23 10:46 AM EDT documented as of this encounter Care Teams Scientific Programmer Relationship Specialty Start Date End Date Elsa Espitia MD [address] [place] [address] PCP - General Family Medicine 04/04/19 Kath White Charging Car OperatorCashier Assistant 03/06/24 documented as of this encounter
--- OUTSIDE RECORDS SUMMARY | 2025-10-06 14:36 | XMS_ITS | Encounter Summary ---
Author Organization [employer] Address [address] [place] [address] Care Team Providers Care Codifier Name Role Phone Elsa Espitia MD Primary Care Provider [phone] Encounter Details Date Type Department Care Team ([facility] st Contact Info) Description 07/10/2025 Orders Only [facility] MEDICINE [address] [place] [address] Elsa Espitia MD [address] [place], [place] [phone] Social History Tobacco Use Types Packs/Day Years [...] PM EST Office Visit [facility] [address] [place] [address] Tarka, Pooja, OD [address] [place] [address] documented as of this encounter Visit Diagnoses Not on filedocumented in this encounter Additional Health Concerns Assessment Noted Time PHQ-9 Depression Total Score: 0 09/18/20 10:38 AM EDT documented as of this encounter Care Teams Codifier Relationship Specialty Start Date End Date Elsa Espitia MD [address] [place] [address] PCP - General Family Medicine 04/04/19 Kath White [employer] ExpertOre Smelter 03/06/24 documented as of this encounter
--- OUTSIDE RECORDS SUMMARY | 2025-10-06 14:36 | XMS_ITS | Encounter Summary ---
Author Organization [employer] Address [address] [place] [address] Care Team Providers Care Cda Teacher Name Role Phone Elsa Espitia MD Primary Care Provider [phone] Reason for Visit * Reason Comments Med Refill Encounter Details Date Type Department Care Team ([facility] st Contact Info) Description 10/29/2024 Refill [facility] MEDICINE [address] [place], [place] [phone] Elsa Espitia MD [address] [place], [place] [phone] Chronic low back pain, unspecified back pain [...] PM EST Office Visit [facility] [address] [place] [address] Pooja Castillo OD [address] [place] [address] documented as of this encounter Visit Diagnoses Diagnosis Chronic low back pain, unspecified back pain laterality, unspecified whether sciatica present documented in this encounter Additional Health Concerns Assessment Noted Time PHQ-9 Depression Total Score: 0 09/18/20 24 10:38 AM EDT documented as of this encounter Care Teams Cda Teacher Relationship Specialty Start Date End Date Elsa Espitia MD [address] [place] [address] PCP - General Family Medicine 04/04/19 Kath White Agriculture InternPainter Apprentice 03/06/24 documented as of this encounter
== END 2025-10-06 13:52 | disposition home or self-care (01) ==
LOC: HO.HGI 12:52
PROVIDERS: PCP Family Medicine; Visit Provider Nurse Practitioner Family
DX: K74.3 Primary biliary cirrhosis (principal); K59.01 Slow transit constipation; M85.89 Other specified disorders of bone density and structure, multiple sites
CPT/HCPCS: 99213

== ENCOUNTER → 2025-10-06 12:51 | Outpatient (BNVA) | payer MEDICAID, SELFPAY | PROVIDERS: PCP Family Medicine; Visit Provider Nurse Practitioner Family | DX: K74.3 Primary biliary cirrhosis (principal); K59.01 Slow transit constipation; M85.89 Other specified disorders of bone density and structure, multiple sites | CPT/HCPCS: 99212 ==

== ENCOUNTER 2025-10-14 13:07 | Outpatient (AMB) | payer MEDICAID, SELFPAY ==
--- NOTE | 2025-10-14 13:21 | HO.NEPHOV ---
Vital Signs 10/14/25 13:25 Height 5 ft 2 in Weight 144 lb BMI 26.3 BP 110/70 Blood Pressure Location Lt brachial Position Sitting Pulse 93 Pulse Source Pulse Oximeter Pulse Oximetry (%) 96 Oxygen Delivery Method Room Air Intake Visit Reasons: 3mon f/u-Conf Transport Assistant Required: Yes Transport Assistant Language: Film Sound Coordinator Services: Transport Assistant Present Transport Assistant Name: [id number] Information Interpreted: clinical only Accompanied by: Self / Same As Patient Allergies aspirin (Aspirin) Allergy (Intermediate, Verified 10/14/25 13:25) EYES SWELLING Penicillins Allergy (Intermediate, Verified 10/14/25 13:25) RASH citalopram Allergy (Unknown, Verified 10/14/25 13:25) chest pain Diltiazem HCl Allergy (Unknown, Uncoded 10/05/25 14:25) Unknown HPI Comments Details: 59-year-old lady with past medical history of hypertension, diabetes mellitus, COPD with CKD stage 3 is here to followup visit. Interpretor [id number]. Her blood pressures are very well controlled on lisinopril and clonidine along with metoprolol 50 mg b.i.d. Her blood sugars are well-controlled 2, HbA1c 7.1 on insulin Lantus, Trulicity and Farxiga She has a history of renal stone US kidneys, CT abdomen and pelvis showed atrophic left kidney in 10/2023. US in 2021 showed normal kidneys [facility] Medical History (Updated 10/06/25 @ 15:53 by Tiana Betancourt CNP) Osteopenia Abscess Osteopenia determined by dual energy x-ray photon absorptiometry (DEXA) scan of forearm Primary biliary cholangitis Constipation Former smoker Colon cancer screening Gallbladder polyp Elevated AFP Pleural effusion Bronchopneumonia Diabetes THANH (acute kidney injury) Acute respiratory failure with hypoxia Pneumonia Asthma with acute exacerbation Asthma On beta mariaelena at home Hx of renal calculi Right knee injury Acute anxiety Depression GERD (gastroesophageal reflux disease) HTN (hypertension) Diabetic acidosis, type II Arthritis Surgical History History of hysterectomy Hx of arthroscopy of right knee Hx of cystoscopy Family History Father No problems noted. Mother No problems noted. Maternal Grandmother Cancer Other No family history of coronary artery disease Social History Household Members: None Housing: Apartment Are you a primary adult live in caregiver to a significant other at home: No Do you presently have visiting nurse or other home services: No Alcohol intake: current Alcohol intake frequency: does not drink Patient Tobacco Use Status: Former Tobacco user Years Smoked: 20 +/- Second Hand Smoke Exposure: No service: No Current occupational status: disabled Current occupation: right hand dominant Review of Systems Const Details: Const : no body aches, no chills, no excessive sweating and no fatigue Eyes: no blurry vision and no change in vision ENT: no bleeding gums and no change in voice, no dizziness Card: no chest pain, no shortness of breath, no orthopnea, no PND Resp: no cough, no excessive phlegm production, no SOB GI: no abdominal pain and no nausea, no vomiting : no hematuria, no urinary frequency and no difficulty voiding Musc: no abnormal gait, no bone pain Neuro: no abnormal movements, no weakness, no dizziness, no abnormal gait and no behavioral changes Psych: no behavioral changes and no change in appetite Endo: no change in body appearance, no cold intolerance, no excessive sweating and no fatigue Physical Exam Vital Signs: Last Vital Signs Pulse 93 10/14/25 13:25 BP 110/70 10/14/25 13:25 Pulse Ox 96 10/14/25 13:25 Oxygen Delivery Method Room Air 10/14/25 13:25 BMI result Body Mass Index 26.3 General: not in any acute distress, comfortable Nutritional Appearance: well nourished and normal weight Eyes: normal position, no icterus Neck: No lymphadenopathy, no thyromegaly Resp: bilateral air entry equal, no added sounds present Cardio: normal S1, S2 heard, no murmur heard, no edema GI: soft, nontender, no guarding, no hepatosplenomegaly : bladder normal to inspection, bladder normal to palpation, no renal angle tenderness Skin: no rashes or lesions noted and elasticity normal Neuro: oriented to person, oriented to place, oriented to time and moves all extremities Results Reviewed Nephrology Results: Hgb, (12.0-16.0) 12.4 g/dl 07/02/25 WBC, (4.8-10.8) 6.9 X10*3/uL 07/02/25 Plt Count, (160-400) 255 X10*3/uL 07/02/25 Sodium, (135-145) 143 mmol/L 10/05/25 Potassium, (3.3-5.1) 4.3 mmol/L 10/05/25 Chloride, (96-108) 106 mmol/L 10/05/25 Carbon Dioxide, (22-29) 31 mmol/L H 10/05/25 BUN, (9-16) 12 mg/dL 10/05/25 Creatinine, (0.5-1.4) 0.98 mg/dL 10/05/25 Calcium, (8.4-10.2) 9.7 mg/dL 10/05/25 Renal US 06/11/25 Assessment & Plan Assessment & Plan (1) HTN (hypertension): Code(s): I10 - Essential (primary) hypertension Category: Medical (2) Diabetes: Comment: Reviewed medications Code(s): E11.9 - Type 2 diabetes mellitus without complications Category: Medical (3) CKD (chronic kidney disease): Code(s): N18.9 - Chronic kidney disease, unspecified Category: Medical (4) Kidney stones: Code(s): N20.0 - Calculus of kidney Category: Medical Plan Chronic kidney disease stage III - creatinine 0.98 , GFR close to 60 , - urine protein creatinine ratio: <5 - CT kidneys showed atrophic left kidney, possibly patient has single functional kidney. - avoid nephrotoxic medications not limited to NSAIDs, contrast etc. - importance of diet, weight loss, adequate blood pressure control, well explained to patient. Non smoker. - continue Farxiga, lisinopril that would decrease the risk for renal disease Diabetes mellitus: - well controlled, HbA1c 7.1 - continue Lantus, Trulicity, Farxiga; can continue metformin if needed until the GFR is about 30 Hypertension: - blood pressures are well controlled, on lower side today - target blood pressures less than 130 systolic - continue clonidine PM, metoprolol. - lisinopril witheld due to low blood pressures, will restart if she develops proteinuria History of renal stone: - Patient has a history of renal stone, CT showing atrophic left kidney - no evidence of calculi in the US kidneys or ureter. Right kidney 11.3 cms - advised her for low-salt intake, fluid intake for at least 2-3 L, can take alot of lemonade with no sugar, advised her for weight loss. Patient has been very excellently managed by primary care; followup in 6 months with repeat urine labs. Orders: Orders UA and rflx microscopic 6 Months I10 - Essential (primary) hypertension, N18.9 - Chronic kidney disease, unspecified, N20.0 - Calculus of kidney Microalbumin, Random (w Creat) 6 Months I10 - Essential (primary) hypertension, N18.9 - Chronic kidney disease, unspecified, N20.0 - Calculus of kidney Total Protein Urine Random 6 Months I10 - Essential (primary) hypertension, N18.9 - Chronic kidney disease, unspecified, N20.0 - Calculus of kidney Basic Metabolic Panel 6 Months I10 - Essential (primary) hypertension, N18.9 - Chronic kidney disease, unspecified, N20.0 - Calculus of kidney Coding Level of Care Code Est Pt Level 4 (25328) Diagnoses HTN (hypertension) I10 Diabetes E11.9 CKD (chronic kidney disease) N18.9 Kidney stones N20.0
[2025-10-14 13:25] VITALS: BP 110/70; PULSE 93; O2SAT 96; BMI 26.3
--- OUTSIDE RECORDS SUMMARY | 2025-10-15 01:02 | XMS_ITS | Clinical Summary ---
Author Organization [facility] Facility Address [address] [address] Care Team Providers Care Water Vessel Captain Name Role Phone Elsa Espitia MD Primary Care Provider [phone] Social History Tobacco Use Types Packs/Day Years [...] [place] Medicaid [place] Care Teams Water Vessel Captain Relationship Specialty Start Date End Date Elsa Espitia MD PCP - General Family Medicine 03/20/22
--- OUTSIDE RECORDS SUMMARY | 2025-10-15 01:02 | XMS_ITS | Clinical Summary ---
Author Organization [facility] Address [address] [place] [id number] Phone Care Team Providers Care Medical Recruiter Name Role Phone Unavailable Primary Care Provider [...] It is not the complete legal health record.[facility]
== END 2025-10-14 13:46 | disposition home or self-care (01) ==
LOC: HO.HKA 13:08
PROVIDERS: PCP Family Medicine; Visit Provider Internal Medicine Critical Care Medicine
DX: I12.9 Hypertensive chronic kidney disease with stage 1 through stage 4 chronic kidney disease, or unspecified chronic kidney disease (principal); E11.9 Type 2 diabetes mellitus without complications; N18.9 Chronic kidney disease, unspecified; N20.0 Calculus of kidney
CPT/HCPCS: 99214

== ENCOUNTER → 2025-10-14 13:07 | Outpatient (BNVA) | payer MEDICAID, SELFPAY | PROVIDERS: PCP Family Medicine; Visit Provider Internal Medicine Critical Care Medicine | DX: I10 Essential (primary) hypertension (principal); N20.0 Calculus of kidney; E11.9 Type 2 diabetes mellitus without complications; N18.30 Chronic kidney disease, stage 3 unspecified | CPT/HCPCS: 99212 ==